=== PATIENT | female | born 1975 | race Caucasian/White ===

== ENCOUNTER 2017-11-20 15:06 | Observation (INO) | payer MEDICAID, SELFPAY ==
[2017-11-20 15:06] VITALS: BP 145/90; PULSE 111; RESP 16; TEMP 36.4; O2SAT 97; BMI 47.5
--- NOTE | 2017-11-20 15:36 | ED.VISSUMM ---
- ER Visit Summary Date of Service: 11/20/17 Chief Complaint: Headache History of Present Illness: The patient is a 42 F presenting with headache which started today and gradually worsened. She has had nausea, photophobia, vertigo. She denies vomiting. She states earlier in the week she had vomiting and diarrhea. This has since slowed down. She states her headache started today while out in the heat. She has a history of migraines but has not had one for some time and did not have any medications. She typically does not have vertigo associated with her headaches. She has a history of diabetes. Physical Examination: Vitals are stable. Patient is afebrile. Alert no acute distress. HEENT exam is unremarkable. Neck is supple. No meningismus Lungs are clear and equal bilaterally. Heart is regular rate and rhythm. Abdomen is soft nontender nondistended. Extremities are unremarkable. Skin is warm and dry. No focal neurologic deficit. Normal strength and sensation Remainder of exam is unremarkable. Emergency Department Course and Treatment: Patient is given IV fluids, Reglan, Benadryl. She had improvement but continues to have pain. She is given Toradol IV. CTA head unremarkable. CTA neck shows normal bilateral cervical carotid. There is either stenotic narrowing, slow flow, or occlusion of the distal right vertebral artery. Normal left Vertebral artery. Patient has had migraines in the past but she has never had associated vertigo. Discussed with Dr. Abdul and the hospitalist for admission. Disposition: Admission Impression: Headache, vertigo, abnormal CTA neck This note was generated with [employer] dictation software. It may contain incorrect words, spelling, and punctuation that were not noted in review of the chart prior to signing ED Disposition - Plan for ED Patient: Chief Complaint: Headache Referrals: Andrez Fischer MD [Primary Care Provider] -
[2017-11-20] MEDS: DiphenhydrAMINE 50 MG/ML Syringe 25 MG IV (15:47)
[2017-11-20] MEDS: 0.9% Normal Saline 1,000 ML 1000 ML IV (15:47)
[2017-11-20] MEDS: Metoclopramide 10 MG/2 ML Vial 5 MG IV (15:47)
[2017-11-20 16:13] LABS: Anion Gap 10 (5-15); BUN 7 mg/dL (7-18); BUN/Creat Ratio 8.5 RATIO (10-20); Calcium,Total 8.4 mg/dL (8.5-10.1); Chloride 99 mmol/L (98-107); Creatinine, Serum 0.82 mg/dL (0.55-1.02); EST Glomerular Filtration Rate 82 mL/min (>60); Est Glom Filt Rate - Afr Amer 99 mL/min (>60); Estimated Creatinine Clearance 72.13 ml/min; Glucose 192 mg/dL (74-106); Potassium 3.5 mmol/L (3.5-5.1); Sodium Level 135 mmol/L (136-145)
[2017-11-20] MEDS: Ketorolac 15 MG/ML Vial IV (16:58)
[2017-11-20] MEDS: 0.9% Normal Saline 1,000 ML 999 ML IV (16:58)
[2017-11-20 17:14] VITALS: RESP 16
--- NOTE | 2017-11-20 18:00 | CT_ITS ---
STUDY: CTA NECK WITH CONTRAST REASON FOR EXAM: Female, 42 years old. BRADFORD, DIZZY RADIATION DOSAGE (If Supplied By Facility): CTDIvol = ( 27.9 ) mGy, DLP = ( 1529.38 ) mGycm Individualized dose optimization techniques were used for this CT. TECHNIQUE: CT angiography with multi-detector data acquisition was performed from the aortic arch to the skull base following intravenous administration of 100 ml of Isovue 370 contrast. MIP images were reconstructed from the axial data set. Post-processing of the angiographic images was performed, with multiplanar reformation and 3D reconstruction. COMPARISON: None. FINDINGS: AORTIC ARCH: Normal visualized aortic arch. Normal origins of the brachiocephalic, left common carotid, and left subclavian arteries. RIGHT CAROTID ARTERIES: Normal right common carotid artery (CCA). Normal right common carotid bulb. Normal origin of the right internal carotid (ICA) artery without a hemodynamically significant stenosis. Normal visualized cervical portion of the right internal carotid artery. Normal origin of the right external carotid artery (ECA). LEFT CAROTID ARTERIES: Normal left common carotid artery (CCA). Normal left common carotid bulb. Normal origin of the left internal carotid (ICA) artery without a hemodynamically significant stenosis. Normal visualized cervical portion of the left internal carotid artery. Normal origin of the left external carotid artery (ECA). VERTEBRAL ARTERIES: There is enhancement within the bilateral vertebral arteries with a small right vertebral artery, and a dominant left vertebral artery. There is either stenotic narrowing, slow flow, or occlusion of the distal right vertebral artery. CT/CTA Neck W/WO Contrast IMPRESSION: Normal bilateral cervical carotid. There is either stenotic narrowing, slow flow, or occlusion of the distal right vertebral artery. Normal left Vertebral artery. ALL ABOVE CRITERIA BY NASCET. Electronically Signed: Bishop Vargas MD at 19:13 EDT , Service support ,
--- NOTE | 2017-11-20 18:00 | CT_ITS ---
STUDY: CTA OF THE BRAIN REASON FOR EXAM: Female, 42 years old. BRADFORD, DIZZY RADIATION DOSAGE (If Supplied By Facility): CTDIvol = ( 27.9 ) mGy, DLP = ( 1529.38 ) mGycm TECHNIQUE: CT angiography was performed with a multi-detector CT scanner. Data acquisition was obtained from the skull base through the vertex following intravenous administration of 100 ml of ISO 370. MIP images were reconstructed from the axial data set. Post-processing of the angiographic images was performed, with multiplanar reformation and MIPS reconstruction. Individualized dose optimization techniques were used for this CT. COMPARISON: None. FINDINGS: Normal bilateral petrous carotid arteries. Normal right cavernous carotid artery with a normal supraclinoid bifurcation. Normal left cavernous carotid artery with a normal supraclinoid bifurcation. Normal right A1 segments of the anterior cerebral artery. Normal left A1 segments of the anterior cerebral artery. Normal intact anterior communicating artery (ACOM). Normal bilateral A2 segments of the anterior cerebral arteries. Normal right M1 and M2 segments of the middle cerebral arteries, with a normal M1 bifurcation. Normal left M1 and M2 segments of the middle cerebral arteries, with a normal M1 bifurcation. There is non-visualization of the right posterior communicating artery (PCOM). Normal left posterior communicating artery (PCOM). Normal bilateral vertebral arteries. Normal basilar artery with a normal basilar bifurcation. The visualized bilateral superior cerebellar (SCA) arteries are normal. Normal bilateral P1, P2 and visualized P3 segments of the posterior cerebral arteries. There is no demonstrated aneurysm of the [place] of [place]. There is mild cerebral atrophy with widening of the extra-axial spaces and ventricular dilatation. There are areas of decreased attenuation within the white matter tracts of the supratentorial brain, consistent with microvascular disease changes. Normal basal ganglia and thalami. Normal brainstem. There is mild cerebellar atrophy. CT/CTA Head W/WO Contrast IMPRESSION: Normal [place] of [place] without a demonstrated aneurysm or hemodynamically significant stenosis. Electronically Signed: Bishop Vargas MD at 19:12 EDT , Service support ,
[2017-11-20 19:00] VITALS: RESP 16; O2SAT 97
--- NOTE | 2017-11-20 21:01 | PCM.HP.STD ---
Problem List (1) HTN (hypertension) Status: Chronic (2) Diabetes Status: Acute (3) Headache Status: Acute (4) Migraine Status: Acute History of Present Illness Date of Admission: 11/20/17 Chief Complaint: Headache and vertigo x 1 day. The patient is a 42 year old F with a significant history of hypertension, diabetes and migraine who presents with sudden onset severe occipital headache. Associated with symptoms is nausea, vertigo, weakness and photophobia. CTA neck showed either stenotic narrowing, slow flow or occlusion of the distal right vertebral artery. Per ED doctors conversation with Dr. Abdul this finding may be acute or chronic. ED doctor reported that Dr. Abdul suggested an MRI head for further investigation. Past Medical History Past Medical History (Chronic Problems): Chronic Problems HTN (hypertension) (Chronic) Migraine (Chronic) Allergies Penicillins Allergy (Verified 11/20/17 15:08) Hives venom-honey bee [bee venom (honey bee)] Allergy (Verified 11/20/17 15:08) Anaphylaxis Home Medications: Ambulatory Orders Medication Instructions Recorded Insulin Glargine,Hum.rec.anlog 40 unit SQ QHS 11/20/17 [Basaglar Kwikpen U-100] Liraglutide [Victoza] 1.8 mg SQ QHS 11/20/17 Lisinopril [Zestril] 20 mg PO QHS 11/20/17 Metformin HCl [Glucophage] 500 mg PO BIDCM 11/20/17 Omeprazole 40 mg PO QHS 11/20/17 Surgical History: noncontributory, - - Cholecystectomy, ectopic ; tubal ligation. Lives: With Family Smoking Status: Former smoker Alcohol: Occasional - *Family History Maternal History Items: Diabetes, Hypertension, No pertinent history Review of Systems Constitutional: Reports: Weakness HEENT: Reports: Head Aches. Denies: Sinus Congestion, Sinus Drainage Cardiovascular: Denies: Chest Pain, Palpitations Respiratory: Denies: Cough, Shortness of breath at rest, Sputum production Gastrointestinal: Reports: Nausea. Denies: Abdominal Pain, Vomiting Genitourinary: Denies: Dysuria Musculoskeletal: Denies: Joint Pain, Joint Tenderness Skin: Denies: Rash, Wounds Neurological: Denies: Numbness, Tingling, Focal weakness Psychiatric: Denies: Anxiety, Depression, Homicidal Ideations, Suicidal Ideations Hematologic/ Lymphatic: Denies: Easy Bruising, Easy Bleeding VTE Information - Inpt Only VTE Present on Admission: No VTE Mechan Device Prophylaxis: None VTE Pharm Prophylaxis ordered?: Yes Patient Problems: Active and Suspected Problems Diabetes (Acute) Headache (Acute) Migraine (Acute) - Physical Exam General: Alert, Oriented x3, Cooperative HEENT: Atraumatic, PERRLA, EOMI, Normocephalic Neck: Supple, No JVD, Negative Carotid Bruits Lungs: Clear to auscultation, Normal air movement Cardiovascular: Regular rate, No murmurs Abdomen: Bowel Sounds Present, Soft, Non Tender Extremities: No edema, Capillary Refill Less than 3 Seconds Skin: No rashes, No breakdown Musculoskeletal: No Tenderness to Palpation of Joints or Extremities Neurological: Cranial nerves II-XII grossly intact Psych/Mental Status: Normal Affect, Appropriate Vital Signs Temp Pulse Resp BP Pulse Ox 97.6 F L 111 H 16 145/90 H 97 11/20/17 15:06 11/20/17 15:06 11/20/17 19:00 11/20/17 15:06 11/20/17 19:00 Oxygen Delivery Method Room Air Weight: 117.934 kg Body Mass Index (BMI) 47.5 Finger Stick Blood Glucose 305 Laboratory Tests Past 24 Hrs 11/20/17 15:30 Sodium 135 L Potassium 3.5 Chloride 99 Carbon Dioxide 26.0 Anion Gap 10 BUN 7 Creatinine 0.82 Estim Creat Clear Calc 72.13 Est GFR (MDRD) Af Amer 99 Est GFR (MDRD) Non-Af 82 BUN/Creatinine Ratio 8.5 L Glucose 192 H Calcium 8.4 L Assessment/Plan All Active Problems Diabetes (Acute) Headache (Acute) Migraine (Acute) GERD (gastroesophageal reflux disease) (Acute) The patient is a 42 year old F with a significant history of hypertension, diabetes and migraine who presents with sudden onset severe occipital headache and with associated symptoms of nausea, vertigo, weakness and photophobia; and radiographic findings of either stenotic narrowing, slow flow or occlusion of the distal right vertebral artery. Headache and vertigo Differential diagnosis include a complex migraine CVA or other. Patient received Benadryl, Toradol, and Reglan at emergency department. Reglan and Toradol as needed continued. Stroke protocol with [facility]. Permissive hypertension for 24 hours Aspirin and high intensity statin started. Fasting lipids and hemoglobin A1c level ordered. We will hold off echo for now pending MRI. Neurology consulted. Hypertension Blood pressure fairly controlled at the time of admission. Hold antihypertensive medications Labetalol as needed for systolic blood pressure more than 220 or diastolic blood pressure more than 120. Diabetes Blood glucose not daily range at the time of admission. Basal and correction scale insulin ordered. Fingerstick blood sugars q. before meals at bedtime adjust insulin regimen as necessary. Home Victoza continued. Metformin held since patient received contrast at admission. GERD Protonix continued. DVT prophylaxis subcutaneous Lovenox. Code Visit OBSV E&M: 41113 Initial observation care L3
[2017-11-20 21:34] VITALS: BP 120/74; PULSE 99; RESP 18; O2SAT 94
[2017-11-20 22:40] VITALS: BP 120/74; PULSE 84; RESP 18; TEMP 36.4
--- NOTE | 2017-11-20 23:06 | NURSING ---
Er charge entry aware that pt ok for the floor at this time.
[2017-11-20 23:17] VITALS: BMI 46.3
[2017-11-21] VITALS (16 sets, daily range): BP systolic 113–162; BP diastolic 57–93; PULSE 76–93; RESP 15–18; TEMP 36.4–36.7; O2SAT 94–97; BMI 46.3
--- NOTE | 2017-11-21 00:15 | MRI_ITS ---
STUDY: MRI BRAIN WITHOUT CONTRAST REASON FOR EXAM: Female, 42 years old. Dizziness and headache. TECHNIQUE: Standardized multiplanar fat and water weighted pulse sequences were obtained. COMPARISON: [address] head[address] FINDINGS: Normal size of the ventricles and extra-axial spaces for the patient's age. Normal white matter tracts of the supratentorial brain. There is no evidence for recent intracranial ischemia or other cause of cytotoxic edema on diffusion weighted imaging (DWI). Normal T2* images of the brain without demonstrated susceptibility artifact. There is no demonstrated hemosiderin stain. Normal bilateral basal ganglia. Normal thalami. There is no extra-axial fluid accumulation. Normal flow voids within the major intracranial circulation suggesting patency by spin echo criteria. Normal sella turcica, pituitary gland, infundibular stalk, optic chiasm and hypothalamus. Normal tectal plate and pineal gland. Normal midbrain, italo and medulla. Normal cerebellum. Normal basal cisterns. Normal bilateral temporal bones. Normal bilateral internal auditory canals. No demonstrated orbital abnormality, within the constraints of a routine brain study. There is near complete opacification of the right maxillary sinus with fluid layering. Normal calvarium and skull base. Normal visualized soft tissue structures. Normal visualized upper cervical spine. MRI/Brain without Contrast IMPRESSION: 1. No evidence of acute intracranial bleed, mass or ischemia. 2. Right maxillary sinus opacification fluid layering, clinically correlate for patient's symptomology. Electronically Signed: Hugo Otto DO at 12:17 EDT , Service support ,
[2017-11-21] MEDS: Ketorolac 15 MG/ML Vial IV (00:53)
[2017-11-21 01:11] LABS: Bedside Glucose 241 mg/dL (70-110)
[2017-11-21] MEDS: Lisinopril 20 MG Tablet PO (01:13)
[2017-11-21] MEDS: Pantoprazole Sodium 40 MG Tablet PO ×2 (01:13→21:10)
[2017-11-21] MEDS: Metoclopramide 10 MG/2 ML Vial 5 MG IV ×2 (02:14→09:21)
[2017-11-21 06:25] LABS: Prothrombin Time (Protime)PT. 13.2 SECONDS (11.7-14.9)
[2017-11-21 06:29] LABS: Anion Gap 9 (5-15); BUN 9 mg/dL (7-18); BUN/Creat Ratio 13.2 RATIO (10-20); Calcium,Total 8.1 mg/dL (8.5-10.1); Chloride 103 mmol/L (98-107); Cholesterol 168 mg/dL (200); Creatinine, Serum 0.68 mg/dL (0.55-1.02); EST Glomerular Filtration Rate 102 mL/min (>60); Est Glom Filt Rate - Afr Amer 123 mL/min (>60); Estimated Creatinine Clearance 86.98 ml/min; Glucose 200 mg/dL (74-106); High Density Lipoprotein 31 mg/dL; Potassium 4.2 mmol/L (3.5-5.1); Sodium Level 140 mmol/L (136-145); Triglycerides 233 mg/dL; Very Low Density Lipoprotein 47 mg/dL (5-40)
[2017-11-21] MEDS: Acetaminophen 325 MG Tablet 650 MG PO (06:55)
[2017-11-21 07:05] LABS: Bedside Glucose 187 mg/dL (70-110)
[2017-11-21 07:13] LABS: Hemoglobin A1c 11.7 % (4.2-6.3)
[2017-11-21] MEDS: Insulin Lispro 100 UNIT/ML INSULN.PEN SQ ×4 (09:19→21:03)
[2017-11-21] MEDS: Aspirin 81 MG TAB.CHEW PO (09:20)
[2017-11-21] MEDS: Enoxaparin 40 MG/0.4 ML Syringe SC (09:21)
[2017-11-21] MEDS: 0.9% NaCl Peripheral Flush Adult/Peds IV ×3 (09:22→14:21)
[2017-11-21] MEDS: Glucerna Shake 120 ML LIQUID PO (09:23)
--- NOTE | 2017-11-21 09:50 | CON.PCM_ITS ---
Problem List (1) Status migrainosus Status: Acute Reason for Consult Date of Consultation: 11/21/17 Reason for Consultation: Headache, dizziness History of Present Illness: The patient is a 42 year old CF with PMH HTN, DM, Migraine, morbid obesity admitted with BRADFORD. Per patient she started having BRADFORD yesterday (11/20/17) which was occipital, severe, with photophobia, visual blurriness, nausea and dizziness. BRADFORD still continues per patient and is about 5/10 intensity. Per patient she has h/o migraines, was on Topamax for the same but has been off of Topamax for the past few years, did not have migraine BRADFORD for atleast 4-5 yrs per patient unless she started having BRADFORD yesterday. Denies any speech disturbances, focal motor weakness, sensory loss, confusion, or fever. [] Past Medical History Past Medical History (Chronic Problems): Chronic Problems HTN (hypertension) (Chronic) Migraine (Chronic) Allergies Penicillins Allergy (Verified 11/20/17 15:08) Hives venom-honey bee [bee venom (honey bee)] Allergy (Verified 11/20/17 15:08) Anaphylaxis Home Medications: Ambulatory Orders Medication Instructions Recorded Insulin Glargine,Hum.rec.anlog 40 unit SQ QHS 11/20/17 [Basaglar Kwikpen U-100] Liraglutide [Victoza] 1.8 mg SQ QHS 11/20/17 Lisinopril [Zestril] 20 mg PO QHS 11/20/17 Metformin HCl [Glucophage] 500 mg PO BIDCM 11/20/17 Omeprazole 40 mg PO QHS 11/20/17 Surgical History: noncontributory, - - Cholecystectomy, ectopic ; tubal ligation. Lives: With Family Smoking Status: Former smoker Alcohol: Occasional Drugs: None - *Family History Maternal History Items: Diabetes, Hypertension, No pertinent history Review of Systems Constitutional: Reports: - - complete ROS negative except as documented in HPI Patient Problems: Active and Suspected Problems Diabetes (Acute) Headache (Acute) Migraine (Acute) Status migrainosus (Acute) - Physical Exam General: Alert HEENT: Normocephalic Neck: Supple Lungs: Normal air movement Cardiovascular: Normal S1, Normal S2 Abdomen: Bowel Sounds Present Extremities: No cyanosis Neurological: - - consious, alert, AoAx3, CN 2-12 grossly intact, power 5/5 in all 4 extremities, no sensory loss, no cerebellar signs, Reflexes + B/L B/S/T/K/ A, gait deferred, fundus not visualized, patient has photophobia Psych/Mental Status: Normal Affect Vital Signs Temp Pulse Resp BP Pulse Ox 97.8 F 89 15 133/86 H 95 11/21/17 08:20 11/21/17 08:20 11/21/17 08:20 11/21/17 08:20 11/21/17 09:00 Oxygen Delivery Method Room Air Body Mass Index (BMI) 46.3 Intake and Output for Last 24 Hours 11/19/17 11/20/17 11/21/17 23:59 23:59 23:59 Intake Total 100 / 100 Balance 100 / 100 Laboratory Tests Past 24 Hrs 11/21/17 11/21/17 11/21/17 00:35 05:30 05:30 PT 13.2 INR 1.0 Sodium 140 Potassium 4.2 Chloride 103 Carbon Dioxide 28.0 Anion Gap 9 BUN 9 Creatinine 0.68 Estim Creat Clear Calc 86.98 Est GFR (MDRD) Af Amer 123 Est GFR (MDRD) Non-Af 102 BUN/Creatinine Ratio 13.2 Glucose 200 H Hemoglobin A1c Calcium 8.1 L Troponin I < 0.015 Triglycerides 233 H Cholesterol 168 LDL Cholesterol 90 VLDL Cholesterol 47 H HDL Cholesterol 31 L 11/21/17 05:30 PT INR Sodium Potassium Chloride Carbon Dioxide Anion Gap BUN Creatinine Estim Creat Clear Calc Est GFR (MDRD) Af Amer Est GFR (MDRD) Non-Af BUN/Creatinine Ratio Glucose Hemoglobin A1c 11.7 H Calcium Troponin I Triglycerides Cholesterol LDL Cholesterol VLDL Cholesterol HDL Cholesterol POC Glucose 11/21/17 11/21/17 06:49 01:03 POC Glucose 187 H 241 H Assessment/Plan All Active Problems Diabetes (Acute) Headache (Acute) Migraine (Acute) Status migrainosus (Acute) GERD (gastroesophageal reflux disease) (Acute) The patient is a 42 year old CF with PMH HTN, DM, Migraine, morbid obesity admitted with BRADFORD. Per patient she started having BRADFORD yesterday (11/20/17) which was occipital, severe, with photophobia, visual blurriness, nausea and dizziness. BRADFORD still continues per patient and is about 5/10 intensity. Per patient she has h/o migraines, was on Topamax for the same but has been off of Topamax for the past few years, did not have migraine BRADFORD for atleast 4-5 yrs per patient unless she started having BRADFORD yesterday. Denies any speech disturbances, focal motor weakness, sensory loss, confusion, or fever. CTA head/ neck reported to show right vert stenosis vs occlusion Impression Likely Status Migrainosus Plan -On ASA and Lipitor. Started by hospitalist. Bleeding risks discussed. -Check MRI brain w/o contrast -Recommend Depakote 1 g IV BID for 24 hrs -Recommend Magnesium Sulphate 1 g iv once -Will avoid Decadron due to uncontrolled DM- Hba1c 11.7, needs endocrinology consult -Recommend Toradol 30 mg IV q 6 hrly PRN BRADFORD and Compazine prn -Check ESR -GI/DVT prophylaxis -PT/OT -Fall precautions -Further medical management per primary team. -Follow up with Neurology as outpatient in 4-6 weeks. -Please call with questions if any -Thank you for allowing us to participate in patient's care and management I spent 60 minutes taking history, doing physical examination, reviewing medical records, coordinating care and counseling the patient. Code Visit Inpatient E&M: 66309 Init Hosp L3
[2017-11-21 10:21] LABS: Erythrocyte Sedimentation Rate 9 mm/hr (0-20)
--- NOTE | 2017-11-21 12:42 | PCM.PROGNOTE ---
<Desirae Mora - Last Filed: 11/21/17 13:13> Patient Problems: Active and Suspected Problems Diabetes (Acute) Headache (Acute) Migraine (Acute) Status migrainosus (Acute) Subjective: Patient seen and examined. Complains of continued posterior headache. Reports a history of migraines although states she has not had any in a few years. Currently watching TV and using laptop. Does not appear to be uncomfortable. Denies other neurologic symptoms/complaints. - Physical Exam General: Alert, Oriented x3, Cooperative, No apparent distress HEENT: Atraumatic, PERRLA, EOMI, Normocephalic Neck: Supple, No JVD, Negative Carotid Bruits Lungs: Clear to auscultation, Normal air movement Cardiovascular: Regular rate, Regular Rhythm, Normal S1, Normal S2, No murmurs Abdomen: Bowel Sounds Present, Soft, Non Tender, Non-Distended, Obese Extremities: No clubbing, No cyanosis, No edema, Capillary Refill Less than 3 Seconds Skin: No rashes, No breakdown Musculoskeletal: No Tenderness to Palpation of Joints or Extremities Neurological: Cranial nerves II-XII grossly intact, Neuro grossly intact Psych/Mental Status: Normal Affect, Appropriate Vital Signs Temp Pulse Resp BP Pulse Ox 97.8 F 89 15 133/86 H 95 11/21/17 08:20 11/21/17 08:20 11/21/17 08:20 11/21/17 08:20 11/21/17 09:00 Oxygen Delivery Method Room Air Weight: 253 lb 1.451 oz Body Mass Index (BMI) 46.3 Intake and Output for Last 24 Hours 11/19/17 11/20/17 11/21/17 23:59 23:59 23:59 Intake Total 100 / 100 Balance 100 / 100 Laboratory Tests Past 24 Hrs 11/21/17 11/21/17 11/21/17 00:35 05:30 05:30 ESR PT 13.2 INR 1.0 Sodium 140 Potassium 4.2 Chloride 103 Carbon Dioxide 28.0 Anion Gap 9 BUN 9 Creatinine 0.68 Estim Creat Clear Calc 86.98 Est GFR (MDRD) Af Amer 123 Est GFR (MDRD) Non-Af 102 BUN/Creatinine Ratio 13.2 Glucose 200 H Hemoglobin A1c Calcium 8.1 L Troponin I < 0.015 Triglycerides 233 H Cholesterol 168 LDL Cholesterol 90 VLDL Cholesterol 47 H HDL Cholesterol 31 L 11/21/17 11/21/17 05:30 05:30 ESR 9 PT INR Sodium Potassium Chloride Carbon Dioxide Anion Gap BUN Creatinine Estim Creat Clear Calc Est GFR (MDRD) Af Amer Est GFR (MDRD) Non-Af BUN/Creatinine Ratio Glucose Hemoglobin A1c 11.7 H Calcium Troponin I Triglycerides Cholesterol LDL Cholesterol VLDL Cholesterol HDL Cholesterol POC Glucose 11/21/17 11/21/17 06:49 01:03 POC Glucose 187 H 241 H Medical Necessity - Tobacco Use Smoking Status: Former smoker Assessment/Plan All Active Problems Diabetes (Acute) Headache (Acute) Migraine (Acute) Status migrainosus (Acute) GERD (gastroesophageal reflux disease) (Acute) 1. Status migrainosus-acute CVA ruled out. Continue aspirin, statin given risk factors. Neurology following. Started on Depakote 1 g IV twice daily for 24 hours. Mag sulfate 1 g IV ?1. Toradol 30 mg IV every 6 as needed. ESR ordered. Plan to discharge tomorrow morning if improved. Follow up with neurology in 4-6 weeks. MRI of brain without evidence of intracranial bleed, mass or ischemia. Next CTA showed normal bilateral cervical carotids. Right vertebral artery with either stenotic narrowing, slow flow or occlusion of the distal right vertebral artery. Neurology suspects this is an old finding. 2. Uncontrolled type 2 diabetes mellitus-hemoglobin A1c 11.7%. Patient reports her glucose has been difficult to control. Continue long-acting regimen. Patient on Victoza at home as well. Accu-Cheks before meals at bedtime with sliding scale insulin. Hold home metformin regimen. 3. Hypertension-stable, continue home lisinopril regimen. 4. Hyperlipidemia-initiated on statin. 5. GERD-continue PPI. 6. Morbid obesity-encourage Dilantin medications. Nutrition consult. DVT prophylaxis-Lovenox subcu. This patient was seen by OTILIO Gannon under the supervision of Dr. Yanez. <Evelia Yanez - Last Filed: 11/21/17 16:09> - Physical Exam Vital Signs Temp Pulse Resp BP Pulse Ox 97.7 F L 86 16 137/86 H 97 11/21/17 14:20 11/21/17 14:20 11/21/17 14:20 11/21/17 14:20 11/21/17 14:20 Oxygen Delivery Method Room Air Weight: 114.8 kg Body Mass Index (BMI) 46.3 Intake and Output for Last 24 Hours 11/19/17 11/20/17 11/21/17 23:59 23:59 23:59 Intake Total 520 / 520 Balance 520 / 520 Laboratory Tests Past 24 Hrs 11/21/17 11/21/17 11/21/17 00:35 05:30 05:30 ESR PT 13.2 INR 1.0 Sodium 140 Potassium 4.2 Chloride 103 Carbon Dioxide 28.0 Anion Gap 9 BUN 9 Creatinine 0.68 Estim Creat Clear Calc 86.98 Est GFR (MDRD) Af Amer 123 Est GFR (MDRD) Non-Af 102 BUN/Creatinine Ratio 13.2 Glucose 200 H Hemoglobin A1c Calcium 8.1 L Troponin I < 0.015 Triglycerides 233 H Cholesterol 168 LDL Cholesterol 90 VLDL Cholesterol 47 H HDL Cholesterol 31 L 11/21/17 11/21/17 05:30 05:30 ESR 9 PT INR Sodium Potassium Chloride Carbon Dioxide Anion Gap BUN Creatinine Estim Creat Clear Calc Est GFR (MDRD) Af Amer Est GFR (MDRD) Non-Af BUN/Creatinine Ratio Glucose Hemoglobin A1c 11.7 H Calcium Troponin I Triglycerides Cholesterol LDL Cholesterol VLDL Cholesterol HDL Cholesterol POC Glucose 11/21/17 11/21/17 11/21/17 12:50 06:49 01:03 POC Glucose 206 H 187 H 241 H Assessment/Plan Patient reviewed independently of [employer] Patient has what appears to be basilar type status migrainosus. Has been seen by neurology and input is greatly appreciated. Will continue to monitor Code Visit Inpatient E&M: 40259 Subs Hosp L2
[2017-11-21 14:01] LABS: Bedside Glucose 206 mg/dL (70-110)
[2017-11-21] MEDS: Magnesium Sulfate 1 GM in 0.9% Normal Saline 100 ML IV (14:14)
[2017-11-21 17:46] LABS: Bedside Glucose 287 mg/dL (70-110)
[2017-11-21] MEDS: Atorvastatin Calcium 40 MG Tablet PO (21:10)
[2017-11-21 22:41] LABS: Bedside Glucose 254 mg/dL (70-110)
[2017-11-22 03:00] VITALS: PULSE 83
[2017-11-22 03:55] VITALS: BP 120/74; PULSE 84; RESP 18; TEMP 36.6; O2SAT 93
[2017-11-22] MEDS: 0.9% NaCl Peripheral Flush Adult/Peds IV (05:02)
[2017-11-22 06:19] LABS: Hematocrit 39.6 % (37-47); Hemoglobin 12.9 g/dl (12.0-15.0); Mean Corp Hgb Conc 32.6 g/gl (32-36); Mean Corpuscular Hgb 29.9 pg (27.0-32.0); Mean Corpuscular Volume 91.7 fL (81-99); Mean Platelet Vol. 11.5 fl (6.2-12.0); Platelet Count 186 K/mm3 (150-450); RBC Distribution Width CV 12.1 % (11.6-14.6); RBC Distribution Width SD 39.9 fl (35.1-43.9); Red Blood Count 4.32 M/mm3 (4.2-5.4); Scan Indicated on CBC? Y/N NO; White Blood Count 5.6 K/mm3 (4.4-11.0)
[2017-11-22 06:50] LABS: Bedside Glucose 256 mg/dL (70-110)
[2017-11-22 07:08] VITALS: PULSE 85
[2017-11-22 07:36] VITALS: O2SAT 96
[2017-11-22] MEDS: Insulin Lispro 100 UNIT/ML INSULN.PEN SQ (08:36)
[2017-11-22] MEDS: Aspirin 81 MG TAB.CHEW PO (08:36)
[2017-11-22 08:45] VITALS: RESP 18
--- NOTE | 2017-11-22 09:49 | DCINST_ITS ---
- Discharge Diagnoses Current Active Problems: Current Active and Chronic Problems HTN (hypertension) (Chronic) Diabetes (Acute) Headache (Acute) Migraine (Acute) Status migrainosus (Acute) You will use the following diet at home:: Calorie/Carbohydrate Controlled ( specify 1200, 1400, etc) Discharge Activity: Return to Normal Activity Call your doctor if you observe: Shortness of breath, Dizziness, Fainting spells , Chest pain Allergies/Adverse Reactions: Allergies Penicillins Allergy (Verified 11/20/17 15:08) Hives venom-honey bee [bee venom (honey bee)] Allergy (Verified 11/20/17 15:08) Anaphylaxis Medications to take at Discharge Insulin Glargine,Hum.rec.anlog [Basaglar Kwikpen U-100] 40 unit SQ QHS 11/20/17 Liraglutide [Victoza] 1.8 mg SQ QHS 11/20/17 Lisinopril [Zestril] 20 mg PO QHS 11/20/17 Omeprazole 40 mg PO QHS 11/20/17 Aspirin [Aspirin, Baby] 81 mg PO DAILY@0800 #30 tab.chew 11/22/17 Atorvastatin Calcium [Lipitor] 40 mg PO QHS #30 tab 11/22/17 Metformin HCl [Glucophage] 1,000 mg PO BIDCM #60 tab 11/22/17 The following prescriptions were given: Aspirin [Aspirin, Baby] 81 mg PO DAILY@0800 #30 tab.chew Atorvastatin Calcium [Lipitor] 40 mg PO QHS #30 tab Metformin HCl [Glucophage] 1,000 mg PO BIDCM #60 tab Primary Care Physician: Andrez Fischer MD [Primary Care Provider] - Please follow up with your Primary Care Physician in: 1 Week Test Results: Test results from this visit will be discussed in further detail at your follow- up appointment, if applicable. Please Follow Up With: Endocrinology - Diabetes management When: 1-2 Weeks Please Follow Up With: Destini Abdul MD - Neurology When: 4-6 Weeks Proposed Discharge Date: 11/22/17
--- NOTE | 2017-11-22 09:50 | PCM.DC.SUM ---
<Desirae Mora - Last Filed: 11/22/17 09:56> Discharge Date and Diagnosis Date of Admission: 11/20/17 Date of Discharge: 11/22/17 - Primary Discharge Diagnosis Active and Suspected Problems 1. Status migrainosus 2. Uncontrolled type 2 diabetes mellitus 3. Hyperlipidemia - Secondary Discharge Diagnosis Chronic Problems HTN (hypertension) (Chronic) Migraine (Chronic) GERD Hospital Course and Treatment Imaging Results: Diagnostic Data Head CTA 11/20/17 18:00 IMPRESSION: Normal [place] without a demonstrated aneurysm or hemodynamically significant stenosis. Electronically Signed: Bishop Vargas MD at 19:12 EDT , Service support , Neck CTA 11/20/17 18:00 IMPRESSION: Normal bilateral cervical carotid. There is either stenotic narrowing, slow flow, or occlusion of the distal right vertebral artery. Normal left Vertebral artery. ALL ABOVE CRITERIA BY NASCET. Electronically Signed: Bishop Vargas MD at 19:13 EDT , Service support , Brain MRI 11/21/17 00:15 IMPRESSION: 1. No evidence of acute intracranial bleed, mass or ischemia. 2. Right maxillary sinus opacification fluid layering, clinically correlate for patient's symptomology. Electronically Signed: Hugo Otto DO at 12:17 EDT , Service support , Dr. Abdul- Neurology Operations: None Procedures: None Summary of Care Provided: The patient is a 42 year old F admitted 11/20/2017 due to headache and vertigo. She has a past medical history of hypertension, hyperlipidemia, poorly controlled type 2 diabetes mellitus, GERD, history of migraines. 1. Status migrainosus-acute CVA ruled out. Continue aspirin, statin given risk factors. Neurology consulted during admission. Started on Depakote 1 g IV twice daily for 24 hours. Mag sulfate 1 g IV ?1. Toradol 30 mg IV every 6 as needed. ESR 9. Headache completely resolved. Follow up with neurology in 4-6 weeks. If patient has recurrent migraines, further prophylactic medications can be discussed with neurology as outpatient. MRI of brain without evidence of intracranial bleed, mass or ischemia. Next CTA showed normal bilateral cervical carotids. Right vertebral artery with either stenotic narrowing, slow flow or occlusion of the distal right vertebral artery. Neurology suspects this is an old finding. 2. Uncontrolled type 2 diabetes mellitus-hemoglobin A1c 11.7%. Patient reports her glucose has been difficult to control. Continue long-acting regimen. Patient on Victoza at home as well. Home metformin regimen increased to 1000 mg twice daily. Recommend follow-up with endocrinology in 1-2 weeks. Patient states she has already established with [employer] ready to [employer]. 3. Hypertension-stable, continue home lisinopril regimen. 4. Hyperlipidemia-initiated on statin. 5. GERD-continue PPI. 6. Morbid obesity-encourage Dilantin medications. General: Alert, Oriented x3, Cooperative, No apparent distress HEENT: Atraumatic, PERRLA, EOMI, Normocephalic Neck: Supple, No JVD, Negative Carotid Bruits Lungs: Clear to auscultation, Normal air movement Cardiovascular: Regular rate, Regular Rhythm, Normal S1, Normal S2, No murmurs Abdomen: Bowel Sounds Present, Soft, Non Tender, Non-Distended, Obese Extremities: No clubbing, No cyanosis, No edema, Capillary Refill Less than 3 Seconds Skin: No rashes, No breakdown Musculoskeletal: No Tenderness to Palpation of Joints or Extremities Neurological: Cranial nerves II-XII grossly intact, Neuro grossly intact Psych/Mental Status: Normal Affect, Appropriate Patient seen exam prior to discharge. Physical assessment as noted above. Patient stable for discharge home with follow-up recommendations as noted above. This patient was seen by OTILIO Gannon under the supervision of Dr. Yanez. Discharge Diet: Low fat/ Low Cholesterol, 1800 Calorie Control Diet, Carb Control Diet Discharge Activity: Return to Normal Activity Call your doctor if you observe: Shortness of breath, Dizziness, Fainting spells, Chest pain Home Medications: Medications to take at Discharge Insulin Glargine,Hum.rec.anlog [Basaglar Kwikpen U-100] 40 unit SQ QHS 11/20/17 Liraglutide [Victoza] 1.8 mg SQ QHS 11/20/17 Lisinopril [Zestril] 20 mg PO QHS 11/20/17 Omeprazole 40 mg PO QHS 11/20/17 Aspirin [Aspirin, Baby] 81 mg PO DAILY@0800 #30 tab.chew 11/22/17 Atorvastatin Calcium [Lipitor] 40 mg PO QHS #30 tab 11/22/17 Metformin HCl [Glucophage] 1,000 mg PO BIDCM #60 tab 11/22/17 Following Prescrptions Were Given to Patient: Aspirin [Aspirin, Baby] 81 mg PO DAILY@0800 #30 tab.chew Atorvastatin Calcium [Lipitor] 40 mg PO QHS #30 tab Metformin HCl [Glucophage] 1,000 mg PO BIDCM #60 tab Primary Care Physician: Andrez Fischer MD [Primary Care Provider] - Please follow up with your Primary Care Physician in: 1 Week Please Follow Up With: Endocrinology - Diabetes management When: 1-2 Weeks Please Follow Up With: Destini Abdul MD - Neurology When: 4-6 Weeks Disposition: Home Minutes spent on discharge:: 35 Patient Condition:: Stable Medical Necessity - Tobacco Use Smoking Status: Former smoker Meaningful Use Info Meaningful Use Diagnoses (Choose all that apply): None applicable <Evelia Yanez - Last Filed: 11/22/17 18:48> Discharge Date and Diagnosis - Primary Discharge Diagnosis Evaluated independently and discussed with Desirae CEVALLOS and agree with findings and assessment and plan Patient stable for discharge - Secondary Discharge Diagnosis Chronic Problems HTN (hypertension) (Chronic) Migraine (Chronic) Hospital Course and Treatment Summary of Care Provided: The patient is a 42 year old F []
[2017-11-22 09:52] VITALS: BP 153/90; PULSE 94; RESP 18; TEMP 36.7; O2SAT 97
--- NOTE | 2017-11-22 09:56 | DS.PCM_ITS ---
<Desirae Mora - Last Filed: 11/22/17 09:56> Discharge Date and Diagnosis Date of Admission: 11/20/17 Date of Discharge: 11/22/17 - Primary Discharge Diagnosis Active and Suspected Problems 1. Status migrainosus 2. Uncontrolled type 2 diabetes mellitus 3. Hyperlipidemia - Secondary Discharge Diagnosis Chronic Problems HTN (hypertension) (Chronic) Migraine (Chronic) GERD Hospital Course and Treatment Imaging Results: Diagnostic Data Head CTA 11/20/17 18:00 IMPRESSION: Normal [place] without a demonstrated aneurysm or hemodynamically significant stenosis. Electronically Signed: Bishop Vargas MD at 19:12 EDT , Service support , Neck CTA 11/20/17 18:00 IMPRESSION: Normal bilateral cervical carotid. There is either stenotic narrowing, slow flow, or occlusion of the distal right vertebral artery. Normal left Vertebral artery. ALL ABOVE CRITERIA BY NASCET. Electronically Signed: Bishop Vargas MD at 19:13 EDT , Service support , Brain MRI 11/21/17 00:15 IMPRESSION: 1. No evidence of acute intracranial bleed, mass or ischemia. 2. Right maxillary sinus opacification fluid layering, clinically correlate for patient's symptomology. Electronically Signed: Hugo Otto DO at 12:17 EDT , Service support , Dr. Abdul- Neurology Operations: None Procedures: None Summary of Care Provided: The patient is a 42 year old F admitted 11/20/2017 due to headache and vertigo. She has a past medical history of hypertension, hyperlipidemia, poorly controlled type 2 diabetes mellitus, GERD, history of migraines. 1. Status migrainosus-acute CVA ruled out. Continue aspirin, statin given risk factors. Neurology consulted during admission. Started on Depakote 1 g IV twice daily for 24 hours. Mag sulfate 1 g IV ?1. Toradol 30 mg IV every 6 as needed. ESR 9. Headache completely resolved. Follow up with neurology in 4 -6 weeks. If patient has recurrent migraines, further prophylactic medications can be discussed with neurology as outpatient. MRI of brain without evidence of intracranial bleed, mass or ischemia. Next CTA showed normal bilateral cervical carotids. Right vertebral artery with either stenotic narrowing, slow flow or occlusion of the distal right vertebral artery. Neurology suspects this is an old finding. 2. Uncontrolled type 2 diabetes mellitus-hemoglobin A1c 11.7%. Patient reports her glucose has been difficult to control. Continue long-acting regimen. Patient on Victoza at home as well. Home metformin regimen increased to 1000 mg twice daily. Recommend follow-up with endocrinology in 1-2 weeks. 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 3. Hypertension-stable, continue home lisinopril regimen. 4. Hyperlipidemia-initiated on statin. 5. GERD-continue PPI. 6. Morbid obesity-encourage Dilantin medications. General: Alert, Oriented x3, Cooperative, No apparent distress HEENT: Atraumatic, PERRLA, EOMI, Normocephalic Neck: Supple, No JVD, Negative Carotid Bruits Lungs: Clear to auscultation, Normal air movement Cardiovascular: Regular rate, Regular Rhythm, Normal S1, Normal S2, No murmurs Abdomen: Bowel Sounds Present, Soft, Non Tender, Non-Distended, Obese Extremities: No clubbing, No cyanosis, No edema, Capillary Refill Less than 3 Seconds Skin: No rashes, No breakdown Musculoskeletal: No Tenderness to Palpation of Joints or Extremities Neurological: Cranial nerves II-XII grossly intact, Neuro grossly intact Psych/Mental Status: Normal Affect, Appropriate Patient seen exam prior to discharge. Physical assessment as noted above. Patient stable for discharge home with follow-up recommendations as noted above. This patient was seen by OTILIO Gannon under the supervision of Dr. Yanez. Discharge Diet: Low fat/ Low Cholesterol, 1800 Calorie Control Diet, Carb Control Diet Discharge Activity: Return to Normal Activity Call your doctor if you observe: Shortness of breath, Dizziness, Fainting spells , Chest pain Home Medications: Medications to take at Discharge Insulin Glargine,Hum.rec.anlog [Basaglar Kwikpen U-100] 40 unit SQ QHS 11/20/17 Liraglutide [Victoza] 1.8 mg SQ QHS 11/20/17 Lisinopril [Zestril] 20 mg PO QHS 11/20/17 Omeprazole 40 mg PO QHS 11/20/17 Aspirin [Aspirin, Baby] 81 mg PO DAILY@0800 #30 tab.chew 11/22/17 Atorvastatin Calcium [Lipitor] 40 mg PO QHS #30 tab 11/22/17 Metformin HCl [Glucophage] 1,000 mg PO BIDCM #60 tab 11/22/17 Following Prescrptions Were Given to Patient: Aspirin [Aspirin, Baby] 81 mg PO DAILY@0800 #30 tab.chew Atorvastatin Calcium [Lipitor] 40 mg PO QHS #30 tab Metformin HCl [Glucophage] 1,000 mg PO BIDCM #60 tab Primary Care Physician: Andrez Fischer MD [Primary Care Provider] - Please follow up with your Primary Care Physician in: 1 Week Please Follow Up With: Endocrinology - Diabetes management When: 1-2 Weeks Please Follow Up With: Destini Abdul MD - Neurology When: 4-6 Weeks Disposition: Home Minutes spent on discharge:: 35 Patient Condition:: Stable Medical Necessity - Tobacco Use Smoking Status: Former smoker Meaningful Use Info Meaningful Use Diagnoses (Choose all that apply): None applicable <Evelia Yanez - Last Filed: 11/22/17 18:48> Discharge Date and Diagnosis - Primary Discharge Diagnosis Evaluated independently and discussed with Desirae CEVALLOS and agree with findings and assessment and plan Patient stable for discharge - Secondary Discharge Diagnosis Chronic Problems HTN (hypertension) (Chronic) Migraine (Chronic) Hospital Course and Treatment Summary of Care Provided: The patient is a 42 year old F []
== END 2017-11-22 09:48 | disposition home or self-care (01) ==
LOC: ED 17:55 → PCU 23:21
PROVIDERS: Nurse Practitioner Family; Psychiatry & Neurology Neurology; Admitting Provider Hospitalist; Emergency Provider Emergency Medicine; Family Provider Family Medicine; PCP Family Medicine; Visit Provider Internal Medicine
DX: G43.901 Migraine, unspecified, not intractable, with status migrainosus (principal); E11.65 Type 2 diabetes mellitus with hyperglycemia; I10 Essential (primary) hypertension; K21.9 Gastro-esophageal reflux disease without esophagitis; E78.5 Hyperlipidemia, unspecified; E66.01 Morbid (severe) obesity due to excess calories; Z68.42 Body mass index [BMI] 45.0-49.9, adult; Z71.3 Dietary counseling and surveillance; Z79.899 Other long term (current) drug therapy; Z79.4 Long term (current) use of insulin; Z87.891 Personal history of nicotine dependence
CPT/HCPCS: 36415; 70496; 70498; 70551; 80048; 80061; 82962; 83036; 84484; 85027; 85610; 85652; 96365; 96366; 96372; 96375; 96376; 97162; 97165; 97802; 99218; 99283; J7030; J7040; Q9967; A4216; G0378

== ENCOUNTER 2018-02-12 20:06 | Emergency (ER) | payer MEDICAID, SELFPAY ==
[2018-02-12 20:06] VITALS: BP 181/106; PULSE 79; RESP 18; TEMP 36; O2SAT 98; BMI 43.9
--- NOTE | 2018-02-12 20:13 | RAD_ITS ---
STUDY: X-RAY - LEFT WRIST REASON FOR EXAM: Female, 42 years old. Patient fell about 10 days ago, left wrist pain TECHNIQUE: 3 view(s) of the wrist were obtained. COMPARISON: None. FINDINGS: Normal visualized distal radius and ulna. Normal radiocarpal articulation. Normal distal radioulnar articulation. Normal carpal bones. Normal carpal articulations. Normal carpometacarpal articulation of the thumb. Normal second through fifth carpometacarpal articulations. Normal visualized metacarpal bones. The soft tissue structures are unremarkable. RAD/Wrist min 3 Views IMPRESSION: No fracture or malalignment. Electronically Signed: Sam Mcclure MD at 23:51 EST , Service support ,
--- NOTE | 2018-02-12 20:13 | RAD_ITS ---
STUDY: X-RAY - LUMBAR SPINE REASON FOR EXAM: Female, 42 years old. Patient fell about 10 days ago, low back pain mostly on the right side TECHNIQUE: 3 view(s) of the lumbar spine were obtained. COMPARISON: None FINDINGS: Normal lumbar lordosis. There is no substantial scoliosis. Grade 1 spondylolisthesis of L4-L5 is due to facet arthropathy. There is multilevel endplate spondylosis of the lumbar vertebrae. Normal disc space heights. There is no demonstrated fracture. The soft tissue structures are unremarkable. Cholecystectomy clips are present. Tubal ligation clips are present. RAD/Lumbar Spine 2 or 3 Views IMPRESSION: 1. No lumbar spine fracture. 2. Facet dominant degenerative changes, as above. Electronically Signed: Sam Mcclure MD at 23:50 EST , Service support ,
--- NOTE | 2018-02-12 20:15 | ED.DCSUM_ITS ---
- ER Visit Summary Date of Service: 02/12/18 Chief Complaint: Back pain, wrist pain History of Present Illness: The patient is a 42 F presents to the emergency department after mechanical fall. Patient states that about 10 days ago, she tripped over her dog. She fell striking the dorsum of her left wrist and fell forward with her legs over top of her. She states that he felt something pop in her low back. Since then, she has had intermittent shooting pain down her right leg. She denies any problems with bowel or bladder. She has been taking anti- inflammatories with little improvement. She did not strike her head. She denies loss of consciousness. Physical Examination: Afebrile, vitals unremarkable. Well-appearing female no acute distress. Head is normocephalic, atraumatic. Pupil's equal round reactive, extraocular muscles intact. Neck supple. Heart regular rate and rhythm. Lungs clear, chest nontender. Abdomen soft, nontender, nondistended. No pulsatile mass. Patient has paraspinal tenderness in the lumbar area, but no bony tenderness. Straight leg raise is negative bilaterally. 2+ symmetric lower extremity pulses. 2+ reflexes. No clonus. No weakness of dorsiflexion, plantar flexion, or extensor hallucis longus bilaterally. Test Results: [] Emergency Department Course and Treatment: The patient presents after mechanical fall. Her examination is relatively unremarkable. I did obtain plain films of her back and of her wrist. There is no evidence of acute fracture. She has no red flag symptoms. Patient be treated with 2 days of analgesics and antispasmodics. She will be discharged home. Treatment Plan: [] Disposition: Discharge Impression: 1. Lumbar strain status post fall 2. Left wrist sprain status post fall This note was generated with [employer] dictation software. It may contain incorrect words, spelling, and punctuation that were not noted in review of the chart prior to signing ED Disposition - Plan for ED Patient: Disposition: Home or Assisted Living Chief Complaint: Fall Instructions: ED Mechanical Fall Prescriptions: RX: traMADol [Ultram] 50 mg PO Q6H PRN PRN 3 Days #8 tab PRN Reason: Pain Cyclobenzaprine [Flexeril] 10 mg PO TID PRN #20 tab PRN Reason: Muscle Spasm Referrals: Andrez Fischer MD [Primary Care Provider] -
--- NOTE | 2018-02-12 20:17 | ED.RN ---
PT STATES SHE DOES NOT KNOW HER HOME MEDICATIONS.
[2018-02-12] MEDS: traMADol 50 MG Tablet PO (20:31)
[2018-02-12 22:28] VITALS: BP 140/82; RESP 16
== END 2018-02-12 22:30 | disposition home or self-care (01) ==
PROVIDERS: Emergency Provider Emergency Medicine; Family Provider Family Medicine; PCP Family Medicine
DX: S39.012A Strain of muscle, fascia and tendon of lower back, initial encounter (principal); S63.502A Unspecified sprain of left wrist, initial encounter; W18.31XA Fall on same level due to stepping on an object, initial encounter; Y93.9 Activity, unspecified; Y92.89 Other specified places as the place of occurrence of the external cause; Y99.8 Other external cause status; E11.9 Type 2 diabetes mellitus without complications
CPT/HCPCS: 72100; 73110; 99282

== ENCOUNTER 2018-03-29 07:22 | Observation (INO) | payer MEDICAID, SELFPAY ==
[2018-03-29] VITALS (12 sets, daily range): BP systolic 136–163; BP diastolic 84–109; PULSE 74–93; RESP 16–21; TEMP 36.5–36.8; O2SAT 95–98; BMI 42.4
--- NOTE | 2018-03-29 07:30 | ED.RN ---
PT NOT TAKING ANY BP MEDS OR CHOLESTEROL MEDS AT THIS TIME. STOPPED. NOT TAKING BABY ASPIRIN
--- NOTE | 2018-03-29 07:37 | EKG12_ITS ---
Test Reason : FR Blood Pressure : / mmHG Vent. Rate : 077 BPM Atrial Rate : 077 BPM P-R Int : 134 ms QRS Dur : 086 ms QT Int : 382 ms P-R-T Axes : 029 008 018 degrees QTc Int : 432 ms Normal sinus rhythm Poor R wave progression Confirmed by CHAI SANTIAGO, MINA ([id number]), supervising film or videotape editor JOANNE HU ([id number] on 03/30/2018 1:39:01 PM Referred By: EFRA Confirmed By:MINA PAULA MD
--- NOTE | 2018-03-29 07:37 | RAD_ITS ---
STUDY: X-RAY CHEST REASON FOR EXAM: Female, 42 years old. Chest pain TECHNIQUE: Single AP portable view of the chest. COMPARISON: None. FINDINGS: The lungs are clear and expanded. There is no demonstrated pleural abnormality. There is borderline cardiomegaly. Normal mediastinum and alethea. Normal visualized pulmonary arteries. Normal visualized aortic arch and descending thoracic aorta. Normal visualized thoracic spine. Normal visualized ribs, clavicles, and shoulders. There is no demonstrated abnormality of the visualized soft tissue structures of the upper abdomen. RAD/Chest 1 View (Portable) IMPRESSION: Normal x-ray examination of the chest. Electronically Signed: Jose Luis Aviles DO at 8:11 EST Tel , Service support ,
--- NOTE | 2018-03-29 07:49 | ED.VISSUMM ---
- ER Visit Summary Date of Service: 03/29/18 Chief Complaint: Selectively triaged himself there appropriately chest heaviness/tightness that awoke patient from sleep History of Present Illness: The patient is a 42 F who has multiple medical problems which include type 2 diabetes, hypertension hypercholesterolemia. She is a former smoker. She has not smoked in 10 years. Multiple family members with coronary disease early 40s. Patient states last evening before dinner around 1700 she developed chest heaviness tightness with radiation to both shoulders arms associated with shortness of breath. She states she took Tylenol and went to bed early. She is not able to tell me the duration of symptoms. She states it was greater than 30 minutes. She reports she was awakened from sleep with heaviness in her chest radiating to both shoulders down both arms followed by numbness in both arms gasping for breath and diaphoresis. Upon further questioning she has had dyspnea on exertion for the past several weeks. She has had chest tightness at work. She states she did not stop working because she was fearful she may lose her job. 2 weeks ago she developed blurred vision secondary to poor control of diabetes. She also has history of diabetic neuropathy. She reports a 72.8 pound intentional weight loss over the past year. She denies symptoms of claudication. She does report walking to work. She states distance is 5 blocks. She occasionally experiences shortness of breath but no other symptoms. Patient states she does have history anxiety. She thought initially this was secondary to anxiety. When asked what symptoms she has with anxiety she reports palpitations. She also has history of reflux. She states she has not had an episode of reflux in 8 years and her symptoms are different. She does not take an aspirin a day. She has never had a stress test. Physical Examination: Patient's vitals are noted and remarkable for blood pressure 162/102. Head is atraumatic normocephalic. Pupils are equal round reactive. Extraocular muscles are intact. TMs are pearly white with landmarks noted. Nares patent with no drainage. Posterior pharynx without erythema or exudate. Uvula is midline. There is no dysphonia or dysphasia. Trachea is midline. There is no stridor with auscultation of the neck. Heart is regular without murmur, gallop or rub. S1 and S2 are normal. Lungs are clear to auscultation with good movement of air bilaterally. There is no pain the patient of the chest. Abdomen is soft nontender with no palpable cell mass abdominal bruit. She has stigmata of peripheral arterial disease lower extremity with minimal hair and states that she does not shave her legs daily. She shaves every 1-2 weeks. She also has a paucity of hair on her toes. DP PT pulse are diminished. Neuro exam is nonfocal. Test Results: EKG is normal. Ventricular rate 77. [place] interval, QRS duration, QT interval and axis are normal. EKG was obtained without pain. Portable chest x-ray interpreted by me as unremarkable. Blood work is remarkable for glucose of 303. KING risk score 2. Heart score is 2. Emergency Department Course and Treatment: Chest order set was initiated. Need to evaluate for coronary disease versus GI versus pulmonary versus anxiety reaction. With history of diabetes that is poorly controlled neuropathy with stigmata of peripheral arterial disease former smoker family members with coronary disease at young age concern the discomfort that she experienced that awoke her from sleep and dyspnea on exertion is cardiac in etiology. She was treated with aspirin and Nitropaste was applied since she is symptom-free. She was then informed that she will require admission for further testing. Treatment Plan: [place] [id number] further testing. Observation status PCU Disposition: PCU Impression: 1. Chest pain 2. Hyperglycemia in diabetic patient 3. History of hypertension 4. History of hypercholesterolemia This note was generated with [employer] dictation software. It may contain incorrect words, spelling, and punctuation that were not noted in review of the chart prior to signing ED Disposition - Plan for ED Patient: Chief Complaint: Other, Pain/Inj Referrals: Andrez Fischer MD [Primary Care Provider] -
[2018-03-29] MEDS: Nitroglycerin Oint 1 INCH PACKET TRANSDERM. (07:53)
[2018-03-29] MEDS: Aspirin 81 MG TAB.CHEW 324 MG PO (07:53)
--- NOTE | 2018-03-29 07:54 | ED.DCSUM_ITS ---
- ER Visit Summary Date of Service: 03/29/18 Chief Complaint: Selectively triaged himself there appropriately chest heaviness/tightness that awoke patient from sleep History of Present Illness: The patient is a 42 F who has multiple medical problems which include type 2 diabetes, hypertension hypercholesterolemia. She is a former smoker. She has not smoked in 10 years. Multiple family members with coronary disease early 40s. Patient states last evening before dinner around 1700 she developed chest h eaviness tightness with radiation to both shoulders arms associated with shortness of breath. She states she took Tylenol and went to bed early. She is not able to tell me the duration of symptoms. She states it was greater than 30 minutes. She reports she was awakened from sleep with heaviness in her chest radiating to both shoulders down both arms followed by numbness in both arms gasping for breath and diaphoresis. Upon further questioning she has had dyspnea on exertion for the past several weeks. She has had chest tightness at work. She states she did not stop working because she was fearful she may lose her job. 2 weeks ago she developed blurred vision secondary to poor control of diabetes. She also has history of diabetic neuropathy. She reports a 72.8 pound intentional weight loss over the past year. She denies symptoms of claudication. She does report walking to work. She states distance is 5 blocks. She occasionally experiences shortness of breath but no other symptoms. Patient states she does have history anxiety. She thought initially this was secondary to anxiety. When asked what symptoms she has with anxiety she reports palpitations. She also has history of reflux. She states she has not had an episode of reflux in 8 years and her symptoms are different. She does not take an aspirin a day. She has never had a stress test. Physical Examination: Patient's vitals are noted and remarkable for blood pressure 162/102. Head is atraumatic normocephalic. Pupils are equal round reactive. Extraocular muscles are intact. TMs are pearly white with landmarks noted. Nares patent with no drainage. Posterior pharynx without erythema or exudate. Uvula is midline. There is no dysphonia or dysphasia. Trachea is midline. There is no stridor with auscultation of the neck. Heart is regular without murmur, gallop or rub. S1 and S2 are normal. Lungs are clear to auscultation with good movement of air bilaterally. There is no pain the patient of the chest. Abdomen is soft nontender with no palpable cell mass abdominal bruit. She has stigmata of peripheral arterial disease lower extremity with minimal hair and states that she does not shave her legs daily. She shaves every 1-2 weeks. She also has a paucity of hair on her toes. DP PT pulse are diminished. Neuro exam is nonfocal. Test Results: EKG is normal. Ventricular rate 77. NM interval, QRS duration, QT interval and axis are normal. EKG was obtained without pain. Portable chest x-ray interpreted by me as unremarkable. Blood work is remarkable for glucose of 303. KING risk score 2. Heart score is 2. Emergency Department Course and Treatment: Chest order set was initiated. Need to evaluate for coronary disease versus GI versus pulmonary versus anxiety reaction. With history of diabetes that is poorly controlled neuropathy with stigmata of peripheral arterial disease former smoker family members with coronary disease at young age concern the discomfort that she experienced that awoke her from sleep and dyspnea on exertion is cardiac in etiology. She was treated with aspirin and Nitropaste was applied since she is symptom- free. She was then informed that she will require admission for further testing. Treatment Plan: [place] [id number] further testing. Observation status PCU Disposition: PCU Impression: 1. Chest pain 2. Hyperglycemia in diabetic patient 3. History of hypertension 4. History of hypercholesterolemia This note was generated with Tap[employer] dictation software. It may contain incorrect words, spelling, and punctuation that were not noted in review of the chart prior to signing ED Disposition - Plan for ED Patient: Chief Complaint: Other, Pain/Inj Referrals: Andrez Fischer MD [Primary Care Provider] -
[2018-03-29 07:56] LABS: Absolute Lymphocyte Count 1.62 X10^3/ul (0.83-4.51); Absolute Neutrophil Count 4.1 X10^3/uL (2.0-7.7); Basophil# 0.04 X10^3/uL; Basophil% 0.6 % (0-1); Eosinophil# 0.23 X10^3/uL; Eosinophils% 3.6 % (0-5); Hematocrit 43.2 % (37-47); Hemoglobin 13.5 g/dl (12.0-15.0); Lymphocyte # 1.62 X10^3/ul (4.0); Lymphocyte % 25.3 % (19-41); Mean Corp Hgb Conc 31.3 g/gl (32-36); Mean Corpuscular Hgb 27.9 pg (27.0-32.0); Mean Corpuscular Volume 89.3 fL (81-99); Mean Platelet Vol. 11.1 fl (6.2-12.0); Monocyte# 0.37 X10^3/uL; Monocyte% 5.8 % (0-10); Neutrophil # 4.13 X10^3/uL (2.7-7.7); Neutrophil % 64.5 % (47-70); POSITIVE COUNT NO; POSITIVE DIFFERENTIAL NO; POSITIVE MORPHOLOGY NO; Platelet Count 256 K/mm3 (150-450); RBC Distribution Width CV 12.6 % (11.6-14.6); RBC Distribution Width SD 40.7 fl (35.1-43.9); Red Blood Count 4.84 M/mm3 (4.2-5.4); White Blood Count 6.4 K/mm3 (4.4-11.0)
[2018-03-29 08:11] LABS: Anion Gap 9 (5-15); BUN 11 mg/dL (7-18); BUN/Creat Ratio 14.1 RATIO (10-20); Calcium,Total 9.5 mg/dL (8.5-10.1); Chloride 101 mmol/L (98-107); Creatinine, Serum 0.78 mg/dL (0.55-1.02); EST Glomerular Filtration Rate 87 mL/min (>60); Est Glom Filt Rate - Afr Amer 105 mL/min (>60); Estimated Creatinine Clearance 75.83 ml/min; Glucose 303 mg/dL (74-106); Potassium 4.1 mmol/L (3.5-5.1); Sodium Level 136 mmol/L (136-145)
[2018-03-29] MEDS: Insulin Lispro 100 UNIT/ML INSULN.PEN SC (08:37)
--- NOTE | 2018-03-29 08:46 | HP.PCM_ITS ---
Problem List (1) HTN (hypertension) Status: Chronic Qualifiers: Hypertension type: essential hypertension Qualified Code(s): I10 - Essential (primary) hypertension (2) Diabetes Status: Acute Qualifiers: Diabetes mellitus type: type 2 Diabetes mellitus residential insulin use: without superintendent container terminal use Diabetes mellitus complication status: with unspecified complications Qualified Code(s): E11.8 - Type 2 diabetes mellitus with unspecified complications (3) Migraine Status: Chronic Qualifiers: Migraine type: without aura Status migrainosus presence: without status migrainosus (4) GERD (gastroesophageal reflux disease) Status: Chronic History of Present Illness Date of Admission: 03/29/18 Chief Complaint: Chest pain - 1 day The patient is a 42 year old F with PMHx of hypertension, hyperlipidemia, Type 2 DM, morbid obesity who comes in with complaints of chest pain that started 1 day ago. Patient recently had her children ill with upper respiratory infection. She is subsequently began feeling very tired. Went to bed last night and woke up this morning with chest discomfort described as somebody sitting on her chest radiates to her right shoulder and right. Denied any dizziness or shortness of breath or palpitation. Patient denied any bilateral leg extremity edema, orthopnea or PND. She denied any cardiac history. Vitals in ED showed temp 98.1F, HR 84, BP 163/102, RR 18, spo2 98% on RA. Admitting labs are unremarkable. EKG showed no acute ST-T changes. Initial troponin is negative. Chest X-ray is unremarkable for any acute cardiopulmonary process. Past Medical History Past Medical History (Chronic Problems): Chronic Problems HTN (hypertension) (Chronic) Headache (Chronic) Migraine (Chronic) GERD (gastroesophageal reflux disease) (Chronic) Migraine (Chronic) Allergies Penicillins Allergy (Verified 03/29/18 07:25) Hives venom-honey bee [bee venom (honey bee)] Allergy (Verified 03/29/18 07:25) Anaphylaxis Home Medications: Ambulatory Orders Medication Instructions Recorded Insulin Glargine,Hum.rec.anlog 21 unit SQ QHS 11/20/17 [Basaglar Panfiloikpen U-100] Gabapentin 300 mg PO BID PRN PRN 03/29/18 Insulin Regular, Human [Humulin R] 10 unit SC TID 03/29/18 Surgical History: noncontributory, - - Cholecystectomy, ectopic ; tubal ligation. Psychiatric History: No pertinent psych hx THERAPEUTIC SPECIALIST History: No pertinent THERAPEUTIC SPECIALIST history Lives: Spouse/ Significant Other, With Family Smoking Status: Never smoker - *Family History Maternal History Items: Diabetes, Hypertension Paternal History Items: No pertinent history Sibling History Items: No pertinent history Review of Systems Constitutional: Reports: Weakness. Denies: Anorexia, Chills, Fever, Night Sweats, Malaise, Weight Change Eyes: Denies: Blurred vision, Cataracts, Conjunctivae Inflammation, Pain, Redness HEENT: Denies: Difficulty Hearing, Difficulty Swallowing, Head Aches, Hearing Changes, Sinus Congestion, Sinus Drainage, Sore Throat Cardiovascular: Reports: Chest Pain, Chest Tightness. Denies: Claudication, Light Headedness, Orthopnea, Palpitations, Paroxysmal Noc. Dyspnea Respiratory: Reports: Shortness of breath at rest, Shortness of breath upon exertion. Denies: Cough, Hemoptysis, Sputum production Gastrointestinal: Denies: Abdominal Pain, Constipation, Hematemesis, Hematochezia, Nausea, Vomiting Genitourinary: Denies: Dysuria, Frequency, Incontinence Musculoskeletal: Denies: Joint Pain, Joint stiffness, Joint swelling, Joint Tenderness Skin: Denies: Rash, Wounds Neurological: Denies: Difficulty swallowing, Focal weakness, Numbness, Tingling Psychiatric: Denies: Anxiety, Depression, Homicidal Ideations, Suicidal Ideations Hematologic/ Lymphatic: Denies: Easy Bruising, Easy Bleeding VTE Information - Inpt Only VTE Present on Admission: No VTE Pharm Prophylaxis ordered?: Yes - Physical Exam General: Alert, Oriented x3, Cooperative, No apparent distress, - - morbid obesity HEENT: Atraumatic, PERRLA, EOMI, Normocephalic Oral: Moist Mucosa Neck: Supple, No JVD, Negative Carotid Bruits Lungs: Clear to auscultation, Normal air movement Cardiovascular: Regular rate, Regular Rhythm, Normal S1, Normal S2, No murmurs Abdomen: Bowel Sounds Present, Soft, Non Tender, Non-Distended, No Hepato- splenomegaly Extremities: No edema Skin: No rashes, No breakdown Musculoskeletal: No Tenderness to Palpation of Joints or Extremities Lymphatic: No Cervical, Supraclavicular, or Inguinal Adenopathy Neurological: Cranial nerves II-XII grossly intact, Neuro grossly intact Psych/Mental Status: Normal Affect, Appropriate Vital Signs Temp Pulse Resp BP Pulse Ox 98.1 F 77 18 162/104 H 98 03/29/18 07:23 03/29/18 07:53 03/29/18 07:23 03/29/18 07:53 03/29/18 07:23 Oxygen Delivery Method Room Air Weight: 105.233 kg Body Mass Index (BMI) 42.4 Finger Stick Blood Glucose 305 Laboratory Tests Past 24 Hrs 03/29/18 03/29/18 07:43 07:43 WBC 6.4 RBC 4.84 Hgb 13.5 Hct 43.2 MCV 89.3 MCH 27.9 MCHC 31.3 L RDW 12.6 RDW Differential 40.7 Plt Count 256 MPV 11.1 Immature Gran % (Auto) 0.200 Neut % (Auto) 64.5 Lymph % (Auto) 25.3 Archuleta % (Auto) 5.8 Eos % (Auto) 3.6 Baso % (Auto) 0.6 Absolute Neuts (auto) 4.1 Absolute Lymphs (auto) 1.62 Total Counted Not Reportable Sodium 136 Potassium 4.1 Chloride 101 Carbon Dioxide 26.0 Anion Gap 9 BUN 11 Creatinine 0.78 Estim Creat Clear Calc 75.83 Est GFR (MDRD) Af Amer 105 Est GFR (MDRD) Non-Af 87 BUN/Creatinine Ratio 14.1 Glucose 303 H Calcium 9.5 Troponin I < 0.015 Assessment/Plan All Active Problems Diabetes (Acute) Status migrainosus (Acute) 42 year old F with PMHx of hypertension, hyperlipidemia, Type 2 DM, morbid o besity who comes in with complaints of chest pain that started 1 day ago. 1. Acute chest pain, in a patient with multiple risk factors, initial troponin was negative, EKG is unremarkable Plan: Admit to PCU, on telemetry bed, trend troponins, nuclear stress test, 2d- ech hypertension, controlled, o, aspirin 81mg daily, nitro prn 2. Hypertension, controlled, on low-sodium diet, not on medications 3. Hyperlipidemia, not statin, lipid profile in am 4. Type 2 DM, on insulin, will continue same, accuchecs with insulin sliding scale 5. Morbid obesity, BMI 42.4, diet and exercises is recommended. 6. DVT PPx- Lovenox SC Code Visit OBSV E&M: [id number] Initial observation care L3
--- NOTE | 2018-03-29 10:00 | ECHOCS_ITS ---
Reason For Study: CP Procedure This was a 2D Doppler, Color Flow transthoracic echocardiogram. The study was technically difficult. Contrast injection was performed. Exam performed portable in patient room. Left Ventricle Normal LV size. Mild concentric left ventricular hypertrophy. Left ventricular systolic function is normal. The estimated ejection fraction is 60 %. No evidence for diastolic dysfunction. No regional wall motion abnormalities noted. Right Ventricle Normal RV size. Normal systolic function. Atria Normal left atrium. Normal right atrium. No doppler evidence for ASD. Mitral Valve There is no mitral annular calcification. Normal mitral valve. Tricuspid Valve Normal tricuspid valve. Aortic Valve Trisinus/trileaflet aortic valve. Normal aortic valve. Pulmonic Valve The pulmonic valve is not well visualized. Trivial pulmonic valve insufficiency. Great Vessels Normal sized aortic root. Pericardium/Pleural No pericardial effusion. Medication Diluted definity 4ml given slow IV push to enhance endocardial definition. MMode/2D Measurements & Calculations LVIDd: 3.7 cm IVSd: 1.3 cm Ao root diam: 3.3 cm LVIDs: 2.4 cm LVPWd: 1.4 cm FS: 35.7 % LAV(MOD-sp4): 59.4 ml LA A4 area: 19.9 cm2 RA A4 area: 12.6 cm2 Time Measurements MV dec time: 0.27 sec Doppler Measurements & Calculations MV E max mayank: 63.4 cm/sec Lat Peak E' Mayank: 10.6 cm/sec Med Peak E' Mayank: 6.8 cm/sec MV A max mayank: 56.9 cm/sec E/E' lat: 6.0 E/E' med: 9.4 MV E/A: 1.1 MV V2 max: 65.6 cm/sec MV P1/2t max mayank: 65.6 cm/sec Ao V2 max: 121.9 cm/sec MV max P.7 mmHg MV P1/2t: 84.9 msec Ao max P.9 mmHg MV V2 mean: 40.1 cm/sec MV dec slope: 226.3 cm/sec2 Ao V2 mean: 73.9 cm/sec MV mean P.74 mmHg Ao mean P.7 mmHg MV V2 VTI: 18.7 cm MVA(P1/2t): 2.6 cm2 Ao V2 VTI: 22.1 cm LV V1 max: 96.4 cm/sec PA V2 max: 82.8 cm/sec LV V1 max P.7 mmHg LV V1 mean P.9 mmHg LV V1 mean: 62.7 cm/sec LV V1 VTI: 20.5 cm Interpretation Summary The study was technically difficult. Contrast injection was performed. Left ventricular systolic function is normal. The estimated ejection fraction is 60 %. Mild concentric left ventricular hypertrophy. Trivial pulmonic valve insufficiency. No evidence for diastolic dysfunction. Ordering Physician: Edyta Arrington Referring Physician: MD Amado Andrez Performed By: Silvano Dowell RCS
--- NOTE | 2018-03-29 10:05 | EKG12_ITS ---
Test Reason : CP Blood Pressure : / mmHG Vent. Rate : 072 BPM Atrial Rate : 072 BPM P-R Int : 136 ms QRS Dur : 082 ms QT Int : 414 ms P-R-T Axes : 029 014 016 degrees QTc Int : 453 ms Normal sinus rhythm Normal ECG Confirmed by CHAI SANTIAGO, MINA ([id number]), photo editor JOANNE HU ([id number] on 04/01/2018 2:43:02 PM Referred By: PB Confirmed By:MINA PAULA MD
[2018-03-29] MEDS: Acetaminophen 325 MG Tablet 650 MG PO (11:50)
[2018-03-29] MEDS: Ketorolac 30 MG/ML Syringe IV (11:52)
[2018-03-29] MEDS: Insulin Lispro 100 UNIT/ML INSULN.PEN SQ ×3 (12:02→21:27)
[2018-03-29 12:11] LABS: Bedside Glucose 165 mg/dL (70-110)
[2018-03-29] MEDS: Insulin Lispro 100 UNIT/ML INSULN.PEN 10 UNIT SC (16:23)
[2018-03-29] MEDS: oxyCODONE 5 MG Tablet PO (16:34)
[2018-03-29 17:01] LABS: Bedside Glucose 201 mg/dL (70-110)
[2018-03-29] MEDS: 0.9% NaCl Peripheral Flush Adult/Peds IV (19:08)
[2018-03-29] MEDS: 0.9% Normal Saline 1,000 ML 75 ML IV (19:08)
[2018-03-29 23:45] LABS: Bedside Glucose 289 mg/dL (70-110)
[2018-03-30] VITALS (7 sets, daily range): BP systolic 146–156; BP diastolic 93–100; PULSE 72–98; RESP 18; TEMP 36.4–36.6; O2SAT 94–97
[2018-03-30 05:26] LABS: Absolute Lymphocyte Count 0.65 X10^3/ul (0.83-4.51); Absolute Neutrophil Count 6.3 X10^3/uL (2.0-7.7); Basophil# 0.01 X10^3/uL; Basophil% 0.1 % (0-1); Eosinophil# 0.01 X10^3/uL; Eosinophils% 0.1 % (0-5); Hemoglobin 14.1 g/dl (12.0-15.0); Lymphocyte # 0.65 X10^3/ul (4.0); Lymphocyte % 9.2 % (19-41); Mean Corpuscular Hgb 27.9 pg (27.0-32.0); Mean Platelet Vol. 11.2 fl (6.2-12.0); Monocyte# 0.05 X10^3/uL; Monocyte% 0.7 % (0-10); Neutrophil # 6.32 X10^3/uL (2.7-7.7); Neutrophil % 89.8 % (47-70); Platelet Count 278 K/mm3 (150-450); RBC Distribution Width CV 12.5 % (11.6-14.6); RBC Distribution Width SD 39.2 fl (35.1-43.9); Red Blood Count 5.06 M/mm3 (4.2-5.4); White Blood Count 7.1 K/mm3 (4.4-11.0)
[2018-03-30 05:38] LABS: Partial Thromboplast Time 25.8 Seconds (24.1-36.2); Prothrombin Time (Protime)PT. 13.4 SECONDS (11.7-14.9)
[2018-03-30 05:40] LABS: POSITIVE COUNT NO; POSITIVE DIFFERENTIAL NO; POSITIVE MORPHOLOGY NO
[2018-03-30 05:47] LABS: Anion Gap 9 (5-15); BUN 17 mg/dL (7-18); BUN/Creat Ratio 17.8 RATIO (10-20); Chloride 102 mmol/L (98-107); Cholesterol 245 mg/dL (200); Creatinine, Serum 0.95 mg/dL (0.55-1.02); EST Glomerular Filtration Rate 69 mL/min (>60); Est Glom Filt Rate - Afr Amer 83 mL/min (>60); Estimated Creatinine Clearance 62.26 ml/min; Glucose 372 mg/dL (74-106); High Density Lipoprotein 52 mg/dL; Potassium 4.7 mmol/L (3.5-5.1); Sodium Level 135 mmol/L (136-145); Triglycerides 107 mg/dL; Very Low Density Lipoprotein 21 mg/dL (5-40)
--- NOTE | 2018-03-30 05:55 | EKG12_ITS ---
Test Reason : AM Blood Pressure : / mmHG Vent. Rate : 081 BPM Atrial Rate : 081 BPM P-R Int : 140 ms QRS Dur : 084 ms QT Int : 404 ms P-R-T Axes : 030 009 029 degrees QTc Int : 469 ms Normal sinus rhythm Poor R wave progression Confirmed by CHAI SANTIAGO, MINA ([id number]), brands editor JOANNE HU ([id number] on 04/01/2018 2:39:29 PM Referred By: PB Confirmed By:MINA PAULA MD
[2018-03-30] MEDS: Aspirin E.C. 81 MG Tablet PO (06:24)
[2018-03-30 07:05] LABS: Bedside Glucose 346 mg/dL (70-110)
[2018-03-30 08:20] LABS: BNP,B-Type NATRIURETIC PEPTIDE 32.8 pg/mL (0-100)
--- NOTE | 2018-03-30 08:38 | NURSING ---
Pt back from stress test, tolerated well. Pt request BS be rechecked, BS [phone] with recheck. at bedside.
[2018-03-30] MEDS: Insulin Lispro 100 UNIT/ML INSULN.PEN SQ (08:43)
[2018-03-30 08:51] LABS: Bedside Glucose 313 mg/dL (70-110)
[2018-03-30 10:21] LABS: Hemoglobin A1c 11.4 % (4.2-6.3)
--- NOTE | 2018-03-30 10:33 | STRESSREP ---
Stress Test Report Exercise myocardial perfusion stress test. 42-year-old lady with a history of chest pain. Medications: Aspirin Lovenox. Stress protocol. Resting EKG demonstrates normal sinus rhythm with a rate of 83 bpm normal intervals are noted resting blood pressure 148/88 mmHg. The patient exercised according to regular Obey protocol for total duration of 6 minutes and 45 seconds the maximum heart rate attained was 162 bpm which was 90% of maximum predicted heart rate the maximum workload was 8.1 metabolic equivalents. Patient maintained sinus rhythm throughout the recording. At rest there were no ST or T wave changes noted suggest ischemia at peak exercise upsloping ST changes only were noted with normally the criteria for ischemia. No clinical angina was noted. The resting blood pressure 148/88 with a peak blood pressure 154/90 mmHg rate pressure product was 23,800. Myocardial perfusion protocol. 14.7 mCi of technetium 99m sestamibi was injected at rest. The patient exercised according to regular Obey protocol for 6 minutes and 45 seconds attaining 90% of maximum predicted heart rate and a workload of 8.1 metabolic equivalents at peak exercise 44.9 mCi of technetium 99m sestamibi was injected stress images were obtained stress and rest images were reconstructed and compared in the short axis vertical and horizontal long axis. Gated images were also obtained per Perfusion SPECT analysis: Review of the stress images demonstrate normal uptake of tracer noted in all areas of myocardium. The resting images similarly demonstrate normal uptake of tracer noted in all areas of myocardium. No areas of reversibility are noted suggest ischemia and no previous infarct is noted. Gated SPECT analysis: The gated ejection fraction is noted to be 68%. Conclusion: Normal exercise myocardial perfusion stress test at a moderate workload. Preserved ejection fraction.
[2018-03-30] MEDS: SUMAtriptan 6 MG/0.5 ML Vial SC (11:00)
--- NOTE | 2018-03-30 11:08 | DCINST_ITS ---
- Discharge Diagnoses Reason(s) for Visit for Discharge Instructions: Chest pain You will use the following diet at home:: Calorie/Carbohydrate Controlled (specify 1200, 1400, etc), Cardiac Your food should be the consistency of: Regular Your liquids should be the consistency of: Regular/Thin Discharge Activity: Return to Normal Activity Additional Instructions: Continue to take all your medications as prescribed. Your blood sugar has been high and your Lantus has been increased to 25 units every evening. Continue to check your blood sugars before meals. Your cholesterol levels are uncontrolled, you have been started on a cholesterol pill. Follow-up with your primary care doctor within 1-2 weeks. Allergies/Adverse Reactions: Allergies Penicillins Allergy (Verified 03/29/18 07:25) Hives venom-honey bee [bee venom (honey bee)] Allergy (Verified 03/29/18 07:25) Anaphylaxis Medications to take at Discharge Gabapentin 300 mg PO BID PRN PRN 03/29/18 Insulin Regular, Human [Humulin R] 10 unit SC TID 03/29/18 Atorvastatin Calcium 40 mg PO DAILY #30 tablet 03/30/18 Insulin Glargine,Hum.rec.anlog [Basaglar Kwikpen U-100] 25 unit SQ QHS #0 03/30/18 The following prescriptions were given: Atorvastatin Calcium 40 mg PO DAILY #30 tablet Primary Care Physician: Andrez Fischer MD [Primary Care Provider] - Please follow up with your Primary Care Physician in: within 2 weeks Test Results: Test results from this visit will be discussed in further detail at your follow- up appointment, if applicable. Proposed Discharge Date: 03/30/18
--- NOTE | 2018-03-30 11:08 | PCM.DC.SUM ---
Discharge Date and Diagnosis Date of Admission: 03/29/18 Date of Discharge: 03/30/18 - Primary Discharge Diagnosis Chest pain Uncontrolled type 2 DM, insulin dependent Uncontrolled hyperlipidemia Morbid obesity - Secondary Discharge Diagnosis Chronic Problems HTN (hypertension) (Chronic) Headache (Chronic) Migraine (Chronic) GERD (gastroesophageal reflux disease) (Chronic) Migraine (Chronic) Hospital Course and Treatment Imaging Results: 03/30/18 05:55 Nuclear Stress Test - Treadmil [NM] Routine Clinical Impression(s) from Imaging Studies Chest X-Ray 03/29/18 07:37 IMPRESSION: Normal x-ray examination of the chest. Electronically Signed: Jose Luis Aviles DO at 8:11 EST Tel , Service support , None Operations: None Procedures: 2-D Echocardiogram, Stress test Summary of Care Provided: 42 year old F with PMHx of hypertension, hyperlipidemia, Type 2 DM, morbid obesity who comes in with complaints of chest pain that started 1 day ago. Her initial EKG was unremarkable. Troponins were negative. She was admitted to a telemetry bed, no acute events were observed except for complaint of headache which improved with IV decadron and recurred again. She was later given Imitrex with relief. 2d-ECHO was negative. She underwent stress test that was negative. Her BS were uncontrolled. Changes were made to her home insulin regimen. Her lipid profile was uncontrolled and she was started on statins. Subjective: Patient was seen and examined. Denies chest pain, dizziness, palpitations. Complained of headache, improved with Imitrex SC. Objective: Physical Exam General: Alert, Oriented x3, Cooperative, No apparent distress, morbid obesity HEENT: Atraumatic, PERRLA, EOMI, Normocephalic Oral: Moist Mucosa Neck: Supple, No JVD, Negative Carotid Bruits Lungs: Clear to auscultation, Normal air movement Cardiovascular: Regular rate, Regular Rhythm, Normal S1, Normal S2, No murmurs Abdomen: Bowel Sounds Present, Soft, Non Tender, Non-Distended, No Hepato-splenomegaly Extremities: No edema Skin: No rashes, No breakdown Musculoskeletal: No Tenderness to Palpation of Joints or Extremities Lymphatic: No Cervical, Supraclavicular, or Inguinal Adenopathy Neurological: Cranial nerves II-XII grossly intact, Neuro grossly intact Psych/Mental Status: Normal Affect, Appropriate - Physical Exam Vital Signs Temp Pulse Resp BP Pulse Ox 97.6 F L 98 18 156/100 H 96 03/30/18 06:23 03/30/18 10:37 03/30/18 06:23 03/30/18 06:23 03/30/18 08:51 Oxygen Delivery Method Room Air Weight: 105.233 kg Body Mass Index (BMI) 42.4 Finger Stick Blood Glucose 305 Intake and Output for Last 24 Hours 03/28/18 03/29/18 03/30/18 23:59 23:59 23:59 Intake Total 1071 / 1071 Balance 1071 / 1071 Laboratory Tests Past 24 Hrs 03/29/18 03/29/18 03/30/18 10:46 13:55 05:05 WBC RBC Hgb Hct MCV MCH MCHC RDW RDW Differential Plt Count MPV Immature Gran % (Auto) Neut % (Auto) Lymph % (Auto) Sebastian % (Auto) Eos % (Auto) Baso % (Auto) Absolute Neuts (auto) Absolute Lymphs (auto) Total Counted PT INR APTT Sodium 135 L Potassium 4.7 Chloride 102 Carbon Dioxide 24.0 Anion Gap 9 BUN 17 Creatinine 0.95 Estim Creat Clear Calc 62.26 Est GFR (MDRD) Af Amer 83 Est GFR (MDRD) Non-Af 69 BUN/Creatinine Ratio 17.8 Glucose 372 H Hemoglobin A1c Calcium 9.0 Troponin I < 0.015 < 0.015 B-Natriuretic Peptide Triglycerides 107 Cholesterol 245 H LDL Cholesterol 172 H VLDL Cholesterol 21 HDL Cholesterol 52 03/30/18 03/30/18 03/30/18 05:05 05:05 05:05 WBC 7.1 RBC 5.06 Hgb 14.1 Hct 44.0 MCV 87.0 MCH 27.9 MCHC 32.0 RDW 12.5 RDW Differential 39.2 Plt Count 278 MPV 11.2 Immature Gran % (Auto) 0.100 Neut % (Auto) 89.8 H Lymph % (Auto) 9.2 L Sebastian % (Auto) 0.7 Eos % (Auto) 0.1 Baso % (Auto) 0.1 Absolute Neuts (auto) 6.3 Absolute Lymphs (auto) 0.65 L Total Counted Not Reportable PT 13.4 INR 1.0 APTT 25.8 Sodium Potassium Chloride Carbon Dioxide Anion Gap BUN Creatinine Estim Creat Clear Calc Est GFR (MDRD) Af Amer Est GFR (MDRD) Non-Af BUN/Creatinine Ratio Glucose Hemoglobin A1c Calcium Troponin I B-Natriuretic Peptide 32.8 Triglycerides Cholesterol LDL Cholesterol VLDL Cholesterol HDL Cholesterol 03/30/18 05:05 WBC RBC Hgb Hct MCV MCH MCHC RDW RDW Differential Plt Count MPV Immature Gran % (Auto) Neut % (Auto) Lymph % (Auto) Sebastian % (Auto) Eos % (Auto) Baso % (Auto) Absolute Neuts (auto) Absolute Lymphs (auto) Total Counted PT INR APTT Sodium Potassium Chloride Carbon Dioxide Anion Gap BUN Creatinine Estim Creat Clear Calc Est GFR (MDRD) Af Amer Est GFR (MDRD) Non-Af BUN/Creatinine Ratio Glucose Hemoglobin A1c 11.4 H Calcium Troponin I B-Natriuretic Peptide Triglycerides Cholesterol LDL Cholesterol VLDL Cholesterol HDL Cholesterol POC Glucose 03/30/18 03/30/18 03/29/18 08:37 06:27 21:24 POC Glucose 313 H 346 H 289 H 03/29/18 03/29/18 16:22 11:59 POC Glucose 201 H 165 H Discharge Diet: Low fat/ Low Cholesterol, 2000 mg Sodium Diet, Carb Control Diet Discharge Activity: Return to Normal Activity Home Medications: Medications to take at Discharge Gabapentin 300 mg PO BID PRN PRN 03/29/18 Insulin Regular, Human [Humulin R] 10 unit SC TID 03/29/18 Atorvastatin Calcium 40 mg PO DAILY #30 tablet 03/30/18 Insulin Glargine,Hum.rec.anlog [Basaglar Kwikpen U-100] 25 unit SQ QHS #0 03/30/18 Following Prescrptions Were Given to Patient: Atorvastatin Calcium 40 mg PO DAILY #30 tablet Primary Care Physician: Andrez Fischer MD [Primary Care Provider] - Please follow up with your Primary Care Physician in: within 2 weeks Disposition: Home Minutes spent on discharge:: 40 Patient Condition:: Stable Medical Necessity - Tobacco Use Smoking Status: Never smoker Tobacco Use: Non-smoker Meaningful Use Info Meaningful Use Diagnoses (Choose all that apply): None applicable Code Visit Inpatient E&M: 15365 Subs Hosp L2
[2018-03-30 11:36] LABS: Bedside Glucose 275 mg/dL (70-110)
--- OUTSIDE RECORDS SUMMARY | 2018-05-31 07:59 | XMS RPT_ITS ---
:1975 Author Organization OHIP Care Team Providers Name Role Phone DANAY MENDOZA (EYELET CUTTER) Attending Unavailable KUSHAL FORD (EYELET CUTTER) Referring Unavailable KUSHAL FORD (EYELET CUTTER) Attending Unavailable MOON HORTA Referring Unavailable KUSHAL FORD (EYELET CUTTER) Referring Unavailable Moon Horta Primary Care Unavailable Paintsil, Somers Admitting Unavailable Paintsil, Somers Attending Unavailable Paintsil, Somers Admitting Unavailable Paintsil, Somers Attending Unavailable Elderbrock, Moon Primary Care Unavailable Paintsil, Somers Consulting Unavailable Amado, Moon Primary Care Unavailable Agyepong, Rajendra Admitting Unavailable Destini Abdul Consulting Unavailable Evelia Yanez Attending Unavailable Agyepong, Rajendra Admitting Unavailable Agyepong, Rajendra Attending Unavailable Amado, Moon Primary Care Unavailable Agyepong, Rajendra Consulting Unavailable Desirae Mora NP-C Attending Unavailable Paintsil, Somers Admitting Unavailable Paintsil, Somers Attending Unavailable Elderbrock, Moon Primary Care Unavailable Paintsil, Somers Consulting Unavailable Elderbrock, Moon Primary Care Unavailable Bee Bryson Attending Unavailable PROBLEMS PROBLEMS DATE TYPE CONDITION / CODE ATTENDING STATUS SOURCE 02/12/2018 Unknown M54.30 - Sciatica, Bee Bryson Active [place] unspecified side / Community M54.30(ICD-10) Hospital Repository 07/15/2015 Active Essential (primary) NA Active [facility] hypertension / [facility] Main I10(ICD-10) [place] Repository 11/25/2017 Active Type 2 diabetes NA Active [facility] mellitus with [facility] Main diabetic [place] polyneuropathy / Repository E11.42(ICD-10) 11/25/2017 Active 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 NA Active [facility] (current) drug [facility] therapy / [place] Z79.899(ICD-10) Repository 07/15/2015 Active Type 2 diabetes NA Active [facility] mellitus without [facility] Main complications / [place] E11.9(ICD-10) Repository 08/05/2017 Active Type 2 diabetes NA Active [facility] mellitus with [facility] Main diabetic neuropathy, [place] unspecified / Repository E11.40(ICD-10) 08/05/2017 Active snf (current) NA Active [facility] use of insulin / Clinic Main Z79.4(ICD-10) [place] Repository 08/05/2017 Active Encounter for NA [facility] screening for lipoid [facility] disorders / [place] Z13.220(ICD-10) Repository 08/05/2017 Active Vitamin D NA Active [facility] deficiency, Clinic Main unspecified / [place] E55.9(ICD-10) Repository PROCEDURES PROCEDURES No Procedure Records FoundRESULTS RESULTS PROGRESS Observed: 03/31/2018 Status: COMPLETED Source: [place] 3:38 PM [facility] REPOSITORY HNO ID: [id number] Author: Moon Horta Service: (none) Author Type: Physician Type: Progress Notes Filed: 03/31/2018 3:39 PM Note Text: Noted Moon Horta MD PROGRESS Observed: 03/31/2018 Status: COMPLETED Source: [place] 9:40 AM [facility] REPOSITORY HNO ID: [id number] Author: Britt Field Ma Service: (none) Author Type: (none) Type: Progress Notes Filed: 03/31/2018 3:39 PM Note Text: TRANSITION CARE MANAGEMENT (TCM) INITIAL CONTACT 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 Stated that she had the chest heaviness and tightness with pain that radiated into both arms with SOB the night before. Admitted to dyspnea with exertion for past several weeks and some chest tightness at work. Denied any dizziness, or palpitations, no leg swelling, orthopnea or PND. No past cardiac issues. EKG normal. CXR unremarkable, blood work unremarkable except of glucose of 303. Pt was treated with aspirin and nitropaste was applies since pt was symptom-free. Pt was admitted for further testing and observation. Has ECHO done and stress test. Pt was discharged on 03/30/18 with no restrictions. Spoke with pt and she stated that they increased the Novolog to 7 units TID with meals but she has been taking 10 units in the AM, and 7 units with lunch and dinner as her fasting sugar is around 300-400. She was also told to take 25 units at night of Basaglar, but pt has been taking 40 units at night due to morning sugar readings being 300-400. She stated she was also put back on Lipitor 40 mg daily. She also stated that there have been a lot of medications that she should be taking but her pharmacy that mails these have not been sending them to her any longer and is unsure why. Initial contact with patient post discharge, spoke to patient on 03/31/18 Patient identified by name and . TRANSITION CARE MANAGEMENT INITIAL OUTREACH DOCUMENTATION: Date of Outreach: 03/31/2018 Outreach Attempt 1: Contact Made Date of Discharge 03/30/2018 Some recent data might be hidden SUMMARY: -Pt discharged from [facility] on 03/30/18. -Admitted for: Chest pain Do you have a hospital follow up appointment with your PCP? Appointment on 04/05/18 with PCP. Yes. Remind patient of appointment date, time, and location. If not within 14 calendar days of discharge - please reschedule accordingly. MEDICATIONS: Many patients have questions or concerns about their medications once they are home. Were you prescribed any new medications? If yes, what are those medications? Pt stated they increase the insulins, but she states she has been taking Novolog 20 units in the morning and 10 units with lunch and dinner, Basaglar is taking 40 units at bedtime Was placed back on Lipitor 40 mg daily Were you told to hold any medications? No Were any of your medications discontinued? No Do you have any questions about getting or taking your medications? No Your discharge instructions/After visit Summary (AVS) are important in guiding you through the recovery process. Is there anything I might help you understand? No Do you have all the necessary equipment and supplies at home? 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 Stated that she had the chest heaviness and tightness with pain that radiated into both arms with SOB the night before. Admitted to dyspnea with exertion for past several weeks and some chest tightness at work. Denied any dizziness, or palpitations, no leg swelling, orthopnea or PND. No past cardiac issues. EKG normal. CXR unremarkable, blood work unremarkable except of glucose of 303. Pt was treated with aspirin and nitropaste was applies since pt was symptom-free. Pt was admitted for further testing and observation. Has ECHO done and stress test. Pt was discharged on 03/30/18 with no restrictions. Spoke with pt and she stated that they increased the Novolog to 7 units TID with meals but she has been taking 10 units in the AM, and 7 units with lunch and dinner as her fasting sugar is around 300-400. She was also told to take 25 units at night of Basaglar, but pt has been taking 40 units at night due to morning sugar readings being 300-400. She stated she was also put back on Lipitor 40 mg daily. She also stated that there have been a lot of medications that she should be taking but her pharmacy that mails these have not been sending them to her any longer and is unsure why. Initial contact with patient post discharge, spoke to patient on 03/31/18 Patient identified by name and . TRANSITION CARE MANAGEMENT INITIAL OUTREACH DOCUMENTATION: Date of Outreach: 03/31/2018 Outreach Attempt 1: Contact Made Date of Discharge 03/30/2018 Some recent data might be hidden SUMMARY: -Pt discharged from [facility] on 03/30/18. -Admitted for: Chest pain Do you have a hospital follow up appointment with your PCP? Appointment on 04/05/18 with PCP. Yes. Remind patient of appointment date, time, and location. If not within 14 calendar days of discharge - please reschedule accordingly. MEDICATIONS: Many patients have questions or concerns about their medications once they are home. Were you prescribed any new medications? If yes, what are those medications? Pt stated they increase the insulins, but she states she has been taking Novolog 20 units in the morning and 10 units with lunch and dinner, Basaglar is taking 40 units at bedtime Was placed back on Lipitor 40 mg daily Were you told to hold any medications? No Were any of your medications discontinued? No Do you have any questions about getting or taking your medications? No Your discharge instructions/After visit Summary (AVS) are important in guiding you through the recovery process. Is there anything I might help you understand? No Do you have all the necessary equipment and supplies at home? Yes Medical records from recent hospitalization: Placed for provider to review Moon Horta MD 03/31/2018 3:39 PM Signed Noted Moon Horta MD Allergies As of Date: 03/31/2018 Noted Allergy Reaction PENICILLINS 10/28/2005 10 - Anaphylaxis PREDNISONE 10/13/2013 11 - Vomiting Comments: GI upset VICODIN (HYDROCODONE-ACETAMINOPHE*08/09/2017 8 - GI Upset Date Reviewed: 03/10/2018 Reviewed by: Lakshmi Palmer) SUZETTE Hurtado - Fully Assessed Reason for Visit: Transition Of Care [4074] Prescriptions as of 03/31/2018 Sig: INSULIN ASPART U-100 100 UNI* Inject 7 Units subcutaneously* ATORVASTATIN 40 MG TABLET Take 1 tablet by mouth once d* GABAPENTIN 300 MG CAPSULE Take 1 capsule by mouth three* INSULIN GLARGINE (U-100) 100 * Inject 21 Units subcutaneousl* BLOOD SUGAR DIAGNOSTIC STRIPS Test blood sugar(s) 4 times d* VICTOZA 3-ASAEL 0.6 MG/0.1 ML (* INJECT 1.8MG UNDER THE SKIN O* DICYCLOMINE 10 MG CAPSULE TAKE ONE CAPSULE BY MOUTH BEF* CHOLECALCIFEROL (VITAMIN D3) * Take 1 capsule by mouth once * GLIMEPIRIDE 4 MG TABLET TAKE TWO TABLETS BY MOUTH ONC* ACETAMINOPHEN ER 650 MG TABLE* Take 1 tablet by mouth every * PEN NEEDLE, DIABETIC 31 GAUGE* Use as directed once daily wi* LANCETS Test blood sugar(s) 3- 4 times* BLOOD SUGAR DIAGNOSTIC STRIPS Test blood sugar(s) 3- 4 times* METFORMIN 1,000 MG TABLET TAKE 1 TABLET BY MOUTH TWICE * LISINOPRIL 10 MG-HYDROCHLOROT* TAKE ONE TABLET BY MOUTH EVER* ETODOLAC 400 MG TABLET TAKE ONE TABLET BY MOUTH 2 TI* BLOOD SUGAR DIAGNOSTIC STRIPS Test blood sugar(s) 2x daily.* OMEPRAZOLE 40 MG CAPSULE,IRASEMA* TAKE ONE CAPSULE BY MOUTH SAMIA* CYANOCOBALAMIN (VIT B-12) 1,0* Take 1 tablet by mouth once d* CALCIUM CARBONATE 333 MG-MAGN* Take 1 tablet by mouth once d* COMPOUNDED PRESCRIPTION OTC B12 100 mcg daily COMPOUNDED PRESCRIPTION OTC Calcium, magnesium , zinc* COMPOUNDED PRESCRIPTION OTC Tylenol for arthritis - 6* LEVONORGESTREL 20 MCG/24 HR (* Inserted in office IRON ORAL Take by mouth. COMPOUNDED PRESCRIPTION KNEE HIGH COMPRESSION STOCKIN* LANCETS 28 GAUGE Test blood sugar(s) 2x daily.* Problem List As Of Date 03/31/2018 Noted Resolved COMMON MIGRAINE W/O MENTN INTRACT [G43.009] BIPOLAR DISORDER NOS [F31.9] Knee pain, acute [M25.569] INVALID FOR* More... Morbid obesity with BMI of 40.0-44.9, adult (HC*INVALID FOR* More... PTSD (post-traumatic stress disorder) [F43.10] INVALID FOR* Type 2 diabetes mellitus without complication (*INVALID FOR* Essential hypertension with goal blood pressure*INVALID FOR* Encounter Status:Closed by MOON HORTA MD on 03/31/18 12 LEAD ELECTROCARDIOGRAM Observed: 03/30/2018 Status: F Source: [place] 1:39 PM [facility] [place] [facility] Cardiovascular Services [address] [place] [id number] 12 Lead EKG 03/29/18 0745 MR#: [id number] Acct: [id number] Name: DESIREE SMALL Rep #: [id number] : 1975 42 From: Walter Paula MD Attending Dr: Edyta Arrington MD Status: DIS KATHI Ordering Dr: Lucius Cowan MD Date: 03/29/18 Location: [facility] Sex: F C Admitted: 03/29/18 Test Reason : FR Blood Pressure : / mmHG Vent. Rate : 077 BPM Atrial Rate : 077 BPM P-R Int : 134 ms QRS Dur : 086 ms QT Int : 382 ms P-R-T Axes : 029 008 018 degrees QTc Int : 432 ms Normal sinus rhythm Poor R wave progression Confirmed by WALTER PAULA MD ([id number]), design editor JOANNE HU ([id number]) on 03/30/2018 1:39:01 PM Referred By: EFRA Confirmed By:WALTER PAULA MD 03/30/18 1339 Date Walter Paula MD CC: Edyta Arrington MD; Moon Horta MD; Lucius Cowan MD Signed DISCHARGE SUMMARY Observed: 03/30/2018 Status: F Source: [place] 1:33 PM [facility] [place] [facility] Medical Records Department [address] [place] [address] Discharge Summary 03/30/18 1108 MR#: [id number] Acct: [id number] Name: DESIREE SMALL Rep #: [id number] : 1975 42 From: Edyta Arrington MD PCP: Moon Horta MD Status: DIS KATHI Y Location: [place] [address] Discharge Date and Diagnosis Date of Admission: 03/29/18 Date of Discharge: 03/30/18 - Primary Discharge Diagnosis Chest pain Uncontrolled type 2 DM, insulin dependent Uncontrolled hyperlipidemia Morbid obesity - Secondary Discharge Diagnosis Chronic Problems HTN (hypertension) (Chronic) Headache (Chronic) Migraine (Chronic) GERD (gastroesophageal reflux disease) (Chronic) Migraine (Chronic) Hospital Course and Treatment Imaging Results: 03/30/18 05:55 Nuclear Stress Test - Treadmil [NM] Routine Clinical Impression(s) from Imaging Studies Chest X-Ray 03/29/18 07:37 IMPRESSION: Normal x-ray examination of the chest. Electronically Signed: Jose Luis Aviles DO at 8:11 EST Tel , Service support , None Operations: None Procedures: 2-D Echocardiogram, Stress test Summary of Care Provided: 42 year old F with PMHx of hypertension, hyperlipidemia, Type 2 DM, morbid obesity who comes in with complaints of chest pain that started 1 day ago. Her initial EKG was unremarkable. Troponins were negative. She was admitted to a telemetry bed, no acute events were observed except for complaint of headache which improved with IV decadron and recurred again. She was later given Imitrex with relief. 2d-ECHO was negative. She underwent stress test that was negative. Her BS were uncontrolled. Changes were made to her home insulin regimen. Her lipid profile was uncontrolled and she was started on statins. Subjective: Patient was seen and examined. Denies chest pain, dizziness, palpitations. Complained of headache, improved with Imitrex SC. Objective: Physical Exam General: Alert, Oriented x3, Cooperative, No apparent distress, morbid obesity HEENT: Atraumatic, PERRLA, EOMI, Normocephalic Oral: Moist Mucosa Neck: Supple, No JVD, Negative Carotid Bruits Lungs: Clear to auscultation, Normal air movement Cardiovascular: Regular rate, Regular Rhythm, Normal S1, Normal S2, No murmurs Abdomen: Bowel Sounds Present, Soft, Non Tender, Non-Distended, No Hepato-splenomegaly Extremities: No edema Skin: No rashes, No breakdown Musculoskeletal: No Tenderness to Palpation of Joints or Extremities Lymphatic: No Cervical, Supraclavicular, or Inguinal Adenopathy Neurological: Cranial nerves II-XII grossly intact, Neuro grossly intact Psych/Mental Status: Normal Affect, Appropriate - Physical Exam Vital Signs Temp Pulse Resp BP Pulse Ox 97.6 F L 98 18 156/100 H 96 03/30/18 06:23 03/30/18 10:37 03/30/18 06:23 03/30/18 06:23 03/30/18 08:51 Oxygen Delivery Method Room Air Weight: 105.233 kg Body Mass Index (BMI) 42.4 Finger Stick Blood Glucose 305 Intake and Output for Last 24 Hours Intake Total 1071 / 1071 Balance 1071 / 1071 Laboratory Tests Past 24 Hrs WBC RBC Hgb Hct WBC 7.1 RBC 5.06 Hgb 14.1 Hct 44.0 MCV 87.0 MCH 27.9 WBC RBC Hgb Hct MCV MCH MCHC RDW RDW Differential POC Glucose POC Glucose 313 H 346 H 289 H POC Glucose 201 H 165 H Discharge Diet: Low fat/ Low Cholesterol, 2000 mg Sodium Diet, Carb Control Diet Discharge Activity: Return to Normal Activity Home Medications: Medications to take at Discharge Gabapentin 300 mg PO BID PRN PRN 03/29/18 Insulin Regular, Human [Humulin R] 10 unit SC TID 03/29/18 Atorvastatin Calcium 40 mg PO DAILY #30 tablet 03/30/18 Insulin Glargine,Hum.rec.anlog [Hannahaglyoan Aquino U-100] 25 unit SQ QHS #0 03/30/18 Following Prescrptions Were Given to Patient: Atorvastatin Calcium 40 mg PO DAILY #30 tablet Primary Care Physician: Moon Horta MD [Primary Care Provider] - Please follow up with your Primary Care Physician in: within 2 weeks Disposition: Home Minutes spent on discharge:: 40 Patient Condition:: Stable Medical Necessity - Tobacco Use Smoking Status: Never smoker Tobacco Use: Non-smoker Meaningful Use Info Meaningful Use Diagnoses (Choose all that apply): None applicable Code Visit Inpatient E AND M: 64694 Subs Hosp L2 03/30/18 1333 <Electronically signed by Edyta Arrington MD> Date Edyta Arrington MD Cosigner Signature (if applicable): Date CC: Edyta Arrington MD; Moon Horta MD Signed BEDSIDE GLUCOSE Collected: 03/30/2018 Status: F Source: [place] 11:21 [facility] [place] TYPE CODE TESTS RESULT OUT OF REFERENCE UNITS RANGE LAB L501.080 70-110 mg/dL High BEDSIDE GLU 275 Result Comment: MANAGEMENT OF PATIENT CARE PER NURSING PROTOCOL Performed By: #### L501.080 #### [facility] Laboratory Point of Care [address] [facility] [place] [address] DISCHARGE INSTRUCTION Observed: 03/30/2018 Status: F Source: [place] 11:08 [facility] [place] [facility] [facility] Medical Records Department [address] [place] [address] Instructions for Home/Discharge Instructions 03/30/18 1101 MR#: [id number] Acct: [id number] Name: DESIREE SMALL Melodie Rep #: [id number] : 1975 42 From: Edyta Arrington MD PCP: Moon Horta MD Status: ADM KATHI - Discharge Diagnoses Reason(s) for Visit for Discharge Instructions: Chest pain You will use the following diet at home:: Calorie/Carbohydrate Controlled (specify 1200, 1400, etc), Cardiac Your food should be the consistency of: Regular Your liquids should be the consistency of: Regular/Thin Discharge Activity: Return to Normal Activity Additional Instructions: Continue to take all your medications as prescribed. Your blood sugar has been high and your Lantus has been increased to 25 units every evening. Continue to check your blood sugars before meals. Your cholesterol levels are uncontrolled, you have been started on a cholesterol pill. Follow-up with your primary care doctor within 1-2 weeks. Allergies/Adverse Reactions: Allergies Penicillins Allergy (Verified 03/29/18 07:25) Hives venom-honey bee [bee venom (honey bee)] Allergy (Verified 03/29/18 07:25) Anaphylaxis Medications to take at Discharge Gabapentin 300 mg PO BID PRN PRN 03/29/18 Insulin Regular, Human [Humulin R] 10 unit SC TID 03/29/18 Atorvastatin Calcium 40 mg PO DAILY #30 tablet 03/30/18 Insulin Glargine,Hum.rec.anlog [Basaglar Kwikpen U-100] 25 unit SQ QHS #0 03/30/18 The following prescriptions were given: Atorvastatin Calcium 40 mg PO DAILY #30 tablet Primary Care Physician: Moon Horta MD [Primary Care Provider] - Please follow up with your Primary Care Physician in: within 2 weeks Test Results: Test results from this visit will be discussed in further detail at your follow-up appointment, if applicable. Proposed Discharge Date: 03/30/18 03/30/18 1108 <Electronically signed by Edyta Arrington MD> Date Edyta Arrington MD CC: Moon Horta MD Signed STRESS REPORT Observed: 03/30/2018 Status: F Source: [place] 10:36 AM [facility] [place] [facility] Cardiovascular Services [address] [place] [address] MR#: [id number] Acct: [id number] Name: DESIREE SMALL Rep #: [id number] : 1975 42 From: Sergo Rocha MD Primary Care: Moon Horta MD Status: ADM KATHI Ordering Dr: Sex: F C Stress Test Report Exercise myocardial perfusion stress test. 42-year-old lady with a history of chest pain. Medications: Aspirin Lovenox. Stress protocol. Resting EKG demonstrates normal sinus rhythm with a rate of 83 bpm normal intervals are noted resting blood pressure 148/88 mmHg. The patient exercised according to regular Obey protocol for total duration of 6 minutes and 45 seconds the maximum heart rate attained was 162 bpm which was 90% of maximum predicted heart rate the maximum workload was 8.1 metabolic equivalents. Patient maintained sinus rhythm throughout the recording. At rest there were no ST or T wave changes noted suggest ischemia at peak exercise upsloping ST changes only were noted with normally the criteria for ischemia. No clinical angina was noted. The resting blood pressure 148/88 with a peak blood pressure 154/90 mmHg rate pressure product was 23,800. Myocardial perfusion protocol. 14.7 mCi of technetium 99m sestamibi was injected at rest. The patient exercised according to regular Obye protocol for 6 minutes and 45 seconds attaining 90% of maximum predicted heart rate and a workload of 8.1 metabolic equivalents at peak exercise 44.9 mCi of technetium 99m sestamibi was injected stress images were obtained stress and rest images were reconstructed and compared in the short axis vertical and horizontal long axis. Gated images were also obtained per Perfusion SPECT analysis: Review of the stress images demonstrate normal uptake of tracer noted in all areas of myocardium. The resting images similarly demonstrate normal uptake of tracer noted in all areas of myocardium. No areas of reversibility are noted suggest ischemia and no previous infarct is noted. Gated SPECT analysis: The gated ejection fraction is noted to be 68%. Conclusion: Normal exercise myocardial perfusion stress test at a moderate workload. Preserved ejection fraction. 03/30/18 1036 <Electronically signed by Sergo Rocha MD> Date Sergo Rocha MD CC: Edyta Arrington MD; Moon Horta MD Date Dictated: 03/30/18 1033 Date Transcribed: 03/30/18 103 Line Out Man: CO Signed BEDSIDE GLUCOSE Collected: 03/30/2018 Status: F Source: [place] 8:37 [facility] [place] TYPE CODE TESTS RESULT OUT OF REFERENCE UNITS RANGE LAB L501.080 70-110 mg/dL High BEDSIDE GLU 313 Result Comment: MANAGEMENT OF PATIENT CARE PER NURSING PROTOCOL Performed By: #### L501.080 #### [facility] Laboratory Point of Care [address] [place], [place] [address] BEDSIDE GLUCOSE Collected: 03/30/2018 Status: F Source: [place] 6:27 AM [facility] [place] TYPE CODE TESTS RESULT OUT OF REFERENCE UNITS RANGE LAB L501.080 70-110 mg/dL High BEDSIDE GLU 346 Result Comment: MANAGEMENT OF PATIENT CARE PER NURSING PROTOCOL Performed By: #### L501.080 #### [facility] Laboratory Point of Care [address] [facility] [place] [address] CBC W/DIFF, AUTOMATED Collected: 03/30/2018 Status: F Source: [place] 5:05 AM [facility] [place] TYPE CODE TESTS RESULT OUT OF RANGE REFERENCE UNITS LAB L100.1000 4.4-11.0 K/mm3 Normal WBC 7.1 LAB L100.1200 4.2-5.4 M/mm3 Normal RBC 5.06 LAB L100.1300 12.0-15.0 g/dl Normal HGB 14.1 LAB L100.1400 37-47 % Normal HCT 44.0 LAB L100.1500 81-99 fL Normal MCV 87.0 LAB L100.1600 27.0-32.0 pg Normal MCH 27.9 LAB L100.1700 32-36 g/gl Normal MCHC 32.0 LAB L100.1810 11.6-14.6 % Normal RDW CV 12.5 LAB L100.1820 35.1-43.9 fl Normal RDW SD 39.2 LAB L100.1900 150-450 K/mm3 Normal PLT 278 LAB L100.2000 6.2-12.0 fl Normal MPV 11.2 LAB L100.2100 47-70 % High NEUT% 89.8 LAB L100.2200 19-41 % Low LY% 9.2 LAB L100.2300 0-10 % Normal MONO% 0.7 LAB L100.2400 0-5 % Normal EO% 0.1 LAB L100.2500 0-1 % Normal BASO% 0.1 LAB L100.2550 0.0-0.9 % Normal IM GRAN % 0.100 Result Comment: IG% - Immature Granulocytes (promyelocytes, myelocytes and metamyelocytes) > 1% indicates that a LEFT SHIFT is Present. LAB L100.2620 2.0-7.7 X10 3/uL Normal Absolute Neut 6.3 LAB L100.2720 0.83-4.51 X10 3/ul Low Absolute Lymph 0.65 Performed By: #### L100.0100 #### [facility] [address] [facility]. [facility] [address] PROTHROMBIN TIME W/INR Collected: 03/30/2018 Status: F Source: CHAO 5:05 AM [facility] [place] TYPE CODE TESTS RESULT OUT OF RANGE REFERENCE UNITS LAB L300.4150 11.7-14.9 SECONDS Normal PROTIME 13.4 LAB L300.4200 Normal INR 1.0 Performed By: #### L300.3900, L300.4310 #### [facility] [address] [facility] [facility] [address] PARTIAL THROMBOPLAST Collected: 03/30/2018 Status: F Source: EQUINUNK TIME 5:05 AM [facility] [place] TYPE CODE TESTS RESULT OUT OF RANGE REFERENCE UNITS LAB L300.4310 24.1-36.2 Seconds Normal PTT 25.8 Performed By: #### L300.3900, L300.4310 #### [facility] [address] [facility] [address] BASIC METABOLIC Collected: 03/30/2018 Status: F Source: CHAO PROFILE (BMP) 5:05 AM [facility] [place] TYPE CODE TESTS RESULT OUT OF RANGE REFERENCE UNITS LAB L501.0100 74-106 mg/dL High GLU 372 Result Comment: Glucose result greater than or equal to 200 mg/dL suggests DIABETES MELLITUS per A.D.A. criteria. Please note revised GLUCOSE reference range effective 2017. LAB L501.1000 7-18 mg/dL Normal BUN 17 LAB L501.1100 0.55-1.02 mg/dL Normal CREAT,SERUM 0.95 Result Comment: The validity of the calculated GFR AND GFRAA in patients over 70 years has not been determined. Clinical correlation is essential. LAB L501.1110 >60 mL/min Normal EST GFR 69 Result Comment: Non- GFR Calc LAB L501.1115 >60 mL/min Normal EST GFR - AA 83 Result Comment: GFR Calc LAB L501.1255 ml/min Normal Estimated CRCL 62.26 LAB L501.1300 10-20 RATIO Normal BUN/CRE 17.8 LAB L501.2200 8.5-10 mg/dL Normal .1 CA 9.0 LAB L501.5300 136-14 mmol/L Low 5 NA 135 LAB L501.5600 3.5-5. mmol/L Normal 1 K 4.7 LAB L501.5900 98-107 mmol/L Normal CL 102 LAB L501.6100 21.0-3 mmol/L Normal 2.0 CO2 24.0 LAB L501.6200 5-15 Normal GAP 9 Performed By: #### L500.2500, L500.4100 #### [facility] [address] [facility] [place], [address] LIPID PROFILE Collected: 03/30/2018 Status: F Source: EQUINUNK 5:05 AM [facility] [place] TYPE CODE TESTS RESULT OUT OF RANGE REFERENCE UNITS LAB L501.4900 200 mg/dL High CHOL 245 Result Comment: <200 mg/dL Desirable 200-240 mg/dL Borderline >240 mg/dL High Risk LAB L501.5000 mg/dL Normal TRIG 107 Result Comment: The drugs N-Acetylcysteine and Metamizole may falsely depress this assay. Serum Triglycerides Reference Interval Normal <150 mg/dL Borderline high 150 - 199 mg/dL High 200 - 499 mg/dL Very High > or = 500 mg/dL LAB L501.6400 mg/dL Normal HDL 52 Result Comment: The drugs N-Acetylcysteine and Metamizole may falsely depress this assay. Reference Range HDL <40 mg/dL Low HDL Cholesterol HDL >or= 60 mg/dL High HDL Cholesterol LAB L501.6500 0-130 mg/dL High LDL 172 LAB L501.6600 5-40 mg/dL Normal VLDL 21 Performed By: #### L500.2500, L500.4100 #### [facility] [address] [place], [address] BNP,B-TYPE NATRIURETIC Collected: 03/30/2018 Status: F Source: CHAO PEPTIDE 5:05 AM [facility] [place] Order Comment: Comments: as add on test TYPE CODE TESTS RESULT OUT OF RANGE REFERENCE UNITS LAB L503.6620 0-100 pg/mL Normal B-TYPE 32.8 REGINA PEP Performed By: #### L503.6620 #### [facility] [address] [place], [address] HEMOGLOBIN A1C Collected: 03/30/2018 Status: F Source: CHAO 5:05 AM [facility] [place] Order Comment: Comments: as add on test TYPE CODE TESTS RESULT OUT OF RANGE REFERENCE UNITS LAB L501.9985 4.2-6.3 % High HGB A1C 11.4 Performed By: #### L501.9985 #### [facility] [address] [place], [address] BEDSIDE GLUCOSE Collected: 03/29/2018 Status: F Source: CHAO 9:24 PM [facility] [place] TYPE CODE TESTS RESULT OUT OF REFERENCE UNITS RANGE LAB L501.080 70-110 mg/dL High BEDSIDE GLU 289 Result Comment: MANAGEMENT OF PATIENT CARE PER NURSING PROTOCOL Performed By: #### L501.080 #### [facility] Point of Care [address] [place] [address] ECHO, COMPLETE W/ Observed: 03/29/2018 Status: F Source: CHAO CONTRAST 7:17 PM [facility] [place] [facility] Cardiovascular Services [address] [place] [address] Echo Complete W/ Contrast 03/29/18 1017 MR#: [id number] Acct: [id number] Name: DESIREE SMALL Rep #: [id number] : 1975 42 From: Walter Paula MD Attending Dr: Edyta Arrington MD Status: ADM KATHI Ordering Dr: Edyta Arrington MD Date: 03/29/18 Location: U Sex: F C Admitted: 03/29/18 Reason For Study: CP Procedure This was a 2D Doppler, Color Flow transthoracic echocardiogram. The study was technically difficult. Contrast injection was performed. Exam performed portable in patient room. Left Ventricle Normal LV size. Mild concentric left ventricular hypertrophy. Left ventricular systolic function is normal. The estimated ejection fraction is 60 %. No evidence for diastolic dysfunction. No regional wall motion abnormalities noted. Right Ventricle Normal RV size. Normal systolic function. Atria Normal left atrium. Normal right atrium. No doppler evidence for ASD. Mitral Valve There is no mitral annular calcification. Normal mitral valve. Tricuspid Valve Normal tricuspid valve. Aortic Valve Trisinus/trileaflet aortic valve. Normal aortic valve. Pulmonic Valve The pulmonic valve is not well visualized. Trivial pulmonic valve insufficiency. Great Vessels Normal sized aortic root. Pericardium/Pleural No pericardial effusion. Medication Diluted definity 4ml given slow IV push to enhance endocardial definition. MMode/2D Measurements AND Calculations LVIDd: 3.7 cm IVSd: 1.3 cm Ao root diam: 3.3 cm LVIDs: 2.4 cm LVPWd: 1.4 cm FS: 35.7 % LAV(MOD-sp4): 59.4 ml LA A4 area: 19.9 cm2 RA A4 area: 12.6 cm2 Time Measurements MV dec time: 0.27 sec Doppler Measurements AND Calculations MV E max maria e: 63.4 cm/sec Lat Peak E' Maria E: 10.6 cm/sec Med Peak E' Maria E: 6.8 cm/sec MV A max maria e: 56.9 cm/sec E/E' lat: 6.0 E/E' med: 9.4 MV E/A: 1.1 MV V2 max: 65.6 cm/sec MV P1/2t max maria e: 65.6 cm/sec Ao V2 max: 121.9 cm/sec MV max P.7 mmHg MV P1/2t: 84.9 msec Ao max P.9 mmHg MV V2 mean: 40.1 cm/sec MV dec slope: 226.3 cm/sec2 Ao V2 mean: 73.9 cm/sec MV mean P.74 mmHg Ao mean P.7 mmHg MV V2 VTI: 18.7 cm MVA(P1/2t): 2.6 cm2 Ao V2 VTI: 22.1 cm LV V1 max: 96.4 cm/sec PA V2 max: 82.8 cm/sec LV V1 max P.7 mmHg LV V1 mean P.9 mmHg LV V1 mean: 62.7 cm/sec LV V1 VTI: 20.5 cm Interpretation Summary The study was technically difficult. Contrast injection was performed. Left ventricular systolic function is normal. The estimated ejection fraction is 60 %. Mild concentric left ventricular hypertrophy. Trivial pulmonic valve insufficiency. No evidence for diastolic dysfunction. Ordering Physician: Edyta Arrington Referring Physician: MD Amado Moon Performed By: Silvano Dowell RCS 03/29/18 1917 Date Walter Paula MD CC: Edyta Arrington MD; Moon Horta MD Date Dictated: 03/29/18 1017 Date Transcribed: 03/29/181916 Line Out Man: Signed BEDSIDE GLUCOSE Collected: 03/29/2018 Status: F Source: CHAO 4:22 PM [facility] [place] TYPE CODE TESTS RESULT OUT OF REFERENCE UNITS RANGE LAB L501.080 70-110 mg/dL High BEDSIDE GLU 201 Result Comment: MANAGEMENT OF PATIENT CARE PER NURSING PROTOCOL Performed By: #### L501.080 #### [facility] Point of Care [address] [place] [address] HISTORY AND PHYSICAL Observed: 03/29/2018 Status: F Source: EQUINUNK EXAM 2:04 PM [facility] [place] [facility] Medical Records Department [address] [place] [address] History and Physical 03/29/18 0844 MR#: [id number] Acct: [id number] Name: DESIREE SMALL Rep #: [id number] : 1975 42 From: Edyta Arrington MD PCP: Moon Horta MD Status: ADM KATHI Y Location: [place] [address] Problem List (1) HTN (hypertension) Status: Chronic Qualifiers: Hypertension type: essential hypertension Qualified Code(s): I10 - Essential (primary) hypertension (2) Diabetes Status: Acute Qualifiers: Diabetes mellitus type: type 2 Diabetes mellitus skilled nursing insulin use: without skilled nursing use Diabetes mellitus complication status: with unspecified complications Qualified Code(s): E11.8 - Type 2 diabetes mellitus with unspecified complications (3) Migraine Status: Chronic Qualifiers: Migraine type: without aura Status migrainosus presence: without status migrainosus (4) GERD (gastroesophageal reflux disease) Status: Chronic History of Present Illness Date of Admission: 03/29/18 Chief Complaint: Chest pain - 1 day The patient is a 42 year old F with PMHx of hypertension, hyperlipidemia, Type 2 DM, morbid obesity who comes in with complaints of chest pain that started 1 day ago. Patient recently had her children ill with upper respiratory infection. She is subsequently began feeling very tired. Went to bed last night and woke up this morning with chest discomfort described as somebody sitting on her chest radiates to her right shoulder and right. Denied any dizziness or shortness of breath or palpitation. Patient denied any bilateral leg extremity edema, orthopnea or PND. She denied any cardiac history. Vitals in ED showed temp 98.1F, HR 84, BP 163/102, RR 18, spo2 98% on RA. Admitting labs are unremarkable. EKG showed no acute ST-T changes. Initial troponin is negative. Chest X-ray is unremarkable for any acute cardiopulmonary process. Past Medical History Past Medical History (Chronic Problems): Chronic Problems HTN (hypertension) (Chronic) Headache (Chronic) Migraine (Chronic) GERD (gastroesophageal reflux disease) (Chronic) Migraine (Chronic) Allergies Penicillins Allergy (Verified 03/29/18 07:25) Hives venom-honey bee [bee venom (honey bee)] Allergy (Verified 03/29/18 07:25) Anaphylaxis Home Medications: Ambulatory Orders Medication Instructions Recorded Surgical History: noncontributory, - - Cholecystectomy, ectopic ; tubal ligation. 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 Denies: Anorexia, Chills, Fever, Night Sweats, Malaise, Weight Change Eyes: Denies: Blurred vision, Cataracts, Conjunctivae Inflammation, Pain, Redness HEENT: Denies: Difficulty Hearing, Difficulty Swallowing, Head Aches, Hearing Changes, Sinus Congestion, Sinus Drainage, Sore Throat Cardiovascular: Reports: Chest Pain, Chest Tightness. Denies: Claudication, Light Headedness, Orthopnea, Palpitations, Paroxysmal Noc. Dyspnea Respiratory: Reports: Shortness of breath at rest, Shortness of breath upon exertion. Denies: Cough, Hemoptysis, Sputum production Gastrointestinal: Denies: Abdominal Pain, Constipation, Hematemesis, Hematochezia, Nausea, Vomiting Genitourinary: Denies: Dysuria, Frequency, Incontinence Musculoskeletal: Denies: Joint Pain, Joint stiffness, Joint swelling, Joint Tenderness Skin: Denies: Rash, Wounds Neurological: Denies: Difficulty swallowing, Focal weakness, Numbness, Tingling Psychiatric: Denies: Anxiety, Depression, Homicidal Ideations, Suicidal Ideations Hematologic/ Lymphatic: Denies: Easy Bruising, Easy Bleeding VTE Information - Inpt Only VTE Present on Admission: No VTE Pharm Prophylaxis ordered?: Yes - Physical Exam General: Alert, Oriented x3, Cooperative, No apparent distress, - - morbid obesity HEENT: Atraumatic, PERRLA, EOMI, Normocephalic Oral: Moist Mucosa Neck: Supple, No JVD, Negative Carotid Bruits Lungs: Clear to auscultation, Normal air movement Cardiovascular: Regular rate, Regular Rhythm, Normal S1, Normal S2, No murmurs Abdomen: Bowel Sounds Present, Soft, Non Tender, Non-Distended, No Hepato-splenomegaly Extremities: No edema Skin: No rashes, No breakdown Musculoskeletal: No Tenderness to Palpation of Joints or Extremities Lymphatic: No Cervical, Supraclavicular, or Inguinal Adenopathy Neurological: Cranial nerves II-XII grossly intact, Neuro grossly intact Psych/Mental Status: Normal Affect, Appropriate Vital Signs Temp Pulse Resp BP Pulse Ox 98.1 F 77 18 162/104 H 98 03/29/18 07:23 03/29/18 07:53 03/29/18 07:23 03/29/18 07:53 03/29/18 07:23 Oxygen Delivery Method Room Air Weight: 105.233 kg Body Mass Index (BMI) 42.4 Finger Stick Blood Glucose 305 Laboratory Tests Past 24 Hrs WBC 6.4 RBC 4.84 Hgb 13.5 Hct 43.2 MCV 89.3 MCH 27.9 MCHC 31.3 L RDW 12.6 Assessment/Plan All Active Problems Diabetes (Acute) Status migrainosus (Acute) 42 year old F with PMHx of hypertension, hyperlipidemia, Type 2 DM, morbid obesity who comes in with complaints of chest pain that started 1 day ago. 1. Acute chest pain, in a patient with multiple risk factors, initial troponin was negative, EKG is unremarkable Plan: Admit to PCU, on telemetry bed, trend troponins, nuclear stress test, 2d-ech hypertension, controlled, o, aspirin 81mg daily, nitro prn 2. Hypertension, controlled, on low-sodium diet, not on medications 3. Hyperlipidemia, not statin, lipid profile in am 4. Type 2 DM, on insulin, will continue same, accuchecs with insulin sliding scale 5. Morbid obesity, BMI 42.4, diet and exercises is recommended. 6. DVT PPx- Lovenox SC Code Visit OBSV E AND M: [id number] Initial observation care L3 03/29/18 1404 <Electronically signed by Edyta Arrington MD> Date Edyta Arrington MD Cosigner Signature: Date (if applicable) CC: Edyta Arrington MD; Moon Horta MD Signed TROPONIN-I Collected: 03/29/2018 Status: F Source: CHAO 1:55 PM [facility] [place] Order Comment: 'TROP' Serial specimen #1, #2 or #3: 3 TYPE CODE TESTS RESULT OUT OF RANGE REFERENCE UNITS LAB L501.4010 <0.045 ng/mL Normal < 0.015 TROPONIN-I Result Comment: TROPONIN-I EXPECTED VALUES <0.045 Negative 0.045 - 0.590 Consistent with Cardiac Damage > OR = 0.600 Critical Value Not every elevated troponin is indicative of WA. These values should be used with clinical judgement in examining the patient's clinical picture for diagnosis. To establish a diagnosis of WA versus myocardial injury, there must be a demonstrated rise and/or fall in the troponin values, in addition to ischemic symptoms, EKG changes, new regional wall motion abnormality, and/or angiographical evidence. PLEASE NOTE: REFERENCE RANGES EDITED 17 Performed By: #### L501.4010 #### [facility] [address] [place], [place], [address] BEDSIDE GLUCOSE Collected: 03/29/2018 Status: F Source: CHAO 11:59 AM [facility] [place] TYPE CODE TESTS RESULT OUT OF REFERENCE UNITS RANGE LAB L501.080 70-110 mg/dL High BEDSIDE GLU 165 Result Comment: MANAGEMENT OF PATIENT CARE PER NURSING PROTOCOL Performed By: #### L501.080 #### [facility] Point of Care [address] [facility] [address] TROPONIN-I Collected: 03/29/2018 Status: F Source: EQUINUNK 10:46 AM [facility] [place] Order Comment: 'TROP' Serial specimen #1, #2 or #3: 2 TYPE CODE TESTS RESULT OUT OF RANGE REFERENCE UNITS LAB L501.4010 <0.045 ng/mL Normal < 0.015 TROPONIN-I Result Comment: TROPONIN-I EXPECTED VALUES <0.045 Negative 0.045 - 0.590 Consistent with Cardiac Damage > OR = 0.600 Critical Value Not every elevated troponin is indicative of WA. These values should be used with clinical judgement in examining the patient's clinical picture for diagnosis. To establish a diagnosis of WA versus myocardial injury, there must be a demonstrated rise and/or fall in the troponin values, in addition to ischemic symptoms, EKG changes, new regional wall motion abnormality, and/or angiographical evidence. PLEASE NOTE: REFERENCE RANGES EDITED 17 Performed By: #### L501.4010 #### [facility] [address] [place] [address] [place], [address] EMERGENCY DEPARTMENT Observed: 03/29/2018 Status: F Source: EQUINUNK SUMMARY 8:29 AM [facility] [place] [facility] Medical Records Department [address] [facility] [place] [address] Emergency Department Summary 03/29/18 0749 MR#: [id number] Acct: [id number] Name: DESIREE SMALL Melodie Rep #: [id number] : 1975 42 From: Lucius Cowan MD PCP: Moon Horta MD Status: REG ER - ER Visit Summary Date of Service: 03/29/18 Chief Complaint: Selectively triaged himself there appropriately chest heaviness/tightness that awoke patient from sleep History of Present Illness: The patient is a 42 F who has multiple medical problems which include type 2 diabetes, hypertension hypercholesterolemia. She is a former smoker. She has not smoked in 10 years. Multiple family members with coronary disease early 40s. Patient states last evening before dinner around 1700 she developed chest heaviness tightness with radiation to both shoulders arms associated with shortness of breath. She states she took Tylenol and went to bed early. She is not able to tell me the duration of symptoms. She states it was greater than 30 minutes. She reports she was awakened from sleep with heaviness in her chest radiating to both shoulders down both arms followed by numbness in both arms gasping for breath and diaphoresis. Upon further questioning she has had dyspnea on exertion for the past several weeks. She has had chest tightness at work. She states she did not stop working because she was fearful she may lose her job. 2 weeks ago she developed blurred vision secondary to poor control of diabetes. She also has history of diabetic neuropathy. She reports a 72.8 pound intentional weight loss over the past year. She denies symptoms of claudication. She does report walking to work. She states distance is 5 blocks. She occasionally experiences shortness of breath but no other symptoms. Patient states she does have history anxiety. She thought initially this was secondary to anxiety. When asked what symptoms she has with anxiety she reports palpitations. She also has history of reflux. She states she has not had an episode of reflux in 8 years and her symptoms are different. She does not take an aspirin a day. She has never had a stress test. Physical Examination: Patient's vitals are noted and remarkable for blood pressure 162/102. Head is atraumatic normocephalic. Pupils are equal round reactive. Extraocular muscles are intact. TMs are pearly white with landmarks noted. Nares patent with no drainage. Posterior pharynx without erythema or exudate. Uvula is midline. There is no dysphonia or dysphasia. Trachea is midline. There is no stridor with auscultation of the neck. Heart is regular without murmur, gallop or rub. S1 and S2 are normal. Lungs are clear to auscultation with good movement of air bilaterally. There is no pain the patient of the chest. Abdomen is soft nontender with no palpable cell mass abdominal bruit. She has stigmata of peripheral arterial disease lower extremity with minimal hair and states that she does not shave her legs daily. She shaves every 1-2 weeks. She also has a paucity of hair on her toes. DP PT pulse are diminished. Neuro exam is nonfocal. Test Results: EKG is normal. Ventricular rate 77. HI interval, QRS duration, QT interval and axis are normal. EKG was obtained without pain. Portable chest x-ray interpreted by me as unremarkable. Blood work is remarkable for glucose of 303. KING risk score 2. Heart score is 2. Emergency Department Course and Treatment: Chest order set was initiated. Need to evaluate for coronary disease versus GI versus pulmonary versus anxiety reaction. With history of diabetes that is poorly controlled neuropathy with stigmata of peripheral arterial disease former smoker family members with coronary disease at young age concern the discomfort that she experienced that awoke her from sleep and dyspnea on exertion is cardiac in etiology. She was treated with aspirin and Nitropaste was applied since she is symptom-free. She was then informed that she will require admission for further testing. Treatment Plan: [place] [phone] further testing. Observation status PCU Disposition: PCU Impression: 1. Chest pain 2. Hyperglycemia in diabetic patient 3. History of hypertension 4. History of hypercholesterolemia This note was generated with [employer] software. It may contain incorrect words, spelling, and punctuation that were not noted in review of the chart prior to signing ED Disposition - Plan for ED Patient: Chief Complaint: Other, Pain/Inj Referrals: Moon Horta MD [Primary Care Provider] - What to do if you have Problems For any increased pain, shortness of breath, bleeding, nausea or vomiting, chest pain, or any unexpected problems, contact your Primary Care Provider. Call [facility] ([phone]) or report to the closest Emergency Room. Call 911 if necessary. 03/29/18 0829 <Electronically signed by Lucius Cowan MD> Date Lucius Cowan MD Cosigner Signature (If Indicated): Date CC: Moon Horta MD CBC W/DIFF, AUTOMATED Collected: 03/29/2018 Status: F Source: CHAO 7:43 AM [facility] [place] TYPE CODE TESTS RESULT OUT OF RANGE REFERENCE UNITS LAB L100.1000 4.4-11.0 K/mm3 Normal WBC 6.4 LAB L100.1200 4.2-5.4 M/mm3 Normal RBC 4.84 LAB L100.1300 12.0-15.0 g/dl Normal HGB 13.5 LAB L100.1400 37-47 % Normal HCT 43.2 LAB L100.1500 81-99 fL Normal MCV 89.3 LAB L100.1600 27.0-32.0 pg Normal MCH 27.9 LAB L100.1700 32-36 g/gl Low MCHC 31.3 LAB L100.1810 11.6-14.6 % Normal RDW CV 12.6 LAB L100.1820 35.1-43.9 fl Normal RDW SD 40.7 LAB L100.1900 150-450 K/mm3 Normal PLT 256 LAB L100.2000 6.2-12.0 fl Normal MPV 11.1 LAB L100.2100 47-70 % Normal NEUT% 64.5 LAB L100.2200 19-41 % Normal LY% 25.3 LAB L100.2300 0-10 % Normal MONO% 5.8 LAB L100.2400 0-5 % Normal EO% 3.6 LAB L100.2500 0-1 % Normal BASO% 0.6 LAB L100.2550 0.0-0.9 % Normal IM GRAN % 0.200 Result Comment: IG% - Immature Granulocytes (promyelocytes, myelocytes and metamyelocytes) > 1% indicates that a LEFT SHIFT is Present. LAB L100.2620 2.0-7.7 X10 3/uL Normal Absolute Neut 4.1 LAB L100.2720 0.83-4.51 X10 3/ul Normal Absolute Lymph 1.62 Performed By: #### L100.0100 #### [facility] [address] [place], [place], [address] BASIC METABOLIC Collected: 03/29/2018 Status: F Source: CHAO PROFILE ([facility]) 7:43 AM [facility] [place] TYPE CODE TESTS RESULT OUT OF RANGE REFERENCE UNITS LAB L501.0100 74-106 mg/dL High GLU 303 Result Comment: Glucose result greater than or equal to 200 mg/dL suggests DIABETES MELLITUS per A.D.A. criteria. Please note revised GLUCOSE reference range effective 2017. LAB L501.1000 7-18 mg/dL Normal BUN 11 LAB L501.1100 0.55-1.02 mg/dL Normal CREAT,SERUM 0.78 Result Comment: The validity of the calculated GFR AND GFRAA in patients over 70 years has not been determined. Clinical correlation is essential. LAB L501.1110 >60 mL/min Normal EST GFR 87 Result Comment: Non- GFR Calc LAB L501.1115 >60 mL/min Normal EST GFR - AA 105 Result Comment: GFR Calc LAB L501.1255 ml/min Normal Estimated CRCL 75.83 LAB L501.1300 10-20 RATIO Normal BUN/CRE 14.1 LAB L501.2200 8.5-10 mg/dL Normal .1 CA 9.5 LAB L501.5300 136-14 mmol/L Normal 5 NA 136 LAB L501.5600 3.5-5. mmol/L Normal 1 K 4.1 LAB L501.5900 98-107 mmol/L Normal CL 101 LAB L501.6100 21.0-3 mmol/L Normal 2.0 CO2 26.0 LAB L501.6200 5-15 Normal GAP 9 Performed By: #### L500.2500, L501.4010 #### [facility] [address] [place], [address] TROPONIN-I Collected: 03/29/2018 Status: F Source: [place] 7:43 AM [facility] [place] CODE TESTS RESULT OUT OF RANGE REFERENCE UNITS LAB L501.4010 <0.045 ng/mL Normal < 0.015 TROPONIN-I Result Comment: TROPONIN-I EXPECTED VALUES <0.045 Negative 0.045 - 0.590 Consistent with Cardiac Damage > OR = 0.600 Critical Value Not every elevated troponin is indicative of WA. These values should be used with clinical judgement in examining the patient's clinical picture for diagnosis. To establish a diagnosis of WA versus myocardial injury, there must be a demonstrated rise and/or fall in the troponin values, in addition to ischemic symptoms, EKG changes, new regional wall motion abnormality, and/or angiographical evidence. PLEASE NOTE: REFERENCE RANGES EDITED 17 Performed By: #### L500.2500, L501.4010 #### [facility] [address] [place], [address] CHEST 1 VIEW Observed: 03/29/2018 Status: F Source: EQUIN[place]K (PORTABLE) 7:38 AM [facility] [place] [facility] Imaging Services [address] [place] [address] Chest 1 View (Portable) MR#: [id number] Acct: [id number] Name: DESIREE SMALL Rep #: [id number] : 1975 F 42 From: Jose Luis Aviles DO PCP: Moon Horta MD Status: REG ER Study: Chest 1 View (Portable) Date of Exam: 03/29/18 Exam# [id number] Ordering Dr: Lucius Cowan MD STUDY: X-RAY CHEST REASON FOR EXAM: Female, 42 years old. Chest pain TECHNIQUE: Single AP portable view of the chest. COMPARISON: None. FINDINGS: The lungs are clear and expanded. There is no demonstrated pleural abnormality. There is borderline cardiomegaly. Normal mediastinum and alethea. Normal visualized pulmonary arteries. Normal visualized aortic arch and descending thoracic aorta. Normal visualized thoracic spine. Normal visualized ribs, clavicles, and shoulders. There is no demonstrated abnormality of the visualized soft tissue structures of the upper abdomen. RAD/Chest 1 View (Portable) IMPRESSION: Normal x-ray examination of the chest. Electronically Signed: Jose Luis Aviles DO at 8:11 EST Tel , Service support , CC: Moon Horta MD; Lucius Cowan MD Line Out Man: Signed CNOV Observed: 03/10/2018 Status: COMPLETED Source: [place] 12:[address] [facility] [place] REPOSITORY Office Visit (FAMPWS) DESIREE SMALL ([id number]) 1975 F Date Time Provider Department 03/10/18 12:40 PM DANAY MENDOZA (JENNY) DANIELA During your visit today, we recorded the following information about you: Pulse Respiration Blood pressure Weight 93/minute 20/minute 122/78 105.2 kg Danay Mendoza APRN.JENNY 03/10/2018 3:55 PM Signed 03/10/2018 Patient presents with: Diabetes SUBJECTIVE: This is a 42 year old that is here today for high blood sugars and blurred vision. She states that she was sent home from work because she was in a press and her vision became blurry. She states that this happened when she was diagnosed with DM. She is very argumentative during the whole visit. She is very upset that she was placed on victoza and didn't tolerate it. She feels that no one has ever listened to her. Attempted to look back at medications and confirm if she tolerated and she states that she does not know if she was taking any of them. She states multiple times that she knows everything that she needs to about DM with trying to educate or discuss topics related, but she also states that she does not know why she was on any medications. She states at one point that she is not taking any medications, then she states that she is only taking an anti inflammatory, metformin and gabapentin. She states that she will not be taking her BP medications or cholesterol medication because she does not feel that she needs them. She states that she knows that the victoza was making her sick, but feels that they all do, so she does not want to be on them. She also at one point said that her pharmacy does not give her all of the medications. When asked what she would like out of this visit today she states I don't know anything about what I need to take, but it needs to be something that will actually work and in an appropriate time DIABETES MELLITUS: Since our last visit she denies chest pain or dyspnea , numbness, tingling or pain in extremities, low sugar/hypoglycemic reactions, lightheadedness/dizziness and bowel changes/loose stools. + for excessive thirst and urination and nerve pain in addition to the blurred vision Follows a diabetic diet probably noncomplaint although I cannot elucidate specific history. She is not compliant with medication(s) due to side effects of stomach upset. She reports checking her glucose on a infrequent to not at all basis schedule with sugars in the fasting 400s range. Patient's last HgA1C was Hemoglobin A1C (%) Date Value 11/25/2017 11.2 08/05/2017 10.2 Hemoglobin A1C (POCT) (%) Date Value 03/10/2018 12.7 ) Complications of Diabetes include: peripheral neuropathy PAST MEDICAL HISTORY Diagnosis Date - Bipolar disorder, unspecified (HCC) - Migraine without aura, without mention of intractable migraine without mention of status migrainosus - Other psoriasis - Rash and other nonspecific skin eruption - Recovering alcoholic (HCC) - Substance abuse (HCC) ALLERGIES Penicillins; Prednisone; Vicodin [Hydrocodone-Acetaminophen] MEDICATIONS Current Outpatient Prescriptions: levonorgestrel (MIRENA) 20 mcg/24 hr (5 years) IUD Inserted in office VICTOZA 3-ASAEL 0.6 mg/0.1 mL (18 mg/3 mL) pnij INJECT 1.8MG UNDER THE SKIN ONCE DAILY dicyclomine (BENTYL) 10 mg capsule TAKE ONE CAPSULE BY MOUTH BEFORE MEALS AND AT BEDTIME NEEDED cholecalciferol, Vitamin D3, (VITAMIN D3) 50,000 unit cap capsule Take 1 capsule by mouth once each week. glimepiride (AMARYL) 4 mg tablet TAKE TWO TABLETS BY MOUTH ONCE DAILY IN THE MORNING PRIOR TO MEALS atorvastatin (LIPITOR) 40 mg tablet Take 1 tablet by mouth once daily. acetaminophen (TYLENOL ARTHRITIS PAIN) 650 mg CR tablet Take 1 tablet by mouth every 8 hours as needed. insulin needles, DISPOSABLE, (BD INSULIN PEN NEEDLE UF) 31 gauge x 5/16 ndle Use as directed once daily with insulin pen DM: yes Insulin: yes DX:E11.9 Lancets lancets Test blood sugar(s) 3-4 times daily. Dx: Type 2 DM - Controlled E11.9 Insulin: Yes blood sugar diagnostic (BLOOD GLUCOSE TEST) test strip Test blood sugar(s) 3-4 times daily. Dx: Type 2 DM - Controlled E11.9 Insulin: Yes metFORMIN (GLUCOPHAGE) 1,000 mg tablet TAKE 1 TABLET BY MOUTH TWICE DAILY WITH MEALS CHITRA AQUINO U-100 INSULIN 100 unit/mL (3 mL) inpn INJECT 40 UNITS SUBCUTANEOUSLY ONCE DAILY lisinopril-hydrochlorothiazide (PRINZIDE,ZESTORETIC) 10-12.5 mg per tablet TAKE ONE TABLET BY MOUTH EVERY DAY gabapentin (NEURONTIN) 300 mg capsule Take 1 capsule by mouth three times daily for 180 days. etodolac (LODINE) 400 mg tablet TAKE ONE TABLET BY MOUTH 2 TIMES A DAY blood sugar diagnostic (FREESTYLE LITE STRIPS) test strip Test blood sugar(s) 2x daily. Dx: E11.65. Insulin: No Omeprazole 40 mg capsule TAKE ONE CAPSULE BY MOUTH EVERY DAY cyanocobalamin (VITAMIN B-12) 1,000 mcg tab Take 1 tablet by mouth once daily. calcium carb-mag ox-zinc gluc 333-133-5 mg tab Take 1 tablet by mouth once daily COMPOUNDED PRESCRIPTION OTC B12 100 mcg daily COMPOUNDED PRESCRIPTION OTC Calcium, magnesium , zinc 500 mg - takes one 500 mg tablet in the morning and one 500 mg tablet in the evening COMPOUNDED PRESCRIPTION OTC Tylenol for arthritis - 650 mg tablet - takes two tablets in morning and 2 tablets at night FERROUS SULFATE (IRON ORAL) Take by mouth. Compression Knee Highs KNEE HIGH COMPRESSION STOCKINGS 30- 40 MM. DX: EDEMA. Bilateral leg swelling. lancets (FREESTYLE LANCETS) 28 gauge misc Test blood sugar(s) 2x daily. Dx: E11.65. Insulin: No No current facility-administered medications for this visit. Medications and allergies reviewed by this provider. SOCIAL HISTORY Social History Marital status: Spouse name: Years of education: Number of children: Social History Main Topics Smoking status: Former Smoker Packs/day: 0.00 Years: 0.00 Quit date: 03/08/2003 Smokeless tobacco: Never Used Alcohol use: No Comment: recovering alcohol Drug use: No Comment: past history milind Sexual activity: Yes Partners with: Male control/protection: Tubal Ligation REVIEW OF SYSTEMS see HPI OBJECTIVE: BP 122/78 Pulse 93 Resp 20 Wt 105.2 kg (232 lb) SpO2 96% BMI 42.43 kg/m? . Vital signs reviewed by this provider. PHYSICAL EXAMINATION: General appearance: Well appearing, alert, in no acute distress, well-hydrated, well nourished. and Morbidly obese Skin: Skin color, texture, turgor normal, no suspicious rashes or lesions Unable to complete any further exam due to pt refusal to cooperate ASSESSMENT/PLAN: 1. Type 2 diabetes mellitus with diabetic neuropathy, with long-term current use of insulin ([facility]) - ICD9: 250.60, 357.2, V58.67, ICD10: E11.40, Z79.4 (primary diagnosis) uncontrolled Poor adherence to plan of care. The patient is new to me. - Blood glucose monitoring on a four times a day schedule - Ophthalmology referral for eval/management of diabetic eye changes - Referral to Endocrinology for transfer of care for DM management - Encouraged regular aerobic exercise and weight loss - Daily Asprin therapy recommended - Follow up in 1 month, sooner should any other issues arise. - Attempted to discuss diabetic education issues of intermodal customer service diabetic complications, hypoglycemic symptoms, hyperglycemic symptoms, diet, medications- side effects and need for compliance, importance of exercise, use and side effects of insulin, importance of appointments with Clinical Nurse Specialist, importance of annual examinations with Opthalmology and Diabetic sick day rules with patient, but do not feel that she was listening to much as she was on her phone and very focused on the fact that she does not feel like anything has helped or will help her diabetes. She states that she is fully aware of potential complications and she declines to be given DM booklets - BP goal of <130/80 - LDL goal of <100 - HEMOGLOBIN A1C (POC) - CONSULT TO ENDOCRINOLOGY - CONSULT TO OPHTHALMOLOGY - INSULIN ASPART U-100 100 UNIT/ML SUBCUTANEOUS CARTRIDGE - INSULIN GLARGINE (U-100) 100 UNIT/ML (3 ML) SUBCUTANEOUS PEN - BLOOD SUGAR DIAGNOSTIC STRIPS 2. High blood sugar - ICD9: 790.29, ICD10: R73.9 - see above - HEMOGLOBIN A1C (POC) - GLUCOSE, BLOOD (POC) - CONSULT TO ENDOCRINOLOGY - CONSULT TO OPHTHALMOLOGY - INSULIN ASPART U-100 100 UNIT/ML SUBCUTANEOUS CARTRIDGE - INSULIN GLARGINE (U-100) 100 UNIT/ML (3 ML) SUBCUTANEOUS PEN - BLOOD SUGAR DIAGNOSTIC STRIPS 3. Blurred vision, bilateral - ICD9: 368.8, ICD10: H53.8 - stressed the need for exam today and that there is a potential for loss of eye sight, she laughed, but agreed to the 330 appointment we were able to make for her at [facility] where she prefers to be seen - CONSULT TO ENDOCRINOLOGY - CONSULT TO OPHTHALMOLOGY - BLOOD SUGAR DIAGNOSTIC STRIPS Danay Mendoza APRN.JENNY Mendoza APRN.JENNY 03/10/2018 1:33 PM Signed Continue metformin Start insulin before meals (novolog) Restart basaglar at night, but dose decreased Check blood sugars before meals and at bedtime and record them ER if blood sugars get higher or vision changes get worse Referring Provider: SELF [[id number]] Allergies As of Date: 03/10/2018 Noted Allergy Reaction PENICILLINS 10/28/2005 10 - Anaphylaxis PREDNISONE 10/13/2013 11 - Vomiting Comments: GI upset VICODIN (HYDROCODONE-ACETAMINOPHE*08/09/2017 8 - GI Upset Date Reviewed: 03/10/2018 Reviewed by: Lakshmi Palmer) SUZETTE Hurtado - Fully Assessed Reason for Visit: Diabetes [34] Reason For Visit History Recorded Primary Visit Diagnosis:Type 2 diabetes mellitus with diabetic neuropathy, with long-term current use of insulin ([facility]) [E11.40, Z79.4] Other Visit Diagnoses:High blood sugar [R73.9] Blurred vision, bilateral [H53.8] Order(s):HEMOGLOBIN A1C (POC) [8591164] Order #: [id number]. #:[id number] GLUCOSE, BLOOD (POC) [9176607] Order #: [id number] GLUCOSE, BLOOD (POC) [2132555] Order #: [id number]. #:[id number] CONSULT TO ENDOCRINOLOGY [9007] Order #: [id number]: 1 CONSULT TO OPHTHALMOLOGY [9073] Order #: [id number]: 1 Insulin Aspart (NOVOLOG) 100 unit/mL crtgInject 7 Units subcutaneously three times daily before meals.Disp: 5 EachRfl: 2 insulin glargine (BASAGLAR KWIKPEN U-100 INSULIN) 100 unit/mL (3 mL) inpnInject 21 Units subcutaneously daily at bedtime.Disp: 15 mLRfl: 5 blood sugar diagnostic (BLOOD GLUCOSE TEST) test stripTest blood sugar(s) 4 times daily. Dx: Type 2 DM - Uncontrolled E11.65 Insulin: YesDisp: 50 StripRfl: 11 Prescriptions as of 03/10/2018 Sig: METFORMIN 1,000 MG TABLET TAKE 1 TABLET BY MOUTH TWICE * GABAPENTIN 300 MG CAPSULE Take 1 capsule by mouth three* LEVONORGESTREL 20 MCG/24 HR (* Inserted in office INSULIN ASPART U-100 100 UNI* Inject 7 Units subcutaneously* INSULIN GLARGINE (U-100) 100 * Inject 21 Units subcutaneousl* BLOOD SUGAR DIAGNOSTIC STRIPS Test blood sugar(s) 4 times d* VICTOZA 3-ASAEL 0.6 MG/0.1 ML (* INJECT 1.8MG UNDER THE SKIN O* DICYCLOMINE 10 MG CAPSULE TAKE ONE CAPSULE BY MOUTH BEF* CHOLECALCIFEROL (VITAMIN D3) * Take 1 capsule by mouth once * GLIMEPIRIDE 4 MG TABLET TAKE TWO TABLETS BY MOUTH ONC* ATORVASTATIN 40 MG TABLET Take 1 tablet by mouth once d* ACETAMINOPHEN ER 650 MG TABLE* Take 1 tablet by mouth every * PEN NEEDLE, DIABETIC 31 GAUGE* Use as directed once daily wi* LANCETS Test blood sugar(s) 3- 4 times* BLOOD SUGAR DIAGNOSTIC STRIPS Test blood sugar(s) 3- 4 times* LISINOPRIL 10 MG-HYDROCHLOROT* TAKE ONE TABLET BY MOUTH EVER* ETODOLAC 400 MG TABLET TAKE ONE TABLET BY MOUTH 2 TI* BLOOD SUGAR DIAGNOSTIC STRIPS Test blood sugar(s) 2x daily.* OMEPRAZOLE 40 MG CAPSULE,IRASEMA* TAKE ONE CAPSULE BY MOUTH SAMIA* CYANOCOBALAMIN (VIT B-12) 1,0* Take 1 tablet by mouth once d* CALCIUM CARBONATE 333 MG-MAGN* Take 1 tablet by mouth once d* COMPOUNDED PRESCRIPTION OTC B12 100 mcg daily COMPOUNDED PRESCRIPTION OTC Calcium, magnesium , zinc* COMPOUNDED PRESCRIPTION OTC Tylenol for arthritis - 6* IRON ORAL Take by mouth. COMPOUNDED PRESCRIPTION KNEE HIGH COMPRESSION STOCKIN* LANCETS 28 GAUGE Test blood sugar(s) 2x daily.* Problem List As Of Date 03/10/2018 Noted Resolved COMMON MIGRAINE W/O MENTN INTRACT [G43.009] BIPOLAR DISORDER NOS [F31.9] Knee pain, acute [M25.569] INVALID FOR* More... Morbid obesity with BMI of 40.0-44.9, adult (HC*INVALID FOR* More... PTSD (post-traumatic stress disorder) [F43.10] INVALID FOR* Type 2 diabetes mellitus without complication (*INVALID FOR* Essential hypertension with goal blood pressure*INVALID FOR* Other instructions from your clinician: Continue metformin Start insulin before meals (novolog) Restart basaglar at night, but dose decreased Check blood sugars before meals and at bedtime and record them ER if blood sugars get higher or vision changes get worse Prescriptions ordered this encounter Disp Refills Start End INSULIN ASPART U-100 100 UNIT/ML HANSON* 5 Ea* 2 03/10/2018 Route: SUBCUTANEOUS Sig: Inject 7 Units subcutaneously three times daily before meals. INSULIN GLARGINE (U-100) 100 UNIT/ML* 15 mL 5 03/10/2018 Route: SUBCUTANEOUS Sig: Inject 21 Units subcutaneously daily at bedtime. BLOOD SUGAR DIAGNOSTIC STRIPS 50 S* 11 03/10/2018 Sig: Test blood sugar(s) 4 times daily. Dx: Type 2 DM - Uncontrolled E11.65 Insulin: Yes Medications Discontinued During This Encounter BASAGLAR KWIKPEN U-100 INSULIN 100 u* 15 mL 5 11/01/2017 03/10/2018 Sig: INJECT 40 UNITS SUBCUTANEOUSLY ONCE DAILY Disc: Reason for discontinue is not on file. Disposition: Return in about 4 weeks (around 04/07/2018) for PCP DM. Follow-up and Disposition History Recorded Letter [facility] [place] [address] TO WHOM IT MAY CONCERN: This is to confirm that Desiree Small had an appointment and was seen at the [facility] in the Department of Family Medicine Danay Mendoza CNP on 03/10/2018. Please excuse her from work. Sincerely yours, Danay Mendoza CNP Encounter Status:Closed by DANAY MENDOZA on 03/10/18 PROGRESS Observed: 03/10/2018 Status: COMPLETED Source: [place] 12:[address] [facility] REPOSITORY HNO ID: [id number] Author: Danay Mendoza Service: (none) Author Type: Nurse Practitioner Type: Progress Notes Filed: 03/10/2018 3:55 PM Note Text: 03/10/2018 Patient presents with: Diabetes SUBJECTIVE: This is a 42 year old that is here today for high blood sugars and blurred vision. She states that she was sent home from work because she was in a press and her vision became blurry. She states that this happened when she was diagnosed with DM. She is very argumentative during the whole visit. She is very upset that she was placed on victoza and didn't tolerate it. She feels that no one has ever listened to her. Attempted to look back at medications and confirm if she tolerated and she states that she does not know if she was taking any of them. She states multiple times that she knows everything that she needs to about DM with trying to educate or discuss topics related, but she also states that she does not know why she was on any medications. She states at one point that she is not taking any medications, then she states that she is only taking an anti inflammatory, metformin and gabapentin. She states that she will not be taking her BP medications or cholesterol medication because she does not feel that she needs them. She states that she knows that the victoza was making her sick, but feels that they all do, so she does not want to be on them. She also at one point said that her pharmacy does not give her all of the medications. When asked what she would like out of this visit today she states I don't know anything about what I need to take, but it needs to be something that will actually work and in an appropriate time DIABETES MELLITUS: Since our last visit she denies chest pain or dyspnea , numbness, tingling or pain in extremities, low sugar/hypoglycemic reactions, lightheadedness/dizziness and bowel changes/loose stools. + for excessive thirst and urination and nerve pain in addition to the blurred vision Follows a diabetic diet probably noncomplaint although I cannot elucidate specific history. She is not compliant with medication(s) due to side effects of stomach upset. She reports checking her glucose on a infrequent to not at all basis schedule with sugars in the fasting 400s range. Patient's last HgA1C was Hemoglobin A1C (%) Date Value 11/25/2017 11.2 08/05/2017 10.2 Hemoglobin A1C (POCT) (%) Date Value 03/10/2018 12.7 ) Complications of Diabetes include: peripheral neuropathy PAST MEDICAL HISTORY Diagnosis Date - Bipolar disorder, unspecified (HCC) - Migraine without aura, without mention of intractable migraine without mention of status migrainosus - Other psoriasis - Rash and other nonspecific skin eruption - Recovering alcoholic (HCC) - Substance abuse (HCC) ALLERGIES Penicillins; Prednisone; Vicodin [Hydrocodone-Acetaminophen] MEDICATIONS Current Outpatient Prescriptions: levonorgestrel (MIRENA) 20 mcg/24 hr (5 years) IUD Inserted in office VICTOZA 3-ASAEL 0.6 mg/0.1 mL (18 mg/3 mL) pnij INJECT 1.8MG UNDER THE SKIN ONCE DAILY dicyclomine (BENTYL) 10 mg capsule TAKE ONE CAPSULE BY MOUTH BEFORE MEALS AND AT BEDTIME NEEDED cholecalciferol, Vitamin D3, (VITAMIN D3) 50,000 unit cap capsule Take 1 capsule by mouth once each week. glimepiride (AMARYL) 4 mg tablet TAKE TWO TABLETS BY MOUTH ONCE DAILY IN THE MORNING PRIOR TO MEALS atorvastatin (LIPITOR) 40 mg tablet Take 1 tablet by mouth once daily. acetaminophen (TYLENOL ARTHRITIS PAIN) 650 mg CR tablet Take 1 tablet by mouth every 8 hours as needed. insulin needles, DISPOSABLE, (BD INSULIN PEN NEEDLE UF) 31 gauge x 5/16 ndle Use as directed once daily with insulin pen DM: yes Insulin: yes DX:E11.9 Lancets lancets Test blood sugar(s) 3-4 times daily. Dx: Type 2 DM - Controlled E11.9 Insulin: Yes blood sugar diagnostic (BLOOD GLUCOSE TEST) test strip Test blood sugar(s) 3-4 times daily. Dx: Type 2 DM - Controlled E11.9 Insulin: Yes metFORMIN (GLUCOPHAGE) 1,000 mg tablet TAKE 1 TABLET BY MOUTH TWICE DAILY WITH MEALS CHITRA AQUINO U-100 INSULIN 100 unit/mL (3 mL) inpn INJECT 40 UNITS SUBCUTANEOUSLY ONCE DAILY lisinopril-hydrochlorothiazide (PRINZIDE,ZESTORETIC) 10-12.5 mg per tablet TAKE ONE TABLET BY MOUTH EVERY DAY gabapentin (NEURONTIN) 300 mg capsule Take 1 capsule by mouth three times daily for 180 days. etodolac (LODINE) 400 mg tablet TAKE ONE TABLET BY MOUTH 2 TIMES A DAY blood sugar diagnostic (FREESTYLE LITE STRIPS) test strip Test blood sugar(s) 2x daily. Dx: E11.65. Insulin: No Omeprazole 40 mg capsule TAKE ONE CAPSULE BY MOUTH EVERY DAY cyanocobalamin (VITAMIN B-12) 1,000 mcg tab Take 1 tablet by mouth once daily. calcium carb-mag ox-zinc gluc 333-133-5 mg tab Take 1 tablet by mouth once daily COMPOUNDED PRESCRIPTION OTC B12 100 mcg daily COMPOUNDED PRESCRIPTION OTC Calcium, magnesium , zinc 500 mg - takes one 500 mg tablet in the morning and one 500 mg tablet in the evening COMPOUNDED PRESCRIPTION OTC Tylenol for arthritis - 650 mg tablet - takes two tablets in morning and 2 tablets at night FERROUS SULFATE (IRON ORAL) Take by mouth. Compression Knee Highs KNEE HIGH COMPRESSION STOCKINGS 30- 40 MM. DX: EDEMA. Bilateral leg swelling. lancets (FREESTYLE LANCETS) 28 gauge misc Test blood sugar(s) 2x daily. Dx: E11.65. Insulin: No No current facility-administered medications for this visit. Medications and allergies reviewed by this provider. SOCIAL HISTORY Social History Marital status: Spouse name: Years of education: Number of children: Social History Main Topics Smoking status: Former Smoker Packs/day: 0.00 Years: 0.00 Quit date: 03/08/2003 Smokeless tobacco: Never Used Alcohol use: No Comment: recovering alcohol Drug use: No Comment: past history [facility] [place] Sexual activity: Yes Partners with: Male control/protection: Tubal Ligation REVIEW OF SYSTEMS see HPI OBJECTIVE: BP 122/78 Pulse 93 Resp 20 Wt 105.2 kg (232 lb) SpO2 96% BMI 42.43 kg/m? . Vital signs reviewed by this provider. PHYSICAL EXAMINATION: General appearance: Well appearing, alert, in no acute distress, well-hydrated, well nourished. and Morbidly obese Skin: Skin color, texture, turgor normal, no suspicious rashes or lesions Unable to complete any further exam due to pt refusal to cooperate ASSESSMENT/PLAN: 1. Type 2 diabetes mellitus with diabetic neuropathy, with long-term current use of insulin ([facility]) - ICD9: 250.60, 357.2, V58.67, ICD10: E11.40, Z79.4 (primary diagnosis) uncontrolled Poor adherence to plan of care. The patient is new to me. - Blood glucose monitoring on a four times a day schedule - Ophthalmology referral for eval/management of diabetic eye changes - Referral to Endocrinology for transfer of care for DM management - Encouraged regular aerobic exercise and weight loss - Daily Asprin therapy recommended - Follow up in 1 month, sooner should any other issues arise. - Attempted to discuss diabetic education issues of intermodal customer service diabetic complications, hypoglycemic symptoms, hyperglycemic symptoms, diet, medications- side effects and need for compliance, importance of exercise, use and side effects of insulin, importance of appointments with Clinical Nurse Specialist, importance of annual examinations with Opthalmology and Diabetic sick day rules with patient, but do not feel that she was listening to much as she was on her phone and very focused on the fact that she does not feel like anything has helped or will help her diabetes. She states that she is fully aware of potential complications and she declines to be given DM booklets - BP goal of <130/80 - LDL goal of <100 - HEMOGLOBIN A1C (POC) - CONSULT TO ENDOCRINOLOGY - CONSULT TO OPHTHALMOLOGY - INSULIN ASPART U-100 100 UNIT/ML SUBCUTANEOUS CARTRIDGE - INSULIN GLARGINE (U-100) 100 UNIT/ML (3 ML) SUBCUTANEOUS PEN - BLOOD SUGAR DIAGNOSTIC STRIPS 2. High blood sugar - ICD9: 790.29, ICD10: R73.9 - see above - HEMOGLOBIN A1C (POC) - GLUCOSE, BLOOD (POC) - CONSULT TO ENDOCRINOLOGY - CONSULT TO OPHTHALMOLOGY - INSULIN ASPART U-100 100 UNIT/ML SUBCUTANEOUS CARTRIDGE - INSULIN GLARGINE (U-100) 100 UNIT/ML (3 ML) SUBCUTANEOUS PEN - BLOOD SUGAR DIAGNOSTIC STRIPS 3. Blurred vision, bilateral - ICD9: 368.8, ICD10: H53.8 - stressed the need for exam today and that there is a potential for loss of eye sight, she laughed, but agreed to the 330 appointment we were able to make for her at [facility] where she prefers to be seen - CONSULT TO ENDOCRINOLOGY - CONSULT TO OPHTHALMOLOGY - BLOOD SUGAR DIAGNOSTIC STRIPS Danay Mendoza APRN.[facility] EMERGENCY DEPARTMENT Observed: 02/12/2018 Status: F Source: [place] SUMMARY 11:24 PM [facility] [place] [facility] Medical Records Department [address] [place] [address] Emergency Department Summary 02/12/182013 MR#: [id number] Acct: [id number] Name: DESIREE SMLAL Rep #: [id number] : 1975 42 From: Bee Bryson MD PCP: Moon Horta MD Status: DEP ER - ER Visit Summary Date of Service: 02/12/18 Chief Complaint: Back pain, wrist pain History of Present Illness: The patient is a 42 F presents to the emergency department after mechanical fall. Patient states that about 10 days ago, she tripped over her dog. She fell striking the dorsum of her left wrist and fell forward with her legs over top of her. She states that he felt something pop in her low back. Since then, she has had intermittent shooting pain down her right leg. She denies any problems with bowel or bladder. She has been taking anti-inflammatories with little improvement. She did not strike her head. She denies loss of consciousness. Physical Examination: Afebrile, vitals unremarkable. Well- appearing female no acute distress. Head is normocephalic, atraumatic. Pupil's equal round reactive, extraocular muscles intact. Neck supple. Heart regular rate and rhythm. Lungs clear, chest nontender. Abdomen soft, nontender, nondistended. No pulsatile mass. Patient has paraspinal tenderness in the lumbar area, but no bony tenderness. Straight leg raise is negative bilaterally. 2+ symmetric lower extremity pulses. 2+ reflexes. No clonus. No weakness of dorsiflexion, plantar flexion, or extensor hallucis longus bilaterally. Test Results: [] Emergency Department Course and Treatment: The patient presents after mechanical fall. Her examination is relatively unremarkable. I did obtain plain films of her back and of her wrist. There is no evidence of acute fracture. She has no red flag symptoms. Patient be treated with 2 days of analgesics and antispasmodics. She will be discharged home. Treatment Plan: [] Disposition: Discharge Impression: 1. Lumbar strain status post fall 2. Left wrist sprain status post fall This note was generated with Udem[employer] dictation software. It may contain incorrect words, spelling, and punctuation that were not noted in review of the chart prior to signing ED Disposition - Plan for ED Patient: Disposition: Home or Assisted Living Chief Complaint: Fall Instructions: ED Mechanical Fall Prescriptions: RX: traMADol [Ultram] 50 mg PO Q6H PRN PRN 3 Days #8 tab PRN Reason: Pain Cyclobenzaprine [Flexeril] 10 mg PO TID PRN #20 tab PRN Reason: Muscle Spasm Referrals: Moon Horta MD [Primary Care Provider] - What to do if you have Problems For any increased pain, shortness of breath, bleeding, nausea or vomiting, chest pain, or any unexpected problems, contact your Primary Care Provider. Call [facility] ([phone]) or report to the closest Emergency Room. Call 911 if necessary. 02/12/18 8826 <Electronically signed by Bee Bryson MD> Date Bee Bryson MD Cosigner Signature (If Indicated): Date CC: Moon Horta MD LUMBAR SPINE 2 OR 3 Observed: 02/12/2018 Status: F Source: EQUINUNK VIEWS 8:13 PM [facility] [place] [facility] Imaging Services [address] [place] [address] Lumbar Spine 2 or 3 Views MR#: [id number] Acct: [id number] Name: DEISREE SMALL Rep #: [id number] : 1975 F 42 From: Sam Mcclure MD PCP: Moon Horta MD Status: DEP ER Study: Lumbar Spine 2 or 3 Views Date of Exam: 02/12/18 Exam# [id number] Ordering Dr: Bee Bryson MD STUDY: X-RAY - LUMBAR SPINE REASON FOR EXAM: Female, 42 years old. Patient fell about 10 days ago, low back pain mostly on the right side TECHNIQUE: 3 view(s) of the lumbar spine were obtained. COMPARISON: None FINDINGS: Normal lumbar lordosis. There is no substantial scoliosis. Grade 1 spondylolisthesis of L4-L5 is due to facet arthropathy. There is multilevel endplate spondylosis of the lumbar vertebrae. Normal disc space heights. There is no demonstrated fracture. The soft tissue structures are unremarkable. Cholecystectomy clips are present. Tubal ligation clips are present. RAD/Lumbar Spine 2 or 3 Views IMPRESSION: 1. No lumbar spine fracture. 2. Facet dominant degenerative changes, as above. Electronically Signed: Sam Mcclure MD at 23:50 EST , Service support , CC: Moon Horta MD; Bee Bryson MD Line Out Man: Signed WRIST MIN 3 VIEWS Observed: 02/12/2018 Status: F Source: EQU[place]K 8:13 PM [facility] [place] [facility] [place] [address] Wrist min 3 Views MR#: [id number] Acct: [id number] Name: DESIREE SMALL Rep #: [id number] : 1975 F 42 From: Sam Mcclure MD PCP: Moon Horta MD Status: DEP ER Study: Wrist min 3 Views Date of Exam: 02/12/18 Exam# [id number] Ordering Dr: Bee Bryson MD STUDY: X-RAY - LEFT WRIST REASON FOR EXAM: Female, 42 years old. Patient fell about 10 days ago, left wrist pain TECHNIQUE: 3 view(s) of the wrist were obtained. COMPARISON: None. FINDINGS: Normal visualized distal radius and ulna. Normal radiocarpal articulation. Normal distal radioulnar articulation. Normal carpal bones. Normal carpal articulations. Normal carpometacarpal articulation of the thumb. Normal second through fifth carpometacarpal articulations. Normal visualized metacarpal bones. The soft tissue structures are unremarkable. RAD/Wrist min 3 Views IMPRESSION: No fracture or malalignment. Electronically Signed: Sam Mcclure MD at 23:51 EST , Service support , CC: Moon Horta MD; Bee Bryson MD Line Out Man: Signed PROGRESS Observed: 01/10/2018 Status: COMPLETED Source: [place] 10:00 AM [facility] REPOSITORY HNO ID: [id number] Author: Lina August Service: (none) Author Type: Employment Office Clerk Type: Progress Notes Filed: 01/10/2018 10:02 AM Note Text: Dr. Horta wants patient opted out of the Care Gap Registry. Patient is non- complaint. This was discuss at the teamlet meeting. Lina August MA PROGRESS Observed: 01/03/2018 Status: COMPLETED Source: [place] 10:00 AM [facility] REPOSITORY HNO ID: [id number] Author: Lina August Service: (none) Author Type: Employment Office Clerk Type: Progress Notes Filed: 01/03/2018 10:01 AM Note Text: I have attempted to contact this patient by phone to return their call, schedule an appointment, discuss lab results, etc. Left message to call back. Lina August MA PROGRESS Observed: 12/29/2017 Status: COMPLETED Source: [place] 3:01 PM [facility] REPOSITORY HNO ID: [id number] Author: Lina August Service: (none) Author Type: Employment Office Clerk Type: Progress Notes Filed: 01/03/2018 10:01 AM Note Text: I have attempted to contact this patient by phone to return their call, schedule an appointment, discuss lab results, etc. Left message to call back. CNCO Observed: 12/28/2017 Status: COMPLETED Source: [place] 12:00 AM [facility] REPOSITORY Letter Text Desiree Small December 28, 2017 [facility] [address] [place], [place] [address] 12/28/2017 [facility]# [id number] Desiree Small [address] [facility] [address] Dear Ms. Small: We have been unsuccessful in reaching you by phone. Please call our office at for further instructions. Thank you. Sincerely, Family Practice PROGRESS Observed: 12/27/2017 Status: COMPLETED Source: [place] 10:00 AM [facility] REPOSITORY HNO ID: [id number] Author: Lina August Service: (none) Author Type: Employment Office Clerk Type: Progress Notes Filed: 01/03/2018 10:01 AM Note Text: I have attempted to contact this patient by phone to return their call, schedule an appointment, discuss lab results, etc. Left message to call back. PROGRESS Observed: 12/27/2017 Status: COMPLETED Source: [place] 9:43 AM [facility] REPOSITORY HNO ID: [id number] Author: Lina August Service: (none) Author Type: Employment Office Clerk Type: Progress Notes Filed: 01/03/2018 10:01 AM Note Text: PHMA TEAMLET DOCUMENTATION Provider Action/FYI: Patient needs appointment, needs labs ordered mammogram PSR Action/FYI: Schedule appointment with Em in Pharmacy Appointment with Dr. Horta or Kushal La, EYELET CUTTER Schedule appointment for mammogram Teamlet has identified patient by name and date of . Team: Keysha Field MA, Rehana Camacho MA, Lina August MA, RUBIO Hernandez, Dr. Moon Horta, ? Last Office Visit:12/21/2017 ? Next Office Visit: Visit date not found ? Last BP/Labs: Blood Pressure: Last 3 Encounter BP Readings: Date: BP: 08/09/2017 126/86 11/17/2016 110/68 08/19/2016 102/70 Lipids: Cholesterol, Total (mg/dL) Date Value 08/05/2017 167 07/22/2016 154 HDL Cholesterol (mg/dL) Date Value 08/05/2017 35 07/22/2016 35 LDL Cholesterol (mg/dL) Date Value 08/05/2017 74 07/22/2016 66 Triglyceride (mg/dL) Date Value 08/05/2017 290 07/22/2016 264 HGB A1C: Lab Results Component Value Date HBA1C 11.2 11/25/2017 HBA1C 10.2 08/05/2017 HBA1C 9.4 11/17/2016 TSH: TSH (uU/mL) Date Value 05/01/2016 1.480 03/05/2015 1.550 ) Care Gap: DM - Last HGBA1C is NOT under 9% Plan: ? Confirm PCP / Status ? Type of appointment needed: follow up ? Consultation Appointments: Clinical Pharmacy [facility] ? Labs, HM and Immunization: Labs: Mammogram Lina August MA CNPTOUTREACHRISTOPH Observed: 12/27/2017 Status: COMPLETED Source: [place] 12:00 AM [facility] REPOSITORY Patient Outreach (FAMPWS) DESIREE SMALL ([id number]) 1975 F Date Time Provider Department 12/27/17 LINA AUGUST (SUZETTE) FAMPWS During your visit today, we recorded the following information about you: Lina August MA 01/03/2018 10:01 AM Signed PHMA TEAMLET DOCUMENTATION Provider Action/FYI: Patient needs appointment, needs labs ordered mammogram PSR Action/FYI: Schedule appointment with Em in Pharmacy Appointment with Dr. Horta or Kushal La CNP Schedule appointment for mammogram Teamlet has identified patient by name and date of . Team: Keysha Field MA, Rehana Camacho MA, Lina August MA, RUBIO Hernandez, Dr. Moon Horta, ? Last Office Visit:12/21/2017 ? Next Office Visit: Visit date not found ? Last BP/Labs: Blood Pressure: Last 3 Encounter BP Readings: Date: BP: 08/09/2017 126/86 11/17/2016 110/68 08/19/2016 102/70 Lipids: Cholesterol, Total (mg/dL) Date Value 08/05/2017 167 07/22/2016 154 HDL Cholesterol (mg/dL) Date Value 08/05/2017 35 07/22/2016 35 LDL Cholesterol (mg/dL) Date Value 08/05/2017 74 07/22/2016 66 Triglyceride (mg/dL) Date Value 08/05/2017 290 07/22/2016 264 HGB A1C: Lab Results Component Value Date HBA1C 11.2 11/25/2017 HBA1C 10.2 08/05/2017 HBA1C 9.4 11/17/2016 TSH: TSH (uU/mL) Date Value 05/01/2016 1.480 03/05/2015 1.550 ) Care Gap: DM - Last HGBA1C is NOT under 9% Plan: ? Confirm PCP / Status ? Type of appointment needed: follow up ? Consultation Appointments: Clinical Pharmacy [facility]NA ? Labs, HM and Immunization: Labs: Mammogram SUZETTE López MA 01/03/2018 10:01 AM Signed I have attempted to contact this patient by phone to return their call, schedule an appointment, discuss lab results, etc. Left message to call back. Lina August MA 01/03/2018 10:01 AM Signed I have attempted to contact this patient by phone to return their call, schedule an appointment, discuss lab results, etc. Left message to call back. Lina August MA 01/03/2018 10:01 AM Signed I have attempted to contact this patient by phone to return their call, schedule an appointment, discuss lab results, etc. Left message to call back. SUZETTE López MA 01/10/2018 10:[address] Horta wants patient opted out of the Care Gap Registry. Patient is non- complaint. This was discuss at the teamlet meeting. Lina August MA Allergies As of Date: 12/27/2017 Noted Allergy Reaction PENICILLINS 10/28/2005 10 - Anaphylaxis PREDNISONE 10/13/2013 11 - Vomiting Comments: GI upset VICODIN (HYDROCODONE-ACETAMINOPHE*08/09/2017 8 - GI Upset Date Reviewed: 08/09/2017 Reviewed by: Priscilla ([facility]) SUZETTE Pacheco - Fully Assessed Reason for Visit: PHMA/Care Gap Outreach [3605] PHMA/Care Gap Outreach [3605] Cmt: Opted Out of Care Gap Reason For Visit History Recorded Prescriptions as of 12/27/2017 Sig: VICTOZA 2-ASAEL 0.6 MG/0.1 ML (* INJECT 1.8MG UNDER THE SKIN O* DICYCLOMINE 10 MG CAPSULE TAKE ONE CAPSULE BY MOUTH BEF* CHOLECALCIFEROL (VITAMIN D3) * Take 1 capsule by mouth once * GLIMEPIRIDE 4 MG TABLET TAKE TWO TABLETS BY MOUTH ONC* ATORVASTATIN 40 MG TABLET Take 1 tablet by mouth once d* ACETAMINOPHEN ER 650 MG TABLE* Take 1 tablet by mouth every * PEN NEEDLE, DIABETIC 31 GAUGE* Use as directed once daily wi* LANCETS Test blood sugar(s) 3- 4 times* BLOOD SUGAR DIAGNOSTIC STRIPS Test blood sugar(s) 3- 4 times* METFORMIN 1,000 MG TABLET TAKE 1 TABLET BY MOUTH TWICE * BASAGLAR KWIKPEN U-100 INSULI* INJECT 40 UNITS SUBCUTANEOUSL* LISINOPRIL 10 MG-HYDROCHLOROT* TAKE ONE TABLET BY MOUTH EVER* GABAPENTIN 300 MG CAPSULE Take 1 capsule by mouth three* ETODOLAC 400 MG TABLET TAKE ONE TABLET BY MOUTH 2 TI* BLOOD SUGAR DIAGNOSTIC STRIPS Test blood sugar(s) 2x daily.* OMEPRAZOLE 40 MG CAPSULE,IRASEMA* TAKE ONE CAPSULE BY MOUTH SAMIA* CYANOCOBALAMIN (VIT B-12) 1,0* Take 1 tablet by mouth once d* Patient not taking: Reported on 08/09/2017 CALCIUM CARBONATE 333 MG-MAGN* Take 1 tablet by mouth once d* COMPOUNDED PRESCRIPTION OTC B12 100 mcg daily Patient not taking: Reported on 08/09/2017 COMPOUNDED PRESCRIPTION OTC Calcium, magnesium , zinc* Patient not taking: Reported on 08/09/2017 COMPOUNDED PRESCRIPTION OTC Tylenol for arthritis - 6* Patient not taking: Reported on 08/09/2017 LEVONORGESTREL 20 MCG/24 HR (* Inserted in office IRON ORAL Take by mouth. COMPOUNDED PRESCRIPTION KNEE HIGH COMPRESSION STOCKIN* LANCETS 28 GAUGE Test blood sugar(s) 2x daily.* Problem List As Of Date 12/27/2017 Noted Resolved COMMON MIGRAINE W/O MENTN INTRACT [G43.009] BIPOLAR DISORDER NOS [F31.9] Knee pain, acute [M25.569] INVALID FOR* More... Morbid obesity with BMI of 40.0-44.9, adult (HC*INVALID FOR* More... PTSD (post-traumatic stress disorder) [F43.10] INVALID FOR* Type 2 diabetes mellitus without complication (*INVALID FOR* Essential hypertension with goal blood pressure*INVALID FOR* Encounter Status:Closed by LINA AUGUST on 01/03/18 CONSULTATION Observed: 11/28/2017 Status: F Source: [place] 4:45 PM [facility] [place] [facility] Medical Records Department [address] [place] [address] Consultation 11/21/17 0944 MR#: [id number] Acct: [id number] Name: DESIREE SMALL Rep #: [id number] : 1975 42 From: Destini Abdul MD PCP: Amado SANTIAGO,Moon Status: DIS KATHI Y Location: [place] [address] Problem List (1) Status migrainosus Status: Acute Reason for Consult Date of Consultation: 11/21/17 Reason for Consultation: Headache, dizziness History of Present Illness: The patient is a 42 year old CF with PMH HTN, DM, Migraine, morbid obesity admitted with BRADFORD. Per patient she started having BRADFORD yesterday (11/20/17) which was occipital, severe, with photophobia, visual blurriness, nausea and dizziness. BRADFORD still continues per patient and is about 5/10 intensity. Per patient she has h/o migraines, was on Topamax for the same but has been off of Topamax for the past few years, did not have migraine BRADFORD for atleast 4-5 yrs per patient unless she started having BRADFORD yesterday. Denies any speech disturbances, focal motor weakness, sensory loss, confusion, or fever. [] Past Medical History Past Medical History (Chronic Problems): Chronic Problems HTN (hypertension) (Chronic) Migraine (Chronic) Allergies Penicillins Allergy (Verified 11/20/17 15:08) Hives venom-honey bee [bee venom (honey bee)] Allergy (Verified 11/20/17 15:08) Anaphylaxis Home Medications: Ambulatory Orders Medication Instructions Recorded Insulin Glargine,Hum.rec.anlog 40 unit SQ QHS 11/20/17 [Basaglar Kwikpen U-100] Surgical History: noncontributory, - - Cholecystectomy, ectopic ; tubal ligation. Lives: With Family Smoking Status: Former smoker Alcohol: Occasional Drugs: None - *Family History Maternal History Items: Diabetes, Hypertension, No pertinent history Review of Systems Constitutional: Reports: - - complete ROS negative except as documented in HPI Patient Problems: Active and Suspected Problems Diabetes (Acute) Headache (Acute) Migraine (Acute) Status migrainosus (Acute) - Physical Exam General: Alert HEENT: Normocephalic Neck: Supple Lungs: Normal air movement Cardiovascular: Normal S1, Normal S2 Abdomen: Bowel Sounds Present Extremities: No cyanosis Neurological: - - consious, alert, AoAx3, CN 2-12 grossly intact, power 5/5 in all 4 extremities, no sensory loss, no cerebellar signs, Reflexes + B/L B/S/T/K/A, gait deferred, fundus not visualized, patient has photophobia Psych/Mental Status: Normal Affect Vital Signs Temp Pulse Resp BP Pulse Ox 97.8 F 89 15 133/86 H 95 11/21/17 08:20 11/21/17 08:20 11/21/17 08:20 11/21/17 08:20 11/21/17 09:00 Oxygen Delivery Method Room Air Body Mass Index (BMI) 46.3 Intake and Output for Last 24 Hours Intake Total 100 / 100 Balance 100 / 100 Laboratory Tests Past 24 Hrs PT 13.2 INR 1.0 Sodium 140 Potassium 4.2 Chloride 103 Carbon Dioxide 28.0 PT INR Sodium Potassium Chloride Carbon Dioxide Anion Gap BUN Creatinine Estim Creat Clear Calc Est GFR (MDRD) Af Amer POC Glucose POC Glucose 187 H 241 H Assessment/Plan All Active Problems Diabetes (Acute) Headache (Acute) Migraine (Acute) Status migrainosus (Acute) GERD (gastroesophageal reflux disease) (Acute) The patient is a 42 year old CF with PMH HTN, DM, Migraine, morbid obesity admitted with BRADFORD. Per patient she started having BRADFORD yesterday (11/20/17) which was occipital, severe, with photophobia, visual blurriness, nausea and dizziness. BRADFORD still continues per patient and is about 5/10 intensity. Per patient she has h/o migraines, was on Topamax for the same but has been off of Topamax for the past few years, did not have migraine BRADFORD for atleast 4-5 yrs per patient unless she started having BRADFORD yesterday. Denies any speech disturbances, focal motor weakness, sensory loss, confusion, or fever. CTA head/neck reported to show right vert stenosis vs occlusion Impression Likely Status Migrainosus Plan -On ASA and Lipitor. Started by hospitalist. Bleeding risks discussed. -Check MRI brain w/o contrast -Recommend Depakote 1 g IV BID for 24 hrs -Recommend Magnesium Sulphate 1 g iv once -Will avoid Decadron due to uncontrolled DM- Hba1c 11.7, needs endocrinology consult -Recommend Toradol 30 mg IV q 6 hrly PRN BRADFORD and Compazine prn -Check ESR -GI/DVT prophylaxis -PT/OT -Fall precautions -Further medical management per primary team. -Follow up with Neurology as outpatient in 4-6 weeks. -Please call with questions if any -Thank you for allowing us to participate in patient's care and management I spent 60 minutes taking history, doing physical examination, reviewing medical records, coordinating care and counseling the patient. Code Visit Inpatient E AND M: [id number] Init Hosp L3 11/28/17 1645 <Electronically signed by Destini Abdul MD> Date Destini Abdul MD Cosigner Signature (if applicable): Date CC: Carlos Abdul MD; Moon Horta MD Signed ALBUMIN/CREAT RATIO Collected: 11/25/2017 Status: F Source: [place] 10:[address] [facility] REPOSITORY TYPE CODE TESTS RESULT OUT OF REFERENCE UNITS RANGE LAB UCRR 20-300 mg/dL 53.8 Creatinine,Ur ine,Ran LAB UALBR 0.0-23.0 mg/L <12.0 Albumin Urine Random LAB UALBCR 0-30 mg/g Not Albumin/Creat calculated Ratio Performed By: #### UACR #### [facility] [address] [place], [place] [address] COMP METABOLIC PANEL Collected: 11/25/2017 Status: F Source: [place] 10:[address] [facility] REPOSITORY TYPE CODE TESTS RESULT OUT OF REFERENCE UNITS RANGE LAB TP 6.3-8.0 g/dL Protein, Total 6.9 LAB ALB 3.9-4.9 g/dL Albumin 3.9 LAB CA 8.5-10.2 mg/dL Calcium, Total 9.1 LAB TBIL 0.2-1.3 mg/dL Bilirubin, Total 0.3 LAB ALKP 32-117 U/L Alkaline Phosphatase 96 LAB AST 13-35 U/L AST 25 LAB GLU 74-99 mg/dL Glucose High 279 Result Comment: The [place] Diabetes Association (ADA) provides guidance for cutoff values for fasting glucose and random glucose. The ADA defines fasting as no caloric intake for at least 8 hours. Fas ting plasma glucose results between 100 to 125 mg/dL indicate increased risk for diabetes (prediabetes). Fasting plasma glucose results greater than or equal to 126 mg/dL meet the criteria for diagnosis of diabetes. In the absence of unequivocal hyperglycemia, results should be confirmed by repeat testing. In a patient with classic symptoms of hyperglycemia or hyperglycemic crisis, random plasma glucose results greater than or equal to 200 mg/dL meet the criteria for diagnosis of diabetes. Reference: Standards of Medical Care in Diabetes 2016, [place] Diabetes Association. Diabetes Care. 2016.39(Suppl 1). LAB BUN 7-21 mg/dL BUN 9 LAB CRET 0.58-0.96 mg/dL Creatinine 0.59 LAB NA 136-144 mmol/L Sodium Low 134 LAB K 3.7-5.1 mmol/L Potassium 4.2 LAB CL 97-105 mmol/L Chloride Low 94 LAB CO2 22-30 mmol/L CO2 26 LAB AGAP 9-18 mmol/L Anion Gap 14 LAB ALT 7-38 U/L ALT 31 LAB GFRAA eGFR- Amer. >60 LAB GFRNAA . eGFR-All Other Races >60 Result Comment: eGFR (Estimated GFR) Units of measure: mL/min/1.73 meters squared eGFR is derived from the reexpressed MDRD Study equation using the following parameters: serum creatinine, age, gender and race. The creatinine assay has been calibrated to be traceable to IDMS. An eGFR <60 mL/min/1.73m2 for >3 months is consistent with chronic kidney disease. Refer to KDOQI guidelines for clinical interpretation. In patients with unstable renal function, e.g. those with acute kidney injury, the eGFR may not accurately reflect actual GFR. Performed By: #### CMP, HBA1C #### [facility] [address] [place], [place] [address] HEMOGLOBIN A1C Collected: 11/25/2017 Status: F Source: [place] 10:[address] [facility] REPOSITORY TYPE CODE TESTS RESULT OUT OF REFERENCE UNITS RANGE LAB HGBA1C 4.3-5.6 % High Hemoglobin A1c 11.2 LAB HBA0 mg/dL Est. Average Glucose 275 Result Comment: eAG: (Estimated average glucose) is a calculated value from HgbA1c and is training representative of the average blood glucose level in the last 2-3 month period. Performed By: #### CMP, HBA1C #### [facility] [employer] [address] [place], [place] [address] DISCHARGE SUMMARY Observed: 11/22/2017 Status: F Source: [place] 6:49 PM [facility] [place] [facility] Medical Records Department [address] [place] [address] Discharge Summary 11/22/17 0950 MR#: [id number] Acct: [id number] Name: DESIREE SMALL Rep #: [id number] : 1975 42 From: Desirae FINNEYC PCP: Moon Horta MD Status: DIS KATHI Y Location: [place] [id number] <Desirae Mora - Last Filed: 11/22/17 09:56> Discharge Date and Diagnosis Date of Admission: 11/20/17 Date of Discharge: 11/22/17 - Primary Discharge Diagnosis Active and Suspected Problems 1. Status migrainosus 2. Uncontrolled type 2 diabetes mellitus 3. Hyperlipidemia - Secondary Discharge Diagnosis Chronic Problems HTN (hypertension) (Chronic) Migraine (Chronic) GERD Hospital Course and Treatment Imaging Results: Diagnostic Data Head CTA 11/20/17 18:00 IMPRESSION: Normal [place] without a demonstrated aneurysm or hemodynamically significant stenosis. Electronically Signed: Bishop Vargas MD at 19:12 EDT , Service support , Neck CTA 11/20/17 18:00 IMPRESSION: Normal bilateral cervical carotid. There is either stenotic narrowing, slow flow, or occlusion of the distal right vertebral artery. Normal left Vertebral artery. ALL ABOVE CRITERIA BY NASCET. Electronically Signed: Bishop Vargas MD at 19:13 EDT , Service support , Brain MRI 11/21/17 00:15 IMPRESSION: 1. No evidence of acute intracranial bleed, mass or ischemia. 2. Right maxillary sinus opacification fluid layering, clinically correlate for patient's symptomology. Electronically Signed: Hugo Otto DO at 12:17 EDT , Service support , Dr. Abdul- Neurology Operations: None Procedures: None Summary of Care Provided: The patient is a 42 year old F admitted 11/20/2017 due to headache and vertigo. She has a past medical history of hypertension, hyperlipidemia, poorly controlled type 2 diabetes mellitus, GERD, history of migraines. 1. Status migrainosus-acute CVA ruled out. Continue aspirin, statin given risk factors. Neurology consulted during admission. Started on Depakote 1 g IV twice daily for 24 hours. Mag sulfate 1 g IV 1. Toradol 30 mg IV every 6 as needed. ESR 9. Headache completely resolved. Follow up with neurology in 4-6 weeks. If patient has recurrent migraines, further prophylactic medications can be discussed with neurology as outpatient. MRI of brain without evidence of intracranial bleed, mass or ischemia. Next CTA showed normal bilateral cervical carotids. Right vertebral artery with either stenotic narrowing, slow flow or occlusion of the distal right vertebral artery. Neurology suspects this is an old finding. 2. Uncontrolled type 2 diabetes mellitus-hemoglobin A1c 11.7%. Patient reports her glucose has been difficult to control. Continue long-acting regimen. Patient on Victoza at home as well. Home metformin regimen increased to 1000 mg twice daily. Recommend follow-up with endocrinology in 1-2 weeks. 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 3. Hypertension-stable, continue home lisinopril regimen. 4. Hyperlipidemia-initiated on statin. 5. GERD-continue PPI. 6. Morbid obesity-encourage Dilantin medications. General: Alert, Oriented x3, Cooperative, No apparent distress HEENT: Atraumatic, PERRLA, EOMI, Normocephalic Neck: Supple, No JVD, Negative Carotid Bruits Lungs: Clear to auscultation, Normal air movement Cardiovascular: Regular rate, Regular Rhythm, Normal S1, Normal S2, No murmurs Abdomen: Bowel Sounds Present, Soft, Non Tender, Non-Distended, Obese Extremities: No clubbing, No cyanosis, No edema, Capillary Refill Less than 3 Seconds Skin: No rashes, No breakdown Musculoskeletal: No Tenderness to Palpation of Joints or Extremities Neurological: Cranial nerves II-XII grossly intact, Neuro grossly intact Psych/Mental Status: Normal Affect, Appropriate Patient seen exam prior to discharge. Physical assessment as noted above. Patient stable for discharge home with follow-up recommendations as noted above. This patient was seen by OTILIO Gannon under the supervision of Dr. Yanez. Discharge Diet: Low fat/ Low Cholesterol, 1800 Calorie Control Diet, Carb Control Diet Discharge Activity: Return to Normal Activity Call your doctor if you observe: Shortness of breath, Dizziness, Fainting spells, Chest pain Home Medications: Medications to take at Discharge Insulin Glargine,Hum.rec.anlog [Basaglar Kwikpen U-100] 40 unit SQ QHS 11/20/17 Liraglutide [Victoza] 1.8 mg SQ QHS 11/20/17 Lisinopril [Zestril] 20 mg PO QHS 11/20/17 Omeprazole 40 mg PO QHS 11/20/17 Aspirin [Aspirin, Baby] 81 mg PO DAILY@0800 #30 tab.chew 11/22/17 Atorvastatin Calcium [Lipitor] 40 mg PO QHS #30 tab 11/22/17 Metformin HCl [Glucophage] 1,000 mg PO BIDCM #60 tab 11/22/17 Following Prescrptions Were Given to Patient: Aspirin [Aspirin, Baby] 81 mg PO DAILY@0800 #30 tab.chew Atorvastatin Calcium [Lipitor] 40 mg PO QHS #30 tab Metformin HCl [Glucophage] 1,000 mg PO BIDCM #60 tab Primary Care Physician: Moon Horta MD [Primary Care Provider] - Please follow up with your Primary Care Physician in: 1 Week Please Follow Up With: Endocrinology - Diabetes management When: 1-2 Weeks Please Follow Up With: Destini Abdul MD - Neurology When: 4-6 Weeks Disposition: Home Minutes spent on discharge:: 35 Patient Condition:: Stable Medical Necessity - Tobacco Use Smoking Status: Former smoker Meaningful Use Info Meaningful Use Diagnoses (Choose all that apply): None applicable <Evelia Yanez - Last Filed: 11/22/17 18:48> Discharge Date and Diagnosis - Primary Discharge Diagnosis Evaluated independently and discussed with Desirae CEVALLOS and agree with findings and assessment and plan Patient stable for discharge - Secondary Discharge Diagnosis Chronic Problems HTN (hypertension) (Chronic) Migraine (Chronic) Hospital Course and Treatment Summary of Care Provided: The patient is a 42 year old F [] 11/22/17956 <Electronically signed by Desirae FINNEYC> Date Desirae FINNEYC 11/22/17 184<Electronically signed by Evelia Yanez MD> Cosigner Signature (if applicable): Date Evelia Yanez MD CC: BEARINGIZER-Adryan Mora; Evelia Yanez M.D.; Moon Horta MD Signed DISCHARGE INSTRUCTION Observed: 11/22/2017 Status: F Source: CHAO 9:50 AM [facility] [place] [facility] Medical Records Department [address] [place] [address] Instructions for Home/Discharge Instructions 11/22/1747 MR#: [id number] Acct: [id number] Name: DESIREE SMALL Rep #: [id number] : 1975 42 From: Desirae FINNEYC PCP: Moon Horta MD Status: ADM KATHI - Discharge Diagnoses Current Active Problems: Current Active and Chronic Problems HTN (hypertension) (Chronic) Diabetes (Acute) Headache (Acute) Migraine (Acute) Status migrainosus (Acute) You will use the following diet at home:: Calorie/Carbohydrate Controlled (specify 1200, 1400, etc) Discharge Activity: Return to Normal Activity Call your doctor if you observe: Shortness of breath, Dizziness, Fainting spells, Chest pain Allergies/Adverse Reactions: Allergies Penicillins Allergy (Verified 11/20/17 15:08) Hives venom-honey bee [bee venom (honey bee)] Allergy (Verified 11/20/17 15:08) Anaphylaxis Medications to take at Discharge Insulin Glargine,Hum.rec.anlog [Basaglar Kwikpen U-100] 40 unit SQ QHS 11/20/17 Liraglutide [Victoza] 1.8 mg SQ QHS 11/20/17 Lisinopril [Zestril] 20 mg PO QHS 11/20/17 Omeprazole 40 mg PO QHS 11/20/17 Aspirin [Aspirin, Baby] 81 mg PO DAILY@0800 #30 tab.chew 11/22/17 Atorvastatin Calcium [Lipitor] 40 mg PO QHS #30 tab 11/22/17 Metformin HCl [Glucophage] 1,000 mg PO BIDCM #60 tab 11/22/17 The following prescriptions were given: Aspirin [Aspirin, Baby] 81 mg PO DAILY@0800 #30 tab.chew Atorvastatin Calcium [Lipitor] 40 mg PO QHS #30 tab Metformin HCl [Glucophage] 1,000 mg PO BIDCM #60 tab Primary Care Physician: Moon Horta MD [Primary Care Provider] - Please follow up with your Primary Care Physician in: 1 Week Test Results: Test results from this visit will be discussed in further detail at your follow-up appointment, if applicable. Please Follow Up With: Endocrinology - Diabetes management When: 1-2 Weeks Please Follow Up With: Destini Abdul MD - Neurology When: 4-6 Weeks Proposed Discharge Date: 11/22/17 11/22/17949 <Electronically signed by Desirae YAÑEZ> Date Desirae YAÑEZ CC: Carlos Abdul MD; Moon Horta MD BEDSIDE GLUCOSE Collected: 11/22/2017 Status: F Source: CHAO 6:45 AM [facility] [place] TYPE CODE TESTS RESULT OUT OF REFERENCE UNITS RANGE LAB L501.080 70-110 mg/dL High BEDSIDE GLU 256 Result Comment: MANAGEMENT OF PATIENT CARE PER NURSING PROTOCOL Performed By: #### L501.080 #### [facility] Laboratory Point of Care [address] [place], [place] [id number] CBC-COMPLETE BLOOD CNT Collected: 11/22/2017 Status: F Source: CHAO NO DIFF 5:30 AM [facility] [place] TYPE CODE TESTS RESULT OUT OF RANGE REFERENCE UNITS LAB L100.1000 4.4-11.0 K/mm3 Normal WBC 5.6 LAB L100.1200 4.2-5.4 M/mm3 Normal RBC 4.32 LAB L100.1300 12.0-15.0 g/dl Normal HGB 12.9 LAB L100.1400 37-47 % Normal HCT 39.6 LAB L100.1500 81-99 fL Normal MCV 91.7 LAB L100.1600 27.0-32.0 pg Normal MCH 29.9 LAB L100.1700 32-36 g/gl Normal MCHC 32.6 LAB L100.1810 11.6-14.6 % Normal RDW CV 12.1 LAB L100.1820 35.1-43.9 fl Normal RDW SD 39.9 LAB L100.1900 150-450 K/mm3 Normal PLT 186 LAB L100.2000 6.2-12.0 fl Normal MPV 11.5 Performed By: #### L100.0500 #### [facility] [address] [place], [place], [address] BEDSIDE GLUCOSE Collected: 11/21/2017 Status: F Source: CHAO 9:01 PM [facility] [place] TYPE CODE TESTS RESULT OUT OF REFERENCE UNITS RANGE LAB L501.080 70-110 mg/dL High BEDSIDE GLU 254 Result Comment: MANAGEMENT OF PATIENT CARE PER NURSING PROTOCOL Performed By: #### L501.080 #### [facility] Point of Care [address] [place], [place] [id number] BEDSIDE GLUCOSE Collected: 11/21/2017 Status: F Source: CHAO 4:36 PM [facility] [place] TYPE CODE TESTS RESULT OUT OF REFERENCE UNITS RANGE LAB L501.080 70-110 mg/dL High BEDSIDE GLU 287 Result Comment: MANAGEMENT OF PATIENT CARE PER NURSING PROTOCOL Performed By: #### L501.080 #### [facility] Point of Care [address] [place] [address] BEDSIDE GLUCOSE Collected: 11/21/2017 Status: F Source: CHAO 12:50 PM [facility] [place] TYPE CODE TESTS RESULT OUT OF REFERENCE UNITS RANGE LAB L501.080 70-110 mg/dL High BEDSIDE GLU 206 Result Comment: MANAGEMENT OF PATIENT CARE PER NURSING PROTOCOL Performed By: #### L501.080 #### [facility] Point of Care [address] [place] [address] BEDSIDE GLUCOSE Collected: 11/21/2017 Status: F Source: CHAO 6:49 AM [facility] [place] TYPE CODE TESTS RESULT OUT OF REFERENCE UNITS RANGE LAB L501.080 70-110 mg/dL High BEDSIDE GLU 187 Result Comment: MANAGEMENT OF PATIENT CARE PER NURSING PROTOCOL Performed By: #### L501.080 #### [facility] Point of Care [address] [place] [address] BASIC METABOLIC Collected: 11/21/2017 Status: F Source: CHAO PROFILE (BMP) 5:30 AM [facility] [place] TYPE CODE TESTS RESULT OUT OF RANGE REFERENCE UNITS LAB L501.0100 74-106 mg/dL High GLU 200 Result Comment: Glucose result greater than or equal to 200 mg/dL suggests DIABETES MELLITUS per A.D.A. criteria. Please note revised GLUCOSE reference range effective 2017. LAB L501.1000 7-18 mg/dL Normal BUN 9 LAB L501.1100 0.55-1.02 mg/dL Normal CREAT,SERUM 0.68 Result Comment: The validity of the calculated GFR AND GFRAA in patients over 70 years has not been determined. Clinical correlation is essential. LAB L501.1110 >60 mL/min Normal EST GFR 102 Result Comment: Non- GFR Calc LAB L501.1115 >60 mL/min Normal EST GFR - AA 123 Result Comment: GFR Calc LAB L501.1255 ml/min Normal Estimated CRCL 86.98 LAB L501.1300 10-20 RATIO Normal BUN/CRE 13.2 LAB L501.2200 8.5-10 mg/dL Low .1 CA 8.1 LAB L501.5300 136-14 mmol/L Normal 5 NA 140 LAB L501.5600 3.5-5. mmol/L Normal 1 K 4.2 LAB L501.5900 98-107 mmol/L Normal CL 103 LAB L501.6100 21.0-3 mmol/L Normal 2.0 CO2 28.0 LAB L501.6200 5-15 Normal GAP 9 Performed By: #### L500.2500, L500.4100 #### [facility] [address] [facility] [place], [place], [id number] LIPID PROFILE Collected: 11/21/2017 Status: F Source: EQUINUNK 5:30 AM [facility] [place] TYPE CODE TESTS RESULT OUT OF RANGE REFERENCE UNITS LAB L501.4900 200 mg/dL Normal CHOL 168 Result Comment: <200 mg/dL Desirable 200-240 mg/dL Borderline >240 mg/dL High Risk LAB L501.5000 mg/dL High TRIG 233 Result Comment: The drugs N-Acetylcysteine and Metamizole may falsely depress this assay. Serum Triglycerides Reference Interval Normal <150 mg/dL Borderline high 150 - 199 mg/dL High 200 - 499 mg/dL Very High > or = 500 mg/dL LAB L501.6400 mg/dL Low HDL 31 Result Comment: The drugs N-Acetylcysteine and Metamizole may falsely depress this assay. Reference Range HDL <40 mg/dL Low HDL Cholesterol HDL >or= 60 mg/dL High HDL Cholesterol LAB L501.6500 0-130 mg/dL Normal LDL 90 LAB L501.6600 5-40 mg/dL High VLDL 47 Performed By: #### L500.2500, L500.4100 #### [facility] [address] [place], [place], [id number] PROTHROMBIN TIME W/INR Collected: 11/21/2017 Status: F Source: EQUINUNK 5:30 AM [facility] [place] TYPE CODE TESTS RESULT OUT OF RANGE REFERENCE UNITS LAB L300.4150 11.7-14.9 SECONDS Normal PROTIME 13.2 LAB L300.4200 Normal INR 1.0 Performed By: #### L300.3900 #### [facility] [address] [facility], [address] HEMOGLOBIN A1C Collected: 11/21/2017 Status: F Source: EQUINUNK 5:30 AM [facility] [place] TYPE CODE TESTS RESULT OUT OF RANGE REFERENCE UNITS LAB L501.9985 4.2-6.3 % High HGB A1C 11.7 Performed By: #### L501.9985 #### [facility] [address] [facility] [place], [address] ERYTHROCYTE SED RATE Collected: 11/21/2017 Status: F Source: EQUINUNK 5:30 AM [facility] [place] TYPE CODE TESTS RESULT OUT OF RANGE REFERENCE UNITS LAB L102.0000 0-20 mm/hr Normal SED RATE 9 Performed By: #### L101.9900 #### [facility] [address] [place], [address] HISTORY AND PHYSICAL Observed: 11/21/2017 Status: F Source: EQUINUNK EXAM 2:24 AM [facility] [place] [facility] Medical Records Department [address] [place] [address] History and Physical 11/20/17 2101 MR#: [id number] Acct: [id number] Name: DESIREE SMALL Rep #: [id number] : 1975 42 From: Rajendra Enriquez MD PCP: Amado SANTIAGO,Moon Status: ADM KATHI Y Location: [place] [address] Problem List (1) HTN (hypertension) Status: Chronic (2) Diabetes Status: Acute (3) Headache Status: Acute (4) Migraine Status: Acute History of Present Illness Date of Admission: 11/20/17 Chief Complaint: Headache and vertigo x 1 day. The patient is a 42 year old F with a significant history of hypertension, diabetes and migraine who presents with sudden onset severe occipital headache. Associated with symptoms is nausea, vertigo, weakness and photophobia. CTA neck showed either stenotic narrowing, slow flow or occlusion of the distal right vertebral artery. Per ED doctors conversation with Dr. Abdul this finding may be acute or chronic. ED doctor reported that Dr. Abdul suggested an MRI head for further investigation. Past Medical History Past Medical History (Chronic Problems): Chronic Problems HTN (hypertension) (Chronic) Migraine (Chronic) Allergies Penicillins Allergy (Verified 11/20/17 15:08) Hives venom-honey bee [bee venom (honey bee)] Allergy (Verified 11/20/17 15:08) Anaphylaxis Home Medications: Ambulatory Orders Medication Instructions Recorded Insulin Glargine,Hum.rec.anlog 40 unit SQ QHS 11/20/17 [Basaglar Kwikpen U-100] Surgical History: noncontributory, - - Cholecystectomy, ectopic ; tubal ligation. Lives: With Family Smoking Status: Former smoker Alcohol: Occasional - *Family History Maternal History Items: Diabetes, Hypertension, No pertinent history Review of Systems Constitutional: Reports: Weakness HEENT: Reports: Head Aches. Denies: Sinus Congestion, Sinus Drainage Cardiovascular: Denies: Chest Pain, Palpitations Respiratory: Denies: Cough, Shortness of breath at rest, Sputum production Gastrointestinal: Reports: Nausea. Denies: Abdominal Pain, Vomiting Genitourinary: Denies: Dysuria Musculoskeletal: Denies: Joint Pain, Joint Tenderness Skin: Denies: Rash, Wounds Neurological: Denies: Numbness, Tingling, Focal weakness Psychiatric: Denies: Anxiety, Depression, Homicidal Ideations, Suicidal Ideations Hematologic/ Lymphatic: Denies: Easy Bruising, Easy Bleeding VTE Information - Inpt Only VTE Present on Admission: No VTE Mechan Device Prophylaxis: None VTE Pharm Prophylaxis ordered?: Yes Patient Problems: Active and Suspected Problems Diabetes (Acute) Headache (Acute) Migraine (Acute) - Physical Exam General: Alert, Oriented x3, Cooperative HEENT: Atraumatic, PERRLA, EOMI, Normocephalic Neck: Supple, No JVD, Negative Carotid Bruits Lungs: Clear to auscultation, Normal air movement Cardiovascular: Regular rate, No murmurs Abdomen: Bowel Sounds Present, Soft, Non Tender Extremities: No edema, Capillary Refill Less than 3 Seconds Skin: No rashes, No breakdown Musculoskeletal: No Tenderness to Palpation of Joints or Extremities Neurological: Cranial nerves II-XII grossly intact Psych/Mental Status: Normal Affect, Appropriate Vital Signs Temp Pulse Resp BP Pulse Ox 97.6 F L 111 H 16 145/90 H 97 11/20/17 15:06 11/20/17 15:06 11/20/17 19:00 11/20/17 15:06 11/20/17 19:00 Oxygen Delivery Method Room Air Weight: 117.934 kg Body Mass Index (BMI) 47.5 Finger Stick Blood Glucose 305 Laboratory Tests Past 24 Hrs Sodium 135 L Potassium 3.5 Chloride 99 Carbon Dioxide 26.0 Assessment/Plan All Active Problems Diabetes (Acute) Headache (Acute) Migraine (Acute) GERD (gastroesophageal reflux disease) (Acute) The patient is a 42 year old F with a significant history of hypertension, diabetes and migraine who presents with sudden onset severe occipital headache and with associated symptoms of nausea, vertigo, weakness and photophobia; and radiographic findings of either stenotic narrowing, slow flow or occlusion of the distal right vertebral artery. Headache and vertigo Differential diagnosis include a complex migraine CVA or other. Patient received Benadryl, Toradol, and Reglan at emergency department. Reglan and Toradol as needed continued. Stroke protocol with [facility]. Permissive hypertension for 24 hours Aspirin and high intensity statin started. Fasting lipids and hemoglobin A1c level ordered. We will hold off echo for now pending MRI. Neurology consulted. Hypertension Blood pressure fairly controlled at the time of admission. Hold antihypertensive medications Labetalol as needed for systolic blood pressure more than 220 or diastolic blood pressure more than 120. Diabetes Blood glucose not daily range at the time of admission. Basal and correction scale insulin ordered. Fingerstick blood sugars q. before meals at bedtime adjust insulin regimen as necessary. Home Victoza continued. Metformin held since patient received contrast at admission. GERD Protonix continued. DVT prophylaxis subcutaneous Lovenox. Code Visit OBSV E AND M: [id number] Initial observation care L3 11/21/17 0224 <Electronically signed by Rajendra Enriquez MD> Date Rajendra Enriquez MD Cosigner Signature: Date (if applicable) CC: Rajendra Enriquez MD; Moon Horta MD Signed BEDSIDE GLUCOSE Collected: 11/21/2017 Status: F Source: CHAO 1:03 AM [facility] [place] CODE TESTS RESULT OUT OF REFERENCE UNITS RANGE LAB L501.080 70-110 mg/dL High BEDSIDE GLU 241 Result Comment: MANAGEMENT OF PATIENT CARE PER NURSING PROTOCOL Performed By: #### L501.080 #### [facility] Point of Care [address] [place] [address] TROPONIN-I Collected: 11/21/2017 Status: F Source: CHAO 12:35 AM [facility] [place] CODE TESTS RESULT OUT OF RANGE REFERENCE UNITS LAB L501.4010 <0.045 ng/mL Normal < 0.015 TROPONIN-I Result Comment: TROPONIN-I EXPECTED VALUES <0.045 Negative 0.045 - 0.590 Consistent with Cardiac Damage > OR = 0.600 Critical Value Not every elevated troponin is indicative of WA. These values should be used with clinical judgement in examining the patient's clinical picture for diagnosis. To establish a diagnosis of WA versus myocardial injury, there must be a demonstrated rise and/or fall in the troponin values, in addition to ischemic symptoms, EKG changes, new regional wall motion abnormality, and/or angiographical evidence. PLEASE NOTE: REFERENCE RANGES EDITED 17 Performed By: #### L501.4010 #### [facility] [address] [place], [place], [address] BRAIN WITHOUT Observed: 11/21/2017 Status: F Source: CHAO CONTRAST 12:16 AM [facility] Imaging Services [address] [place] [address] Brain without Contrast MR#: [id number] Acct: [id number] Name: DESIREE SMALL Rep #: [id number] : 1975 F 42 From: Hugo Otto DO PCP: Moon Horta MD Status: ADM KATHI Study: Brain without Contrast Date of Exam: 11/21/17 Exam# [id number] Ordering Dr: Rajendra Enriquez MD STUDY: MRI BRAIN WITHOUT CONTRAST REASON FOR EXAM: Female, 42 years old. Dizziness and headache. TECHNIQUE: Standardized multiplanar fat and water weighted pulse sequences were obtained. COMPARISON: [address] head[address] FINDINGS: Normal size of the ventricles and extra-axial spaces for the patient's age. Normal white matter tracts of the supratentorial brain. There is no evidence for recent intracranial ischemia or other cause of cytotoxic edema on diffusion weighted imaging (DWI). Normal T2* images of the brain without demonstrated susceptibility artifact. There is no demonstrated hemosiderin stain. Normal bilateral basal ganglia. Normal thalami. There is no extra-axial fluid accumulation. Normal flow voids within the major intracranial circulation suggesting patency by spin echo criteria. Normal sella turcica, pituitary gland, infundibular stalk, optic chiasm and hypothalamus. Normal tectal plate and pineal gland. Normal midbrain, italo and medulla. Normal cerebellum. Normal basal cisterns. Normal bilateral temporal bones. Normal bilateral internal auditory canals. No demonstrated orbital abnormality, within the constraints of a routine brain study. There is near complete opacification of the right maxillary sinus with fluid layering. Normal calvarium and skull base. Normal visualized soft tissue structures. Normal visualized upper cervical spine. MRI/Brain without Contrast IMPRESSION: 1. No evidence of acute intracranial bleed, mass or ischemia. 2. Right maxillary sinus opacification fluid layering, clinically correlate for patient's symptomology. Electronically Signed: Hugo Otto DO at 12:17 EDT , Service support , CC: Rajendra Enriquez MD; Moon Horta MD Line Out Man: Signed EMERGENCY DEPARTMENT Observed: 11/20/2017 Status: F Source: EQUINUNK SUMMARY 10:45 PM [facility] [place] [facility] Medical Records Department [address] [place] [address] Emergency Department Summary 11/20/17 1536 MR#: [id number] Acct: [id number] Name: DESIREE SMALL Rep #: [id number] : 1975 42 From: Risa Love MD PCP: Moon Horta MD Status: REG ER - ER Visit Summary Date of Service: 11/20/17 Chief Complaint: Headache History of Present Illness: The patient is a 42 F presenting with headache which started today and gradually worsened. She has had nausea, photophobia, vertigo. She denies vomiting. She states earlier in the week she had vomiting and diarrhea. This has since slowed down. She states her headache started today while out in the heat. She has a history of migraines but has not had one for some time and did not have any medications. She typically does not have vertigo associated with her headaches. She has a history of diabetes. Physical Examination: Vitals are stable. Patient is afebrile. Alert no acute distress. HEENT exam is unremarkable. Neck is supple. No meningismus Lungs are clear and equal bilaterally. Heart is regular rate and rhythm. Abdomen is soft nontender nondistended. Extremities are unremarkable. Skin is warm and dry. No focal neurologic deficit. Normal strength and sensation Remainder of exam is unremarkable. Emergency Department Course and Treatment: Patient is given IV fluids, Reglan, Benadryl. She had improvement but continues to have pain. She is given Toradol IV. CTA head unremarkable. CTA neck shows normal bilateral cervical carotid. There is either stenotic narrowing, slow flow, or occlusion of the distal right vertebral artery. Normal left Vertebral artery. Patient has had migraines in the past but she has never had associated vertigo. Discussed with Dr. Abdul and the hospitalist for admission. Disposition: Admission Impression: Headache, vertigo, abnormal CTA neck This note was generated with Udemy dictation software. It may contain incorrect words, spelling, and punctuation that were not noted in review of the chart prior to signing ED Disposition - Plan for ED Patient: Chief Complaint: Headache Referrals: Moon Horta MD [Primary Care Provider] - What to do if you have Problems For any increased pain, shortness of breath, bleeding, nausea or vomiting, chest pain, or any unexpected problems, contact your Primary Care Provider. Call [facility] ([phone]) or report to the closest Emergency Room. Call 911 if necessary. 11/20/17 9020 <Electronically signed by Risa Love MD> Date Risa Love MD Cosigner Signature (If Indicated): Date CC: Moon Horta MD CTA HEAD W/WO Observed: 11/20/2017 Status: F Source: CHAO CONTRAST 6:01 PM [facility] [place] [facility] Imaging Services [address] [place] [address] CTA Head W/WO Contrast MR#: [id number] Acct: [id number] Name: DESIREE SMALL Rep #: [id number] : 1975 F 42 From: Bishop Vargas MD PCP: Moon Horta MD Status: REG ER Study: CTA Head W/WO Contrast Date of Exam: 11/20/17 Exam# [id number] Ordering Dr: Risa Love MD STUDY: CTA OF THE BRAIN REASON FOR EXAM: Female, 42 years old. BRADFORD, DIZZY RADIATION DOSAGE (If Supplied By Facility): CTDIvol = ( 27.9 ) mGy, DLP = ( 1529.38 ) mGycm TECHNIQUE: CT angiography was performed with a multi-detector CT scanner. Data acquisition was obtained from the skull base through the vertex following intravenous administration of 100 ml of ISO 370. MIP images were reconstructed from the axial data set. Post-processing of the angiographic images was performed, with multiplanar reformation and MIPS reconstruction. Individualized dose optimization techniques were used for this CT. COMPARISON: None. FINDINGS: Normal bilateral petrous carotid arteries. Normal right cavernous carotid artery with a normal supraclinoid bifurcation. Normal left cavernous carotid artery with a normal supraclinoid bifurcation. Normal right A1 segments of the anterior cerebral artery. Normal left A1 segments of the anterior cerebral artery. Normal intact anterior communicating artery (ACOM). Normal bilateral A2 segments of the anterior cerebral arteries. Normal right M1 and M2 segments of the middle cerebral arteries, with a normal M1 bifurcation. Normal left M1 and M2 segments of the middle cerebral arteries, with a normal M1 bifurcation. There is non-visualization of the right posterior communicating artery (PCOM). Normal left posterior communicating artery (PCOM). Normal bilateral vertebral arteries. Normal basilar artery with a normal basilar bifurcation. The visualized bilateral superior cerebellar (SCA) arteries are normal. Normal bilateral P1, P2 and visualized P3 segments of the posterior cerebral arteries. There is no demonstrated aneurysm of the [place]. There is mild cerebral atrophy with widening of the extra-axial spaces and ventricular dilatation. There are areas of decreased attenuation within the white matter tracts of the supratentorial brain, consistent with microvascular disease changes. Normal basal ganglia and thalami. Normal brainstem. There is mild cerebellar atrophy. CT/CTA Head W/WO Contrast IMPRESSION: Normal [place] without a demonstrated aneurysm or hemodynamically significant stenosis. Electronically Signed: Bishop Vargas MD at 19:12 EDT , Service support , CC: Risa Love MD; Moon Horta MD Line Out Man: Signed CTA NECK W/WO Observed: 11/20/2017 Status: F Source: EQUINUNK CONTRAST 6:01 PM [facility] [place] [facility] Imaging Services [address] [place] [address] CTA Neck W/WO Contrast MR#: [id number] Acct: [id number] Name: DESIREE SMALL Rep #: [id number] : 1975 F 42 From: Bishop Vargas MD PCP: Moon Horta MD Status: REG ER Study: CTA Neck W/WO Contrast Date of Exam: 11/20/17 Exam# [id number] Ordering Dr: Risa Love MD STUDY: CTA NECK WITH CONTRAST REASON FOR EXAM: Female, 42 years old. BRADFORD, DIZZY RADIATION DOSAGE (If Supplied By Facility): CTDIvol = ( 27.9 ) mGy, DLP = ( 1529.38 ) mGycm Individualized dose optimization techniques were used for this CT. TECHNIQUE: CT angiography with multi-detector data acquisition was performed from the aortic arch to the skull base following intravenous administration of 100 ml of Isovue 370 contrast. MIP images were reconstructed from the axial data set. Post-processing of the angiographic images was performed, with multiplanar reformation and 3D reconstruction. COMPARISON: None. FINDINGS: AORTIC ARCH: Normal visualized aortic arch. Normal origins of the brachiocephalic, left common carotid, and left subclavian arteries. RIGHT CAROTID ARTERIES: Normal right common carotid artery (CCA). Normal right common carotid bulb. Normal origin of the right internal carotid (ICA) artery without a hemodynamically significant stenosis. Normal visualized cervical portion of the right internal carotid artery. Normal origin of the right external carotid artery (ECA). LEFT CAROTID ARTERIES: Normal left common carotid artery (CCA). Normal left common carotid bulb. Normal origin of the left internal carotid (ICA) artery without a hemodynamically significant stenosis. Normal visualized cervical portion of the left internal carotid artery. Normal origin of the left external carotid artery (ECA). VERTEBRAL ARTERIES: There is enhancement within the bilateral vertebral arteries with a small right vertebral artery, and a dominant left vertebral artery. There is either stenotic narrowing, slow flow, or occlusion of the distal right vertebral artery. CT/CTA Neck W/WO Contrast IMPRESSION: Normal bilateral cervical carotid. There is either stenotic narrowing, slow flow, or occlusion of the distal right vertebral artery. Normal left Vertebral artery. ALL ABOVE CRITERIA BY NASCET. Electronically Signed: Bishop Vargas MD at 19:13 EDT , Service support , CC: Risa Love MD; Moon Horta MD Line Out Man: Signed BASIC METABOLIC Collected: 11/20/2017 Status: F Source: CHAO PROFILE (BMP) 3:30 PM [facility] [place] TYPE CODE TESTS RESULT OUT OF RANGE REFERENCE UNITS LAB L501.0100 74-106 mg/dL High GLU 192 Result Comment: Fasting Glucose result greater than or equal to 126 mg/dL suggests DIABETES MELLITUS per A.D.A. criteria. Please note revised GLUCOSE reference range effective 2017. LAB L501.1000 7-18 mg/dL Normal BUN 7 LAB L501.1100 0.55-1.02 mg/dL Normal CREAT,SERUM 0.82 Result Comment: The validity of the calculated GFR AND GFRAA in patients over 70 years has not been determined. Clinical correlation is essential. LAB L501.1110 >60 mL/min Normal EST GFR 82 Result Comment: Non- GFR Calc LAB L501.1115 >60 mL/min Normal EST GFR - AA 99 Result Comment: GFR Calc LAB L501.1255 ml/min Normal Estimated CRCL 72.13 LAB L501.1300 10-20 RATIO Low BUN/CRE 8.5 LAB L501.2200 8.5-10 mg/dL Low .1 CA 8.4 LAB L501.5300 136-14 mmol/L Low 5 NA 135 LAB L501.5600 3.5-5. mmol/L Normal 1 K 3.5 LAB L501.5900 98-107 mmol/L Normal CL 99 LAB L501.6100 21.0-3 mmol/L Normal 2.0 CO2 26.0 LAB L501.6200 5-15 Normal GAP 10 Performed By: #### L500.2500 #### [facility] [address] [place], [place] [address], [address] PROGRESS Observed: 11/19/2017 Status: COMPLETED Source: [place] 2:26 PM [facility] REPOSITORY HNO ID: [id number] Author: Lina August Service: (none) Author Type: Employment Office Clerk Type: Progress Notes Filed: 11/26/2017 10:16 AM Note Text: Em, I spoke to Desiree she will be calling you on Wednesday to discuss blood sugars and medication. Lina August MA PROGRESS Observed: 11/19/2017 Status: COMPLETED Source: [place] 2:[address] [facility] [place] REPOSITORY HNO ID: [id number] Author: Lina August Service: (none) Author Type: Employment Office Clerk Type: Progress Notes Filed: 11/26/2017 10:16 AM Note Text: The patient has been identified by name and date of : YES I have scheduled the patient for an appointment on Visit date not found. The patient will report to the lab prior to the visit. I have pended the following lab orders: PHMA Documentation 05/12/2017 11/19/2017 Opts out of [facility] No No Appointments Scheduled Scheduled CP Appt - DM2 with No [place] Record Requested Record Requested Opthy Appt No No DM2 with No Urine Alb Lab Ordered - DM2 with No DFE Record Requested Record Requested A1C > 8.9 Lab Ordered CP Referral;Lab Ordered Lina August MA PROGRESS Observed: 11/19/2017 Status: COMPLETED Source: [place] 1:53 PM [facility] REPOSITORY HNO ID: [id number] Author: Lina August Service: (none) Author Type: Employment Office Clerk Type: Progress Notes Filed: 11/26/2017 10:16 AM Note Text: I have attempted to contact this patient by phone to return their call, schedule an appointment, discuss lab results, etc. Left message to call back.Lina August MA PROGRESS Observed: 11/19/2017 Status: COMPLETED Source: [place] 9:35 AM [facility] REPOSITORY HNO ID: [id number] Author: Lina August Service: (none) Author Type: Employment Office Clerk Type: Progress Notes Filed: 11/26/2017 10:16 AM Note Text: I have attempted to contact this patient by phone to return their call, schedule an appointment, discuss lab results, etc. Left message to call back. Lina August MA PROGRESS Observed: 11/17/2017 Status: COMPLETED Source: [place] 3:36 PM [facility] REPOSITORY HNO ID: [id number] Author: Lina August Service: (none) Author Type: Employment Office Clerk Type: Progress Notes Filed: 11/26/2017 10:16 AM Note Text: I have attempted to contact this patient by phone to return their call, schedule an appointment, discuss lab results, etc. Left message to call back. PROGRESS Observed: 11/15/2017 Status: COMPLETED Source: [place] 1:54 PM [facility] REPOSITORY HNO ID: [id number] Author: Kushal Ford Service: (none) Author Type: Nurse Practitioner Type: Progress Notes Filed: 11/26/2017 10:16 AM Note Text: Order filed. Kushal Ford APRN.CNP PROGRESS Observed: 11/15/2017 Status: COMPLETED Source: [place] 12:59 PM [facility] REPOSITORY HNO ID: [id number] Author: Lina August Service: (none) Author Type: Employment Office Clerk Type: Progress Notes Filed: 11/26/2017 10:16 AM Note Text: PHMA TEAMLET DOCUMENTATION Provider Action/FYI: Patient needs appointment, needs labs ordered, needs Foot and Eye exam. mammogram PSR Action/FYI: Reschedule patient appointment Teamlet has identified patient by name and date of . Team: Keysha Field MA, Rehana Camacho MA, Lina August MA, RUBIO Hernandez, Dr. Moon Horta, ? Last Office Visit:11/09/2017 NO SHOW ? Next Office Visit: Visit date not found ? Last BP/Labs: Blood Pressure: Last 3 Encounter BP Readings: Date: BP: 08/09/2017 126/86 11/17/2016 110/68 08/19/2016 102/70 Lipids: Cholesterol, Total (mg/dL) Date Value 08/05/2017 167 07/22/2016 154 HDL Cholesterol (mg/dL) Date Value 08/05/2017 35 07/22/2016 35 LDL Cholesterol (mg/dL) Date Value 08/05/2017 74 07/22/2016 66 Triglyceride (mg/dL) Date Value 08/05/2017 290 07/22/2016 264 HGB A1C: Lab Results Component Value Date HBA1C 10.2 08/05/2017 HBA1C 9.4 11/17/2016 HBA1C 8.8 07/22/2016 TSH: TSH (uU/mL) Date Value 05/01/2016 1.480 03/05/2015 1.550 ) Care Gap: DM - Last HGBA1C is NOT under 9% Plan: ? Confirm PCP ? Type of appointment needed: Follow-up Dr. Horta orKushal Ford ? Consultation Appointments: Needs to reschedule Em ? Labs, HM and Immunization: Labs are ordered Mammogram Lina August MA PROGRESS Observed: 11/15/2017 Status: COMPLETED Source: [place] 12:58 PM [facility] REPOSITORY HNO ID: [id number] Author: Em Nielson (Pharmacist) Service: (none) Author Type: Pharmacist Type: Progress Notes Filed: 11/26/2017 10:16 AM Note Text: Noted CNPTOUTREACH Observed: 11/15/2017 Status: COMPLETED Source: [place] 12:00 AM [facility] REPOSITORY Patient Outreach (FAMPWS) DESIREE SMALL ([id number]) 1975 F Date Time Provider Department 11/15/17 LINA AUGUST) FAMPWS During your visit today, we recorded the following information about you: EM NIELSON PHARMACIST 11/26/2017 10:16 AM Signed Noted Lina August MA 11/26/2017 10:16 AM Signed PHMA TEAMLET DOCUMENTATION Provider Action/FYI: Patient needs appointment, needs labs ordered, needs Foot and Eye exam. mammogram PSR Action/FYI: Reschedule patient appointment Teamlet has identified patient by name and date of . Team: Keysha Field MA, Rehana Camacho MA, Lina August MA, RUBIO Hernandez, Dr. Moon Horta, ? Last Office Visit:11/09/2017 NO SHOW ? Next Office Visit: Visit date not found ? Last BP/Labs: Blood Pressure: Last 3 Encounter BP Readings: Date: BP: 08/09/2017 126/86 11/17/2016 110/68 08/19/2016 102/70 Lipids: Cholesterol, Total (mg/dL) Date Value 08/05/2017 167 07/22/2016 154 HDL Cholesterol (mg/dL) Date Value 08/05/2017 35 07/22/2016 35 LDL Cholesterol (mg/dL) Date Value 08/05/2017 74 07/22/2016 66 Triglyceride (mg/dL) Date Value 08/05/2017 290 07/22/2016 264 HGB A1C: Lab Results Component Value Date HBA1C 10.2 08/05/2017 HBA1C 9.4 11/17/2016 HBA1C 8.8 07/22/2016 TSH: TSH (uU/mL) Date Value 05/01/2016 1.480 03/05/2015 1.550 ) Care Gap: DM - Last HGBA1C is NOT under 9% Plan: ? Confirm PCP ? Type of appointment needed: Follow-up Dr. Amado Ford ? Consultation Appointments: Needs to reschedule Em ? Labs, HM and Immunization: Labs are ordered Mammogram SUZETTE López, AWA.JENNY 11/26/2017 10:16 AM Signed Order filed. Kushal Ford, AWA.JENNY August MA 11/26/2017 10:16 AM Signed I have attempted to contact this patient by phone to return their call, schedule an appointment, discuss lab results, etc. Left message to call back. Lina August MA 11/26/2017 10:16 AM Signed I have attempted to contact this patient by phone to return their call, schedule an appointment, discuss lab results, etc. Left message to call back. SUZETTE López MA 11/26/2017 10:16 AM Signed I have attempted to contact this patient by phone to return their call, schedule an appointment, discuss lab results, etc. Left message to call back.SUZETTE López MA 11/26/2017 10:16 AM Signed The patient has been identified by name and date of : YES I have scheduled the patient for an appointment on Visit date not found. The patient will report to the lab prior to the visit. I have pended the following lab orders: PHCO Documentation 05/12/2017 11/19/2017 Opts out of [facility] No No Appointments Scheduled Scheduled CP Appt - DM2 with No [place] Record Requested Record Requested Opthy Appt No No DM2 with No Urine Alb Lab Ordered - DM2 with No DFE Record Requested Record Requested A1C > 8.9 Lab Ordered CP Referral;Lab Ordered SUZETTE López MA 11/26/2017 10:16 AM Signed Em, I spoke to Desiree she will be calling you on Wednesday to discuss blood sugars and medication. Lina August MA Allergies As of Date: 11/15/2017 Noted Allergy Reaction PENICILLINS 10/28/2005 10 - Anaphylaxis PREDNISONE 10/13/2013 11 - Vomiting Comments: GI upset VICODIN (HYDROCODONE-ACETAMINOPHE*08/09/2017 8 - GI Upset Date Reviewed: 08/09/2017 Reviewed by: Priscilla ([facility]) SUZETTE Pacheco - Fully Assessed Reason for Visit: [facility]/Care Gap Outreach [3605] Primary Visit Diagnosis:Encounter for screening mammogram for breast cancer [Z12.31] Order(s):[facility] SCREEN[facility] [7343317] Order #: [id number] FUTURE Prescriptions as of 11/15/2017 Sig: VICTOZA 2-ASAEL 0.6 MG/0.1 ML (* INJECT 1.8MG UNDER THE SKIN O* METFORMIN 1,000 MG TABLET TAKE 1 TABLET BY MOUTH TWICE * CHITRA AQUINO U-100 INSULI* INJECT 40 UNITS SUBCUTANEOUSL* LISINOPRIL 10 MG-HYDROCHLOROT* TAKE ONE TABLET BY MOUTH EVER* X VICTOZA 2-ASAEL 0.6 MG/0.1 ML (* INJECT 1.8MG UNDER THE SKIN E* GABAPENTIN 300 MG CAPSULE Take 1 capsule by mouth three* ETODOLAC 400 MG TABLET TAKE ONE TABLET BY MOUTH 2 TI* BLOOD SUGAR DIAGNOSTIC STRIPS Test blood sugar(s) 2x daily.* X CHOLECALCIFEROL (VITAMIN D3) * Take 1 capsule by mouth once * OMEPRAZOLE 40 MG CAPSULE,IRASEMA* TAKE ONE CAPSULE BY MOUTH SAMIA* X GLIMEPIRIDE 4 MG TABLET TAKE TWO TABLETS BY MOUTH ONC* Patient not taking: Reported on 08/09/2017 X ATORVASTATIN 40 MG TABLET TAKE ONE TABLET BY MOUTH ONCE* X GLIMEPIRIDE 4 MG TABLET TAKE TWO TABLETS BY MOUTH ONC* X DICYCLOMINE 10 MG CAPSULE TAKE ONE CAPSULE BY MOUTH BEF* X ACETAMINOPHEN ER 650 MG TABLE* Take 1 tablet by mouth every * CYANOCOBALAMIN (VIT B-12) 1,0* Take 1 tablet by mouth once d* Patient not taking: Reported on 08/09/2017 CALCIUM CARBONATE 333 MG-MAGN* Take 1 tablet by mouth once d* COMPOUNDED PRESCRIPTION OTC B12 100 mcg daily Patient not taking: Reported on 08/09/2017 COMPOUNDED PRESCRIPTION OTC Calcium, magnesium , zinc* Patient not taking: Reported on 08/09/2017 COMPOUNDED PRESCRIPTION OTC Tylenol for arthritis - 6* Patient not taking: Reported on 08/09/2017 LEVONORGESTREL 20 MCG/24 HR (* Inserted in office IRON ORAL Take by mouth. COMPOUNDED PRESCRIPTION KNEE HIGH COMPRESSION STOCKIN* X PEN NEEDLE, DIABETIC 31 GAUGE* Use as directed once daily wi* LANCETS 28 GAUGE Test blood sugar(s) 2x daily.* Problem List As Of Date 11/15/2017 Noted Resolved COMMON MIGRAINE W/O MENTN INTRACT [G43.009] BIPOLAR DISORDER NOS [F31.9] Knee pain, acute [M25.569] INVALID FOR* More... Morbid obesity with BMI of 40.0-44.9, adult (HC*INVALID FOR* More... PTSD (post-traumatic stress disorder) [F43.10] INVALID FOR* Type 2 diabetes mellitus without complication (*INVALID FOR* Essential hypertension with goal blood pressure*INVALID FOR* Encounter Status:Closed by LINA AUGUST on 11/26/17 ERIKA Observed: 10/26/2017 Status: COMPLETED Source: [place] 12:00 AM [facility] REPOSITORY Patient Outreach (FAMPST) DESIREE SMALL ([id number]) 1975 F Date Time Provider Department 10/26/17 MOON HORTA During your visit today, we recorded the following information about you: Allergies As of Date: 10/26/2017 Noted Allergy Reaction PENICILLINS 10/28/2005 10 - Anaphylaxis PREDNISONE 10/13/2013 11 - Vomiting Comments: GI upset VICODIN (HYDROCODONE-ACETAMINOPHE*08/09/2017 8 - GI Upset Date Reviewed: 08/09/2017 Reviewed by: Priscilla ([facility]) SUZETTE Pacheco - Fully Assessed Visit Diagnosis:Medication management [Z79.899] Order(s):ALBUMIN/CREAT RATIO RND UR [SQUACR] Order #: [id number] FUTURE Prescriptions as of 10/26/2017 Sig: LISINOPRIL 10 MG-HYDROCHLOROT* TAKE ONE TABLET BY MOUTH EVER* X VICTOZA 2-ASAEL 0.6 MG/0.1 ML (* INJECT 1.8MG UNDER THE SKIN E* GABAPENTIN 300 MG CAPSULE Take 1 capsule by mouth three* ETODOLAC 400 MG TABLET TAKE ONE TABLET BY MOUTH 2 TI* BLOOD SUGAR DIAGNOSTIC STRIPS Test blood sugar(s) 2x daily.* X CHOLECALCIFEROL (VITAMIN D3) * Take 1 capsule by mouth once * OMEPRAZOLE 40 MG CAPSULE,IRASEMA* TAKE ONE CAPSULE BY MOUTH SAMIA* X GLIMEPIRIDE 4 MG TABLET TAKE TWO TABLETS BY MOUTH ONC* Patient not taking: Reported on 08/09/2017 X ATORVASTATIN 40 MG TABLET TAKE ONE TABLET BY MOUTH ONCE* X GLIMEPIRIDE 4 MG TABLET TAKE TWO TABLETS BY MOUTH ONC* X DICYCLOMINE 10 MG CAPSULE TAKE ONE CAPSULE BY MOUTH BEF* X ACETAMINOPHEN ER 650 MG TABLE* Take 1 tablet by mouth every * CYANOCOBALAMIN (VIT B-12) 1,0* Take 1 tablet by mouth once d* Patient not taking: Reported on 08/09/2017 CALCIUM CARBONATE 333 MG-MAGN* Take 1 tablet by mouth once d* X INSULIN GLARGINE (U-100) 100 * Inject 35 Units subcutaneousl* X METFORMIN 1,000 MG TABLET Take 1 tablet by mouth twice * COMPOUNDED PRESCRIPTION OTC B12 100 mcg daily Patient not taking: Reported on 08/09/2017 COMPOUNDED PRESCRIPTION OTC Calcium, magnesium , zinc* Patient not taking: Reported on 08/09/2017 COMPOUNDED PRESCRIPTION OTC Tylenol for arthritis - 6* Patient not taking: Reported on 08/09/2017 LEVONORGESTREL 20 MCG/24 HR (* Inserted in office IRON ORAL Take by mouth. COMPOUNDED PRESCRIPTION KNEE HIGH COMPRESSION STOCKIN* X PEN NEEDLE, DIABETIC 31 GAUGE* Use as directed once daily wi* LANCETS 28 GAUGE Test blood sugar(s) 2x daily.* Problem List As Of Date 10/26/2017 Noted Resolved COMMON MIGRAINE W/O MENTN INTRACT [G43.009] BIPOLAR DISORDER NOS [F31.9] Knee pain, acute [M25.569] INVALID FOR* More... Morbid obesity with BMI of 40.0-44.9, adult (HC*INVALID FOR* More... PTSD (post-traumatic stress disorder) [F43.10] INVALID FOR* Type 2 diabetes mellitus without complication (*INVALID FOR* Essential hypertension with goal blood pressure*INVALID FOR* Encounter Status:Closed by FRANSISCO COBOS on 12/17/17 CNOV Observed: 08/09/2017 Status: COMPLETED Source: [place] 9:40 AM [facility] REPOSITORY Office Visit (FAMPWS) DESIREE SMALL ([id number]) 1975 F Date Time Provider Department 08/09/17 9:40 AM KUSHAL FORD ([facility]) FAMPWS During your visit today, we recorded the following information about you: Pulse Respiration Blood pressure Weight 82/minute 18/minute 126/86 117.9 kg Kushal Ford APRN.JENNY 08/09/2017 10:01 AM Signed Desiree Mendozanes is a 41 year old female who presents in follow up of DM, HTN and Hyperlipidemia. Was previously off of Victoza as she was waiting on insurance coverage. She was off of it for one year. States that she did start taking it in April. Does have neuropathy in her bilateral feet. She has been without her gabapentin since March. Does have a low vitamin D level. Does have periods of leg swelling. Usually occurring during the day and will resolve with leg elevation. Had a normal PVR completed last year. Insurance will not cover compression hoses due to diagnosis of leg swelling not being sufficient. DIABETES MELLITUS: Ms. Small was last seen on 11/2016. Since our last visit she denies excessive thirst or increased frequency of urination, chest pain or dyspnea , new or unusual visual symptoms, low sugar/hypoglycemic reactions, weight loss/gain, lightheadedness/dizziness and bowel changes/loose stools. Patient does have some numbness of feet. She does not check feet. Education about appropriate diabetic foot care given. Follows a diabetic diet some of the time. She is compliant with medication(s) and is tolerating med(s) without any side effects. She reports checking her glucose on a twice a day, before breakfast and after meals occasionally (usually 1 hour after) schedule with sugars in the fasting 200s and postprandial 320 range. Patient's last HgA1C was Hemoglobin A1C (%) Date Value 08/05/2017 10.2 11/17/2016 9.4 ) Last Ophthalmology exam was within the past 12 months Last Podiatry exam was within the past 12 months HTN: Ms. Small indicates that she is feeling well and denies any symptoms referable to elevated blood pressure. Specifically denies headache, chest pain, palpitations and dyspnea. Patient denies any side effects of her medication(s) and is compliant with their regimen. She does not check BP's generally. Desiree gets minimal exercise. She watches her diet for sodium, low fat and low cholesterol some of the time. Last 3 Encounter BP Readings: Date: BP: 08/09/2017 129/91, 126/86 11/17/2016 110/68 08/19/2016 102/70 Hyperlipidemia. Ms. Small reports doing well on current therapy of atorvastatin (Lipitor) 40 mg. Denies side effects of muscle weakness or achiness. Her most recent lipid panels are: Cholesterol, Total (mg/dL) Date Value 08/05/2017 167 07/22/2016 154 HDL Cholesterol (mg/dL) Date Value 08/05/2017 35 07/22/2016 35 LDL Cholesterol (mg/dL) Date Value 08/05/2017 74 07/22/2016 66 Triglyceride (mg/dL) Date Value 08/05/2017 290 07/22/2016 264 Past Medical, Surgical, Family and Social Histories reviewed and updated today in the History tab of [facility]. Current Medications and allergies reviewed. PAST MEDICAL HISTORY Diagnosis Date - Bipolar disorder, unspecified (HCC) - Migraine without aura, without mention of intractable migraine without mention of status migrainosus - Other psoriasis - Rash and other nonspecific skin eruption - Recovering alcoholic (HCC) - Substance abuse PAST SURGICAL HISTORY Procedure Laterality Date - L'SCOPE DX W/WO BRUSHINGS/WASHINGS 04/04/1999 Laparoscopy L SALPINGECTOMY - REMOVAL GALLBLADDER 09/1999 Cholecystectomy - TREAT ECTOPIC PREG,NON REMVAL 03/1999 Ectopic - TUBAL LIGATION HX 06/19/2003 ACTIVE PROBLEM LIST Migraine Without Aura, Without Mention of Intractable Migraine Without Mention of Status Migrainosus Bipolar Disorder, Unspecified (Hcc) Knee Pain, Acute Morbid Obesity With Bmi of 40.0-44.9, Adult (Hcc) Ptsd (Post-Traumatic Stress Disorder) Type 2 Diabetes Mellitus Without Complication ([facility]) Essential Hypertension With Goal Blood Pressure Less Than 140/90 ALLERGIES: Penicillins; Prednisone; Vicodin [Hydrocodone-Acetaminophen] Current Outpatient Prescriptions: Omeprazole 40 mg capsule TAKE ONE CAPSULE BY MOUTH EVERY DAY atorvastatin (LIPITOR) 40 mg tablet TAKE ONE TABLET BY MOUTH ONCE DAILY glimepiride (AMARYL) 4 mg tablet TAKE TWO TABLETS BY MOUTH ONCE DAILY IN THE MORNING PRIOR TO MEALS lisinopril-hydrochlorothiazide (PRINZIDE,ZESTORETIC) 10-12.5 mg per tablet TAKE ONE TABLET BY MOUTH ONCE DAILY dicyclomine (BENTYL) 10 mg capsule TAKE ONE CAPSULE BY MOUTH BEFORE MEALS AND AT BEDTIME NEEDED acetaminophen (TYLENOL ARTHRITIS PAIN) 650 mg CR tablet Take 1 tablet by mouth every 8 hours as needed. gabapentin (NEURONTIN) 300 mg capsule Take 1 capsule by mouth three times daily. calcium carb-mag ox-zinc gluc 333-133-5 mg tab Take 1 tablet by mouth once daily insulin glargine (BASAGLAR KWIKPEN) 100 unit/mL (3 mL) inpn Inject 35 Units subcutaneously once daily. liraglutide (VICTOZA 2-ASAEL) 0.6 mg/0.1 mL (18 mg/3 mL) pnij Inject 1.8 mg subcutaneously once daily metFORMIN (GLUCOPHAGE) 1,000 mg tablet Take 1 tablet by mouth twice daily with meals. levonorgestrel (MIRENA) 20 mcg/24 hr (5 years) IUD Inserted in office FERROUS SULFATE (IRON ORAL) Take by mouth. insulin needles, DISPOSABLE, (BD INSULIN PEN NEEDLE UF) 31 gauge x 5/16 ndle Use as directed once daily with insulin pen DM: yes Insulin: yes DX:E11.9 blood sugar diagnostic (FREESTYLE LITE STRIPS) test strip Test blood sugar(s) 2x daily. Dx: E11.65. Insulin: No lancets (FREESTYLE LANCETS) 28 gauge misc Test blood sugar(s) 2x daily. Dx: E11.65. Insulin: No glimepiride (AMARYL) 4 mg tablet TAKE TWO TABLETS BY MOUTH ONCE DAILY IN THE MORNING PRIOR TO MEALS (Patient not taking: Reported on 08/09/2017) etodolac (LODINE) 400 mg tablet TAKE ONE TABLET BY MOUTH 2 TIMES A DAY cyanocobalamin (VITAMIN B-12) 1,000 mcg tab Take 1 tablet by mouth once daily. (Patient not taking: Reported on 08/09/2017 ) COMPOUNDED PRESCRIPTION OTC B12 100 mcg daily (Patient not taking: Reported on 08/09/2017 ) COMPOUNDED PRESCRIPTION OTC Calcium, magnesium , zinc 500 mg - takes one 500 mg tablet in the morning and one 500 mg tablet in the evening (Patient not taking: Reported on 08/09/2017 ) COMPOUNDED PRESCRIPTION OTC Tylenol for arthritis - 650 mg tablet - takes two tablets in morning and 2 tablets at night (Patient not taking: Reported on 08/09/2017 ) Compression Knee Highs KNEE HIGH COMPRESSION STOCKINGS 30- 40 MM. DX: EDEMA. Bilateral leg swelling. No current facility-administered medications for this visit. FAMILY HISTORY Problem Relation Age of Onset - Hypertension Mother - Diabetes Mother - Asthma Mother - Alcohol/Drug Mother - Heart Paternal Grandfather [place] Social History Marital status: Spouse name: Years of education: Number of children: Social History Main Topics Smoking status: Former Smoker Packs/day: 0.00 Years: 0.00 Quit date: 03/08/2003 Smokeless tobacco: Never Used Alcohol use: No Comment: recovering alcohol Drug use: No Comment: past history milind Sexual activity: Yes Partners with: Male control/protection: Tubal Ligation PHYSICAL EXAM: BP 126/86 Pulse 82 Resp 18 Wt 117.9 kg (260 lb) LMP (LMP Unknown) BMI 47.55 kg/m? BMI 47.55 kg/(m2) General appearance: Alert, cooperative, pleasant, in no acute distress, overweight Head: Normocephalic, atraumatic Eyes: conjunctiva/corneas normal, PERRL Oropharynx: moist without lesions, teeth in good repair Neck: normal, supple, no adenopathy and thyroid normal size, non-tender, without nodularity Heart: normal, regular rate and rhythm, without murmur Lungs: clear to auscultation, without rales or wheeze, good air exchange Ext: no edema in LE bilaterally, good distal pulses Component Latest Ref Rng AND Units 08/05/2017 Protein, Total 6.3 - 8.0 g/dL 7.3 Albumin 3.9 - 4.9 g/dL 4.0 Calcium 8.5 - 10.2 mg/dL 9.4 Bilirubin, Total 0.2 - 1.3 mg/dL 0.4 Alkaline Phosphatase 32 - 117 U/L 114 AST 13 - 35 U/L 25 Glucose 74 - 99 mg/dL 222 (H) BUN 7 - 21 mg/dL 11 Creatinine 0.58 - 0.96 mg/dL 0.67 Sodium 136 - 144 mmol/L 133 (L) Potassium 3.7 - 5.1 mmol/L 4.4 Chloride 97 - 105 mmol/L 92 (L) CO2 22 - 30 mmol/L 24 Anion Gap 9 - 18 mmol/L 17 ALT 7 - 38 U/L 34 eGFR- >60 eGFR-All Other Races . >60 Cholesterol, Total <200 mg/dL 167 Triglyceride <150 mg/dL 290 (H) HDL Cholesterol >39 mg/dL 35 (L) LDL Cholesterol <100 mg/dL 74 Non HDL Cholesterol <130 mg/dL 132 (H) Fasting Time hrs 13 VLDL Cholesterol <30 mg/dL 58 (H) TC:HDL Ratio <5.10 4.77 LDL:HDL Ratio <2.54 2.11 Hemoglobin A1C 4.3 - 5.6 % 10.2 (H) Estimated Average Glucose mg/dL 246 Vitamin D 25 Hydroxy 31.0 - 80.0 ng/mL 24.9 (L) Albumin, Urine Random 0.0 - 23.0 mg/L <12.0 ASSESSMENT/PLAN: 1. Type 2 diabetes mellitus with diabetic polyneuropathy, without long-term current use of insulin (HCC) - ICD9: 250.60, 357.2, ICD10: E11.42 (primary diagnosis) poorly controlled - Continue current medications - Referral to clinical pharmacy. - Encouraged regular aerobic exercise and weight loss - GABAPENTIN 300 MG CAPSULE OARRS website checked and validated. All prescriptions have been APPROPRIATELY filled. No suspicious activity was identified.- 08/09/2017 by Kushal Ford APRN.EYELET CUTTER - BLOOD SUGAR DIAGNOSTIC STRIPS - CONSULT TO AMBULATORY CLINIC PHARMACY - DIABETIC CUSTOM MOLDED SHOE - HGB A1C 2. Essential hypertension with goal blood pressure less than 140/90 - ICD9: 401.9, ICD10: I10 - good control - Continue current medication(s) - Encouraged dietary sodium restriction/DASH diet - Recommended regular aerobic exercise. - Goal of BP <130/80 - COMP METABOLIC PANEL 3. Hyperlipidemia, mixed - ICD9: 272.2, ICD10: E78.2 - good control - Continue current medication. - Encouraged following a low fat, low cholesterol diet. - Discussed the benefits of regular aerobic exercise and weight loss. 4. Vitamin D deficiency - ICD9: 268.9, ICD10: E55.9 - Will supplement. Then advised start vitamin d 2,000 units daily. - CHOLECALCIFEROL (VITAMIN D3) 50,000 UNIT CAPSULE 5. Arthritis of low back (HCC) - ICD9: 721.90, ICD10: M46.90 - Continue current treatment. - ETODOLAC 400 MG TABLET 6. Leg swelling - ICD9: 729.81, ICD10: M79.89 - We will get US for definitive diagnosis so that compression stockings can be ordered and covered by insurance. Symptoms consistent with venous insuffiencey. - [facility] Get labs in 3 months, follow up in 3 months, follow recs from clinical pharmacy. Kushal Ford APRN.EYELET CUTTER Referring Provider: MOON HORTA [[id number]] Allergies As of Date: 08/09/2017 Noted Allergy Reaction PENICILLINS 10/28/2005 10 - Anaphylaxis PREDNISONE 10/13/2013 11 - Vomiting Comments: GI upset VICODIN (HYDROCODONE-ACETAMINOPHE*08/09/2017 8 - GI Upset Date Reviewed: 08/09/2017 Reviewed by: Priscilla ([facility]) SUZETTE Pacheco - Fully Assessed Reason for Visit: Needs refills [Other] Cmt: had labs done 08/05 Primary Visit Diagnosis:Type 2 diabetes mellitus with diabetic polyneuropathy, without long-term current use of insulin (HCC) [E11.42] Other Visit Diagnoses:Essential hypertension with goal blood pressure less than 140/90 [I10] Hyperlipidemia, mixed [E78.2] Vitamin D deficiency [E55.9] Arthritis of low back (HCC) [M46.90] Leg swelling [M79.89] Order(s):gabapentin (NEURONTIN) 300 mg capsuleTake 1 capsule by mouth three times daily for 180 days.Disp: 270 capsuleRfl: 1 etodolac (LODINE) 400 mg tabletTAKE ONE TABLET BY MOUTH 2 TIMES A DAYDisp: 180 tabletRfl: 3 blood sugar diagnostic (FREESTYLE LITE STRIPS) test stripTest blood sugar(s) 2x daily. Dx: E11.65. Insulin: NoDisp: 300 StripRfl: 3 CONSULT TO AMBULATORY CLINIC PHARMACY [[id number]] Order #: [id number]: 1 cholecalciferol, Vitamin D3, (VITAMIN D3) 50,000 unit cap capsuleTake 1 capsule by mouth once each week.Disp: 12 capsuleRfl: 0 [facility] [[id number]] Order #: [id number] FUTURE DIABETIC CUSTOM MOLDED SHOE [[id number]] Order #: [id number] HGB A1C [FXVID1A] Order #: [id number] FUTURE COMP METABOLIC PANEL [SQCMP] Order #: [id number] FUTURE Prescriptions as of 08/09/2017 Sig: GABAPENTIN 300 MG CAPSULE Take 1 capsule by mouth three* BLOOD SUGAR DIAGNOSTIC STRIPS Test blood sugar(s) 2x daily.* OMEPRAZOLE 40 MG CAPSULE,IRASEMA* TAKE ONE CAPSULE BY MOUTH SAMIA* ATORVASTATIN 40 MG TABLET TAKE ONE TABLET BY MOUTH ONCE* GLIMEPIRIDE 4 MG TABLET TAKE TWO TABLETS BY MOUTH ONC* LISINOPRIL 10 MG-HYDROCHLOROT* TAKE ONE TABLET BY MOUTH ONCE* DICYCLOMINE 10 MG CAPSULE TAKE ONE CAPSULE BY MOUTH BEF* ACETAMINOPHEN ER 650 MG TABLE* Take 1 tablet by mouth every * CALCIUM CARBONATE 333 MG-MAGN* Take 1 tablet by mouth once d* INSULIN GLARGINE (U-100) 100 * Inject 35 Units subcutaneousl* LIRAGLUTIDE 0.6 MG/0.1 ML (18* Inject 1.8 mg subcutaneously * METFORMIN 1,000 MG TABLET Take 1 tablet by mouth twice * LEVONORGESTREL 20 MCG/24 HR (* Inserted in office IRON ORAL Take by mouth. PEN NEEDLE, DIABETIC 31 GAUGE* Use as directed once daily wi* LANCETS 28 GAUGE Test blood sugar(s) 2x daily.* ETODOLAC 400 MG TABLET TAKE ONE TABLET BY MOUTH 2 TI* CHOLECALCIFEROL (VITAMIN D3) * Take 1 capsule by mouth once * GLIMEPIRIDE 4 MG TABLET TAKE TWO TABLETS BY MOUTH ONC* Patient not taking: Reported on 08/09/2017 CYANOCOBALAMIN (VIT B-12) 1,0* Take 1 tablet by mouth once d* Patient not taking: Reported on 08/09/2017 COMPOUNDED PRESCRIPTION OTC B12 100 mcg daily Patient not taking: Reported on 08/09/2017 COMPOUNDED PRESCRIPTION OTC Calcium, magnesium , zinc* Patient not taking: Reported on 08/09/2017 COMPOUNDED PRESCRIPTION OTC Tylenol for arthritis - 6* Patient not taking: Reported on 08/09/2017 COMPOUNDED PRESCRIPTION KNEE HIGH COMPRESSION STOCKIN* Problem List As Of Date 08/09/2017 Noted Resolved COMMON MIGRAINE W/O MENTN INTRACT [G43.009] BIPOLAR DISORDER NOS [F31.9] Knee pain, acute [M25.569] INVALID FOR* More... Morbid obesity with BMI of 40.0-44.9, adult (HC*INVALID FOR* More... PTSD (post-traumatic stress disorder) [F43.10] INVALID FOR* Type 2 diabetes mellitus without complication (*INVALID FOR* Essential hypertension with goal blood pressure*INVALID FOR* Prescriptions ordered this encounter Disp Refills Start End GABAPENTIN 300 MG CAPSULE 270 * 1 08/09/2017 02/05/2018 Route: ORAL Sig: Take 1 capsule by mouth three times daily for 180 days. ETODOLAC 400 MG TABLET 180 * 3 08/09/2017 Sig: TAKE ONE TABLET BY MOUTH 2 TIMES A DAY BLOOD SUGAR DIAGNOSTIC STRIPS 300 * 3 08/09/2017 Sig: Test blood sugar(s) 2x daily. Dx: E11.65. Insulin: No CHOLECALCIFEROL (VITAMIN D3) 50,000 * 12 c* 0 08/09/2017 Route: ORAL Sig: Take 1 capsule by mouth once each week. Medications Discontinued During This Encounter gabapentin (NEURONTIN) 300 mg capsule 90 c* 1 12/29/2016 08/09/2017 Route: ORAL Sig: Take 1 capsule by mouth three times daily. Disc: Reason for discontinue is not on file. etodolac (LODINE) 400 mg tablet 60 t* 0 05/03/2017 08/09/2017 Class: Print RX Sig: TAKE ONE TABLET BY MOUTH 2 TIMES A DAY Disc: Reason for discontinue is not on file. blood sugar diagnostic (FREESTYLE LI* 100 * 11 04/28/2016 08/09/2017 Sig: Test blood sugar(s) 2x daily. Dx: E11.65. Insulin: No Disc: Reason for discontinue is not on file. Disposition: Return in about 3 months (around 11/09/2017) for DM, HTN, neuropathy. Follow-up and Disposition History Recorded Encounter Status:Closed by KUSHAL FORD CNP on 08/09/17 PROGRESS Observed: 08/09/2017 Status: COMPLETED Source: [place] 9:27 AM [facility] RE[facility] HNO ID: [id number] Author: Kushal Ford Service: (none) Author Type: Nurse Practitioner Type: Progress Notes Filed: 08/09/2017 10:01 AM Note Text: Desiree Small is a 41 year old female who presents in follow up of DM, HTN and Hyperlipidemia. Was previously off of Victoza as she was waiting on insurance coverage. She was off of it for one year. States that she did start taking it in April. Does have neuropathy in her bilateral feet. She has been without her gabapentin since March. Does have a low vitamin D level. Does have periods of leg swelling. Usually occurring during the day and will resolve with leg elevation. Had a normal PVR completed last year. Insurance will not cover compression hoses due to diagnosis of leg swelling not being sufficient. DIABETES MELLITUS: Ms. Small was last seen on 11/2016. Since our last visit she denies excessive thirst or increased frequency of urination, chest pain or dyspnea , new or unusual visual symptoms, low sugar/hypoglycemic reactions, weight loss/gain, lightheadedness/dizziness and bowel changes/loose stools. Patient does have some numbness of feet. She does not check feet. Education about appropriate diabetic foot care given. Follows a diabetic diet some of the time. She is compliant with medication(s) and is tolerating med(s) without any side effects. She reports checking her glucose on a twice a day, before breakfast and after meals occasionally (usually 1 hour after) schedule with sugars in the fasting 200s and postprandial 320 range. Patient's last HgA1C was Hemoglobin A1C (%) Date Value 08/05/2017 10.2 11/17/2016 9.4 ) Last Ophthalmology exam was within the past 12 months Last Podiatry exam was within the past 12 months HTN: Ms. Small indicates that she is feeling well and denies any symptoms referable to elevated blood pressure. Specifically denies headache, chest pain, palpitations and dyspnea. Patient denies any side effects of her medication(s) and is compliant with their regimen. She does not check BP's generally. Desiree gets minimal exercise. She watches her diet for sodium, low fat and low cholesterol some of the time. Last 3 Encounter BP Readings: Date: BP: 08/09/2017 129/91, 126/86 11/17/2016 110/68 08/19/2016 102/70 Hyperlipidemia. Ms. Small reports doing well on current therapy of atorvastatin (Lipitor) 40 mg. Denies side effects of muscle weakness or achiness. Her most recent lipid panels are: Cholesterol, Total (mg/dL) Date Value 08/05/2017 167 07/22/2016 154 HDL Cholesterol (mg/dL) Date Value 08/05/2017 35 07/22/2016 35 LDL Cholesterol (mg/dL) Date Value 08/05/2017 74 07/22/2016 66 Triglyceride (mg/dL) Date Value 08/05/2017 290 07/22/2016 264 Past Medical, Surgical, Family and Social Histories reviewed and updated today in the History tab of [facility]. Current Medications and allergies reviewed. PAST MEDICAL HISTORY Diagnosis Date - Bipolar disorder, unspecified (HCC) - Migraine without aura, without mention of intractable migraine without mention of status migrainosus - Other psoriasis - Rash and other nonspecific skin eruption - Recovering alcoholic (HCC) - Substance abuse PAST SURGICAL HISTORY Procedure Laterality Date - L'SCOPE DX W/WO BRUSHINGS/WASHINGS 04/04/1999 Laparoscopy L SALPINGECTOMY - REMOVAL GALLBLADDER 09/1999 Cholecystectomy - TREAT ECTOPIC PREG,NON REMVAL 03/1999 Ectopic - TUBAL LIGATION HX 06/19/2003 ACTIVE PROBLEM LIST Migraine Without Aura, Without Mention of Intractable Migraine Without Mention of Status Migrainosus Bipolar Disorder, Unspecified ([facility]) Knee Pain, Acute Morbid Obesity With Bmi of 40.0-44.9, Adult ([facility]) Ptsd (Post-Traumatic Stress Disorder) Type 2 Diabetes Mellitus Without Complication ([facility]) Essential Hypertension With Goal Blood Pressure Less Than 140/90 ALLERGIES: Penicillins; Prednisone; Vicodin [Hydrocodone-Acetaminophen] Current Outpatient Prescriptions: Omeprazole 40 mg capsule TAKE ONE CAPSULE BY MOUTH EVERY DAY atorvastatin (LIPITOR) 40 mg tablet TAKE ONE TABLET BY MOUTH ONCE DAILY glimepiride (AMARYL) 4 mg tablet TAKE TWO TABLETS BY MOUTH ONCE DAILY IN THE MORNING PRIOR TO MEALS lisinopril-hydrochlorothiazide (PRINZIDE,ZESTORETIC) 10-12.5 mg per tablet TAKE ONE TABLET BY MOUTH ONCE DAILY dicyclomine (BENTYL) 10 mg capsule TAKE ONE CAPSULE BY MOUTH BEFORE MEALS AND AT BEDTIME NEEDED acetaminophen (TYLENOL ARTHRITIS PAIN) 650 mg CR tablet Take 1 tablet by mouth every 8 hours as needed. gabapentin (NEURONTIN) 300 mg capsule Take 1 capsule by mouth three times daily. calcium carb-mag ox-zinc gluc 333-133-5 mg tab Take 1 tablet by mouth once daily insulin glargine (BASAGLAR KWIKPEN) 100 unit/mL (3 mL) inpn Inject 35 Units subcutaneously once daily. liraglutide (VICTOZA 2-ASAEL) 0.6 mg/0.1 mL (18 mg/3 mL) pnij Inject 1.8 mg subcutaneously once daily metFORMIN (GLUCOPHAGE) 1,000 mg tablet Take 1 tablet by mouth twice daily with meals. levonorgestrel (MIRENA) 20 mcg/24 hr (5 years) IUD Inserted in office FERROUS SULFATE (IRON ORAL) Take by mouth. insulin needles, DISPOSABLE, (BD INSULIN PEN NEEDLE UF) 31 gauge x 5/16 ndle Use as directed once daily with insulin pen DM: yes Insulin: yes DX:E11.9 blood sugar diagnostic (FREESTYLE LITE STRIPS) test strip Test blood sugar(s) 2x daily. Dx: E11.65. Insulin: No lancets (FREESTYLE LANCETS) 28 gauge misc Test blood sugar(s) 2x daily. Dx: E11.65. Insulin: No glimepiride (AMARYL) 4 mg tablet TAKE TWO TABLETS BY MOUTH ONCE DAILY IN THE MORNING PRIOR TO MEALS (Patient not taking: Reported on 08/09/2017) etodolac (LODINE) 400 mg tablet TAKE ONE TABLET BY MOUTH 2 TIMES A DAY cyanocobalamin (VITAMIN B-12) 1,000 mcg tab Take 1 tablet by mouth once daily. (Patient not taking: Reported on 08/09/2017 ) COMPOUNDED PRESCRIPTION OTC B12 100 mcg daily (Patient not taking: Reported on 08/09/2017 ) COMPOUNDED PRESCRIPTION OTC Calcium, magnesium , zinc 500 mg - takes one 500 mg tablet in the morning and one 500 mg tablet in the evening (Patient not taking: Reported on 08/09/2017 ) COMPOUNDED PRESCRIPTION OTC Tylenol for arthritis - 650 mg tablet - takes two tablets in morning and 2 tablets at night (Patient not taking: Reported on 08/09/2017 ) Compression Knee Highs KNEE HIGH COMPRESSION STOCKINGS 30- 40 MM. DX: EDEMA. Bilateral leg swelling. No current facility-administered medications for this visit. FAMILY HISTORY Problem Relation Age of Onset - Hypertension Mother - Diabetes Mother - Asthma Mother - Alcohol/Drug Mother - Heart Paternal Grandfather [place] Social History Marital status: Spouse name: Years of education: Number of children: Social History Main Topics Smoking status: Former Smoker Packs/day: 0.00 Years: 0.00 Quit date: 03/08/2003 Smokeless tobacco: Never Used Alcohol use: No Comment: recovering alcohol Drug use: No Comment: past history [facility] [place] Sexual activity: Yes Partners with: Male control/protection: Tubal Ligation PHYSICAL EXAM: BP 126/86 Pulse 82 Resp 18 Wt 117.9 kg (260 lb) LMP (LMP Unknown) BMI 47.55 kg/m? BMI 47.55 kg/(m2) General appearance: Alert, cooperative, pleasant, in no acute distress, overweight Head: Normocephalic, atraumatic Eyes: conjunctiva/corneas normal, PERRL Oropharynx: moist without lesions, teeth in good repair Neck: normal, supple, no adenopathy and thyroid normal size, non-tender, without nodularity Heart: normal, regular rate and rhythm, without murmur Lungs: clear to auscultation, without rales or wheeze, good air exchange Ext: no edema in LE bilaterally, good distal pulses Component Latest Ref Rng AND Units 08/05/2017 Protein, Total 6.3 - 8.0 g/dL 7.3 Albumin 3.9 - 4.9 g/dL 4.0 Calcium 8.5 - 10.2 mg/dL 9.4 Bilirubin, Total 0.2 - 1.3 mg/dL 0.4 Alkaline Phosphatase 32 - 117 U/L 114 AST 13 - 35 U/L 25 Glucose 74 - 99 mg/dL 222 (H) BUN 7 - 21 mg/dL 11 Creatinine 0.58 - 0.96 mg/dL 0.67 Sodium 136 - 144 mmol/L 133 (L) Potassium 3.7 - 5.1 mmol/L 4.4 Chloride 97 - 105 mmol/L 92 (L) CO2 22 - 30 mmol/L 24 Anion Gap 9 - 18 mmol/L 17 ALT 7 - 38 U/L 34 eGFR- >60 eGFR-All Other Races . >60 Cholesterol, Total <200 mg/dL 167 Triglyceride <150 mg/dL 290 (H) HDL Cholesterol >39 mg/dL 35 (L) LDL Cholesterol <100 mg/dL 74 Non HDL Cholesterol <130 mg/dL 132 (H) Fasting Time hrs 13 VLDL Cholesterol <30 mg/dL 58 (H) TC:HDL Ratio <5.10 4.77 LDL:HDL Ratio <2.54 2.11 Hemoglobin A1C 4.3 - 5.6 % 10.2 (H) Estimated Average Glucose mg/dL 246 Vitamin D 25 Hydroxy 31.0 - 80.0 ng/mL 24.9 (L) Albumin, Urine Random 0.0 - 23.0 mg/L <12.0 ASSESSMENT/PLAN: 1. Type 2 diabetes mellitus with diabetic polyneuropathy, without long-term current use of insulin (HCC) - ICD9: 250.60, 357.2, ICD10: E11.42 (primary diagnosis) poorly controlled - Continue current medications - Referral to clinical pharmacy. - Encouraged regular aerobic exercise and weight loss - GABAPENTIN 300 MG CAPSULE OARRS website checked and validated. All prescriptions have been APPROPRIATELY filled. No suspicious activity was identified.- 08/09/2017 by Kushal Ford APRN.EYELET CUTTER - BLOOD SUGAR DIAGNOSTIC STRIPS - CONSULT TO AMBULATORY CLINIC PHARMACY - DIABETIC CUSTOM MOLDED SHOE - HGB A1C 2. Essential hypertension with goal blood pressure less than 140/90 - ICD9: 401.9, ICD10: I10 - good control - Continue current medication(s) - Encouraged dietary sodium restriction/DASH diet - Recommended regular aerobic exercise. - Goal of BP <130/80 - COMP METABOLIC PANEL 3. Hyperlipidemia, mixed - ICD9: 272.2, ICD10: E78.2 - good control - Continue current medication. - Encouraged following a low fat, low cholesterol diet. - Discussed the benefits of regular aerobic exercise and weight loss. 4. Vitamin D deficiency - ICD9: 268.9, ICD10: E55.9 - Will supplement. Then advised start vitamin d 2,000 units daily. - CHOLECALCIFEROL (VITAMIN D3) 50,000 UNIT CAPSULE 5. Arthritis of low back (HCC) - ICD9: 721.90, ICD10: M46.90 - Continue current treatment. - ETODOLAC 400 MG TABLET 6. Leg swelling - ICD9: 729.81, ICD10: M79.89 - We will get US for definitive diagnosis so that compression stockings can be ordered and covered by insurance. Symptoms consistent with venous insuffiencey. - [facility] Get labs in 3 months, follow up in 3 months, follow recs from clinical pharmacy. Kushal Ford APRN.JENNY ALBUMIN URINE RANDOM Collected: 08/05/2017 Status: F Source: [place] 8:07 AM [facility] REPOSITORY TYPE CODE TESTS RESULT OUT OF REFERENCE UNITS RANGE LAB UALBR 0.0-23.0 mg/L Albumin Urine <12.0 Random Performed By: #### UALBR #### [facility] [address] [place] [address] COMP METABOLIC PANEL Collected: 08/05/2017 Status: F Source: [place] 8:01 AM [facility] REPOSITORY TYPE CODE TESTS RESULT OUT OF REFERENCE UNITS RANGE LAB TP 6.3-8.0 g/dL Protein, Total 7.3 LAB ALB 3.9-4.9 g/dL Albumin 4.0 LAB CA 8.5-10.2 mg/dL Calcium, Total 9.4 LAB TBIL 0.2-1.3 mg/dL Bilirubin, Total 0.4 LAB ALKP 32-117 U/L Alkaline Phosphatase 114 LAB AST 13-35 U/L AST 25 LAB GLU 74-99 mg/dL Glucose High 222 Result Comment: The [place] [employer] (ADA) provides guidance for cutoff values for fasting glucose and random glucose. The ADA defines fasting as no caloric intake for at least 8 hours. Fas ting plasma glucose results between 100 to 125 mg/dL indicate increased risk for diabetes (prediabetes). Fasting plasma glucose results greater than or equal to 126 mg/dL meet the criteria for diagnosis of diabetes. In the absence of unequivocal hyperglycemia, results should be confirmed by repeat testing. In a patient with classic symptoms of hyperglycemia or hyperglycemic crisis, random plasma glucose results greater than or equal to 200 mg/dL meet the criteria for diagnosis of diabetes. Reference: Standards of Medical Care in Diabetes 2016, [place] Diabetes Association. Diabetes Care. 2016.39(Suppl 1). LAB BUN 7-21 mg/dL BUN 11 LAB CRET 0.58-0.96 mg/dL Creatinine 0.67 LAB NA 136-144 mmol/L Sodium Low 133 LAB K 3.7-5.1 mmol/L Potassium 4.4 LAB CL 97-105 mmol/L Chloride Low 92 LAB CO2 22-30 mmol/L CO2 24 LAB AGAP 9-18 mmol/L Anion Gap 17 LAB ALT 7-38 U/L ALT 34 LAB GFRAA eGFR- Amer. >60 LAB GFRNAA . eGFR-All Other Races >60 Result Comment: eGFR (Estimated GFR) Units of measure: mL/min/1.73 meters squared eGFR is derived from the reexpressed MDRD Study equation using the following parameters: serum creatinine, age, gender and race. The creatinine assay has been calibrated to be traceable to IDMS. An eGFR <60 mL/min/1.73m2 for >3 months is consistent with chronic kidney disease. Refer to KDOQI guidelines for clinical interpretation. In patients with unstable renal function, e.g. those with acute kidney injury, the eGFR may not accurately reflect actual GFR. Performed By: #### CMP, LIPB, HBA1C, VITD #### [facility] [address] [place], [place] [address] LIPID PANEL, BASIC Collected: 08/05/2017 Status: F Source: [place] 8:[address] [facility] REPOSITORY TYPE CODE TESTS RESULT OUT OF REFERENCE UNITS RANGE LAB CHOL <200 mg/dL Cholesterol 167 Result Comment: <200 mg/dL, Desirable 200-239 mg/dL, Borderline high >239 mg/dL, High LAB TRIGLY <150 mg/dL Triglyceride High 290 Result Comment: <150 mg/dL, Normal 150-199 mg/dL, Borderline high 200-499 mg/dL, High >499 mg/dL, Very high LAB HDL >39 mg/dL HDL-Cholesterol Low 35 Result Comment: 40-59 mg/dL, Acceptable >59 mg/dL, High: Negative risk factor for coronary heart disease <40 mg/dL, Low: Positive risk factor for coronary heart disease LAB LDL <100 mg/dL LDL-Cholesterol 74 Result Comment: <100 mg/dL, Optimal 100-129 mg/dL, Near optimal/above optimal 130-159 mg/dL, Borderline high 160-189 mg/dL, High >189 mg/dL, Very high Secondary prevention optimal LDL Cholesterol levels are recommended to be < 70 mg/dL LAB NONHDL <130 mg/dL Non HDL High Cholesterol 132 Result Comment: <130 mg/dL, Optimal 130-159 mg/dL, Near optimal/above optimal 160-189 mg/dL, Borderline high 190-219 mg/dL, High >219 mg/dL, Very high Secondary prevention optimal non HDL Cholesterol levels are recommended to be < 100 mg/dL LAB FT hrs Fasting Time 13 LAB VLDL <30 mg/dL High VLDL Cholesterol 58 LAB TCHDL <5.10 TC:HDL Ratio 4.77 LAB LDLHDL <2.54 LDL:HDL Ratio 2.11 Result Comment: Reference: 1. National Cholesterol Education Program ATP III Guideline At-A-Glance Quick Desk Reference: National Heart, Lung, and Blood [place]. National Institutes of Health. 2001: NIH Publication No. 01-3305. 2. An International Atherosclerosis Society position paper: global recommendations for the management of dyslipidemia: executive summary, Atherosclerosis. 2014: 232(2):410-413. Performed By: #### CMP, LIPB, HBA1C, VITD #### [facility] [address] [place], [place] [address] HEMOGLOBIN A1C Collected: 08/05/2017 Status: F Source: [place] 8:01 AM [facility] REPOSITORY TYPE CODE TESTS RESULT OUT OF REFERENCE UNITS RANGE LAB HGBA1C 4.3-5.6 % High Hemoglobin A1c 10.2 LAB HBA0 mg/dL Est. Average Glucose 246 Result Comment: eAG: (Estimated average glucose) is a calculated value from HgbA1c and is training representative of the average blood glucose level in the last 2-3 month period. Performed By: #### CMP, LIPB, HBA1C, VITD #### [facility] [address] [place], [place] [address] VITAMIN D 25 HYDROXY Collected: 08/05/2017 Status: F Source: [place] 8:01 AM [facility] REPOSITORY TYPE CODE TESTS RESULT OUT OF REFERENCE UNITS RANGE LAB VITD 31.0-80.0 ng/mL Low Vitamin D 25 24.9 Hydroxy Result Comment: Classification of 25 [place] Vitamin D status: Insufficiency/Moderate Deficiency: < or = 30 ng/mL Sufficiency/Optimal Levels: 31 to 80 ng/mL Toxicity: > 100 ng/mL Test performed by chemiluminescent immunoassay. Performed By: #### CMP, LIPB, HBA1C, VITD #### [facility] [address] [place], [place] [address] CNPN Observed: 07/21/2017 Status: COMPLETED Source: [place] 12:00 AM [facility] REPOSITORY Telephone (AlgaeonWS) DESIREE SMALL ([id number]) 1975 F Date Time Provider Department 07/21/17 [facility] During your visit today, we recorded the following information about you: Brock Joaquin LPN 07/21/2017 11:47 AM Signed Prior Authorization has been completed online at [employer] for Lonnie, will await response. Please keep encounter open until final decision has been received and documented from insurance company. MELISSA MILLIGAN26MK Brock Joaquin LAB CLERK Brock Joaquin LPN 07/27/2017 7:04 PM Signed Message from Plan There is an active Prior Authorization on file for this medication until 06/24/2018. Thank you. Brock Joaquin BENY Allergies As of Date: 07/21/2017 Noted Allergy Reaction PENICILLINS 10/28/2005 10 - Anaphylaxis PREDNISONE 10/13/2013 11 - Vomiting Comments: GI upset Date Reviewed: 11/17/2016 Reviewed by: Kushal (Jenny) JENNY Ford - Fully Assessed Reason for Visit: Insurance Authorization [[id number]] Cmt: Victoza Prescriptions as of 07/21/2017 Sig: OMEPRAZOLE 40 MG CAPSULE,IRASEMA* TAKE ONE CAPSULE BY MOUTH SAMIA* GLIMEPIRIDE 4 MG TABLET TAKE TWO TABLETS BY MOUTH ONC* ATORVASTATIN 40 MG TABLET TAKE ONE TABLET BY MOUTH ONCE* ETODOLAC 400 MG TABLET TAKE ONE TABLET BY MOUTH 2 TI* GLIMEPIRIDE 4 MG TABLET TAKE TWO TABLETS BY MOUTH ONC* LISINOPRIL 10 MG-HYDROCHLOROT* TAKE ONE TABLET BY MOUTH ONCE* DICYCLOMINE 10 MG CAPSULE TAKE ONE CAPSULE BY MOUTH BEF* ACETAMINOPHEN ER 650 MG TABLE* Take 1 tablet by mouth every * GABAPENTIN 300 MG CAPSULE Take 1 capsule by mouth three* CYANOCOBALAMIN (VIT B-12) 1,0* Take 1 tablet by mouth once d* CALCIUM CARBONATE 333 MG-MAGN* Take 1 tablet by mouth once d* INSULIN GLARGINE (U-100) 100 * Inject 35 Units subcutaneousl* LIRAGLUTIDE 0.6 MG/0.1 ML (18* Inject 1.8 mg subcutaneously * METFORMIN 1,000 MG TABLET Take 1 tablet by mouth twice * COMPOUNDED PRESCRIPTION OTC B12 100 mcg daily COMPOUNDED PRESCRIPTION OTC Calcium, magnesium , zinc* COMPOUNDED PRESCRIPTION OTC Tylenol for arthritis - 6* LEVONORGESTREL 20 MCG/24 HR (* Inserted in office IRON ORAL Take by mouth. COMPOUNDED PRESCRIPTION KNEE HIGH COMPRESSION STOCKIN* PEN NEEDLE, DIABETIC 31 GAUGE* Use as directed once daily wi* BLOOD SUGAR DIAGNOSTIC STRIPS Test blood sugar(s) 2x daily.* LANCETS 28 GAUGE Test blood sugar(s) 2x daily.* Problem List As Of Date 07/21/2017 Noted Resolved COMMON MIGRAINE W/O MENTN INTRACT [G43.009] BIPOLAR DISORDER NOS [F31.9] Knee pain, acute [M25.569] INVALID FOR* More... Morbid obesity with BMI of 40.0-44.9, adult (HC*INVALID FOR* More... PTSD (post-traumatic stress disorder) [F43.10] INVALID FOR* Type 2 diabetes mellitus without complication (*INVALID FOR* Essential hypertension with goal blood pressure*INVALID FOR* Encounter Status:Closed by BROCK JOAQUIN LPN on 07/27/17 PROGRESS Observed: 05/12/2017 Status: COMPLETED Source: [place] 8:41 AM [facility] REPOSITORY HNO ID: [id number] Author: Lina August Service: (none) Author Type: Employment Office Clerk Type: Progress Notes Filed: 05/12/2017 8:42 AM Note Text: The patient has been identified by name and date of : YES I have scheduled the patient for an appointment on 05/12/2017. The patient will report to the lab prior to the visit. I have pended the following lab orders: CMP HgbA1c Lipids Urine Albumin PHMA Documentation 05/12/2017 Opts out of [facility] No Appointments Scheduled Scheduled CP Appt DM2 with No [place] Record Requested Opthy Appt No DM2 with No Urine Alb Lab Ordered DM2 with No DFE Record Requested A1C > 8.9 Lab Ordered Lina August MA PROGRESS Observed: 05/12/2017 Status: COMPLETED Source: [place] 8:34 AM [facility] REPOSITORY HNO ID: [id number] Author: Kushal Ford CNP Service: (none) Author Type: Nurse Practitioner Type: Progress Notes Filed: 05/12/2017 8:34 AM Note Text: Order filed. Has appt with me today. Kushal Ford CNP PROGRESS Observed: 05/12/2017 Status: COMPLETED Source: [place] 8:26 AM [facility] REPOSITORY HNO ID: [id number] Author: Lina August Service: (none) Author Type: Employment Office Clerk Type: Progress Notes Filed: 05/12/2017 8:34 AM Note Text: PHMA TEAMLET DOCUMENTATION Provider Action/FYI: Patient has appointment Albumin urine needs ordered, Needs Eye exam PSR Action/FYI: Teamlet has identified patient by name and date of . Team: Keysha Field MA, Rehana Camacho MA, Lina August MA, RUBIO Hernandez, Dr. Moon Horta, Monica Webb PSR, Monica Kumar, RN, BSN,CPNQ,CCM ? Last Office Visit:12/14/2016 ? Next Office Visit: 05/12/2017 ? Last BP/Labs: Blood Pressure: Last 3 Encounter BP Readings: Date: BP: 11/17/2016 110/68 08/19/2016 102/70 08/06/2016 122/80 Lipids: Cholesterol, Total (mg/dL) Date Value 07/22/2016 154 05/01/2016 248 HDL Cholesterol (mg/dL) Date Value 07/22/2016 35 05/01/2016 35 LDL Cholesterol (mg/dL) Date Value 07/22/2016 66 05/01/2016 162 Triglyceride (mg/dL) Date Value 07/22/2016 264 05/01/2016 256 HGB A1C: Lab Results Component Value Date HBA1C 9.4 11/17/2016 HBA1C 8.8 07/22/2016 HBA1C 9.4 05/01/2016 TSH: TSH (uU/mL) Date Value 05/01/2016 1.480 03/05/2015 1.550 ) Care Gap: DM - Need Urine Albumin / NOT checked in last 12 months Plan: ? Confirm PCP / Status ? Type of appointment needed: ? Consultation Appointments: ? Labs, HM and Immunization: Diabetic Eye Exam Urine albumin Lina August MA CNPTOUTREACH Observed: 05/12/2017 Status: COMPLETED Source: [place] 12:00 AM [facility] REPOSITORY Patient Outreach (FAMPWS) DESIREE SMALL ([id number]) 1975 F Date Time Provider Department 05/12/17 LINA AUGUST) MILLERPWS During your visit today, we recorded the following information about you: Lina August MA 05/12/2017 8:34 AM Signed PHMA TEAMLET DOCUMENTATION Provider Action/FYI: Patient has appointment Albumin urine needs ordered, Needs Eye exam PSR Action/FYI: Teamlet has identified patient by name and date of . Team: Keysha Field MA, Rehana Camacho MA, Lnia August MA, RUBIO Hernandez, Dr. Moon Horta, Monica Webb PSR, Monica Kumar, RN, BSN,CPNQ,CCM ? Last Office Visit:12/14/2016 ? Next Office Visit: 05/12/2017 ? Last BP/Labs: Blood Pressure: Last 3 Encounter BP Readings: Date: BP: 11/17/2016 110/68 08/19/2016 102/70 08/06/2016 122/80 Lipids: Cholesterol, Total (mg/dL) Date Value 07/22/2016 154 05/01/2016 248 HDL Cholesterol (mg/dL) Date Value 07/22/2016 35 05/01/2016 35 LDL Cholesterol (mg/dL) Date Value 07/22/2016 66 05/01/2016 162 Triglyceride (mg/dL) Date Value 07/22/2016 264 05/01/2016 256 HGB A1C: Lab Results Component Value Date HBA1C 9.4 11/17/2016 HBA1C 8.8 07/22/2016 HBA1C 9.4 05/01/2016 TSH: TSH (uU/mL) Date Value 05/01/2016 1.480 03/05/2015 1.550 ) Care Gap: DM - Need Urine Albumin / NOT checked in last 12 months Plan: ? Confirm PCP / Status ? Type of appointment needed: ? Consultation Appointments: ? Labs, HM and Immunization: Diabetic Eye Exam Urine albumin SUZETTE López, EYELET CUTTER, EYELET CUTTER 05/12/2017 8:34 AM Signed Order filed. Has appt with me today. JENNY Hernandez MA 05/12/2017 8:42 AM Signed The patient has been identified by name and date of : YES I have scheduled the patient for an appointment on 05/12/2017. The patient will report to the lab prior to the visit. I have pended the following lab orders: CMP HgbA1c Lipids Urine Albumin PHMA Documentation 05/12/2017 Opts out of [facility] No Appointments Scheduled Scheduled CP Appt DM2 with No [place] Record Requested Opthy Appt No DM2 with No Urine Alb Lab Ordered DM2 with No DFE Record Requested A1C ANDgt; 8.9 Lab Ordered Lina August MA Allergies As of Date: 05/12/2017 Noted Allergy Reaction PENICILLINS 10/28/2005 10 - Anaphylaxis PREDNISONE 10/13/2013 11 - Vomiting Comments: GI upset Date Reviewed: 11/17/2016 Reviewed by: Kushal (Jenny) JENNY Ford - Fully Assessed Reason for Visit: PHMA/Care Gap Outreach [3605] Primary Visit Diagnosis:Type 2 diabetes mellitus without complication, unspecified skilled nursing insulin use status (HCC) [E11.9] Order(s):ALBUMIN RANDOM URINE [SQUALBR] Order #: [id number] FUTURE Prescriptions as of 05/12/2017 Sig: ATORVASTATIN 40 MG TABLET TAKE ONE TABLET BY MOUTH ONCE* ETODOLAC 400 MG TABLET TAKE ONE TABLET BY MOUTH 2 TI* GLIMEPIRIDE 4 MG TABLET TAKE TWO TABLETS BY MOUTH ONC* LISINOPRIL 10 MG-HYDROCHLOROT* TAKE ONE TABLET BY MOUTH ONCE* OMEPRAZOLE 40 MG CAPSULE,IRASEMA* TAKE ONE CAPSULE BY MOUTH SAMIA* DICYCLOMINE 10 MG CAPSULE TAKE ONE CAPSULE BY MOUTH BEF* ACETAMINOPHEN ER 650 MG TABLE* Take 1 tablet by mouth every * GABAPENTIN 300 MG CAPSULE Take 1 capsule by mouth three* CYANOCOBALAMIN (VIT B-12) 1,0* Take 1 tablet by mouth once d* CALCIUM CARBONATE 333 MG-MAGN* Take 1 tablet by mouth once d* INSULIN GLARGINE (U-100) 100 * Inject 35 Units subcutaneousl* LIRAGLUTIDE 0.6 MG/0.1 ML (18* Inject 1.8 mg subcutaneously * METFORMIN 1,000 MG TABLET Take 1 tablet by mouth twice * COMPOUNDED PRESCRIPTION OTC B12 100 mcg daily COMPOUNDED PRESCRIPTION OTC Calcium, magnesium , zinc* COMPOUNDED PRESCRIPTION OTC Tylenol for arthritis - 6* LEVONORGESTREL 20 MCG/24 HR (* Inserted in office IRON ORAL Take by mouth. COMPOUNDED PRESCRIPTION KNEE HIGH COMPRESSION STOCKIN* PEN NEEDLE, DIABETIC 31 GAUGE* Use as directed once daily wi* BLOOD SUGAR DIAGNOSTIC STRIPS Test blood sugar(s) 2x daily.* LANCETS 28 GAUGE Test blood sugar(s) 2x daily.* Problem List As Of Date 05/12/2017 Noted Resolved COMMON MIGRAINE W/O MENTN INTRACT [G43.009] BIPOLAR DISORDER NOS [F31.9] Knee pain, acute [M25.569] INVALID FOR* More... Morbid obesity with BMI of 40.0-44.9, adult (HC*INVALID FOR* More... PTSD (post-traumatic stress disorder) [F43.10] INVALID FOR* Type 2 diabetes mellitus without complication (*INVALID FOR* Essential hypertension with goal blood pressure*INVALID FOR* Encounter Status:Closed by KUSHAL FORD CNP on 05/12/17 CNCO Observed: 04/23/2017 Status: COMPLETED Source: [place] 12:[address] [facility] [place] REPOSITORY Letter Text Department of Family Medicine [address] [address] 04/23/2017 [place] [place] [place] [address] Dear Desiree, We missed you at your last appointment with Tamika Ford CNP on 12/14/2016 at 01:00 pm. Please call our office at between the hours of 8:00 a.m. and 5:00 p.m. to reschedule or to inform us if this information is in error. We have been trying to contact you to reschedule this appointment. Please call us at [phone]. It is important to know if you cannot keep an appointment so that the time is available for another person. We request that you cancel 24 hours in advance. If cancellation is necessary after that, please call as soon as possible. We appreciate your confidence in choosing the [facility] Medicine Department for your medical care and we look forward to seeing you at your next appointment. CCF #: [id number] Sincerely, Department of Family Medicine Formerly [facility] ALLERGIES ALLERGIES DATE TYPE / NAME / CODE REACTION SEVERITY SOURCE CODE 03/29/2018 Drug Penicillins/F0010 Hives Unknown [facility] Allergy/41 16964(RXNORM) Community 3032328( Hospital OMED CT) Repository 03/29/2018 Drug venom-honey Anaphylaxis Unknown [facility] Allergy/41 bee/[id number](RX Community 1788200(SN NORM) Hospital OMED CT) Repository 08/09/2017 DRUG/45132 HYDROCODONE-ACETA GI UPSET [facility] 1003(SNOME MINOPHEN [address]) Repository 10/13/2013 DRUG PREDNISONE Vomiting [facility] INGREDI/[address] [place] 5789621(SN Repository OMED CT) 10/28/2005 Drug PENICILLINS ANAPHYLAXIS High [facility] Class/[address] [address](SNOM Repository ED CT) ENCOUNTERS ENCOUNTERS ADMIT/DISCHARGE ACCOUNT ADMITTING ENCOUNTER LOCATION SOURCE NUMBER CLASS 03/29/2018/03/30/19 [id number] [place] [address] ing:PCURoom: Repository [id number]: 1 03/29/2018 [id number] [place] BMSBuilding[facility] Repository 03/29/2018 [id number] [place] BMSBuilding:[facility] Repository 03/10/2018/03/11/19 [id number] Ambulatory [address] Repository 02/12/2018/02/13/20 [id number] Emergency [address] ing:ED Repository 11/25/2017/11/26/19 [id number] Ambulatory [address] Repository 11/20/2017/11/23/19 [id number] [place] [address] ing:PCURoom: Repository [id number]: 1 11/20/2017 [id number] [place], [facility] BMSBuilding:[facility] Drew [facility] Repository 11/20/2017/11/23/19 [id number] Ambulatory BMSBuilding:[facility] [place] [address] [place] [address] Repository 08/09/2017/08/11/19 [id number] Ambulatory [address] Repository 08/05/2017/08/06/19 [id number] Ambulatory [address] Repository PAYERS PAYERS ENCOUNTER GUARANTOR PAYER SUBSCRIBER SOURCE 03/29/2018 DESIREE A Primary DESIREE A Chao [id number] [facility] [id number] PLANPolicy Number: Repository [address]Yrt: 330 [id number] [phone] () Date:0264-01-67AV [address] [place] [address] 95738PQ: 03/29/2018 Secondary NOT GIVENUNK Chao Insurance:SELF PAY [facility] Number: Effective Repository Date:2018-03-29 03/29/2018 DESIREE A Primary DESIREE A [place] [id number] Insurance:SHERYL SMALLB: [facility] [id number] PLANPolicy Number: Repository [id number]: 330 [id number] [phone] () Date:9296-15-94WT [address] [place] [address] 77013WA: 03/29/2018 Secondary NOT GIVENUNK [place] Insurance:SELF PAY [facility] Number: Effective Repository Date:2018-03-29 03/29/2018 DESIREE A Primary DESIREE A Chao [id number] Insurance:SHERYL SMALLDOB: [facility] [id number] PLANPolicy Number: Repository [id number]: 330 [id number] [phone] () Date:3688-99-81FR [address] [place] [address] 57467HP: 03/29/2018 Secondary NOT GIVENUNK [place] Insurance:SELF PAY [facility] Number: Effective Repository Date:2018-03-29 02/12/2018 DESIREE A Primary DESIREE A Chao [id number] Insurance:BUCKEYE CODIDOB: [facility] [id number] PLANPolicy Number: Repository [address]Lse: 330 [id number] [phone] (HP) Date:3827-56-69CC [address] [place] [address] [place] 310[address]SV: 02/12/2018 Secondary NOT GIVENUNK Chao Insurance:SELF PAY [facility] Number: Effective Repository Date:2018-02-12 11/20/2017 DESIREE A Primary DESIREE A Chao [id number] Insurance:PANCHITOEYE CODIDOB: [facility] [id number] PLANPolicy Number: Repository [id number]: 330 [id number] [phone] (HP) Date:6770-61-68YF [address] [place] [address] 75693XK: 11/20/2017 Secondary NOT GIVENUNK Chao Insurance:SELF PAY [facility] Number: Effective Repository Date:2017-11-20 11/20/2017 DESIREE A Primary DESIREE A [place] [id number] Insurance:CANDICEE CODIDOB: [facility] [id number] HospitalPolicy Number: Repository [address]Ilb: 330 [id number] [phone] (HP) Date:2340-36-44UL [address] [place] [address] 38538GW: 11/20/2017 Secondary NOT GIVENUNK [place] Insurance:SELF PAY [facility] Number: Effective Repository Date:2017-11-20 11/20/2017 DESIREE A Primary DESIREE A Chao [id number] Insurance:PANCHITOEYE CODIDOB: [facility] [id number] PLANPolic Number: Repository [id number]: 330 [id number] [phone] (HP) Date:7582-14-09BT [address] [place] [address] 81365GB: 11/20/2017 Secondary NOT GIVENUNK [place] Insurance:SELF PAY [facility]: Effective Repository Date:2017-11-20
== END 2018-03-30 11:02 | disposition home or self-care (01) ==
LOC: ED 07:48 → PCU 08:45
PROVIDERS: Admitting Provider Internal Medicine; Emergency Provider Emergency Medicine; Family Provider Family Medicine; PCP Family Medicine; Visit Provider Internal Medicine
DX: R07.89 Other chest pain (principal); E11.65 Type 2 diabetes mellitus with hyperglycemia; E66.01 Morbid (severe) obesity due to excess calories; I10 Essential (primary) hypertension; K21.9 Gastro-esophageal reflux disease without esophagitis; Z23 Encounter for immunization; E78.00 Pure hypercholesterolemia, unspecified; R06.02 Shortness of breath; R06.09 Other forms of dyspnea; E11.40 Type 2 diabetes mellitus with diabetic neuropathy, unspecified; H53.8 Other visual disturbances; Z68.41 Body mass index [BMI] 40.0-44.9, adult; Z71.3 Dietary counseling and surveillance; Z79.899 Other long term (current) drug therapy; Z87.891 Personal history of nicotine dependence; Z82.49 Family history of ischemic heart disease and other diseases of the circulatory system; Z79.4 Long term (current) use of insulin
CPT/HCPCS: 36415; 71045; 78452; 80048; 80061; 82962; 83036; 83880; 84484; 85025; 85610; 85730; 93005; 93017; 93306; 96361; 96374; 96375; 99218; 99285; A9500; J7030; Q9957; 90686; A4216; C8929; G0378; J3030

== ENCOUNTER 2018-07-04 09:49 | Emergency (ER) | payer MEDICAID, SELFPAY ==
[2018-03-29 09:32] VITALS: BMI 42.4
[2018-07-04 09:50] VITALS: BP 167/111; PULSE 111; RESP 18; TEMP 36.6; O2SAT 98; BMI 40.9
--- NOTE | 2018-07-04 10:04 | CT_ITS ---
STUDY: CT ABDOMEN AND PELVIS WITH CONTRAST REASON FOR EXAM: Female, 42 years old. Right lower abdominal pain, prior cholecystectomy. History of ectopic with tube removal. History of hypertension and diabetes. RADIATION DOSAGE (If Supplied By Facility): CTDIvol = ( 20.40 ) mGy, DLP = ( 1299.49 ) mGycm TECHNIQUE: Transaxial images were obtained from the dome of the diaphragm to the symphysis pubis with oral contrast. 100mL ml of Isovue 300 contrast was administered. Sagittal and coronal images were reconstructed. Individualized dose optimization techniques were used for this CT. COMPARISON: None. FINDINGS: Body wall soft tissues: No acute process. Osseous structures: No acute process. Inferior chest: No acute process. Hepatobiliary: Hepatic steatosis with hepatomegaly, craniocaudal right liver 22.5 cm. Cholecystectomy. Nondilated biliary tree. Pancreas: Mild atrophy. Spleen: Normal. Adrenal glands: Normal. Urogenital: Normal kidneys, symmetric nephrograms. Normal collecting systems, ureters, urinary bladder, anteverted uterus, and normal ovaries. There is a simple appearing dominant follicle left ovary measuring 2.1 cm which is expected to be physiologic. There is no adnexal or cul-de-sac free fluid. Pelvic floor and sidewalls and retroperitoneum: No mass or adenopathy. Vasculature: No acute process. Stomach: No acute process. Small bowel and mesentery: No acute process. Large bowel: Normal appendix. Unremarkable large bowel and rectum. Free fluid or free air: None. CT/Abdomen/Pelvis WITH Contrast IMPRESSION: No acute abdominopelvic process is evident. Normal appendix. Normal right ovary. No evidence of enterocolitis or diverticulitis. Physiologic 2.1 cm dominant follicle the left ovary. This may potentially contribute to pelvic pain. Hepatic steatosis with hepatomegaly. Electronically Signed: Rudolph Camarena MD at 12:38 EDT Tel , Service support ,
[2018-07-04 10:30] LABS: Absolute Lymphocyte Count 1.81 X10^3/ul (0.83-4.51); Absolute Neutrophil Count 4.8 X10^3/uL (2.0-7.7); Basophil# 0.05 X10^3/uL; Basophil% 0.7 % (0-1); Eosinophil# 0.19 X10^3/uL; Eosinophils% 2.6 % (0-5); Hematocrit 41.4 % (37-47); Hemoglobin 13.9 g/dl (12.0-15.0); Lymphocyte # 1.81 X10^3/ul (4.0); Lymphocyte % 25.1 % (19-41); Mean Corp Hgb Conc 33.6 g/gl (32-36); Mean Corpuscular Hgb 28.4 pg (27.0-32.0); Mean Corpuscular Volume 84.5 fL (81-99); Mean Platelet Vol. 10.8 fl (6.2-12.0); Monocyte# 0.35 X10^3/uL; Monocyte% 4.9 % (0-10); Neutrophil # 4.79 X10^3/uL (2.7-7.7); Neutrophil % 66.4 % (47-70); Platelet Count 225 K/mm3 (150-450); RBC Distribution Width SD 39.2 fl (35.1-43.9); White Blood Count 7.2 K/mm3 (4.4-11.0)
[2018-07-04 10:31] LABS: POSITIVE COUNT NO; POSITIVE DIFFERENTIAL NO; POSITIVE MORPHOLOGY NO
[2018-07-04] MEDS: Morphine 4 MG/ML Syringe IV (10:33)
[2018-07-04] MEDS: Ondansetron 4 MG/2 ML Vial IV (10:33)
[2018-07-04] MEDS: 0.9% Normal Saline 1,000 ML 125 ML IV (10:33)
[2018-07-04 10:42] LABS: Anion Gap 6 (5-15); BUN 12 mg/dL (7-18); BUN/Creat Ratio 15.2 RATIO (10-20); Calcium,Total 8.6 mg/dL (8.5-10.1); Chloride 101 mmol/L (98-107); Creatinine, Serum 0.79 mg/dL (0.55-1.02); EST Glomerular Filtration Rate 85 mL/min (>60); Est Glom Filt Rate - Afr Amer 103 mL/min (>60); Estimated Creatinine Clearance 74.87 ml/min; Glucose 276 mg/dL (74-106); Potassium 3.8 mmol/L (3.5-5.1); Sodium Level 134 mmol/L (136-145)
[2018-07-04 10:46] LABS: Internal QC Validated? YES +Cl - CLEAR BKGD; Pregnancy, Serum, hCG Quali. NEGATIVE Negative
[2018-07-04 10:48] LABS: Mucous, Urine 0 SEEN /hpf (<or=2+)
[2018-07-04 10:50] LABS: Color, Urine Yellow (Yellow); Glucose, Dipstick 1000 mg/dl (Normal); Ketone-Dipstick 5 mg/dl (Negative); Leukocyte Esterase-Dipstick 25 /ul (Negative); Nitrite-Dipstick Negative (Negative); Occult Blood-Urine 10 /ul (Negative); Protein-Dipstick 30 mg/dl (Negative); Specific Gravity, Urine 1.025 (1.002-1.030); Urine Clarity Sl. Cloudy (Clear); Urine Urobilinogen Normal (Normal)
[2018-07-04 10:51] LABS: Urine Bilirubin Dipstick 3 mg/dL (Negative)
[2018-07-04 10:52] LABS: Lactic Acid 1.9 mmol/L (0.4-2.0)
[2018-07-04 11:11] LABS: Bacteria 2+ /hpf (None Seen); Red Blood Cells-Urine 0-5 SEEN /hpf (0-5); Squamous Epithelial Cells - UA 10-25 SEEN /hpf (5-10); White Blood Cells 5-10 SEEN /hpf (0-5)
[2018-07-04 12:12] VITALS: BP 154/103; PULSE 79; RESP 18; O2SAT 99
[2018-07-04 13:20] VITALS: BP 145/86; PULSE 80; RESP 18; O2SAT 98
--- NOTE | 2018-07-04 13:41 | ED.DCSUM_ITS ---
- ER Visit Summary Date of Service: 07/04/18 Chief Complaint: [Abdominal pain] History of Present Illness: The patient is a 42 F [presents the emergency department complaint of right lower abdominal pain that she is had for about 4 days. Patient noticed a lump in the area that became more painful today. Michael middleton was seen at urgent care and referred to the ER for concern about a hernia. Patient had nausea but no vomiting. She denies urinary symptoms. Patient denies blood in her stool or black tarry stools. Patient has history of GERD, diabetes, and hypertension. Patient's had prior cholecystectomy and a tubal ligation.] Physical Examination: [HEENT-PERRLA, EOMI. Cranial nerves II through XII grossly intact. TMs clear. Mucous membranes moist. No adenopathy. Cardiovascular-regular rate and rhythm without murmur or ectopy Lungs-clear to auscultation, chest wall stable without crepitus or subcu emphysema Abdomen-normoactive bowel sounds, soft. Patient has a small soft tissue swelling measuring approximately 3.5 cm in diameter to the right lower quadrant and pelvic region that seems to be freely movable within the soft tissues. There is no erythema or warmth noted. Slightly tender to palpation. Extremities-intact ?4, normal range of motion, normal pulses, atraumatic] Test Results: [CBC with it was normal. Chemistries unremarkable. Glucose was elevated to 76. Urinalysis was unremarkable. Lactate was normal 1.9. CT flank showed essentially nothing acute and no evidence of hernia.] Emergency Department Course and Treatment: [Patient was medicated with 4 mg of morphine 4 mg of Zofran.] Treatment Plan: [Patient to follow-up with primary care physician and also will refer to general surgery for follow-up. Patient understands that he will have a clear-cut etiology of this soft tissue mass although I suspect it may be a lipoma.] Disposition: [Discharged home in stable condition] Impression: [Abdominal pain Abdominal wall mass-suspect lipoma] This note was generated with [employer] software. It may contain incorrect words, spelling, and punctuation that were not noted in review of the chart prior to signing ED Disposition - Plan for ED Patient: Referrals: Andrez Fischer MD [Primary Care Provider] -
--- NOTE | 2018-07-04 13:43 | DCINST.ED_ITS ---
ED Disposition - Plan for ED Patient: Instructions: ED Abdominal Pain Unkn Cause Prescriptions: Hydrocodone Bitart/Apap 5-325 [[place] 5MG-325MG] 1 tab PO Q4H PRN PRN 2 Days #10 tab PRN Reason: Pain Naproxen [Naprosyn] 500 mg PO BID PRN #20 tab Referrals: Andrez Fischer MD [Primary Care Provider] - Rudolph Recio MD [STAFF PHYSICIAN] - 3-5 Days Additional Instructions: You have a small soft tissue abdominal wall mass and the etiology of it is unclear although I suspect there may be a small fatty tumor. Please follow-up with general surgeon for further work-up.
[2018-07-04 13:54] VITALS: BP 140/90; PULSE 78; RESP 18; O2SAT 99
== END 2018-07-04 13:57 | disposition home or self-care (01) ==
LOC: ED 10:16
PROVIDERS: Emergency Provider Emergency Medicine; Family Provider Family Medicine; PCP Family Medicine
DX: R10.30 Lower abdominal pain, unspecified (principal); R19.00 Intra-abdominal and pelvic swelling, mass and lump, unspecified site; K21.9 Gastro-esophageal reflux disease without esophagitis; E11.9 Type 2 diabetes mellitus without complications; I10 Essential (primary) hypertension; Z90.49 Acquired absence of other specified parts of digestive tract; Z98.51 Tubal ligation status
CPT/HCPCS: 74177; 80048; 81001; 83605; 84703; 85025; 96361; 96374; 96375; 99283; J7030; Q9967; A4216; J2405

== ENCOUNTER 2018-08-19 17:59 | Emergency (ER) | payer MEDICAID, SELFPAY ==
[2018-08-19 18:00] VITALS: BP 164/104; PULSE 81; RESP 15; TEMP 36.3; O2SAT 98; BMI 40.9
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
--- NOTE | 2018-08-19 18:25 | RAD_ITS ---
STUDY: X-RAY - RIGHT SHOULDER REASON FOR EXAM: Female, 42 years old. Fall. Pain. Loss of range of motion. TECHNIQUE: 3 view(s) of the shoulder. COMPARISON: None. FINDINGS: Normal glenohumeral articulation. Normal acromioclavicular joint. Normal acromion. There is no acute fracture, dislocation or destructive osseous pathology. Normal humeral head and visualized proximal humerus. The soft tissue structures are unremarkable. Normal visualized pulmonary apex. RAD/Shoulder min 2 Views IMPRESSION: Normal x-ray examination of the shoulder. Electronically Signed: Cesar Smith DO at 18:53 EDT Tel [phone], Service support ,
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
--- NOTE | 2018-08-19 19:02 | ED.DEP ---
ED Disposition - Plan for ED Patient: Disposition: Home or Assisted Living Instructions: ED Head Injury Closed, ED Contusion Shoulder Referrals: Andrez Fischer MD [Primary Care Provider] - 1 Week if not improving Additional Instructions: Ice to your right shoulder. Tylenol Motrin for both her headache and your shoulder pain. Follow-up if not improving.
[2018-08-19] MEDS: Ketorolac 60 MG/2 ML Vial IM (19:09)
== END 2018-08-19 19:12 | disposition home or self-care (01) ==
PROVIDERS: Emergency Provider Emergency Medicine; Family Provider Family Medicine; PCP Family Medicine
DX: S09.90XA Unspecified injury of head, initial encounter (principal); S40.011A Contusion of right shoulder, initial encounter; W22.8XXA Striking against or struck by other objects, initial encounter; Y93.9 Activity, unspecified; Y92.89 Other specified places as the place of occurrence of the external cause; Y99.9 Unspecified external cause status; E11.9 Type 2 diabetes mellitus without complications; I10 Essential (primary) hypertension
CPT/HCPCS: 73030; 99282

== ENCOUNTER 2019-01-12 15:37 | Emergency (ER) | payer MEDICAID, SELFPAY ==
[2019-01-12 15:38] VITALS: BP 166/120; PULSE 86; RESP 15; TEMP 36.2; O2SAT 98; BMI 40.9
--- NOTE | 2019-01-12 16:10 | RAD_ITS ---
STUDY: X-RAY - RIGHT SHOULDER REASON FOR EXAM: Female, 43 years old. Right shoulder pain TECHNIQUE: 4 view(s) of the shoulder. COMPARISON: None. FINDINGS: Normal glenohumeral articulation. Normal acromioclavicular joint. Normal acromion. Normal humeral head and visualized proximal humerus. The soft tissue structures are unremarkable. Normal visualized pulmonary apex. RAD/Shoulder min 2 Views IMPRESSION: Normal x-ray examination of the shoulder. Electronically Signed: Tereso Bustillos MD at 16:39 EST , Service support ,
--- NOTE | 2019-01-12 17:14 | ED.DCSUM_ITS ---
- ER Visit Summary Date of Service: 01/12/19 Chief Complaint: Right shoulder pain History of Present Illness: The patient is a 43 F who presents with right shoulder pain that has been getting worse over the past week. Patient states the pain is worse over the anterior aspect of the right shoulder. Patient states pain is worse with certain movements. Patient denies any trauma or injury. Patient describes the pain as throbbing. Patient states that today she woke up with her hand feeling numb and tingling. Patient denies any weakness. Patient states nothing makes her pain better. Patient states she has been taking ibuprofen with no relief. Physical Examination: Vital signs are stable. Patient is afebrile. Patient is in no acute distress. Musculoskeletal exam reveals tenderness over the anterior aspect of the right shoulder over the bicep tendon. There is decreased range of motion with abduction secondary to pain. There is good internal and external rotation. There is mild pain with flexion but there is good range of motion in flexion and extension. There is no deformity noted. There is no bony crepitance or step-off. Radial pulses are equal bilaterally. Sensation was intact to light touch in the radial, median, and ulnar areas. Strength is 5/5 in the radial, median, and ulnar areas. Test Results: X-rays of the right shoulder were obtained. There is no acute fracture or dislocation noted. These were interpreted by the radiologist and reviewed by myself. Emergency Department Course and Treatment: Patient was instructed to continue using ice to the area. Patient was instructed to stop taking her ibuprofen. Patient was given a prescription for meloxicam. Patient was instructed to follow-up with her primary care physician in 5 to 7 days. Patient understood and was agreeable with the plan. All questions were answered. Disposition: Discharge home Impression: Tendinitis right shoulder This note was generated with [employer] dictation software. It may contain incorrect words, spelling, and punctuation that were not noted in review of the chart prior to signing ED Disposition - Plan for ED Patient: Disposition: Home or Assisted Living Diagnosis: Tendinitis of right shoulder Instructions: Shoulder Problems Prescriptions: Meloxicam 15 mg PO DAILY PRN #20 tab PRN Reason: Pain/Inflammation Prescription Printed Referrals: Andrez Fischer MD [Primary Care Provider] - 3-5 Days
[2019-01-12] MEDS: Ketorolac 60 MG/2 ML Vial IM (17:53)
== END 2019-01-12 18:12 | disposition home or self-care (01) ==
LOC: ED 17:55
PROVIDERS: Emergency Provider Emergency Medicine; Family Provider Family Medicine; PCP Family Medicine
DX: M75.91 Shoulder lesion, unspecified, right shoulder (principal); E11.9 Type 2 diabetes mellitus without complications; I10 Essential (primary) hypertension
CPT/HCPCS: 73030; 96372; 99283

== ENCOUNTER 2019-01-30 23:26 | Emergency (ER) | payer MEDICAID, SELFPAY ==
[2019-01-30 23:27] VITALS: BP 152/107; PULSE 89; RESP 22; TEMP 36.3; O2SAT 98; BMI 44.8
--- NOTE | 2019-01-30 23:32 | EKG12_ITS ---
Test Reason : SOB Blood Pressure : / mmHG Vent. Rate : 086 BPM Atrial Rate : 086 BPM P-R Int : 134 ms QRS Dur : 080 ms QT Int : 384 ms P-R-T Axes : 033 017 014 degrees QTc Int : 459 ms Normal sinus rhythm Normal ECG Confirmed by GEORGINA SANTIAGO, ANGELLA ([id number]), market editor LEATHA GUIDRY ([id number]) on 02/01/2019 10:52:39 AM Referred By: MOY Confirmed By:ANGELLA ERICKSON MD
--- NOTE | 2019-01-30 23:34 | ED.VIS.GEN ---
History of Present Illness Chief Complaint: Shortness of Breath Informant: Patient Onset: Weeks Context: Gradual Onset Timing: Continuous Current Severity: Moderate Maximum Severity: Moderate Narrative: The patient is a 43-year-old female with history of insulin-dependent diabetes and hypertension who presents to the emergency department with cough and shortness of breath. The patient states that symptoms have been going on for the past week. She states she feels like she cannot catch her breath. She has had coughing fits with bouts of posttussive emesis. She does not think she has had fever, but she does admit to chills and sweats. She is also been nauseated. She states she has chest pain, but only with coughing. She also intermittently feel like her heart is racing. She has no history of pulmonary embolus. She denies any other systemic symptoms. Prior similar symptoms: No Recent Illness/Hospitalization: No Past Medical History - Allergies and Home Meds Allergies/Adverse Reactions: Allergies Penicillins Allergy (Verified 01/12/19 17:47) Hives venom-honey bee [bee venom (honey bee)] Allergy (Verified 01/12/19 17:47) Anaphylaxis Primary Care Physician: Andrez Fischer MD [Primary Care Provider] - Prior records reviewed: Yes Past Medical History: - - Diabetes, hypertension Surgical History: noncontributory, - - Cholecystectomy, ectopic ; tubal ligation. Smoking Status: Current every day smoker - Family History Paternal Family History: Reports: No pertinent history Sibling Family History: Reports: No pertinent history Maternal Family History: Reports: Diabetes, Hypertension Review of Systems General: Reports: Chills. Denies: Fever, Sweats Eyes: Denies: Visual changes - bilaterally, Diplopia ENT: Denies: Rhinorrhea, Sore throat Cardiovascular: Denies: Chest pain, Palpitations Respiratory: Reports: Cough, Sputum, Dyspnea on exertion. Denies: Dyspnea Gastrointestinal: Denies: Abdominal pain, Nausea, Vomiting, Diarrhea, Melena, Hematochezia Genitourinary: Denies: Dysuria, Hematuria, Frequency Musculoskeletal: Denies: Back pain, Extremity Pain Skin: Denies: Rash, Wounds Neurological: Denies: Headache, Weakness, Numbness Physical Exam Vital Signs/Narrative: Vital Signs Temp Pulse Resp BP Pulse Ox 01/30/19 23:27 97.4 F L 89 22 H 152/107 H 98 Inital Vital Signs reviewed: Yes General: Well nourished, Well developed, No Acute Distress Head: Normocephalic, Atraumatic Eyes: Perrl, EOMI ENT: Moist mucous membranes, No rhinorrhea Neck: Supple, Nontender Cardiovascular: Regular rate, Regular rhythm, No murmurs Respiratory: No distress, Chest nontender, Wheezing, Decreased Air Movement Abdomen: Soft, Nontender, Nondistended, Normal bowel sounds Back: Nontender, Normal Inspection Extremities: Nontender, No edema Skin: Normal color, No rash Neurological: Alert, Oriented x3, Cranial nerves II-XII grossly intact, Normal Strength, Normal Sensation Psychological: Normal affect, Normal Mood Diagnostic/Tx/Re-eval Chest X-Ray - ED: 2 View, Read by ED Physician, Normal, Heart, Lungs, Mediastinum Clinical Impression(s) from Imaging Studies Chest X-Ray 01/31/19 00:00 IMPRESSION: No demonstrated acute cardiopulmonary process. Electronically Signed: Rosaura Pierre MD at 0:27 EST Tel , Service support , Abnormal Lab Results 01/31/19 01/31/19 00:02 00:02 WBC 6.8 RBC 4.77 Hgb 14.2 Hct 42.2 MCV 88.5 MCH 29.8 MCHC 33.6 RDW Std Deviation 39.2 RDW Coeff of Johnnie 12.0 Plt Count 184 MPV 10.7 Immature Gran % (Auto) 0.300 Neut % (Auto) 61.5 Lymph % (Auto) 27.0 Brewster % (Auto) 6.5 Eos % (Auto) 4.0 Baso % (Auto) 0.7 Absolute Neuts (auto) 4.2 Absolute Lymphs (auto) 1.82 Nucleated RBC % 0 Sodium 134 L Potassium 4.2 Chloride 101 Carbon Dioxide 24.0 Anion Gap 9 BUN 10 Creatinine 0.88 Estim Creat Clear Calc 66.54 Est GFR (MDRD) Af Amer 91 Est GFR (MDRD) Non-Af 75 BUN/Creatinine Ratio 11.4 Glucose 416 H Calcium 8.6 Troponin I < 0.015 - Medical Decision Making Patient presents with cough and shortness of breath. Her symptoms do seem most consistent with a bronchitis. She does have a smoking history. She was wheezing all lung thomson. IV was established. She was given fluids antiemetics, and Solu-Medrol. The patient was given nebulized breathing treatments with improvement of aeration. She is resting much more comfortably. Her x-ray does not show focal infiltrate. She has had productive sputum I do suspect she likely has underlying lung disease. I am going to treat her as a COPD exacerbation with inhaler and doxycycline. I am hesitant to place her on more steroids as she is a poorly controlled diabetic and her blood sugar is already 400. She is agreeable with this plan of care. Patient will be discharged home. Impression 1. Bronchitis with bronchospasm ED Disposition - Plan for ED Patient: Instructions: BRONCHITIS, Antiobiotic Treatment (Adult) Prescriptions: Doxycycline 100 mg PO BID #20 cap Prescription Printed Referrals: Andrez Fischer MD [Primary Care Provider] -
[2019-01-30] MEDS: Ipratropium/Albuterol Sulfate 3 ML AMPUL.NEB INHALATION (23:45)
[2019-01-30] MEDS: Albuterol 2.5 MG/3 ML VIAL.NEB. INHALATION (23:45)
[2019-01-30 23:56] VITALS: PULSE 98; RESP 18
[2019-01-30] MEDS: 0.9% Normal Saline 1,000 ML 150 ML IV (23:58)
--- NOTE | 2019-01-31 | RAD_ITS ---
STUDY: X-RAY CHEST REASON FOR EXAM: Female, 43 years old. Shortness of breath cough TECHNIQUE: PA and lateral views of the chest. COMPARISON: 03/29/2018. FINDINGS: The lungs are clear and expanded. There is no demonstrated pleural abnormality. Normal size heart. Normal mediastinum and alethea. Normal visualized pulmonary arteries. Normal visualized aortic arch and descending thoracic aorta. Normal visualized thoracic spine. Normal visualized ribs, clavicles, and shoulders. Postoperative changes in the right upper quadrant status post cholecystectomy.. RAD/Chest PA and Lateral IMPRESSION: No demonstrated acute cardiopulmonary process. Electronically Signed: Rosaura Pierre MD at 0:27 EST Tel , Service support ,
[2019-01-31] MEDS: Ondansetron 4 MG/2 ML Vial IV (00:08)
[2019-01-31] MEDS: MethylPREDNISolone 125 MG/2 ML Vial IV (00:08)
[2019-01-31 00:14] LABS: Absolute Lymphocyte Count 1.82 X10^3/uL (0.83-4.51); Absolute Neutrophil Count 4.2 X10^3/uL (2.0-7.7); Basophil# 0.05 X10^3/uL; Basophil% 0.7 % (0-1); Eosinophil# 0.27 X10^3/uL; Hematocrit 42.2 % (37-47); Hemoglobin 14.2 g/dL (12.0-15.0); Lymphocyte # 1.82 X10^3/ul (4.0); Mean Corp Hgb Conc 33.6 g/dL (32-36); Mean Corpuscular Hgb 29.8 pg (27.0-32.0); Mean Corpuscular Volume 88.5 fL (81-99); Mean Platelet Vol. 10.7 fl (6.2-12.0); Monocyte# 0.44 X10^3/uL; Monocyte% 6.5 % (0-10); NRBC Flagged by Analyzer 0 % (0-5); Neutrophil # 4.15 X10^3/uL (2.7-7.7); Neutrophil % 61.5 % (47-70); Platelet Count 184 K/mm3 (150-450); RBC Distribution Width SD 39.2 fl (35.1-43.9); Red Blood Count 4.77 M/mm3 (4.2-5.4); White Blood Count 6.8 K/mm3 (4.4-11.0)
[2019-01-31 00:40] LABS: Anion Gap 9 (5-15); BUN 10 mg/dL (7-18); BUN/Creat Ratio 11.4 RATIO (10-20); Calcium,Total 8.6 mg/dL (8.5-10.1); Chloride 101 mmol/L (98-107); Creatinine, Serum 0.88 mg/dL (0.55-1.02); EST Glomerular Filtration Rate 75 mL/min (>60); Est Glom Filt Rate - Afr Amer 91 mL/min (>60); Estimated Creatinine Clearance 66.54 ml/min; Glucose 416 mg/dL (74-106); Potassium 4.2 mmol/L (3.5-5.1); Sodium Level 134 mmol/L (136-145)
[2019-01-31 00:47] VITALS: BP 173/96; PULSE 99; RESP 17; O2SAT 94
[2019-01-31] MEDS: Doxycycline 100 MG CAPSULE PO (00:53)
[2019-01-31 00:59] VITALS: O2SAT 96
== END 2019-01-31 01:00 | disposition home or self-care (01) ==
LOC: ED 23:52
PROVIDERS: Emergency Provider Emergency Medicine; Family Provider Family Medicine; PCP Family Medicine
DX: J40 Bronchitis, not specified as acute or chronic (principal); F17.200 Nicotine dependence, unspecified, uncomplicated; E11.9 Type 2 diabetes mellitus without complications; I10 Essential (primary) hypertension
CPT/HCPCS: 71046; 80048; 84484; 85025; 93005; 94640; 99285; J7030; A4216; J2405

== ENCOUNTER 2019-03-12 22:33 | Emergency (ER) | payer MEDICAID, SELFPAY ==
[2019-03-12 22:34] VITALS: BP 193/114; PULSE 82; RESP 16; TEMP 36.8; O2SAT 98; BMI 43.6
[2019-03-12 22:42] VITALS: O2SAT 99
--- NOTE | 2019-03-12 22:47 | EKG12_ITS ---
Test Reason : Blood Pressure : / mmHG Vent. Rate : 081 BPM Atrial Rate : 081 BPM P-R Int : 136 ms QRS Dur : 084 ms QT Int : 378 ms P-R-T Axes : 042 020 033 degrees QTc Int : 439 ms Normal sinus rhythm Normal ECG Confirmed by GEORGINA SANTIAGO, ANGELLA ([id number]), film editor ARPITA REDMAN ([id number]) on 03/14/2019 8:56:58 AM Referred By: VISHAL Confirmed By:ANGELLA ERICKSON MD
--- NOTE | 2019-03-12 22:47 | RAD_ITS ---
STUDY: X-RAY CHEST REASON FOR EXAM: Female, 43 years old. SHORT OF BREATH TECHNIQUE: PA and lateral views of the chest. 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 The lungs are clear and expanded. There is no demonstrated pleural abnormality. Normal size heart. Normal mediastinum and alethea. Normal visualized pulmonary arteries. Normal visualized aortic arch and descending thoracic aorta. Normal visualized thoracic spine. Normal visualized ribs, clavicles, and shoulders. There is no demonstrated abnormality of the visualized soft tissue structures of the upper abdomen. RAD/Chest PA and Lateral IMPRESSION: Normal x-ray examination of the chest. Electronically Signed: Horace Becerril MD at 23:36 EST , Service support ,
[2019-03-12] MEDS: Ipratropium/Albuterol Sulfate 3 ML AMPUL.NEB INHALATION (22:50)
[2019-03-12 22:55] VITALS: BP 177/100; PULSE 79; RESP 21; O2SAT 95
[2019-03-12] MEDS: hydrALAZINE 20 MG/ML Vial 10 MG IV (22:56)
[2019-03-12 23:04] VITALS: PULSE 104; RESP 16
[2019-03-12 23:05] LABS: Absolute Lymphocyte Count 2.16 X10^3/uL (0.83-4.51); Absolute Neutrophil Count 3.9 X10^3/uL (2.0-7.7); Basophil# 0.05 X10^3/uL; Basophil% 0.7 % (0-1); Eosinophil# 0.26 X10^3/uL; Eosinophils% 3.9 % (0-5); Hematocrit 40.7 % (37-47); Hemoglobin 13.5 g/dL (12.0-15.0); Lymphocyte # 2.16 X10^3/ul (4.0); Mean Corp Hgb Conc 33.2 g/dL (32-36); Mean Corpuscular Hgb 29.3 pg (27.0-32.0); Mean Corpuscular Volume 88.5 fL (81-99); Monocyte# 0.33 X10^3/uL; Monocyte% 4.9 % (0-10); NRBC Flagged by Analyzer 0 % (0-5); Neutrophil # 3.91 X10^3/uL (2.7-7.7); Neutrophil % 57.9 % (47-70); Platelet Count 202 K/mm3 (150-450); RBC Distribution Width CV 11.9 % (11.6-14.6); White Blood Count 6.8 K/mm3 (4.4-11.0)
[2019-03-12 23:24] LABS: Anion Gap 5 (5-15); BUN 13 mg/dL (7-18); BUN/Creat Ratio 10.3 RATIO (10-20); Calcium,Total 9.2 mg/dL (8.5-10.1); Chloride 100 mmol/L (98-107); Creatinine, Serum 1.26 mg/dL (0.55-1.02); EST Glomerular Filtration Rate 50 mL/min (>60); Est Glom Filt Rate - Afr Amer 60 mL/min (>60); Estimated Creatinine Clearance 46.47 ml/min; Glucose 360 mg/dL (74-106); Potassium 3.9 mmol/L (3.5-5.1); Sodium Level 133 mmol/L (136-145)
--- NOTE | 2019-03-12 23:43 | ED.VIS.GEN ---
History of Present Illness Chief Complaint: Shortness of Breath Informant: Patient Onset: Today Narrative: Patient reports waking this morning with shortness of breath and congestion. She is a hoarse voice. She has a history of hypertension and diabetes. Patient states that she lost her insurance and has been out of many of her medications for the past month. She is still on her diabetes medications but states she only has a few days of this left. - Past Medical History (1) Diabetes Status: Chronic (2) GERD (gastroesophageal reflux disease) Status: Chronic (3) HTN (hypertension) Status: Chronic Past Medical History - Allergies and Home Meds Allergies/Adverse Reactions: Allergies Penicillins Allergy (Verified 03/12/19 22:35) Hives venom-honey bee [bee venom (honey bee)] Allergy (Verified 03/12/19 22:35) Anaphylaxis Primary Care Physician: Andrez Fischer MD [Primary Care Provider] - Prior records reviewed: Yes Surgical History: noncontributory, - - Cholecystectomy, ectopic ; tubal ligation. Lives: Spouse/ Significant Other Smoking Status: Former smoker - Family History Paternal Family History: Reports: No pertinent history Sibling Family History: Reports: No pertinent history Maternal Family History: Reports: Diabetes, Hypertension Review of Systems General: Reports: Chills. Denies: Fever Eyes: Denies: Visual changes - bilaterally ENT: Reports: Sore throat. Denies: Bilateral ear pain Cardiovascular: Reports: Chest pain - Lungs feel tight Respiratory: Reports: Dyspnea, Cough, Sputum Gastrointestinal: Denies: Vomiting, Diarrhea Genitourinary: Denies: Dysuria Musculoskeletal: Reports: Myalgias Skin: Denies: Rash Neurological: Denies: Headache Hematologic: Denies: Easy bruising Allergy: Denies: Uticaria Physical Exam Vital Signs/Narrative: Vital Signs Temp Pulse Resp BP Pulse Ox 03/12/19 23:04 104 H 16 03/12/19 22:55 79 21 H 177/100 H 95 03/12/19 22:34 98.2 F 82 16 193/114 H 98 Inital Vital Signs reviewed: Yes General: Well nourished, Well developed Head: Normocephalic ENT: Moist mucous membranes Neck: Supple Cardiovascular: Regular rate, Regular rhythm Respiratory: No distress, CTA bilaterally - Slightly decreased air movement. Abdomen: Soft, Nontender Extremities: Nontender Skin: Normal color Neurological: Alert, Oriented x3 Psychological: Normal affect Diagnostic/Tx/Re-eval Impressions Chest X-Ray 03/12/19 22:47 IMPRESSION: Normal x-ray examination of the chest. Electronically Signed: Horace Becerril MD at 23:36 EST , Service support , 03/12/19 22:47 Chest PA and Lateral [RAD] Stat Laboratory Results 03/12/19 03/12/19 23:00 23:00 WBC 6.8 RBC 4.60 Hgb 13.5 Hct 40.7 MCV 88.5 MCH 29.3 MCHC 33.2 RDW Std Deviation 38.0 RDW Coeff of Johnnie 11.9 Plt Count 202 MPV 11.0 Immature Gran % (Auto) 0.600 Neut % (Auto) 57.9 Lymph % (Auto) 32.0 [place] % (Auto) 4.9 Eos % (Auto) 3.9 Baso % (Auto) 0.7 Absolute Neuts (auto) 3.9 Absolute Lymphs (auto) 2.16 Nucleated RBC % 0 Sodium 133 L Potassium 3.9 Chloride 100 Carbon Dioxide 28.0 Anion Gap 5 BUN 13 Creatinine 1.26 H Estim Creat Clear Calc 46.47 Est GFR (MDRD) Af Amer 60 Est GFR (MDRD) Non-Af 50 L BUN/Creatinine Ratio 10.3 Glucose 360 H Calcium 9.2 Troponin I < 0.015 - EKG Initial EKG Interpretation: Sinus Rhythm - Sinus at 81 with no acute ischemia. - Medical Decision Making Patient was given a DuoNeb treatment here. On repeat evaluation she is resting comfortably. She is slightly shaky from the breathing treatment and slightly tachycardic with a heart rate of 114. Air movement is improved. I do not appreciate any wheezing. Patient was given a dose of hydralazine for her elevated blood pressure. Repeat blood pressure is 147/82. Patient be treated with a course of doxycycline, first dose given here. I did review prior hospital records including admission and discharge notes but do not see that she was previously on blood pressure medication. I will leave a message with social work to contact the patient tomorrow to see if we can provide assistance with medications, insurance, and primary care coverage. She will be given a good Rx card to try to help save on her prescription tonight. ED Disposition - Plan for ED Patient: Disposition: Home or Assisted Living Diagnosis: Bronchitis Instructions: BRONCHITIS, Antiobiotic Treatment (Adult) Prescriptions: Doxycycline 100 mg PO BID #20 capsule Referrals: Andrez Fischer MD [Primary Care Provider] -
[2019-03-12 23:53] VITALS: BP 147/82; PULSE 113; RESP 22; O2SAT 96
[2019-03-12] MEDS: Doxycycline 100 MG CAPSULE PO (23:53)
--- NOTE | 2019-03-13 18:51 | CM.ED ---
Social Work Consult: Resources Informant: Dr. Goodwin Per Dr. Goodwin patient limited in resources and is unable to get needed medication for Diabetes and Hypertension. Telephone call to patient. Introduced self as well as social science instructor role. Patient agreeable to speaking with this social science instructor. Patient stating to have no insurance and is not able to afford insulin. Encouraged patient to reach out to [employer]. Patient stating I have used them in the past. Patient stating to not be sure if [employer] will assist patient due to insulin being expensive. Educated patient on other prescription assistance programs. Patient agreeable to this social science instructor e-mailing patient resource information to: [email or web address]@ [email or web address]. Patient thanking this social science instructor. Encouraged patient to reach out to this social science instructor with any further questions or support. Patient stating to be pending Medicaid at this time. Encourage patient to continue to follow up with Medicaid application. Patient stating to also not qualify for disability, but to be working on this. Active listening and support provided. Candelaria Sierra MSW, ALEXANDRA
== END 2019-03-12 23:54 | disposition home or self-care (01) ==
PROVIDERS: Emergency Provider Emergency Medicine; Family Provider Family Medicine; PCP Family Medicine
DX: J40 Bronchitis, not specified as acute or chronic (principal); E11.9 Type 2 diabetes mellitus without complications; I10 Essential (primary) hypertension; K21.9 Gastro-esophageal reflux disease without esophagitis; Z82.49 Family history of ischemic heart disease and other diseases of the circulatory system; Z87.891 Personal history of nicotine dependence; Z88.0 Allergy status to penicillin
CPT/HCPCS: 71046; 80048; 84484; 85025; 93005; 94640; 96374; 99284; A4216

== ENCOUNTER 2019-03-15 01:32 | Observation (INO) | payer MEDICAID, SELFPAY ==
[2019-03-15] VITALS (12 sets, daily range): BP systolic 117–149; BP diastolic 74–110; PULSE 76–114; RESP 16–22; TEMP 36–37.1; O2SAT 94–99; BMI 42.7; BMI 42.4; BMI 42.5
--- NOTE | 2019-03-15 01:34 | ED.RN ---
called for ekg per rn request, pulled old ekgs for
--- NOTE | 2019-03-15 01:37 | RAD_ITS ---
STUDY: X-RAY CHEST REASON FOR EXAM: Female, 43 years old. PT C/O CP X30 MINUTES W/ SYNCOPE TECHNIQUE: Frontal and lateral views of the chest. COMPARISON: 03/12/2019 FINDINGS: The lungs are clear and expanded. There is no demonstrated pleural abnormality. Normal size heart. Normal mediastinum and alethea. Normal visualized pulmonary arteries. Normal visualized aortic arch and descending thoracic aorta. Normal visualized thoracic spine. Normal visualized ribs, clavicles, and shoulders. Cholecystectomy clips. RAD/Chest PA and Lateral IMPRESSION: Normal x-ray examination of the chest. Electronically Signed: Evan Mendez MD at 2:24 EST Tel , Service support ,
--- NOTE | 2019-03-15 01:37 | EKG12_ITS ---
Test Reason : CP Blood Pressure : / mmHG Vent. Rate : 097 BPM Atrial Rate : 097 BPM P-R Int : 138 ms QRS Dur : 082 ms QT Int : 366 ms P-R-T Axes : 044 000 019 degrees QTc Int : 464 ms Normal sinus rhythm Minimal voltage criteria for LVH, may be normal variant Borderline ECG Confirmed by ASHLEY DAS ([id number]), video news editor JOANNE HU ([id number]) on 03/16/2019 10:42:57 AM Referred By: RASHEL Confirmed By:ASHLEY DAS
[2019-03-15 01:45] LABS: Absolute Lymphocyte Count 2.61 X10^3/uL (0.83-4.51); Absolute Neutrophil Count 5.9 X10^3/uL (2.0-7.7); Basophil# 0.08 X10^3/uL; Basophil% 0.9 % (0-1); Eosinophil# 0.27 X10^3/uL; Eosinophils% 2.9 % (0-5); Hematocrit 44.6 % (37-47); Lymphocyte # 2.61 X10^3/ul (4.0); Mean Corp Hgb Conc 33.6 g/dL (32-36); Mean Corpuscular Hgb 29.2 pg (27.0-32.0); Mean Corpuscular Volume 86.9 fL (81-99); Mean Platelet Vol. 10.6 fl (6.2-12.0); Monocyte# 0.48 X10^3/uL; Monocyte% 5.1 % (0-10); NRBC Flagged by Analyzer 0 % (0-5); Neutrophil # 5.85 X10^3/uL (2.7-7.7); Neutrophil % 62.7 % (47-70); Platelet Count 258 K/mm3 (150-450); RBC Distribution Width CV 11.9 % (11.6-14.6); RBC Distribution Width SD 37.6 fl (35.1-43.9); Red Blood Count 5.13 M/mm3 (4.2-5.4); White Blood Count 9.3 K/mm3 (4.4-11.0)
[2019-03-15] MEDS: Aspirin 81 MG TAB.CHEW 324 MG PO (01:48)
[2019-03-15] MEDS: Nitroglycerin SL (ED/IMG/CATH) 0.4 MG TABLET SUBLINGUAL ×3 (01:50→02:10)
[2019-03-15 02:27] LABS: BUN 14 mg/dL (7-18); Creatinine, Serum 0.93 mg/dL (0.55-1.02); Estimated Creatinine Clearance 62.96 ml/min; Glucose 428 mg/dL (74-106)
[2019-03-15 02:28] LABS: Anion Gap 6 (5-15); BUN/Creat Ratio 15.1 RATIO (10-20); Calcium,Total 9.1 mg/dL (8.5-10.1); Chloride 97 mmol/L (98-107); EST Glomerular Filtration Rate 71 mL/min (>60); Est Glom Filt Rate - Afr Amer 86 mL/min (>60); Sodium Level 129 mmol/L (136-145)
--- NOTE | 2019-03-15 02:46 | ED.DCSUM_ITS ---
History of Present Illness Chief Complaint: Chest Pain Informant: Patient Narrative: Patient presenting for evaluation secondary to chest pain and syncope. Patient has an underlying history of diabetes hypertension hyperlipidemia obesity and a family history of premature cardiac disease. Her last stress test was about a year ago. Patient states she was at work today and she had a sudden onset of chest pain. She describes it as a electric type sensation in her chest that was associated with lightheadedness and immediate syncope. Patient states that this was not associated with any sort of seizure-like activity. She is still having chest pain. She does endorse some mild shortness of breath. Patient denies that she has had recent nausea vomiting diarrhea or fevers, but she is undergoing treatment for bronchitis. She denies any DVT or PE risk factors. Review of systems otherwise negative. Past Medical History - Allergies and Home Meds Allergies/Adverse Reactions: Allergies Penicillins Allergy (Verified 03/15/19 01:35) Hives venom-honey bee [bee venom (honey bee)] Allergy (Verified 03/15/19 01:35) Anaphylaxis Primary Care Physician: Andrez Fischer MD [Primary Care Provider] - Past Medical History: - - DM, HTN, HL Surgical History: noncontributory, - - Cholecystectomy, ectopic ; tubal ligation. Smoking Status: Former smoker - Family History Paternal Family History: Reports: No pertinent history Sibling Family History: Reports: No pertinent history Maternal Family History: Reports: Diabetes, Hypertension Review of Systems General: Denies: Chills, Fever, Sweats Eyes: Denies: Visual changes - bilaterally, Diplopia ENT: Denies: Rhinorrhea, Sore throat Cardiovascular: Reports: Chest pain, - - Syncope Respiratory: Denies: Dyspnea, Cough, Dyspnea on exertion Gastrointestinal: Denies: Abdominal pain, Nausea, Vomiting, Diarrhea, Melena, Hematochezia Genitourinary: Denies: Dysuria, Hematuria, Frequency Musculoskeletal: Denies: Back pain, Extremity Pain Skin: Denies: Rash, Wounds Neurological: Denies: Headache, Weakness, Numbness Physical Exam Vital Signs/Narrative: Vital Signs Temp Pulse Resp BP Pulse Ox 03/15/19 02:10 91 117/78 03/15/19 02:01 96 138/80 H 03/15/19 01:50 95 129/87 H 03/15/19 01:33 96.8 F L 106 H 22 H 149/110 H 99 Inital Vital Signs reviewed: Yes General: Well nourished, Well developed, No Acute Distress Head: Normocephalic, Atraumatic Eyes: Perrl, EOMI ENT: Moist mucous membranes, No rhinorrhea Neck: Supple, Nontender Cardiovascular: Regular rate, Regular rhythm, No murmurs Respiratory: No distress, CTA bilaterally, Chest nontender Abdomen: Soft, Nontender, Nondistended, Normal bowel sounds Back: Nontender, Normal Inspection Extremities: Nontender, No edema Skin: Normal color, No rash Neurological: Alert, Oriented x3, Cranial nerves II-XII grossly intact, Normal Strength, Normal Sensation Psychological: Normal affect, Normal Mood Diagnostic/Tx/Re-eval Chest X-Ray - ED: 2 View, Read by ED Physician, Read by Radiologist, Normal - EKG Initial EKG Interpretation: - - Sinus rhythm 97 with LVH, isoelectric ST segments normal T waves no evidence of acute ischemia or arrhythmia - Medical Decision Making Patient presented secondary to chest pain. Work-up including CBC chemistry troponin was remarkable for some mild hyponatremia 129, troponin was negative. EKG shows no ischemic signs. PA and lateral chest x-ray by my personal review as well as radiology is found to be negative. Heart score is 4 I believe the patient requires admission for at the very least observation for her high risk syncope. Patient will be admitted under the hospitalist. ED Disposition - Plan for ED Patient: Disposition: Acute Care Hospital [facility] Diagnosis: Chest pain, Syncope
--- NOTE | 2019-03-15 03:02 | HP.PCM_ITS ---
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 Patient states that she was at work when she had sudden onset of chest pain associated with lightheadedness. Soon after she had syncope that lasted for a few seconds. She had mild shortness of breath but denied any nausea or vomiting no fever. She has not had any history of syncope. This is the first time. She denied any previous sickness before then. She has recently been treated for bronchitis with doxycycline Admitting vitals showed temperature of 96.8F, heart rate 106, BP 149/110, RR 22, Spo2 99%. CBCD is unremarkable. BMP shows sodium 129, potassium 4.0, chloride 97, bicarbonate 26, BUN 14, creatinine 0.93, glucose 428. Admitting chest x-ray was unremarkable. Past Medical History Past Medical History (Chronic Problems): Chronic Problems HTN (hypertension) (Chronic) Diabetes (Chronic) Headache (Chronic) Migraine (Chronic) GERD (gastroesophageal reflux disease) (Chronic) Migraine (Chronic) Allergies Penicillins Allergy (Verified 03/15/19 01:35) Hives venom-honey bee [bee venom (honey bee)] Allergy (Verified 03/15/19 01:35) Anaphylaxis Home Medications: Ambulatory Orders Medication Instructions Recorded Gabapentin 300 mg PO PRN PRN 03/29/18 Naproxen [Naprosyn] 500 mg PO BID PRN #20 tab 07/04/18 Doxycycline 100 mg PO BID #20 cap 03/12/19 Insulin Aspart [Novolog Flexpen] 30 units SQ TID 03/12/19 Insulin Glargine,Hum.rec.anlog 30 unit SQ BID 03/12/19 [Yanique Aquino U-100] Surgical History: - - Cholecystectomy, ectopic ; tubal ligation. 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 Denies: Anorexia, Chills, Fever, Malaise, Weakness, Weight Change Eyes: Denies: Blurred vision, Cataracts, Conjunctivae Inflammation, Pain, Redness HEENT: Denies: Difficulty Hearing, Difficulty Swallowing, Head Aches, Hearing Changes, Sinus Congestion, Sinus Drainage Cardiovascular: Reports: Chest Pain. Denies: Orthopnea, Palpitations, Paroxysmal Noc. Dyspnea Respiratory: Reports: Shortness of Breath. Denies: Cough, Shortness of breath at rest, Shortness of breath upon exertion, Sputum production Gastrointestinal: Denies: Abdominal Pain, Hematemesis, Hematochezia, Nausea, Vomiting Genitourinary: Denies: Dysuria Musculoskeletal: Denies: Joint Pain, Joint Tenderness Skin: Denies: Rash, Wounds Neurological: Denies: Numbness, Tingling, Focal weakness Psychiatric: Denies: Anxiety, Depression, Homicidal Ideations, Suicidal Ideations Hematologic/ Lymphatic: Denies: Easy Bruising, Easy Bleeding VTE Information - Inpt Only VTE Present on Admission: No VTE Pharm Prophylaxis ordered?: Yes Patient Problems: Active and Suspected Problems Chest pain (Acute) Syncope (Acute) - Physical Exam Vitals/I&O's: Vital Signs Temp Pulse Resp BP Pulse Ox 96.8 F L 91 22 H 117/78 99 03/15/19 01:33 03/15/19 02:10 03/15/19 01:33 03/15/19 02:10 03/15/19 01:33 Oxygen Delivery Method Room Air Weight: 106.1 kg Body Mass Index (BMI) 42.7 Finger Stick Blood Glucose 305 General: Alert, Oriented x3, Cooperative, No apparent distress HEENT: Atraumatic, PERRLA, EOMI, Normocephalic Oral: Moist Mucosa Neck: Supple Lungs: Clear to auscultation, Normal air movement Cardiovascular: Regular rate, Regular Rhythm, Normal S1, Normal S2, No murmurs Abdomen: Bowel Sounds Present, Soft, Non Tender, Non-Distended, No Hepato- splenomegaly Extremities: No edema, Capillary Refill Less than 3 Seconds Skin: No rashes, No breakdown Musculoskeletal: No Tenderness to Palpation of Joints or Extremities Neurological: Cranial nerves II-XII grossly intact, Neuro grossly intact Psych/Mental Status: Normal Affect, Appropriate Laboratory Results 03/15/19 01:40: WBC 9.3, RBC 5.13, Hgb 15.0, Hct 44.6, MCV 86.9, MCH 29.2, MCHC 33.6, RDW Std Deviation 37.6, RDW Coeff of Johnnie 11.9, Plt Count 258, MPV 10.6, Immature Gran % (Auto) 0.400, Neut % (Auto) 62.7, Lymph % (Auto) 28.0, [place] % (Auto) 5.1, Eos % (Auto) 2.9, Baso % (Auto) 0.9, Absolute Neuts (auto) 5.9, Absolute Lymphs (auto) 2.61, Nucleated RBC % 0 03/15/19 01:40: Sodium 129 L, Potassium 4.0, Chloride 97 L, Carbon Dioxide 26.0, Anion Gap 6, BUN 14, Creatinine 0.93, Estim Creat Clear Calc 62.96, Est GFR (MDRD) Af Amer 86, Est GFR (MDRD) Non-Af 71, BUN/Creatinine Ratio 15.1, Glucose 428 H, Calcium 9.1, Troponin I < 0.015 Assessment/Plan All Active Problems Chest pain (Acute) Syncope (Acute) Status migrainosus (Acute) 43 year old F with past medical history of type II DM, hypertension comes in with complaints of chest pain and syncope. 1. Acute chest pain, associated with syncope, history of multiple risk factors Syncope likely vasovagal, related to pain EKG shows no acute ST-T changes. Troponins are negative Continue to trend troponins, stress test in a.m., 2D echo 2. Type 2 DM, on insulin, will continue with blood glucose checks and insulin sliding scale 3. Obesity, BMI 42.4, lifestyle modification recommended 4. DVT PPx- early ambulation Code Visit OBSV E&M: [id number] Initial observation care L3
[2019-03-15] MEDS: Acetaminophen 325 MG Tablet 650 MG PO ×2 (04:10→11:06)
--- NOTE | 2019-03-15 05:27 | EKG12_ITS ---
Test Reason : CP ADMIT Blood Pressure : / mmHG Vent. Rate : 080 BPM Atrial Rate : 080 BPM P-R Int : 156 ms QRS Dur : 088 ms QT Int : 414 ms P-R-T Axes : 050 021 031 degrees QTc Int : 477 ms Normal sinus rhythm Normal ECG When compared with ECG of 12-MAR-2019 22:59, No significant change was found Confirmed by ASHLEY DAS ([id number]), newspaper managing editor JOANNE HU ([id number]) on 03/16/2019 11:21:48 AM Referred By: PB Confirmed By:ASHLEY DAS
--- NOTE | 2019-03-15 06:04 | ECHOCS_ITS ---
Reason For Study: Chest Pain Procedure This was a 2D Doppler, Color Flow transthoracic echocardiogram. Contrast injection was performed. Exam performed portable in patient room. Left Ventricle Normal size and thickness. The estimated ejection fraction is 65 %. Normal diastology for age. No regional wall motion abnormalities noted. Right Ventricle Normal size and thickness. Normal systolic function. Atria Normal left atrium. Normal right atrium. Normal atrial septum. Mitral Valve The mitral valve is structurally normal. No prolapse or stenosis seen. Tricuspid Valve Normal tricuspid valve. Unable to estimate RV systolic pressure due to insufficient tricuspid regurgitant envelope. Aortic Valve Normal aortic valve. Trisinus/trileaflet aortic valve. Pulmonic Valve Normal pulmonic valve. Great Vessels Normal aortic root. Normal arch. Normal inferior vena cava. Inferior vena cava collapse with sniff. Pericardium/Pleural No pericardial effusion. Medication Diluted definity 2ml given slow IV push to enhance endocardial definition. MMode/2D Measurements & Calculations LVIDd: 3.9 cm IVSd: 1.1 cm Ao root diam: 2.8 cm LVIDs: 2.6 cm LVPWd: 1.2 cm RVDd: 3.3 cm FS: 33.3 % LAV(MOD-bp): 30.2 ml LVAd ap4: 25.0 cm2 SV(MOD-sp4): 44.0 ml LAV(MOD-bp) Indexed: 14.9 ml/m2 EDV(MOD-sp4): 67.2 ml LAV(MOD-sp2): 33.9 ml EDV(sp4-el): 68.6 ml LAV(MOD-sp4): 23.4 ml LVAs ap4: 13.2 cm2 ESV(MOD-sp4): 23.2 ml ESV(sp4-el): 22.3 ml EF(MOD-sp4): 65.5 % EF(sp4-el): 67.5 % SV(sp4-el): 46.3 ml LA A4 area: 12.5 cm2 LA dimension(2D): 3.7 cm RA A4 area: 10.0 cm2 Doppler Measurements & Calculations MV E max mayank: 55.1 cm/sec Lat Peak E' Mayank: 10.5 cm/sec Med Peak E' Mayank: 6.9 cm/sec MV A max mayank: 66.8 cm/sec E/E' lat: 5.3 E/E' med: 8.0 MV E/A: 0.82 Ao V2 max: 142.8 cm/sec LV V1 max: 111.0 cm/sec PA V2 max: 111.7 cm/sec Ao max P.2 mmHg LV V1 max P.9 mmHg Ao V2 mean: 102.6 cm/sec Ao mean P.6 mmHg Ao V2 VTI: 25.6 cm Interpretation Summary The estimated ejection fraction is 65 %. Normal diastology for age. Unable to estimate RV systolic pressure due to insufficient tricuspid regurgitant envelope. Compared to echo report dated 03/29/2018, no appreciable changes noted. The study was technically difficult. Contrast injection was performed. Ordering Physician: Edyta Arrington Referring Physician: Andrez Fischer Performed By: Ifrah Aguero, LAZARA, RVT
[2019-03-15 06:38] LABS: Absolute Lymphocyte Count 2.33 X10^3/uL (0.83-4.51); Absolute Neutrophil Count 4.9 X10^3/uL (2.0-7.7); Basophil# 0.08 X10^3/uL; Eosinophil# 0.27 X10^3/uL; Eosinophils% 3.3 % (0-5); Hematocrit 40.7 % (37-47); Hemoglobin 13.6 g/dL (12.0-15.0); Lymphocyte # 2.33 X10^3/ul (4.0); Lymphocyte % 28.9 % (19-41); Mean Corp Hgb Conc 33.4 g/dL (32-36); Mean Corpuscular Hgb 29.2 pg (27.0-32.0); Mean Corpuscular Volume 87.3 fL (81-99); Mean Platelet Vol. 10.9 fl (6.2-12.0); Monocyte# 0.44 X10^3/uL; Monocyte% 5.5 % (0-10); NRBC Flagged by Analyzer 0 % (0-5); Neutrophil % 60.7 % (47-70); Platelet Count 210 K/mm3 (150-450); RBC Distribution Width CV 11.9 % (11.6-14.6); Red Blood Count 4.66 M/mm3 (4.2-5.4); White Blood Count 8.1 K/mm3 (4.4-11.0)
[2019-03-15 06:46] LABS: Bedside Glucose 330 mg/dL (70-110)
[2019-03-15 07:25] LABS: ALB/GLOB Ratio 0.8 RATIO (0.9-2.4); AST(SGOT) 19 U/L (15-37); Alanine Aminotransfer ALT/SGPT 36 U/L (13-56); Alkaline Phosphatase 105 U/L (45-117); Anion Gap 5 (5-15); BUN 13 mg/dL (7-18); Calcium,Total 8.6 mg/dL (8.5-10.1); Chloride 100 mmol/L (98-107); Creatinine, Serum 0.76 mg/dL (0.55-1.02); EST Glomerular Filtration Rate 88 mL/min (>60); Est Glom Filt Rate - Afr Amer 107 mL/min (>60); Estimated Creatinine Clearance 77.05 ml/min; Globulin 3.6 g/dL (2.2-4.2); Glucose 358 mg/dL (74-106); Protein, Total 6.6 g/dL (6.4-8.2); Sodium Level 133 mmol/L (136-145)
--- NOTE | 2019-03-15 09:05 | PCA ---
pt off floor
[2019-03-15 11:05] LABS: Bedside Glucose 424 mg/dL (70-110)
[2019-03-15] MEDS: Doxycycline 100 MG CAPSULE PO (11:06)
[2019-03-15] MEDS: Insulin Lispro 100 UNIT/ML INSULN.PEN SC (11:07)
[2019-03-15] MEDS: Insulin Lispro 100 UNIT/ML INSULN.PEN 30 UNIT SC (11:07)
--- NOTE | 2019-03-15 12:13 | STRESSREP ---
Stress Test Report Pharmacologic myocardial perfusion stress test. 43-year-old lady with a history of chest pain. Stress protocol: Rest EKG demonstrates normal sinus rhythm with a rate of 88 bpm normal intervals are noted resting blood pressure is 120/88 mmHg. 0.4 mg of regadenoson was infused per usual protocol followed Intravenous saline flush injection continuous EKG was was performed. The maximum heart rate attained was 116 bpm which was 64% of maximum predicted heart rate the maximum workload was 1 metabolic equivalent. At rest there were no ST or T wave changes noted suggest ischemia and at peak infusion nonspecific ST-T wave changes were noted. No clinical angina was noted. The resting blood pressure was 120/88 with a final blood pressure 130/88. Myocardial perfusion protocol. 14.0 mCi of technetium 99m sestamibi was injected at rest. 0.4 mg of regadenoson was infused per usual protocol peak infusion 44.7 mCi of technetium 99m sestamibi was injected stress images were obtained stress and rest images were reconstructed and compared in the short axis vertical long horizontal long axis. Gated images were also obtained Perfusion SPECT analysis: Review of the stress images demonstrate normal uptake of tracer noted in all areas of the myocardium the resting images similar demonstrate normal uptake of tracer noted in all areas of the myocardium. No areas of reversibility are noted suggest ischemia no previous infarct is noted. Gated SPECT analysis: The gated ejection fraction is 75%. Conclusion: Normal pharmacologic myocardial perfusion stress test. Preserved ejection fraction.
--- NOTE | 2019-03-15 12:43 | DCINST_ITS ---
- Discharge Diagnoses Current Active Problems: Current Active and Chronic Problems Chest pain (Acute) Syncope (Acute) You will use the following diet at home:: No restrictions Discharge Activity: Return to Normal Activity Call your doctor if you observe: Shortness of breath, Dizziness, Fainting spells, Chest pain Allergies/Adverse Reactions: Allergies Penicillins Allergy (Verified 03/15/19 01:35) Hives venom-honey bee [bee venom (honey bee)] Allergy (Verified 03/15/19 01:35) Anaphylaxis Medications to take at Discharge Gabapentin 300 mg PO PRN PRN 03/29/18 Naproxen [Naprosyn] 500 mg PO BID PRN #20 tab 07/04/18 Doxycycline 100 mg PO BID #20 cap 03/12/19 Insulin Aspart [Novolog Flexpen] 30 units SQ TID 03/12/19 Insulin Glargine,Hum.rec.anlog [Basaglar Kwikpen U-100] 30 unit SQ BID 03/12/19 Primary Care Physician: Andrez Fischer MD [Primary Care Provider] - Please follow up with your Primary Care Physician in: 1 Week Test Results: Test results from this visit will be discussed in further detail at your follow- up appointment, if applicable. Proposed Discharge Date: 03/15/19
--- NOTE | 2019-03-15 13:52 | DS.PCM_ITS ---
<Desirae Mora - Last Filed: 03/15/19 15:43> Discharge Date and Diagnosis Date of Admission: 03/15/19 Date of Discharge: 03/15/19 - Primary Discharge Diagnosis Active and Suspected Problems 1. Noncardiac chest pain 2. Syncope 3. Type 2 diabetes mellitus 4. Obesity - Secondary Discharge Diagnosis Chronic Problems HTN (hypertension) (Chronic) Diabetes (Chronic) Headache (Chronic) Migraine (Chronic) GERD (gastroesophageal reflux disease) (Chronic) Migraine (Chronic) Hospital Course and Treatment Imaging Results: Diagnostic Data Chest X-Ray 03/15/19 01:37 IMPRESSION: Normal x-ray examination of the chest. Electronically Signed: Evan Mendez MD at 2:24 EST Tel , Service support , Operations: None Procedures: 2-D Echocardiogram, Stress test Summary of Care Provided: The patient is a 43 year old F admitted 03/15/2019 due to chest pain. 1. Noncardiac chest pain-troponin negative. EKG without ST-T changes. Patient underwent nuclear stress test which was negative for ischemia. Gated ejection fraction 75%. Echocardiogram demonstrated an EF of 65%. Follow-up with primary care provider in 1 week. 2. Syncope-suspect vasovagal syncope. Stress test normal as noted above. Echocardiogram as noted above. Orthostatic vitals mildly positive due to increased heart rate with standing, patient received 500 cc saline bolus. 3. Type 2 diabetes mellitus-significant hyperglycemia during admission. Recommend hemoglobin A1c by primary care provider. Continue home insulin regimen. 4. Obesity-encouraged diet lifestyle modifications. Patient seen and examined prior to discharge. Physical assessment as noted below. Patient is stable for discharge with follow up recommendations as noted above. This patient was seen by OTILIO Gannon under the supervision of Dr. Blank. - Physical Exam Vitals/I&O's: Vital Signs Temp Pulse Resp BP Pulse Ox 97.7 F L 92 18 132/77 H 94 03/15/19 10:00 03/15/19 10:00 03/15/19 10:00 03/15/19 10:00 03/15/19 10:00 Oxygen Delivery Method Room Air Weight: 231 lb 14.821 oz Body Mass Index (BMI) 42.4 Finger Stick Blood Glucose 305 Intake and Output for Last 24 Hours 03/13/19 03/14/19 03/15/19 23:59 23:59 23:59 Intake Total 385 / 385 Balance 385 / 385 General: Alert, Oriented x3, Cooperative HEENT: Atraumatic, PERRLA, EOMI, Normocephalic Neck: Supple, No JVD, Negative Carotid Bruits Lungs: Clear to auscultation, Diminished Cardiovascular: Regular rate, Regular Rhythm, Normal S1, Normal S2, No murmurs Abdomen: Bowel Sounds Present, Soft, Non Tender, Non-Distended, Obese Extremities: No clubbing, No cyanosis, No edema, Capillary Refill Less than 3 Seconds Skin: No rashes, No breakdown Musculoskeletal: No Tenderness to Palpation of Joints or Extremities Neurological: Cranial nerves II-XII grossly intact, Neuro grossly intact Psych/Mental Status: Normal Affect, Appropriate Laboratory Results 03/15/19 01:40: WBC 9.3, RBC 5.13, Hgb 15.0, Hct 44.6, MCV 86.9, MCH 29.2, MCHC 33.6, RDW Std Deviation 37.6, RDW Coeff of Johnnie 11.9, Plt Count 258, MPV 10.6, Immature Gran % (Auto) 0.400, Neut % (Auto) 62.7, Lymph % (Auto) 28.0, [place] % (Auto) 5.1, Eos % (Auto) 2.9, Baso % (Auto) 0.9, Absolute Neuts (auto) 5.9, Absolute Lymphs (auto) 2.61, Nucleated RBC % 0 03/15/19 01:40: Sodium 129 L, Potassium 4.0, Chloride 97 L, Carbon Dioxide 26.0, Anion Gap 6, BUN 14, Creatinine 0.93, Estim Creat Clear Calc 62.96, Est GFR (MDRD) Af Amer 86, Est GFR (MDRD) Non-Af 71, BUN/Creatinine Ratio 15.1, Glucose 428 H, Calcium 9.1, Troponin I < 0.015 03/15/19 04:14: Troponin I < 0.015 03/15/19 06:15: WBC 8.1, RBC 4.66, Hgb 13.6, Hct 40.7, MCV 87.3, MCH 29.2, MCHC 33.4, RDW Std Deviation 38.0, RDW Coeff of Johnnie 11.9, Plt Count 210, MPV 10.9, Immature Gran % (Auto) 0.600, Neut % (Auto) 60.7, Lymph % (Auto) 28.9, [place] % (Auto) 5.5, Eos % (Auto) 3.3, Baso % (Auto) 1.0, Absolute Neuts (auto) 4.9, Absolute Lymphs (auto) 2.33, Nucleated RBC % 0 03/15/19 06:15: Sodium 133 L, Potassium 4.0, Chloride 100, Carbon Dioxide 28.0, Anion Gap 5, BUN 13, Creatinine 0.76, Estim Creat Clear Calc 77.05, Est GFR (MDRD) Af Amer 107, Est GFR (MDRD) Non-Af 88, BUN/Creatinine Ratio 17.0, Glucose 358 H, Calcium 8.6, Total Bilirubin 0.30, AST 19, ALT 36, Alkaline Phosphatase 105, Total Protein 6.6, Albumin 3.0 L, Globulin 3.6, Albumin/Globulin Ratio 0.8 L 03/15/19 06:15: Troponin I < 0.015 03/15/19 06:39: POC Glucose 330 H 03/15/19 11:00: POC Glucose 424 H Current Medications Acetaminophen (Tylenol) 650 mg PO Q6H PRN PRN PRN Reason: Pain Score 1-10/Temp > 100.7 F Last Admin: 03/15/19 11:06 Dose: 650 mg Documented by: Doxycycline Monohydrate (Doxycycline) 100 mg PO BID [facility] Last Admin: 03/15/19 11:06 Dose: 100 mg Documented by: Glucagon () 1 mg IM .X1 PRN PRN Reason: Hypoglycemia Dextrose (Dextrose 10%-Water) 250 mls @ 999 mls/hr IV .Q16M PRN; Protocol PRN Reason: HYPOGLYCEMIA Insulin Glargine (Lantus (Bkc)) 30 units SC BID [facility] Last Admin: 03/15/19 11:06 Dose: 30 units Documented by: Insulin Human Lispro (Humalog Kwikpen (Bkc)) 30 unit SC 0800,1200,1700 [facility] Last Admin: 03/15/19 11:07 Dose: 30 units Documented by: Insulin Human Lispro (Humalog Kwikpen (Bkc)) 0 unit SC ACHS [facility]; Protocol Last Admin: 03/15/19 11:07 Dose: 4 units Documented by: Naproxen (Naprosyn) 500 mg PO BID PRN PRN Ondansetron HCl (Zofran) 4 mg IV Q8H PRN PRN PRN Reason: NAUSEA/VOMITING Sodium Chloride () 10 - 40 ml IV UD PRN PRN Reason: SALINE FLUSH Discharge Diet: Carb Control Diet Discharge Activity: Return to Normal Activity Call your doctor if you observe: Shortness of breath, Dizziness, Fainting spells, Chest pain Home Medications: Medications to take at Discharge Gabapentin 300 mg PO PRN PRN 03/29/18 Naproxen [Naprosyn] 500 mg PO BID PRN #20 tab 07/04/18 Doxycycline 100 mg PO BID #20 cap 03/12/19 Insulin Aspart [Novolog Flexpen] 30 units SQ TID 03/12/19 Insulin Glargine,Hum.rec.anlog [Basaglar Kwikpen U-100] 30 unit SQ BID 03/12/19 Primary Care Physician: Andrez Fischer MD [Primary Care Provider] - Please follow up with your Primary Care Physician in: 1 Week Disposition: Home Minutes spent on discharge:: 35 Patient Condition:: Stable Medical Necessity - Tobacco Use Smoking Status: Former smoker Tobacco Use: Non-smoker Meaningful Use Info Meaningful Use Diagnoses (Choose all that apply): None applicable <Yuki Blank - Last Filed: 03/15/19 16:33> Discharge Date and Diagnosis - Secondary Discharge Diagnosis Chronic Problems HTN (hypertension) (Chronic) Diabetes (Chronic) Headache (Chronic) Migraine (Chronic) GERD (gastroesophageal reflux disease) (Chronic) Migraine (Chronic) Hospital Course and Treatment Summary of Care Provided: Patient seen by Desirae YAÑEZ under my supervision The patient is a 43 year old F was admitted with a complaint of chest pain. Troponins x3 were negative and EKG showed no acute ST changes. She had never had a history of DVT and had no symptoms pointing towards DVT such as long distance travel, any swelling in her lower extremities, prolonged recumbency or any family history of DVT or PE. 2D echo done showed EF of 65% with normal left ventricular size and thickness and no wall motion abnormalities noted. She had a nuclear stress test which was negative for ischemia. Of note, on admission, patient said she also passed out. Chest pain had resolved by time she was admitted. Orthostatics were positive. She received a bolus of 500 cc of normal saline. Patient was stable afterwards. He was discharged home on 03/15/2019. She is to follow-up with her PCP within 1 week. Patient seen and examined prior to discharge. She had no complaints. Review of systems otherwise negative. Labs and vitals reviewed. Home medications reviewed and reconciled. o/e: Vital Signs Height 5 ft 2 in Weight: 231 lb 14.821 oz Weight in Pounds 231.9 lbs Pulse Ox 94 Temperature 97.7 F Pulse Rate [Standing] 114 Pulse Rate [Sitting] 89 Pulse Rate [Lying] 85 Pulse Rate 92 Respiratory Rate 18 Blood Pressure [Standing] 140/90 Blood Pressure [Sitting] 129/84 Blood Pressure [Lying] 128/77 Blood Pressure 132/77 Blood Pressure Position Semi-Fowlers [] General: Alert, Oriented x3, Cooperative, morbid obesity HEENT: Atraumatic, PERRLA, EOMI, Normocephalic Neck: Supple, No JVD, Negative Carotid Bruits Lungs: Clear to auscultation, Cardiovascular: Regular rate, Regular Rhythm, Normal S1, Normal S2, No murmurs Abdomen: Bowel Sounds Present, Soft, Non Tender, Non-Distended, Obese Extremities: No clubbing, No cyanosis, No edema, Capillary Refill Less than 3 Seconds Skin: No rashes, No breakdown Musculoskeletal: No Tenderness to Palpation of Joints or Extremities Neurological: Cranial nerves II-XII grossly intact, Neuro grossly intact Psych/Mental Status: Normal Affect, Appropriate Plan is for discharge home today. CTA of the chest was done and was negative for PE. Is likely pain is musculoskeletal in nature. Patient take Tylenol as needed for chest pain. As of management as per Desirae Mora NP-Adryan's note which I have reviewed and endorsed. - Physical Exam Vitals/I&O's: Vital Signs Temp Pulse Resp BP Pulse Ox 97.7 F L 85 18 128/77 H 94 03/15/19 10:00 03/15/19 14:26 03/15/19 10:00 03/15/19 14:26 03/15/19 10:00 Oxygen Delivery Method Room Air Weight: 231 lb 14.821 oz Body Mass Index (BMI) 42.4 Finger Stick Blood Glucose 305 Orthostatic Vital Signs Start: 03/15/19 14:15 Freq: q24h Status: Active Protocol: Activity Type Activity Date Activity User E-Sign Co-Sign Detail Recorded Client Recorded Date Recorded By Document 03/15/19 14:26 BS [id number] 03/15/19 14:32 BS 03/15/19 14:26 Orthostatic Vitals Standing -Blood Pressure (90/60-120/80) 140/90 H -Extremity Use Left Arm -Pulse Rate (60-100) 114 H Sitting -Blood Pressure (90/60-120/80) 129/84 H -Extremity Use Left Arm -Pulse Rate (60-100) 89 Lying -Blood Pressure (90/60-120/80) 128/77 H -Extremity Use Left Arm -Pulse Rate (60-100) 85 Intake and Output for Last 24 Hours 03/13/19 03/14/19 03/15/19 23:59 23:59 23:59 Intake Total 385 / 385 Balance 385 / 385 Laboratory Results 03/15/19 01:40: WBC 9.3, RBC 5.13, Hgb 15.0, Hct 44.6, MCV 86.9, MCH 29.2, MCHC 33.6, RDW Std Deviation 37.6, RDW Coeff of Johnnie 11.9, Plt Count 258, MPV 10.6, Immature Gran % (Auto) 0.400, Neut % (Auto) 62.7, Lymph % (Auto) 28.0, [place] % (Auto) 5.1, Eos % (Auto) 2.9, Baso % (Auto) 0.9, Absolute Neuts (auto) 5.9, Absolute Lymphs (auto) 2.61, Nucleated RBC % 0 03/15/19 01:40: Sodium 129 L, Potassium 4.0, Chloride 97 L, Carbon Dioxide 26.0, Anion Gap 6, BUN 14, Creatinine 0.93, Estim Creat Clear Calc 62.96, Est GFR (MDRD) Af Amer 86, Est GFR (MDRD) Non-Af 71, BUN/Creatinine Ratio 15.1, Glucose 428 H, Calcium 9.1, Troponin I < 0.015 03/15/19 04:14: Troponin I < 0.015 03/15/19 06:15: WBC 8.1, RBC 4.66, Hgb 13.6, Hct 40.7, MCV 87.3, MCH 29.2, MCHC 33.4, RDW Std Deviation 38.0, RDW Coeff of Johnnie 11.9, Plt Count 210, MPV 10.9, Immature Gran % (Auto) 0.600, Neut % (Auto) 60.7, Lymph % (Auto) 28.9, [place] % (Auto) 5.5, Eos % (Auto) 3.3, Baso % (Auto) 1.0, Absolute Neuts (auto) 4.9, Absolute Lymphs (auto) 2.33, Nucleated RBC % 0 03/15/19 06:15: Sodium 133 L, Potassium 4.0, Chloride 100, Carbon Dioxide 28.0, Anion Gap 5, BUN 13, Creatinine 0.76, Estim Creat Clear Calc 77.05, Est GFR (MDR D) Af Amer 107, Est GFR (MDRD) Non-Af 88, BUN/Creatinine Ratio 17.0, Glucose 358 H, Calcium 8.6, Total Bilirubin 0.30, AST 19, ALT 36, Alkaline Phosphatase 105, Total Protein 6.6, Albumin 3.0 L, Globulin 3.6, Albumin/Globulin Ratio 0.8 L 03/15/19 06:15: Troponin I < 0.015 03/15/19 06:39: POC Glucose 330 H 03/15/19 11:00: POC Glucose 424 H 03/15/19 14:34: POC Glucose 281 H Current Medications Acetaminophen (Tylenol) 650 mg PO Q6H PRN PRN PRN Reason: Pain Score 1-10/Temp > 100.7 F Last Admin: 03/15/19 11:06 Dose: 650 mg Documented by: Doxycycline Monohydrate (Doxycycline) 100 mg PO BID [facility] Last Admin: 03/15/19 11:06 Dose: 100 mg Documented by: Glucagon () 1 mg IM .X1 PRN PRN Reason: Hypoglycemia Dextrose (Dextrose 10%-Water) 250 mls @ 999 mls/hr IV .Q16M PRN; Protocol PRN Reason: HYPOGLYCEMIA Sodium Chloride () 500 mls @ 999 mls/hr IV .Q31M ONE Stop: 03/15/19 15:23 Insulin Glargine (Lantus (Bkc)) 30 units SC BID [facility] Last Admin: 03/15/19 11:06 Dose: 30 units Documented by: Insulin Human Lispro (Humalog Kwikpen (Bkc)) 30 unit SC 0800,1200,1700 [facility] Last Admin: 03/15/19 11:07 Dose: 30 units Documented by: Insulin Human Lispro (Humalog Kwikpen (Bkc)) 0 unit SC ACHS [facility]; Protocol Last Admin: 03/15/19 11:07 Dose: 4 units Documented by: Naproxen (Naprosyn) 500 mg PO BID PRN PRN Ondansetron HCl (Zofran) 4 mg IV Q8H PRN PRN PRN Reason: NAUSEA/VOMITING Sodium Chloride () 10 - 40 ml IV UD PRN PRN Reason: SALINE FLUSH Code Visit OBSV E&M: 88385 Observation care discharge
--- NOTE | 2019-03-15 14:16 | PHA.DC.MR ---
Pharmacy Service has performed discharge medication reconciliation for this patient. Home Medications Gabapentin 300 mg PO PRN PRN 03/29/18 Naproxen [Naprosyn] 500 mg PO BID PRN #20 tab 07/04/18 Doxycycline 100 mg PO BID #20 cap 03/12/19 Insulin Aspart [Novolog Flexpen] 30 units SQ TID 03/12/19 Insulin Glargine,Hum.rec.anlog [Basaglar Kwikpen U-100] 30 unit SQ BID 03/12/19 The patient's discharge medication list was reviewed for discrepancies and discrepancies were resolved.
[2019-03-15] MEDS: Insulin Lispro 100 UNIT/ML INSULN.PEN 12 UNIT SC (14:34)
[2019-03-15 14:40] LABS: Bedside Glucose 281 mg/dL (70-110)
[2019-03-15] MEDS: 0.9% Saline Lock 10 ML Syringe IV (15:34)
--- NOTE | 2019-03-15 15:35 | CT_ITS ---
STUDY: CTA CHEST REASON FOR EXAM: Female, 43 years old. CHEST PAIN, TACHYCARDIA. SYNCOPE RADIATION DOSAGE (If Supplied By Facility): CTDIvol = ( 12.66 ) mGy, DLP = ( 46.00 ) mGycm TECHNIQUE: The examination was performed with the intravenous administration of 100 ml isovue 370. Post-processing of the angiographic images was performed, with multiplanar reformation and 3D reconstruction. Individualized dose optimization techniques were used for this CT. COMPARISON: Chest radiograph March 15, 2019 FINDINGS: Normal enhancement of the main pulmonary artery and right and left pulmonary arteries. Normal enhancement of the bilateral peripheral pulmonary arteries. There is no demonstrated pulmonary embolism. Normal thoracic aorta and visualized great vessels. There is no demonstrated aortic dissection. Normal heart and pericardium. Normal mediastinum. Normal hilar regions. Normal visualized trachea and bronchi. Minimal dependent atelectatic changes. Negative for major consolidation, focal atelectasis or other acute pulmonary findings. Normal pleura. Normal pleura. 5 mm nodule of the right thyroid. Normal osseous structures. Normal visualized upper abdomen. CT/CTA Chest W/WO Contrast IMPRESSION: Negative for pulmonary embolus. Normal thoracic aorta. Normal cardiac size negative for coronary calcifications. Minimal posterior dependent atelectatic changes without other acute cardiopulmonary findings. Electronically Signed: Jazmín Sneed MD at 16:13 EST , Service support ,
--- NOTE | 2019-03-15 16:10 | EKG12_ITS ---
Test Reason : CP Blood Pressure : / mmHG Vent. Rate : 083 BPM Atrial Rate : 083 BPM P-R Int : 134 ms QRS Dur : 086 ms QT Int : 398 ms P-R-T Axes : 035 008 021 degrees QTc Int : 467 ms Normal sinus rhythm Normal ECG When compared with ECG of 15-MAR-2019 04:29, MANUAL COMPARISON REQUIRED, DATA IS UNCONFIRMED Confirmed by KIKI SANTIAGO, CONNIE ([id number]), editor dictionary LEATHA GUIDRY ([id number]) on 03/17/2019 1:27:27 PM Referred By: OSWALD Confirmed By:RAI SWANSON MD
== END 2019-03-15 12:44 | disposition home or self-care (01) ==
LOC: ED 02:51 → PCU 03:09
PROVIDERS: Admitting Provider Internal Medicine; Emergency Provider Emergency Medicine; Family Provider Family Medicine; PCP Family Medicine; Visit Provider Student in an Organized Health Care Education/Training Program
DX: R07.89 Other chest pain (principal); R55 Syncope and collapse; E78.5 Hyperlipidemia, unspecified; I10 Essential (primary) hypertension; E66.9 Obesity, unspecified; K21.9 Gastro-esophageal reflux disease without esophagitis; E11.65 Type 2 diabetes mellitus with hyperglycemia; G43.909 Migraine, unspecified, not intractable, without status migrainosus; R06.02 Shortness of breath; Z87.891 Personal history of nicotine dependence; Z68.41 Body mass index [BMI] 40.0-44.9, adult; Z82.49 Family history of ischemic heart disease and other diseases of the circulatory system; Z71.3 Dietary counseling and surveillance; Z79.899 Other long term (current) drug therapy; Z79.4 Long term (current) use of insulin
CPT/HCPCS: 36415; 71046; 71275; 78452; 80048; 80053; 82962; 84484; 85025; 93005; 93017; 93306; 99218; 99251; 99283; A9500; J7040; Q9957; Q9967; A4216; C8929; G0378; G0463; J2785

== ENCOUNTER 2019-05-11 16:54 | Emergency (ER) | payer MEDICAID, SELFPAY ==
[2019-03-15 03:29] VITALS: BMI 42.4
[2019-05-11 16:55] VITALS: BP 153/103; PULSE 100; RESP 17; TEMP 36.6; O2SAT 96; BMI 41.9
--- NOTE | 2019-05-11 17:22 | CT_ITS ---
STUDY: CT BRAIN WITHOUT CONTRAST REASON FOR EXAM: Female, 43 years old. Weakness in legs. Headache. History of hypertension and diabetes. RADIATION DOSAGE (If Supplied By Facility): CTDIvol = ( 44.99 ) mGy, DLP = ( 779.24 ) mGycm TECHNIQUE: Transaxial CT imaging of the brain was performed without administration of intravenous contrast material. Individualized dose optimization techniques were used for this CT. COMPARISON: No relevant priors. FINDINGS: Normal soft tissue structures. Normal calvarium. Normal size ventricles and extra-axial spaces for the patient''s age. Normal white matter tracts of the cerebral hemispheres. Normal basal ganglia and thalami. Normal brainstem. Normal cerebellum. There is no intracranial hemorrhage. There are no findings of an acute ischemic infarction. There is a mucous retention cyst versus polyp right maxillary sinus. CT/Brain/Head without Contrast IMPRESSION: 1. Normal unenhanced CT scan of the brain. If there is continued concern for acute stroke, MRI is recommended. 2. Right maxillary sinusitis. Electronically Signed: Cesar Smith DO at 18:02 EST Tel [phone], Service support ,
--- NOTE | 2019-05-11 17:40 | RAD_ITS ---
STUDY: X-RAY - LUMBAR SPINE REASON FOR EXAM: Female, 43 years old. Lower back pain. Weakness. TECHNIQUE: 3 view(s) of the lumbar spine were obtained. COMPARISON: None FINDINGS: Normal lumbar lordosis. There is no substantial scoliosis. There is a normal alignment of the vertebrae. Vertebral endplate spondylosis at L1-2. Normal disc space heights. [place] no spine fracture Cholecystectomy clips are seen in the right upper quadrant. There is evidence of tubal ligation. RAD/Lumbar Spine 2 or 3 Views IMPRESSION: Minimal degenerative changes of the lumbar spine. Electronically Signed: Cesar Smith DO at 18:24 EST Tel [phone], Service support ,
--- NOTE | 2019-05-11 17:52 | ED.VIS.GEN ---
History of Present Illness Chief Complaint: Back Informant: Patient Onset: Weeks - 4 Context: Gradual Onset Timing: Intermittent Quality: ache Location: low back, radiating all the way up back to head w/ [place]; nonlateralizing Current Severity: Mild Maximum Severity: Severe Worsened by: sitting Relieved by: changing position Associated Symptoms: intermittent weakness in legs w/ occasionally giving out when walking Narrative: Patient has history of diabetes and peripheral neuropathic pain in her feet, worse on the left, she feels like she has been having worsening of that pain despite her blood sugar being okay, as well as weakness in her legs that seems intermittent. At times she feels like her legs buckle and give out when she is walking. She has had no numbness or weakness symptoms in her upper extremities. She has had pain in her back shooting up to her head and getting headaches with this and a funny feeling in her head, like things are foggy but no vertigo or off-balance feelings. No loss of consciousness. She has been having blurry vision with her diabetes for a long while but no changes recently or diplopia. She called her PCPs office and the nurse directed her to the emergency department for this. She denies any bowel or bladder dysfunction at all or groin anesthesias/paresthesias. - Past Medical History (1) Diabetes Status: Chronic (2) GERD (gastroesophageal reflux disease) Status: Chronic (3) HTN (hypertension) Status: Chronic (4) Migraine Status: Chronic Past Medical History - Allergies and Home Meds Allergies/Adverse Reactions: Allergies Penicillins Allergy (Verified 05/11/19 17:00) Hives venom-honey bee [bee venom (honey bee)] Allergy (Verified 05/11/19 17:00) Anaphylaxis Primary Care Physician: Andrez Fischer MD [Primary Care Provider] - As soon as possible Surgical History: - - Cholecystectomy, ectopic ; tubal ligation. Lives: With Family Smoking Status: Former smoker - Family History Paternal Family History: Reports: No pertinent history Sibling Family History: Reports: No pertinent history Maternal Family History: Reports: Diabetes, Hypertension Review of Systems General: Denies: Chills, Fever, Sweats Eyes: Denies: Visual changes - bilaterally, Diplopia ENT: Denies: Rhinorrhea, Sore throat Cardiovascular: Denies: Chest pain, Palpitations Respiratory: Denies: Dyspnea, Cough, Dyspnea on exertion Gastrointestinal: Denies: Abdominal pain, Nausea, Vomiting, Diarrhea, Melena, Hematochezia Genitourinary: Denies: Dysuria, Hematuria, Frequency Musculoskeletal: Reports: Neck pain, Back pain, Extremity Pain - feet Skin: Denies: Rash, Wounds Neurological: Reports: Headache, Weakness, Numbness - only distal half of feet, worse on the left, chronic and unchanged. Denies: Parasthesia Physical Exam Vital Signs/Narrative: Vital Signs Temp Pulse Resp BP Pulse Ox 05/11/19 16:55 97.9 F 100 17 153/103 H 96 Inital Vital Signs reviewed: Yes General: Well nourished, Well developed, Obese, No Acute Distress Head: Normocephalic, Atraumatic Eyes: Perrl, EOMI ENT: Moist mucous membranes, No rhinorrhea Neck: Supple, Nontender, No lymphadenopathy Extremities: No edema, Tenderness - distal feet bilat. brisk CR. Skin: Normal color, No rash, No Trauma Neurological: Alert, Oriented x3, Cranial nerves II-XII grossly intact, Normal Strength, Normal Sensation, Normal DTR - diminished throughout all 4 exts, symmetric; no clonus. toes downgoing bilat., Normal Gait, - - neg [place]. nml cerebellar bilat Psychological: Normal affect, Normal Mood Diagnostic/Tx/Re-eval Clinical Impression(s) from Imaging Studies Brain CT 05/11/19 17:22 IMPRESSION: 1. Normal unenhanced CT scan of the brain. If there is continued concern for acute stroke, MRI is recommended. 2. Right maxillary sinusitis. Electronically Signed: Cesar Smith DO at 18:02 EST Tel [phone], Service support , Lumbar Spine X-Ray 05/11/19 17:40 IMPRESSION: Minimal degenerative changes of the lumbar spine. Electronically Signed: Cesar Smith DO at 18:24 EST Tel [phone], Service support , - Medical Decision Making X-rays of the LS spine are obtained and show chronic abnormalities but no acute abnormalities, CT of the head is unremarkable except for incidental right maxillary sinus disease. She does not have symptoms of sinusitis, nor do I think this is causing her symptoms and no antibiotics are indicated emergently at this time. Patient has no acute neurologic deficits and does not need an emergent MRI, however I suspect an MRI of the lumbosacral spine may tell the patient why she is having the symptoms. I think she is stable to have this test as an outpatient and advised to follow-up with her doctor. She is comfortable with that plan and is in no severe pain at this time. ED Disposition - Plan for ED Patient: Disposition: Home or Assisted Living Diagnosis: Weakness of both lower extremities, Diabetic neuropathy associated with type 2 diabetes mellitus, Low back pain Instructions: BACK PAIN (Acute or Chronic), WEAKNESS, Unk Cause Referrals: Andrez Fischer MD [Primary Care Provider] - As soon as possible
[2019-05-11 18:05] VITALS: BP 145/100; PULSE 91; RESP 20; O2SAT 96
[2019-05-11 19:18] VITALS: BP 129/87; PULSE 91; RESP 18; O2SAT 97
== END 2019-05-11 19:20 | disposition home or self-care (01) ==
PROVIDERS: Emergency Provider Emergency Medicine; PCP Family Medicine
DX: R53.1 Weakness (principal); M54.5 Low back pain; E11.40 Type 2 diabetes mellitus with diabetic neuropathy, unspecified; I10 Essential (primary) hypertension; J32.0 Chronic maxillary sinusitis; K21.9 Gastro-esophageal reflux disease without esophagitis; Z82.49 Family history of ischemic heart disease and other diseases of the circulatory system; Z87.891 Personal history of nicotine dependence; Z88.0 Allergy status to penicillin
CPT/HCPCS: 70450; 72100; 99282

== ENCOUNTER 2019-07-17 12:32 | Emergency (ER) | payer MEDICAID, SELFPAY ==
[2019-07-17 12:33] VITALS: BP 156/91; PULSE 80; RESP 18; TEMP 36.4; O2SAT 98; BMI 43.5
--- NOTE | 2019-07-17 13:15 | ED.DCSUM_ITS ---
- ER Visit Summary Date of Service: 07/17/19 Chief Complaint: Left leg redness and pain History of Present Illness: The patient is a 43 F who presents with redness and pain to the medial aspect of her proximal left lower leg that is been getting worse over the past 2 days. Patient describes her pain as burning. Patient states it is worse with palpation. Patient denies any trauma or injury. Patient states she has had prior staph infections and was told that she will continue to get staph infections from time to time. Patient denies any fevers or chills. Patient denies any abscess. Patient denies any nausea or vomiting. Physical Examination: Vital signs are stable. Patient is afebrile. Patient is in no acute distress. Oral mucosa is pink and moist. Neck is supple. Trachea is midline. There is no JVD. Heart was regular rate and rhythm. Lungs are clear and equal bilaterally. Abdomen is soft and nontender. Skin is warm and dry. There is a tender erythematous warm area over the medial aspect of the left proximal lower leg. There is no abscess formation. There is no fluctuance. There is no discharge or drainage. There is full range of motion of the left knee and left ankle. There is no calf tenderness. Pedal pulses are equal bilaterally. Emergency Department Course and Treatment: Patient was given a dose of doxycycline here. Patient was given a prescription for doxycycline. Patient was instructed to follow-up with her primary care physician in 5 to 7 days. Patient instructed take Tylenol or ibuprofen as needed for any fevers. Patient understood and was agreeable with the plan. All questions were answered. Disposition: Discharge home Impression: Cellulitis left leg This note was generated with [employer] dictation software. It may contain incorrect words, spelling, and punctuation that were not noted in review of the chart prior to signing ED Disposition - Plan for ED Patient: Disposition: Home or Assisted Living Diagnosis: Cellulitis of left lower leg Instructions: ED Cellulitis Prescriptions: Doxycycline 100 mg PO BID #20 cap Prescription Printed Referrals: Andrez Fischer MD [Primary Care Provider] - 3-5 Days
[2019-07-17 13:19] VITALS: BP 156/91; PULSE 80; RESP 18; TEMP 36.4; O2SAT 98
[2019-07-17] MEDS: Doxycycline 100 MG CAPSULE PO (13:52)
[2019-07-17 13:58] VITALS: PULSE 84; RESP 17; O2SAT 97
== END 2019-07-17 13:59 | disposition home or self-care (01) ==
LOC: ED 13:27
PROVIDERS: Emergency Provider Emergency Medicine; PCP Family Medicine
DX: L03.116 Cellulitis of left lower limb (principal); E66.9 Obesity, unspecified; E11.9 Type 2 diabetes mellitus without complications; I10 Essential (primary) hypertension; Z79.4 Long term (current) use of insulin
CPT/HCPCS: 99283

== ENCOUNTER 2019-07-20 19:01 | Emergency (ER) | payer MEDICAID, SELFPAY ==
[2019-07-20 19:01] VITALS: BP 162/117; PULSE 90; RESP 18; TEMP 36.2; O2SAT 98; BMI 44.4
[2019-07-20 19:52] LABS: Absolute Lymphocyte Count 1.98 X10^3/uL (0.83-4.51); Absolute Neutrophil Count 3.8 X10^3/uL (2.0-7.7); Basophil# 0.06 X10^3/uL; Basophil% 0.9 % (0-1); Eosinophil# 0.27 X10^3/uL; Eosinophils% 4.1 % (0-5); Hematocrit 42.8 % (37-47); Hemoglobin 14.3 g/dL (12.0-15.0); Lymphocyte # 1.98 X10^3/ul (4.0); Lymphocyte % 30.3 % (19-41); Mean Corp Hgb Conc 33.4 g/dL (32-36); Mean Corpuscular Hgb 29.4 pg (27.0-32.0); Mean Corpuscular Volume 88.1 fL (81-99); Mean Platelet Vol. 10.9 fl (6.2-12.0); Monocyte# 0.37 X10^3/uL; Monocyte% 5.7 % (0-10); NRBC Flagged by Analyzer 0 % (0-5); Neutrophil # 3.82 X10^3/uL (2.7-7.7); Neutrophil % 58.5 % (47-70); Platelet Count 191 K/mm3 (150-450); RBC Distribution Width CV 12.2 % (11.6-14.6); RBC Distribution Width SD 38.5 fl (35.1-43.9); Red Blood Count 4.86 M/mm3 (4.2-5.4); White Blood Count 6.5 K/mm3 (4.4-11.0)
--- NOTE | 2019-07-20 20:08 | ED.DCSUM_ITS ---
- ER Visit Summary Date of Service: 07/20/19 Chief Complaint: Left leg cellulitis History of Present Illness: The patient is a 43 F who presents with cellulitis of her left lower leg that is been getting worse over the past 4 days. Patient was seen here 3 days ago and was started on doxycycline. Patient states the swelling is going into her foot. Patient states the redness has not improved. Patient denies any fevers or chills. Patient denies any discharge or drainage. Patient states her pain is throbbing and worse with standing and walking. Patient does admit to some tingling in her legs when she elevates her leg. Physical Examination: Vital signs are stable. Patient is afebrile. Patient is in no acute distress. Oral mucosa is pink and moist. Neck is supple. Trachea is midline. There is no JVD. Heart was regular rate and rhythm. Lungs are clear and equal bilateral. Abdomen is soft and nontender. Cranial nerves II through XII are intact. There are no focal motor or sensory deficits. Extremities are intact. There is some mild erythema and warmth over the medial aspect of the left lower leg. There are no vesicles or pustules. There is no abscess formation. There is some edema of the ankle and foot. There is no erythema or warmth of the ankle or foot. There is some mild calf tenderness. Sensation was intact to light touch in all digits. Capillary refill was less than 2 seconds in all digits. Pedal pulses are equal bilaterally. Test Results: CBC was within normal limits. Comprehensive metabolic profile showed an elevated glucose of 527 and a mild hyponatremia of 132. Anion gap was normal. CO2 was normal. Venous duplex of the left lower extremity was obtained. There is no evidence of DVT. Emergency Department Course and Treatment: Patient was given a dose of IV cl indamycin here. Patient was given a dose of Humalog here. Patient is feeling better. Patient wants to go home. Patient does not want to wait for repeat BGT. Patient states she will take her normal insulin when she gets home. Patient states she normally takes her insulin after she eats. Patient states she will be fine if she goes home now. Patient was given a prescription for clindamycin and was instructed to stop taking the doxycycline. Patient was instructed to follow-up with her primary care physician in 3 to 5 days. Patient understood and was agreeable with the plan. All questions were answered. Disposition: Discharge home Impression: 1. Left leg pain 2. Hyperglycemia This note was generated with [employer] dictation software. It may contain incorrect words, spelling, and punctuation that were not noted in review of the chart prior to signing ED Disposition - Plan for ED Patient: Disposition: Home or Assisted Living Diagnosis: Cellulitis Instructions: ED Cellulitis Prescriptions: Clindamycin [Cleocin] 300 mg PO 4X/DAY #40 cap Prescription Printed Referrals: Andrez Fischer MD [Primary Care Provider] - 3-5 Days
--- NOTE | 2019-07-20 20:11 | US_ITS ---
STUDY: VENOUS DOPPLER ULTRASOUND - LEFT LOWER EXTREMITY REASON FOR EXAM: Female, 43 years old. LT LEG SWELLING/ FOOT TECHNIQUE: Ultrasound evaluation of the deep vein system to include back-scale imaging and compression was performed. Back-scale imaging and Doppler sonographic evaluation, including duplex spectral analysis and qualitative color flow sonography, was performed. COMPARISON: None. FINDINGS: No deep venous thrombosis is identified. All visualized veins demonstrate normal compressibility, augmentation and/or color flow. US/Venous Duplex Imag/Limited/Uni IMPRESSION: No DVT is identified. Electronically Signed: Evan Mendez MD at 20:53 EDT Tel , Service support ,
[2019-07-20 20:16] LABS: ALB/GLOB Ratio 0.8 RATIO (0.9-2.4); AST(SGOT) 21 U/L (15-37); Alanine Aminotransfer ALT/SGPT 36 U/L (13-56); Alkaline Phosphatase 109 U/L (45-117); Anion Gap 10 (5-15); BUN 13 mg/dL (7-18); BUN/Creat Ratio 13.6 RATIO (10-20); Calcium,Total 8.3 mg/dL (8.5-10.1); Chloride 95 mmol/L (98-107); Creatinine, Serum 0.96 mg/dL (0.55-1.02); EST Glomerular Filtration Rate 68 mL/min (>60); Est Glom Filt Rate - Afr Amer 82 mL/min (>60); Estimated Creatinine Clearance 60.99 ml/min; Glucose 527 mg/dL (74-106); Potassium 3.9 mmol/L (3.5-5.1); Sodium Level 132 mmol/L (136-145)
[2019-07-20] MEDS: Insulin Lispro 100 UNIT/ML INSULN.PEN 15 UNIT SC (20:55)
[2019-07-20 20:58] VITALS: BP 160/104; PULSE 84; RESP 16; TEMP 36.5; O2SAT 98
== END 2019-07-20 21:02 | disposition home or self-care (01) ==
PROVIDERS: Emergency Provider Emergency Medicine; PCP Family Medicine
DX: M79.605 Pain in left leg (principal); R73.9 Hyperglycemia, unspecified; E87.1 Hypo-osmolality and hyponatremia; R20.2 Paresthesia of skin; M79.89 Other specified soft tissue disorders
CPT/HCPCS: 80053; 85025; 93971; 99283; J7050; A4216

== ENCOUNTER 2020-10-08 01:56 | Emergency (ER) | payer MEDICAID, SELFPAY ==
[2019-11-17 08:10] VITALS: BMI 44.4
[2020-10-08 01:57] VITALS: BP 170/97; PULSE 78; RESP 16; TEMP 35.9; O2SAT 96; BMI 46.3
[2020-10-08 02:00] VITALS: BP 170/97; PULSE 78; RESP 16; TEMP 35.9; O2SAT 96
--- NOTE | 2020-10-08 02:07 | RAD_ITS ---
STUDY: X-RAY - LEFT KNEE REASON FOR EXAM: Female, 44 years old. Medial knee pain, unknown if trauma TECHNIQUE: 3 view(s) of the knee. COMPARISON: None. FINDINGS: Normal visualized distal femur. Normal visualized proximal tibia and fibula. Normal proximal tibiofibular articulation. Normal medial femorotibial compartment. Normal lateral femorotibial compartment. Normal patellofemoral articulation. The soft tissue structures are unremarkable. RAD/Knee 3 Views IMPRESSION: Normal x-ray examination of the knee. Electronically Signed: Jose Luis Aviles DO at 3:14 EDT Tel , Service support ,
[2020-10-08] MEDS: Ketorolac 30 MG/ML Syringe IM (02:16)
--- NOTE | 2020-10-08 02:41 | EX.ED.DYSGE1 ---
HPI History of Present Illness Chief Complaint: Lower Extremity Injury Informant: patient Narrative Narrative: Patient is a 44-year-old female who presents to the emergency department for left knee pain. She states that this started 2 days ago. She was drinking the night before but does not remember falling or injuring it. She has had issues with this knee before in the past. She believes that there is a bone spur. She is never had a surgery on the knee before in the past. She denies any significant swelling. She has been icing the knee. She been taking ibuprofen and Tylenol which has not been giving her significant relief. She states that she has a very hard time ambulating on the leg due to pain. The pain does go down her leg to the foot sometimes. She denies any hip pain. She does have chronic back pain is no worse than normal. No urinary symptoms. No fevers or chills. [facility] Medical History (Updated 10/08/20 @ 04:[address] Rajendra Plata DO) Ectopic Gallbladder calculus with acute cholecystitis Hypertension PTSD (post-traumatic stress disorder) Home Medications insulin aspart U-100 30 units SQ TID 03/12/19 [History Last Taken 03/14/19] insulin glargine 30 unit SQ BID 03/12/19 [History Last Taken Unknown] aspirin 81 mg PO DAILY 05/11/19 [History Last Taken Unknown] doxycycline monohydrate 100 mg PO BID #20 cap 07/17/19 [Rx Last Taken Unknown] acetaminophen 650 mg PO Q6H PRN 07/20/19 [History Last Taken Unknown] clindamycin HCl 300 mg PO 4X/DAY #40 cap 07/20/19 [Rx Last Taken Unknown] Allergy/AdvReac Type Severity Reaction Status Date / Time Penicillins Allergy Hives Verified 07/20/19 19:04 venom-honey bee Allergy Anaphylaxis Verified 07/20/19 19:04 [bee venom (honey bee)] Social History Smoking Status: Former smoker ROS ROS ED Constitutional Constitutional ED: Denies chills or fever(s) Eyes Eyes: Denies change in vision ENT ENT ED: Denies epistaxis or rhinorrhea Cardiovascular Cardiovascular: Denies chest pain Respiratory/Chest Respiratory/Chest: Denies cough or dyspnea Gastrointestinal Gastrointestinal: Denies abdominal pain, nausea or vomiting Genitourinary Genitourinary ED: Denies dysuria, hematuria or urinary frequency Musculoskeletal Musculoskeletal: Reports arthralgias and back pain; Denies neck pain Integumentary Denies rash Neurologic Neurologic: Denies dizziness, headache(s) or weakness EXAM Physical Exam Const Vital Signs: 10/08/20 01:57 10/08/20 02:00 10/08/20 04:25 Temperature 96.7 F L 96.7 F L Temperature Source Temporal Temporal Pulse Rate 78 78 76 Respiratory Rate 16 16 16 Blood Pressure 170/97 H 170/97 H Blood Pressure Mean 121 121 Pulse Ox 96 96 98 Oxygen Delivery Method Room Air Room Air Positive well nourished and well developed General Appearance ED: well developed and NAD HEENT Reports normocephalic, head/scalp atraumatic and moist mucous membranes Eyes PERRL and EOMs intact bilaterally Neck supple Chest Wall inspection of chest normal Resp normal respiratory effort and clear to auscultation bilaterally Auscultation: Negative for rales, rhonchi or wheezes Cardio regular rate, regular rhythm and no murmurs GI normal to inspection, nondistended, normoactive bowel sounds and non-tender Palpation: soft; Negative for guarding or rebound tenderness present Extremity normal to inspection Extremity Narrative: No significant tenderness with palpation of the knee. She does have good range of passive motion without significant pain. 2+ DP pulse. Sensation intact distal. General Extremety ED: Negative for edema or tenderness General Extremity: Negative for edema Neuro no sensory deficits noted Sensorium / Orientation: alert Motor Exam: strength 5/5 throughout Psych mental status grossly normal Skin no rashes or lesions noted MDM MDM MDM Narrative Medical decision making narrative: Patient presents the ED for nontraumatic left knee pain. Upon arrival to the ED she is hypertensive otherwise normal vital signs. Her knee exam is benign. Will check an x-ray. She is given a dose of Toradol for symptomatic treatment. On reexamination patient resting comfortably. Her x-ray did not reveal any evidence of acute traumatic findings. No large effusion. This time I have low concern for septic arthritis. Will discharge home in stable condition. She is able to ambulate on it at this time. She is given referral for orthopedic surgery. Return precautions are reviewed with her. Recommend symptomatic treatment in the meantime. Radiography Diagnostic Testing: Radiology Impression Knee X-Ray 10/08/20 02:07 IMPRESSION: Normal x-ray examination of the knee. Electronically Signed: Jose Luis Aviles DO at 3:14 EDT Tel , Service support , Discharge Plan Triage Chief Complaint: Lower Extremity Injury ED Provider: Rajendra Plata Dx/Rx/DC Orders Clinical Impression: Acute knee pain Instructions: ED Knee Pain of Uncertain Cause Prescriptions: No Action insulin aspart U-100 100 UNITS/ML insulin pen 30 units SQ TID RF: 0 insulin glargine 100 UNIT/ML insulin pen 30 unit SQ BID RF: 0 aspirin 81 MG tablet,delayed release (DR/EC) 81 mg PO DAILY RF: 0 doxycycline monohydrate 100 MG capsule 100 mg PO BID Qty: 20 RF: 0 acetaminophen 325 MG tablet 650 mg PO Q6H PRN (Reason: Pain Or Fever) RF: 0 clindamycin HCl 150 MG capsule 300 mg PO 4X/DAY Qty: 40 RF: 0 Primary Care Provider: Andrez Fischer Referrals: Andrez Fischer MD [Primary Care Provider] - Jarod Napier MD [STAFF PHYSICIAN] - 3-5 Days if not improving Disposition Disposition: Home, Self Care Discharge Date/Time: 10/08/20 04:26
[2020-10-08 04:25] VITALS: PULSE 76; RESP 16; O2SAT 98
== END 2020-10-08 04:26 | disposition home or self-care (01) ==
PROVIDERS: Emergency Provider Emergency Medicine; PCP Family Medicine
DX: M25.562 Pain in left knee (principal); I10 Essential (primary) hypertension; M54.9 Dorsalgia, unspecified; G89.29 Other chronic pain; F43.10 Post-traumatic stress disorder, unspecified; Z79.82 Long term (current) use of aspirin; Z87.891 Personal history of nicotine dependence
CPT/HCPCS: 73562; 96372; 99282

== ENCOUNTER 2020-10-24 16:42 | Emergency (ER) | payer MEDICAID, SELFPAY ==
[2020-10-24 16:44] VITALS: BP 187/118; PULSE 118; RESP 18; TEMP 35.7; O2SAT 97; BMI 45.4
--- NOTE | 2020-10-24 17:42 | EX.ED.UPPERE ---
HPI History of Present Illness Chief Complaint: Upper Extremity Injury Informant: patient Onset/Context/Timing Onset: Weeks (1) Context: Gradual Onset Timing: Continuous Quality of Pain: Stabbing and Throbbing Location: Left thumb and wrist Worsened by: Movement Relieved by: Nothing Associated Symptoms Associated Symptoms: Negative for Parasthesia and Weakness Narrative Narrative: Patient presents with left thumb pain that has been getting worse over the past week. Patient states it is gradually getting worse. Patient denies any trauma or injury. Patient states she is dropping things due to the pain. Patient states her pain is worse with certain movements. Patient denies any paresthesias. Patient denies any fevers or chills. [facility] Medical History (Updated 10/24/20 @ 20:[address] Chandana London DO) Ectopic Gallbladder calculus with acute cholecystitis Hypertension PTSD (post-traumatic stress disorder) Home Medications insulin aspart U-100 30 units SQ TID 03/12/19 [History Last Taken 03/14/19] insulin glargine 30 unit SQ BID 03/12/19 [History Last Taken Unknown] aspirin 81 mg PO DAILY 05/11/19 [History Last Taken Unknown] acetaminophen 650 mg PO Q6H PRN 07/20/19 [History Last Taken Unknown] atorvastatin 40 mg PO QHS 10/24/20 [History Last Taken Unknown] glimepiride 8 mg PO DAILY 10/24/20 [History Last Taken Unknown] hydrochlorothiazide 25 mg PO DAILY 10/24/20 [History Last Taken Unknown] metformin 1,000 mg PO DAILY 10/24/20 [History Last Taken Unknown] naproxen 500 mg PO BID PRN #20 tab 10/24/20 [Rx Last Taken Unknown] propranolol 20 mg PO BID 10/24/20 [History Last Taken Unknown] Allergy/AdvReac Type Severity Reaction Status Date / Time Penicillins Allergy Hives Verified 10/24/20 16:44 venom-honey bee Allergy Anaphylaxis Verified 10/24/20 16:44 [bee venom (honey bee)] Surgical History Hx of cholecystectomy Social History Smoking Status: Former smoker ROS ROS ED Constitutional Constitutional ED: Denies chills or fever(s) Eyes Eyes: Denies blurry vision or change in vision ENT ENT ED: Reports rhinorrhea; Denies sore throat Cardiovascular Cardiovascular: Denies chest pain or palpitations Respiratory/Chest Respiratory/Chest: Denies cough or dyspnea Gastrointestinal Gastrointestinal: Denies nausea or vomiting Genitourinary Genitourinary ED: Denies dysuria or hematuria Musculoskeletal Musculoskeletal: Denies back pain or neck pain Integumentary Reports rash; Denies abscess Neurologic Neurologic: Denies headache(s) or weakness Allergic/Immunologic Allergic/Immunologic ED: Denies mouth swelling or urticaria EXAM Physical Exam Const Vital Signs: 10/24/20 16:44 Temperature 96.2 F L Temperature Source Temporal Pulse Rate 118 H Respiratory Rate 18 Blood Pressure 187/118 H Blood Pressure Mean 141 Pulse Ox 97 Oxygen Delivery Method Room Air Positive well nourished, well developed and obese General Appearance ED: well developed Nutritional Appearance: obese HEENT Reports moist mucous membranes Neck full ROM Extremity Extremity Narrative: There is tenderness over the first metacarpal area of the left thumb. There is no deformity. There is no edema or ecchymosis. Range of motion was limited in all motions of the left thumb secondary to pain. Sensation was intact to light touch in all digits. Capillary refill was less than 2 seconds in all digits. There is a positive Jareth's test. Neuro oriented x3, CN's II-XII intact bilaterally, moves all extremities, no focal motor deficits and no sensory deficits noted Sensorium / Orientation: alert Psych mental status grossly normal MDM MDM MDM Narrative Medical decision making narrative: X-rays of the left hand were obtained. There are 3 views. On my interpretation, there is no acute fracture or dislocation. There is no soft tissue swelling. Radiologist also interpreted the x-ray and agrees. Patient was placed in a prefabricated thumb spica splint. Patient was given a prescription for Naprosyn. Patient was instructed use ice to the area. Patient was instructed to follow-up with her primary care physician in 5 to 7 days. Patient understood and was agreeable with the plan. All questions were answered. Discharge Plan Triage Chief Complaint: Upper Extremity Injury ED Provider: Chandana London Dx/Rx/DC Orders Clinical Impression: De Quervain's tenosynovitis, left Instructions: De Quervain Tenosynovitis Prescriptions: New naproxen 500 MG tablet 500 mg PO BID PRN Qty: 20 RF: 0 No Action insulin aspart U-100 100 UNITS/ML insulin pen 30 units SQ TID RF: 0 insulin glargine 100 UNIT/ML insulin pen 30 unit SQ BID RF: 0 aspirin 81 MG tablet,delayed release (DR/EC) 81 mg PO DAILY RF: 0 acetaminophen 325 MG tablet 650 mg PO Q6H PRN (Reason: Pain Or Fever) RF: 0 atorvastatin 40 mg tablet 40 mg PO QHS RF: 0 metformin 1,000 mg tablet 1,000 mg PO DAILY RF: 0 glimepiride 4 mg tablet 8 mg PO DAILY RF: 0 hydrochlorothiazide 25 mg tablet 25 mg PO DAILY RF: 0 propranolol 20 mg tablet 20 mg PO BID RF: 0 Primary Care Provider: Andrez Fischer Referrals: Andrez Fischer MD [Primary Care Provider] - 5-7 Days Disposition Disposition: Home, Self Care Discharge Date/Time: 10/24/20 20:25
--- NOTE | 2020-10-24 18:18 | RAD_ITS ---
STUDY: X-RAY - LEFT HAND REASON FOR EXAM: Female, 45 years old. lt thumb pain, unknown cause. TECHNIQUE: 3 view(s) of the hand. COMPARISON: None. FINDINGS: Normal radiocarpal articulation. Normal distal radioulnar joint. Normal visualized carpal bones. Normal carpal articulations Normal carpometacarpal articulation of the thumb. Normal second through fifth carpometacarpal joints. Normal metacarpi. No visualized fracture or displaced bony fragment. Normal metacarpophalangeal joint of the thumb. Normal interphalangeal joint of the thumb. Normal proximal and distal phalanges of the thumb. Normal metacarpophalangeal joints of the second through fifth fingers. Normal proximal and distal interphalangeal joints of the second through fifth fingers. Normal phalanges of the second through fifth fingers. The soft tissue structures are unremarkable. RAD/Hand Min 3 Views IMPRESSION: Normal x-ray examination of the hand. Electronically Signed: Earle Roy MD at 18:55 EDT , Service support ,
== END 2020-10-24 20:25 | disposition home or self-care (01) ==
PROVIDERS: Emergency Provider Emergency Medicine; PCP Family Medicine
DX: M65.4 Radial styloid tenosynovitis [de Quervain] (principal); E66.9 Obesity, unspecified; F43.10 Post-traumatic stress disorder, unspecified; I10 Essential (primary) hypertension; Z79.82 Long term (current) use of aspirin; Z79.899 Other long term (current) drug therapy; Z87.891 Personal history of nicotine dependence
CPT/HCPCS: 73130; 99283

== ENCOUNTER 2021-04-12 18:52 | Emergency (ER) | payer MEDICAID, SELFPAY ==
[2021-04-12 18:53] VITALS: BP 125/92; PULSE 107; RESP 18; TEMP 36.1; O2SAT 97; BMI 37.5
[2021-04-12] MEDS: Lidocaine 5% Patch 1 PATCH TOPICAL (19:38)
[2021-04-12] MEDS: Ketorolac 15 MG/ML Vial IM (19:38)
--- NOTE | 2021-04-12 19:47 | RAD_ITS ---
EXAM: XR RIGHT RIBS AND AP CHEST, 3 OR MORE VIEWS CLINICAL INDICATION: RIGHT ANTERIOR RIB PAIN S/P INJURY WHILE WRESTLING TECHNIQUE: Frontal and oblique views of the right ribs and frontal view of the chest. This report was created using [employer] report generation technology. COMPARISON: None. FINDINGS: LUNGS AND PLEURAL SPACES: Unremarkable. No consolidation or edema. No pneumothorax. No effusion. HEART: Unremarkable. Cardiac silhouette not enlarged. MEDIASTINUM: Central airways and mediastinal contour are unremarkable. BONES/JOINTS: Unremarkable. No evidence of displaced rib fractures. RAD/Ribs Uni Min 3V w/PA Chest IMPRESSION: Negative chest and right ribs series. Electronically Signed: Sam Mcclure MD ([place]) at 20:25 EST Reading Location ID and State: [facility] / [place] , Service support ,
--- NOTE | 2021-04-12 19:54 | EDS_ITS ---
HPI History of Present Illness Chief Complaint: Chest Other Narrative Narrative: 45-year-old female presenting with right upper chest wall pain which radiates around to the right axilla. She states this started after she was run pain with her son who is 250 pounds. He fell over on her after she pulled him on top. She states she heard a crack. She denies shortness of breath but does state that she has pain when she twists or moves. Prior to this she was feeling well. She took nothing for pain prior to arrival. PFSH PFSH Medical History Diabetes Ectopic Gallbladder calculus with acute cholecystitis Hypertension PTSD (post-traumatic stress disorder) Smoker Home Medications lidocaine 1 patch TOPICAL DAILY PRN #1 ea 04/12/21 [Rx Last Taken Unknown] Allergy/AdvReac Type Severity Reaction Status Date / Time Penicillins Allergy Hives Verified 04/12/21 18:56 venom-honey bee Allergy Anaphylaxis Verified 04/12/21 18:56 [bee venom (honey bee)] Surgical History History of tubal ligation Hx of cholecystectomy Social History Smoking Status: Former smoker ROS ROS ED Constitutional Constitutional ED: Denies chills or fever(s) Eyes Eyes: Denies blurry vision or change in vision ENT ENT ED: Denies rhinorrhea or sore throat Cardiovascular Cardiovascular: Reports as per HPI Respiratory/Chest Respiratory/Chest: Denies cough or dyspnea Gastrointestinal Gastrointestinal: Denies abdominal pain, nausea or vomiting Genitourinary Genitourinary ED: Denies dysuria or hematuria Musculoskeletal Musculoskeletal: Denies arthralgias, back pain, myalgias or neck pain Integumentary Denies rash Neurologic Neurologic: Denies headache(s), paresthesias or weakness EXAM Physical Exam Const Vital Signs: 04/12/21 18:53 04/12/21 18:58 Temperature 97.0 F L Temperature Source Temporal Pulse Rate 107 H Respiratory Rate 18 Respiratory Effort Normal Blood Pressure 125/92 H Blood Pressure Mean 103 Pulse Ox 97 Oxygen Delivery Method Room Air Positive obese General Appearance ED: NAD Nutritional Appearance: obese HEENT Reports moist mucous membranes normocephalic and atraumatic Eyes PERRL and EOMs intact bilaterally Chest Wall Chest Narrative: Tenderness palpation right upper chest wall anteriorly and into the right axilla. Right posterior ribs are nontender. Equal symmetric breath sounds and chest wall rise. Resp normal respiratory effort Effort and Inspection: respiratory distress Cardio regular rate and regular rhythm Neuro oriented x3 Sensorium / Orientation: awake and alert Psych mental status grossly normal Skin no rashes or lesions noted MDM MDM MDM Narrative Medical decision making narrative: Patient states that she does not want a thing stronger than Toradol for pain. I did offer a Lidoderm patch she accepted. Patient will have right rib series. Rib series on my interpretation is no acute fracture. There is no pneumothorax or other acute pulmonary process on the x- ray. Radiologist does agree. Patient had a Lidoderm patch placed and states that this helped very much with her pain. She will be given prescription for these for home. She does not want any stronger than Tylenol and ibuprofen I counseled to alternate these at home. Patient counseled that she develops fever, shortness of breath she should return to the emergency room for repeat evaluation. Impression: 1. Right rib contusion Radiography Diagnostic Testing: Clinical Impression(s) from Imaging Studies Ribs w/Chest X-Ray 04/12/21 19:47 IMPRESSION: Negative chest and right ribs series. Electronically Signed: Sam Mcclure MD ([place]) at 20:25 EST Reading Location ID and State: [facility] / [place] , Service support , Discharge Plan Triage Chief Complaint: Chest Other ED Provider: Ld Huggins Dx/Rx/DC Orders Instructions: ED Contusion, Rib Prescriptions: New lidocaine 5 % adhesive patch,medicated 1 patch topical DAILY PRN (Reason: pain) Qty: 1 RF: 0 Primary Care Provider: Care Physician,No Primary Referrals: Andrez Fischer MD [NON-STAFF] - Disposition Disposition: Home, Self Care
[2021-04-12 21:26] VITALS: BP 124/84; PULSE 81; RESP 16; O2SAT 95
== END 2021-04-12 21:28 | disposition home or self-care (01) ==
LOC: ED 19:25
PROVIDERS: Emergency Provider Student in an Organized Health Care Education/Training Program; Visit Provider Student in an Organized Health Care Education/Training Program
DX: S20.211A Contusion of right front wall of thorax, initial encounter (principal); E11.9 Type 2 diabetes mellitus without complications; W19.XXXA Unspecified fall, initial encounter; Z87.891 Personal history of nicotine dependence; I10 Essential (primary) hypertension; F43.10 Post-traumatic stress disorder, unspecified
CPT/HCPCS: 71101; 96372; 99283

== ENCOUNTER 2021-05-23 10:55 | Emergency (ER) | payer MEDICAID, SELFPAY ==
[2021-05-23 10:57] VITALS: BP 162/102; PULSE 86; RESP 18; TEMP 36.9; O2SAT 99; BMI 36.9
--- NOTE | 2021-05-23 11:16 | RAD_ITS ---
EXAM: XR CHEST, 1 VIEW : 1975 CLINICAL INDICATION: chest pain TECHNIQUE: Frontal view of the chest. This report was created using [email or web address] report generation technology. COMPARISON: 04/12/2021 FINDINGS: LUNGS AND PLEURAL SPACES: Unremarkable. No consolidation or edema. No pneumothorax. No effusion. HEART: Unremarkable. Cardiac silhouette not enlarged. MEDIASTINUM: Central airways and mediastinal contour are unremarkable. BONES/JOINTS: Unremarkable. SOFT TISSUES: Unremarkable. RAD/Chest 1 View (Portable) IMPRESSION: No radiographic evidence of acute cardiopulmonary disease. at 1249 Reported and signed by: Amaury Jaffe MD Electronically Signed: Amaury Jaffe MD at 12:48 EDT ,
--- NOTE | 2021-05-23 11:16 | EKG12_ITS ---
Test Reason : CP Blood Pressure : / mmHG Vent. Rate : 082 BPM Atrial Rate : 082 BPM P-R Int : 128 ms QRS Dur : 086 ms QT Int : 406 ms P-R-T Axes : 030 000 027 degrees QTc Int : 474 ms Normal sinus rhythm Normal ECG Confirmed by KIKI SANTIAGO, CONNIE ([id number]), news videotape editor ARPITA REDMAN ([id number]) on 05/26/2021 11:03:52 A M Referred By: RADHA Confirmed By:RAI SWANSON MD
[2021-05-23 11:34] LABS: Absolute Lymphocyte Count 1.88 X10^3/uL (0.83-4.51); Absolute Neutrophil Count 4.9 X10^3/uL (2.0-7.7); Basophil# 0.06 X10^3/uL; Basophil% 0.8 % (0-1); Eosinophil# 0.19 X10^3/uL; Eosinophils% 2.6 % (0-5); Hemoglobin 15.8 g/dL (12.0-15.0); Lymphocyte # 1.88 X10^3/ul (0.83-4.51); Lymphocyte % 25.4 % (19-41); Mean Corp Hgb Conc 35.1 g/dL (32-36); Mean Corpuscular Hgb 31.8 pg (27.0-32.0); Mean Corpuscular Volume 90.5 fL (81-99); Mean Platelet Vol. 11.2 fl (6.2-12.0); Monocyte% 5.4 % (0-10); NRBC Flagged by Analyzer 0 % (0-5); Neutrophil # 4.86 X10^3/uL (2.7-7.7); Neutrophil % 65.5 % (47-70); Platelet Count 204 K/mm3 (150-450); RBC Distribution Width CV 12.1 % (11.6-14.6); Red Blood Count 4.97 M/mm3 (4.2-5.4); White Blood Count 7.4 K/mm3 (4.4-11.0)
[2021-05-23 11:40] LABS: Prothrombin Time (Protime)PT. 12.5 SECONDS (11.7-14.9)
[2021-05-23 11:49] LABS: Anion Gap 7 (5-15); BUN 12 mg/dL (7-18); BUN/Creat Ratio 14.5 RATIO (10-20); Calcium,Total 9.4 mg/dL (8.5-10.1); Chloride 103 mmol/L (98-107); Creatinine, Serum 0.83 mg/dL (0.55-1.02); EST Glomerular Filtration Rate 80 mL/min (>60); Est Glom Filt Rate - Afr Amer 96 mL/min (>60); Estimated Creatinine Clearance 69.12 ml/min; Glucose 330 mg/dL (74-106); Potassium 3.7 mmol/L (3.5-5.1); Sodium Level 133 mmol/L (136-145); Troponin-I HS 5 pg/mL (3.0-54.0)
[2021-05-23 12:30] VITALS: BP 155/98; PULSE 76; RESP 27; O2SAT 98
[2021-05-23 12:31] VITALS: O2SAT 98
--- NOTE | 2021-05-23 12:38 | ED.VIS.CHEST ---
HPI History of Present Illness Chief Complaint: Chest Pain Narrative Narrative: Patient presents to the emergency department with chest pain it started about 8 hours ago. It continued at work and she was sent to the ED. It is somewhat worse with twisting. She does not have radiation into her back. She has no pleuritic component. No lower extreme edema or calf pain. No recent cough congestion fevers or chills. No epigastric pain. PFSH PFSH Medical History Diabetes Ectopic Gallbladder calculus with acute cholecystitis Hypertension PTSD (post-traumatic stress disorder) Smoker Home Medications lidocaine 1 patch TOPICAL DAILY PRN #1 ea 04/12/21 [Rx Last Taken Unknown] Allergy/AdvReac Type Severity Reaction Status Date / Time Penicillins Allergy Hives Verified 05/23/21 12:22 venom-honey bee Allergy Anaphylaxis Verified 05/23/21 12:22 [bee venom (honey bee)] Surgical History History of tubal ligation Hx of cholecystectomy Social History Smoking Status: Former smoker ROS ROS ED ROS Narrative Past medical history: Reviewed includes diabetes, she is a smoker, she does have history of hypertension but she is not being treated. Medications: Reviewed Social history: Noncontributory Review of systems: All systems negative except as indicated General: No fever Eyes: No visual changes ENT: No upper airway congestion, normal voice Neck: No neck pain Cardiovascular: Chest pain as in HPI Respiratory: No shortness of breath or cough Gastrointestinal: No abdominal pain, nausea vomiting or diarrhea Genitourinary: No dysuria Musculoskeletal: Denies myalgias no difficulty with ambulation Skin: No rash Neurological: No memory loss, confusion or any focal weakness Psych: No recent behavioral changes Hematologic: No easy bleeding or easy bruising EXAM Physical Exam Narrative Exam Narrative: Physical exam General: Well nourished, Well developed, No Acute Distress Head: Normocephalic, Atraumatic Eyes: Conjunctiva not pale ENT: Moist mucous membranes Neck: Supple, Nontender, No lymphadenopathy Cardiovascular: Regular rate, Regular rhythm. Somewhat reproducible chest wall pain throughout. Respiratory: No distress, CTA bilaterally Abdomen: Soft, Nontender, Nondistended Back: Nontender, Normal Inspection. Negative for: CVA tenderness Extremities: Nontender, No edema Skin: Normal color, No rash Neurological: Alert, Normal Strength, Normal Sensation Psychological: Normal affect Const Vital Signs: 05/23/21 10:57 05/23/21 12:30 05/23/21 12:31 Temperature 98.4 F Temperature Source Temporal Pulse Rate 86 76 Respiratory Rate 18 27 H Respiratory Effort Normal Non-Labored Blood Pressure 162/102 H 155/98 H Blood Pressure Mean 122 117 Pulse Ox 99 98 98 Oxygen Delivery Method Room Air Room Air Room Air Heart Score History: Slightly/Non-Suspicious ECG: Normal Age: </= 45 years Risk Factors: >/= 3 Risk Factors or History of CAD Troponin: </= Normal Limit Score: 2 MDM MDM MDM Narrative Medical decision making narrative: Patient has an unremarkable emergency department work-up she rules out for cardiac disease she has no PE or DVT risk factors and she does not have any tachycardia or pleuritic chest pain. She can safely be discharged. EKG interpretation Sinus rhythm with a rate 82. Normal [place] and QTc intervals. No ischemic changes. Interpreted by emergency doctor Lab Data Labs: Laboratory Results - last 24 hr 05/23/21 05/23/21 05/23/21 11:20 11:20 11:20 WBC 7.4 RBC 4.97 Hgb 15.8 H Hct 45.0 MCV 90.5 MCH 31.8 MCHC 35.1 RDW Std Deviation 40.0 RDW Coeff of Johnnie 12.1 Plt Count 204 MPV 11.2 Immature Gran % (Auto) 0.300 Neut % (Auto) 65.5 Lymph % (Auto) 25.4 [place] % (Auto) 5.4 Eos % (Auto) 2.6 Baso % (Auto) 0.8 Absolute Neuts (auto) 4.9 Absolute Lymphs (auto) 1.88 Nucleated RBC % 0 PT 12.5 INR 1.0 Sodium 133 L Potassium 3.7 Chloride 103 Carbon Dioxide 23.0 Anion Gap 7 BUN 12 Creatinine 0.83 Estim Creat Clear Calc 69.12 Est GFR (MDRD) Af Amer 96 Est GFR (MDRD) Non-Af 80 BUN/Creatinine Ratio 14.5 Glucose 330 H Calcium 9.4 Troponin I High Sens 5 05/23/21 14:20 WBC RBC Hgb Hct MCV MCH MCHC RDW Std Deviation RDW Coeff of Johnnie Plt Count MPV Immature Gran % (Auto) Neut % (Auto) Lymph % (Auto) [place] % (Auto) Eos % (Auto) Baso % (Auto) Absolute Neuts (auto) Absolute Lymphs (auto) Nucleated RBC % PT INR Sodium Potassium Chloride Carbon Dioxide Anion Gap BUN Creatinine Estim Creat Clear Calc Est GFR (MDRD) Af Amer Est GFR (MDRD) Non-Af BUN/Creatinine Ratio Glucose Calcium Troponin I High Sens 7 Radiography Diagnostic Testing: Clinical Impression(s) from Imaging Studies Chest X-Ray 05/23/21 11:16 IMPRESSION: No radiographic evidence of acute cardiopulmonary disease. at 1249 Reported and signed by: Amaury Jaffe MD Electronically Signed: Amaury Jaffe MD at 12:48 EDT , Discharge Plan Triage Chief Complaint: Chest Pain ED Provider: Walter Xie Dx/Rx/DC Orders Clinical Impression: Chest pain Instructions: ED Chest Pain, Noncardiac Prescriptions: No Action lidocaine 5 % adhesive patch,medicated 1 patch topical DAILY PRN (Reason: pain) Qty: 1 RF: 0 Primary Care Provider: Care Physician,No Primary Referrals: Care Physician,No Primary [Primary Care Provider] - 2 Days Disposition Disposition: Home, Self Care
[2021-05-23] MEDS: Famotidine 200 MG/20 ML MDV 20 MG in 0.9% Normal Saline (Pres. free 8 ML 300 MG IV (12:58)
[2021-05-23] MEDS: Ketorolac 15 MG/ML Vial IV (12:58)
[2021-05-23 14:52] LABS: Troponin-I HS 7 pg/mL (3.0-54.0)
[2021-05-23 15:36] VITALS: BP 135/92; PULSE 87; RESP 18; O2SAT 98
== END 2021-05-23 15:38 | disposition home or self-care (01) ==
PROVIDERS: Emergency Provider Emergency Medicine; Visit Provider Emergency Medicine
DX: R07.9 Chest pain, unspecified (principal); Z87.891 Personal history of nicotine dependence
CPT/HCPCS: 71045; 80048; 84484; 85025; 85610; 93005; 96365; 96366; 96375; 99285; A4216; J3490

== ENCOUNTER 2021-05-26 12:22 | Emergency (ER) | payer MEDICAID, SELFPAY ==
[2021-05-26 12:23] VITALS: BP 191/117; PULSE 89; RESP 16; TEMP 36.6; O2SAT 98; BMI 38.0
--- NOTE | 2021-05-26 14:01 | ED.RN ---
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
== END 2021-05-26 14:00 | disposition left against medical advice (07) ==
LOC: ED 14:03
DX: Z53.21 Procedure and treatment not carried out due to patient leaving prior to being seen by health care provider (principal)

== ENCOUNTER 2021-07-14 21:11 | Emergency (ER) | payer MEDICAID, SELFPAY ==
[2021-07-14 21:12] VITALS: BP 167/111; PULSE 99; RESP 16; TEMP 36.2; O2SAT 99; BMI 35.0
[2021-07-14 21:14] VITALS: BP 167/111; PULSE 99; RESP 16; TEMP 36.2; O2SAT 99
--- NOTE | 2021-07-14 22:32 | EX.ED.DYSGE1 ---
HPI History of Present Illness Chief Complaint: Wound Informant: patient Onset/Context/Timing Onset: Weeks (1) Context: Gradual Onset Timing: Continuous Quality: sore, burning Location: BLE Current Severity: Severe Maximum Severity: Severe Worsened by: Palpation or even touching affected areas Relieved by: Remaining still in leaving alone Associated Symptoms Associated Symptoms: None Narrative Narrative: Patient with painful rash in both lower legs and now it is spreading to the rest of my body as she points to a single small red lesion on her left hand. She states this started spontaneously and it has happened before. It esqueda and she cannot wrap it because it hurts so bad even though her work requires it. She is looking for a solution feel she needs antibiotics, that has helped in the past and she has an appointment with her doctor tomorrow morning. Her diabetes is uncontrolled for at least the past 4 years. PFSH PFSH Medical History Diabetes Ectopic Gallbladder calculus with acute cholecystitis Hypertension PTSD (post-traumatic stress disorder) Smoker Home Medications lidocaine 1 patch TOPICAL DAILY PRN #1 ea 04/12/21 [Rx Last Taken Unknown] cephalexin 500 mg PO Q6 #40 capsule 07/14/21 [Rx Last Taken Unknown] sulfamethoxazole-trimethoprim 1 tab PO BID #14 tablet 07/14/21 [Rx Last Taken Unknown] Allergy/AdvReac Type Severity Reaction Status Date / Time Penicillins Allergy Hives Verified 07/14/21 21:14 venom-honey bee Allergy Anaphylaxis Verified 07/14/21 21:14 [bee venom (honey bee)] Surgical History History of tubal ligation Hx of cholecystectomy Social History Smoking Status: Former smoker ROS ROS ED Constitutional Constitutional ED: Denies chills or fever(s) Musculoskeletal Musculoskeletal: Reports extremity pain; Denies neck pain Integumentary Reports rash; Denies Abrasions or wounds Neurologic Neurologic: Denies paresthesias or weakness EXAM Physical Exam Const Vital Signs: 07/14/21 21:12 07/14/21 21:14 Temperature 97.1 F L 97.1 F L Temperature Source Temporal Temporal Pulse Rate 99 99 Respiratory Rate 16 16 Blood Pressure 167/111 H 167/111 H Blood Pressure Mean 129 129 Pulse Ox 99 99 Oxygen Delivery Method Room Air Room Air Positive well nourished and well developed General Appearance ED: well developed and NAD Neck full ROM and supple Back/Spine normal ROM and normal to inspection Neuro oriented x3, no focal motor deficits and no sensory deficits noted Sensorium / Orientation: alert Psych mental status grossly normal and thought process normal Skin Skin Narrative: Scattered erythematous lesions throughout both lower legs mostly on the shins but a few in the lower/distal calf also. Worse on the right than the left. 1 single small erythematous scabbed lesion on the left hand palm. The lesions on the right lower extremity appear to be superficially ulcerated with surrounding erythema, some with scabs. None or abscess. No discharge expressible from any of them. All very tender to palpation. All compartments soft and nondistended. Nontender wherever there is are no wounds/rash. Rashes: no rashes MDM MDM MDM Narrative Medical decision making narrative: No abscesses, some of them appear consistent with early abscesses, but it does not have a MRSA appearance. I am going to cover her broadly with cephalexin and Bactrim, and have her follow-up. She is asking about specialty wound care dressings which we do not have here, I offered to have them dressed with bacitracin, gauze, and an [place] wrap. This also has the appearance potentially of erythema nodosum, but she does not have an obvious reason for that which I can see. she has had no medication changes or new medicines recently. I encouraged follow-up especially if antibiotics do not help. Discharge Plan Triage Chief Complaint: Wound ED Provider: Daniel Melo Dx/Rx/DC Orders Clinical Impression: Nodule of skin of both lower extremities, Uncontrolled type 2 diabetes mellitus, Hypertension Instructions: Wound Infection Tx Prescriptions: New sulfamethoxazole-trimethoprim [sulfamethoxazole-trimethoprim] 1 TABLET tablet 1 tab PO BID Qty: 14 RF: 0 cephalexin [cephalexin] 500 MG capsule 500 mg PO Q6 Qty: 40 RF: 0 No Action lidocaine 5 % adhesive patch,medicated 1 patch topical DAILY PRN (Reason: pain) Qty: 1 RF: 0 Primary Care Provider: Care Physician,No Primary Referrals: Care Physician,No Primary [Primary Care Provider] - Doctor,Your [STAFF PHYSICIAN] - [facility] appointment Disposition Disposition: Home, Self Care
[2021-07-14] MEDS: Smz/Tmp Ds Tablet 1 TABLET PO (22:39)
[2021-07-14] MEDS: Cephalexin 250 MG Capsule 500 MG PO (22:39)
[2021-07-14 23:07] VITALS: BP 151/103; PULSE 84; RESP 16
== END 2021-07-14 23:08 | disposition home or self-care (01) ==
PROVIDERS: Emergency Provider Emergency Medicine; Visit Provider Emergency Medicine
DX: M79.662 Pain in left lower leg (principal); E11.9 Type 2 diabetes mellitus without complications; Z87.891 Personal history of nicotine dependence; L52 Erythema nodosum; R22.9 Localized swelling, mass and lump, unspecified; I10 Essential (primary) hypertension; M79.661 Pain in right lower leg
CPT/HCPCS: 99283

== ENCOUNTER 2021-08-11 11:16 | Emergency (ER) | payer MEDICAID, SELFPAY ==
[2021-08-11 11:18] VITALS: BP 185/114; PULSE 92; RESP 18; TEMP 36.6; O2SAT 98; BMI 36.2
--- NOTE | 2021-08-11 12:10 | EDS_ITS ---
HPI History of Present Illness Chief Complaint: Dental Informant: patient Narrative Narrative: Patient is having pain in the left lower jaw. Her teeth have been bothering her for a while. She just had 1 break off. It is bothering her more. She has been trying to get into a dentist but has had trouble due to having [employer] insurance. No fevers or chills. Chewing her real hot or real cold makes it worse. She tried Tylenol without benefit. Of note, she does have allergy to penicillins. Her med list lists cephalexin and doxycycline but she is not on these now. [facility] Medical History Anxiety and depression Diabetes Ectopic Gallbladder calculus with acute cholecystitis Hypertension Open wound of both lower extremities Osteoarthritis PTSD (post-traumatic stress disorder) Smoker Type 2 diabetes mellitus Urticaria Home Medications lidocaine 1 patch TOPICAL DAILY PRN #1 ea 04/12/21 [Rx Last Taken Unknown] cephalexin 500 mg PO Q6 #40 capsule 07/14/21 [Rx Last Taken Unknown] doxycycline monohydrate 100 mg capsule 100 mg PO BID #14 cap 07/15/21 [Rx Last Taken Unknown] escitalopram oxalate 5 mg tablet 5 mg PO DAILY #60 tab 07/15/21 [Rx Last Taken Unknown] famotidine 20 mg tablet 20 mg PO QHS #90 tab 07/15/21 [Rx Last Taken Unknown] fexofenadine 60 mg tablet 60 mg PO BID #180 tab 07/15/21 [Rx Last Taken Unknown] gabapentin 100 mg capsule 100 mg PO QHS #60 cap 07/15/21 [Rx Last Taken Unknown] glimepiride 4 mg tablet 4 mg PO QAM #180 tab 07/15/21 [Rx Last Taken Unknown] losartan 50 mg tablet 50 mg PO DAILY #90 tab 07/15/21 [Rx Last Taken Unknown] metformin 1,000 mg tablet 1,000 mg PO BID #180 tab 07/15/21 [Rx Last Taken Unknown] clindamycin HCl [Cleocin HCl] 300 mg PO Q6H #40 cap 08/11/21 [Rx Last Taken Unknown] naproxen [Naprosyn] 500 mg PO BID PRN #20 tab 08/11/21 [Rx Last Taken Unknown] Allergy/AdvReac Type Severity Reaction Status Date / Time Penicillins Allergy Hives Verified 08/11/21 11:17 venom-honey bee Allergy Anaphylaxis Verified 08/11/21 11:17 [bee venom (honey bee)] Family History Other Alcoholism Anxiety Arthritis Asthma Cancer Cervical cancer Depression Diabetes Heart disease Hypertension Myocardial infarction Ovarian cancer Surgical History History of tubal ligation Hx of cholecystectomy Social History Smoking Status: Former smoker alcohol intake: current alcohol intake frequency: holidays/special occasions only substance use type: does not use what type of physical activity do you participate in: walking ROS ROS ED ENT ENT ED: Reports other Details: See history of present illness. No trouble swallowing. No facial pain. No trauma. Cardiovascular Cardiovascular: Denies chest pain Gastrointestinal Gastrointestinal: Denies nausea or vomiting Musculoskeletal Musculoskeletal: Denies arthralgias Integumentary Denies rash Hematologic/Lymphatic Hematologic/Lymphatic: Denies easy bleeding or easy bruising EXAM Physical Exam Const Vital Signs: 08/11/21 11:18 Temperature 97.9 F Temperature Source Temporal Pulse Rate 92 Respiratory Rate 18 Blood Pressure 185/114 H Blood Pressure Mean 137 Pulse Ox 98 Oxygen Delivery Method Room Air Positive well nourished and well developed General Appearance ED: well developed and NAD HEENT HEENT Narrative: Patient's lower jaw left lateral incisor is broken off. However most of them have signs of dental caries. There is some erythema of the gums that is more local. No signs of ANUG. Floor the mouth is soft. Voice is normal. Swallowing is normal. No Renaldo's. No external or facial swelling. Negative for trauma Eyes EOMs intact bilaterally Neck no lymphadenopathy Resp normal respiratory effort Neuro Sensorium / Orientation: alert Psych mental status grossly normal Skin no rashes or lesions noted MDM MDM MDM Narrative Medical decision making narrative: Patient will be given antibiotics and nonsteroidals. We will use clindamycin due to her allergy. I am giving her dental resource sheet. We discussed reasons to return including trouble swallowing, fevers, progressive swelling or facial swelling or neck swelling. Discharge Plan Triage Chief Complaint: Dental ED Provider: Vitor Davis Dx/Rx/DC Orders Clinical Impression: Pain, dental, Fracture of tooth Instructions: ED Dental Pain Prescriptions: New clindamycin HCl [Cleocin HCl] 300 MG capsule 300 mg PO Q6H Qty: 40 RF: 0 naproxen [Naprosyn] 500 mg tablet 500 mg PO BID PRN (Reason: pain) Qty: 20 RF: 0 No Action fexofenadine [Najma Allergy] 60 mg tablet 60 mg PO BID Qty: 180 RF: 2 famotidine 20 mg tablet 20 mg PO QHS Qty: 90 RF: 2 escitalopram oxalate [Lexapro] 5 mg tablet 5 mg PO DAILY Qty: 60 RF: 1 glimepiride 4 mg tablet 4 mg PO QAM Qty: 180 RF: 3 metformin 1,000 mg tablet 1,000 mg PO BID Qty: 180 RF: 2 losartan 50 mg tablet 50 mg PO DAILY Qty: 90 RF: 0 doxycycline monohydrate 100 mg capsule 100 mg PO BID Qty: 14 RF: 0 gabapentin 100 mg capsule 100 mg PO QHS Qty: 60 RF: 0 lidocaine 5 % adhesive patch,medicated 1 patch topical DAILY PRN (Reason: pain) Qty: 1 RF: 0 cephalexin [cephalexin] 500 MG capsule 500 mg PO Q6 Qty: 40 RF: 0 Primary Care Provider: Brett Yanez Referrals: Brett Yanez MD [Primary Care Provider] - Dentist,Your [STAFF PHYSICIAN] - As soon as possible Disposition Disposition: Home, Self Care
--- NOTE | 2021-08-11 12:44 | ED.RN ---
this rn went to room to administer oxyir, pt apparently left prior to pain medication and d/c papers.
== END 2021-08-11 12:46 | disposition home or self-care (01) ==
PROVIDERS: Emergency Provider Emergency Medicine; PCP Internal Medicine; Visit Provider Emergency Medicine
DX: S02.5XXA Fracture of tooth (traumatic), initial encounter for closed fracture (principal); E11.9 Type 2 diabetes mellitus without complications; Z87.891 Personal history of nicotine dependence; I10 Essential (primary) hypertension; M19.90 Unspecified osteoarthritis, unspecified site; Z79.899 Other long term (current) drug therapy; F41.9 Anxiety disorder, unspecified; F32.A Depression, unspecified; F43.10 Post-traumatic stress disorder, unspecified; Z79.84 Long term (current) use of oral hypoglycemic drugs; K02.9 Dental caries, unspecified; X58.XXXA Exposure to other specified factors, initial encounter; Y93.9 Activity, unspecified; Y99.9 Unspecified external cause status; Y92.9 Unspecified place or not applicable
CPT/HCPCS: 99281

== ENCOUNTER 2021-10-06 12:56 | Emergency (ER) | payer MEDICAID, SELFPAY ==
[2021-10-06 12:58] VITALS: BP 155/106; PULSE 125; RESP 18; TEMP 36.4; O2SAT 96; BMI 38.4
--- NOTE | 2021-10-06 13:18 | CT_ITS ---
STUDY: CT ABDOMEN AND PELVIS WITHOUT CONTRAST REASON FOR EXAM: Female, 45 years old. Right flank pain RADIATION DOSAGE (If Supplied By Facility): CTDIvol = ( 20.10 ) mGy, DLP = ( 1090.88 ) mGycm TECHNIQUE: Transaxial images were obtained from the dome of the diaphragm to the symphysis pubis without oral contrast, and without intravenous contrast. Sagittal and coronal images were reconstructed. Individualized dose optimization techniques were used for this CT. COMPARISON: 07/04/2018 FINDINGS: The visualized lung bases are unremarkable. The visualized portions of the heart are within normal limits. The lack of intravenous contrast limits evaluation of solid visceral organs. There is hepatomegaly. There are surgical clips in the gallbladder fossa consistent with a prior cholecystectomy. There is splenomegaly. Normal pancreas. Normal bilateral adrenal glands. There is right sided pelviectasis secondary to a 12.2 mm calculus within the renal pelvis. There is right perinephric stranding. There are additional nonobstructing right renal calculi measuring up to 6 mm. Normal left kidney. Normal visualized stomach. Normal small intestine. Normal colon. The appendix is visualized and appears normal. Normal abdominal aorta. Normal inferior vena cava. Normal retroperitoneum. Normal urinary bladder. There is a 3.7 x 4.1 cm right adnexal cyst. There is a left tubal ligation clip in place. There is an additional tubal ligation clip within the pelvis right of midline. Normal abdominal wall. There are diffuse degenerative changes of the visualized lumbar spine. CT/Abdomen/Pelvis without Cont IMPRESSION: Right pelviectasis secondary to a 12.2 mm calculus within the right renal pelvis. 3.7 x 4.1 cm right adnexal cyst, recommend pelvic ultrasound for further characterization. Nonobstructing right renal calculi measuring up to 6 mm. Hepatosplenomegaly. Electronically Signed: Sissy Ovalles MD at 13:57 EDT ,
--- NOTE | 2021-10-06 13:19 | EX.ED.DYSGE1 ---
HPI History of Present Illness Chief Complaint: Flank Pain Narrative Narrative: Patient presents with right-sided flank pain that started relatively abruptly yesterday, it is colicky there are times where she has minimal pain. She has no fever or chills the pain does radiate to the side of the abdomen but not into the suprapubic region. She has no hematuria or dysuria or urgency or frequency. She has no left-sided abdominal pain. She has no fevers or chills. No history of kidney stones in the past. [facility] Medical History Anxiety and depression Diabetes Ectopic Gallbladder calculus with acute cholecystitis Hypertension Open wound of both lower extremities Osteoarthritis PTSD (post-traumatic stress disorder) Smoker Type 2 diabetes mellitus Urticaria Home Medications lidocaine 5 % topical patch 1 patch topical DAILY PRN pain #1 ea 04/12/21 [Rx Last Taken Unknown] famotidine 20 mg tablet 20 mg PO QHS #90 tabs 07/15/21 [Rx Last Taken Unknown] fexofenadine 60 mg tablet (Najma Allergy) 60 mg PO BID #180 tabs 07/15/21 [Rx Last Taken Unknown] gabapentin 100 mg capsule 100 mg PO QHS #60 caps 07/15/21 [Rx Last Taken Unknown] glimepiride 4 mg tablet 4 mg PO QAM #180 tabs 07/15/21 [Rx Last Taken Unknown] losartan 50 mg tablet 50 mg PO DAILY #90 tabs 07/15/21 [Rx Last Taken Unknown] metformin 1,000 mg tablet 1,000 mg PO BID #180 tabs 07/15/21 [Rx Last Taken Unknown] clindamycin HCl 300 mg capsule (Cleocin HCl) 300 mg PO Q6H #40 caps 08/11/21 [Rx Last Taken Unknown] naproxen 500 mg tablet (Naprosyn) 500 mg PO BID PRN pain #20 tabs 08/11/21 [Rx Last Taken Unknown] blood sugar diagnostic (Blood Glucose Test strips) #100 ea 08/14/21 [Rx Last Taken Unknown] escitalopram oxalate 5 mg tablet (Lexapro) 5 mg PO DAILY #90 tabs 08/14/21 [Rx Last Taken Unknown] tramadol 50 mg tablet 50 mg PO BID PRN pain #14 tabs 06/09/22 [Rx Last Taken Unknown] Allergy/AdvReac Type Severity Reaction Status Date / Time Penicillins Allergy Hives Verified 10/06/21 13:00 venom-honey bee Allergy Anaphylaxis Verified 10/06/21 13:00 [bee venom (honey bee)] Family History Other Alcoholism Anxiety Arthritis Asthma Cancer Cervical cancer Depression Diabetes Heart disease Hypertension Myocardial infarction Ovarian cancer Surgical History History of tubal ligation Hx of cholecystectomy Social History Smoking Status: Former smoker alcohol intake: current alcohol intake frequency: holidays/special occasions only substance use type: does not use what type of physical activity do you participate in: walking ROS ROS ED ROS Narrative Past medical history: Reviewed Medications: Reviewed Social history: Noncontributory Review of systems: All systems negative except as indicated General: No fever Eyes: No visual changes ENT: No upper airway congestion, normal voice Neck: No neck pain Cardiovascular: No chest pain Respiratory: No shortness of breath or cough Gastrointestinal: As in HPI Genitourinary: No dysuria Musculoskeletal: Denies myalgias no difficulty with ambulation Skin: No rash Neurological: No memory loss, confusion or any focal weakness Psych: No recent behavioral changes Hematologic: No easy bleeding or easy bruising EXAM Physical Exam Narrative Exam Narrative: Physical exam General: Patient appears uncomfortable. Head: Normocephalic, Atraumatic Eyes: Conjunctiva not pale ENT: Moist mucous membranes Neck: Supple, Nontender, No lymphadenopathy Cardiovascular: Regular rate, Regular rhythm Respiratory: No distress, CTA bilaterally Abdomen: Soft, minimal tenderness in the anterior axillary line of the lower abdomen. Back: Nontender, Normal Inspection. Right-sided CVA tenderness, ill reproduced Extremities: Nontender, No edema Skin: Normal color, No rash Neurological: Alert, Normal Strength, Normal Sensation Psychological: Normal affect Const Vital Signs: 10/06/21 12:58 10/06/21 13:20 Temperature 97.6 F L Temperature Source Temporal Pulse Rate 125 H Respiratory Rate 18 Respiratory Effort Normal Non-Labored Respiratory Pattern Normal Blood Pressure 155/106 H Blood Pressure Mean 122 Pulse Ox 96 Oxygen Delivery Method Room Air MDM MDM MDM Narrative Medical decision making narrative: Patient is found to have a significant kidney stone, she has leukocytosis glucosuria and working on a UTI. She will need surgery. I also start antibiotics. I talked to urology at our facility who deferred to a tertiary care center. I called [facility] and the transfer is pending. Lab Data Labs: Laboratory Results - last 24 hr 10/06/21 10/06/21 10/06/21 13:20 13:20 14:35 WBC 18.2 H RBC 4.67 Hgb 14.0 Hct 41.9 MCV 89.7 MCH 30.0 MCHC 33.4 RDW Std Deviation 39.2 RDW Coeff of Johnnie 12.1 Plt Count 229 MPV 11.0 Immature Gran % (Auto) 0.600 Neut % (Auto) 90.3 H Lymph % (Auto) 3.4 L Dare % (Auto) 5.0 Eos % (Auto) 0.3 Baso % (Auto) 0.4 Absolute Neuts (auto) 16.4 H Absolute Lymphs (auto) 0.62 L Nucleated RBC % 0 Sodium 130 L Potassium 4.3 Chloride 99 Carbon Dioxide 24.0 Anion Gap 7 BUN 10 Creatinine 1.06 H Estim Creat Clear Calc 54.12 Est GFR (MDRD) Af Amer 72 Est GFR (MDRD) Non-Af 60 BUN/Creatinine Ratio 9.4 L Glucose 401 H Calcium 8.8 Total Bilirubin 0.60 AST 18 ALT 23 Alkaline Phosphatase 97 Total Protein 7.8 Albumin 3.4 Globulin 4.4 H Albumin/Globulin Ratio 0.8 L Urine Color Yellow Urine Clarity Cloudy Urine pH 6.0 Ur Specific [place] 1.015 Urine Protein 100 H Urine Glucose (UA) 1000 H Urine Ketones 5 H Urine Occult Blood 50 H Urine Nitrite Negative Urine Bilirubin Negative Urine Urobilinogen Normal Ur Leukocyte Esterase 500 H Urine RBC 0-5 SEEN Urine WBC 50-100 SEEN Ur Squamous Epith Cells 0-5 SEEN Urine Bacteria 0 SEEN Urine Mucus 0 SEEN Radiography Diagnostic Testing: Clinical Impression(s) from Imaging Studies Abdomen/Pelvis CT 10/06/21 13:18 IMPRESSION: Right pelviectasis secondary to a 12.2 mm calculus within the right renal pelvis. 3.7 x 4.1 cm right adnexal cyst, recommend pelvic ultrasound for further characterization. Nonobstructing right renal calculi measuring up to 6 mm. Hepatosplenomegaly. Electronically Signed: Sissy Ovalles MD at 13:57 EDT , Discharge Plan Triage Chief Complaint: Flank Pain ED Provider: Walter Xie Dx/Rx/DC Orders Clinical Impression: Kidney calculi, UTI (urinary tract infection) Prescriptions: No Action fexofenadine [Najma Allergy] 60 mg tablet 60 mg PO BID Qty: 180 2RF famotidine 20 mg tablet 20 mg PO QHS Qty: 90 2RF glimepiride 4 mg tablet 4 mg PO QAM Qty: 180 3RF Rx Instructions: administer with breakfast metformin 1,000 mg tablet 1,000 mg PO BID Qty: 180 2RF losartan 50 mg tablet 50 mg PO DAILY Qty: 90 0RF gabapentin 100 mg capsule 100 mg PO QHS Qty: 60 0RF (DME) Blood Glucose Test Strip See Rx Instructions .ROUTE .MEDSUPPLY Qty: 100 3RF Rx Instructions: Check BID escitalopram oxalate [Lexapro] 5 mg tablet 5 mg PO DAILY Qty: 90 1RF tramadol 50 mg tablet 50 mg PO BID PRN (Reason: pain) Qty: 14 0RF lidocaine 5 % adhesive patch,medicated 1 patch topical DAILY PRN (Reason: pain) Qty: 1 0RF Rx Instructions: leave on most painful area for up to 12 hrs clindamycin HCl [Cleocin HCl] 300 MG capsule 300 mg PO Q6H Qty: 40 0RF naproxen [Naprosyn] 500 mg tablet 500 mg PO BID PRN (Reason: pain) Qty: 20 0RF Primary Care Provider: Brett Yanez Referrals: Brett Yanez MD [Primary Care Provider] - Disposition Disposition: DC/Tx to Another Type of HCF
[2021-10-06] MEDS: 0.9% Normal Saline 1,000 ML 1000 ML IV (13:25)
[2021-10-06] MEDS: Ondansetron 4 MG/2 ML Vial IV (13:25)
[2021-10-06] MEDS: Morphine 4 MG/ML Syringe IV (13:26)
[2021-10-06] MEDS: Ketorolac 15 MG/ML Vial IV (13:30)
[2021-10-06 13:36] LABS: Absolute Lymphocyte Count 0.62 X10^3/uL (0.83-4.51); Absolute Neutrophil Count 16.4 X10^3/uL (2.0-7.7); Basophil# 0.08 X10^3/uL; Basophil% 0.4 % (0-1); Eosinophil# 0.05 X10^3/uL; Eosinophils% 0.3 % (0-5); Hematocrit 41.9 % (37-47); Lymphocyte # 0.62 X10^3/ul (0.83-4.51); Lymphocyte % 3.4 % (19-41); Mean Corp Hgb Conc 33.4 g/dL (32-36); Mean Corpuscular Volume 89.7 fL (81-99); Monocyte# 0.91 X10^3/uL; NRBC Flagged by Analyzer 0 % (0-5); Neutrophil # 16.41 X10^3/uL (2.7-7.7); Neutrophil % 90.3 % (47-70); Platelet Count 229 K/mm3 (150-450); RBC Distribution Width CV 12.1 % (11.6-14.6); RBC Distribution Width SD 39.2 fl (35.1-43.9); Red Blood Count 4.67 M/mm3 (4.2-5.4); White Blood Count 18.2 K/mm3 (4.4-11.0)
[2021-10-06 13:54] LABS: ALB/GLOB Ratio 0.8 RATIO (0.9-2.4); AST(SGOT) 18 U/L (15-37); Alanine Aminotransfer ALT/SGPT 23 U/L (13-56); Albumin, Serum 3.4 g/dL (3.2-5.0); Alkaline Phosphatase 97 U/L (45-117); Anion Gap 7 (5-15); BUN 10 mg/dL (7-18); BUN/Creat Ratio 9.4 RATIO (10-20); Calcium,Total 8.8 mg/dL (8.5-10.1); Chloride 99 mmol/L (98-107); Creatinine, Serum 1.06 mg/dL (0.55-1.02); EST Glomerular Filtration Rate 60 mL/min (>60); Est Glom Filt Rate - Afr Amer 72 mL/min (>60); Estimated Creatinine Clearance 54.12 ml/min; Globulin 4.4 g/dL (2.2-4.2); Glucose 401 mg/dL (74-106); Potassium 4.3 mmol/L (3.5-5.1); Protein, Total 7.8 g/dL (6.4-8.2); Sodium Level 130 mmol/L (136-145)
[2021-10-06 14:38] LABS: Bacteria 0 SEEN /hpf (None Seen); Mucous, Urine 0 SEEN /hpf (<or=2+)
[2021-10-06 14:41] LABS: Color, Urine Yellow (Yellow); Glucose, Dipstick 1000 mg/dl (Normal); Ketone-Dipstick 5 mg/dl (Negative); Leukocyte Esterase-Dipstick 500 /ul (Negative); Nitrite-Dipstick Negative (Negative); Occult Blood-Urine 50 /ul (Negative); Protein-Dipstick 100 mg/dl (Negative); Specific Gravity, Urine 1.015 (1.002-1.030); Urine Bilirubin Dipstick Negative (Negative); Urine Clarity Cloudy (Clear); Urine Urobilinogen Normal (Normal)
[2021-10-06 14:56] LABS: White Blood Cells 50-100 SEEN /hpf (0-5)
[2021-10-06 14:57] LABS: Red Blood Cells-Urine 0-5 SEEN /hpf (0-5); Squamous Epithelial Cells - UA 0-5 SEEN /hpf (5-10)
[2021-10-06] MEDS: Ceftriaxone 1 GM/50 ML BAG IV (15:20)
[2021-10-06] MEDS: Insulin Lispro 100 UNIT/ML INSULN.PEN 10 UNIT SC (15:54)
[2021-10-06 15:59] VITALS: BP 131/87; PULSE 110; RESP 14; O2SAT 95
== END 2021-10-06 17:30 | disposition short-term general hospital (02) ==
PROVIDERS: Emergency Provider Emergency Medicine; PCP Internal Medicine; Visit Provider Emergency Medicine
DX: N13.6 Pyonephrosis (principal); E11.9 Type 2 diabetes mellitus without complications; Z87.891 Personal history of nicotine dependence; I10 Essential (primary) hypertension; Z79.84 Long term (current) use of oral hypoglycemic drugs; Z79.899 Other long term (current) drug therapy; M19.90 Unspecified osteoarthritis, unspecified site; F41.9 Anxiety disorder, unspecified; F32.A Depression, unspecified
CPT/HCPCS: 74176; 80053; 81001; 85025; 87811; 96361; 96365; 96375; 99285; A4216; J2405

== ENCOUNTER 2021-10-21 21:30 | Emergency (ER) | payer MEDICAID, SELFPAY ==
[2021-10-21 21:31] VITALS: BP 149/89; PULSE 77; RESP 14; TEMP 36.2; O2SAT 100; BMI 37.8
--- NOTE | 2021-10-21 22:21 | EX.ED.DYSGE1 ---
HPI History of Present Illness Chief Complaint: Flank Pain Informant: patient Narrative Narrative: 45-year-old female states that she has had right flank pain since October 06. She states that she was diagnosed with a kidney stone and was sent to [place] for 1 week where they did nothing for me other than give me morphine and antibiotics. She states the plan was for her to go back to [place] and have surgery but she has no way of getting to [place]. So for the past week she states she has been sitting at home hoping that the pain would go away. She states that today the pain got worse. She denies any fever or dysuria. She notes no vomiting. Patient states that she is irritable because of the pain and has been trying various stretching and attempt to relieve it. If she touches her back it hurts. [facility] Medical History Anxiety and depression Diabetes Ectopic Gallbladder calculus with acute cholecystitis Hypertension Open wound of both lower extremities Osteoarthritis PTSD (post-traumatic stress disorder) Pyelonephritis Renal stones Smoker Type 2 diabetes mellitus Urticaria Home Medications glimepiride 4 mg tablet 4 mg PO QAM #180 tabs 07/15/21 [Rx Last Taken Unknown] metformin 1,000 mg tablet 1,000 mg PO BID #180 tabs 07/15/21 [Rx Last Taken Unknown] blood sugar diagnostic (Blood Glucose Test strips) #100 ea 08/14/21 [Rx Last Taken Unknown] escitalopram oxalate 5 mg tablet (Lexapro) 5 mg PO DAILY #90 tabs 10/14/21 [Rx Last Taken Unknown] famotidine 20 mg tablet 20 mg PO QHS #90 tabs 10/14/21 [Rx Last Taken Unknown] fexofenadine 60 mg tablet (Najma Allergy) 60 mg PO BID #180 tabs 10/14/21 [Rx Last Taken Unknown] gabapentin 100 mg capsule 100 mg PO QHS #60 caps 10/14/21 [Rx Last Taken Unknown] losartan 50 mg tablet 50 mg PO DAILY #90 tabs 10/14/21 [Rx Last Taken Unknown] Allergy/AdvReac Type Severity Reaction Status Date / Time Penicillins Allergy Hives Verified 10/21/21 21:33 venom-honey bee Allergy Anaphylaxis Verified 10/21/21 21:33 [bee venom (honey bee)] Family History Other Alcoholism Anxiety Arthritis Asthma Cancer Cervical cancer Depression Diabetes Heart disease Hypertension Myocardial infarction Ovarian cancer Surgical History History of tubal ligation Hx of cholecystectomy Social History Smoking Status: Former smoker alcohol intake: current alcohol intake frequency: holidays/special occasions only substance use type: does not use what type of physical activity do you participate in: walking ROS ROS ED Constitutional Constitutional ED: Denies chills or weight loss Eyes Eyes: Denies change in vision or diplopia ENT ENT ED: Denies ear pain, rhinorrhea or sore throat Cardiovascular Cardiovascular: Denies chest pain, orthopnea, palpitations or racing heartbeat Respiratory/Chest Respiratory/Chest: Denies cough, dyspnea or orthopnea Gastrointestinal Gastrointestinal: Denies abdominal pain, diarrhea, nausea or vomiting Genitourinary Genitourinary ED: Denies dysuria, hematuria or urinary frequency Musculoskeletal Musculoskeletal: Reports back pain; Denies arthralgias or myalgias Integumentary Denies abscess or rash Neurologic Neurologic: Denies headache(s) or weakness Psychiatric Psychiatric: Denies anxiety, depression, suicidal ideation or suicidal thoughts Endocrine Endocrinology: Denies polydipsia, polyphagia or polyuria Allergic/Immunologic Allergic/Immunologic ED: Denies mouth swelling, tongue swelling or urticaria EXAM Physical Exam Const Vital Signs: 10/21/21 21:31 Temperature 97.1 F L Temperature Source Temporal Pulse Rate 77 Respiratory Rate 14 Blood Pressure 149/89 H Blood Pressure Mean 109 Pulse Ox 100 Oxygen Delivery Method Room Air Positive well nourished, well developed and obese General Appearance ED: well developed Nutritional Appearance: obese HEENT Reports normocephalic, head/scalp atraumatic and moist mucous membranes Eyes PERRL and EOMs intact bilaterally Neck no lymphadenopathy, supple and no JVD Resp normal respiratory effort and clear to auscultation bilaterally Cardio regular rate, regular rhythm and no murmurs GI normal to inspection, nondistended, normoactive bowel sounds and non-tender Palpation: soft Back/Spine normal ROM Back/Spine Narrative: When the patient touches her right flank she winces in pain. Extremity normal to inspection General Extremety ED: Negative for edema General Extremity: Negative for edema Neuro oriented x3 and CN's II-XII intact bilaterally Sensorium / Orientation: alert Motor Exam: strength 5/5 throughout Psych mental status grossly normal Mood & Affect: Negative for depressed or tearful Skin no rashes or lesions noted and no wounds MDM MDM MDM Narrative Medical decision making narrative: The patient informed nursing that she would like to leave the emergency department. She subsequently has left Discharge Plan Triage Chief Complaint: Flank Pain ED Provider: Jamir Rodriguez Dx/Rx/DC Orders Clinical Impression: Acute flank pain Prescriptions: No Action glimepiride 4 mg tablet 4 mg PO QAM Qty: 180 3RF Rx Instructions: administer with breakfast metformin 1,000 mg tablet 1,000 mg PO BID Qty: 180 2RF (DME) Blood Glucose Test Strip See Rx Instructions .ROUTE .MEDSUPPLY Qty: 100 3RF Rx Instructions: Check BID famotidine 20 mg tablet 20 mg PO QHS Qty: 90 2RF escitalopram oxalate [Lexapro] 5 mg tablet 5 mg PO DAILY Qty: 90 2RF fexofenadine [Najma Allergy] 60 mg tablet 60 mg PO BID Qty: 180 2RF gabapentin 100 mg capsule 100 mg PO QHS Qty: 60 3RF losartan 50 mg tablet 50 mg PO DAILY Qty: 90 1RF Primary Care Provider: Brett Yanez Referrals: Brett Yanez MD [Primary Care Provider] - As soon as possible Matt Cohen MD [Med Staff - Active Staff] - As soon as possible Disposition Disposition: Against Medical Advice
--- NOTE | 2021-10-21 22:34 | ED.RN ---
Pt. requested new Dr. This RN told pt. Dr. Rodriguez would be the only DrAry available to see her. She stated she wanted her IV removed and that she would seek treatment elsewhere. Pt. refused to sign AMA form.
[2021-10-21 22:39] LABS: Absolute Lymphocyte Count 1.74 X10^3/uL (0.83-4.51); Absolute Neutrophil Count 4.3 X10^3/uL (2.0-7.7); Basophil# 0.05 X10^3/uL; Basophil% 0.7 % (0-1); Eosinophil# 0.29 X10^3/uL; Eosinophils% 4.2 % (0-5); Hematocrit 38.2 % (37-47); Hemoglobin 12.5 g/dL (12.0-15.0); Lymphocyte # 1.74 X10^3/ul (0.83-4.51); Lymphocyte % 25.3 % (19-41); Mean Corp Hgb Conc 32.7 g/dL (32-36); Mean Corpuscular Hgb 29.7 pg (27.0-32.0); Mean Corpuscular Volume 90.7 fL (81-99); Mean Platelet Vol. 11.2 fl (6.2-12.0); Monocyte# 0.46 X10^3/uL; Monocyte% 6.7 % (0-10); NRBC Flagged by Analyzer 0 % (0-5); Neutrophil # 4.32 X10^3/uL (2.7-7.7); Neutrophil % 62.8 % (47-70); Platelet Count 300 K/mm3 (150-450); RBC Distribution Width CV 11.9 % (11.6-14.6); RBC Distribution Width SD 39.3 fl (35.1-43.9); Red Blood Count 4.21 M/mm3 (4.2-5.4); White Blood Count 6.9 K/mm3 (4.4-11.0)
[2021-10-21 22:56] LABS: Internal QC Validated? YES +Cl - CLEAR BKGD; Pregnancy, Serum, hCG Quali. NEGATIVE Negative
[2021-10-21 23:02] LABS: ALB/GLOB Ratio 0.8 RATIO (0.9-2.4); AST(SGOT) 15 U/L (15-37); Alanine Aminotransfer ALT/SGPT 19 U/L (13-56); Albumin, Serum 3.1 g/dL (3.2-5.0); Alkaline Phosphatase 84 U/L (45-117); Anion Gap 5 (5-15); BUN 19 mg/dL (7-18); BUN/Creat Ratio 21.7 RATIO (10-20); Calcium,Total 8.9 mg/dL (8.5-10.1); Chloride 104 mmol/L (98-107); Creatinine, Serum 0.87 mg/dL (0.55-1.02); EST Glomerular Filtration Rate 75 mL/min (>60); Est Glom Filt Rate - Afr Amer 91 mL/min (>60); Estimated Creatinine Clearance 65.94 ml/min; Globulin 4.1 g/dL (2.2-4.2); Glucose 235 mg/dL (74-106); Potassium 3.8 mmol/L (3.5-5.1); Protein, Total 7.2 g/dL (6.4-8.2); Sodium Level 138 mmol/L (136-145)
== END 2021-10-21 22:39 | disposition left against medical advice (07) ==
PROVIDERS: Emergency Provider Emergency Medicine; PCP Internal Medicine; Visit Provider Emergency Medicine
DX: R10.9 Unspecified abdominal pain (principal); E11.9 Type 2 diabetes mellitus without complications; Z87.891 Personal history of nicotine dependence; I10 Essential (primary) hypertension; Z87.442 Personal history of urinary calculi; E66.9 Obesity, unspecified
CPT/HCPCS: 80053; 84703; 85025; 99284; J7040

== ENCOUNTER → 2021-10-31 | Outpatient (CLI) | payer MEDICAID, SELFPAY ==
--- NOTE | 2021-10-31 11:20 | RAD_ITS ---
STUDY: X-RAY - LUMBAR SPINE REASON FOR EXAM: Female, 46 years old. LOW BACK PAIN TECHNIQUE: 2 view(s) of the lumbar spine were obtained. COMPARISON: None FINDINGS: Normal lumbar lordosis. There is no substantial scoliosis. There is a normal alignment of the vertebrae. Normal vertebral bodies and endplates. Normal disc space heights. Evidence of previous tubal ligation. 2 cm calcification overlying the right renal shadow RAD/Lumbar Spine 2 or 3 Views IMPRESSION: Normal x-ray examination of the lumbar spine. Possible right nephrolithiasis Electronically Signed: Jamar Gentile MD at 13:02 EDT ,
--- NOTE | 2021-10-31 11:20 | RAD_ITS ---
STUDY: X-RAY - CERVICAL SPINE REASON FOR EXAM: Female, 46 years old. Headache and neck pain TECHNIQUE: 3 view(s) of the cervical spine were obtained. COMPARISON: None FINDINGS: Normal anterior atlantoaxial articulation. Normal odontoid process. Normal cervical lordosis. Normal vertebral bodies and endplates. Degenerative disc space narrowing in the lower C-spine, preservation of the upper levels. The soft tissue structures are unremarkable. RAD/Cerv Spine 2 or 3 Views IMPRESSION: Degenerative changes in the lower C-spine, no demonstrated fracture or suspicious osseous lesion Electronically Signed: Jamar Gentile MD at 13:00 EDT ,
== END | disposition home or self-care (01) ==
LOC: MTRAD 11:18
PROVIDERS: PCP Internal Medicine; Referring Provider Nurse Practitioner Family; Visit Provider Nurse Practitioner Family
DX: R20.2 Paresthesia of skin (principal); M54.50 Low back pain, unspecified; G89.29 Other chronic pain
CPT/HCPCS: 72040; 72100

== ENCOUNTER 2021-11-10 06:42 | Emergency (ER) | payer MEDICAID, SELFPAY ==
[2021-11-10 06:43] VITALS: BP 174/111; PULSE 102; RESP 18; TEMP 36.4; O2SAT 97; BMI 38.7
--- NOTE | 2021-11-10 07:07 | EX.ED.DYSGE1 ---
HPI History of Present Illness Chief Complaint: General Illness Detail of Chief Complaint: sore throat Informant: patient Onset/Context/Timing Onset: Days (3) Context: Gradual Onset Timing: Continuous Quality: sore Location: throat Current Severity: Severe Maximum Severity: Severe Worsened by: swallowing Relieved by: nothing but hasn't tried any medications Associated Symptoms Associated Symptoms: thick rhinorrhea, nasal congestion, hoarseness, headache, [employer] cough, ears Narrative Narrative: Patient has been ill for a few days starting with a sore throat and then developed the above symptoms, now with headache and bilateral symmetric earache, she has tried nothing at home for the symptoms but states it really hurts throughout her throat to swallow. Has not yet taken her blood pressure medication this morning, her pressure here is elevated. She denies any dyspnea or chest pain. No known sick contacts. She states that she stays home, but she also lives with her son. She has not done a home COVID test and is unvaccinated. No recent travel out of the area. [facility] Medical History Anxiety and depression Bilateral carpal tunnel syndrome Chronic low back pain Degenerative arthritis Diabetes Ectopic Gallbladder calculus with acute cholecystitis Hypertension Open wound of both lower extremities Osteoarthritis Paresthesia of upper extremity PTSD (post-traumatic stress disorder) Pyelonephritis Renal stones Smoker Type 2 diabetes mellitus Urticaria Home Medications glimepiride 4 mg tablet 4 mg PO QAM #180 tabs 07/15/21 [Rx Last Taken Unknown] metformin 1,000 mg tablet 1,000 mg PO BID #180 tabs 07/15/21 [Rx Last Taken Unknown] blood sugar diagnostic (Blood Glucose Test strips) #100 ea 08/14/21 [Rx Last Taken Unknown] escitalopram oxalate 5 mg tablet (Lexapro) 5 mg PO DAILY #90 tabs 10/14/21 [Rx Last Taken Unknown] famotidine 20 mg tablet 20 mg PO QHS #90 tabs 10/14/21 [Rx Last Taken Unknown] fexofenadine 60 mg tablet (Najma Allergy) 60 mg PO BID #180 tabs 10/14/21 [Rx Last Taken Unknown] gabapentin 100 mg capsule 100 mg PO QHS #60 caps 10/14/21 [Rx Last Taken Unknown] losartan 50 mg tablet 50 mg PO DAILY #90 tabs 10/14/21 [Rx Last Taken Unknown] arm brace (Wrist Brace Medium) #2 ea 10/31/21 [Rx Last Taken Unknown] sumatriptan succinate 100 mg tablet (Imitrex) See Rx Instructions PO .COMPLEX #14 tabs 10/31/21 [Rx Last Taken Unknown] benzonatate 100 mg capsule 200 mg PO TID PRN PRN Cough #20 CAPSULES 11/10/21 [Rx Last Taken Unknown] Allergy/AdvReac Type Severity Reaction Status Date / Time Penicillins Allergy Hives Verified 11/10/21 06:45 venom-honey bee Allergy Anaphylaxis Verified 11/10/21 06:45 [bee venom (honey bee)] Family History Other Alcoholism Anxiety Arthritis Asthma Cancer Cervical cancer Depression Diabetes Heart disease Hypertension Myocardial infarction Ovarian cancer Surgical History History of tubal ligation Hx of cholecystectomy Social History Smoking Status: Former smoker alcohol intake: current alcohol intake frequency: holidays/special occasions only substance use type: does not use what type of physical activity do you participate in: walking ROS ROS ED Constitutional Constitutional ED: Reports body ache(s), headache(s) and malaise; Denies chills or fever(s) Eyes Eyes: Denies change in vision or diplopia ENT ENT ED: Reports ear pain bilateral, nasal congestion, rhinorrhea and sore throat Cardiovascular Cardiovascular: Denies chest pain or palpitations Respiratory/Chest Respiratory/Chest: Reports cough; Denies dyspnea Gastrointestinal Gastrointestinal: Denies abdominal pain, diarrhea, nausea or vomiting Genitourinary Genitourinary ED: Denies dysuria or hematuria Musculoskeletal Musculoskeletal: Reports myalgias; Denies back pain or neck pain Integumentary Denies abscess or rash Neurologic Neurologic: Reports headache(s); Denies paresthesias or weakness Psychiatric Psychiatric: Denies anxiety or suicidal thoughts EXAM Physical Exam Const Vital Signs: 11/10/21 06:43 11/10/21 06:48 Temperature 97.5 F L Temperature Source Temporal Pulse Rate 102 H Respiratory Rate 18 Respiratory Effort Normal Non-Labored Respiratory Pattern Normal Blood Pressure 174/111 H Blood Pressure Mean 132 Pulse Ox 97 Oxygen Delivery Method Room Air Positive well nourished, well developed and obese General Appearance ED: well developed and NAD Nutritional Appearance: obese HEENT Reports moist mucous membranes HEENT Narrative: Mildly hoarse voice. Posterior oropharyngeal erythema without exudates or asymmetry. No trismus. Right TM and EAC normal. Left EAC normal, TM obscured by cerumen. normocephalic and atraumatic Eyes PERRL and EOMs intact bilaterally Neck full ROM and supple Neck Narrative: Tender submandibular but no palpable swollen lymph nodes. No posterior lymphadenopathy. No meningismus, for range of motion without difficulty. Resp normal respiratory effort and clear to auscultation bilaterally Resp Narrative: Occasional bronchitic cough but clear lungs. Cardio regular rate, regular rhythm and no murmurs Back/Spine no CVA tenderness General Back: other FROM Extremity normal to inspection General Extremety ED: Negative for edema, pulses abnormal or tenderness General Extremity: Negative for edema or pulses abnormal Neuro oriented x3, CN's II-XII intact bilaterally and no sensory deficits noted Sensorium / Orientation: awake and alert Motor Exam: strength 5/5 throughout Psych mental status grossly normal Skin no rashes or lesions noted and no wounds MDM MDM MDM Narrative Medical decision making narrative: Patient's symptoms are consistent with a viral syndrome, but given the pandemic and recent omicron variant surge, COVID, in addition to influenza which has been seen this summer, and a rapid strep were all obtained. Those were all negative. I do not think she needs PCR since she has had symptoms of this for 3 days and the rapid COVID being negative is probably accurate. Culture for strep is sent and pending. She was offered Toradol here and discharged home with instructions for supportive care I do not think she needs any other emergent testing or treatments, if she was not a diabetic I would put her on Decadron but I think that the risks of that outweigh the potential benefits since this will likely be a self-limiting illness. Discharge Plan Triage Chief Complaint: General Illness ED Provider: Daniel Melo Dx/Rx/DC Orders Clinical Impression: Viral URI with cough Instructions: ED URI, Viral, No Abx (Adult) Prescriptions: New benzonatate [benzonatate] 100 mg capsule 200 mg PO TID PRN PRN (Reason: Cough) Qty: 20 0RF No Action glimepiride 4 mg tablet 4 mg PO QAM Qty: 180 3RF Rx Instructions: administer with breakfast metformin 1,000 mg tablet 1,000 mg PO BID Qty: 180 2RF (DME) Blood Glucose Test Strip See Rx Instructions .ROUTE .MEDSUPPLY Qty: 100 3RF Rx Instructions: Check BID famotidine 20 mg tablet 20 mg PO QHS Qty: 90 2RF escitalopram oxalate [Lexapro] 5 mg tablet 5 mg PO DAILY Qty: 90 2RF fexofenadine [Najma Allergy] 60 mg tablet 60 mg PO BID Qty: 180 2RF gabapentin 100 mg capsule 100 mg PO QHS Qty: 60 3RF losartan 50 mg tablet 50 mg PO DAILY Qty: 90 1RF sumatriptan succinate [Imitrex] 100 mg tablet See Rx Instructions PO .COMPLEX Qty: 14 1RF Rx Instructions: take 1 tab at onset of headache; if no relief, may repeat 1 tab after at least 2 hrs; max = 2 tabs/24 hrs PO (DME) Wrist Brace Medium Misc See Rx Instructions .Route Qty: 2 0RF Rx Instructions: LEFT AND RIGHT WRIST SPLINT WITH THUMB IMMOBILIZER Primary Care Provider: Brett Yanez Referrals: Brett Yanez MD [Primary Care Provider] - 1 Week if not improving Activity Restrictions/Additional Instructions: Likely viral illness which will resolve on its own. Supportive care advised including Tylenol/ibuprofen/sore throat sprays as needed, and the prescribed cough suppressant which may help the symptoms some but will not cure the cough. Disposition Disposition: Home, Self Care
[2021-11-10] MEDS: Ketorolac 30 MG/ML Syringe IM (07:19)
[2021-11-10 08:17] VITALS: BP 149/99; PULSE 86; RESP 16; O2SAT 98
== END 2021-11-10 08:18 | disposition home or self-care (01) ==
PROVIDERS: Emergency Provider Emergency Medicine; PCP Internal Medicine; Visit Provider Emergency Medicine
DX: J06.9 Acute upper respiratory infection, unspecified (principal); E11.9 Type 2 diabetes mellitus without complications; R51.9 Headache, unspecified; I10 Essential (primary) hypertension; Z87.891 Personal history of nicotine dependence; R49.0 Dysphonia; R05.9 Cough, unspecified
CPT/HCPCS: 87077; 87428; 87880; 99282

== ENCOUNTER 2021-11-24 21:58 | Emergency (ER) | payer MEDICAID, SELFPAY ==
[2021-11-24 21:59] VITALS: BP 152/94; PULSE 90; RESP 18; TEMP 36.3; O2SAT 98; BMI 38.9
[2021-11-24 22:32] LABS: Bacteria 0 SEEN /hpf (None Seen); Color, Urine Straw (Yellow); Glucose, Dipstick Normal (Normal); Ketone-Dipstick Negative (Negative); Leukocyte Esterase-Dipstick 500 /ul (Negative); Mucous, Urine 0 SEEN /hpf (<or=2+); Nitrite-Dipstick Negative (Negative); Occult Blood-Urine 10 /ul (Negative); Protein-Dipstick Negative (Negative); Urine Bilirubin Dipstick Negative (Negative); Urine Clarity Clear (Clear); Urine Urobilinogen Normal (Normal); Urine pH 6.5 (5.0 - 8.0)
[2021-11-24 22:42] LABS: Internal QC Validated? YES +Cl - CLEAR BKGD; Pregnancy, Serum, hCG Quali. NEGATIVE Negative
[2021-11-24 22:52] LABS: Red Blood Cells-Urine 0-5 SEEN /hpf (0-5); Squamous Epithelial Cells - UA 0-5 SEEN /hpf (5-10); White Blood Cells 5-10 SEEN /hpf (0-5)
--- NOTE | 2021-11-25 00:18 | CT_ITS ---
EXAM: CT ABDOMEN AND PELVIS WITHOUT INTRAVENOUS CONTRAST CLINICAL INDICATION: flank pain TECHNIQUE: Helically acquired images were obtained of the abdomen and pelvis without intravenous contrast. This CT exam was performed using one or more of the following dose reduction techniques: automated exposure control, adjustment of the mA and/or kV according to patient size, and/or use of iterative reconstruction technique. This report was created using [employer] report generation technology. COMPARISON: 10/06/2021 FINDINGS: LOWER THORAX: Unremarkable. Lung bases are clear. No cardiomegaly. No significant pericardial effusion. ABDOMEN: LIVER: Mildly enlarged. Homogeneous. GALLBLADDER AND BILE DUCTS: Cholecystectomy. No intra- or extrahepatic biliary ductal dilation. PANCREAS: Unremarkable. No focal cystic mass. SPLEEN: Mildly enlarged, without focal cystic or solid mass. ADRENALS: Unremarkable. No nodules. KIDNEYS AND URETERS: Increased size of the stone in the right renal pelvis now measuring up to 2 cm with mild pelviectasis. Multiple small nonobstructing stone fragments in the right renal collecting system. Normal renal size and position. STOMACH AND BOWEL: Unremarkable. No stomach or bowel distention. No focal inflammatory change. PELVIS: APPENDIX: The appendix is normal. BLADDER: Unremarkable. REPRODUCTIVE: Unremarkable as visualized. No mass. ABDOMEN and PELVIS: INTRAPERITONEAL SPACE: Unremarkable. No ascites or other fluid collection. No free air. BONES/JOINTS: Unremarkable. No suspicious lytic or blastic abnormality. SOFT TISSUES: Unremarkable. No discrete abdominal or pelvic wall hernia. VASCULATURE: Unremarkable. Abdominal aorta is non-dilated. LYMPH NODES: Unremarkable. No enlarged lymph nodes. CT/Abdomen/Pelvis without Cont IMPRESSION: Increased size of the stone in the right renal pelvis now measuring up to 2 cm with mild pelviectasis. Electronically Signed: Bishop Valdes MD at 1:12 EDT ,
--- NOTE | 2021-11-25 00:19 | EDS_ITS ---
HPI History of Present Illness Chief Complaint: Flank Pain Informant: patient Narrative Narrative: Patient presents with pain in the right posterior lateral flank. She states she thinks there is a little pressure upfront but is mostly in the flank. Its aching and sharp. It is worse with motion. No trouble breathing or coughing. No dark or bloody urine. No syncope or presyncope. Patient does report a history of a 1.3 cm stone on that side. She has had ki dney stones before. Her symptoms are somewhat like stones. Patient also fell this evening. She fell about an hour to hour and a half before the pain. She was having soreness afterwards but not pain. She was in the tub. She put her leg up on the edge to dry off and she slipped when she leaned forward. This was a mechanical fall. She did land on her right side. She has no numbness tingling weakness. [facility] Medical History Anxiety Anxiety and depression Bilateral carpal tunnel syndrome Bipolar disorder Chronic low back pain Degenerative arthritis Depression Diabetes Ectopic Former smoker Gallbladder calculus with acute cholecystitis Hypertension Open wound of both lower extremities Osteoarthritis Paresthesia of upper extremity PTSD (post-traumatic stress disorder) Pyelonephritis Renal stones Sleep apnea Smoker Type 2 diabetes mellitus Urticaria Home Medications glimepiride 4 mg tablet 4 mg PO QAM #180 tabs 07/15/21 [Rx Last Taken Unknown] metformin 1,000 mg tablet 1,000 mg PO BID #180 tabs 07/15/21 [Rx Last Taken Unknown] blood sugar diagnostic (Blood Glucose Test strips) #100 ea 08/14/21 [Rx Last Taken Unknown] escitalopram oxalate 5 mg tablet (Lexapro) 5 mg PO DAILY #90 tabs 10/14/21 [Rx Last Taken Unknown] famotidine 20 mg tablet 20 mg PO QHS #90 tabs 10/14/21 [Rx Last Taken Unknown] fexofenadine 60 mg tablet (Najma Allergy) 60 mg PO BID #180 tabs 10/14/21 [Rx Last Taken Unknown] gabapentin 100 mg capsule 100 mg PO QHS #60 caps 10/14/21 [Rx Last Taken Unknown] arm brace (Wrist Brace Medium) #2 ea 10/31/21 [Rx Last Taken Unknown] sumatriptan succinate 100 mg tablet (Imitrex) See Rx Instructions PO .COMPLEX #14 tabs 10/31/21 [Rx Last Taken Unknown] losartan 50 mg tablet 50 mg PO QHS 11/25/21 [History Last Taken Unknown] tramadol 50 mg tablet 50 mg PO Q8H PRN pain 3 days #10 tabs 11/25/21 [Rx Last Taken Unknown] Allergy/AdvReac Type Severity Reaction Status Date / Time Penicillins Allergy Hives Verified 11/24/21 21:59 venom-honey bee Allergy Anaphylaxis Verified 11/24/21 21:59 [bee venom (honey bee)] Family History Other Alcoholism Anxiety Arthritis Asthma Cancer Cervical cancer Depression Diabetes Heart disease Hypertension Myocardial infarction Ovarian cancer Surgical History History of tubal ligation Hx of cholecystectomy Social History Smoking Status: Former smoker alcohol intake: current alcohol intake frequency: holidays/special occasions only substance use type: does not use what type of physical activity do you participate in: walking ROS ROS ED Constitutional Constitutional ED: Denies fever(s) Eyes Eyes: Denies change in vision ENT ENT ED: Denies rhinorrhea or sore throat Cardiovascular Cardiovascular: Denies chest pain, palpitations or racing heartbeat Respiratory/Chest Respiratory/Chest: Denies cough, dyspnea or sputum Gastrointestinal Gastrointestinal: Reports other Details: Mild sense of pressure nonspecifically in the anterior right abdomen. ; Denies constipation, nausea or vomiting Genitourinary Genitourinary ED: Denies dysuria or hematuria Musculoskeletal Musculoskeletal: Reports back pain and other Details: Right flank area pain. Integumentary Denies Abrasions or rash Neurologic Neurologic: Denies paresthesias or weakness Endocrine Endocrinology: Denies polydipsia or polyuria Hematologic/Lymphatic Hematologic/Lymphatic: Denies easy bleeding or easy bruising Allergic/Immunologic Allergic/Immunologic ED: Denies urticaria EXAM Physical Exam Const Vital Signs: 11/24/21 21:59 11/24/21 23:59 Temperature 97.3 F L Temperature Source Temporal Pulse Rate 90 Respiratory Rate 18 Respiratory Pattern Normal Blood Pressure 152/94 H Blood Pressure Mean 113 Pulse Ox 98 Oxygen Delivery Method Room Air Positive well nourished, well developed and obese General Appearance ED: well developed and NAD; Negative for cyanotic or diaphoretic Nutritional Appearance: obese HEENT Reports moist mucous membranes Negative for trauma Eyes EOMs intact bilaterally Neck General: Negative for tenderness Chest Wall inspection of chest normal and palpation of chest normal Chest Narrative: No chest or rib area tenderness. No subcu air. No pain with a deep breath. Lungs are clear. Resp normal respiratory effort and clear to auscultation bilaterally Effort and Inspection: Negative for pain with movement Auscultation: Negative for rales, rhonchi or wheezes Cardio regular rate, regular rhythm and no murmurs GI normal to inspection, nondistended, normoactive bowel sounds and non-tender GI Narrative: Patient describes a pressure feeling in the anterior abdomen but her exam is completely benign. Back/Spine Back/Spine Narrative: Patient does have some tenderness but even with soft palpation toward the right CVA. I do not see any bruising or abrasions yet developed. No spinal tenderness. Extremity normal to inspection General Extremety ED: Negative for tenderness Neuro Sensorium / Orientation: alert Psych mental status grossly normal Skin no rashes or lesions noted and no wounds Lesions: No lesion noted Rashes: No rashes noted MDM MDM MDM Narrative Medical decision making narrative: CBC shows normal white count hemoglobin and platelets. Electrolytes are overall unremarkable. Creatinine is normal. LFTs are also normal. Glucose is actually pretty well controlled at 119. Urine shows 5-10 white cells but she has no dysuria. There are some leukocyte Estrace but no nitrites. is negative. CT scan shows interval increase in the size of her right renal stone. There is mild pelviectasis. I think her symptoms are mostly from the fall though. She has pain with range of motion and light touch in the paraspinals. This is more consistent with muscular. She does need to follow-up with urologist though. The stone is enlarging and at most some point be causing issues. Lab Data Labs: Laboratory Results - last 24 hr 11/24/21 11/24/21 11/24/21 20:20 20:20 22:05 WBC 7.7 RBC 4.49 Hgb 13.1 Hct 40.5 MCV 90.2 MCH 29.2 MCHC 32.3 RDW Std Deviation 40.3 RDW Coeff of Johnnie 12.2 Plt Count 233 MPV 12.4 H Immature Gran % (Auto) 0.400 Neut % (Auto) 51.7 Lymph % (Auto) 33.6 [place] % (Auto) 6.9 Eos % (Auto) 6.4 H Baso % (Auto) 1.0 Absolute Neuts (auto) 4.0 Absolute Lymphs (auto) 2.57 Nucleated RBC % 0 Sodium 140 Potassium 3.9 Chloride 105 Carbon Dioxide 29.0 Anion Gap 6 BUN 10 Creatinine 0.82 Estim Creat Clear Calc 69.24 Est GFR (MDRD) Af Amer 98 Est GFR (MDRD) Non-Af 81 BUN/Creatinine Ratio 12.3 Glucose 119 H Calcium 9.4 Total Bilirubin 0.20 AST 15 ALT 24 Alkaline Phosphatase 77 Total Protein 7.3 Albumin 3.3 Globulin 4.0 Albumin/Globulin Ratio 0.8 L Serum , Qual Urine Color Straw Urine Clarity Clear Urine pH 6.5 Ur Specific [place] 1.010 Urine Protein Negative Urine Glucose (UA) Normal Urine Ketones Negative Urine Occult Blood 10 H Urine Nitrite Negative Urine Bilirubin Negative Urine Urobilinogen Normal Ur Leukocyte Esterase 500 H Urine RBC 0-5 SEEN Urine WBC 5-10 SEEN Ur Squamous Epith Cells 0-5 SEEN Urine Bacteria 0 SEEN Urine Mucus 0 SEEN 11/24/21 22:20 WBC RBC Hgb Hct MCV MCH MCHC RDW Std Deviation RDW Coeff of Johnnie Plt Count MPV Immature Gran % (Auto) Neut % (Auto) Lymph % (Auto) [place] % (Auto) Eos % (Auto) Baso % (Auto) Absolute Neuts (auto) Absolute Lymphs (auto) Nucleated RBC % Sodium Potassium Chloride Carbon Dioxide Anion Gap BUN Creatinine Estim Creat Clear Calc Est GFR (MDRD) Af Amer Est GFR (MDRD) Non-Af BUN/Creatinine Ratio Glucose Calcium Total Bilirubin AST ALT Alkaline Phosphatase Total Protein Albumin Globulin Albumin/Globulin Ratio Serum , Qual NEGATIVE Urine Color Urine Clarity Urine pH Ur Specific [place] Urine Protein Urine Glucose (UA) Urine Ketones Urine Occult Blood Urine Nitrite Urine Bilirubin Urine Urobilinogen Ur Leukocyte Esterase Urine RBC Urine WBC Ur Squamous Epith Cells Urine Bacteria Urine Mucus Radiography Diagnostic Testing: Clinical Impression(s) from Imaging Studies Abdomen/Pelvis CT 11/25/21 00:18 IMPRESSION: Increased size of the stone in the right renal pelvis now measuring up to 2 cm with mild pelviectasis. Electronically Signed: Bishop Valdes MD at 1:12 EDT , X-ray looked at by me and read by radiology shows increased size of the stone in the right renal pelvis with mild pelviectasis. Discharge Plan Triage Chief Complaint: Flank Pain ED Provider: Vitor Davis Dx/Rx/DC Orders Clinical Impression: Fall in bathtub, Lumbar contusion Instructions: ED Soft Tissue Contusion, ED Kidney Stone Undescended No ... Prescriptions: New tramadol 50 mg tablet 50 mg PO Q8H PRN (Reason: pain) 3 Days Qty: 10 0RF No Action glimepiride 4 mg tablet 4 mg PO QAM Qty: 180 3RF Rx Instructions: administer with breakfast metformin 1,000 mg tablet 1,000 mg PO BID Qty: 180 2RF (DME) Blood Glucose Test Strip See Rx Instructions .ROUTE .MEDSUPPLY Qty: 100 3RF Rx Instructions: Check BID famotidine 20 mg tablet 20 mg PO QHS Qty: 90 2RF escitalopram oxalate [Lexapro] 5 mg tablet 5 mg PO DAILY Qty: 90 2RF fexofenadine [Najma Allergy] 60 mg tablet 60 mg PO BID Qty: 180 2RF gabapentin 100 mg capsule 100 mg PO QHS Qty: 60 3RF sumatriptan succinate [Imitrex] 100 mg tablet See Rx Instructions PO .COMPLEX Qty: 14 1RF Rx Instructions: take 1 tab at onset of headache; if no relief, may repeat 1 tab after at least 2 hrs; max = 2 tabs/24 hrs PO (DME) Wrist Brace Medium Misc See Rx Instructions .Route Qty: 2 0RF Rx Instructions: LEFT AND RIGHT WRIST SPLINT WITH THUMB IMMOBILIZER losartan 50 mg tablet 50 mg PO QHS Primary Care Provider: Brett Yanez Referrals: Brett Yanez MD [Primary Care Provider] - 3-5 Days if not improving Halima Kyle MD [Med Staff - Active Staff] - As soon as possible Disposition Disposition: Home, Self Care
[2021-11-25] MEDS: Morphine 4 MG/ML Syringe IV (00:22)
[2021-11-25] MEDS: Ondansetron 4 MG/2 ML Vial IV (00:22)
[2021-11-25 00:27] LABS: Absolute Lymphocyte Count 2.57 X10^3/uL (0.83-4.51); Basophil# 0.08 X10^3/uL; Eosinophil# 0.49 X10^3/uL; Eosinophils% 6.4 % (0-5); Hematocrit 40.5 % (37-47); Hemoglobin 13.1 g/dL (12.0-15.0); Lymphocyte # 2.57 X10^3/ul (0.83-4.51); Lymphocyte % 33.6 % (19-41); Mean Corp Hgb Conc 32.3 g/dL (32-36); Mean Corpuscular Hgb 29.2 pg (27.0-32.0); Mean Corpuscular Volume 90.2 fL (81-99); Mean Platelet Vol. 12.4 fl (6.2-12.0); Monocyte# 0.53 X10^3/uL; Monocyte% 6.9 % (0-10); NRBC Flagged by Analyzer 0 % (0-5); Neutrophil # 3.96 X10^3/uL (2.7-7.7); Neutrophil % 51.7 % (47-70); Platelet Count 233 K/mm3 (150-450); RBC Distribution Width CV 12.2 % (11.6-14.6); RBC Distribution Width SD 40.3 fl (35.1-43.9); Red Blood Count 4.49 M/mm3 (4.2-5.4); White Blood Count 7.7 K/mm3 (4.4-11.0)
[2021-11-25 00:45] LABS: ALB/GLOB Ratio 0.8 RATIO (0.9-2.4); AST(SGOT) 15 U/L (15-37); Alanine Aminotransfer ALT/SGPT 24 U/L (13-56); Albumin, Serum 3.3 g/dL (3.2-5.0); Alkaline Phosphatase 77 U/L (45-117); Anion Gap 6 (5-15); BUN 10 mg/dL (7-18); BUN/Creat Ratio 12.3 RATIO (10-20); Calcium,Total 9.4 mg/dL (8.5-10.1); Chloride 105 mmol/L (98-107); Creatinine, Serum 0.82 mg/dL (0.55-1.02); EST Glomerular Filtration Rate 81 mL/min (>60); Est Glom Filt Rate - Afr Amer 98 mL/min (>60); Estimated Creatinine Clearance 69.24 ml/min; Glucose 119 mg/dL (74-106); Potassium 3.9 mmol/L (3.5-5.1); Protein, Total 7.3 g/dL (6.4-8.2); Sodium Level 140 mmol/L (136-145)
== END 2021-11-25 01:38 | disposition home or self-care (01) ==
PROVIDERS: Emergency Provider Emergency Medicine; PCP Internal Medicine; Visit Provider Emergency Medicine
DX: S30.0XXA Contusion of lower back and pelvis, initial encounter (principal); E11.9 Type 2 diabetes mellitus without complications; W01.0XXA Fall on same level from slipping, tripping and stumbling without subsequent striking against object, initial encounter; Z87.891 Personal history of nicotine dependence; I10 Essential (primary) hypertension; Z87.442 Personal history of urinary calculi
CPT/HCPCS: 74176; 80053; 81001; 84703; 85025; 99283; A4216; J2405

== ENCOUNTER 2022-01-10 17:36 | Inpatient (IN) | payer MEDICAID, SELFPAY ==
[2022-01-10 17:37] VITALS: BP 164/101; PULSE 96; RESP 16; TEMP 36.4; O2SAT 98; BMI 39.6
--- NOTE | 2022-01-10 18:18 | ED.VIS.FEGU ---
HPI <BRIGETTE Gonzalez - Last Filed: 01/10/22 22:07> HPI - Female History of Present Illness Chief Complaint: Flank Pain Narrative Narrative: Patient presents with severe and constant right-sided flank pain that radiates into the abdomen. She was diagnosed with a 12.2 mm renal calculi on 10/06/2021. She was sent to [facility] and states she was there for a week and states, they did absolutely nothing for me besides give me pain medications and antibiotics. She then returned here to the ED on 10/21 for right-sided flank pain where lumbar spine x-ray showed a sided 2 cm calculi on the R side however, she left AMA that day. Patient then returned on 11/25 with right-sided flank pain where CT of the abdomen showed a 2 cm renal calculi in the R renal pelvis. She admits to dysuria and urinary frequency. She denies fever, chills, diarrhea, vomiting, and hematuria. [facility] <BRIGETTE Gonzalez - Last Filed: 01/10/22 22:07> [facility] Medical History Anxiety Anxiety and depression Bilateral carpal tunnel syndrome Bipolar disorder Chronic low back pain Degenerative arthritis Depression Diabetes Ectopic Former smoker Gallbladder calculus with acute cholecystitis Hypertension Open wound of both lower extremities Osteoarthritis Paresthesia of upper extremity PTSD (post-traumatic stress disorder) Pyelonephritis Renal stones Sleep apnea Smoker Type 2 diabetes mellitus Urticaria Home Medications glimepiride 4 mg tablet 4 mg PO QAM #180 tabs 07/15/21 [Rx Last Taken Unknown] metformin 1,000 mg tablet 1,000 mg PO BID #180 tabs 07/15/21 [Rx Last Taken Unknown] blood sugar diagnostic (Blood Glucose Test strips) #100 ea 08/14/21 [Rx Last Taken Unknown] escitalopram oxalate 5 mg tablet (Lexapro) 5 mg PO DAILY #90 tabs 10/14/21 [Rx Last Taken Unknown] famotidine 20 mg tablet 20 mg PO QHS #90 tabs 10/14/21 [Rx Last Taken Unknown] fexofenadine 60 mg tablet (Najma Allergy) 60 mg PO BID #180 tabs 10/14/21 [Rx Last Taken Unknown] gabapentin 100 mg capsule 100 mg PO QHS #60 caps 10/14/21 [Rx Last Taken Unknown] arm brace (Wrist Brace Medium) #2 ea 10/31/21 [Rx Last Taken Unknown] sumatriptan succinate 100 mg tablet (Imitrex) See Rx Instructions PO .COMPLEX #14 tabs 10/31/21 [Rx Last Taken Unknown] losartan 50 mg tablet 50 mg PO QHS 11/25/21 [History Last Taken Unknown] tramadol 50 mg tablet 50 mg PO Q8H PRN pain 3 days #10 tabs 11/25/21 [Rx Last Taken Unknown] Allergy/AdvReac Type Severity Reaction Status Date / Time Penicillins Allergy Hives Verified 01/10/22 17:37 venom-honey bee Allergy Anaphylaxis Verified 01/10/22 17:37 [bee venom (honey bee)] Family History Other Alcoholism Anxiety Arthritis Asthma Cancer Cervical cancer Depression Diabetes Heart disease Hypertension Myocardial infarction Ovarian cancer Surgical History History of tubal ligation Hx of cholecystectomy Social History Smoking Status: Former smoker alcohol intake: current alcohol intake frequency: holidays/special occasions only substance use type: does not use what type of physical activity do you participate in: walking ROS <BRIGETTE Gonzalez - Last Filed: 01/10/22 22:07> ROS ED Constitutional Constitutional ED: Denies chills, fever(s) or sweats Eyes Eyes: Denies blurry vision or change in vision ENT ENT ED: Denies rhinorrhea or sore throat Cardiovascular Cardiovascular: Denies chest pain or palpitations Respiratory/Chest Respiratory/Chest: Denies cough, dyspnea or dyspnea on exertion Gastrointestinal Gastrointestinal: Reports abdominal pain; Denies diarrhea, nausea or vomiting Genitourinary Genitourinary ED: Reports dysuria, flank pain and urinary frequency; Denies hematuria Musculoskeletal Musculoskeletal: Denies arthralgias, myalgias or neck pain Integumentary Denies Abrasions or rash Neurologic Neurologic: Denies headache(s), paresthesias or weakness EXAM <BRIGETTE Gonzalez - Last Filed: 01/10/22 22:07> Physical Exam Const Vital Signs: 01/10/22 17:37 01/10/22 19:46 Temperature 97.5 F L Temperature Source Temporal Pulse Rate 96 89 Respiratory Rate 16 18 Blood Pressure 164/101 H 141/90 H Blood Pressure Mean 122 107 Pulse Ox 98 97 Oxygen Delivery Method Room Air Room Air Positive obese Constitutional Narrative: Patient appears to be uncomfortable and in a lot of pain while lying in the bed. Nutritional Appearance: obese HEENT Reports moist mucous membranes Negative for trauma Eyes PERRL and EOMs intact bilaterally Neck supple Chest Wall inspection of chest normal Resp normal respiratory effort and clear to auscultation bilaterally Effort and Inspection: Negative for pain with movement Auscultation: Negative for rales, rhonchi, wheezes or diminished lung sounds Cardio regular rate, regular rhythm and no murmurs GI normal to inspection, nondistended, normoactive bowel sounds, soft to palpation and non-tender Palpation: Negative for hepatomegaly or splenomegaly Back/Spine General Back: CVA tenderness right Extremity normal to inspection and full ROM General Extremety ED: Negative for edema or tenderness General Extremity: Negative for edema Neuro oriented x3 and no sensory deficits noted Sensorium / Orientation: alert and oriented to place Motor Exam: strength 5/5 throughout Psych mental status grossly normal Skin no rashes or lesions noted and no wounds <Dr. Javed Alvarado MD - Last Filed: 01/10/22 19:48> Physical Exam Const Vital Signs: 01/10/22 17:37 01/10/22 19:46 Temperature 97.5 F L Temperature Source Temporal Pulse Rate 96 89 Respiratory Rate 16 18 Blood Pressure 164/101 H 141/90 H Blood Pressure Mean 122 107 Pulse Ox 98 97 Oxygen Delivery Method Room Air Room Air MDM <BRIGETTE Gonzalez - Last Filed: 01/10/22 22:07> [facility] MDM Narrative Medical decision making narrative: I have personally performed a face to face assessment of the patient and have reviewed the ARACELI Note. I performed a substantive portion of the visit including all aspects of the following. My schneider findings include: History is [evaluating this patient with our physician offset press assistant. 46-year-old female right flank pain. History of renal pelvis calculi. Was treated at [facility] but had no procedures done. Complaining of recurrent pain.] Exam is [middle-aged female no acute distress. Vital signs stable afebrile. Lungs are clear. Heart regular rhythm. Abdomen soft nontender. Mild right CVA tenderness. Moving all 4 extremities. No edema. Neurologically she is awake and alert. Does not look septic or toxic. Does not look dehydrated.] Medical Decision Making [patient may or may not have a UTI. Contaminated specimen. She will be given IV Rocephin. Urologist on page.] Other additions or changes: [None] Patient was given the option to discharge home on pain control and states she is in too much pain to go home. She states she also has a lack of reliable transportation and a lack of reliable housing and fears she would not be able to make it back here if she needed to. Waiting on urine culture. Lab Data Labs: Laboratory Results - last 24 hr 01/10/22 01/10/22 01/10/22 17:55 17:55 17:55 WBC 8.3 RBC 4.63 Hgb 13.5 Hct 41.6 MCV 89.8 MCH 29.2 MCHC 32.5 RDW Std Deviation 45.3 H RDW Coeff of Johnnie 13.8 Plt Count 278 MPV 11.2 Immature Gran % (Auto) 0.500 Neut % (Auto) 65.9 Lymph % (Auto) 22.3 [place] % (Auto) 6.6 Eos % (Auto) 4.0 Baso % (Auto) 0.7 Absolute Neuts (auto) 5.5 Absolute Lymphs (auto) 1.86 Nucleated RBC % 0 Sodium 138 Potassium 3.8 Chloride 102 Carbon Dioxide 28.0 Anion Gap 8 BUN 14 Creatinine 0.90 Estim Creat Clear Calc 63.09 Est GFR (MDRD) Af Amer 88 Est GFR (MDRD) Non-Af 73 BUN/Creatinine Ratio 15.6 Glucose 159 H Calcium 10.3 H Serum , Qual NEGATIVE Urine Color Urine Clarity Urine pH Ur Specific Valentine Urine Protein Urine Glucose (UA) Urine Ketones Urine Occult Blood Urine Nitrite Urine Bilirubin Urine Urobilinogen Ur Leukocyte Esterase Urine RBC Urine WBC Ur Squamous Epith Cells Calcium Oxalate Crystal Urine Bacteria Urine Mucus Urine Trichomonas POC Glucose 01/10/22 01/10/22 18:50 20:51 WBC RBC Hgb Hct MCV MCH MCHC RDW Std Deviation RDW Coeff of Johnnie Plt Count MPV Immature Gran % (Auto) Neut % (Auto) Lymph % (Auto) [place] % (Auto) Eos % (Auto) Baso % (Auto) Absolute Neuts (auto) Absolute Lymphs (auto) Nucleated RBC % Sodium Potassium Chloride Carbon Dioxide Anion Gap BUN Creatinine Estim Creat Clear Calc Est GFR (MDRD) Af Amer Est GFR (MDRD) Non-Af BUN/Creatinine Ratio Glucose Calcium Serum , Qual Urine Color Yellow Urine Clarity Sl. Cloudy Urine pH 6.5 Ur Specific Valentine 1.015 Urine Protein 15 H Urine Glucose (UA) Normal Urine Ketones Negative Urine Occult Blood 25 H Urine Nitrite Positive H Urine Bilirubin Negative Urine Urobilinogen 1 H Ur Leukocyte Esterase 500 H Urine RBC 0-5 SEEN Urine WBC 25-50 SEEN Ur Squamous Epith Cells 50-100 SEEN Calcium Oxalate Crystal RARE Urine Bacteria 0 SEEN Urine Mucus 0 SEEN Urine Trichomonas 0-5 SEEN POC Glucose 95 <Dr. Javed Alvarado MD - Last Filed: 01/10/22 19:48> MDM MDM Narrative Medical decision making narrative: I have personally performed a face to face assessment of the patient and have reviewed the ARACELI Note. I performed a substantive portion of the visit including all aspects of the following. My schenider findings include: History is [evaluating this patient with our physician offset press assistant. 46-year-old female right flank pain. History of renal pelvis calculi. Was treated at [facility] but had no procedures done. Complaining of recurrent pain.] Exam is [middle-aged female no acute distress. Vital signs stable afebrile. Lungs are clear. Heart regular rhythm. Abdomen soft nontender. Mild right CVA tenderness. Moving all 4 extremities. No edema. Neurologically she is awake and alert. Does not look septic or toxic. Does not look dehydrated.] Medical Decision Making [patient may or may not have a UTI. Contaminated specimen. She will be given IV Rocephin. Urologist on page.] Other additions or changes: [None] Lab Data Attestation: I reviewed the patient's lab results. Lab results narrative: CBC unremarkable. White count 8.3. H&H of 13 and 41. Chemistries unremarkable gap of 8. BUN of 14 creatinine 0.9. Prior CAT scan shows a 2 cm right renal pelvis calculi. Urinalysis is consistent with infection with positive nitrates white and red cells. No bacteria. Is a contaminated specimen with epithelial cells. A culture was sent. Labs: Laboratory Results - last 24 hr 11/05/22 11/05/22 11/05/22 17:55 17:55 17:55 WBC 8.3 RBC 4.63 Hgb 13.5 Hct 41.6 MCV 89.8 MCH 29.2 MCHC 32.5 RDW Std Deviation 45.3 H RDW Coeff of Johnnie 13.8 Plt Count 278 MPV 11.2 Immature Gran % (Auto) 0.500 Neut % (Auto) 65.9 Lymph % (Auto) 22.3 [place] % (Auto) 6.6 Eos % (Auto) 4.0 Baso % (Auto) 0.7 Absolute Neuts (auto) 5.5 Absolute Lymphs (auto) 1.86 Nucleated RBC % 0 Sodium 138 Potassium 3.8 Chloride 102 Carbon Dioxide 28.0 Anion Gap 8 BUN 14 Creatinine 0.90 Estim Creat Clear Calc 63.09 Est GFR (MDRD) Af Amer 88 Est GFR (MDRD) Non-Af 73 BUN/Creatinine Ratio 15.6 Glucose 159 H Calcium 10.3 H Serum , Qual NEGATIVE Urine Color Urine Clarity Urine pH Ur Specific Valentine Urine Protein Urine Glucose (UA) Urine Ketones Urine Occult Blood Urine Nitrite Urine Bilirubin Urine Urobilinogen Ur Leukocyte Esterase Urine RBC Urine WBC Ur Squamous Epith Cells Calcium Oxalate Crystal Urine Bacteria Urine Mucus Urine Trichomonas POC Glucose 01/10/22 01/10/22 18:50 20:51 WBC RBC Hgb Hct MCV MCH MCHC RDW Std Deviation RDW Coeff of Johnnie Plt Count MPV Immature Gran % (Auto) Neut % (Auto) Lymph % (Auto) [place] % (Auto) Eos % (Auto) Baso % (Auto) Absolute Neuts (auto) Absolute Lymphs (auto) Nucleated RBC % Sodium Potassium Chloride Carbon Dioxide Anion Gap BUN Creatinine Estim Creat Clear Calc Est GFR (MDRD) Af Amer Est GFR (MDRD) Non-Af BUN/Creatinine Ratio Glucose Calcium Serum , Qual Urine Color Yellow Urine Clarity Sl. Cloudy Urine pH 6.5 Ur Specific Valentine 1.015 Urine Protein 15 H Urine Glucose (UA) Normal Urine Ketones Negative Urine Occult Blood 25 H Urine Nitrite Positive H Urine Bilirubin Negative Urine Urobilinogen 1 H Ur Leukocyte Esterase 500 H Urine RBC 0-5 SEEN Urine WBC 25-50 SEEN Ur Squamous Epith Cells 50-100 SEEN Calcium Oxalate Crystal RARE Urine Bacteria 0 SEEN Urine Mucus 0 SEEN Urine Trichomonas 0-5 SEEN POC Glucose 95 Discharge Plan Dx/Rx/DC Orders Clinical Impression: UTI (urinary tract infection), Intractable pain, Right kidney stone Disposition Disposition: Acute Care Hospital [facility]
[2022-01-10 18:54] LABS: Absolute Lymphocyte Count 1.86 X10^3/uL (0.83-4.51); Absolute Neutrophil Count 5.5 X10^3/uL (2.0-7.7); Basophil# 0.06 X10^3/uL; Basophil% 0.7 % (0-1); Eosinophil# 0.33 X10^3/uL; Hematocrit 41.6 % (37-47); Hemoglobin 13.5 g/dL (12.0-15.0); Lymphocyte # 1.86 X10^3/ul (0.83-4.51); Lymphocyte % 22.3 % (19-41); Mean Corp Hgb Conc 32.5 g/dL (32-36); Mean Corpuscular Hgb 29.2 pg (27.0-32.0); Mean Corpuscular Volume 89.8 fL (81-99); Mean Platelet Vol. 11.2 fl (6.2-12.0); Monocyte# 0.55 X10^3/uL; Monocyte% 6.6 % (0-10); NRBC Flagged by Analyzer 0 % (0-5); Neutrophil % 65.9 % (47-70); Platelet Count 278 K/mm3 (150-450); RBC Distribution Width CV 13.8 % (11.6-14.6); RBC Distribution Width SD 45.3 fl (35.1-43.9); Red Blood Count 4.63 M/mm3 (4.2-5.4); White Blood Count 8.3 K/mm3 (4.4-11.0)
[2022-01-10 18:57] LABS: Bacteria 0 SEEN /hpf (None Seen); Mucous, Urine 0 SEEN /hpf (<or=2+)
[2022-01-10] MEDS: Ondansetron 4 MG/2 ML Vial IV (18:57)
[2022-01-10] MEDS: HYDROmorphone 1 MG/ML Syringe IV (18:58)
[2022-01-10] MEDS: Ketorolac 30 MG/ML Syringe IV (18:59)
[2022-01-10 19:04] LABS: Internal QC Validated? YES +Cl - CLEAR BKGD; Pregnancy, Serum, hCG Quali. NEGATIVE Negative
[2022-01-10 19:05] LABS: Color, Urine Yellow (Yellow); Glucose, Dipstick Normal (Normal); Ketone-Dipstick Negative (Negative); Leukocyte Esterase-Dipstick 500 /ul (Negative); Nitrite-Dipstick Positive (Negative); Occult Blood-Urine 25 /ul (Negative); Protein-Dipstick 15 mg/dl (Negative); Specific Gravity, Urine 1.015 (1.002-1.030); Urine Bilirubin Dipstick Negative (Negative); Urine Clarity Sl. Cloudy (Clear); Urine Urobilinogen 1 mg/dl (Normal); Urine pH 6.5 (5.0 - 8.0)
[2022-01-10 19:08] LABS: Anion Gap 8 (5-15); BUN 14 mg/dL (7-18); BUN/Creat Ratio 15.6 RATIO (10-20); Calcium,Total 10.3 mg/dL (8.5-10.1); Chloride 102 mmol/L (98-107); EST Glomerular Filtration Rate 73 mL/min (>60); Est Glom Filt Rate - Afr Amer 88 mL/min (>60); Estimated Creatinine Clearance 63.09 ml/min; Glucose 159 mg/dL (74-106); Potassium 3.8 mmol/L (3.5-5.1); Sodium Level 138 mmol/L (136-145)
[2022-01-10 19:10] LABS: Calcium Oxalate Crystals Ur RARE /hpf (<or=2+); Red Blood Cells-Urine 0-5 SEEN /hpf (0-5); Squamous Epithelial Cells - UA 50-100 SEEN /hpf (5-10); Trichomonas 0-5 SEEN /hpf (None Seen); White Blood Cells 25-50 SEEN /hpf (0-5)
[2022-01-10] MEDS: Ceftriaxone 1 GM/50 ML BAG IV (19:43)
[2022-01-10 19:46] VITALS: BP 141/90; PULSE 89; RESP 18; O2SAT 97
--- NOTE | 2022-01-10 20:16 | CT_ITS ---
INDICATION: R flank pain EXAMINATION: CT ABDOMEN AND PELVIS WITHOUT CONTRAST - CT Abdomen And Pelvis W/O Contrast Injection TECHNIQUE: Helically acquired images were obtained of the abdomen and pelvis without oral or IV contrast. A radiation dose optimization technique was used for this scan. IV Contrast dosage and agent: None. Oral contrast: None. COMPARISON: 11/25/2021 CT abdomen and pelvis. FINDINGS: LOWER CHEST: Mild dependent atelectasis. No cardiomegaly or pericardial effusion. No hiatal hernia. LIVER: Homogeneous. No focal mass. GALLBLADDER AND BILIARY TREE: Surgical clips in the gallbladder fossa consistent with cholecystectomy. no intra- or extrahepatic biliary ductal dilation. PANCREAS: No focal cystic or solid mass. Splenule anterior to the spleen noted. SPLEEN: Normal size without focal cystic or solid mass. ADRENAL GLANDS: No nodules. KIDNEYS, URETERS and BLADDER: Normal renal size and position. No mass. 14 x 24 mm right ureteropelvic junction stone, unchanged. 5 mm right proximal ureteral stone is new. Resulting hydronephrosis associated with this stone is also new. Previously seen small stones inferior pole right kidney are no longer visible. Persistent 5 mm and 3 mm stone right kidney, upper pole. Bladder is unremarkable. PERITONEUM: No ascites or free air. No other fluid collection. BOWEL: Normal appendix. No abnormally distended bowel loops or air fluid levels. No wall thickening or mass. No focal inflammatory changes. LYMPH NODES: No enlarged mesenteric or retroperitoneal lymph nodes. VESSELS: Aorta is non-dilated. REPRODUCTIVE ORGANS: Normal appearance of uterus and ovaries. There is a metallic density suggesting fallopian tube clip adjacent to the left uterine cornua. Second metallic density seen in the pelvis may represent a displaced fallopian tube clip. ABDOMINAL WALL: No discrete abdominal or pelvic wall hernia. BONES: No lytic or blastic abnormality. Moderate facet arthropathy L4-5 and L5-S1 levels. Os acetabulum on the left. CT/Abdomen/Pelvis without Cont IMPRESSION: 5 mm renal stone previously seen in the inferior pole right kidney is now in the proximal right ureter and resulting in moderate hydronephrosis. Other right-sided stones including a large proximal ureteropelvic junction stone are unchanged. Potential displaced right fallopian sterilization clips. Correlate clinically for a history of sterilization clip placement. Electronically Signed: Ben Kemp DO at 22:20 EDT ,
[2022-01-10 21:11] LABS: Bedside Glucose 95 mg/dL (74-106)
[2022-01-10 22:27] VITALS: BP 148/96; PULSE 91; RESP 15; TEMP 36.9; O2SAT 97
[2022-01-10 23:20] VITALS: BP 124/85; PULSE 73; RESP 16; TEMP 36.6; O2SAT 97
[2022-01-10 23:21] VITALS: BMI 39.8
[2022-01-11] VITALS (9 sets, daily range): BP systolic 103–152; BP diastolic 74–90; PULSE 65–78; RESP 14–18; TEMP 36.4–36.6; O2SAT 94–97
[2022-01-11 01:15] LABS: Bedside Glucose 162 mg/dL (74-106)
[2022-01-11] MEDS: 0.9% Saline Lock 10 ML Syringe IV ×2 (01:42→20:24)
[2022-01-11] MEDS: Ketorolac 30 MG/ML Syringe IV ×3 (01:42→20:23)
[2022-01-11] MEDS: Dext 5%-0.45% NS 1,000 ML 100 ML IV ×3 (01:47→21:26)
[2022-01-11] MEDS: Gabapentin 100 MG Capsule PO ×2 (01:56→21:26)
[2022-01-11] MEDS: Famotidine 20 MG Tablet PO ×2 (01:58→21:36)
[2022-01-11] MEDS: Losartan Potassium 50 MG Tablet PO ×2 (01:59→21:35)
[2022-01-11 07:41] LABS: Bedside Glucose 178 mg/dL (74-106)
[2022-01-11] MEDS: metFORMIN HCl 1,000 MG Tablet 1000 MG PO ×2 (08:57→17:59)
[2022-01-11] MEDS: Glimepiride 4 MG Tablet PO (08:57)
[2022-01-11] MEDS: Loratadine 10 MG Tablet PO (11:06)
[2022-01-11] MEDS: FLU VACC QS2022-23(6MOS UP)/PF 60 MCG/0.5 ML SYRINGE IM (11:36)
[2022-01-11 13:40] LABS: Bedside Glucose 153 mg/dL (74-106)
[2022-01-11] MEDS: Acetaminophen 325 MG Tablet 650 MG PO (18:32)
[2022-01-11 18:40] LABS: Bedside Glucose 149 mg/dL (74-106)
--- NOTE | 2022-01-11 19:14 | PCM.HP.STD ---
HPI - General General Date of Admission: 01/11/22 HPI Kevin KINCAID, is a 46 F who presented to the emergency room yesterday With uncontrolled right flank pain, nausea secondary to known right UPJ calculus which was diagnosed first in October. She has been in and out of the hospital and has not yet had surgical intervention. She has presented to the emergency room at least 3 times with uncontrolled pain. She denies fevers, chills but the pain doubles her over. She has a history of diabetes and high blood pressure, carpal tunnel and degenerative disc disease. She has not had surgical intervention for stones in the past. [facility] Medical History (Updated 01/11/22 @ 19:[address] Halima Kyle MD) Anxiety Anxiety and depression Bilateral carpal tunnel syndrome Bipolar disorder Chronic low back pain Degenerative arthritis Depression Diabetes Ectopic Former smoker Gallbladder calculus with acute cholecystitis H/O ETOH abuse Homelessness Hydronephrosis Hypertension Open wound of both lower extremities Osteoarthritis Paresthesia of upper extremity PTSD (post-traumatic stress disorder) Pyelonephritis Renal stones Right ureteral stone Sleep apnea Smoker Type 2 diabetes mellitus Urticaria Home Medications losartan 50 mg tablet 50 mg PO QHS blood pressure 11/25/21 [History Last Taken 01/09/22 19:00] escitalopram oxalate 5 mg tablet (Lexapro) 5 mg PO DAILY depression 01/10/22 [History Last Taken 01/09/22 19:00] famotidine 20 mg tablet 20 mg PO QHS reflux 01/10/22 [History Last Taken 01/09/22 19:00] fexofenadine 60 mg tablet (Najma Allergy) 60 mg PO BID allergies 01/10/22 [History Last Taken 01/10/22 08:30] gabapentin 100 mg capsule 100 mg PO QHS neuropathy 01/10/22 [History Last Taken 01/09/22 19:00] glimepiride 4 mg tablet 4 mg PO QAM diabetes 01/10/22 [History Last Taken 01/10/22 08:30] metformin 1,000 mg tablet 1,000 mg PO BID diabetes 01/10/22 [History Last Taken 01/10/22 08:30] sumatriptan succinate 100 mg tablet (Imitrex) See Rx Instructions PO .COMPLEX Check with primary doctor 01/10/22 [History Last Taken Unknown] Allergy/AdvReac Type Severity Reaction Status Date / Time Penicillins Allergy Hives Verified 01/10/22 17:37 venom-honey bee Allergy Anaphylaxis Verified 01/10/22 17:37 [bee venom (honey bee)] Family History Other Alcoholism Anxiety Arthritis Asthma Cancer Cervical cancer Depression Diabetes Heart disease Hypertension Myocardial infarction Ovarian cancer Surgical History History of tubal ligation Hx of cholecystectomy Social History Smoking Status: Former smoker alcohol intake: current alcohol intake frequency: holidays/special occasions only substance use type: does not use what type of physical activity do you participate in: walking ROS Constitutional Constitutional: Reports difficulty sleeping and headache(s); Denies anorexia, chills, fatigue or fever(s) Eyes Eyes: Reports systems reviewed and no addt'l complaints, except as documented ENT HEENT: Reports systems reviewed and no addt'l complaints, except as documented Cardiovascular Cardiovascular: Reports nausea and vomiting; Denies chest pain, dyspnea or irregular heart rhythm Respiratory/Chest Respiratory/Chest: Denies change in mental status, cough, dyspnea or inability to speak Gastrointestinal Gastrointestinal: Reports abdominal pain, nausea and vomiting Genitourinary Genitourinary: Reports flank pain, low back pain, urinary frequency and urinary urgency; Denies burning urination, dribbling, dysuria, hematuria or post void dribbling Musculoskeletal Musculoskeletal: Reports arthralgias and back pain Integumentary Integumentary: Reports systems reviewed and no addt'l complaints, except as documented Neurologic Neurologic: Reports systems reviewed and no addt'l complaints, except as documented Psychiatric Psychiatric: Reports systems reviewed and no addt'l complaints, except as documented Endocrine Endocrinology: Reports systems reviewed and no addt'l complaints, except as documented Hematologic/Lymphatic Hematologic/Lymphatic: Reports systems reviewed and no addt'l complaints, except as documented Allergic/Immunologic Allergic/Immunologic: Reports systems reviewed and no addt'l complaints, except as documented Vital Signs Vital Signs Vital Signs: 01/10/22 22:27 01/10/22 23:20 01/10/22 23:15 Temperature 98.5 F 97.8 F Temperature Source Temporal Oral Pulse Rate 91 73 Pulse Strength Respiratory Rate 15 16 Respiratory Effort Normal Non-Labored Respiratory Depth Normal Respiratory Pattern Normal Blood Pressure 148/96 H 124/85 H Blood Pressure Mean 113 98 Blood Pressure Source Monitor Blood Pressure Position Semi-Fowlers Blood Pressure Location Right Arm Pulse Ox 97 97 Oxygen Delivery Method Room Air Room Air Room Air 01/11/22 02:32 01/11/22 05:20 01/11/22 10:00 Temperature 97.8 F 97.6 F L 98 F Temperature Source Oral Oral Oral Pulse Rate 73 70 70 Pulse Strength Respiratory Rate 16 14 18 Respiratory Effort Respiratory Depth Respiratory Pattern Blood Pressure 124/85 H 103/74 140/82 H Blood Pressure Mean 98 83 101 Blood Pressure Source Monitor Monitor Blood Pressure Position Semi-Fowlers Semi-Fowlers Blood Pressure Location Right Arm Right Forearm Pulse Ox 97 94 95 Oxygen Delivery Method Room Air Room Air Room Air 01/11/22 10:00 01/11/22 10:00 01/11/22 08:32 Temperature 98 F Temperature Source Oral Pulse Rate 70 70 Pulse Strength Normal (2+) Respiratory Rate 18 18 Respiratory Effort Normal Respiratory Depth Normal Respiratory Pattern Normal Blood Pressure 140/82 H Blood Pressure Mean 101 Blood Pressure Source Blood Pressure Position Blood Pressure Location Pulse Ox 95 95 Oxygen Delivery Method Room Air Room Air 01/11/22 15:43 01/11/22 15:48 01/11/22 15:52 Temperature 98 F 98 F Temperature Source Oral Oral Pulse Rate 65 65 65 Pulse Strength Respiratory Rate 18 18 18 Respiratory Effort Normal Respiratory Depth Normal Respiratory Pattern Normal Blood Pressure 141/80 H 141/80 H Blood Pressure Mean 100 100 Blood Pressure Source Monitor Blood Pressure Position Semi-Fowlers Blood Pressure Location Right Forearm Pulse Ox 94 94 94 Oxygen Delivery Method Room Air Room Air Room Air Weight Weight: 98.8 kg Body Mass Index (BMI) 39.8 Physical Exam Const alert, oriented x3 and no apparent distress General Appearance: cooperative, comfortable and well kempt Orientation / Consciousness: awake HEENT normocephalic, head/scalp atraumatic, hearing grossly normal bilaterally, external ears normal, external nose normal and moist oral mucous membranes Eyes conjunctivae normal General Eye: normal appearance of both eyes Neck supple General: normal visual inspection Lymph Lymphatic: no lymphedema noted Chest inspection of chest normal Resp normal respiratory effort, normal air movement, no retractions and no use of accessory muscles Effort and Inspection: able to speak in complete sentences and symmetric chest movement Cardio regular rate and regular rhythm GI soft to palpation, non-tender and non-distended Bladder / Kidney Exam: CVA tenderness right Back/Spine General Back: CVA tenderness right Extremity normal to inspection Skin no rashes or lesions noted, no wounds, skin turgor normal, no jaundice, no petechiae and no mottling Neuro oriented x3, CN's II-XII intact bilaterally and moves all extremities Psych mental status grossly normal and thought process normal Results Lab / Micro Data Result Diagrams: 01/10/22 17:55 01/10/22 17:55 Labs: Laboratory Results - last 24 hr 01/10/22 20:51: POC Glucose 95 01/11/22 00:40: POC Glucose 162 H 01/11/22 06:21: POC Glucose 178 H 01/11/22 12:46: POC Glucose 153 H 01/11/22 17:58: POC Glucose 149 H Micro: Microbiology 01/10/22 18:50 Urine, Clean Catch Urine Culture - Preliminary Streptococcus agalactiae (B) Radiology Impression Abdomen/Pelvis CT 01/10/22 20:16 IMPRESSION: 5 mm renal stone previously seen in the inferior pole right kidney is now in the proximal right ureter and resulting in moderate hydronephrosis. Other right-sided stones including a large proximal ureteropelvic junction stone are unchanged. Potential displaced right fallopian sterilization clips. Correlate clinically for a history of sterilization clip placement. Electronically Signed: Ben Kemp DO at 22:20 EDT , Assessment & Plan Assessment/Plan (1) UTI (urinary tract infection): (2) Right kidney stone: (3) Right ureteral stone: (4) Hydronephrosis: PLAN: Plan N.p.o. after midnight tonight Plans for cystoscopy and right ureteral stent insertion under MAC anesthesia tomorrow Continue antibiotics and supportive care She is aware that the position and size of this stone burden will likely require multiple interventions for complete resolution The risks, benefits and alternatives to surgical intervention were discussed and she agrees to proceed.
[2022-01-11] MEDS: Ceftriaxone 1 GM/50 ML BAG IV (20:19)
[2022-01-11] MEDS: Escitalopram Oxalate 10 MG Tablet 5 MG PO (21:36)
[2022-01-12] VITALS (8 sets, daily range): BP systolic 112–134; BP diastolic 78–87; PULSE 69–80; RESP 14–18; TEMP 36.5–36.6; O2SAT 16–98; BMI 39.8
[2022-01-12 00:21] LABS: Bedside Glucose 117 mg/dL (74-106)
--- NOTE | 2022-01-12 05:55 | EKG12_ITS ---
Test Reason : AM EKG Blood Pressure : / mmHG Vent. Rate : 075 BPM Atrial Rate : 075 BPM P-R Int : 136 ms QRS Dur : 086 ms QT Int : 408 ms P-R-T Axes : 037 024 032 degrees QTc Int : 455 ms Normal sinus rhythm Normal ECG When compared with ECG of 23-MAY-2021 11:01, No significant change was found Confirmed by GEORGINA SANTIAGO, ANGELLA ([id number]), associate editor ARPITA REDMAN ([id number]) on 01/13/2022 1:18:37 PM Referred By: ERIN Confirmed By:ANGELLA ERICKSON MD
[2022-01-12 06:01] LABS: Absolute Neutrophil Count 3.6 X10^3/uL (2.0-7.7); Basophil# 0.03 X10^3/uL; Basophil% 0.5 % (0-1); Eosinophil# 0.37 X10^3/uL; Eosinophils% 6.5 % (0-5); Hematocrit 35.7 % (37-47); Lymphocyte % 22.8 % (19-41); Mean Corp Hgb Conc 33.6 g/dL (32-36); Mean Corpuscular Volume 89.3 fL (81-99); Mean Platelet Vol. 10.9 fl (6.2-12.0); Monocyte# 0.38 X10^3/uL; Monocyte% 6.7 % (0-10); NRBC Flagged by Analyzer 0 % (0-5); Neutrophil # 3.61 X10^3/uL (2.7-7.7); Neutrophil % 63.1 % (47-70); Platelet Count 196 K/mm3 (150-450); RBC Distribution Width CV 13.3 % (11.6-14.6); RBC Distribution Width SD 43.8 fl (35.1-43.9); White Blood Count 5.7 K/mm3 (4.4-11.0)
[2022-01-12 06:38] LABS: AST(SGOT) 15 U/L (15-37); Alanine Aminotransfer ALT/SGPT 30 U/L (13-56); Albumin, Serum 2.5 g/dL (3.2-5.0); Alkaline Phosphatase 96 U/L (45-117); Anion Gap 8 (5-15); BUN 22 mg/dL (7-18); BUN/Creat Ratio 23.1 RATIO (10-20); Bilirubin, Direct 0.08 mg/dL (0.00-0.30); Calcium,Total 8.9 mg/dL (8.5-10.1); Chloride 106 mmol/L (98-107); Creatinine, Serum 0.95 mg/dL (0.55-1.02); EST Glomerular Filtration Rate 68 mL/min (>60); Est Glom Filt Rate - Afr Amer 82 mL/min (>60); Estimated Creatinine Clearance 59.77 ml/min; Globulin 3.7 g/dL (2.2-4.2); Glucose 178 mg/dL (74-106); Potassium 4.1 mmol/L (3.5-5.1); Protein, Total 6.2 g/dL (6.4-8.2); Sodium Level 137 mmol/L (136-145)
[2022-01-12 06:46] LABS: International Normalized Ratio 0.9; Prothrombin Time (Protime)PT. 12.2 SECONDS (11.7-14.9)
[2022-01-12 06:47] LABS: Partial Thromboplast Time 24.6 Seconds (24.1-36.2)
[2022-01-12 07:06] LABS: Bedside Glucose 187 mg/dL (74-106)
[2022-01-12] MEDS: Dext 5%-0.45% NS 1,000 ML 100 ML IV (07:57)
[2022-01-12 08:12] LABS: Hemoglobin A1c 7.6 % (3.8-5.6)
[2022-01-12] MEDS: Ketorolac 30 MG/ML Syringe IV (08:15)
[2022-01-12] MEDS: 0.9% Saline Lock 10 ML Syringe IV (08:15)
--- NOTE | 2022-01-12 09:40 | CASEMGMT ---
VALERIE GURROLA Assessment: Face to Face with pt for initial transition planning/care coordination assessment. VALERIE GURROLA introduced self and role at [facility], pt voices understanding and consents to assessment. Pt is A/O x4 and answers all questions appropriately at this time. Care providers, pharmacy, and demographics verified/updated. Admitting Dx: kidney stone PCP:Renata Specialists:Pt denies. Preferred Pharmacy: [facility] Insurance: [employer] Prescription Benefit: yes LW/HPOA: Pt denies having a LW/DPOA and denies need for info regarding AD. LNOK: Ben Small, Living Arrangements: Pt lives with and two adult sons in a 30 foot camper in [place]. Pt states there are 2 steps to enter and she does not have difficulty with these. Pt reports she has heat and running water. Pt reports being I in ADL's and denies concerns at home. Transportation: Pt drives self and denies concerns with transportation. DME/HHC/SNF: Pt has a BGM with sufficient amount of lancets and strips and checks twice a day and if symptomatic. Pt has a cane and access to a FWW if needed. Pt denies hx of HHC or SNF stays. Pt states no concerns with going home at time of dc. Pt denies need for any resources for homelessness. States she has been homeless since beginning of November and has been denied assistance. Updated SW. Pt reports she has a services dog that she trained to detect her low blood sugars. Pt states no further concerns/needs. CM to follow. Advised pt to ask CM if any further question/concerns/needs arise, voices understanding. Pt Goal: Home Plan: Home
[2022-01-12 10:51] LABS: Bedside Glucose 153 mg/dL (74-106)
--- NOTE | 2022-01-12 12:36 | OP.PCM_ITS ---
Problems Associated Problem List Diagnoses (1) Right ureteral stone: Report of Operation Date of Procedure: 01/12/22 Pre-Operative Diagnosis: right ureteral calculus with hydronephrosis and urinary tract infection Post-Operative Diagnosis: Same Surgery/Procedure Performed:: Cystoscopy with right ureteral stent insertion Surgeon: Halima Kyle Type of Anesthesia: MAC Description of Procedure: The patient is a 46-year-old female with obstructing right ureteral calculus as well as a large right renal pelvic calculus. She now presents for insertion of a ureteral stent secondary to concurrent urinary tract infection. Informed consent was obtained. The patient was taken to the operating room and placed on the operating room table. Anesthesia monitored the head, neck, airway, IV access and vital signs throughout the case. Once anesthesia was appropriate ministered, the patient was placed into dorsolithotomy position was prepped and draped in usual sterile fashion. At this time the cystoscope was inserted through the urethra under direct visualization into the urinary bladder. On cystoscopic evaluation there was no mass or area of ulceration identified nor was there any foreign body. Diffusely scattered throughout the mucosa however it was evidence of cystitis cystica. At this time the patient's right ureteral orifice was intubated with an 0 .035 Glidewire seen to be curling in the renal pelvis under fluoroscopic visualization. A 6 [place] 24 cm JJ stent was then inserted over the wire with good curling in the renal pelvis as well as the urinary bladder. Good urine output was seen coming from the distal curl of the ureteral stent. The patient's bladder was then emptied and the case was terminated. She was awakened and taken to the recovery room in good condition. There were no complications during this procedure. Grafts/Implants Used: 6 x 24 JJ stent Complications none Admit VTE Documentation VTE Present on Admission: Yes VTE Mechan Device Prophylaxis: SCD's VTE Pharm Prophylaxis ordered?: No Reason prophylaxis not ordered:: Treatment Not Indicated
--- NOTE | 2022-01-12 12:40 | DCINST_ITS ---
Discharge Instructions Diet Discharge Diet: No restrictions Activity Discharge Activity: Return to Normal Activity and May Not Drive (while on narcotics) Dressing / Incision Call your doctor if you observe: Fever of 101 or Higher, Inability to urinate and Inability to have a bowel movement Follow Up Care Please Follow Up With: Halima Kyle MD When: call office for instructions Test Results: Test results from this visit will be discussed in further detail at your follow- up appointment, if applicable. Discharge Plan Admission Admit Date/Time: 01/11/22 00:16 Attending Provider: Halima Kyle Primary Care Provider: Brett Yanez Discharge Orders/Prescriptions Prescriptions: New ondansetron HCl [ondansetron HCl] 8 mg tablet 8 mg PO Q8H PRN PRN (Reason: Nausea) 7 Days Qty: 20 0RF phenazopyridine [Pyridium] 200 mg tablet 200 mg PO TID PRN PRN (Reason: Bladder Spasms) 7 Days Qty: 30 0RF oxycodone-acetaminophen [Percocet] 5-325 mg tablet 1 tab PO Q8H PRN (Reason: pain) 3 Days Qty: 12 0RF cephalexin [cephalexin] 500 mg capsule 500 mg PO 3XD 5 Days Qty: 15 0RF Continued losartan 50 mg tablet 50 mg PO QHS fexofenadine [Najma Allergy] 60 mg tablet 60 mg PO BID sumatriptan succinate [Imitrex] 100 mg tablet See Rx Instructions PO .COMPLEX Rx Instructions: take 1 tab at onset of headache; if no relief, may repeat 1 tab after at least 2 hrs; max = 2 tabs/24 hrs PO famotidine 20 mg tablet 20 mg PO QHS metformin 1,000 mg tablet 1,000 mg PO BID glimepiride 4 mg tablet 4 mg PO QAM Rx Instructions: administer with breakfast gabapentin 100 mg capsule 100 mg PO QHS escitalopram oxalate [Lexapro] 5 mg tablet 5 mg PO DAILY Referrals / Follow Up: Brett Yanez MD [Primary Care Provider] - Disposition Disposition (needs filled in before D/C Order can be placed): Home, Self Care
== END 2022-01-12 15:30 | disposition home or self-care (01) | DRG 463 ==
LOC: ED 22:01 → MS3 01-11 04:36
PROVIDERS: Anesthesiology; Physician Assistant; Admitting Provider Urology; Emergency Provider Emergency Medicine; PCP Internal Medicine; Visit Provider Urology
PROC: 0T768DZ Dilation of Right Ureter with Intraluminal Device, Via Natural or Artificial Opening Endoscopic (ICD-10-PCS; principal; 2022-01-12 12:20)
DX: N13.6 Pyonephrosis (principal); E11.9 Type 2 diabetes mellitus without complications; F31.9 Bipolar disorder, unspecified; I10 Essential (primary) hypertension; M54.50 Low back pain, unspecified; Z79.84 Long term (current) use of oral hypoglycemic drugs; G89.29 Other chronic pain; Z87.891 Personal history of nicotine dependence
CPT/HCPCS: 36415; 74176; 76000; 80048; 80076; 81001; 82962; 83036; 84703; 85025; 85610; 85730; 87077; 87086; 87088; 87811; 93005; 97802; 99284; J7050; 90686; A4216; C2617; J2405; J7799

== ENCOUNTER 2022-02-03 23:09 | Emergency (ER) | payer MEDICAID, SELFPAY ==
[2022-02-03 23:11] VITALS: BP 166/105; PULSE 102; RESP 18; TEMP 36.1; O2SAT 98; BMI 39.3
--- NOTE | 2022-02-03 23:55 | ED.VIS.GI ---
HPI HPI - GI History of Present Illness Chief Complaint: Flank Pain Informant: patient Narrative Narrative: Patient states she has been having right flank pain for the past 2 to 3 weeks since she received a right ureteral stent because of several large kidney stones. This was done by Dr. Dalton here. She states in the past 3 days she has had fevers, discomfort with urinating, and worsening pain. She feels malaised. She states he is homeless and living in the [facility] she has not called her surgeon about this because she has no way to do so, even though she says that she has multiple surgeries that need to happen, she does not know the timeline because she has not been able to contact her surgeon. [facility] Medical History Anxiety Anxiety and depression Bilateral carpal tunnel syndrome Bipolar disorder Chronic low back pain Degenerative arthritis Depression Diabetes Ectopic Former smoker Gallbladder calculus with acute cholecystitis H/O ETOH abuse Homelessness Hydronephrosis Hypertension Open wound of both lower extremities Osteoarthritis Paresthesia of upper extremity PTSD (post-traumatic stress disorder) Pyelonephritis Renal stones Right ureteral stone Sleep apnea Smoker Type 2 diabetes mellitus Urticaria Home Medications losartan 50 mg tablet 50 mg PO QHS blood pressure 11/25/21 [History Last Taken 01/09/22 19:00] escitalopram oxalate 5 mg tablet (Lexapro) 5 mg PO DAILY depression 01/10/22 [History Last Taken 01/09/22 19:00] famotidine 20 mg tablet 20 mg PO QHS reflux 01/10/22 [History Last Taken 01/09/22 19:00] fexofenadine 60 mg tablet (Najma Allergy) 60 mg PO BID allergies 01/10/22 [History Last Taken 01/10/22 08:30] gabapentin 100 mg capsule 100 mg PO QHS neuropathy 01/10/22 [History Last Taken 01/09/22 19:00] glimepiride 4 mg tablet 4 mg PO QAM diabetes 01/10/22 [History Last Taken 01/10/22 08:30] metformin 1,000 mg tablet 1,000 mg PO BID diabetes 01/10/22 [History Last Taken 01/10/22 08:30] sumatriptan succinate 100 mg tablet (Imitrex) See Rx Instructions PO .COMPLEX Check with primary doctor 01/10/22 [History Last Taken Unknown] cephalexin 500 mg capsule 500 mg PO 3XD post-operative 5 days #15 CAPSULES 01/12/22 [Rx Last Taken Unknown] sulfamethoxazole 800 mg-trimethoprim 160 mg tablet 1 tab PO BID #20 TABLETS 02/04/22 [Rx Last Taken Unknown] Allergy/AdvReac Type Severity Reaction Status Date / Time Penicillins Allergy Hives Verified 02/03/22 23:09 venom-honey bee Allergy Anaphylaxis Verified 02/03/22 23:09 [bee venom (honey bee)] Family History Other Alcoholism Anxiety Arthritis Asthma Cancer Cervical cancer Depression Diabetes Heart disease Hypertension Myocardial infarction Ovarian cancer Surgical History History of tubal ligation Hx of cholecystectomy Social History Smoking Status: Former smoker alcohol intake: current alcohol intake frequency: holidays/special occasions only substance use type: does not use what type of physical activity do you participate in: walking ROS ROS ED Constitutional Constitutional ED: Denies chills or fever(s) Eyes Eyes: Denies change in vision or diplopia ENT ENT ED: Denies rhinorrhea or sore throat Cardiovascular Cardiovascular: Denies chest pain or palpitations Respiratory/Chest Respiratory/Chest: Denies cough or dyspnea Gastrointestinal Gastrointestinal: Reports abdominal pain and nausea; Denies diarrhea or vomiting Genitourinary Genitourinary ED: Reports as per HPI, dysuria and flank pain; Denies hematuria Musculoskeletal Musculoskeletal: Reports back pain; Denies neck pain Integumentary Denies abscess or rash Neurologic Neurologic: Denies headache(s), paresthesias or weakness Psychiatric Psychiatric: Denies anxiety or suicidal thoughts EXAM Physical Exam Const Vital Signs: 02/03/22 23:11 02/04/22 01:00 Temperature 97.0 F L Temperature Source Temporal Pulse Rate 102 H 94 Respiratory Rate 18 18 Blood Pressure 166/105 H 126/79 H Blood Pressure Mean 125 94 Pulse Ox 98 95 Oxygen Delivery Method Room Air Room Air Positive well nourished, well developed, obese and unkempt General Appearance ED: unkempt, well developed and NAD Nutritional Appearance: obese HEENT Reports moist mucous membranes normocephalic and atraumatic Eyes PERRL and EOMs intact bilaterally Neck full ROM and supple Resp normal respiratory effort and clear to auscultation bilaterally Cardio regular rate, regular rhythm and no murmurs GI non-tender and non-distended Auscultation: normoactive bowel sounds Palpation: soft Back/Spine Back/Spine Narrative: Very mild right CVA tenderness, none on left. Normal inspection no rash. General Back: other FROM Extremity normal to inspection General Extremety ED: Negative for edema, pulses abnormal or tenderness General Extremity: Negative for edema or pulses abnormal Neuro oriented x3, CN's II-XII intact bilaterally and no sensory deficits noted Sensorium / Orientation: awake and alert Motor Exam: strength 5/5 throughout Psych Appearance: unkempt Skin no rashes or lesions noted and no wounds MDM MDM MDM Narrative Medical decision making narrative: Urinalysis appears to be consistent with infection, this was sent for culture and the patient was treated empirically with a dose of Rocephin 1 g IV. She was also given analgesics for her right flank pain which helped and she appears very comfortable on reevaluation. Clinically and hemodynamically she is stable and is not septic. She has a white blood count at 10.5, higher end of normal. No bandemia. KUB 1 view on my interpretation shows good placement of right double-J ureteral stent, radiology in agreement, also noted large stone in the right renal pelvis. I do not think she needs advanced imaging other than this at this time. Discussed with her urologist Dr. Kyle, who also understands patient's limited social resources and access, and would admit the patient if lithotripsy device was available tomorrow, however it is not. The patient does not have clinical indications for admission at this time. Therefore, if the patient can call the office during business hours when urology can review the lithotripsy and surgical schedule, the patient will try to be squeezed in BHAVNA. We will prescribe her Bactrim in the meantime she is comfortable with that plan. Lab Data Attestation: I reviewed the patient's lab results. Labs: Laboratory Results - last 24 hr 02/04/22 02/04/22 02/04/22 00:05 00:05 00:05 WBC 10.5 RBC 4.04 L Hgb 11.6 L Hct 36.1 L MCV 89.4 MCH 28.7 MCHC 32.1 RDW Std Deviation 41.4 RDW Coeff of Johnnie 12.7 Plt Count 260 MPV 10.8 Immature Gran % (Auto) 0.500 Neut % (Auto) 74.2 H Lymph % (Auto) 14.5 L [place] % (Auto) 7.0 Eos % (Auto) 3.4 Baso % (Auto) 0.4 Absolute Neuts (auto) 7.8 H Absolute Lymphs (auto) 1.52 Nucleated RBC % 0 Sodium 134 L Potassium 4.6 Chloride 100 Carbon Dioxide 29.0 Anion Gap 5 BUN 14 Creatinine 0.96 Estim Creat Clear Calc 59.15 Est GFR (MDRD) Af Amer 81 Est GFR (MDRD) Non-Af 67 BUN/Creatinine Ratio 14.5 Glucose 233 H Calcium 9.2 Urine Color Yellow Urine Clarity Sl. Cloudy Urine pH 8.0 Ur Specific [place] 1.010 Urine Protein 30 H Urine Glucose (UA) 100 H Urine Ketones Negative Urine Occult Blood 50 H Urine Nitrite Negative Urine Bilirubin Negative Urine Urobilinogen 1 H Ur Leukocyte Esterase 500 H Urine RBC 5-10 SEEN Urine WBC 50-100 SEEN Ur Squamous Epith Cells 0-5 SEEN Urine Bacteria 3+ Urine Mucus 0 SEEN Radiography Diagnostic Testing: Clinical Impression(s) from Imaging Studies KUB X-Ray 02/04/22 00:03 IMPRESSION: 1. Right double-J ureteral stent. 2. Large calcification in the right renal pelvis measuring 2.4 cm. Electronically Signed: Bishop Valdes MD at 0:42 EST , Discharge Plan Triage Chief Complaint: Flank Pain ED Provider: Daniel Melo Dx/Rx/DC Orders Clinical Impression: Complicated UTI (urinary tract infection), Right kidney stone, Right flank pain Instructions: UTIs Understanding Prescriptions: New sulfamethoxazole-trimethoprim [sulfamethoxazole-trimethoprim] 800-160 mg tablet 1 tab PO BID Qty: 20 0RF No Action losartan 50 mg tablet 50 mg PO QHS fexofenadine [Najma Allergy] 60 mg tablet 60 mg PO BID sumatriptan succinate [Imitrex] 100 mg tablet See Rx Instructions PO .COMPLEX Rx Instructions: take 1 tab at onset of headache; if no relief, may repeat 1 tab after at least 2 hrs; max = 2 tabs/24 hrs PO famotidine 20 mg tablet 20 mg PO QHS metformin 1,000 mg tablet 1,000 mg PO BID glimepiride 4 mg tablet 4 mg PO QAM Rx Instructions: administer with breakfast gabapentin 100 mg capsule 100 mg PO QHS escitalopram oxalate [Lexapro] 5 mg tablet 5 mg PO DAILY cephalexin [cephalexin] 500 mg capsule 500 mg PO 3XD 5 Days Qty: 15 0RF Primary Care Provider: Brett Yanez Referrals: Brett Yanez MD [Primary Care Provider] - Halima Kyle MD [Med Staff - Active Staff] - As soon as possible Disposition Disposition: Home, Self Care
[2022-02-03] MEDS: Ketorolac 30 MG/ML Syringe IV (23:59)
[2022-02-03] MEDS: Morphine 4 MG/ML Syringe IV (23:59)
[2022-02-03] MEDS: Ondansetron 4 MG/2 ML Vial IV (23:59)
[2022-02-03] MEDS: 0.9% Normal Saline 1,000 ML 1000 ML IV (23:59)
--- NOTE | 2022-02-04 00:03 | RAD_ITS ---
EXAM: XR ABDOMEN, 1 VIEW CLINICAL INDICATION: Pain R flank, ureteral stent, fever TECHNIQUE: Frontal supine view of the abdomen/pelvis. This report was created using [employer] report generation technology. COMPARISON: None. FINDINGS: LOWER THORAX: No acute pathology. GASTROINTESTINAL TRACT: Moderate amount stool in the colon. Non-obstructive. No bowel or stomach distention. ORGANS: Large calcification in the right renal pelvis measuring 2.4 cm. BONES/JOINTS: No acute pathology. SOFT TISSUES: No acute pathology. TUBES, LINES AND DEVICES: Right double-J ureteral stent. RAD/Abdomen Single View IMPRESSION: 1. Right double-J ureteral stent. 2. Large calcification in the right renal pelvis measuring 2.4 cm. Electronically Signed: Bishop Valdes MD at 0:42 EST ,
[2022-02-04 00:11] LABS: Mucous, Urine 0 SEEN /hpf (<or=2+)
[2022-02-04 00:12] LABS: Absolute Lymphocyte Count 1.52 X10^3/uL (0.83-4.51); Absolute Neutrophil Count 7.8 X10^3/uL (2.0-7.7); Basophil# 0.04 X10^3/uL; Basophil% 0.4 % (0-1); Eosinophil# 0.36 X10^3/uL; Eosinophils% 3.4 % (0-5); Hematocrit 36.1 % (37-47); Hemoglobin 11.6 g/dL (12.0-15.0); Lymphocyte # 1.52 X10^3/ul (0.83-4.51); Lymphocyte % 14.5 % (19-41); Mean Corp Hgb Conc 32.1 g/dL (32-36); Mean Corpuscular Hgb 28.7 pg (27.0-32.0); Mean Corpuscular Volume 89.4 fL (81-99); Mean Platelet Vol. 10.8 fl (6.2-12.0); Monocyte# 0.73 X10^3/uL; NRBC Flagged by Analyzer 0 % (0-5); Neutrophil # 7.78 X10^3/uL (2.7-7.7); Neutrophil % 74.2 % (47-70); Platelet Count 260 K/mm3 (150-450); RBC Distribution Width CV 12.7 % (11.6-14.6); RBC Distribution Width SD 41.4 fl (35.1-43.9); Red Blood Count 4.04 M/mm3 (4.2-5.4); White Blood Count 10.5 K/mm3 (4.4-11.0)
[2022-02-04 00:13] LABS: Color, Urine Yellow (Yellow); Glucose, Dipstick 100 mg/dl (Normal); Ketone-Dipstick Negative (Negative); Leukocyte Esterase-Dipstick 500 /ul (Negative); Nitrite-Dipstick Negative (Negative); Occult Blood-Urine 50 /ul (Negative); Protein-Dipstick 30 mg/dl (Negative); Urine Bilirubin Dipstick Negative (Negative); Urine Clarity Sl. Cloudy (Clear); Urine Urobilinogen 1 mg/dl (Normal)
[2022-02-04 00:24] LABS: Bacteria 3+ /hpf (None Seen); Red Blood Cells-Urine 5-10 SEEN /hpf (0-5); Squamous Epithelial Cells - UA 0-5 SEEN /hpf (5-10); White Blood Cells 50-100 SEEN /hpf (0-5)
[2022-02-04 00:25] LABS: Anion Gap 5 (5-15); BUN 14 mg/dL (7-18); BUN/Creat Ratio 14.5 RATIO (10-20); Calcium,Total 9.2 mg/dL (8.5-10.1); Chloride 100 mmol/L (98-107); Creatinine, Serum 0.96 mg/dL (0.55-1.02); EST Glomerular Filtration Rate 67 mL/min (>60); Est Glom Filt Rate - Afr Amer 81 mL/min (>60); Estimated Creatinine Clearance 59.15 ml/min; Glucose 233 mg/dL (74-106); Potassium 4.6 mmol/L (3.5-5.1); Sodium Level 134 mmol/L (136-145)
[2022-02-04] MEDS: Ceftriaxone 1 GM/50 ML BAG IV (00:57)
[2022-02-04 01:00] VITALS: BP 126/79; PULSE 94; RESP 18; O2SAT 95
[2022-02-04 02:23] VITALS: BP 127/85; PULSE 82; RESP 15; O2SAT 96
== END 2022-02-04 02:25 | disposition home or self-care (01) ==
PROVIDERS: Emergency Provider Emergency Medicine; PCP Internal Medicine; Visit Provider Emergency Medicine
DX: N39.0 Urinary tract infection, site not specified (principal); E11.9 Type 2 diabetes mellitus without complications; N20.0 Calculus of kidney; I10 Essential (primary) hypertension; G47.30 Sleep apnea, unspecified; E66.9 Obesity, unspecified; F41.9 Anxiety disorder, unspecified; F32.A Depression, unspecified; Z79.84 Long term (current) use of oral hypoglycemic drugs; Z79.899 Other long term (current) drug therapy; Z87.891 Personal history of nicotine dependence
CPT/HCPCS: 74018; 80048; 81001; 85025; 87086; 87088; 96361; 96365; 96375; 99283; J7030; J7050; A4216; J2405

== ENCOUNTER 2022-02-19 12:45 | Day surgery (SDC) | payer MEDICAID, SELFPAY ==
--- NOTE | 2022-02-13 16:04 | CASEMGMT ---
VALERIE GURROLA Preoperative Assessment: Ana with Dr. Kyle's office contacted [facility] in regards to concerns related to pt's home situation and request to stay postoperatively s/p her outpt procedure scheduled for next , 02/19/22. This VALERIE GURROLA contacted pt in follow-up to these concerns. Specialists: Dr Kyle (urologist) Insurance: [employer] Prescription Benefit: Yes SDOH: Housing/Heat: Pt lives in a camper on her mother's property. This camper does not have running water but does have an electric heater. Pt states they obtain electric by running 2 extension cords from their camper to another building. They also have a propane heater but do not have the money to pay for propane. Pt states a 20# propane tank lasts 3 days. Pt states they use the dog salon attached to her mother's house for water and purchase bottled water. Pt states they applied for [employer] housing in November of 2021 but have not heard back from anyone. Pt states they contacted [employer] but no one will rent to us, they don't want to deal with us. Pt states they do have 5 dogs and 3 cats. Food: Pt states they receive food stamps and denies any concerns about having food. Transportation: Pt states she has a car but states it isn't trustworthy so I only drive it if I have to. States her mother is able to transport her to appointments. Pt's does not have a license and neither does her 18yo son. Supports: Pt's . Pt's mother is supportive and assists when able. Pt states she doesn't like to ask too much from her mother out of courtesy. Other family dynamics: Pt's 19yo son (with MH concerns) lives with pt's aunt and pt's 28yo son lives with pt's mother. The 28yo son hates me with a passion which prohibits pt from staying at her mother's home. Income: Pt's 18yo son (with MH diagnoses) gets survivor benefits ($1400/month) while he remains in high school. Upon graduation, he will receive disability (this has already been applied for and approved). Pt denies any other income from her or herself. Pt states she was told to apply for disability but states she has difficulty with reading and understanding the forms. Pt states she has a case management social worker from [facility] but they have not helped her with a disability application. Phone: Pt has a cell phone but must be in the range of [employer] for it to work. Pt's mother's phone works but pt doesn't want to keep her mother's phone busy and prohibit her mother from receiving calls. Plan: Pt states she is able to return to their camper postoperatively but expressed concerns related to recurrent UTI's and wanting to ensure that these are under control prior to returning home. Pt states due to limited ability to contact doctors and attend appointments, she wants to make sure she will be able to remain home. Relayed to pt that Dr. Kyle will need to make the determination postoperatively if she requires hospitalization postop or if she is stable to return home. Pt in agreement. Radha Cason RN CM
[2022-02-19] VITALS (7 sets, daily range): BP systolic 111–139; BP diastolic 65–93; PULSE 82–90; RESP 16–17; TEMP 36.1–36.9; O2SAT 91–96; BMI 39.1
[2022-02-19 13:35] LABS: Bedside Glucose 122 mg/dL (74-106)
--- NOTE | 2022-02-19 13:35 | PCM.OPRPT ---
Problems Associated Problem List Diagnoses (1) Renal stones: Report of Operation Date of Procedure: 02/19/22 Pre-Operative Diagnosis: Right renal and ureteral calculus Post-Operative Diagnosis: Same, passed ureteral stone Surgery/Procedure Performed:: Right renal extracorporal shockwave lithotripsy Surgeon: Halima Kyle Type of Anesthesia: General Specimen's removed: None Description of Procedure: The patient is a 46-year-old female with a right ureteral and right renal calculus, status post right ureteral stent insertion.? She presents for extracorporeal shockwave lithotripsy.? Informed consent has been obtained.? The patient was taken to the operating room and placed in a supine position on the lithotripter table.? Anesthesia monitored the head, neck, airway, IV access and vital signs throughout the case.? Once anesthesia was appropriately administered, the patient was appropriately aligned on the table with appropriate visualization of the stone.? There was no ureteral stone seen. 3000 shocks were then applied to the renal calculus which appeared to be well fragmented at the conclusion of the case.? The patient was then awakened and taken to the recovery room in good condition.? There were no complications during this procedure. Grafts/Implants Used:?None Grafts/Implants Used: None Complications None Admit VTE Documentation VTE Present on Admission: Yes VTE Mechan Device Prophylaxis: SCD's VTE Pharm Prophylaxis ordered?: No Reason prophylaxis not ordered:: Treatment Not Indicated
--- NOTE | 2022-02-19 13:59 | DCINST_ITS ---
Discharge Instructions Diet Discharge Diet: No restrictions Activity Discharge Activity: Return to Normal Activity May resume sexual activity in: No Restrictions Dressing / Incision Call your doctor if you observe: Fever of 101 or Higher, Inability to urinate and Inability to have a bowel movement Follow Up Care Please Follow Up With: Halima Kyle MD When: Call office for appointment to be seen in 2 to 3 weeks with a KUB, possible cystoscopy with stent removal Test Results: Test results from this visit will be discussed in further detail at your follow- up appointment, if applicable. Discharge Plan Admission Attending Provider: Halima Kyle Primary Care Provider: Brett Yanez Discharge Orders/Prescriptions Prescriptions: New oxycodone-acetaminophen [Percocet] 5-325 mg tablet 1 tab PO Q8H PRN (Reason: pain) 3 Days Qty: 14 0RF phenazopyridine [Pyridium] 200 mg tablet 200 mg PO TID PRN PRN (Reason: Bladder Spasms) 7 Days Qty: 30 0RF Continued losartan 50 mg tablet 50 mg PO QHS fexofenadine [Najma Allergy] 60 mg tablet 60 mg PO BID sumatriptan succinate [Imitrex] 100 mg tablet See Rx Instructions PO .COMPLEX Rx Instructions: take 1 tab at onset of headache; if no relief, may repeat 1 tab after at least 2 hrs; max = 2 tabs/24 hrs PO famotidine 20 mg tablet 20 mg PO QHS metformin 1,000 mg tablet 1,000 mg PO BID glimepiride 4 mg tablet 4 mg PO QAM Rx Instructions: administer with breakfast gabapentin 100 mg capsule 100 mg PO QHS escitalopram oxalate [Lexapro] 5 mg tablet 5 mg PO DAILY ciprofloxacin HCl [Cipro] 500 mg Tablet 500 mg PO BID Referrals / Follow Up: Brett Yanez MD [Primary Care Provider] - Disposition Disposition (needs filled in before D/C Order can be placed): Home, Self Care
[2022-02-19] MEDS: Cefazolin 2 GM in 0.9% Normal Saline 100 ML IV (14:52)
[2022-02-19] MEDS: Lactated Ringers 1,000 ML 15 ML IV (15:30)
[2022-02-19 16:51] LABS: Bedside Glucose 101 mg/dL (74-106)
== END 2022-02-19 17:35 | disposition home or self-care (01) ==
LOC: SDC 12:45 → AC 12:47
PROVIDERS: PCP Internal Medicine; Referring Provider Urology; Visit Provider Urology
PROC: (CPT 50590; principal; 2022-02-19 14:35)
DX: N20.2 Calculus of kidney with calculus of ureter (principal); E11.9 Type 2 diabetes mellitus without complications; F32.A Depression, unspecified; F41.9 Anxiety disorder, unspecified; K21.9 Gastro-esophageal reflux disease without esophagitis; I10 Essential (primary) hypertension
CPT/HCPCS: 50590; 00873; 82962; J7120; J2405

== ENCOUNTER 2022-05-24 19:24 | Inpatient (IN) | payer MEDICAID, SELFPAY ==
[2022-05-24 19:25] VITALS: BP 221/99; PULSE 113; RESP 16; TEMP 36.2; O2SAT 100; BMI 42.0
--- NOTE | 2022-05-24 19:36 | CT_ITS ---
STUDY: CT Abdomen And Pelvis W/O Contrast Injection 05/24/2022 8:17 PM REASON FOR EXAM: Female, 46 years old. right stent in place from feb 26, right lower back pain x 4 days PAIN right flank TECHNIQUE: Transaxial images were obtained without oral contrast, and without intravenous contrast. Individualized dose optimization techniques were used for this CT. COMPARISON: 01.10.22. FINDINGS: The visualized lung bases are unremarkable. The visualized portions of the heart are within normal limits. There is hepatomegaly with diffuse hepatic enlargement. There are surgical clips in the gallbladder fossa consistent with a prior cholecystectomy. Unremarkable spleen. Unremarkable pancreas. Unremarkable bilateral adrenal glands. There is mild inflammation around the right kidney. Double J right ureteral stent in place. There is no stone in the course of the right ureter. No acute findings of the left kidney. Unremarkable visualized stomach. Unremarkable small intestine. Unremarkable colon. There is non-visualization of the appendix. There are no acute findings of the abdominal aorta. Unremarkable inferior vena cava. Subcentimeter mesenteric lymph nodes. Unremarkable urinary bladder. Unremarkable abdominal wall. There are diffuse degenerative changes of the visualized lumbar spine. CT/Abdomen/Pelvis without Cont IMPRESSION: (NOT LISTED IN ORDER OF SIGNIFICANCE) There is mild inflammation around the right kidney. Double J right ureteral stent in place. There is no stone in the course of the right ureter. There is hepatomegaly with diffuse hepatic enlargement. Other findings as above. Electronically Signed: Bishop Vargas MD at 20:22 EDT ,
--- NOTE | 2022-05-24 19:39 | EX.ED.DYSGE1 ---
HPI <BRIGETTE Garrett - Last Filed: 05/24/22 21:04> History of Present Illness Chief Complaint: Back Narrative Narrative: 46-year-old female with PMH of HTN, DM2, kidney stones presents with 4 days of right flank pain. Today it started radiating around to the right lower abdomen and she had chills and nausea and vomiting. She is urinating normally but has suprapubic pressure. No hematuria or dysuria. She had kidney stones multiple times, states she had a right ureteral stent placed around 2021 and then a laser procedure to break up the stones in March 2022. She never followed up to have the stent removed because she is homeless. PFSH <BRIGETTE Garrett - Last Filed: 05/24/22 21:04> [facility] Medical History Anemia Anxiety Anxiety and depression Bilateral carpal tunnel syndrome Bipolar disorder Blister Chronic low back pain Degenerative arthritis Depression Diabetes Dietary restriction Difficulty chewing Ectopic Former smoker Former smoker Gastric reflux H/O ETOH abuse History of echocardiogram History of edema History of pain when walking History of renal disease History of stress test History of ulceration Homelessness Hydronephrosis Hypertension Hypertension Injury of head and neck Neuropathy Open wound of both lower extremities Osteoarthritis Paresthesia of upper extremity PTSD (post-traumatic stress disorder) Pyelonephritis Renal stones Right ureteral stone Shortness of breath on exertion Syncope Type 2 diabetes mellitus Urticaria Home Medications losartan 50 mg tablet 50 mg PO QHS blood pressure 11/25/21 [History Last Taken 01/09/22 19:00] escitalopram oxalate 5 mg tablet (Lexapro) 5 mg PO DAILY depression 01/10/22 [History Last Taken 01/09/22 19:00] famotidine 20 mg tablet 20 mg PO QHS reflux 01/10/22 [History Last Taken 01/09/22 19:00] fexofenadine 60 mg tablet (Najma Allergy) 60 mg PO BID allergies 01/10/22 [History Last Taken 01/10/22 08:30] gabapentin 100 mg capsule 100 mg PO QHS neuropathy 01/10/22 [History Last Taken 01/09/22 19:00] glimepiride 4 mg tablet 4 mg PO QAM diabetes 01/10/22 [History Last Taken 01/10/22 08:30] metformin 1,000 mg tablet 1,000 mg PO BID diabetes 01/10/22 [History Last Taken 01/10/22 08:30] sumatriptan succinate 100 mg tablet (Imitrex) See Rx Instructions PO .COMPLEX Check with primary doctor 01/10/22 [History Last Taken Unknown] ciprofloxacin HCl 500 mg tablet (Cipro) 500 mg PO BID 02/17/22 [History Last Taken Unknown] oxycodone-acetaminophen 5 mg-325 mg tablet (Percocet) 1 tab PO Q8H PRN pain 3 days #14 tabs 02/19/22 [Rx Last Taken Unknown] phenazopyridine 200 mg tablet (Pyridium) 200 mg PO TID PRN PRN Bladder Spasms 7 days #30 tabs 02/19/22 [Rx Last Taken Unknown] Allergy/AdvReac Type Severity Reaction Status Date / Time Penicillins Allergy Hives Verified 05/24/22 19:27 venom-honey bee Allergy Anaphylaxis Verified 05/24/22 19:27 [bee venom (honey bee)] Family History Other Alcoholism Anxiety Arthritis Asthma Cancer Cervical cancer Depression Diabetes Heart disease Hypertension Myocardial infarction Ovarian cancer Surgical History History of tubal ligation Hx of cholecystectomy Hx of cystoscopy Social History Smoking Status: Former smoker alcohol intake: current alcohol intake frequency: holidays/special occasions only substance use type: does not use what type of physical activity do you participate in: walking ROS <BRIGETTE Garrett - Last Filed: 05/24/22 21:04> ROS ED ROS Narrative Constitutional: Positive for chills. Negative for fever. CVS: Negative for chest pain. Respiratory: Negative for shortness of breath, cough. GI: Positive for abdominal pain, nausea, vomiting. : Negative for dysuria, hematuria. EXAM <BRIGETTE Garrett - Last Filed: 05/24/22 21:04> Physical Exam Narrative Exam Narrative: CONST: Patient lying in bed appears uncomfortable. EYES: Normal inspection. ENT: Normal inspection, moist mucous membranes. NECK: Normal inspection. RESP: No respiratory distress, CTAB. CVS: Regular rate and rhythm, no murmur, no gallop. ABD: Soft with right mid abdominal tenderness, no guarding or rebound, nondistended. Back: Normal inspection, right CVA tenderness. SKIN: Color normal, no rash, warm, dry, intact. EXTREMITIES: Normal appearance, no pedal edema. NEURO: Oriented x4. PSYCH: Normal affect. Const Vital Signs: 05/24/22 19:25 05/24/22 19:56 05/24/22 19:56 Temperature 97.2 F L 97.2 F L Temperature Source Temporal Temporal Pulse Rate 113 H 110 H 110 H Respiratory Rate 16 18 18 Blood Pressure 221/99 H 155/118 H 155/118 H Blood Pressure Mean 139 130 130 Pulse Ox 100 100 100 Oxygen Delivery Method Room Air Room Air Room Air <Dr. Ld Huggins DO - Last Filed: 05/24/22 22:08> Physical Exam Const Vital Signs: 05/24/22 19:25 05/24/22 19:56 05/24/22 19:56 Temperature 97.2 F L 97.2 F L Temperature Source Temporal Temporal Pulse Rate 113 H 110 H 110 H Respiratory Rate 16 18 18 Blood Pressure 221/99 H 155/118 H 155/118 H Blood Pressure Mean 139 130 130 Pulse Ox 100 100 100 Oxygen Delivery Method Room Air Room Air Room Air [facility] <BRIGETTE Garrett - Last Filed: 05/24/22 21:04> [facility] Narrative Medical decision making narrative: History gathered from: Patient and son Patient with history of kidney stones has 4 days of right flank pain rating around to the abdomen, chills, nausea and vomiting starting today. She appears uncomfortable but nontoxic. BP 221/99, HR 113, otherwise normal vital signs. She has right mid abdominal tenderness and right flank pain on exam. Labs, UA, CT will be obtained. CBC shows white count 11.8. BMP shows normal electrolytes, normal renal function at 14?0 0.93. Glucose of 215 consistent with diabetes with normal anion gap. CT shows mild inflammation around the right kidney and with her symptoms this is consistent with pyelonephritis. Right ureteral stent is in place with no visualized stone. Urinalysis is pending and case was signed over to the attending. Lab Data Attestation: I reviewed the patient's lab results. Labs: Laboratory Results - last 24 hr 05/24/22 05/24/22 05/24/22 19:42 19:42 21:00 WBC 11.8 H RBC 4.52 Hgb 13.2 Hct 42.3 MCV 93.6 MCH 29.2 MCHC 31.2 L RDW Std Deviation 45.1 H RDW Coeff of Johnnie 13.1 Plt Count 250 MPV 10.4 Immature Gran % (Auto) 0.500 Neut % (Auto) 78.9 H Lymph % (Auto) 13.5 L [place] % (Auto) 4.3 Eos % (Auto) 2.2 Baso % (Auto) 0.6 Absolute Neuts (auto) 9.3 H Absolute Lymphs (auto) 1.60 Nucleated RBC % 0 Sodium 137 Potassium 4.0 Chloride 103 Carbon Dioxide 29.0 Anion Gap 5 BUN 14 Creatinine 0.93 Estim Creat Clear Calc 61.05 Est GFR (MDRD) Af Amer 84 Est GFR (MDRD) Non-Af 69 BUN/Creatinine Ratio 15.0 Glucose 215 H Calcium 9.0 Urine Color Yellow Urine Clarity Sl. Cloudy Urine pH 6.5 Ur Specific Harper 1.010 Urine Protein 30 H Urine Glucose (UA) Normal Urine Ketones Negative Urine Occult Blood 25 H Urine Nitrite Positive H Urine Bilirubin Negative Urine Urobilinogen Normal Ur Leukocyte Esterase 500 H Urine RBC 5-10 SEEN Urine WBC 25-50 SEEN Ur Squamous Epith Cells 0 SEEN Amorphous Sediment 1+ URATE Urine Bacteria 1+ Urine Mucus 0 SEEN Urine Yeast 0 SEEN Radiography Diagnostic Testing: Clinical Impression(s) from Imaging Studies Abdomen/Pelvis CT 05/24/22 19:36 IMPRESSION: (NOT LISTED IN ORDER OF SIGNIFICANCE) There is mild inflammation around the right kidney. Double J right ureteral stent in place. There is no stone in the course of the right ureter. There is hepatomegaly with diffuse hepatic enlargement. Other findings as above. Electronically Signed: Bishop Vargas MD at 20:22 EDT , <Dr. Ld Huggins, DO - Last Filed: 05/24/22 22:08> [facility] MDM Narrative Medical decision making narrative: History gathered from: Patient and son Patient with history of kidney stones has 4 days of right flank pain rating around to the abdomen, chills, nausea and vomiting starting today. She appears uncomfortable but nontoxic. BP 221/99, HR 113, otherwise normal vital signs. She has right mid abdominal tenderness and right flank pain on exam. Labs, UA, CT will be obtained. CBC shows white count 11.8. BMP shows normal electrolytes, normal renal function at 14?0 0.93. Glucose of 215 consistent with diabetes with normal anion gap. CT shows mild inflammation around the right kidney and with her symptoms this is consistent with pyelonephritis. Right ureteral stent is in place with no visualized stone. Urinalysis is pending and case was signed over to the attending. This patient was seen with a PA/SE[employer] M[employer] SUPERINTENDENT Individually assessed they patient including history and physical. I have reviewed everything on the chart that is available and agree with the documentation provided by the PA/SEED MILL SUPERINTENDENT including discussion about the assessment, treatment plan, discussion, and return precautions. Homeless female states she [place] [facility] [place] her family and has no money and no transportation she had a stent in her right ureter since January or so. She is presenting with flank pain with concern for kidney stone versus pyelonephritis. Lab work was obtained and indicates a small slightly blood cell count. Renal function is normal. Urinalysis consistent with infection. CT of the abdomen pelvis was performed which shows no obstructive uropathy but does show pyelonephritis. Discussed with Dr. Dalton who recommended admission for IV antibiotics and removal of her stent. Patient amenable to this. Patient given Rocephin IV. Urine culture sent. Impression: 1. Retained ureteral stent 2. Pyelonephritis Lab Data Labs: Laboratory Results - last 24 hr 05/24/22 05/24/22 05/24/22 19:42 19:42 21:00 WBC 11.8 H RBC 4.52 Hgb 13.2 Hct 42.3 MCV 93.6 MCH 29.2 MCHC 31.2 L RDW Std Deviation 45.1 H RDW Coeff of Johnnie 13.1 Plt Count 250 MPV 10.4 Immature Gran % (Auto) 0.500 Neut % (Auto) 78.9 H Lymph % (Auto) 13.5 L [place] % (Auto) 4.3 Eos % (Auto) 2.2 Baso % (Auto) 0.6 Absolute Neuts (auto) 9.3 H Absolute Lymphs (auto) 1.60 Nucleated RBC % 0 Sodium 137 Potassium 4.0 Chloride 103 Carbon Dioxide 29.0 Anion Gap 5 BUN 14 Creatinine 0.93 Estim Creat Clear Calc 61.05 Est GFR (MDRD) Af Amer 84 Est GFR (MDRD) Non-Af 69 BUN/Creatinine Ratio 15.0 Glucose 215 H Calcium 9.0 Urine Color Yellow Urine Clarity Sl. Cloudy Urine pH 6.5 Ur Specific Harper 1.010 Urine Protein 30 H Urine Glucose (UA) Normal Urine Ketones Negative Urine Occult Blood 25 H Urine Nitrite Positive H Urine Bilirubin Negative Urine Urobilinogen Normal Ur Leukocyte Esterase 500 H Urine RBC 5-10 SEEN Urine WBC 25-50 SEEN Ur Squamous Epith Cells 0 SEEN Amorphous Sediment 1+ URATE Urine Bacteria 1+ Urine Mucus 0 SEEN Urine Yeast 0 SEEN Radiography Diagnostic Testing: Clinical Impression(s) from Imaging Studies Abdomen/Pelvis CT 05/24/22 19:36 IMPRESSION: (NOT LISTED IN ORDER OF SIGNIFICANCE) There is mild inflammation around the right kidney. Double J right ureteral stent in place. There is no stone in the course of the right ureter. There is hepatomegaly with diffuse hepatic enlargement. Other findings as above. Electronically Signed: Bishop Vargas MD at 20:22 EDT , Discharge Plan Triage Chief Complaint: Back ED Midlevel Provider: Tasha Ramos ED Provider: Ld Huggins Dx/Rx/DC Orders Prescriptions: No Action losartan 50 mg tablet 50 mg PO QHS fexofenadine [Najma Allergy] 60 mg tablet 60 mg PO BID sumatriptan succinate [Imitrex] 100 mg tablet See Rx Instructions PO .COMPLEX Rx Instructions: take 1 tab at onset of headache; if no relief, may repeat 1 tab after at least 2 hrs; max = 2 tabs/24 hrs PO famotidine 20 mg tablet 20 mg PO QHS metformin 1,000 mg tablet 1,000 mg PO BID glimepiride 4 mg tablet 4 mg PO QAM Rx Instructions: administer with breakfast gabapentin 100 mg capsule 100 mg PO QHS escitalopram oxalate [Lexapro] 5 mg tablet 5 mg PO DAILY ciprofloxacin HCl [Cipro] 500 mg Tablet 500 mg PO BID oxycodone-acetaminophen [Percocet] 5-325 mg tablet 1 tab PO Q8H PRN (Reason: pain) 3 Days Qty: 14 0RF phenazopyridine [Pyridium] 200 mg tablet 200 mg PO TID PRN PRN (Reason: Bladder Spasms) 7 Days Qty: 30 0RF Primary Care Provider: Brett Yanez Referrals: Brett Yanez MD [Primary Care Provider] -
[2022-05-24 19:47] LABS: Absolute Neutrophil Count 9.3 X10^3/uL (2.0-7.7); Basophil# 0.07 X10^3/uL; Basophil% 0.6 % (0-1); Eosinophil# 0.26 X10^3/uL; Eosinophils% 2.2 % (0-5); Hematocrit 42.3 % (37-47); Hemoglobin 13.2 g/dL (12.0-15.0); Lymphocyte % 13.5 % (19-41); Mean Corp Hgb Conc 31.2 g/dL (32-36); Mean Corpuscular Hgb 29.2 pg (27.0-32.0); Mean Corpuscular Volume 93.6 fL (81-99); Mean Platelet Vol. 10.4 fl (6.2-12.0); Monocyte# 0.51 X10^3/uL; Monocyte% 4.3 % (0-10); NRBC Flagged by Analyzer 0 % (0-5); Neutrophil # 9.31 X10^3/uL (2.7-7.7); Neutrophil % 78.9 % (47-70); Platelet Count 250 K/mm3 (150-450); RBC Distribution Width CV 13.1 % (11.6-14.6); RBC Distribution Width SD 45.1 fl (35.1-43.9); Red Blood Count 4.52 M/mm3 (4.2-5.4); White Blood Count 11.8 K/mm3 (4.4-11.0)
[2022-05-24] MEDS: Ondansetron 4 MG/2 ML Vial IV (19:48)
[2022-05-24] MEDS: 0.9% Normal Saline 1,000 ML 999 ML IV (19:48)
[2022-05-24] MEDS: Ketorolac 30 MG/ML Syringe IV (19:48)
[2022-05-24 19:56] VITALS: BP 155/118; PULSE 110; RESP 18; TEMP 36.2; O2SAT 100
[2022-05-24 20:04] LABS: Anion Gap 5 (5-15); BUN 14 mg/dL (7-18); Chloride 103 mmol/L (98-107); Creatinine, Serum 0.93 mg/dL (0.55-1.02); EST Glomerular Filtration Rate 69 mL/min (>60); Est Glom Filt Rate - Afr Amer 84 mL/min (>60); Estimated Creatinine Clearance 61.05 ml/min; Glucose 215 mg/dL (74-106); Sodium Level 137 mmol/L (136-145)
[2022-05-24 21:12] LABS: Mucous, Urine 0 SEEN /hpf (<or=2+); Squamous Epithelial Cells - UA 0 SEEN /hpf (5-10)
[2022-05-24 21:16] LABS: Color, Urine Yellow (Yellow); Glucose, Dipstick Normal (Normal); Ketone-Dipstick Negative (Negative); Leukocyte Esterase-Dipstick 500 /ul (Negative); Nitrite-Dipstick Positive (Negative); Occult Blood-Urine 25 /ul (Negative); Protein-Dipstick 30 mg/dl (Negative); Urine Bilirubin Dipstick Negative (Negative); Urine Clarity Sl. Cloudy (Clear); Urine Urobilinogen Normal (Normal); Urine pH 6.5 (5.0 - 8.0)
[2022-05-24 21:25] LABS: Red Blood Cells-Urine 5-10 SEEN /hpf (0-5); White Blood Cells 25-50 SEEN /hpf (0-5)
[2022-05-24 21:26] LABS: Amorphous Sediment 1+ URATE; Bacteria 1+ /hpf (None Seen); Yeast-Urine 0 SEEN /hpf (None Seen)
[2022-05-24 22:17] VITALS: BP 167/97; PULSE 111; RESP 18; TEMP 36.5; O2SAT 96
[2022-05-24] MEDS: Ceftriaxone 1 GM/50 ML BAG IV (22:42)
--- NOTE | 2022-05-24 22:53 | ED.RN ---
pt called for taxi for son.
--- NOTE | 2022-05-24 23:06 | RAD_ITS ---
STUDY: RADIOGRAPH- ABDOMEN/PELVIS REASON FOR EXAM: Female, 46 years old. right stent/stone TECHNIQUE: KUB COMPARISON: CT abdomen pelvis 7:59 PM same date FINDINGS: No evidence of free air or bowel obstruction. No suspicious mass effect or abnormal calcifications. Right-sided ureteral stent remains in place. Cholecystectomy and tubal ligation surgical clips remain visible. No acute osseous abnormality. RAD/Abdomen Single View IMPRESSION: No acute findings. Electronically Signed: Horace Orlando MD at 0:11 EDT Reading Location ID and State: [facility] / [place] Tel , Service support ,
[2022-05-24 23:08] VITALS: BP 154/104; PULSE 111; RESP 18; TEMP 36.6; O2SAT 97; BMI 42.1
[2022-05-24] MEDS: oxyCODONE 5 MG Tablet 10 MG PO (23:41)
[2022-05-24 23:45] LABS: Bedside Glucose 245 mg/dL (74-106)
[2022-05-25] MEDS: Lactated Ringers 1,000 ML 100 ML IV ×3 (00:12→21:03)
[2022-05-25] MEDS: 0.9% Saline Lock 10 ML Syringe IV ×2 (00:12→07:51)
[2022-05-25 05:08] VITALS: BP 102/61; PULSE 105; RESP 16; TEMP 37.3; O2SAT 96
[2022-05-25 05:52] LABS: Absolute Lymphocyte Count 1.16 X10^3/uL (0.83-4.51); Absolute Neutrophil Count 11.1 X10^3/uL (2.0-7.7); Basophil# 0.05 X10^3/uL; Basophil% 0.4 % (0-1); Eosinophil# 0.21 X10^3/uL; Eosinophils% 1.6 % (0-5); Hematocrit 35.9 % (37-47); Hemoglobin 11.6 g/dL (12.0-15.0); Lymphocyte # 1.16 X10^3/ul (0.83-4.51); Lymphocyte % 8.6 % (19-41); Mean Corp Hgb Conc 32.3 g/dL (32-36); Mean Corpuscular Volume 92.8 fL (81-99); Mean Platelet Vol. 10.3 fl (6.2-12.0); Monocyte# 0.96 X10^3/uL; Monocyte% 7.1 % (0-10); NRBC Flagged by Analyzer 0 % (0-5); Neutrophil # 11.08 X10^3/uL (2.7-7.7); Neutrophil % 81.9 % (47-70); Platelet Count 192 K/mm3 (150-450); RBC Distribution Width CV 13.1 % (11.6-14.6); RBC Distribution Width SD 44.5 fl (35.1-43.9); Red Blood Count 3.87 M/mm3 (4.2-5.4); White Blood Count 13.5 K/mm3 (4.4-11.0)
[2022-05-25 06:12] LABS: Anion Gap 7 (5-15); BUN 13 mg/dL (7-18); Calcium,Total 8.2 mg/dL (8.5-10.1); Chloride 102 mmol/L (98-107); Creatinine, Serum 1.08 mg/dL (0.55-1.02); EST Glomerular Filtration Rate 58 mL/min (>60); Est Glom Filt Rate - Afr Amer 71 mL/min (>60); Estimated Creatinine Clearance 52.57 ml/min; Glucose 221 mg/dL (74-106); Potassium 4.1 mmol/L (3.5-5.1); Sodium Level 135 mmol/L (136-145)
[2022-05-25] MEDS: Ondansetron 4 MG/2 ML Vial IV ×2 (07:51→16:17)
[2022-05-25] MEDS: Ketorolac 30 MG/ML Syringe IV ×2 (07:52→16:17)
[2022-05-25] MEDS: Glimepiride 4 MG Tablet PO (07:59)
[2022-05-25] MEDS: metFORMIN HCl 1,000 MG Tablet 1000 MG PO ×2 (07:59→16:21)
[2022-05-25] MEDS: Loratadine 10 MG Tablet PO (08:00)
[2022-05-25] MEDS: Escitalopram Oxalate 10 MG Tablet 5 MG PO (08:00)
[2022-05-25 09:26] VITALS: BP 141/91; PULSE 93; RESP 18; TEMP 38; O2SAT 96
[2022-05-25] MEDS: Ciprofloxacin 400 MG/200 ML BAG 200 MG IV ×2 (10:01→21:03)
[2022-05-25 10:25] LABS: Bedside Glucose 317 mg/dL (74-106)
[2022-05-25] MEDS: Insulin Lispro 100 UNIT/ML INSULN.PEN SC (11:46)
--- NOTE | 2022-05-25 12:52 | CASEMGMT ---
Face to Face with patient for initial transition planning/care coordination assessment.?RN GALILEO introduced self and role at [facility], pt voices understanding.? Care providers, pharmacy,?and demographics verified. Admitting Dx: pyelonephritis PCP: Renata Specialists: none Preferred Pharmacy: [facility] Insurance: Radha HO Prescription Benefit:?yes Living Will/HPOA: none LNOK: spouse Ben Living Arrangements: Pt lives with her spouse and two adult sons with developmental disabilities in a camper on pt's mother's property. Pt has access to water and bathing facilities at mother's dog [employer] and water hoses. States she uses extension cords to the camper for electricity. States they have one space heater and added additional insulation this winter. Pt states they use food pantries for food and that she is not eligible for a food card. States they have applied for housing assistance through [employer] and [employer] but they have decided to stay in their camper due to there isn't housing for us. Pt helps her mom with the [employer] business. Transportation: pt drives and recently repaired her car DME: uses [employer]; has access to walker, grab bars, and shower chair at her moms if needed SNF/HHC: denies any previous providers. ? Plan: Return to her camper with support of her family. Will continue to monitor and assist with DC planning needs as identified. Radha Cason RN CM
--- NOTE | 2022-05-25 14:20 | NURSING ---
Call placed to Dr. Kyle regarding orders for bladder scan after voiding.
[2022-05-25 15:26] VITALS: BP 120/75; PULSE 85; RESP 18; TEMP 36.8; O2SAT 99
[2022-05-25] MEDS: Acetaminophen 325 MG Tablet 650 MG PO (16:18)
[2022-05-25 17:10] LABS: Bedside Glucose 133 mg/dL (74-106)
[2022-05-25] MEDS: Rizatriptan Benzoate 10 MG Tablet PO (19:37)
[2022-05-25 20:03] VITALS: BP 135/90; PULSE 87; RESP 16; TEMP 36.9; O2SAT 97
[2022-05-25] MEDS: Famotidine 20 MG Tablet PO (21:04)
[2022-05-25] MEDS: Losartan Potassium 50 MG Tablet PO (21:04)
[2022-05-25] MEDS: Gabapentin 100 MG Capsule PO (21:08)
[2022-05-25 21:36] LABS: Bedside Glucose 149 mg/dL (74-106)
--- NOTE | 2022-05-26 03:55 | HP.PCM_ITS ---
HPI - General General Date of Admission: 05/24/22 Date of Service: 05/25/22 Chief Complaint: abdominal pain and chills HPI Narrative Late documentation, patient was seen at 5:30pm on 05/25/22. UCHE KINCAID, is a 46 F who presented to the emergency room with extreme chills, unable to warm up, with right sided flank and abdominal pain. No dysuria, urgency, frequency or hematuria. No objective fever, but there was subjective. Nausea, no vomiting. She was worried her stone issues were returning as the pain was the same, so she came into the ER. Now feeling better except having migraine and nausea. The flank pain has improved. Still with some chills, but better and low grade fever. Pain resolved. She is homeless, and her car broke down, reports that it has now been repaired. [facility] Medical History (Updated 05/26/22 @ 04:[address] Halima Kyle MD) Anemia Anxiety Anxiety and depression Bilateral carpal tunnel syndrome Bipolar disorder Blister Chronic low back pain Degenerative arthritis Depression Diabetes Dietary restriction Difficulty chewing Ectopic Former smoker Former smoker Gastric reflux H/O ETOH abuse History of echocardiogram History of edema History of pain when walking History of renal disease History of stress test History of ulceration Homelessness Hydronephrosis Hypertension Hypertension Injury of head and neck Neuropathy Open wound of both lower extremities Osteoarthritis Paresthesia of upper extremity PTSD (post-traumatic stress disorder) Pyelonephritis Pyelonephritis of right kidney Renal stones Right ureteral stone Shortness of breath on exertion Syncope Type 2 diabetes mellitus Urticaria Home Medications losartan 50 mg tablet 50 mg PO QHS blood pressure 11/25/21 [History Last Taken 05/23/22] escitalopram oxalate 5 mg tablet (Lexapro) 5 mg PO QHS depression 01/10/22 [History Last Taken 05/23/22] famotidine 20 mg tablet 20 mg PO QHS reflux 01/10/22 [History Last Taken 05/23/22] fexofenadine 60 mg tablet (Najma Allergy) 60 mg PO BID allergies 01/10/22 [History Last Taken 05/24/22] gabapentin 100 mg capsule 100 mg PO QHS neuropathy 01/10/22 [History Last Taken 05/23/22] glimepiride 4 mg tablet 4 mg PO QAM diabetes 01/10/22 [History Last Taken 05/24/22] metformin 1,000 mg tablet 1,000 mg PO BID diabetes 01/10/22 [History Last Taken 05/24/22] sumatriptan succinate 100 mg tablet (Imitrex) See Rx Instructions PO .COMPLEX Check with primary doctor 01/10/22 [History Last Taken Unknown] oxycodone-acetaminophen 5 mg-325 mg tablet (Percocet) 1 tab PO Q8H PRN pain 3 days #14 tabs 02/19/22 [Rx Last Taken Unknown] Allergy/AdvReac Type Severity Reaction Status Date / Time Penicillins Allergy Hives Verified 05/24/22 19:27 venom-honey bee Allergy Anaphylaxis Verified 05/24/22 19:27 [bee venom (honey bee)] Family History Other Alcoholism Anxiety Arthritis Asthma Cancer Cervical cancer Depression Diabetes Heart disease Hypertension Myocardial infarction Ovarian cancer Surgical History History of tubal ligation Hx of cholecystectomy Hx of cystoscopy Social History Smoking Status: Former smoker alcohol intake: current alcohol intake frequency: holidays/special occasions only substance use type: does not use what type of physical activity do you participate in: walking ROS Constitutional Constitutional: Reports body ache(s), chills, fever(s), headache(s) and poor appetite Eyes Eyes: Reports systems reviewed and no addt'l complaints, except as documented ENT HEENT: Reports systems reviewed and no addt'l complaints, except as documented Cardiovascular Cardiovascular: Reports abdominal pain and nausea; Denies chest pain, diaphoresis, dizziness, dyspnea, lightheadedness or vomiting Respiratory/Chest Respiratory/Chest: Denies chest congestion, chest tightness, cough or difficulty clearing secretions Gastrointestinal Gastrointestinal: Reports abdominal pain, cramping and nausea; Denies diarrhea or vomiting Genitourinary Genitourinary: Reports flank pain and low back pain; Denies difficulty uri nating, dysuria, hematuria, urinary frequency, urinary hesitancy or urinary urgency Musculoskeletal Musculoskeletal: Reports muscle cramps; Denies difficulty walking Integumentary Integumentary: Reports systems reviewed and no addt'l complaints, except as documented Neurologic Neurologic: Reports headache(s) Psychiatric Psychiatric: Reports systems reviewed and no addt'l complaints, except as documented Endocrine Endocrinology: Reports systems reviewed and no addt'l complaints, except as documented Hematologic/Lymphatic Hematologic/Lymphatic: Reports systems reviewed and no addt'l complaints, except as documented Allergic/Immunologic Allergic/Immunologic: Reports systems reviewed and no addt'l complaints, except as documented Vital Signs Vital Signs Vital Signs: 05/25/22 05:08 05/25/22 09:26 05/25/22 09:00 Temperature 99.1 F 100.4 F H Temperature Source Oral Oral Pulse Rate 105 H 93 Respiratory Rate 16 18 Respiratory Effort Normal Non-Labored Respiratory Depth Normal Respiratory Pattern Normal Blood Pressure 102/61 141/91 H Blood Pressure Mean 74 107 Pulse Ox 96 96 Oxygen Delivery Method Room Air Room Air Room Air 05/25/22 15:26 05/25/22 14:00 05/25/22 20:03 Temperature 98.2 F Temperature Source Oral Pulse Rate 85 Respiratory Rate 18 Respiratory Effort Normal Non-Labored Normal Non-Labored Respiratory Depth Normal Normal Respiratory Pattern Normal Normal Blood Pressure 120/75 Blood Pressure Mean 90 Pulse Ox 99 Oxygen Delivery Method Room Air Room Air Room Air 05/25/22 20:03 Temperature 98.4 F Temperature Source Oral Pulse Rate 87 Respiratory Rate 16 Respiratory Effort Respiratory Depth Respiratory Pattern Blood Pressure 135/90 H Blood Pressure Mean 105 Pulse Ox 97 Oxygen Delivery Method Room Air Weight Weight: 104.6 kg Body Mass Index (BMI) 42.1 Physical Exam Const alert, oriented x3 and no apparent distress General Appearance: cooperative and comfortable HEENT normocephalic, head/scalp atraumatic, hearing grossly normal bilaterally, external ears normal and external nose normal Eyes General Eye: normal appearance of both eyes Neck supple General: normal visual inspection and trachea midline Lymph Lymphatic: no lymphedema noted Chest inspection of chest normal Resp normal respiratory effort, normal air movement, no retractions and no use of accessory muscles Cardio regular rhythm Cardio Narrative: tachycardic earlier GI normal to inspection, nondistended, normoactive bowel sounds, soft to palpation, non-tender and non-distended no CVA tenderness Narrative: bladder scan PVR 16cc Back/Spine no CVA tenderness Extremity normal to inspection Skin no rashes or lesions noted Neuro oriented x3 and CN's II-XII intact bilaterally Psych mental status grossly normal, thought process normal, cooperative, affect normal and speech normal Results Lab / Micro Data Result Diagrams: 05/25/22 05:30 05/25/22 05:30 Labs: Laboratory Results - last 24 hr 05/25/22 05:30: WBC 13.5 H, RBC 3.87 L, Hgb 11.6 L, Hct 35.9 L, MCV 92.8, MCH 30.0, MCHC 32.3, RDW Std Deviation 44.5 H, RDW Coeff of Johnnie 13.1, Plt Count 192, MPV 10.3, Immature Gran % (Auto) 0.400, Neut % (Auto) 81.9 H, Lymph % (Auto) 8.6 L, [place] % (Auto) 7.1, Eos % (Auto) 1.6, Baso % (Auto) 0.4, Absolute Neuts (auto) 11.1 H, Absolute Lymphs (auto) 1.16, Nucleated RBC % 0 05/25/22 05:30: Sodium 135 L, Potassium 4.1, Chloride 102, Carbon Dioxide 26.0, Anion Gap 7, BUN 13, Creatinine 1.08 H, Estim Creat Clear Calc 52.57, Est GFR (MDRD) Af Amer 71, Est GFR (MDRD) Non-Af 58 L, BUN/Creatinine Ratio 12.0, Glucose 221 H, Calcium 8.2 L 05/25/22 10:06: POC Glucose 317 H 05/25/22 16:49: POC Glucose 133 H 05/25/22 21:09: POC Glucose 149 H Micro: Microbiology 05/24/22 21:00 Urine, Clean Catch Urine Culture - Preliminary Streptococcus agalactiae (B) Assessment & Plan Assessment/Plan (1) Pyelonephritis of right kidney: PLAN: given the patient's situation with homelessness, chills and lack of follow up for stent removal, she was admitted for antibiotics and supportive care. on day one, her WBC increased despite antibiotic coverage and fluids. her antibiotics were changed, and objective improvement was seen. imaging shows no retained stone, plan will be for repeat WBC this am, and if ok, she will be discharged for follow up today in the office for stent removal, continued antibiotics (2) Migraine: PLAN: Imitrex started, continue Tylenol as ordered (3) Diabetes: QUALIFIERS: Diabetes mellitus type: type 2 Diabetes mellitus skilled nursing insulin use: without lobsterman use Diabetes mellitus complication status: with unspecified complications Qualified Code(s): E11.8 - Type 2 diabetes mellitus with unspecified complications PLAN: continue sliding scale and her home metformin
[2022-05-26 05:00] VITALS: BP 154/99; PULSE 90; RESP 17; TEMP 36.8; O2SAT 94
[2022-05-26 06:25] LABS: Bedside Glucose 166 mg/dL (74-106)
[2022-05-26 07:00] LABS: Absolute Lymphocyte Count 1.41 X10^3/uL (0.83-4.51); Absolute Neutrophil Count 7.1 X10^3/uL (2.0-7.7); Basophil# 0.04 X10^3/uL; Basophil% 0.4 % (0-1); Eosinophil# 0.24 X10^3/uL; Eosinophils% 2.5 % (0-5); Hematocrit 35.7 % (37-47); Hemoglobin 11.4 g/dL (12.0-15.0); Lymphocyte # 1.41 X10^3/ul (0.83-4.51); Lymphocyte % 14.9 % (19-41); Mean Corp Hgb Conc 31.9 g/dL (32-36); Mean Corpuscular Volume 93.9 fL (81-99); Mean Platelet Vol. 10.6 fl (6.2-12.0); Monocyte# 0.63 X10^3/uL; Monocyte% 6.7 % (0-10); NRBC Flagged by Analyzer 0 % (0-5); Neutrophil # 7.08 X10^3/uL (2.7-7.7); Platelet Count 193 K/mm3 (150-450); RBC Distribution Width CV 12.9 % (11.6-14.6); RBC Distribution Width SD 44.3 fl (35.1-43.9); White Blood Count 9.5 K/mm3 (4.4-11.0)
--- NOTE | 2022-05-26 08:40 | DCINST_ITS ---
Discharge Instructions Diet Discharge Diet: Carb Control Diet Activity Discharge Activity: Return to Normal Activity May resume sexual activity in: No Restrictions Dressing / Incision Call your doctor if you observe: Fever of 101 or Higher, Inability to urinate and Inability to have a bowel movement Follow Up Care Please Follow Up With: Halima Kyle MD When: today for cystoscopy and stent removal at 11:30 Test Results: Test results from this visit will be discussed in further detail at your follow- up appointment, if applicable. Discharge Plan Admission Admit Date/Time: 05/24/22 23:01 Attending Provider: Halima Kyle Primary Care Provider: Brett Yanez Discharge Orders/Prescriptions Prescriptions: New ciprofloxacin HCl [ciprofloxacin HCl] 500 mg tablet 500 mg PO BID Qty: 5 0RF Continued losartan 50 mg tablet 50 mg PO QHS fexofenadine [Najma Allergy] 60 mg tablet 60 mg PO BID sumatriptan succinate [Imitrex] 100 mg tablet See Rx Instructions PO .COMPLEX Rx Instructions: take 1 tab at onset of headache; if no relief, may repeat 1 tab after at least 2 hrs; max = 2 tabs/24 hrs PO famotidine 20 mg tablet 20 mg PO QHS metformin 1,000 mg tablet 1,000 mg PO BID glimepiride 4 mg tablet 4 mg PO QAM Rx Instructions: administer with breakfast gabapentin 100 mg capsule 100 mg PO QHS escitalopram oxalate [Lexapro] 5 mg tablet 5 mg PO QHS oxycodone-acetaminophen [Percocet] 5-325 mg tablet 1 tab PO Q8H PRN (Reason: pain) 3 Days Qty: 14 0RF Referrals / Follow Up: Brett Yanez MD [Primary Care Provider] - Halima Kyle MD [Med Staff - Active Staff] - 05/26/22 11:30 am (Please see Dr. Kyle in office today 05/26 on 1130 ) Disposition Disposition (needs filled in before D/C Order can be placed): Home, Self Care
[2022-05-26 08:55] VITALS: BP 147/90; PULSE 97; RESP 18; TEMP 37.1; O2SAT 95
== END 2022-05-26 09:18 | disposition home or self-care (01) | DRG 463 ==
LOC: ED 20:17 → MS3 05-25 07:09
PROVIDERS: Physician Assistant; Admitting Provider Urology; Emergency Provider Student in an Organized Health Care Education/Training Program; PCP Internal Medicine; Visit Provider Urology
DX: N12 Tubulo-interstitial nephritis, not specified as acute or chronic (principal); E11.40 Type 2 diabetes mellitus with diabetic neuropathy, unspecified; F31.9 Bipolar disorder, unspecified; I10 Essential (primary) hypertension; G43.909 Migraine, unspecified, not intractable, without status migrainosus; Z87.891 Personal history of nicotine dependence; G89.29 Other chronic pain; M54.50 Low back pain, unspecified; Z96.0 Presence of urogenital implants; Z79.84 Long term (current) use of oral hypoglycemic drugs
CPT/HCPCS: 36415; 74018; 74176; 80048; 81001; 82962; 85025; 87077; 87086; 87088; 87186; 99284; J7030; J7050; J7120; A4216; J0744; J2405

== ENCOUNTER 2022-07-06 05:06 | Emergency (ER) | payer MEDICAID, SELFPAY ==
[2022-07-06 05:07] VITALS: BP 178/119; PULSE 119; RESP 20; TEMP 36.8; O2SAT 97; BMI 41.9
--- NOTE | 2022-07-06 05:58 | EX.ED.VIS.HA ---
HPI History of Present Illness Chief Complaint: Headache Detail of Chief Complaint: History of migraines. Similar. Informant: patient Onset/Context/Timing Onset: Days Context: Gradual Timing: Continuous Current Severity: Moderate Maximum Severity: Moderate Associated Symptoms/Injury Associated Symptoms: Positive for Nausea, Vomiting and Photophobia; Negative for Fever Injury - [place]: Negative for Direct Trauma, Fall or Assault Narrative Narrative: 46-year-old female history of diabetes, bipolar and migraine headaches. States his headache started 4 days ago started in her upper back and moved to her head. States is a throbbing. Associated light sensitivity. Associated nausea and vomiting. No fever. No trauma. No blood thinners. This is similar to prior migraines. Prior similar symptoms: Yes Recent Illness/Hospitalization: No PFSH PFSH Medical History Anemia Anxiety Anxiety and depression Bilateral carpal tunnel syndrome Bipolar disorder Blister Chronic low back pain Degenerative arthritis Depression Diabetes Dietary restriction Difficulty chewing Ectopic Former smoker Former smoker Gastric reflux H/O ETOH abuse History of echocardiogram History of edema History of pain when walking History of renal disease History of stress test History of ulceration Homelessness Hydronephrosis Hypertension Hypertension Injury of head and neck Neuropathy Open wound of both lower extremities Osteoarthritis Paresthesia of upper extremity PTSD (post-traumatic stress disorder) Pyelonephritis Pyelonephritis of right kidney Renal stones Right ureteral stone Shortness of breath on exertion Syncope Type 2 diabetes mellitus Urticaria Home Medications losartan 50 mg tablet 50 mg PO QHS blood pressure 11/25/21 [History Last Taken 05/23/22] escitalopram oxalate 5 mg tablet (Lexapro) 5 mg PO QHS depression 01/10/22 [History Last Taken 05/23/22] famotidine 20 mg tablet 20 mg PO QHS reflux 01/10/22 [History Last Taken 05/23/22] fexofenadine 60 mg tablet (Najma Allergy) 60 mg PO BID allergies 01/10/22 [History Last Taken 05/24/22] gabapentin 100 mg capsule 100 mg PO QHS neuropathy 01/10/22 [History Last Taken 05/23/22] glimepiride 4 mg tablet 4 mg PO QAM diabetes 01/10/22 [History Last Taken 05/24/22] metformin 1,000 mg tablet 1,000 mg PO BID diabetes 01/10/22 [History Last Taken 05/24/22] sumatriptan succinate 100 mg tablet (Imitrex) See Rx Instructions PO .COMPLEX Check with primary doctor 01/10/22 [History Last Taken Unknown] oxycodone-acetaminophen 5 mg-325 mg tablet (Percocet) 1 tab PO Q8H PRN pain 3 days #14 tabs 02/19/22 [Rx Last Taken Unknown] ciprofloxacin HCl 500 mg tablet 500 mg PO BID #5 TABLETS 05/26/22 [Rx Last Taken Unknown] Allergy/AdvReac Type Severity Reaction Status Date / Time Penicillins Allergy Hives Verified 07/06/22 05:09 venom-honey bee Allergy Anaphylaxis Verified 07/06/22 05:09 [bee venom (honey bee)] Family History Other Alcoholism Anxiety Arthritis Asthma Cancer Cervical cancer Depression Diabetes Heart disease Hypertension Myocardial infarction Ovarian cancer Surgical History History of tubal ligation Hx of cholecystectomy Hx of cystoscopy Social History Smoking Status: Former smoker alcohol intake: current alcohol intake frequency: holidays/special occasions only substance use type: does not use what type of physical activity do you participate in: walking ROS ROS ED ROS Narrative Headache. Nausea vomiting. Photophobia. Review of Systems ROS Unobtainable: Denies due to encephalopathy Constitutional Constitutional ED: Denies chills or fever(s) Eyes Eyes: Denies blurry vision ENT ENT ED: Denies ear pain Cardiovascular Cardiovascular: Denies chest pain Respiratory/Chest Respiratory/Chest: Denies cough Gastrointestinal Gastrointestinal: Reports nausea and vomiting; Denies abdominal pain or diarrhea Genitourinary Genitourinary ED: Denies dysuria Musculoskeletal Musculoskeletal: Denies arthralgias Integumentary Denies abscess Neurologic Neurologic: Reports headache(s); Denies paresthesias or weakness Psychiatric Psychiatric: Denies anxiety Endocrine Endocrinology: Denies polydipsia Hematologic/Lymphatic Hematologic/Lymphatic: Denies easy bleeding Allergic/Immunologic Allergic/Immunologic ED: Denies mouth swelling or tongue swelling EXAM Physical Exam Narrative Exam Narrative: White female in a darkened room with sunglasses on. Vital signs are stable blood pressure elevated 170/119. She is in no distress. H EENT exam pupils round reactive light. His motions are intact. Normal speech. No facial droop. No signs of trauma to her face or scalp. Nontender. Neck nontender no meningismus. Able to touch chin to chest. Lungs clear to auscultation bilaterally. Heart regular rhythm rate about 110 no murmur. Chest nontender. Abdomen soft nontender. Moving all 4 extremities. 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 Normal dorsi plantarflexion. Neurologic exam normal. NIH is 0. Awake alert. Answering questions following commands. No focal motor deficits. Const Vital Signs: 07/06/22 05:07 Temperature 98.2 F Temperature Source Temporal Pulse Rate 119 H Respiratory Rate 20 H Blood Pressure 178/119 H Blood Pressure Mean 138 Pulse Ox 97 Oxygen Delivery Method Room Air Positive well nourished, well developed and obese; Negative for cachectic, contractures or unkempt General Appearance ED: well developed and NAD; Negative for unkempt, cachectic, contractures, cyanotic or diaphoretic Nutritional Appearance: obese; Negative for cachectic HEENT Reports normocephalic and moist mucous membranes; Denies dry mucous membranes atraumatic; Negative for trauma, tenderness, temporal artery tenderness or vesicular rash Face and Sinus: Negative for sinus tenderness Mouth ED: No dry mucous membranes Mouth: No dry mucous membranes Eyes PERRL and EOMs intact bilaterally General Eye ED: Negative for pale conjunctiva or scleral icterus Neck no lymphadenopathy, supple, no meningeal signs and no JVD General: Negative for tenderness Resp normal respiratory effort and clear to auscultation bilaterally Effort and Inspection: Negative for retractions Auscultation: Negative for rales, rhonchi or wheezes Cardio regular rhythm, S1 normal heart sound, S2 normal heart sound and no murmurs; Negative for regular rate Rate: tachycardic Rhythm: Negative for abnormal rhythm GI non-tender and non-distended Auscultation: normoactive bowel sounds Palpation: soft; Negative for firm or tender Back/Spine no CVA tenderness General Back: Negative for CVA tenderness Cervical Spine: Negative for cervical spine tenderness Thoracic Spine / Upper Back: Negative for thoracic spinal tenderness Lumbar Spine / Lower Back: Negative for lumbar spinal tenderness Extremity normal to inspection and full ROM; Negative for normal capillary refill General Extremety ED: Negative for edema or tenderness General Extremity: Negative for edema Neuro oriented x3, CN's II-XII intact bilaterally and no sensory deficits noted Sensorium / Orientation: awake, alert, oriented to person, oriented to place and oriented to time; Negative for orientation impaired, lethargic or stuporous Coordination / Balance: [id number] test normal Speech: speech normal Motor Exam: strength 5/5 throughout Comatose: Negative for other Psych mental status grossly normal Appearance: Negative for unkempt Attitude: No agitated Mood & Affect: Negative for depressed, anxious or tearful Skin General Skin Exam: elasticity normal Lesions: no lesions Rashes: no rashes Trauma: Negative for abrasion MDM MDM MDM Narrative Medical decision making narrative: 46-year-old female with migraine headaches with a migraine headache. Exam otherwise benign. States her blood sugars have been running around 100. She will be treated with IV fluids, Toradol, Reglan and Benadryl and reassess. Her neurologic exam is normal I do not think she needs imaging at this time. She has had extensive imaging in the past including CAT scans and MRIs. She has no focal motor deficits. Repeat exam patient is doing well at 7:42 AM. Headache resolving. Neurologic exam remains normal. Clinically she looks better and states she is feeling much better and feels comfortable being discharged home. I do not feel that she needs any testing or imaging and she is comfortable being discharged home. History & Record Review Discussion w/independent historian: Patient Additional record(s) reviewed:: Prior inpatient record, Prior outpatient record, Prior ED visit and Prior labs Discharge Plan Triage Chief Complaint: Headache ED Provider: Javed Alvarado Dx/Rx/DC Orders Clinical Impression: Migraine, History of diabetes mellitus Instructions: ED, Migraine (Classical) Prescriptions: No Action losartan 50 mg tablet 50 mg PO QHS fexofenadine [Najma Allergy] 60 mg tablet 60 mg PO BID sumatriptan succinate [Imitrex] 100 mg tablet See Rx Instructions PO .COMPLEX Rx Instructions: take 1 tab at onset of headache; if no relief, may repeat 1 tab after at least 2 hrs; max = 2 tabs/24 hrs PO famotidine 20 mg tablet 20 mg PO QHS metformin 1,000 mg tablet 1,000 mg PO BID glimepiride 4 mg tablet 4 mg PO QAM Rx Instructions: administer with breakfast gabapentin 100 mg capsule 100 mg PO QHS escitalopram oxalate [Lexapro] 5 mg tablet 5 mg PO QHS oxycodone-acetaminophen [Percocet] 5-325 mg tablet 1 tab PO Q8H PRN (Reason: pain) 3 Days Qty: 14 0RF ciprofloxacin HCl [ciprofloxacin HCl] 500 mg tablet 500 mg PO BID Qty: 5 0RF Primary Care Provider: Brett Yanez Referrals: Brett Yanez MD [Primary Care Provider] - 3-5 Days if not improving Activity Restrictions/Additional Instructions: Plenty of fluids and rest. Motrin and Tylenol for pain. Follow-up with your doctor if not improving or return if worse. Disposition Disposition: Home, Self Care
[2022-07-06] MEDS: 0.9% Normal Saline 1,000 ML 1000 ML IV (06:08)
[2022-07-06] MEDS: Ketorolac 30 MG/ML Syringe IV (06:08)
[2022-07-06] MEDS: DiphenhydrAMINE 50 MG/ML Syringe IV (06:09)
[2022-07-06] MEDS: Metoclopramide 10 MG/2 ML Vial IV (06:11)
[2022-07-06 07:55] VITALS: BP 117/67; PULSE 97; RESP 16; O2SAT 100
== END 2022-07-06 07:55 | disposition home or self-care (01) ==
PROVIDERS: Emergency Provider Emergency Medicine; PCP Internal Medicine; Visit Provider Emergency Medicine
DX: G43.909 Migraine, unspecified, not intractable, without status migrainosus (principal); E11.40 Type 2 diabetes mellitus with diabetic neuropathy, unspecified; Z87.891 Personal history of nicotine dependence; I10 Essential (primary) hypertension; F32.A Depression, unspecified; Z79.899 Other long term (current) drug therapy; K21.9 Gastro-esophageal reflux disease without esophagitis; Z79.84 Long term (current) use of oral hypoglycemic drugs
CPT/HCPCS: 99283; J7030; A4216

== ENCOUNTER 2022-07-07 22:58 | Emergency (ER) | payer MEDICAID, SELFPAY ==
[2022-07-07 22:59] VITALS: BP 190/118; PULSE 111; RESP 16; TEMP 36.6; O2SAT 100; BMI 41.7
--- NOTE | 2022-07-07 23:19 | CT_ITS ---
INDICATION: headache, vomiting EXAMINATION: CT BRAIN - CT Head or Brain W/O Contrast Injection TECHNIQUE: Multiple axial images were obtained of the head with sagittal and coronal reconstructed images. Individualized dose optimization techniques were used for this CT. IV contrast dosage and agent: None. COMPARISON: 05/11/2019 CT. FINDINGS: BRAIN PARENCHYMA: No evidence of an acute infarct or intracranial hemorrhage. No evidence of a mass. CSF SPACES: The ventricles, sulci and subarachnoid cisterns are appropriate for age. CALVARIUM, SKULL BASE, PARANASAL SINUSES AND MASTOID AIR CELLS: No fracture. Mastoid air cells are clear. Stable opacification of the right maxillary sinus. ORBITS: The globes, extraocular muscles, optic nerves and retrobulbar fat are unremarkable. CT/Brain/Head without Contrast IMPRESSION: 1. No acute intracranial abnormality. 2. Chronic right maxillary sinus disease. Electronically Signed: Francis Samll DO at 0:14 EDT ,
--- NOTE | 2022-07-07 23:20 | EX.ED.DYSGE1 ---
HPI History of Present Illness Chief Complaint: General Illness Informant: patient Narrative Narrative: Patient states she has had a headache for 5 days it is bitemporal/parietal, started after her back was hurting and spasming. Has a history of migraines, she was here about 36 hours ago for the same thing, she tells me this is a headache that is different and worse than anything she has ever had in the past, although when she was here at her prior visit, the documented history is different. She felt better after migraine medications, she states she slept the majority of the day, the headache came back today and now her left ear hurts. She has been vomiting off and on all day and not able to keep any fluids or medication down. She denies any other new symptoms. [facility] Medical History Anemia Anxiety Anxiety and depression Bilateral carpal tunnel syndrome Bipolar disorder Blister Chronic low back pain Degenerative arthritis Depression Diabetes Dietary restriction Difficulty chewing Ectopic Former smoker Former smoker Gastric reflux H/O ETOH abuse History of echocardiogram History of edema History of pain when walking History of renal disease History of stress test History of ulceration Homelessness Hydronephrosis Hypertension Hypertension Injury of head and neck Neuropathy Open wound of both lower extremities Osteoarthritis Paresthesia of upper extremity PTSD (post-traumatic stress disorder) Pyelonephritis Pyelonephritis of right kidney Renal stones Right ureteral stone Shortness of breath on exertion Syncope Type 2 diabetes mellitus Urticaria Home Medications losartan 50 mg tablet 50 mg PO QHS blood pressure 11/25/21 [History Last Taken 05/23/22] escitalopram oxalate 5 mg tablet (Lexapro) 5 mg PO QHS depression 01/10/22 [History Last Taken 05/23/22] famotidine 20 mg tablet 20 mg PO QHS reflux 01/10/22 [History Last Taken 05/23/22] fexofenadine 60 mg tablet (Najma Allergy) 60 mg PO BID allergies 01/10/22 [History Last Taken 05/24/22] gabapentin 100 mg capsule 100 mg PO QHS neuropathy 01/10/22 [History Last Taken 05/23/22] glimepiride 4 mg tablet 4 mg PO QAM diabetes 01/10/22 [History Last Taken 05/24/22] metformin 1,000 mg tablet 1,000 mg PO BID diabetes 01/10/22 [History Last Taken 05/24/22] sumatriptan succinate 100 mg tablet (Imitrex) See Rx Instructions PO .COMPLEX Check with primary doctor 01/10/22 [History Last Taken Unknown] oxycodone-acetaminophen 5 mg-325 mg tablet (Percocet) 1 tab PO Q8H PRN pain 3 days #14 tabs 02/19/22 [Rx Last Taken Unknown] ciprofloxacin HCl 500 mg tablet 500 mg PO BID #5 TABLETS 05/26/22 [Rx Last Taken Unknown] metoclopramide HCl 10 mg tablet 10 mg PO Q6H PRN nausea or migraine #10 tabs 07/08/22 [Rx Last Taken Unknown] Allergy/AdvReac Type Severity Reaction Status Date / Time Penicillins Allergy Hives Verified 07/07/22 23:01 venom-honey bee Allergy Anaphylaxis Verified 07/07/22 23:01 [bee venom (honey bee)] Family History Other Alcoholism Anxiety Arthritis Asthma Cancer Cervical cancer Depression Diabetes Heart disease Hypertension Myocardial infarction Ovarian cancer Surgical History History of tubal ligation Hx of cholecystectomy Hx of cystoscopy Social History Smoking Status: Former smoker alcohol intake: current alcohol intake frequency: holidays/special occasions only substance use type: does not use what type of physical activity do you participate in: walking ROS ROS ED Constitutional Constitutional ED: Denies chills or fever(s) Eyes Eyes: Reports photophobia; Denies blurry vision or diplopia ENT ENT ED: Reports ear pain left; Denies sore throat Cardiovascular Cardiovascular: Denies chest pain or palpitations Respiratory/Chest Respiratory/Chest: Denies cough or dyspnea Gastrointestinal Gastrointestinal: Reports nausea and vomiting; Denies abdominal pain or diarrhea Genitourinary Genitourinary ED: Denies dysuria or urinary frequency Musculoskeletal Musculoskeletal: Reports back pain; Denies myalgias Integumentary Denies abscess or rash Neurologic Neurologic: Reports headache(s); Denies paresthesias or weakness EXAM Physical Exam Const Vital Signs: 07/07/22 22:59 07/08/22 00:37 Temperature 97.8 F Temperature Source Temporal Pulse Rate 111 H Respiratory Rate 16 Blood Pressure 190/118 H 159/76 H Blood Pressure Mean 142 103 Pulse Ox 100 Oxygen Delivery Method Room Air HEENT Reports normocephalic and moist mucous membranes HEENT Narrative: Left TM erythematous not bulging, EAC normal. No periauricular lymphadenopathy. Right TM and EAC normal. atraumatic Eyes PERRL, EOMs intact bilaterally and conjunctivae normal Eyes Narrative: photophobia Neck no lymphadenopathy, supple and no meningeal signs Resp normal respiratory effort and clear to auscultation bilaterally GI non-tender and non-distended Palpation: soft Extremity normal to inspection and full ROM Neuro oriented x3 and CN's II-XII intact bilaterally Sensorium / Orientation: awake and alert Speech: speech normal Gait (Neuro): normal gait Motor Exam: strength 5/5 throughout Psych mental status grossly normal Skin Lesions: no lesions Rashes: no rashes MDM MDM MDM Narrative Medical decision making narrative: When she was here prior, her blood pressure was 170 now it is 190/118. She did not have imaging, I am going to image her brain now to rule out subarachnoid hemorrhage, I am at a low suspicion of that but I am going to treat her blood pressure empirically while I also treat her symptoms, for now Reglan and IV fluids. Also we will check her metabolic panel/renal function, which was last checked about 1.5 months ago and those results are noted, as well as her previous creatinine levels. CT images appear normal, without evidence of subarachnoid hemorrhage, radiology in agreement and I agree with their interpretation. Chemistry/renal function normal except for glucose 250s, patient was initially treated with IV fluids, Reglan, and labetalol since her blood pressure was so high 190/118. On reevaluation after the tests resulted, she is feeling better still a little bit of a dull headache but definitely much improved, blood pressure down to 159/76. We will give her a dose of Toradol prior to discharge. She missed her blood pressure medication only for today, it was elevated when she was seen the other day and had not missed it, I advised close outpatient follow-up for reevaluation of her blood pressure which may, or may not, be contributing to this headache. History & Record Review Additional record(s) reviewed:: Prior ED visit and Prior labs Lab Data Attestation: I reviewed the patient's lab results. Labs: Laboratory Results - last 24 hr 05/02/23 23:30 Sodium 136 Potassium 4.0 Chloride 103 Carbon Dioxide 27.0 Anion Gap 6 BUN 11 Creatinine 0.90 Estim Creat Clear Calc 63.09 Est GFR (MDRD) Af Amer 87 Est GFR (MDRD) Non-Af 72 BUN/Creatinine Ratio 12.2 Glucose 256 H Calcium 8.9 Radiography Diagnostic Testing: Clinical Impression(s) from Imaging Studies Brain CT 07/07/22 23:19 IMPRESSION: 1. No acute intracranial abnormality. 2. Chronic right maxillary sinus disease. Electronically Signed: Francis Small DO at 0:14 EDT , Discharge Plan Triage Chief Complaint: General Illness ED Provider: Daniel Melo Dx/Rx/DC Orders Clinical Impression: Migraine, Accelerated hypertension Instructions: Controlling High Blood Pressure Prescriptions: New metoclopramide HCl [metoclopramide HCl] 10 mg tablet 10 mg PO Q6H PRN (Reason: nausea or migraine) Qty: 10 0RF No Action losartan 50 mg tablet 50 mg PO QHS fexofenadine [Najma Allergy] 60 mg tablet 60 mg PO BID sumatriptan succinate [Imitrex] 100 mg tablet See Rx Instructions PO .COMPLEX Rx Instructions: take 1 tab at onset of headache; if no relief, may repeat 1 tab after at least 2 hrs; max = 2 tabs/24 hrs PO famotidine 20 mg tablet 20 mg PO QHS metformin 1,000 mg tablet 1,000 mg PO BID glimepiride 4 mg tablet 4 mg PO QAM Rx Instructions: administer with breakfast gabapentin 100 mg capsule 100 mg PO QHS escitalopram oxalate [Lexapro] 5 mg tablet 5 mg PO QHS oxycodone-acetaminophen [Percocet] 5-325 mg tablet 1 tab PO Q8H PRN (Reason: pain) 3 Days Qty: 14 0RF ciprofloxacin HCl [ciprofloxacin HCl] 500 mg tablet 500 mg PO BID Qty: 5 0RF Primary Care Provider: Brett Yanez Referrals: Brett Yanez MD [Primary Care Provider] - As soon as possible Activity Restrictions/Additional Instructions: Follow-up with your doctor when you are able, for reevaluation of your blood pressure, which may be contributing to these headaches. You were in the 170s during your prior visit, when you had not missed any of your blood pressure medication. It was in the 190s today but you missed the dose earlier today, we got you down to 159/76. Disposition Disposition: Home, Self Care
[2022-07-07] MEDS: 0.9% Normal Saline 1,000 ML 999 ML IV (23:35)
[2022-07-07] MEDS: Metoclopramide 10 MG/2 ML Vial 5 MG IV (23:36)
[2022-07-07] MEDS: Labetalol (Prefilled) 20 MG/4 ML IV (23:36)
[2022-07-07 23:53] LABS: Anion Gap 6 (5-15); BUN 11 mg/dL (7-18); BUN/Creat Ratio 12.2 RATIO (10-20); Calcium,Total 8.9 mg/dL (8.5-10.1); Chloride 103 mmol/L (98-107); EST Glomerular Filtration Rate 72 mL/min (>60); Est Glom Filt Rate - Afr Amer 87 mL/min (>60); Estimated Creatinine Clearance 63.09 ml/min; Glucose 256 mg/dL (74-106); Sodium Level 136 mmol/L (136-145)
[2022-07-08 00:37] VITALS: BP 159/76
[2022-07-08] MEDS: Ketorolac 15 MG/ML Vial IV (00:39)
== END 2022-07-08 01:11 | disposition home or self-care (01) ==
PROVIDERS: Emergency Provider Emergency Medicine; PCP Internal Medicine; Visit Provider Emergency Medicine
DX: G43.909 Migraine, unspecified, not intractable, without status migrainosus (principal); E11.40 Type 2 diabetes mellitus with diabetic neuropathy, unspecified; Z87.891 Personal history of nicotine dependence; I10 Essential (primary) hypertension; Z79.899 Other long term (current) drug therapy; K21.9 Gastro-esophageal reflux disease without esophagitis; F41.8 Other specified anxiety disorders; Z79.84 Long term (current) use of oral hypoglycemic drugs
CPT/HCPCS: 70450; 80048; 96361; 96374; 96375; 99283; J7030; A4216

== ENCOUNTER 2022-08-27 21:24 | Emergency (ER) | payer MEDICAID, SELFPAY ==
[2022-08-27 21:25] VITALS: BP 197/90; PULSE 118; RESP 18; TEMP 36.9; O2SAT 97; BMI 39.5
--- NOTE | 2022-08-27 21:30 | RAD_ITS ---
EXAM: XR CHEST, 1 VIEW CLINICAL INDICATION: COUGH TECHNIQUE: Frontal view of the chest. COMPARISON: May 23, 2021. FINDINGS: LUNGS AND PLEURAL SPACES: Unremarkable. No consolidation or edema. No pneumothorax. No effusion. HEART: Unremarkable. Cardiac silhouette not enlarged. MEDIASTINUM: Central airways and mediastinal contour are unremarkable. BONES/JOINTS: Unremarkable. SOFT TISSUES: Prior cholecystectomy. No other abnormalities. RAD/Chest 1 View (Portable) IMPRESSION: No radiographic evidence of acute cardiopulmonary disease. Electronically Signed: Nicanor Xiong MD at 21:57 EDT ,
--- NOTE | 2022-08-27 22:00 | ED.VIS.DYS ---
HPI History of Present Illness Chief Complaint: Cough PFSH [facility] Medical History Anemia Anxiety Anxiety and depression Bilateral carpal tunnel syndrome Bipolar disorder Blister Chronic low back pain Degenerative arthritis Depression Diabetes Dietary restriction Difficulty chewing Ectopic Former smoker Former smoker Gastric reflux H/O ETOH abuse History of echocardiogram History of edema History of pain when walking History of renal disease History of stress test History of ulceration Homelessness Hydronephrosis Hypertension Hypertension Injury of head and neck Neuropathy Open wound of both lower extremities Osteoarthritis Paresthesia of upper extremity PTSD (post-traumatic stress disorder) Pyelonephritis Pyelonephritis of right kidney Renal stones Right ureteral stone Shortness of breath on exertion Syncope Type 2 diabetes mellitus Urticaria Home Medications losartan 50 mg tablet 50 mg PO QHS blood pressure 11/25/21 [History Last Taken 05/23/22] escitalopram oxalate 5 mg tablet (Lexapro) 5 mg PO QHS depression 01/10/22 [History Last Taken 05/23/22] famotidine 20 mg tablet 20 mg PO QHS reflux 01/10/22 [History Last Taken 05/23/22] fexofenadine 60 mg tablet (Najma Allergy) 60 mg PO BID allergies 01/10/22 [History Last Taken 05/24/22] gabapentin 100 mg capsule 100 mg PO QHS neuropathy 01/10/22 [History Last Taken 05/23/22] glimepiride 4 mg tablet 4 mg PO QAM diabetes 01/10/22 [History Last Taken 05/24/22] metformin 1,000 mg tablet 1,000 mg PO BID diabetes 01/10/22 [History Last Taken 05/24/22] sumatriptan succinate 100 mg tablet (Imitrex) See Rx Instructions PO .COMPLEX Check with primary doctor 01/10/22 [History Last Taken Unknown] oxycodone-acetaminophen 5 mg-325 mg tablet (Percocet) 1 tab PO Q8H PRN pain 3 days #14 tabs 02/19/22 [Rx Last Taken Unknown] ciprofloxacin HCl 500 mg tablet 500 mg PO BID #5 TABLETS 05/26/22 [Rx Last Taken Unknown] cefdinir 300 mg capsule 300 mg PO BID #14 caps 07/08/22 [Rx Last Taken Unknown] metoclopramide HCl 10 mg tablet 10 mg PO Q6H PRN nausea or migraine #10 tabs 07/08/22 [Rx Last Taken Unknown] codeine sulfate 15 mg tablet 15 mg PO Q6H PRN cough 3 days #12 tabs 08/27/22 [Rx Last Taken Unknown] Allergy/AdvReac Type Severity Reaction Status Date / Time Penicillins Allergy Hives Verified 08/27/22 21:27 venom-honey bee Allergy Anaphylaxis Verified 08/27/22 21:27 [bee venom (honey bee)] Family History Other Alcoholism Anxiety Arthritis Asthma Cancer Cervical cancer Depression Diabetes Heart disease Hypertension Myocardial infarction Ovarian cancer Surgical History History of tubal ligation Hx of cholecystectomy Hx of cystoscopy Social History Smoking Status: Former smoker alcohol intake: current alcohol intake frequency: holidays/special occasions only substance use type: does not use what type of physical activity do you participate in: walking EXAM Physical Exam Const Vital Signs: 08/27/22 21:25 08/27/22 22:44 08/27/22 22:44 Temperature 98.4 F 98.4 F Temperature Source Temporal Temporal Pulse Rate 118 H 102 H Respiratory Rate 18 34 H Respiratory Effort Respiratory Depth Respiratory Pattern Blood Pressure 197/90 H 197/107 H Blood Pressure Mean 125 137 Pulse Ox 97 94 Oxygen Delivery Method Room Air Room Air Room Air 08/27/22 22:44 08/27/22 22:44 Temperature Temperature Source Pulse Rate Respiratory Rate 20 H Respiratory Effort Short of Breath Respiratory Depth Normal Respiratory Pattern Tachypnea Blood Pressure Blood Pressure Mean Pulse Ox 96 Oxygen Delivery Method Room Air Room Air MDM MDM MDM Narrative Medical decision making narrative: HISTORY OF PRESENT ILLNESS: 46-year-old female here for cough for 1 week. She notes shortness of breath as well. Notes posttussive emesis earlier today. Denies any nausea at this time denies any fever. Notes sick contact and her significant other. The patient denies recent surgery in the last 4 weeks or immobilization in the last 3 days, denies previous diagnosis of DVT or PE, hemoptysis, unilateral leg swelling or malignancy with treatment the last 6 months. No estrogen use noted. REVIEW OF SYSTEMS: Pertinent positives: Cough, shortness of breath Pertinent negatives: Syncope PHYSICAL EXAM: Nursing triage notes reviewed, Vital signs reviewed Constitutional: please see mdm HENT: MMM Eyes: Pupils equal round and reactive to light, Extraocular muscles intact Neck: No stridor, no JVD, full neck ROM Lungs: Clear to auscultation, No wheezing or rales. No increased work of breathing, no conversational dyspnea, no accessory muscle use, no nasal flaring. No respiratory distress noted Heart: Regular rate and rhythm, No murmurs, No rubs and No gallops, 2+ distal pulses (radial, femoral, posterior tibial) in all extremities Abdomen: Soft, there is no tenderness, rigidity, rebound or guarding, no obvious peritoneal signs, no palpable pulsatile abdominal masses, no auscultated abdominal bruit : No CVAT Extremities: No edema Neuro: No focal neurological deficits, cranial nerves II through XII intact, 5/5 strength in all extremities. Intact sensation to light touch in all extremities, 2+ reflexes bilateral patella tendons. Normal gait. No ataxia. Skin: No rash or lesions noted MEDICAL DECISION MAKING: Chief Complaint: Cough External records reviewed: Echocardiogram shows EF 65 Factors affecting care: Hypertension, type 2 diabetes, Social determinants of health: Former smoker History obtained from others: The patient's significant other Consults: none ALL IMAGES (IF OBTAINED) HAVE BEEN PERSONALLY REVIEWED AND INTERPRETED BY MYSELF. [facility] Narrative: Patient was initially hypertensive, tachycardic but afebrile and nontoxic-appearing. Coughing regularly. I considered the following differential diagnosis: Pneumonia, COVID, ACS, anemia, arrhythmia, CHF Initial EKG shows no evidence of myocardial ischemia. Troponin is negative. BNP negative for evidence of heart failure. No significant anemia or electrolyte abnormalities. Chest x-ray was negative for pneumonia. Unclear etiology likely viral. COVID is negative. The patient and/or family, caregivers express understanding. The patient and/or family, caregivers agrees with the plan. Total critical care time today provided was at least 0 minutes. This excludes separately billable procedures. Critical care time (if documented) is secondary to the patient having high probability of clinically significant/life threatening deterioration in the patient's condition which required my urgent intervention. Shared decision making: I will have a discussion with the patient and or visitors regarding risk/benefits of further testing or admission. They will be made aware of of the risk/benefits inherent in this decision they will be given the opportunity to voice understanding. Lab Data Attestation: I reviewed the patient's lab results. Lab results narrative: EKG with sinus tachycardia 105, normal axis, normal intervals, no STEMI CBC without leukocytosis, severe anemia, no thrombocytopenia. BMP without evidence of significant electrolyte abnormalities, no anion gap, no acute kidney injury. Troponin is negative, no evidence of myocardial ischemia BNP within normal limits suggesting no evidence of volume overload or heart failure Labs: Laboratory Results - last 24 hr 08/27/22 08/27/22 08/27/22 22:42 22:42 22:42 WBC 8.0 RBC 4.53 Hgb 13.6 Hct 40.5 MCV 89.4 MCH 30.0 MCHC 33.6 RDW Std Deviation 41.8 RDW Coeff of Johnnie 12.8 Plt Count 201 MPV 11.5 Sodium 134 L Potassium 3.9 Chloride 100 Carbon Dioxide 27.0 Anion Gap 7 BUN 16 Creatinine 1.16 H Estim Creat Clear Calc 48.95 Est GFR (MDRD) Af Amer 65 Est GFR (MDRD) Non-Af 54 L BUN/Creatinine Ratio 13.8 Glucose 363 H Calcium 9.3 Troponin I High Sens 10 B-Natriuretic Peptide 28.8 Radiography Diagnostic Testing: Clinical Impression(s) from Imaging Studies Chest X-Ray 08/27/22 21:30 IMPRESSION: No radiographic evidence of acute cardiopulmonary disease. Electronically Signed: Nicanor Xiong MD at 21:57 EDT Reading Location ID and State: [address] [place] [address] Tel , Service support , I have personally reviewed the patient's chest x-ray. Chest x-ray is unremarkable for pulmonary edema, pneumothorax, pneumonia or focal cardiopulmonary abnormality. Discharge Plan Triage Chief Complaint: Cough ED Provider: Garrett Hull Dx/Rx/DC Orders Clinical Impression: Cough, Viral URI with cough Instructions: ED Bronchitis, No Antibiotic (Adult) Prescriptions: New codeine sulfate 15 mg tablet 15 mg PO Q6H PRN (Reason: cough) 3 Days Qty: 12 0RF No Action losartan 50 mg tablet 50 mg PO QHS fexofenadine [Najma Allergy] 60 mg tablet 60 mg PO BID sumatriptan succinate [Imitrex] 100 mg tablet See Rx Instructions PO .COMPLEX Rx Instructions: take 1 tab at onset of headache; if no relief, may repeat 1 tab after at least 2 hrs; max = 2 tabs/24 hrs PO famotidine 20 mg tablet 20 mg PO QHS metformin 1,000 mg tablet 1,000 mg PO BID glimepiride 4 mg tablet 4 mg PO QAM Rx Instructions: administer with breakfast gabapentin 100 mg capsule 100 mg PO QHS escitalopram oxalate [Lexapro] 5 mg tablet 5 mg PO QHS oxycodone-acetaminophen [Percocet] 5-325 mg tablet 1 tab PO Q8H PRN (Reason: pain) 3 Days Qty: 14 0RF ciprofloxacin HCl [ciprofloxacin HCl] 500 mg tablet 500 mg PO BID Qty: 5 0RF metoclopramide HCl [metoclopramide HCl] 10 mg tablet 10 mg PO Q6H PRN (Reason: nausea or migraine) Qty: 10 0RF cefdinir 300 mg capsule 300 mg PO BID Qty: 14 0RF Stand Alone Forms: ED Work / School Excuse Primary Care Provider: Brett Yanez Referrals: Brett Yanez MD [Primary Care Provider] - Activity Restrictions/Additional Instructions: Thank you for trusting us with your care today! Please take Tylenol (2 pills, 650 mg), ibuprofen (2 pills, 400 mg) every 6 hours as needed for pain and fever control. Please take codeine as needed for cough. Please return to the emergency department if your symptoms change or worsen. Specifically if develop shortness of breath, chest pain, you lose consciousness, you develop vomiting you cannot take your medicine by mouth. Please follow with your primary care physician for further outpatient evaluation and management. Disposition Disposition: Home, Self Care
[2022-08-27 22:44] VITALS: BP 197/107; PULSE 102; RESP 20; RESP 34; TEMP 36.9; O2SAT 94; O2SAT 96; O2SAT 97
[2022-08-27] MEDS: Acetaminophen/Codeine #3 Tablet 1 TABLET PO (22:59)
[2022-08-27 23:09] LABS: BNP,B-Type NATRIURETIC PEPTIDE 28.8 pg/mL (0-100)
[2022-08-27 23:11] LABS: Anion Gap 7 (5-15); BUN 16 mg/dL (7-18); BUN/Creat Ratio 13.8 RATIO (10-20); Calcium,Total 9.3 mg/dL (8.5-10.1); Chloride 100 mmol/L (98-107); Creatinine, Serum 1.16 mg/dL (0.55-1.02); EST Glomerular Filtration Rate 54 mL/min (>60); Est Glom Filt Rate - Afr Amer 65 mL/min (>60); Estimated Creatinine Clearance 48.95 ml/min; Glucose 363 mg/dL (74-106); Potassium 3.9 mmol/L (3.5-5.1); Sodium Level 134 mmol/L (136-145); Troponin-I HS 10 pg/mL (3.0-54.0)
[2022-08-27 23:17] LABS: Hematocrit 40.5 % (37-47); Hemoglobin 13.6 g/dL (12.0-15.0); Mean Corp Hgb Conc 33.6 g/dL (32-36); Mean Corpuscular Volume 89.4 fL (81-99); Mean Platelet Vol. 11.5 fl (6.2-12.0); Platelet Count 201 K/mm3 (150-450); RBC Distribution Width CV 12.8 % (11.6-14.6); RBC Distribution Width SD 41.8 fl (35.1-43.9); Red Blood Count 4.53 M/mm3 (4.2-5.4)
== END 2022-08-28 00:10 | disposition home or self-care (01) ==
PROVIDERS: Emergency Provider Emergency Medicine; PCP Internal Medicine; Visit Provider Emergency Medicine
DX: J06.9 Acute upper respiratory infection, unspecified (principal); E11.40 Type 2 diabetes mellitus with diabetic neuropathy, unspecified; Z87.891 Personal history of nicotine dependence; I10 Essential (primary) hypertension; Z79.899 Other long term (current) drug therapy; F32.A Depression, unspecified; K21.9 Gastro-esophageal reflux disease without esophagitis; Z79.84 Long term (current) use of oral hypoglycemic drugs; Z90.49 Acquired absence of other specified parts of digestive tract; R05.9 Cough, unspecified
CPT/HCPCS: 71045; 80048; 83880; 84484; 85027; 87811; 93005; 94760; 99285; A4216

== ENCOUNTER 2022-11-23 16:05 | Emergency (ER) | payer OTHER, SELFPAY ==
[2022-11-23 16:07] VITALS: BP 193/107; PULSE 81; RESP 18; TEMP 36.1; O2SAT 99; BMI 39.1
[2022-11-23 16:50] LABS: Bedside Glucose 160 mg/dL (74-106)
--- NOTE | 2022-11-23 16:54 | EDS_ITS ---
HPI History of Present Illness Chief Complaint: Weakness Informant: patient Narrative Narrative: Patient is a 47-year-old female with history of depression, GERD, diabetes mellitus and hypertension as well as migraines presenting for low blood sugars and generalized weakness. States her symptoms been going on for the past 5 days or so. She is been having fluctuating blood sugars. She states normal blood sugar her is 170s to 210s. She states that the other days she was at work and her blood sugar dropped rapidly from 1 50-100. She vomited at that time. She states she just has not been feeling well generally been weak. Yesterday her blood sugar dropped to 64 and she was quite symptomatic at that time. She notes her blood sugar today is around 160 which is still little lower than she would like it to be. She is on metformin and glimepiride. She does have a history of urinary tract infections but currently denies any urinary symptoms. Denies any chest pain, fever or chills. States she is generally been feeling very weak. No current abdominal pain. No headache or vision changes. Notes that her blood pressure always runs high even if I take my blood pressure medicine. Is currently in between insurance that she cannot follow-up with her PCP at this time. She should begin her insurance back any day now as she just tarted a new job 1 month ago. Patient notes that she has had intentional weight loss. She states at 1 point she weighed almost 400 pounds. She was told that she gets under 200 pounds she probably better blood sugar management. [facility] Medical History Anemia Anxiety Anxiety and depression Bilateral carpal tunnel syndrome Bipolar disorder Blister Chronic low back pain Degenerative arthritis Depression Diabetes Dietary restriction Difficulty chewing Ectopic Former smoker Former smoker Gastric reflux H/O ETOH abuse History of echocardiogram History of edema History of pain when walking History of renal disease History of stress test History of ulceration Homelessness Hydronephrosis Hypertension Hypertension Injury of head and neck Neuropathy Open wound of both lower extremities Osteoarthritis Paresthesia of upper extremity PTSD (post-traumatic stress disorder) Pyelonephritis Pyelonephritis of right kidney Renal stones Right ureteral stone Shortness of breath on exertion Syncope Type 2 diabetes mellitus Urticaria Home Medications losartan 50 mg tablet 50 mg PO QHS blood pressure 11/25/21 [History Last Taken 05/23/22] escitalopram oxalate 5 mg tablet (Lexapro) 5 mg PO QHS depression 01/10/22 [History Last Taken 05/23/22] famotidine 20 mg tablet 20 mg PO QHS reflux 01/10/22 [History Last Taken 05/23/22] fexofenadine 60 mg tablet (Najma Allergy) 60 mg PO BID allergies 01/10/22 [History Last Taken 05/24/22] gabapentin 100 mg capsule 100 mg PO QHS neuropathy 01/10/22 [History Last Taken 05/23/22] glimepiride 4 mg tablet 4 mg PO QAM diabetes 01/10/22 [History Last Taken 05/24/22] metformin 1,000 mg tablet 1,000 mg PO BID diabetes 01/10/22 [History Last Taken 05/24/22] sumatriptan succinate 100 mg tablet (Imitrex) See Rx Instructions PO .COMPLEX Check with primary doctor 01/10/22 [History Last Taken Unknown] oxycodone-acetaminophen 5 mg-325 mg tablet (Percocet) 1 tab PO Q8H PRN pain 3 days #14 tabs 02/19/22 [Rx Last Taken Unknown] ciprofloxacin HCl 500 mg tablet 500 mg PO BID #5 TABLETS 05/26/22 [Rx Last Taken Unknown] cefdinir 300 mg capsule 300 mg PO BID #14 caps 07/08/22 [Rx Last Taken Unknown] metoclopramide HCl 10 mg tablet 10 mg PO Q6H PRN nausea or migraine #10 tabs 07/08/22 [Rx Last Taken Unknown] codeine sulfate 15 mg tablet 15 mg PO Q6H PRN cough 3 days #12 tabs 08/27/22 [Rx Last Taken Unknown] sulfamethoxazole 800 mg-trimethoprim 160 mg tablet (Bactrim DS) 1 tab PO BID 5 days #10 tabs 11/23/22 [Rx Last Taken Unknown] Allergy/AdvReac Type Severity Reaction Status Date / Time Penicillins Allergy Hives Verified 11/23/22 16:08 venom-honey bee Allergy Anaphylaxis Verified 11/23/22 16:08 [bee venom (honey bee)] Family History Other Alcoholism Anxiety Arthritis Asthma Cancer Cervical cancer Depression Diabetes Heart disease Hypertension Myocardial infarction Ovarian cancer Surgical History History of tubal ligation Hx of cholecystectomy Hx of cystoscopy Social History Smoking Status: Former smoker alcohol intake: current alcohol intake frequency: holidays/special occasions only substance use type: does not use what type of physical activity do you participate in: walking ROS ROS ED Constitutional Constitutional ED: Reports other Details: Generalized weakness ; Denies chills or fever(s) Eyes Eyes: Denies blurry vision or change in vision ENT ENT ED: Denies sore throat Cardiovascular Cardiovascular: Denies chest pain or palpitations Respiratory/Chest Respiratory/Chest: Denies cough Gastrointestinal Gastrointestinal: Reports vomiting; Denies abdominal pain, constipation or diarrhea Genitourinary Genitourinary ED: Denies dysuria, hematuria or urinary frequency Musculoskeletal Musculoskeletal: Denies arthralgias or myalgias Integumentary Denies rash Neurologic Neurologic: Denies headache(s) or paresthesias Hematologic/Lymphatic Hematologic/Lymphatic: Denies easy bleeding EXAM Physical Exam Const Vital Signs: 11/23/22 16:07 11/23/22 16:15 11/23/22 17:23 Temperature 97 F L Temperature Source Temporal Pulse Rate 81 Respiratory Rate 18 Respiratory Effort Normal Respiratory Pattern Normal Blood Pressure 193/107 H Blood Pressure Mean 135 Pulse Ox 99 Oxygen Delivery Method Room Air Room Air Positive well nourished, well developed and obese General Appearance ED: well developed Nutritional Appearance: obese Eyes PERRL and EOMs intact bilaterally Neck supple and no JVD Chest Wall inspection of chest normal and palpation of chest normal Resp normal respiratory effort and clear to auscultation bilaterally Cardio regular rate, regular rhythm and no murmurs GI normal to inspection, nondistended, normoactive bowel sounds and non-tender Palpation: soft; Negative for guarding Back/Spine no CVA tenderness Extremity normal to inspection Neuro oriented x3 Neuro Narrative: Generally weak, no focal deficits Sensorium / Orientation: alert; Negative for lethargic Psych mental status grossly normal Skin no rashes or lesions noted and no wounds MDM MDM MDM Narrative Medical decision making narrative: Patient is evaluated for an episode of hypoglycemia as well as generalized weakness. She appears nontoxic no acute distress. She states her blood sugars been more labile. Vital signs significant for hypertension however she states she is always hypertensive despite taking her blood pressure medicine. She is also been generally weak. Given her fluctuations in her blood sugar will do metabolic work-up looking for signs of infection or renal insufficiency that could be causing these drops. In addition I discussed that it could be due to her continued weight loss. CBC largely normal as well as her CMP. Urinalysis is concerning with infection with positive nitrates, 10-25 white blood cells and 3+ bacteria. Patient be started on Bactrim for this as she has an allergy to penicillins. Urine culture sent. Patient instructed to stop her glimepiride until her blood sugars start to regulate better as this can cause hypoglycemia. Patient verbalized agreement understand this plan. She will continue to work on her insurance for outpatient follow-up. Is given return precautions. Discharged home in stable condition. Patient does not have any hypoglycemic episodes while in the emergency room and is overall well-appearing. Lab Data Attestation: I reviewed the patient's lab results. Labs: Laboratory Results - last 24 hr 11/23/22 11/23/22 11/23/22 16:32 17:40 18:13 WBC 7.6 RBC 4.56 Hgb 13.1 Hct 40.8 MCV 89.5 MCH 28.7 MCHC 32.1 RDW Std Deviation 41.3 RDW Coeff of Johnnie 12.6 Plt Count 261 MPV 11.0 Immature Gran % (Auto) 0.300 Neut % (Auto) 61.3 Lymph % (Auto) 26.0 [place] % (Auto) 6.4 Eos % (Auto) 5.0 Baso % (Auto) 1.0 Absolute Neuts (auto) 4.7 Absolute Lymphs (auto) 1.98 Nucleated RBC % 0 Sodium 138 Potassium 4.0 Chloride 103 Carbon Dioxide 30.0 Anion Gap 5 BUN 15 Creatinine 0.95 Estim Creat Clear Calc 59.15 Est GFR (MDRD) Af Amer 82 Est GFR (MDRD) Non-Af 68 BUN/Creatinine Ratio 15.8 Glucose 159 H Calcium 8.8 Total Bilirubin 0.30 AST 15 ALT 26 Alkaline Phosphatase 76 Total Protein 7.1 Albumin 3.2 Globulin 3.9 Albumin/Globulin Ratio 0.8 L Urine Color Yellow Urine Clarity Sl. Cloudy Urine pH 7.0 Ur Specific [place] 1.010 Urine Protein 15 H Urine Glucose (UA) Normal Urine Ketones Negative Urine Occult Blood 25 H Urine Nitrite Positive H Urine Bilirubin Negative Urine Urobilinogen Normal Ur Leukocyte Esterase 100 H Urine RBC 0-5 SEEN Urine WBC 10-25 SEEN Ur Squamous Epith Cells 0-5 SEEN Urine Bacteria 3+ Urine Mucus 0 SEEN POC Glucose 160 H Rhythm Strip Rhythm Strip: Sinus Rhythm Rate: 69 Ectopy: None EKG Initial EKG: Attestation: I personally reviewed and interpreted this EKG as follows: Interpretation: Sinus Rhythm Comments: Normal sinus rhythm at a rate of 69 bpm Normal axis Normal intervals Normal ST segments Compared to prior EKG patient is no longer tachycardic Discharge Plan Triage Chief Complaint: Weakness ED Provider: Haylee Gilliland Dx/Rx/DC Orders Clinical Impression: UTI (urinary tract infection), Hypoglycemic episode in patient with diabetes mellitus Instructions: ED Hypoglycemia Oral Diabetic ..., ED Cystitis Female Adult Prescriptions: New sulfamethoxazole-trimethoprim [Bactrim DS] 800-160 mg tablet 1 tab PO BID 5 Days Qty: 10 0RF No Action losartan 50 mg tablet 50 mg PO QHS fexofenadine [Najma Allergy] 60 mg tablet 60 mg PO BID sumatriptan succinate [Imitrex] 100 mg tablet See Rx Instructions PO .COMPLEX Rx Instructions: take 1 tab at onset of headache; if no relief, may repeat 1 tab after at least 2 hrs; max = 2 tabs/24 hrs PO famotidine 20 mg tablet 20 mg PO QHS metformin 1,000 mg tablet 1,000 mg PO BID glimepiride 4 mg tablet 4 mg PO QAM Rx Instructions: administer with breakfast gabapentin 100 mg capsule 100 mg PO QHS escitalopram oxalate [Lexapro] 5 mg tablet 5 mg PO QHS oxycodone-acetaminophen [Percocet] 5-325 mg tablet 1 tab PO Q8H PRN (Reason: pain) 3 Days Qty: 14 0RF ciprofloxacin HCl [ciprofloxacin HCl] 500 mg tablet 500 mg PO BID Qty: 5 0RF metoclopramide HCl [metoclopramide HCl] 10 mg tablet 10 mg PO Q6H PRN (Reason: nausea or migraine) Qty: 10 0RF cefdinir 300 mg capsule 300 mg PO BID Qty: 14 0RF codeine sulfate 15 mg tablet 15 mg PO Q6H PRN (Reason: cough) 3 Days Qty: 12 0RF Stand Alone Forms: ED Work / School Excuse Primary Care Provider: Brett Yanez Referrals: Brett Yanez MD [Primary Care Provider] - Activity Restrictions/Additional Instructions: Please hold your glimepiride until your blood sugars stop dropping. You can continue to take your metformin. Disposition Disposition: Home, Self Care
[2022-11-23 17:52] LABS: Absolute Lymphocyte Count 1.98 X10^3/uL (0.83-4.51); Absolute Neutrophil Count 4.7 X10^3/uL (2.0-7.7); Basophil# 0.08 X10^3/uL; Eosinophil# 0.38 X10^3/uL; Hematocrit 40.8 % (37-47); Hemoglobin 13.1 g/dL (12.0-15.0); Lymphocyte # 1.98 X10^3/ul (0.83-4.51); Mean Corp Hgb Conc 32.1 g/dL (32-36); Mean Corpuscular Hgb 28.7 pg (27.0-32.0); Mean Corpuscular Volume 89.5 fL (81-99); Monocyte# 0.49 X10^3/uL; Monocyte% 6.4 % (0-10); NRBC Flagged by Analyzer 0 % (0-5); Neutrophil # 4.67 X10^3/uL (2.7-7.7); Neutrophil % 61.3 % (47-70); Platelet Count 261 K/mm3 (150-450); RBC Distribution Width CV 12.6 % (11.6-14.6); RBC Distribution Width SD 41.3 fl (35.1-43.9); Red Blood Count 4.56 M/mm3 (4.2-5.4); White Blood Count 7.6 K/mm3 (4.4-11.0)
[2022-11-23 18:10] LABS: ALB/GLOB Ratio 0.8 RATIO (0.9-2.4); AST(SGOT) 15 U/L (15-37); Alanine Aminotransfer ALT/SGPT 26 U/L (13-56); Albumin, Serum 3.2 g/dL (3.2-5.0); Alkaline Phosphatase 76 U/L (45-117); Anion Gap 5 (5-15); BUN 15 mg/dL (7-18); BUN/Creat Ratio 15.8 RATIO (10-20); Calcium,Total 8.8 mg/dL (8.5-10.1); Chloride 103 mmol/L (98-107); Creatinine, Serum 0.95 mg/dL (0.55-1.02); EST Glomerular Filtration Rate 68 mL/min (>60); Est Glom Filt Rate - Afr Amer 82 mL/min (>60); Estimated Creatinine Clearance 59.15 ml/min; Globulin 3.9 g/dL (2.2-4.2); Glucose 159 mg/dL (74-106); Protein, Total 7.1 g/dL (6.4-8.2); Sodium Level 138 mmol/L (136-145)
[2022-11-23 18:15] LABS: Mucous, Urine 0 SEEN /hpf (<or=2+)
[2022-11-23 18:20] LABS: Color, Urine Yellow (Yellow); Glucose, Dipstick Normal (Normal); Ketone-Dipstick Negative (Negative); Leukocyte Esterase-Dipstick 100 /ul (Negative); Nitrite-Dipstick Positive (Negative); Occult Blood-Urine 25 /ul (Negative); Protein-Dipstick 15 mg/dl (Negative); Urine Bilirubin Dipstick Negative (Negative); Urine Clarity Sl. Cloudy (Clear); Urine Urobilinogen Normal (Normal)
[2022-11-23 18:54] LABS: Bacteria 3+ /hpf (None Seen); Red Blood Cells-Urine 0-5 SEEN /hpf (0-5); Squamous Epithelial Cells - UA 0-5 SEEN /hpf (5-10); White Blood Cells 10-25 SEEN /hpf (0-5)
[2022-11-23 19:00] VITALS: RESP 18
[2022-11-23] MEDS: Smz/Tmp Ds Tablet 1 TABLET PO (19:49)
== END 2022-11-23 20:03 | disposition home or self-care (01) ==
PROVIDERS: Emergency Provider Emergency Medicine; PCP Internal Medicine; Visit Provider Emergency Medicine
DX: N39.0 Urinary tract infection, site not specified (principal); E11.40 Type 2 diabetes mellitus with diabetic neuropathy, unspecified; E11.649 Type 2 diabetes mellitus with hypoglycemia without coma; Z79.84 Long term (current) use of oral hypoglycemic drugs; Z87.891 Personal history of nicotine dependence; I10 Essential (primary) hypertension; Z79.899 Other long term (current) drug therapy; F32.A Depression, unspecified; K21.9 Gastro-esophageal reflux disease without esophagitis; Z90.49 Acquired absence of other specified parts of digestive tract
CPT/HCPCS: 80053; 81001; 82962; 85025; 87077; 87086; 87088; 87186; 93005; 99283; A4216

== ENCOUNTER 2022-12-03 18:21 | Emergency (ER) | payer OTHER, SELFPAY ==
[2022-12-03 18:23] VITALS: BP 190/111; PULSE 86; RESP 18; TEMP 36.3; O2SAT 99; BMI 40.4
[2022-12-03] MEDS: 0.9% Normal Saline (1000mL) 1,000 ML 1000 ML IV (19:48)
[2022-12-03] MEDS: DiphenhydrAMINE 50 MG/ML Syringe 25 MG IV (19:49)
[2022-12-03] MEDS: Metoclopramide 10 MG/2 ML Vial IV (19:49)
[2022-12-03 20:05] LABS: Absolute Lymphocyte Count 1.79 X10^3/uL (0.83-4.51); Absolute Neutrophil Count 3.2 X10^3/uL (2.0-7.7); Basophil# 0.04 X10^3/uL; Basophil% 0.7 % (0-1); Eosinophils% 5.3 % (0-5); Hematocrit 40.6 % (37-47); Hemoglobin 13.1 g/dL (12.0-15.0); Lymphocyte # 1.79 X10^3/ul (0.83-4.51); Lymphocyte % 31.3 % (19-41); Mean Corp Hgb Conc 32.3 g/dL (32-36); Mean Corpuscular Hgb 28.9 pg (27.0-32.0); Mean Corpuscular Volume 89.4 fL (81-99); Mean Platelet Vol. 11.1 fl (6.2-12.0); Monocyte# 0.37 X10^3/uL; Monocyte% 6.5 % (0-10); NRBC Flagged by Analyzer 0 % (0-5); Platelet Count 188 K/mm3 (150-450); RBC Distribution Width CV 13.1 % (11.6-14.6); RBC Distribution Width SD 42.7 fl (35.1-43.9); Red Blood Count 4.54 M/mm3 (4.2-5.4); White Blood Count 5.7 K/mm3 (4.4-11.0)
[2022-12-03 20:14] LABS: Internal QC Validated? YES +Cl - CLEAR BKGD; Pregnancy, Serum, hCG Quali. NEGATIVE Negative
[2022-12-03 20:20] LABS: Anion Gap 3 (5-15); BUN 18 mg/dL (7-18); BUN/Creat Ratio 15.8 RATIO (10-20); Calcium,Total 8.7 mg/dL (8.5-10.1); Chloride 104 mmol/L (98-107); Creatinine, Serum 1.14 mg/dL (0.55-1.02); EST Glomerular Filtration Rate 55 mL/min (>60); Est Glom Filt Rate - Afr Amer 66 mL/min (>60); Estimated Creatinine Clearance 49.29 ml/min; Glucose 284 mg/dL (74-106); Potassium 3.9 mmol/L (3.5-5.1); Sodium Level 136 mmol/L (136-145)
--- NOTE | 2022-12-03 20:23 | EX.ED.DYSGE1 ---
HPI History of Present Illness Chief Complaint: General Illness Informant: patient Onset/Context/Timing Onset: Today Context: Sudden Onset Timing: Intermittent and Lasts (Approximately 3 hours) Quality: Pruritic Location: Bilateral forearms, chest Worsened by: Nothing Relieved by: Nothing Narrative Narrative: Patient presents with possible allergic reaction. Patient states that she put Band-Aids on her chest, and bilateral forearms today. Patient states that she developed some hives across her chest. Patient states it feels like her skin is burning and itching. Patient states it has been intermittent. Patient states it is lasted approximately 3 hours when it came on. Patient states it is mainly over her forearms and chest. Patient denies any difficulty breathing or difficulty swallowing. Patient states nothing makes it worse and nothing makes it better. Patient also admits to a migraine headache. Patient admits to some nausea with this. Patient denies any vomiting. [facility] Medical History Anemia Anxiety Anxiety and depression Bilateral carpal tunnel syndrome Bipolar disorder Blister Chronic low back pain Degenerative arthritis Depression Diabetes Dietary restriction Difficulty chewing Ectopic Former smoker Former smoker Gastric reflux H/O ETOH abuse History of echocardiogram History of edema History of pain when walking History of renal disease History of stress test History of ulceration Homelessness Hydronephrosis Hypertension Hypertension Injury of head and neck Neuropathy Open wound of both lower extremities Osteoarthritis Paresthesia of upper extremity PTSD (post-traumatic stress disorder) Pyelonephritis Pyelonephritis of right kidney Renal stones Right ureteral stone Shortness of breath on exertion Syncope Type 2 diabetes mellitus Urticaria Home Medications losartan 50 mg tablet 50 mg PO QHS blood pressure 11/25/21 [History Last Taken 05/23/22] escitalopram oxalate 5 mg tablet (Lexapro) 5 mg PO QHS depression 01/10/22 [History Last Taken 05/23/22] famotidine 20 mg tablet 20 mg PO QHS reflux 01/10/22 [History Last Taken 05/23/22] fexofenadine 60 mg tablet (Najma Allergy) 60 mg PO BID allergies 01/10/22 [History Last Taken 05/24/22] gabapentin 100 mg capsule 100 mg PO QHS neuropathy 01/10/22 [History Last Taken 05/23/22] glimepiride 4 mg tablet 4 mg PO QAM diabetes 01/10/22 [History Last Taken 05/24/22] metformin 1,000 mg tablet 1,000 mg PO BID diabetes 01/10/22 [History Last Taken 05/24/22] sumatriptan succinate 100 mg tablet (Imitrex) See Rx Instructions PO .COMPLEX Check with primary doctor 01/10/22 [History Last Taken Unknown] oxycodone-acetaminophen 5 mg-325 mg tablet (Percocet) 1 tab PO Q8H PRN pain 3 days #14 tabs 02/19/22 [Rx Last Taken Unknown] ciprofloxacin HCl 500 mg tablet 500 mg PO BID #5 TABLETS 05/26/22 [Rx Last Taken Unknown] cefdinir 300 mg capsule 300 mg PO BID #14 caps 07/08/22 [Rx Last Taken Unknown] metoclopramide HCl 10 mg tablet 10 mg PO Q6H PRN nausea or migraine #10 tabs 07/08/22 [Rx Last Taken Unknown] codeine sulfate 15 mg tablet 15 mg PO Q6H PRN cough 3 days #12 tabs 08/27/22 [Rx Last Taken Unknown] sulfamethoxazole 800 mg-trimethoprim 160 mg tablet (Bactrim DS) 1 tab PO BID 5 days #10 tabs 11/23/22 [Rx Last Taken Unknown] Allergy/AdvReac Type Severity Reaction Status Date / Time Penicillins Allergy Hives Verified 12/03/22 18:23 venom-honey bee Allergy Anaphylaxis Verified 12/03/22 18:23 [bee venom (honey bee)] Family History Other Alcoholism Anxiety Arthritis Asthma Cancer Cervical cancer Depression Diabetes Heart disease Hypertension Myocardial infarction Ovarian cancer Surgical History History of tubal ligation Hx of cholecystectomy Hx of cystoscopy Social History Smoking Status: Former smoker alcohol intake: current alcohol intake frequency: holidays/special occasions only substance use type: does not use what type of physical activity do you participate in: walking ROS ROS ED Constitutional Constitutional ED: Reports chills; Denies fever(s) Eyes Eyes: Denies blurry vision or change in vision ENT ENT ED: Denies rhinorrhea or sore throat Cardiovascular Cardiovascular: Denies chest pain or palpitations Respiratory/Chest Respiratory/Chest: Denies cough or dyspnea Gastrointestinal Gastrointestinal: Reports nausea; Denies vomiting Genitourinary Genitourinary ED: Denies dysuria or hematuria Musculoskeletal Musculoskeletal: Denies back pain or neck pain Integumentary Denies abscess or rash Neurologic Neurologic: Reports headache(s); Denies weakness Allergic/Immunologic Allergic/Immunologic ED: Denies mouth swelling or urticaria EXAM Physical Exam Const Vital Signs: 12/03/22 18:23 12/03/22 18:59 Temperature 97.3 F L Temperature Source Temporal Pulse Rate 86 Respiratory Rate 18 Respiratory Effort Normal Respiratory Pattern Normal Blood Pressure 190/111 H Blood Pressure Mean 137 Pulse Ox 99 Oxygen Delivery Method Room Air Positive well nourished, well developed and obese General Appearance ED: well developed and NAD Nutritional Appearance: obese HEENT Reports moist mucous membranes Neck supple and no JVD Resp normal respiratory effort and clear to auscultation bilaterally Cardio regular rate and regular rhythm GI non-tender and non-distended Palpation: soft Neuro oriented x3, CN's II-XII intact bilaterally and no sensory deficits noted Sensorium / Orientation: alert Motor Exam: strength 5/5 throughout Psych mental status grossly normal Skin Skin Narrative: There is a superficial ulceration across her chest near the midline. There is also a superficial abrasion over the volar aspects of the forearms bilaterally. There is some urticaria across the chest. There is no discharge or drainage. There are no vesicles or pustules noted. There are no petechia noted. Oral mucosa is pink and moist. There is no involvement of the oral mucosa. There is no sloughing of the skin noted. MDM MDM MDM Narrative Medical decision making narrative: Differential diagnosis includes contact dermatitis, wound infection, electrolyte abnormality, and migraine headache. CBC will be obtained to assess for leukocytosis and anemia. Basic metabolic profile will be obtained to assess for electrolyte abnormality and renal function. Serum hCG will be obtained to assess for . Lab Data Attestation: I reviewed the patient's lab results. Lab results narrative: CBC was reviewed and was within normal limits. Basic metabolic profile was reviewed. Glucose was elevated at 284. Anion gap was normal. CO2 was normal. Serum hCG was reviewed and was negative. Labs: Laboratory Results - last 24 hr 12/03/22 19:39 WBC 5.7 RBC 4.54 Hgb 13.1 Hct 40.6 MCV 89.4 MCH 28.9 MCHC 32.3 RDW Std Deviation 42.7 RDW Coeff of Johnnie 13.1 Plt Count 188 MPV 11.1 Immature Gran % (Auto) 0.200 Neut % (Auto) 56.0 Lymph % (Auto) 31.3 [place] % (Auto) 6.5 Eos % (Auto) 5.3 H Baso % (Auto) 0.7 Absolute Neuts (auto) 3.2 Absolute Lymphs (auto) 1.79 Nucleated RBC % 0 Sodium 136 Potassium 3.9 Chloride 104 Carbon Dioxide 29.0 Anion Gap 3 L BUN 18 Creatinine 1.14 H Estim Creat Clear Calc 49.29 Est GFR (MDRD) Af Amer 66 Est GFR (MDRD) Non-Af 55 L BUN/Creatinine Ratio 15.8 Glucose 284 H Calcium 8.7 Serum , Qual NEGATIVE Treatment and Re-Evaluation :: Patient was given IV fluids, Reglan, and Benadryl. Patient is feeling better on reevaluation. Patient states she still has some itching but it is improved. Patient states her headache has improved. Patient was instructed to continue taking her Najma as needed for any itching. Patient was instructed to follow-up with her primary care physician in 5 to 7 days. Patient understood and was agreeable with the plan. All questions were answered. Discharge Plan Triage Chief Complaint: General Illness Other Complaint: Itching ED Provider: Chandana London Dx/Rx/DC Orders Clinical Impression: Type 2 diabetes mellitus, Migraine, Contact dermatitis Instructions: ED General Allergic Reactions, ED, Migraine (Classical) Prescriptions: No Action losartan 50 mg tablet 50 mg PO QHS fexofenadine [Najma Allergy] 60 mg tablet 60 mg PO BID sumatriptan succinate [Imitrex] 100 mg tablet See Rx Instructions PO .COMPLEX Rx Instructions: take 1 tab at onset of headache; if no relief, may repeat 1 tab after at least 2 hrs; max = 2 tabs/24 hrs PO famotidine 20 mg tablet 20 mg PO QHS metformin 1,000 mg tablet 1,000 mg PO BID glimepiride 4 mg tablet 4 mg PO QAM Rx Instructions: administer with breakfast gabapentin 100 mg capsule 100 mg PO QHS escitalopram oxalate [Lexapro] 5 mg tablet 5 mg PO QHS oxycodone-acetaminophen [Percocet] 5-325 mg tablet 1 tab PO Q8H PRN (Reason: pain) 3 Days Qty: 14 0RF ciprofloxacin HCl [ciprofloxacin HCl] 500 mg tablet 500 mg PO BID Qty: 5 0RF metoclopramide HCl [metoclopramide HCl] 10 mg tablet 10 mg PO Q6H PRN (Reason: nausea or migraine) Qty: 10 0RF cefdinir 300 mg capsule 300 mg PO BID Qty: 14 0RF codeine sulfate 15 mg tablet 15 mg PO Q6H PRN (Reason: cough) 3 Days Qty: 12 0RF sulfamethoxazole-trimethoprim [Bactrim DS] 800-160 mg tablet 1 tab PO BID 5 Days Qty: 10 0RF Stand Alone Forms: ED Work / School Excuse Primary Care Provider: Brett Yanez Referrals: Brett Yanez MD [Primary Care Provider] - 5-7 Days Disposition Disposition: Home, Self Care
[2022-12-03 21:38] VITALS: BP 178/80; BP 179/80; PULSE 79; RESP 16; O2SAT 97
== END 2022-12-03 21:40 | disposition home or self-care (01) ==
PROVIDERS: Emergency Provider Emergency Medicine; PCP Internal Medicine; Visit Provider Emergency Medicine
DX: L25.9 Unspecified contact dermatitis, unspecified cause (principal); E11.40 Type 2 diabetes mellitus with diabetic neuropathy, unspecified; G43.909 Migraine, unspecified, not intractable, without status migrainosus; Z87.891 Personal history of nicotine dependence; I10 Essential (primary) hypertension; Z79.899 Other long term (current) drug therapy; F32.A Depression, unspecified; K21.9 Gastro-esophageal reflux disease without esophagitis; Z79.84 Long term (current) use of oral hypoglycemic drugs; Z90.49 Acquired absence of other specified parts of digestive tract
CPT/HCPCS: 80048; 84703; 85025; 96361; 96374; 96375; 99284; J7030; A4216

== ENCOUNTER 2022-12-17 15:20 | Emergency (ER) | payer OTHER, SELFPAY ==
[2022-12-17 15:21] VITALS: BP 164/109; PULSE 100; RESP 18; TEMP 35.5; O2SAT 99; BMI 38.0
--- NOTE | 2022-12-17 16:25 | EDS_ITS ---
HPI History of Present Illness Chief Complaint: Cold Sx Informant: patient Narrative Narrative: Patient presents with concern for COVID. About 5 to 6 days ago patient started with nausea vomiting and diarrhea. That resolved. It then came back a little bit over the last day. She now has nausea but has not vomited and has not had diarrhea. She occasionally has a cough but she also has a chronic cough. She has slight myalgias but she also has chronic pains. Her biggest concern is that she does not feel like eating and her work will want to know if she has COVID. [facility] Medical History Anemia Anxiety Anxiety and depression Bilateral carpal tunnel syndrome Bipolar disorder Blister Chronic low back pain Degenerative arthritis Depression Diabetes Dietary restriction Difficulty chewing Ectopic Former smoker Former smoker Gastric reflux H/O ETOH abuse History of echocardiogram History of edema History of pain when walking History of renal disease History of stress test History of ulceration Homelessness Hydronephrosis Hypertension Hypertension Injury of head and neck Neuropathy Open wound of both lower extremities Osteoarthritis Paresthesia of upper extremity PTSD (post-traumatic stress disorder) Pyelonephritis Pyelonephritis of right kidney Renal stones Right ureteral stone Shortness of breath on exertion Syncope Type 2 diabetes mellitus Urticaria Home Medications losartan 50 mg tablet 50 mg PO QHS blood pressure 11/25/21 [History Last Taken 0 05/23/22] escitalopram oxalate 5 mg tablet (Lexapro) 5 mg PO QHS depression 01/10/22 [History Last Taken 05/23/22] famotidine 20 mg tablet 20 mg PO QHS reflux 01/10/22 [History Last Taken 05/23/22] fexofenadine 60 mg tablet (Najma Allergy) 60 mg PO BID allergies 01/10/22 [History Last Taken 05/24/22] gabapentin 100 mg capsule 100 mg PO QHS neuropathy 01/10/22 [History Last Taken 05/23/22] glimepiride 4 mg tablet 4 mg PO QAM diabetes 01/10/22 [History Last Taken 05/24/22] metformin 1,000 mg tablet 1,000 mg PO BID diabetes 01/10/22 [History Last Taken 05/24/22] sumatriptan succinate 100 mg tablet (Imitrex) See Rx Instructions PO .COMPLEX Check with primary doctor 01/10/22 [History Last Taken Unknown] oxycodone-acetaminophen 5 mg-325 mg tablet (Percocet) 1 tab PO Q8H PRN pain 3 days #14 tabs 02/19/22 [Rx Last Taken Unknown] ciprofloxacin HCl 500 mg tablet 500 mg PO BID #5 TABLETS 05/26/22 [Rx Last Taken Unknown] cefdinir 300 mg capsule 300 mg PO BID #14 caps 07/08/22 [Rx Last Taken Unknown] metoclopramide HCl 10 mg tablet 10 mg PO Q6H PRN nausea or migraine #10 tabs 07/08/22 [Rx Last Taken Unknown] codeine sulfate 15 mg tablet 15 mg PO Q6H PRN cough 3 days #12 tabs 08/27/22 [Rx Last Taken Unknown] sulfamethoxazole 800 mg-trimethoprim 160 mg tablet (Bactrim DS) 1 tab PO BID 5 days #10 tabs 11/23/22 [Rx Last Taken Unknown] ondansetron 4 mg disintegrating tablet 4 mg PO Q8H PRN PRN Nausea #10 tabs 12/17/22 [Rx Last Taken Unknown] promethazine 25 mg tablet 25 mg PO Q6H PRN PRN Nausea #10 TABLETS 12/17/22 [Rx Last Taken Unknown] Allergy/AdvReac Type Severity Reaction Status Date / Time Penicillins Allergy Hives Verified 12/17/22 15:23 venom-honey bee Allergy Anaphylaxis Verified 12/17/22 15:23 [bee venom (honey bee)] Family History Other Alcoholism Anxiety Arthritis Asthma Cancer Cervical cancer Depression Diabetes Heart disease Hypertension Myocardial infarction Ovarian cancer Surgical History History of tubal ligation Hx of cholecystectomy Hx of cystoscopy Social History Smoking Status: Former smoker alcohol intake: current alcohol intake frequency: holidays/special occasions only substance use type: does not use what type of physical activity do you participate in: walking ROS ROS ED ROS Narrative A complete review of systems was performed and is negative except as documented in the history of present illness. Some specific details below. Constitutional: No recent fevers but she has felt chills. She does have sense of malaise. EYE: No visual complaints or pain. ENT: No difficulty swallowing. No swelling. No pain. No sore throat congestion or ear pain. CV: No chest pain or palpitations. Respiratory: No dyspnea. No hemoptysis. No difficulty taking breaths. However, she does have an occasional cough but some of this is slightly chronic. GI: Please see history of present illness. : No frequency dysuria or hematuria. Musculoskeletal: No recent trauma. Slight myalgias. Skin: No rash. Nondiaphoretic. Neuro: No weakness or numbness. Endocrine: No polyuria or polydipsia. EXAM Physical Exam Narrative Exam Narrative: CONSTITUTIONAL: Patient is nontoxic in appearance. The patient looks comfortable. HEENT: No notable trauma. Mucous membranes are still. No sinus tenderness. No indication of pain with swallowing. EYES: No conjunctival injection. No proptosis. CARDIOVASCULAR: Regular rate. Regular rhythm. No notable murmur. No JVD. Heart rate is about 8590 when I see her. RESPIRATORY: No respiratory distress. Breathing is unlabored. No wheezes. No rhonchi. No rales. No pain with a deep breath. No coughing while I am in the room. Saturations are normal at 99% on room air showing no hypoxia. GASTROINTESTINAL: Obese but not distended. Bowel sounds are normal. No tenderness. No guarding. No rebound. No palpable mass. No bruit. Overall very benign exam. GENITOURINARY: No tenderness over the bladder. No CVA tenderness. MUSCULOSKELETAL: Atraumatic. No peripheral edema. No cord. No tenderness along the deep venous system. No asymmetry. NEUROLOGICAL: Patient is alert and appropriate. No focal deficit noted. SKIN: No noted rashes. No diaphoresis. PSYCHIATRIC: Patient is calm. Mood is appropriate. Const Vital Signs: 12/17/22 15:21 12/17/22 16:32 Temperature 96 F L Temperature Source Temporal Pulse Rate 100 Respiratory Rate 18 Respiratory Effort Normal Non-Labored Respiratory Pattern Normal Blood Pressure 164/109 H Blood Pressure Mean 127 Pulse Ox 99 Oxygen Delivery Method Room Air MDM MDM MDM Narrative Medical decision making narrative: Patient's electrolytes are not showing any marked abnormalities. She has minimal changes sodium and creatinine. She does however, have elevated glucose at 320. But she is given fluids. It sounds like she also may have held her meds because she was not eating. Her COVID is negative. Patient is feeling better. I will write her for some meds for nausea. We will get her home at this time. She has improvement of her nausea is actually gone. Abdomen still benign. Lab Data Attestation: I reviewed the patient's lab results. Labs: Laboratory Results - last 24 hr 12/17/22 16:34 Sodium 133 L Potassium 4.0 Chloride 101 Carbon Dioxide 28.0 Anion Gap 4 L BUN 12 Creatinine 1.11 H Estim Creat Clear Calc 50.62 Est GFR (MDRD) Af Amer 68 Est GFR (MDRD) Non-Af 57 L BUN/Creatinine Ratio 10.8 Glucose 321 H Calcium 8.9 Discharge Plan Triage Chief Complaint: Cold Sx ED Provider: Vitor Davis Dx/Rx/DC Orders Clinical Impression: Close exposure to 2019-nCoV, Nausea & vomiting Instructions: ED Vomiting (Adult) Prescriptions: New promethazine [promethazine] 25 mg tablet 25 mg PO Q6H PRN PRN (Reason: Nausea) Qty: 10 0RF ondansetron [ondansetron] 4 mg tablet,disintegrating 4 mg PO Q8H PRN PRN (Reason: Nausea) Qty: 10 0RF No Action losartan 50 mg tablet 50 mg PO QHS fexofenadine [Najma Allergy] 60 mg tablet 60 mg PO BID sumatriptan succinate [Imitrex] 100 mg tablet See Rx Instructions PO .COMPLEX Rx Instructions: take 1 tab at onset of headache; if no relief, may repeat 1 tab after at least 2 hrs; max = 2 tabs/24 hrs PO famotidine 20 mg tablet 20 mg PO QHS metformin 1,000 mg tablet 1,000 mg PO BID glimepiride 4 mg tablet 4 mg PO QAM Rx Instructions: administer with breakfast gabapentin 100 mg capsule 100 mg PO QHS escitalopram oxalate [Lexapro] 5 mg tablet 5 mg PO QHS oxycodone-acetaminophen [Percocet] 5-325 mg tablet 1 tab PO Q8H PRN (Reason: pain) 3 Days Qty: 14 0RF ciprofloxacin HCl [ciprofloxacin HCl] 500 mg tablet 500 mg PO BID Qty: 5 0RF metoclopramide HCl [metoclopramide HCl] 10 mg tablet 10 mg PO Q6H PRN (Reason: nausea or migraine) Qty: 10 0RF cefdinir 300 mg capsule 300 mg PO BID Qty: 14 0RF codeine sulfate 15 mg tablet 15 mg PO Q6H PRN (Reason: cough) 3 Days Qty: 12 0RF sulfamethoxazole-trimethoprim [Bactrim DS] 800-160 mg tablet 1 tab PO BID 5 Days Qty: 10 0RF Primary Care Provider: Brett Yanez Referrals: Brett Yanez MD [Primary Care Provider] - 3-5 Days Disposition Disposition: Home, Self Care
[2022-12-17] MEDS: 0.9% Normal Saline (1000mL) 1,000 ML 1000 ML IV (16:34)
[2022-12-17] MEDS: Ondansetron 4 MG/2 ML Vial IV (16:35)
[2022-12-17 17:00] LABS: Anion Gap 4 (5-15); BUN 12 mg/dL (7-18); BUN/Creat Ratio 10.8 RATIO (10-20); Calcium,Total 8.9 mg/dL (8.5-10.1); Chloride 101 mmol/L (98-107); Creatinine, Serum 1.11 mg/dL (0.55-1.02); EST Glomerular Filtration Rate 57 mL/min (>60); Est Glom Filt Rate - Afr Amer 68 mL/min (>60); Estimated Creatinine Clearance 50.62 ml/min; Glucose 321 mg/dL (74-106); Sodium Level 133 mmol/L (136-145)
[2022-12-17 18:52] VITALS: BP 158/95; PULSE 95; RESP 18; O2SAT 99
[2022-12-17] MEDS: Acetaminophen 500 MG Tablet PO (19:00)
== END 2022-12-17 19:03 | disposition home or self-care (01) ==
PROVIDERS: Emergency Provider Emergency Medicine; PCP Internal Medicine; Visit Provider Emergency Medicine
DX: R11.2 Nausea with vomiting, unspecified (principal); E11.65 Type 2 diabetes mellitus with hyperglycemia; E11.40 Type 2 diabetes mellitus with diabetic neuropathy, unspecified; Z87.891 Personal history of nicotine dependence; I10 Essential (primary) hypertension; G89.29 Other chronic pain; Z20.822 Contact with and (suspected) exposure to COVID-19; M79.10 Myalgia, unspecified site; R19.7 Diarrhea, unspecified; R05.3 Chronic cough
CPT/HCPCS: 80048; 87811; 96361; 96374; 99283; J7030; A4216; J2405

== ENCOUNTER 2023-03-24 07:41 | Emergency (ER) | payer MEDICAID, SELFPAY ==
[2023-03-24 07:41] VITALS: BP 195/126; PULSE 96; RESP 20; TEMP 35.5; O2SAT 100; BMI 37.9
--- NOTE | 2023-03-24 08:02 | EKG12_ITS ---
Test Reason : COUGH/SOB Blood Pressure : / mmHG Vent. Rate : 090 BPM Atrial Rate : 090 BPM P-R Int : 142 ms QRS Dur : 086 ms QT Int : 386 ms P-R-T Axes : 047 010 057 degrees QTc Int : 472 ms Normal sinus rhythm Cannot rule out Anterior infarct , age undetermined Abnormal ECG Confirmed by GEORGINA SANTIAGO, ANGELLA ([id number]), editor house organ ARPITA REDMAN ([id number]) on 03/26/2023 7:58:55 AM Referred By: Confirmed By:ANGELLA ERICKSON MD
--- NOTE | 2023-03-24 08:03 | EDS_ITS ---
HPI History of Present Illness Chief Complaint: Cold Sx Detail of Chief Complaint: Cold symptoms and chest pressure Informant: patient Narrative Narrative: Patient presents to the emergency department stating that her work requires that she get a COVID test. Patient states that she started with a mild cough 5 days ago. She started with vomiting 3 days ago and that resolved yesterday. Patient also started with diarrhea. She complains of some chest pressure. She has had no fever. Patient is a diabetic and has history of hypertension but has not been taking medications as she is homeless and she just recently got her insurance again and has not followed up with her primary care physician. [facility] Medical History Anemia Anxiety Anxiety and depression Bilateral carpal tunnel syndrome Bipolar disorder Blister Chronic low back pain Degenerative arthritis Depression Diabetes Dietary restriction Difficulty chewing Ectopic Former smoker Former smoker Gastric reflux H/O ETOH abuse History of echocardiogram History of edema History of pain when walking History of renal disease History of stress test History of ulceration Homelessness Hydronephrosis Hypertension Hypertension Injury of head and neck Neuropathy Open wound of both lower extremities Osteoarthritis Paresthesia of upper extremity PTSD (post-traumatic stress disorder) Pyelonephritis Pyelonephritis of right kidney Renal stones Right ureteral stone Shortness of breath on exertion Syncope Type 2 diabetes mellitus Urticaria Home Medications losartan 50 mg tablet 50 mg PO QHS blood pressure 11/25/21 [History Last Taken 05/23/22] escitalopram oxalate 5 mg tablet (Lexapro) 5 mg PO QHS depression 01/10/22 [History Last Taken 05/23/22] famotidine 20 mg tablet 20 mg PO QHS reflux 01/10/22 [History Last Taken 05/23/22] fexofenadine 60 mg tablet (Najma Allergy) 60 mg PO BID allergies 01/10/22 [History Last Taken 05/24/22] gabapentin 100 mg capsule 100 mg PO QHS neuropathy 01/10/22 [History Last Taken 05/23/22] glimepiride 4 mg tablet 4 mg PO QAM diabetes 01/10/22 [History Last Taken 05/24/22] metformin 1,000 mg tablet 1,000 mg PO BID diabetes 01/10/22 [History Last Taken 05/24/22] sumatriptan succinate 100 mg tablet (Imitrex) See Rx Instructions PO .COMPLEX Ch marilyn with primary doctor 01/10/22 [History Last Taken Unknown] oxycodone-acetaminophen 5 mg-325 mg tablet (Percocet) 1 tab PO Q8H PRN pain 3 days #14 tabs 02/19/22 [Rx Last Taken Unknown] ciprofloxacin HCl 500 mg tablet 500 mg PO BID #5 TABLETS 05/26/22 [Rx Last Taken Unknown] cefdinir 300 mg capsule 300 mg PO BID #14 caps 07/08/22 [Rx Last Taken Unknown] metoclopramide HCl 10 mg tablet 10 mg PO Q6H PRN nausea or migraine #10 tabs 07/08/22 [Rx Last Taken Unknown] codeine sulfate 15 mg tablet 15 mg PO Q6H PRN cough 3 days #12 tabs 08/27/22 [Rx Last Taken Unknown] sulfamethoxazole 800 mg-trimethoprim 160 mg tablet (Bactrim DS) 1 tab PO BID 5 days #10 tabs 11/23/22 [Rx Last Taken Unknown] ondansetron 4 mg disintegrating tablet 4 mg PO Q8H PRN PRN Nausea #10 tabs 12/17/22 [Rx Last Taken Unknown] promethazine 25 mg tablet 25 mg PO Q6H PRN PRN Nausea #10 TABLETS 12/17/22 [Rx Last Taken Unknown] losartan 50 mg tablet 50 mg PO DAILY #30 tabs 03/24/23 [Rx Last Taken Unknown] metformin 1,000 mg tablet 1,000 mg PO BID #60 tabs 03/24/23 [Rx Last Taken Unknown] Allergy/AdvReac Type Severity Reaction Status Date / Time Penicillins Allergy Hives Verified 12/17/22 15:23 venom-honey bee Allergy Anaphylaxis Verified 12/17/22 15:23 [bee venom (honey bee)] Family History Other Alcoholism Anxiety Arthritis Asthma Cancer Cervical cancer Depression Diabetes Heart disease Hypertension Myocardial infarction Ovarian cancer Surgical History History of tubal ligation Hx of cholecystectomy Hx of cystoscopy Social History Smoking Status: Former smoker alcohol intake: current alcohol intake frequency: holidays/special occasions only substance use type: does not use what type of physical activity do you participate in: walking ROS ROS ED Review of Systems ROS Unobtainable: other Constitutional Constitutional ED: Reports lethargy; Denies chills, fever(s), sweats or weight loss Eyes Eyes: Denies blurry vision, change in vision or diplopia ENT ENT ED: Denies rhinorrhea or sore throat Cardiovascular Cardiovascular: Reports chest pain; Denies orthopnea or racing heartbeat Respiratory/Chest Respiratory/Chest: Reports cough; Denies dyspnea, dyspnea on exertion, orthopnea or sputum Gastrointestinal Gastrointestinal: Reports diarrhea, nausea and vomiting; Denies abdominal pain Genitourinary Genitourinary ED: Denies dysuria, hematuria or urinary frequency Musculoskeletal Musculoskeletal: Denies arthralgias, back pain, myalgias or neck pain Integumentary Denies abscess, Abrasions or rash Neurologic Neurologic: Denies headache(s) or weakness Psychiatric Psychiatric: Denies anxiety, depression or suicidal thoughts Endocrine Endocrinology: Denies polydipsia, polyphagia or polyuria Hematologic/Lymphatic Hematologic/Lymphatic: Denies easy bleeding, easy bruising or lymphadenopathy Allergic/Immunologic Allergic/Immunologic ED: Denies mouth swelling, tongue swelling or urticaria EXAM Physical Exam Const Vital Signs: 03/24/23 07:41 03/24/23 08:35 03/24/23 10:04 Temperature 95.9 F L Temperature Source Temporal Pulse Rate 96 68 Respiratory Rate 20 H 16 Respiratory Effort Normal Blood Pressure 195/126 H 161/100 H Blood Pressure Mean 149 120 Pulse Ox 100 03/24/23 10:15 Temperature Temperature Source Pulse Rate 70 Respiratory Rate 16 Respiratory Effort Blood Pressure 154/95 H Blood Pressure Mean 114 Pulse Ox Positive well nourished and well developed General Appearance ED: well developed and NAD HEENT Reports TM's clear and moist mucous membranes normocephalic and atraumatic; Negative for trauma or tenderness Tympanic Membrane ED: Yes TM's clear Eyes PERRL and EOMs intact bilaterally General Eye ED: Negative for pale conjunctiva or scleral icterus Neck no lymphadenopathy, supple and no JVD General: Negative for tenderness Chest Wall inspection of chest normal and palpation of chest normal Chest: Negative for tenderness Resp normal respiratory effort and clear to auscultation bilaterally Effort and Inspection: Negative for respiratory distress or pain with movement Auscultation: Negative for rhonchi, wheezes or diminished lung sounds Cardio regular rate, regular rhythm, S1 normal heart sound, S2 normal heart sound and no murmurs Peripheral Pulses: pulses 2+ throughout GI normal to inspection, nondistended, normoactive bowel sounds, soft to palpation, non-tender, non-distended and no masses Back/Spine no CVA tenderness and no thoracic nor lumbar tenderness Extremity normal to inspection General Extremety ED: Negative for edema General Extremity: Negative for edema Neuro oriented x3, CN's II-XII intact bilaterally, no sensory deficits noted and gait normal Sensorium / Orientation: awake, alert, oriented to person, oriented to place and oriented to time Motor Exam: strength 5/5 throughout and strength abnormal Psych mental status grossly normal Skin no rashes or lesions noted and no wounds MDM MDM MDM Narrative Medical decision making narrative: Patient with viral type symptoms of cough and vomiting and diarrhea. Work requested that she be tested for COVID. Patient also told me she was off her blood pressure medication as well as her diabetic medications. I did do a COVID flu and RSV testing which all were negative. CBC with differential count of 5.6 with hemoglobin 14 and platelet count of 159. Chemistries unremarkable other than a slightly depressed potassium at 3.3. BUN 11 and creatinine 1.03. Glucose was elevated 438. Troponin was normal at 8. EKG obtained arrival showed a sinus rhythm with rate of 90 bpm with old anterior septal infarct noted. I did order a dose of patient's losartan and metformin. Clinically she looks well. I do not feel she needs any imaging. I will write her prescription for her metformin and losartan. She is advised to follow-up with primary care physician within next 3 to 5 days. Lab Data Attestation: I reviewed the patient's lab results. Labs: Laboratory Results - last 24 hr 03/24/23 08:21 WBC 5.6 RBC 4.81 Hgb 14.0 Hct 42.6 MCV 88.6 MCH 29.1 MCHC 32.9 RDW Std Deviation 39.0 RDW Coeff of Johnnie 12.1 Plt Count 159 MPV 11.0 Immature Gran % (Auto) 0.200 Neut % (Auto) 50.5 Lymph % (Auto) 27.2 [place] % (Auto) 10.6 H Eos % (Auto) 9.9 H Baso % (Auto) 1.6 H Absolute Neuts (auto) 2.8 Absolute Lymphs (auto) 1.51 Nucleated RBC % 0 Sodium 134 L Potassium 3.3 L Chloride 100 Carbon Dioxide 26.0 Anion Gap 8 BUN 11 Creatinine 1.03 H Estim Creat Clear Calc 73.67 Est GFR (MDRD) Af Amer 74 Est GFR (MDRD) Non-Af 62 BUN/Creatinine Ratio 10.7 Glucose 438 H Calcium 8.6 Troponin I High Sens 8 EKG Initial EKG: Attestation: I personally reviewed and interpreted this EKG as follows: Comments: Sinus rhythm with rate of 90 bpm with old anterior septal infarct Prior EKG tracings: available for review Prior: Changed Discharge Plan Triage Chief Complaint: Cold Sx Other Complaint: Nausea/Vomiting/Diarrhea ED Provider: Salena Vera Dx/Rx/DC Orders Clinical Impression: Acute viral syndrome, Acute hyperglycemia, Hypertension Instructions: ED Diabetic Hyperglycemia, ED Hypertension, Established, ED Viral Syndrome (Adult) Prescriptions: New losartan 50 mg tablet 50 mg PO DAILY Qty: 30 0RF metformin 1,000 mg tablet 1,000 mg PO BID Qty: 60 0RF No Action losartan 50 mg tablet 50 mg PO QHS fexofenadine [Najma Allergy] 60 mg tablet 60 mg PO BID sumatriptan succinate [Imitrex] 100 mg tablet See Rx Instructions PO .COMPLEX Rx Instructions: take 1 tab at onset of headache; if no relief, may repeat 1 tab after at least 2 hrs; max = 2 tabs/24 hrs PO famotidine 20 mg tablet 20 mg PO QHS metformin 1,000 mg tablet 1,000 mg PO BID glimepiride 4 mg tablet 4 mg PO QAM Rx Instructions: administer with breakfast gabapentin 100 mg capsule 100 mg PO QHS escitalopram oxalate [Lexapro] 5 mg tablet 5 mg PO QHS oxycodone-acetaminophen [Percocet] 5-325 mg tablet 1 tab PO Q8H PRN (Reason: pain) 3 Days Qty: 14 0RF ciprofloxacin HCl [ciprofloxacin HCl] 500 mg tablet 500 mg PO BID Qty: 5 0RF metoclopramide HCl [metoclopramide HCl] 10 mg tablet 10 mg PO Q6H PRN (Reason: nausea or migraine) Qty: 10 0RF cefdinir 300 mg capsule 300 mg PO BID Qty: 14 0RF codeine sulfate 15 mg tablet 15 mg PO Q6H PRN (Reason: cough) 3 Days Qty: 12 0RF promethazine [promethazine] 25 mg tablet 25 mg PO Q6H PRN PRN (Reason: Nausea) Qty: 10 0RF ondansetron [ondansetron] 4 mg tablet,disintegrating 4 mg PO Q8H PRN PRN (Reason: Nausea) Qty: 10 0RF sulfamethoxazole-trimethoprim [Bactrim DS] 800-160 mg tablet 1 tab PO BID 5 Days Qty: 10 0RF Primary Care Provider: Brett Yanez Referrals: Brett Yaenz MD [Primary Care Provider] - 3-5 Days Disposition Disposition: Home, Self Care Discharge Date/Time: 03/24/23 10:18 Capacity Legal [employer] Reflex Medical hold order details:: IF a medical hold is selected below, a suggested order for a MEDICAL HOLD will reflex upon signing the document. Next of kin: [place] law dictates a PRIORITY LIST for identifying legal decision-maker/legal next of kin in the following order (LNOK): 1st: The patient?s legal guardian, if any 2nd: The patient's spouse (if status is questionable, consult Risk Management) 3rd: The patient?s adult child(praveen) (majority, if multiple children) 4th: The patient?s parents 5th: The patient?s adult siblings (majority, if multiple children siblings)
[2023-03-24 08:29] LABS: Absolute Lymphocyte Count 1.51 X10^3/uL (0.83-4.51); Absolute Neutrophil Count 2.8 X10^3/uL (2.0-7.7); Basophil# 0.09 X10^3/uL; Basophil% 1.6 % (0-1); Eosinophil# 0.55 X10^3/uL; Eosinophils% 9.9 % (0-5); Hematocrit 42.6 % (37-47); Lymphocyte # 1.51 X10^3/ul (0.83-4.51); Lymphocyte % 27.2 % (19-41); Mean Corp Hgb Conc 32.9 g/dL (32-36); Mean Corpuscular Hgb 29.1 pg (27.0-32.0); Mean Corpuscular Volume 88.6 fL (81-99); Monocyte# 0.59 X10^3/uL; Monocyte% 10.6 % (0-10); NRBC Flagged by Analyzer 0 % (0-5); Neutrophil # 2.81 X10^3/uL (2.7-7.7); Neutrophil % 50.5 % (47-70); Platelet Count 159 K/mm3 (150-450); RBC Distribution Width CV 12.1 % (11.6-14.6); Red Blood Count 4.81 M/mm3 (4.2-5.4); White Blood Count 5.6 K/mm3 (4.4-11.0)
[2023-03-24] MEDS: Ondansetron 4 MG/2 ML Vial IV (08:30)
[2023-03-24] MEDS: Losartan Potassium 50 MG Tablet PO (08:30)
[2023-03-24] MEDS: 0.9% Normal Saline (1000mL) 1,000 ML 150 ML IV (08:30)
[2023-03-24 08:46] LABS: Anion Gap 8 (5-15); BUN 11 mg/dL (7-18); BUN/Creat Ratio 10.7 RATIO (10-20); Calcium,Total 8.6 mg/dL (8.5-10.1); Chloride 100 mmol/L (98-107); Creatinine, Serum 1.03 mg/dL (0.55-1.02); EST Glomerular Filtration Rate 62 mL/min (>60); Est Glom Filt Rate - Afr Amer 74 mL/min (>60); Estimated Creatinine Clearance 73.67 ml/min; Glucose 438 mg/dL (74-106); Potassium 3.3 mmol/L (3.5-5.1); Sodium Level 134 mmol/L (136-145); Troponin-I HS (w/2H Reflex) 8 pg/mL (3.0-54.0)
[2023-03-24] MEDS: metFORMIN HCl 1,000 MG Tablet 1000 MG PO (10:03)
[2023-03-24 10:04] VITALS: BP 161/100; PULSE 68; RESP 16
[2023-03-24 10:15] VITALS: BP 154/95; PULSE 70; RESP 16
[2023-03-24 10:24] LABS: Reflex Troponin-HS? (from REC) Y
== END 2023-03-24 10:18 | disposition home or self-care (01) ==
PROVIDERS: Emergency Provider Emergency Medicine; PCP Internal Medicine; Visit Provider Emergency Medicine
DX: B34.9 Viral infection, unspecified (principal); E11.65 Type 2 diabetes mellitus with hyperglycemia; E11.40 Type 2 diabetes mellitus with diabetic neuropathy, unspecified; I10 Essential (primary) hypertension; R07.89 Other chest pain; Z87.891 Personal history of nicotine dependence; Z59.00 Homelessness unspecified; Z90.49 Acquired absence of other specified parts of digestive tract
CPT/HCPCS: 80048; 84484; 85025; 87631; 93005; 99285; J7030; A4216; J2405

== ENCOUNTER 2023-04-29 19:18 | Emergency (ER) | payer MEDICAID, SELFPAY ==
[2023-04-29 19:20] VITALS: BP 186/98; PULSE 95; RESP 18; TEMP 36.7; O2SAT 99; BMI 39.9
--- NOTE | 2023-04-29 19:28 | EX.ED.UPPERE ---
HPI History of Present Illness Chief Complaint: Upper Extremity Injury Informant: patient Narrative Narrative: Patient presents after a fall this morning. She was getting out of her car and slipped in a puddle, falling and injuring her right hand and wrist. She is right-hand dominant. She took ibuprofen earlier this morning and a dose of Tylenol this afternoon. [facility] Medical History (Updated 04/29/23 @ 20:[address] Jessy Goodwin MD) Anemia Anxiety and depression Bilateral carpal tunnel syndrome Bipolar disorder Blister Chronic low back pain Degenerative arthritis Diabetes Dietary restriction Difficulty chewing Ectopic Former smoker Gastric reflux H/O ETOH abuse History of echocardiogram History of edema History of pain when walking History of renal disease History of stress test History of ulceration Homelessness Hydronephrosis Hypertension Injury of head and neck Neuropathy Open wound of both lower extremities Osteoarthritis Paresthesia of upper extremity PTSD (post-traumatic stress disorder) Pyelonephritis Renal stones Right ureteral stone Shortness of breath on exertion Syncope Type 2 diabetes mellitus Urticaria Home Medications losartan 50 mg tablet 50 mg PO QHS blood pressure 11/25/21 [History Last Taken 05/23/22] escitalopram oxalate 5 mg tablet (Lexapro) 5 mg PO QHS depression 01/10/22 [History Last Taken 05/23/22] famotidine 20 mg tablet 20 mg PO QHS reflux 01/10/22 [History Last Taken 05/23/22] fexofenadine 60 mg tablet (Najma Allergy) 60 mg PO BID allergies 01/10/22 [History Last Taken 05/24/22] gabapentin 100 mg capsule 100 mg PO QHS neuropathy 01/10/22 [History Last Taken 05/23/22] glimepiride 4 mg tablet 4 mg PO QAM diabetes 01/10/22 [History Last Taken 05/24/22] metformin 1,000 mg tablet 1,000 mg PO BID diabetes 01/10/22 [History Last Taken 05/24/22] sumatriptan succinate 100 mg tablet (Imitrex) See Rx Instructions PO .COMPLEX Check with primary doctor 01/10/22 [History Last Taken Unknown] oxycodone-acetaminophen 5 mg-325 mg tablet (Percocet) 1 tab PO Q8H PRN pain 3 days #14 tabs 02/19/22 [Rx Last Taken Unknown] ciprofloxacin HCl 500 mg tablet 500 mg PO BID #5 TABLETS 05/26/22 [Rx Last Taken Unknown] cefdinir 300 mg capsule 300 mg PO BID #14 caps 07/08/22 [Rx Last Taken Unknown] metoclopramide HCl 10 mg tablet 10 mg PO Q6H PRN nausea or migraine #10 tabs 07/08/22 [Rx Last Taken Unknown] codeine sulfate 15 mg tablet 15 mg PO Q6H PRN cough 3 days #12 tabs 08/27/22 [Rx Last Taken Unknown] sulfamethoxazole 800 mg-trimethoprim 160 mg tablet (Bactrim DS) 1 tab PO BID 5 days #10 tabs 11/23/22 [Rx Last Taken Unknown] ondansetron 4 mg disintegrating tablet 4 mg PO Q8H PRN PRN Nausea #10 tabs 12/17/22 [Rx Last Taken Unknown] promethazine 25 mg tablet 25 mg PO Q6H PRN PRN Nausea #10 TABLETS 12/17/22 [Rx Last Taken Unknown] losartan 50 mg tablet 50 mg PO DAILY #30 tabs 03/24/23 [Rx Last Taken Unknown] metformin 1,000 mg tablet 1,000 mg PO BID #60 tabs 03/24/23 [Rx Last Taken Unknown] naproxen 500 mg tablet (Naprosyn) 500 mg PO BID PRN pain #20 tabs 04/29/23 [Rx Last Taken Unknown] Allergy/AdvReac Type Severity Reaction Status Date / Time Penicillins Allergy Hives Verified 04/29/23 19:22 venom-honey bee Allergy Anaphylaxis Verified 04/29/23 19:22 [bee venom (honey bee)] Family History Other Alcoholism Anxiety Arthritis Asthma Cancer Cervical cancer Depression Diabetes Heart disease Hypertension Myocardial infarction Ovarian cancer Surgical History History of tubal ligation Hx of cholecystectomy Hx of cystoscopy Social History Smoking Status: Former smoker alcohol intake: current alcohol intake frequency: holidays/special occasions only substance use type: does not use what type of physical activity do you participate in: walking ROS ROS ED Constitutional Constitutional ED: Denies chills or fever(s) Eyes Eyes: Denies discharge from eye(s) ENT ENT ED: Denies discharge from eye(s), rhinorrhea or sore throat Cardiovascular Cardiovascular: Denies chest pain Respiratory/Chest Respiratory/Chest: Denies cough or dyspnea Gastrointestinal Gastrointestinal: Denies abdominal pain, nausea or vomiting Musculoskeletal Musculoskeletal: Reports extremity pain; Denies back pain Integumentary Reports Abrasions; Denies rash Neurologic Neurologic: Denies headache(s) or weakness Psychiatric Psychiatric: Denies anxiety or depression Allergic/Immunologic Allergic/Immunologic ED: Denies lip swelling or urticaria EXAM Physical Exam Const Vital Signs: 04/29/23 19:20 Temperature 98.0 F Temperature Source Temporal Pulse Rate 95 Respiratory Rate 18 Blood Pressure 186/98 H Blood Pressure Mean 127 Pulse Ox 99 Oxygen Delivery Method Room Air Positive well nourished and well developed General Appearance ED: well developed HEENT Reports moist mucous membranes Eyes EOMs intact bilaterally Chest Wall inspection of chest normal and palpation of chest normal Resp normal respiratory effort and clear to auscultation bilaterally Cardio regular rate and regular rhythm GI Palpation: soft Extremity Extremity Narrative: Abrasions noted to the ulnar aspect of the right wrist with mild surrounding edema. No obvious bony deformity. Tenderness diffusely through the metacarpals with no significant deformity. Good cap refill and sensation. No tenderness over the proximal forearm, elbow, or upper arm. Neuro oriented x3, moves all extremities, no focal motor deficits and no sensory deficits noted MDM MDM MDM Narrative Medical decision making narrative: Patient given Naprosyn for pain. X-rays of the right hand and wrist obtained to evaluate for potential fracture. Differential diagnosis includes fracture, dislocation, sprain, strain, contusion. Treatment and Re-Evaluation Narrative: Right hand x-rays per my interpretation will no evidence of fracture. Right wrist x-rays per my interpretation reveal no obvious fracture or dislocation. Radiology interpretation is reviewed. They do feel there is a scapholunate widening suggestive of a sprain or partial tear of the scapholunate ligament. This is reviewed with the patient. She will be placed in a Velcro wrist splint. This way she can remove this to keep her abrasions cleansed and ensure no sign of infection. She will be referred to Dr. Betancourt, on-call for orthopedics. She be given a prescription for naproxen. I will give her a work note. Discharge Plan Triage Chief Complaint: Upper Extremity Injury ED Provider: Jessy Goodwin Dx/Rx/DC Orders Clinical Impression: Right wrist sprain Instructions: ED Wrist Sprain Prescriptions: New naproxen [Naprosyn] 500 mg tablet 500 mg PO BID PRN (Reason: pain) Qty: 20 0RF No Action losartan 50 mg tablet 50 mg PO QHS fexofenadine [Najma Allergy] 60 mg tablet 60 mg PO BID sumatriptan succinate [Imitrex] 100 mg tablet See Rx Instructions PO .COMPLEX Rx Instructions: take 1 tab at onset of headache; if no relief, may repeat 1 tab after at least 2 hrs; max = 2 tabs/24 hrs PO famotidine 20 mg tablet 20 mg PO QHS metformin 1,000 mg tablet 1,000 mg PO BID glimepiride 4 mg tablet 4 mg PO QAM Rx Instructions: administer with breakfast gabapentin 100 mg capsule 100 mg PO QHS escitalopram oxalate [Lexapro] 5 mg tablet 5 mg PO QHS oxycodone-acetaminophen [Percocet] 5-325 mg tablet 1 tab PO Q8H PRN (Reason: pain) 3 Days Qty: 14 0RF ciprofloxacin HCl [ciprofloxacin HCl] 500 mg tablet 500 mg PO BID Qty: 5 0RF metoclopramide HCl [metoclopramide HCl] 10 mg tablet 10 mg PO Q6H PRN (Reason: nausea or migraine) Qty: 10 0RF cefdinir 300 mg capsule 300 mg PO BID Qty: 14 0RF codeine sulfate 15 mg tablet 15 mg PO Q6H PRN (Reason: cough) 3 Days Qty: 12 0RF promethazine [promethazine] 25 mg tablet 25 mg PO Q6H PRN PRN (Reason: Nausea) Qty: 10 0RF ondansetron [ondansetron] 4 mg tablet,disintegrating 4 mg PO Q8H PRN PRN (Reason: Nausea) Qty: 10 0RF sulfamethoxazole-trimethoprim [Bactrim DS] 800-160 mg tablet 1 tab PO BID 5 Days Qty: 10 0RF losartan 50 mg tablet 50 mg PO DAILY Qty: 30 0RF metformin 1,000 mg tablet 1,000 mg PO BID Qty: 60 0RF Stand Alone Forms: ED Work / School Excuse Primary Care Provider: Brett Yanez Referrals: Brett Yanez MD [Primary Care Provider] - Frandy Betancourt MD [Med Staff - Active Staff] - 5-7 Days Disposition Disposition: Home, Self Care
[2023-04-29] MEDS: Naproxen 500 MG Tablet PO (19:36)
--- NOTE | 2023-04-29 19:45 | RAD_ITS ---
STUDY: X-RAY - RIGHT HAND REASON FOR EXAM: Female, 47 years old. Injury TECHNIQUE: 3 view(s) of the hand. COMPARISON: None. FINDINGS: Normal radiocarpal articulation. Normal distal radioulnar joint. Normal visualized carpal bones. There is calcification adjacent to the scaphoid with possible prior injury. There is nonunited ulnar styloid fracture. Normal carpal articulations Normal carpometacarpal articulation of the thumb. Normal second through fifth carpometacarpal joints. Normal metacarpi. Normal metacarpophalangeal joint of the thumb. Normal interphalangeal joint of the thumb. Normal proximal and distal phalanges of the thumb. Normal metacarpophalangeal joints of the second through fifth fingers. Normal proximal and distal interphalangeal joints of the second through fifth fingers. Normal phalanges of the second through fifth fingers. The soft tissue structures are unremarkable. There is no acute fracture. RAD/Hand Min 3 Views IMPRESSION: No acute fracture seen. Electronically Signed: Daniel Ren MD at 20:45 EST ,
--- NOTE | 2023-04-29 19:45 | RAD_ITS ---
STUDY: X-RAY - RIGHT WRIST REASON FOR EXAM: Female, 47 years old. Injury TECHNIQUE: 3 view(s) of the wrist were obtained. COMPARISON: None. FINDINGS: Normal visualized distal radius. There is nonunited prior fracture of the ulnar styloid. Normal radiocarpal articulation. Normal distal radioulnar articulation. Normal carpal bones. There is widening of the scapholunate articulation suggesting a sprain or tear of the scapholunate interosseous ligament. There is calcification adjacent to the proximal pole of the scaphoid. Normal carpometacarpal articulation of the thumb. Normal second through fifth carpometacarpal articulations. Normal visualized metacarpal bones. The soft tissue structures are unremarkable. RAD/Wrist min 3 Views IMPRESSION: Scapholunate widening suggesting sprain or partial tear of the scapholunate ligament. Electronically Signed: Daniel Ren MD at 20:20 EST ,
--- OUTSIDE RECORDS SUMMARY | 2023-04-29 20:08 | XMS RPT_ITS | CCD ---
Author Name Unknown Address [address] [place] [address] Organization [facility] Care Team Providers Care Flagger Name Role Phone Amado SANTIAGO, Andrez Pinedo Primary Care Provider [phone] Brett Yanez MD Primary Care Provider [phone] BRETT YANEZ MD Primary Care Physician [phone] Allergies Allergy Classification Reported Allergen(s) Allergy Type Date of Onset Reaction(s) Facility (3 sources) Acetaminophen / HYDROcodone Drug Allergy 8 GI Upset [facility] (2 sources) Penicillins Drug Intolerance 6 Anaphylaxis [facility] (3 sources) predniSONE Drug Allergy 4 Vomiting [facility] (3 sources) topiramate Drug Allergy 0 Other: See Comments [facility] Work Phone: (1 source) Penicillins Drug Intolerance 6 Anaphylaxis [facility] (1 source) Penicillin; Translations: [penicillin] Drug Allergy [facility] Medications Current Medications Medication Drug Class(es) Dates Sig (Normalized) Sig (Original) acetaminophen 325 mg / oxyCODONE hydrochloride 5 mg oral tablet (1 source) Opioid Agonist Start: 2021 End: 10-25-2021 take 1 tablet by mouth every six hours as needed for pain Percocet 5 mg-325 mg oral tablet Dose = 1 tab(s), Oral, q6h, PRN As needed for severe pain, X 3 day(s), # 12 tab(s), 0 Refill(s), Kidney stone Renal colic on right side Start Date: 10/22/21 Stop Date: 10/25/21 Status: Ordered ondansetron 4 mg oral tablet (1 source) Serotonin-3 Receptor Antagonist Start: 2021 End: 10-25-2021 Zofran 4 mg oral tablet Dose : 4 mg = 1 tab(s), Oral, q6h, PRN As needed for nausea and vomiting, X 3 day(s), # 12 tab(s), 0 Refill(s), 10/25/21 0:43:00 EDT, Kidney stone Start Date: 10/22/21 Stop Date: 10/25/21 Status: Ordered tamsulosin hydrochloride 0.4 mg oral capsule (1 source) alpha-Adrenergic Christina Start: 2021 End: 10-29-2021 Flomax 0.4 mg oral capsule Dose : 0.4 mg = 1 cap(s), Oral, qDay, # 7 cap(s), 0 Refill(s), Kidney stone Start Date: 10/22/21 Stop Date: 10/29/21 Status: Ordered Completed/Discontinued Medications Medication Drug Class(es) Dates Sig (Normalized) Sig (Original) 8 hr acetaminophen 650 mg extended release oral tablet (3 sources) Start: 07-22-2020 take 1 tablet by mouth every eight hours as needed acetaminophen (TYLENOL ARTHRITIS PAIN) 650 mg CR tablet Take 1 tablet by mouth every 8 hours as needed. 90 tablet 5 07/22/2020 Active Problems Active Problems Problem Classification Problem Date Documented Date Episodic/Chronic Anxiety disorders (3 sources) Posttraumatic stress disorder; Translations: [Post-traumatic stress disorder, unspecified] Onset: 10-14-2013 10-14-2013 Chronic Calculus of urinary tract (3 sources) Kidney stone; Translations: [Calculus of kidney] Onset: 10-07-2021 10-07-2021 Episodic Diabetes mellitus without complication (3 sources) Type 2 diabetes mellitus without complication; Translations: [Type 2 diabetes mellitus without complications] Onset: 07-15-2015 07-15-2015 Chronic Disorders of lipid metabolism (3 sources) Mixed hyperlipidemia; Translations: [Mixed hyperlipidemia] Onset: 07-26-2019 07-26-2019 Chronic Essential hypertension (3 sources) Essential hypertension; Translations: [Essential (primary) hypertension] Onset: 07-15-2015 07-15-2015 Chronic Headache; including migraine (3 sources) Migraine without aura; Translations: [Migraine without aura, not intractable, without status migrainosus] 07-26-2019 Chronic Mood disorders (3 sources) Bipolar disorder; Translations: [Bipolar disorder, unspecified] 06-09-2006 Chronic Other nutritional; endocrine; and metabolic disorders (3 sources) Body mass index 40+ - severely obese; Translations: [Morbid (severe) obesity due to excess calories] Onset: 08-21-2013 03-03-2021 Chronic Other nutritional; endocrine; and metabolic disorders (1 source) Body mass index 30+ - obesity; Translations: [Obesity, unspecified] Onset: 10-07-2021 10-07-2021 Chronic Other skin disorders (1 source) Skin lesion; Translations: [Disorder of the skin and subcutaneous tissue, unspecified] Episodic Urinary tract infections (1 source) Pyelonephritis; Translations: [Tubulo-interstitial nephritis, not specified as acute or chronic] Onset: 10-07-2021 10-07-2021 Episodic Past or Other Problems Problem Classification Problem Date Documented Da te Episodic/Chronic Other non-traumatic joint disorders (3 sources) Pain in unspecified knee; Translations: [Pain in joint, lower leg] Onset: 08-21-2013 03-03-2021 Episodic Results Test Name Value Interpretation Reference Range Facil ity Vital Signs Date Time Vital Sign Value Performing Clinician Facility 10-21-2021 23:10-0400 Body temperature 98.42 [degF] MAYURI CORONADO MD [facility] 10-21-2021 23:10-0400 Diastolic blood pressure 88 mm[Hg] MAYURI CORONADO MD [facility] 10-21-2021 23:10-0400 Heart rate 80 /min MAYURI CORONADO MD [facility] 10-21-2021 23:10-0400 Respiratory rate 18 /min MAYURI CORONADO MD [facility] 10-21-2021 23:10-0400 Systolic blood pressure 117 mm[Hg] MAYURI CORONADO MD [facility] 07-09-2021 07:49-0400 Body weight 92.08 kg Marisela Puente SUPERVISOR INSTRUMENT MAINTENANCE[employer] Work Phone: [facility] 07-09-2021 07:49-0400 Diastolic blood pressure 90 mm[Hg] Marisela Puente SUPERVISOR INSTRUMENT MAINTENANCE.[employer] BUILDING ARCHITECT Work Phone: [facility] 07-09-2021 07:49-0400 Heart rate 89 /min Marisela Puente SUPERVISOR INSTRUMENT MAINTENANCE.[employer] BUILDING ARCHITECT Work Phone: [facility] 07-09-2021 07:49-0400 Respiratory rate 16 /min Marisela Puente SUPERVISOR INSTRUMENT MAINTENANCE.[employer] BUILDING ARCHITECT Work Phone: [facility] 07-09-2021 07:49-0400 SaO2% (BldA) [Mass fraction] 97 % Marisela Puente SUPERVISOR INSTRUMENT MAINTENANCE.[employer] BUILDING ARCHITECT Work Phone: [facility] 07-09-2021 07:49-0400 Systolic blood pressure 140 mm[Hg] Marisela Puente SUPERVISOR INSTRUMENT MAINTENANCE.[employer] BUILDING ARCHITECT Work Phone: [facility] Encounters Encounter Date Encounter Type Care Provider Facility Start: 10-21-2021 End: 2021 Emergency department patient visit MAYURI CORONADO MD [facility] Start: 10-16-2021 Telephone encounter Brett Yanez MD Work Phone: NOC Plan of Treatment Date Care Activity Detail Author Start: 11-06-2021 Influenza vaccination C [facility] Start: 08-06-2021 HPV TESTING HPV TESTING [facility] Start: 08-06-2021 PAP TESTING PAP TESTING [facility] Start: 07-26-2021 Hepatitis B screening URINE AL BUMIN:CREATININE RATIO [facility] Start: 07-26-2021 Hepatitis B surface antibody level LDL CHOLESTEROL [facility] Start: 07-26-2021 HEPATITIS C SCREENING HEPATITIS C [facility] Immunizations Immunization Date Immunization Notes Care Provider Naomy quiles 11-17-2016 influenza, injectabl e, quadrivalent, contains preservative Marisela Puente SUPERVISOR [employer]UMENT MAINTENA[employer]CE.[employer]ILD[employer] ARCHITECT Work Phone: [facility] 12-07-2015 influenza, seasonal, injectable Marisela Puente SUPERVISOR INSTRUMENT MAINTENANCE.[employer]ILD[employer] ARCHITECT Work Phone: [facility] Payers Date Payer Category Payer Medicaid [employer] [id number] 2016-Present [phone] [address] [place] [address] Medicaid [id number] 2016 Medicaid [employer] [employer] [employer] [id number] 2016-Present [phone] [address] [place] [address] Medicaid [id number] Social History Date Type Detail Facility Start: 07-27-2016 [facility] End: 03-08-2003 History of tobacco use Current smoker [facility] Start: 07-26-2020 End: 07-09-2021 Alcohol intake Current non-drinker of alcohol (finding) [facility] Start: 07-24-2019 End: 10-07-2021 History SDOH Alcohol Frequency 1 [facility] Start: 07-24-2019 History SDOH Alcohol Std Drinks 98 [facility] Start: 11-23-2013 History SDOH Alcohol Comment recovering alcohol [facility] Start: 07-24-2019 End: 10-07-2021 History SDOH Social Connections Membership 2 [facility] Start: 07-24-2019 History SDOH Social Connections Living 6 [facility] Start: 07-24-2019 History SDOH Physica l Activity DPW 7 [facility] Start: 07-24-2019 End: 10-07-2021 History SDOH Physical Activity MPS 3 [facility] Start: 07-24-2019 History SDOH Stress 4 [facility] Start: 07-24-2019 Education 14 [facility] Start: 1975 Sex Assigned At Female C [facility] Start: 06-29-2021 End: 10-07-2021 Exposure to SARS-CoV-2 (event) Not sure [facility] End: 03-08-2003 History of tobacco use Cigarette Smoker [facility] Start: 07-27-2016 Tobacco use and exposure Smoke less tobacco non-user [facility] Tobacco smoking status No Smokin g Status Entered [facility] Medical Equipment Procedure Code Equipment Code Equipment Origin al Text Equipment Identifier Dates Start: 04-28-2016 Functional Status Date Assessment Result Facility 2021 Functional Status Assistive Device None A [facility] Mental Status Date Assessment Result Facility 10-21-2021 Mental Status Oriented x 4 [facility] Clinical Notes 07-29-2020 to 10-23-2021 Telephone Encounter - Brigido Moore - 10/16/2021 4:22 PM Olga Puente APRN.CNP - 07/09/2021 8:00 AM EDTTelephone Encounter - Rehana Camacho MA - 07/29/2020 1:09 PM EDT Note Date & Type Note Facility 10-23-2021 Note . MICRO - Microbiology PROCEDURE: Urine Culture [*1] SOURCE: Urine, Clean Catch BODY SITE: COLLECTED DATE/TIME: 10/21/2021 23:43 EDT RECEIVED DATE/TIME: 2021 15:50 EDT START DATE/TIME: 2021 15:51 EDT FREE TEXT SOURCE: FINAL REPORTS Final Report [] Verified Date/Time/Personnel: 10/23/2021 14:32 EDT 10,000 - 50,000 cfu/ml Multiple bacterial morphotypes present. Probable Contamination. Suggest recollection if clinically indicated. Performing Locations *1: This test was performed at: [facility], [address] [place] [address], [id number] , [facility] ([place]) 2021 Hospital Discharge instructions Patient Education 2021 00:42:42 Kidney Stone w/ Colic Kidney Stone with Pain The sharp cramping pain on either side of your lower back and nausea/vomiting that you have are because of a small stone that has formed in the kidney. It is now passing down a narrow tube (ureter) on its way to your bladder. Once the stone reaches your bladder, the pain will often stop. But it may come back as the stone continues to pass out of the bladder and through the urethra. The stone may pass in your urine stream in one piece. The size may be 1/16 inch to 1/4 inch (1 mm to 6 mm). Or, the stone may break up into ananda fragments that you may not even notice. Once you have had a kidney stone, you are at risk of getting another one in the future. There are 4 types of kidney stones. Eighty percent are calcium stones mostly calcium oxalate but also some with calcium phosphate. The other 3 types include uric acid stones, struvite stones (from a preceding infection), and rarely, cystine stones. Most stones will pass on their own, but may take from a few hours to a few days. Sometimes the stone is too large to pass by itself. In that case, the healthcare provider will need to use other ways to remove the stone. These techniques include: Lithotripsy. This uses ultrasound waves to break up the stone. Ureteroscopy. This pushes a basket-like instrument through the urethra and bladder and into the ureter to pull out the stone. Various types of direct surgery through the skin Home care The following are general care guidelines: Drink plenty of fluids. This means at least 12, 8-ounce glasses of fluid mostly water a day. Each time you urinate, do so in a jar. Pour the urine from the jar through the strainer and into the toilet. Continue doing this until 24 hours after your pain stops. By then, if there was a kidney stone, it should pass from your bladder. Some stones dissolve into sand-like particles and pass right through the strainer. In that case, you won t ever see a stone. Save any stone that you find in the strainer and bring it to your healthcare provider to look at. It may be possible to stop certain types of stones from forming. For this reason, it is important to know what kind of stone you have. Try to stay as active as possible. This will help the stone pass. Don't stay in bed unless your pain keeps you from getting up. You may notice a red, pink, or brown color to your urine. This is normal while passing a kidney stone. If you develop pain, you may take ibuprofen or naproxen for pain, unless another medicine was prescribed. If you have chronic liver or kidney disease, talk with your healthcare provider before taking these medicines. Also talk with your provider if you've had a stomach ulcer or GI bleeding. Preventing stones Each year for the next 5 to 7 years, you are at risk that a new stone will form. Your risk is a 50% chance over this time period. The risk is higher if you have a family history of kidney stones or have certain chronic illnesses like hypertension, obesity, or diabetes. But you can make changes to your lifestyle and diet that can lower your risk for another stone. Most kidney stones are made of calcium. The following is advice for preventing another calcium stone. If you don t know the type of stone you have, follow this advice until the cause of your stone is found. Things that help: The most important thing you can do is to drink plenty of fluids each day. See home care above. Eat foods that contain phytates. These include wheat, rice, rye, barley, and beans. Phytates are substances that may lower your risk for any type of stone to form. Eat more fruits and vegetables. Choose those that are high in potassium. Eat foods high in natural citrate like fruit and low-sugar fruit juices. Having too little calcium in your diet can put you at risk for calcium kidney stones. Eat a normal amount of calcium in your diet and talk with your healthcare provider if you are taking calcium supplements. Cutting back on your calcium intake may raise your risk. New research shows that eating calcium-rich and oxalate-rich foods together lowers your risk for stones by binding the minerals in the stomach and intestines before they can reach the kidneys. Limit salt intake to 2 grams (1 teaspoon) per day. Use limited amounts when cooking, and don t add salt at the table. Processed and canned foods are usually high in salt. Spinach, rhubarb, peanuts, cashews, almonds, grapefruit, and grapefruit juice are all high oxalate foods. You should limit how much of these you eat. Or eat them with calcium-rich foods. These include dairy products, dark leafy greens, soy products, and calcium-enriched foods. Reducing the amount of animal meat and high protein foods in your diet may lower your risk for uric acid stones. Avoid excess sugar (sucrose) and fructose (sweetener in many soft drinks) in your diet. If you take vitamin C as a supplement, don't take more than 1,000 mg a day. A dietitian or your healthcare provider can give you information about changes in your diet that will help prevent more kidney stones from forming. Follow-up care Follow up with your healthcare provider, or as advised, if the pain lasts more than 48 hours. Talk with your provider about urine and blood tests to find out the cause of your stone. If you had an X-ray, CT scan, or other diagnostic test, you will be told of any new findings that may affect your care. Call 911 Call 911 if you have any of these: Weakness, dizziness, or fainting When to seek medical advice Call your healthcare provider right away if any of these occur: Pain that is not controlled by the medicine given Repeated vomiting or unable to keep down fluids Fever of 100.4 F (38 C) or higher, or as directed by your healthcare provider Passage of solid red or brown urine (can't see through it) or urine with lots of blood clots Foul-smelling or cloudy urine Unable to pass urine for 8 hours and increasing bladder pressure [id number] [employer] [place] [address]. All rights reserved. This information is not intended as a substitute for professional medical care. Always follow your healthcare professional's instructions. Follow Up Care 10/21/2021 23:10:14 With:JUANIS AGUILAR Address: [address] [place] [id number] [facility] (1) When:2-4 days Comments:Schedule an appointment for close follow-up.Plenty of fluids.Strain your urine.Use Tylenol, Advil or Aleve for pain as needed.Use the Percocet as prescribed for severe pain and Zofran for nausea and vomiting as needed.Use Flomax as prescribed to help with urine outflow.Return to the ED if symptoms worsen. [facility] 2021 Note ORIGINAL EXAMINATION: CT OF THE ABDOMEN AND PELVIS WITHOUT CONTRAST 2021 12:07 am TECHNIQUE: CT of the abdomen and pelvis was performed without the administration of intravenous contrast. Multiplanar reformatted images are provided for review. Automated exposure control, iterative reconstruction, and/or weight based adjustment of the mA/kV was utilized to reduce the radiation dose to as low as reasonably achievable. COMPARISON: None. HISTORY: ORDERING SYSTEM PROVIDED HISTORY: Reason for Exam: RIGHT flank pain FINDINGS: Lower Chest: Lungs are clear. Organs: Normal liver, spleen, pancreas, and adrenal glands. Status post cholecystectomy. Mild right caliectasis secondary to a 1.6 cm calculus in the renal pelvis. Additional nonobstructive right renal calculi measure up to 0.4 cm. No left renal calculi or hydronephrosis. GI/Bowel: Small and large bowel are normal in caliber. Normal appendix. Pelvis: No bladder wall thickening. Normal uterus and ovaries. Surgical clips are present in the pelvis. The surgical clip in the right hemipelvis is posterior to the uterus. Peritoneum/Retroperitoneum: No free fluid or air. Nonaneurysmal aorta. Mildly enlarged martha hepatis lymph nodes measuring up to 1.1 cm. Otherwise, no lymphadenopathy. Bones/Soft Tissues: No aggressive osseous lesion. Mild degenerative changes. IMPRESSION: Mild right caliectasis secondary to a 1.6 cm calculus in the renal pelvis. Additional smaller nonobstructive right nephrolithiasis. A surgical clip in the right hemipelvis posterior to the uterus could represent migration of a tubal ligation clip. Correlation with surgical history recommended. I have personally reviewed the images of this examination and agree with the resident's findings and interpretation. Interpreted by: Nate Palumbo MD Preliminary Report By: Palomo Rizzo Electronically signed By Nate Palumbo MD Dictated Date: 2021 12:16:42 AM Prelim Date: 2021 12:24:30 AM Sign Date: 2021 12:46:19 AM Ordering Provider: [facility] 2021 Note Discharge Instructions Thank you for allowing [facility] to assist you with your healthcare needs. The following is important discharge information regarding your hospital visit. Diagnosis from Today's Visit Kidney stone Flank pain Renal colic on right side What to Do Next Instructions from Your Care Team No qualifying data available. Post Acute Orders No qualifying data available. You Need to Schedule the Following Appointments Follow Up with JUANIS AGUILAR When Within 2-4 days Why: Schedule an appointment for close follow-up. Plenty of fluids. Strain your urine. Use Tylenol, Advil or Aleve for pain as needed. Use the Percocet as prescribed for severe pain and Zofran for nausea and vomiting as needed. Use Flomax as prescribed to help with urine outflow. Return to the ED if symptoms worsen. Where: [address] [place] [id number] [facility] (1) Allergies penicillin Medications Please ask your primary doctor or pharmacist before taking any other medication not listed, including over the counter drugs, herbal medications, vitamins and or supplements as they may interact with your home medications. What How Much When Why Instructions Last Dose New acetaminophen-oxyCODONE (Percocet 5 mg-325 mg oral tablet) 1 tab(s) by mouth Every 6 hours as needed for As needed for severe pain Kidney stone Renal colic on right side Duration: 3 Days Printed Prescription New ondansetron (Zofran 4 mg oral tablet) 1 tab(s) by mouth Every 6 hours as needed for As needed for nausea and vomiting Kidney stone Duration: 3 Days Printed Prescription New tamsulosin (Flomax 0.4 mg oral capsule) 1 cap by mouth Once a day Kidney stone Duration: 7 Days Printed Prescription Please take this list to your next doctor s visit. Bring all medications you take, including over the counter medications, herbals and other supplements with you to your doctor s visit. Patients and families are reminded to discard old lists and to update any records with all medication providers or retail pharmacies. Education Materials Kidney Stone with Pain The sharp cramping pain on either side of your lower back and nausea/vomiting that you have are because of a small stone that has formed in the kidney. It is now passing down a narrow tube (ureter) on its way to your bladder. Once the stone reaches your bladder, the pain will often stop. But it may come back as the stone continues to pass out of the bladder and through the urethra. The stone may pass in your urine stream in one piece. The size may be 1/16 inch to 1/4 inch (1 mm to 6 mm). Or, the stone may break up into ananda fragments that you may not even notice. Once you have had a kidney stone, you are at risk of getting another one in the future. There are 4 types of kidney stones. Eighty percent are calcium stones mostly calcium oxalate but also some with calcium phosphate. The other 3 types include uric acid stones, struvite stones (from a preceding infection), and rarely, cystine stones. Most stones will pass on their own, but may take from a few hours to a few days. Sometimes the stone is too large to pass by itself. In that case, the healthcare provider will need to use other ways to remove the stone. These techniques include: Lithotripsy. This uses ultrasound waves to break up the stone. Ureteroscopy. This pushes a basket-like instrument through the urethra and bladder and into the ureter to pull out the stone. Various types of direct surgery through the skin Home care The following are general care guidelines: Drink plenty of fluids. This means at least 12, 8-ounce glasses of fluid mostly water a day. Each time you urinate, do so in a jar. Pour the urine from the jar through the strainer and into the toilet. Continue doing this until 24 hours after your pain stops. By then, if there was a kidney stone, it should pass from your bladder. Some stones dissolve into sand-like particles and pass right through the strainer. In that case, you won t ever see a stone. Save any stone that you find in the strainer and bring it to your healthcare provider to look at. It may be possible to stop certain types of stones from forming. For this reason, it is important to know what kind of stone you have. Try to stay as active as possible. This will help the stone pass. Don't stay in bed unless your pain keeps you from getting up. You may notice a red, pink, or brown color to your urine. This is normal while passing a kidney stone. If you develop pain, you may take ibuprofen or naproxen for pain, unless another medicine was prescribed. If you have chronic liver or kidney disease, talk with your healthcare provider before taking these medicines. Also talk with your provider if you've had a stomach ulcer or GI bleeding. Preventing stones Each year for the next 5 to 7 years, you are at risk that a new stone will form. Your risk is a 50% chance over this time period. The risk is higher if you have a family history of kidney stones or have certain chronic illnesses like hypertension, obesity, or diabetes. But you can make changes to your lifestyle and diet that can lower your risk for another stone. Most kidney stones are made of calcium. The following is advice for preventing another calcium stone. If you don t know the type of stone you have, follow this advice until the cause of your stone is found. Things that help: The most important thing you can do is to drink plenty of fluids each day. See home care above. Eat foods that contain phytates. These include wheat, rice, rye, barley, and beans. Phytates are substances that may lower your risk for any type of stone to form. Eat more fruits and vegetables. Choose those that are high in potassium. Eat foods high in natural citrate like fruit and low-sugar fruit juices. Having too little calcium in your diet can put you at risk for calcium kidney stones. Eat a normal amount of calcium in your diet and talk with your healthcare provider if you are taking calcium supplements. Cutting back on your calcium intake may raise your risk. New research shows that eating calcium-rich and oxalate-rich foods together lowers your risk for stones by binding the minerals in the stomach and intestines before they can reach the kidneys. Limit salt intake to 2 grams (1 teaspoon) per day. Use limited amounts when cooking, and don t add salt at the table. Processed and canned foods are usually high in salt. Spinach, rhubarb, peanuts, cashews, almonds, grapefruit, and grapefruit juice are all high oxalate foods. You should limit how much of these you eat. Or eat them with calcium-rich foods. These include dairy products, dark leafy greens, soy products, and calcium-enriched foods. Reducing the amount of animal meat and high protein foods in your diet may lower your risk for uric acid stones. Avoid excess sugar (sucrose) and fructose (sweetener in many soft drinks) in your diet. If you take vitamin C as a supplement, don't take more than 1,000 mg a day. A dietitian or your healthcare provider can give you information about changes in your diet that will help prevent more kidney stones from forming. Follow-up care Follow up with your healthcare provider, or as advised, if the pain lasts more than 48 hours. Talk with your provider about urine and blood tests to find out the cause of your stone. If you had an X-ray, CT scan, or other diagnostic test, you will be told of any new findings that may affect your care. Call 911 Call 911 if you have any of these: Weakness, dizziness, or fainting When to seek medical advice Call your healthcare provider right away if any of these occur: Pain that is not controlled by the medicine given Repeated vomiting or unable to keep down fluids Fever of 100.4 F (38 C) or higher, or as directed by your healthcare provider Passage of solid red or brown urine (can't see through it) or urine with lots of blood clots Foul-smelling or cloudy urine Unable to pass urine for 8 hours and increasing bladder pressure [id number] The [employer]. [address] [place] [address]. All rights reserved. This information is not intended as a substitute for professional medical care. Always follow your healthcare professional's instructions. Additional Information VACCINATE! IT SAVES LIVES! Members of the community who have not yet received the COVID-19 vaccine and would like to receive it can visit one of [facility] vaccine clinics. There are many vaccine clinic locations within the [facility]. For locations and available times, please visit [email or web address]. It is important to note that some COVID mobile vaccine clinics are held outdoors and may be canceled in rainy or stormy conditions. To learn more about pediatric vaccinations (ages 5-11), we invite you to visit the [facility] webpage. [email or web address] To learn more about the COVID-19 vaccine, we invite you to visit the [facility] website for a list of frequently asked questions. [email or web address] [email or web address] [facility] Patient Portal Access Instructions: Stay connected with your healthcare team and access your personal medical information anytime with the [facility] Patient Portal. If you would like a full copy of your medical records please contact the [facility] Medical Records Department Wednesday through Wednesday between 8a.m. and 4:30p.m. Please follow the directions below to access the portal: 1.Access the email account you provided upon registration to the [facility].2.Look for an invitation email from [facility].3.Open the email and access the invitation link: Accept Invitation to [facility].Fill in the required thomson to create your account. Sign into [email or web address] with your username and password that you created in the above steps to stay up to date. You can then view a summary of results, a summary of your visits, and the ability to download your summaries to your computer or send the information securely to a physician. Remember that your healthcare information is confidential, so carefully consider who you will allow to register on the [facility] Patient Portal for access to your information. You can also access the [facility] Patient Portal on the [facility]. Simply click on Health Records under Health Data and then click on the [employer] logo. HOW TO SAFELY DISPOSE OF PRESCRIPTION MEDICATIONS Please use one of the following methods to safely dispose of your unused medications. 1.Use a drug disposal kit: the drug disposal pouch allows you to safely discard your old and unused drugs. Ask your nurse to give you one when you are discharged.2.Visit a local take-back location: Many local pharmacies and police departments have programs that collect old and unwanted prescription drugs. Call your local pharmacy or go to http://iexerci.se.Giraffic/5A1Xu2u to find one close to you.3.Make use of household items: Use cat litter or old coffee grounds to dispose medications if other options are not available. Mix your drugs with these household products, seal them in an airtight container and throw it into the garbage. Call [facility]: [phone] to be sure your drugs can be disposed of in this way. Some medicines may require a different approach.4.Never flush your medications down the toilet. IF YOU HAVE BEEN PRESCRIBED AN OPIOIDS FOR PAIN If you have been prescribed an opioid (such as hydrocodone, oxycodone or morphine), it is critical to understand the possible side effects and risks of opioid pain medications. Even when taken as directed, opioids can have several side effects including: Tolerance, meaning you might need to take more of a medication for the same pain relief. Nausea, vomiting and/or constipation. Sleepiness, dizziness, dry mouth, confusion, depression or itching. Physical dependence, meaning you have withdrawal symptoms when a medication is stopped ? this can develop within a few days. KNOW YOUR RESPONSIBILITIES It is important to know exactly how much and how often to take the opioid pain medications you are prescribed. Never take opioids in higher amounts or more often than prescribed. Do not combine opioids with alcohol or other drugs that cause drowsiness, such as benzodiazepines, also known as benzos, including diazepam and alprazolam, muscle relaxants or sleep aids. Never sell or share prescription opioids. This is illegal. Store opioids in a secure place and out of reach of others (including children, family, friends and visitors). The last page(s) of this document has been signed and retained as a CHART COPY Signatures Patient Education Materials Kidney Stone w/ Colic Medication Leaflets My discharge plan and instructions have been reviewed and explained to me and I,UCHE SMALL understand my current condition and have read and understand these discharge instructions. I have received a written copy of the plan/instructions. If I have questions, I am aware that I should contact my doctor. Patient/Academic Interventionist Signature: Date/Time: Relationship to Patient: ____ Witness Name/Signature: Date/Time: [facility] 2021 Note ORIGINAL EXAMINATION: CT OF THE ABDOMEN AND PELVIS WITHOUT CONTRAST 2021 12:07 am TECHNIQUE: CT of the abdomen and pelvis was performed without the administration of intravenous contrast. Multiplanar reformatted images are provided for review. Automated exposure control, iterative reconstruction, and/or weight based adjustment of the mA/kV was utilized to reduce the radiation dose to as low as reasonably achievable. COMPARISON: None. HISTORY: ORDERING SYSTEM PROVIDED HISTORY: Reason for Exam: RIGHT flank pain FINDINGS: Lower Chest: Lungs are clear. Organs: Normal liver, spleen, pancreas, and adrenal glands. Status post cholecystectomy. Mild right caliectasis secondary to a 1.6 cm calculus in the renal pelvis. Additional nonobstructive right renal calculi measure up to 0.4 cm. No left renal calculi or hydronephrosis. GI/Bowel: Small and large bowel are normal in caliber. Normal appendix. Pelvis: No bladder wall thickening. Normal uterus and ovaries. Surgical clips are present in the pelvis. The surgical clip in the right hemipelvis is posterior to the uterus. Peritoneum/Retroperitoneum: No free fluid or air. Nonaneurysmal aorta. Mildly enlarged martha hepatis lymph nodes measuring up to 1.1 cm. Otherwise, no lymphadenopathy. Bones/Soft Tissues: No aggressive osseous lesion. Mild degenerative changes. IMPRESSION: Mild right caliectasis secondary to a 1.6 cm calculus in the renal pelvis. Additional smaller nonobstructive right nephrolithiasis. A surgical clip in the right hemipelvis posterior to the uterus could represent migration of a tubal ligation clip. Correlation with surgical history recommended. I have personally reviewed the images of this examination and agree with the resident's findings and interpretation. Interpreted by: Nate Palumbo MD Preliminary Report By: Palomo Rizzo Electronically signed By Nate Palumbo MD Dictated Date: 2021 12:16:42 AM Prelim Date: 2021 12:24:30 AM Sign Date: 2021 12:46:19 AM Ordering Provider: MAYURI CORONADO [facility] 10-21-2021 Evaluation + Plan note Diagnostic Tests PendingUrine Culture 10/21/21 [facility] 10-16-2021 Miscellaneous Notes PATIENT INFORMATION Record ID: [id number] Patient Name: [facility]: [facility] [place]: [facility] Attending: Meghan Kaufman Center: [facility] Medicine INSTRUCTIONS All Clear If patient has a Physician- transfer to Appointment Center at [phone] at end of script If patient has [facility] Physician- transfer to [facility] [phone] (CARE) If patient has a community physician, transfer to [facility]; Any other physician recommend patient follow-up with their physician at the end of script All Clear All Clear All Clear SURVEY INFORMATION Medical/Nurse Marketing Research Coordinator: Brigido Garcia 1. Your discharge instructions are important in guiding you through the recovery process. Is there anything I could help you clarify on your discharge instructions? (Standard Question) No 2. Do you have your follow up appointment related to your hospital stay scheduled within the next 30 days? (Standard Question) No, patient prefers to schedule in own time 3. Do you have all the necessary equipment and supplies at home? (Standard Question) Yes 4. Many patients have concerns about their medications once they are home. Do you have any questions about getting or taking your medications? (Standard Question) No 5. Do you have any new or different symptoms? (Standard Question) No documented in this encounter [facility] 10-09-2021 Note HNO ID: [id number] Author: Leon Almazan II, MD Service: Hospital Medicine Author Type: Physician Type: Progress Notes Filed: 10/09/2021 7:08 AM Note Text: Called to patient's room around 11:30 pm last night regarding new symptom of right arm numbness, pain and weakness. The patient states that the pain started after her cipro was finished, and around 11:00 pm her arm began to get numb and weak. She denied other neurological issues, such as numbness, tingling, focal weakness in other places, change in vision, confusion, dizziness, difficulty with speech or swallowing. Glucose in low 200's. On exam, she had no drift but demonstrated 4/5 strength in the RUE. She reports numbness across most dermatomes in that limb. All other limbs neurologically intact. NIHSS 1. No rashes. Sent patient for CT Head, which was negative. Symptoms did not worsen throughout the remainder of the evening. Possibly a reaction to Cipro. TIA/Stroke less likely. Recommend reassessment in the am. [facility] 10-09-2021 Note HNO ID: [id number] Author: Yosef Perez MD Service: Urology Author Type: Resident Type: Progress Notes Filed: 10/09/2021 6:50 AM Note Text: Attestation signed by Carlos Manuel Kelly MD at 10/09/2021 4:23 PM Discussed with the resident and agree with resident's findings and plan as documented in the resident's note. Patient discharged UROLOGY PROGRESS NOTE PATIENT NAME: Uche Small DATE OF : 1975 ADMISSION DATE: 10/06/2021 6:21 PM Subjective No acute events overnight. Denies flank pain bilaterally. Slept well. Voiding without issue. Objective VS: BP 120/75 Pulse 79 Temp 36.3 ?C (97.3 ?F) (Temporal) Resp 17 Ht 157.5 cm (5' 2 ) Wt 96.2 kg (212 lb 1.3 oz) LMP 06/24/2021 SpO2 96% BMI 38.79 kg/m? I AND O - 24hr: Intake/Output Summary (Last 24 hours) at 10/09/2021 0646 Last data filed at 10/08/2021 1800 Gross per 24 hour Intake 240 ml Output 800 ml Net -560 ml Physical Exam: General: Neck: Resp: Abdomen: No acute distress Supple Normal effort Soft, non-tender, nondistended : No CVA TTP bilaterally. No suprapubic tenderness. Labs and Imaging Studies LABS: BMP: Glucose (mg/dL) Date Value 10/08/2021 278 07/26/2020 218 Potassium (mmol/L) Date Value 10/08/2021 4.0 07/26/2020 4.4 Sodium (mmol/L) Date Value 10/08/2021 130 07/26/2020 138 Chloride (mmol/L) Date Value 10/08/2021 96 07/26/2020 98 CO2 (mmol/L) Date Value 10/08/2021 25 07/26/2020 29 Creatinine (mg/dL) Date Value 10/08/2021 0.69 07/26/2020 0.71 BUN (mg/dL) Date Value 10/08/2021 9 07/26/2020 16 Anion Gap (mmol/L) Date Value 10/08/2021 9 07/26/2020 11 Calcium (mg/dL) Date Value 07/26/2020 9.8 Calcium, Total (mg/dL) Date Value 10/08/2021 9.3 CBC: Hemoglobin (g/dL) Date Value 10/09/2021 12.2 07/26/2020 13.8 Hematocrit (%) Date Value 10/09/2021 38.1 07/26/2020 44.8 WBC (k/uL) Date Value 10/09/2021 8.01 07/26/2020 8.98 Platelet Count (k/uL) Date Value 10/09/2021 213 07/26/2020 232 Urinalysis: Specific Nunnelly, Ur Date Value Ref Range Status 07/26/2020 1.020 1.005 - 1.030 Final Glucose, Urine Date Value Ref Range Status 07/26/2020 1+ (A) Negative mg/dL Final Bilirubin, Urine Date Value Ref Range Status 07/26/2020 Negative Negative Final Ketones, Urine Date Value Ref Range Status 07/26/2020 Negative Negative Final Hemoglobin/Blood,Ur Date Value Ref Range Status 07/26/2020 Negative Negative Final Protein, Urine Date Value Ref Range Status 07/26/2020 1+ (A) Negative Final Urobilinogen, Urine Date Value Ref Range Status 02/15/2015 0.2 Normal (<1.1) EU Final Nitrites Date Value Ref Range Status 07/26/2020 Negative Negative Final WBC, Urine Date Value Ref Range Status 07/26/2020 0-5 0 - 5 /HPF Final Urine Culture: No results found for: URCUL RADIOLOGY: CT Abd/Pel WO IVCON (10/06/21): IMPRESSION: Right renal pelvis 1.3 cm stone near the ureteropelvic junction. There is no secondary hydronephrosis but there is moderate right perinephric stranding suggesting that this stone is causing intermittent obstruction of the adjacent ureteropelvic junction. Smaller nonobstructing right calyceal stones. Mild colonic diverticulosis. The right-sided tubal ligation clip has become dislodged and is now a few centimeters away from its expected right adnexal location. Left-sided tubal ligation clip in satisfactory position. Assessment and Plan ASSESSMENT: 45 year old female who presents with a 1.3cm right renal pelvis calculus and pyelonephritis. PLAN: -Leukocytosis resolved this AM -Continue treatment of pyelonephritis with IV antibiotics per primary team (IV Cipro) -Plan for outpatient cystoscopy, retrograde pyelograms, right ureteroscopy, laser lithotripsy, and right ureteral stent insertion as outpatient next week with Dr. Multani once infection resolved -Urine culture: no growth day 1 -Urology to sign off; please page resident with questions or concerns Yosef Chris PGY-3, Urology October 09, 2021 Pager #[phone] [facility] 10-08-2021 Note HNO ID: [id number] Author: Meghan Kaufman MD Service: Hospital Medicine Author Type: Physician Type: Progress Notes Filed: 10/08/2021 1:32 PM Note Text: DEPARTMENT OF HOSPITAL MEDICINE PROGRESS NOTE Hospital Medicine/Primary Attending: Meghan Kaufman MD NIGHT AND WEEKEND COVERAGE: [place] COVERAGE: After 7pm, please call cross cover pager #[phone] Subjective INTERVAL HPI: Pt seen and examined. MEDICATIONS: Reviewed Objective PHYSICAL EXAM: BP 117/74 Pulse 94 Temp (Src) 97 (Temporal) Resp 18 Ht 5' 2 (1.58m) Wt 212 lb 1.3 oz (96.2kg) SpO2 98% LMP 06/24/2021 BMI 38.78 kg/(m2). O2 Therapy: Room Air Physical Exam Performed GENERAL: Alert, no distress, cooperative NECK: Supple LUNGS: Lungs clear to auscultation CARDIAC: Normal S1 and S2; no rubs, murmurs, or gallops ABDOMEN: Abdomen soft, non-tender, BS normal, No masses or organomegaly EXTREMITIES: Extremities normal, no deformities, edema, clubbing or skin discoloration NEURO: Grossly normal cognition, motor function, and cranial nerves III-XII DATA: Diagnostic tests reviewed for today's visit: Most recent labs and imaging results. CBC, Coags, BMP, Mg, Phos Recent Labs 10/08/21 0631 10/07/21 0644 10/06/21 2133 WBC 12.58* 15.86* 19.47* HB 12.3 12.5 12.3 HCT 36.4 36.9 35.9* PLT 196 193 213 NA 130* 134* 133* K 4.0 3.9 4.0 CHLOR 96* 99 99 CO2 25 23 23 BUN 9 11 12 CREAT 0.69 0.70 0.70 GLUC 278* 312* 334* CA 9.3 8.5 8.3* Current Facility-Administered Medications Medication Dose Route Frequency - NaCl 0.9% iv flush bag 20 mL INTRAVENOUS PRN - morphine 2 mg injection 2 mg INTRAVENOUS q 3 H PRN - ondansetron (PF) 2 mg injection (ZOFRAN) 2 mg INTRAVENOUS q 6 H PRN - ciprofloxacin iv piggyback 400 mg in D5W 200 mL (CIPRO) 400 mg INTRAVENOUS q 12 H - acetaminophen 650 mg tab(s) (TYLENOL) 650 mg ORAL q 6 H PRN - docusate sodium 100 mg cap(s) (COLACE) 100 mg ORAL BID PRN - melatonin 3 mg tab(s) 3 mg ORAL AT BEDTIME PRN - dextrose 15 gram/32 mL 15 g (TRUEPLUS) 15 g ORAL PRN Or - glucagon 1 mg injection 1 mg INTRAMUSCULAR PRN Or - dextrose 10% iv bolus 12.5 g INTRAVENOUS PRN - heparin 5,000 Units injection 5,000 Units SUBCUTANEOUS q 12 H - sodium chloride 0.9 % (flush) 3-5 mL (BD POSIFLUSH) 3-5 mL INTRAVENOUS q 12 H - insulin lispro pen (rapid acting) (HumaLOG KWIKPEN) SUBCUTANEOUS w MEALS - gabapentin 100 mg cap(s) (NEURONTIN) 100 mg ORAL AT BEDTIME - glimepiride 4 mg tab(s) (AMARYL) 4 mg ORAL DAILY WITH BREAKFAST - losartan 50 mg tab(s) (COZAAR) 50 mg ORAL DAILY - famotidine 20 mg tab(s) (PEPCID) 20 mg ORAL AT BEDTIME - aspirin 81 mg chewable tab(s) 81 mg ORAL DAILY - escitalopram oxalate 5 mg tab(s) (LEXAPRO) 5 mg ORAL DAILY Assessment/Plan Problem List Nephrolithiasis POA: Status not on file Bipolar disorder, unspecified (HCC) POA: Yes Essential hypertension with goal blood pressure less than 140/90 POA: Yes Hyperlipidemia, mixed POA: Yes Obesity (BMI 30-39.9) POA: Status not on file Pyelonephritis POA: Status not on file # Nephrolithiasis POA: yes -CT reveals Right renal pelvis 1.3 cm stone near the ureteropelvic junction evaluated by urology, does not appear to be obstructive -NPO -urology following; may plan for cystoscopy, retrograde pyelograms, and right ureteral stent insertion this admission? ? # Pyelonephritis POA: yes -urine culture pending -continue IV antibiotics ? # Leukocytosis -2/ #2 -trend ? # HTN -monitor BP trends -continue lisinopril, hydrochlorothiazide ? # Hyperlipidemia, mixed POA: Yes -continue statin ? # Obesity (BMI 30-39.9) POA: yes -lifestyle modifications-weight loss encouraged Medication and Non-Pharmacologic VTE Prophylaxis/Anticoagulants Anticoagulant AND Antiplatelet Medications (From admission, onward) Start Dose Route Frequency Last Action Ordered Stop 10/07/21 1300 aspirin 81 mg chewable tab(s) 81 mg ORAL DAILY Given, 10/08 0945 10/07/21 1231 -- 10/07/21 0030 heparin 5,000 Units injection (Medical Risk Categories) 5,000 Units SUBCUTANEOUS EVERY 12 HOURS Given, 10/07 1941 10/07/21 0011 -- 10/07/21 0015 activity - mobilize patient ([place], [place]) VTE Prophylaxis: VTE prophylaxis appropriate Disposition: Home Plan of care discussed with: Provider, RN, Patient SIGNATURE: Meghan Kaufman MD PATIENT NAME: Uche Small Disclaimer: Portions of this note may have been generated using [employer] voice recognition software. Reasonable efforts were made to correct any dictation errors that resulted due to the programming of this software but some may still be present. Portions of this note including HPI, ROS, impression/plan, and examination may have been copied forward from 10/07/2021 to October 08, 2021 as to provide important historical information essential in contributing to medical decision making. Documentation has been reviewed and edited as necessary to suppor (more content not included)... [facility] 10-08-2021 Note HNO ID: [id number] Author: AUGUSTUS Linares Service: Care Management Author Type: Broadcast Producer Type: Care Mgt Progress Note Filed: 10/08/2021 11:55 AM Note Text: CARE MANAGEMENT PROGRESS NOTE SERVICE DATE: 10/08/2021 SERVICE TIME: 11:54 AM LOS: 1 day SW met with pt at bedside and provided pt with additional resources for pt's county. Pt appreciative and had no other questions or concerns at this time. SIGNATURE: AUGUSTUS Linares PATIENT NAME: Uche Small DATE: October 08, 2021 TIME: 11:54 AM PAGER/CONTACT #: [phone] [facility] 10-08-2021 Note HNO ID: [id number] Author: Eric Goins MD Service: Urology Author Type: Physician Type: Progress Notes Filed: 10/08/2021 3:50 PM Note Text: UROLOGY PROGRESS NOTE PATIENT NAME: Uche Small DATE OF : 1975 ADMISSION DATE: 10/06/2021 6:21 PM Subjective No acute events overnight. Denies fevers and chills overnight. Intermittent right flank yesterday. Denies flank pain at rest this AM. Labs not drawn yet this AM. Objective VS: BP 118/65 Pulse 95 Temp 36.7 ?C (98.1 ?F) (Oral) Resp 19 Ht 157.5 cm (5' 2 ) Wt 96.2 kg (212 lb 1.3 oz) LMP 06/24/2021 SpO2 96% BMI 38.79 kg/m? I AND O - 24hr: Intake/Output Summary (Last 24 hours) at 10/08/2021 0646 Last data filed at 10/07/2021 1300 Gross per 24 hour Intake 600 ml Output -- Net 600 ml Physical Exam: General: Neck: Resp: Abdomen: No acute distress Supple Normal effort Soft, non-tender, nondistended : No CVA TTP bilaterally. No suprapubic tenderness. Labs and Imaging Studies LABS: BMP: Glucose (mg/dL) Date Value 10/07/2021 312 07/26/2020 218 Potassium (mmol/L) Date Value 10/07/2021 3.9 07/26/2020 4.4 Sodium (mmol/L) Date Value 10/07/2021 134 07/26/2020 138 Chloride (mmol/L) Date Value 10/07/2021 99 07/26/2020 98 CO2 (mmol/L) Date Value 10/07/2021 23 07/26/2020 29 Creatinine (mg/dL) Date Value 10/07/2021 0.70 07/26/2020 0.71 BUN (mg/dL) Date Value 10/07/2021 11 07/26/2020 16 Anion Gap (mmol/L) Date Value 10/07/2021 12 07/26/2020 11 Calcium (mg/dL) Date Value 07/26/2020 9.8 Calcium, Total (mg/dL) Date Value 10/07/2021 8.5 CBC: Hemoglobin (g/dL) Date Value 10/07/2021 12.5 07/26/2020 13.8 Hematocrit (%) Date Value 10/07/2021 36.9 07/26/2020 44.8 WBC (k/uL) Date Value 10/07/2021 15.86 07/26/2020 8.98 Platelet Count (k/uL) Date Value 10/07/2021 193 07/26/2020 232 Urinalysis: Specific Nunnelly, Ur Date Value Ref Range Status 07/26/2020 1.020 1.005 - 1.030 Final Glucose, Urine Date Value Ref Range Status 07/26/2020 1+ (A) Negative mg/dL Final Bilirubin, Urine Date Value Ref Range Status 07/26/2020 Negative Negative Final Ketones, Urine Date Value Ref Range Status 07/26/2020 Negative Negative Final Hemoglobin/Blood,Ur Date Value Ref Range Status 07/26/2020 Negative Negative Final Protein, Urine Date Value Ref Range Status 07/26/2020 1+ (A) Negative Final Urobilinogen, Urine Date Value Ref Range Status 02/15/2015 0.2 Normal (<1.1) EU Final Nitrites Date Value Ref Range Status 07/26/2020 Negative Negative Final WBC, Urine Date Value Ref Range Status 07/26/2020 0-5 0 - 5 /HPF Final Urine Culture: No results found for: URCUL RADIOLOGY: CT Abd/Pel WO IVCON (10/06/21): IMPRESSION: Right renal pelvis 1.3 cm stone near the ureteropelvic junction. There is no secondary hydronephrosis but there is moderate right perinephric stranding suggesting that this stone is causing intermittent obstruction of the adjacent ureteropelvic junction. Smaller nonobstructing right calyceal stones. Mild colonic diverticulosis. The right-sided tubal ligation clip has become dislodged and is now a few centimeters away from its expected right adnexal location. Left-sided tubal ligation clip in satisfactory position. Assessment and Plan ASSESSMENT: 45 year old female with a 1.3cm right renal pelvis calculus. PLAN: -NPO -CBC, BMP ordered; discussed with nursing this AM -Plan for treatment of pyelonephritis with IV antibiotics -If leukocytosis worsening and pain persistent, will consider cystoscopy, retrograde pyelograms, and right ureteral stent insertion this admission -Urine culture: in process -Please page resident division chief with fevers (temp>100.4F) or hypotension (SBP<90) Yosef Perez PGY-3, Urology October 08, 2021 Pager #[phone] Attending Note I have seen examined and evaluated the patient and discussed the case with the resident physician. I agree with the assessment and plan as documented in the resident?s note. Signature: Eric Goins MD Date: 10/08/2021 Time: 3:50 PM [facility] 10-07-2021 Note HNO ID: [id number] Author: Sandhya Nelson RPh Service: Pharmacy Author Type: Pharmacist Type: Plan of Care Filed: 10/07/2021 4:02 PM Note Text: PHARMACY MEDICATION REVIEW Patient Name: Uche Small : 1975 Medication history obtained from pharmacy fill records in [facility] and over the phone. Medication list updated based on fill history as well as notes from [facility]. Changes to patient's medication list detailed below. The below information represents the best possible medication history: Yes Medication history completed by: Pharmacist: Sandhya Nelson RPh Source of history: Pharmacy records: [facility], [facility] records and [facility] Medication nonadherence identified: Unable to assess Reconciliation completed: Yes Completed by: Sandhya Nelson PharmD, [facility] Based Pharmacist Ext: [phone] All EMS EDUCATOR medications addressed by LIP Patient interested in Bedside Delivery Services or using [facility] OP Pharmacy at discharge? Unable to assess Preferred outpatient pharmacy: [facility] [employer] [facility] [address] [place] [address] [address] [facility] [phone] Allergies: Penicillins Anaphylaxis Prednisone Vomiting Comment:GI upset Topamax [Topiramate] Other: See Comments Comment:Decrease appetite and changes in taste Vicodin [Hydrocodon* GI Upset Prior to Admission Medications Prescriptions Last Dose Informant Patient Reported? Taking? acetaminophen (TYLENOL ARTHRITIS PAIN) 650 mg CR tablet No No Sig: Take 1 tablet by mouth every 8 hours as needed. aspirin 81 mg chewable tablet Yes Yes Sig: Take 81 mg by mouth once daily. escitalopram oxalate (LEXAPRO) 5 mg tablet Yes Yes Sig: Take 5 mg by mouth once daily. famotidine (PEPCID) 20 mg tablet Yes Yes Sig: Take 20 mg by mouth daily at bedtime. fexofenadine (LINDA) 60 mg tablet Yes Yes Sig: Take 60 mg by mouth twice daily. gabapentin (NEURONTIN) 100 mg capsule Yes Yes Sig: Take 100 mg by mouth daily at bedtime. glimepiride (AMARYL) 4 mg tablet Yes Yes Sig: Take 4 mg by mouth daily with breakfast. levonorgestrel (MIRENA) 20 mcg/24 hr (5 years) IUD No No Sig: Inserted in office losartan (COZAAR) 50 mg tablet Yes Yes Sig: Take 50 mg by mouth once daily. metFORMIN (GLUCOPHAGE) 1,000 mg tablet 10/05/2021 at Unknown time No Yes Sig: Take 1 tablet by mouth twice daily with meals. Facility-Administered Medications: None Sandhya Nelson RPh 10/07/2021 [facility] 10-07-2021 Note HNO ID: [id number] Author: AUGUSTUS Linares Service: Care Management Author Type: Broadcast Producer Type: Care Mgt Progress Note Filed: 10/07/2021 3:48 PM Note Text: CARE MANAGEMENT PROGRESS NOTE SERVICE DATE: 10/07/2021 SERVICE TIME: 3:46 PM LOS: 0 days Needs Prior to Discharge: To Be Determined;Discharge Prescriptions;Discharge Transportation SW met with pt at bedside to discuss housing and food insecurities. Pt states she's had the same landlord for about 4 years and has never had issues but is now being evicted. Pt was to start a new job yesterday but is now admitted to the hospital. SW provided pt with resources for [facility] however pt states she lives in [facility]. SW to provide pt with additional resources tomorrow. SIGNATURE: AUGUSTUS Linares PATIENT NAME: Uche Small DATE: October 07, 2021 TIME: 3:46 PM PAGER/CONTACT #: [phone] [facility] 10-07-2021 Note HNO ID: [id number] Author: Meghan Kaufman MD Service: Hospital Medicine Author Type: Physician Type: Plan of Care Filed: 10/07/2021 2:34 PM Note Text: Patient seen and examined. Nephrolithiasis. Pyelonephritis. Urology consulted. Continue IV antibiotics. Monitor. [facility] 10-07-2021 Note HNO ID: [id number] Author: Zoey Ray RN Service: Care Management Author Type: Registered Nurse Type: Care Mgt Initial Assessment Filed: 10/07/2021 12:30 PM Note Text: CARE MANAGEMENT: ASSESSMENT AND DISCHARGE PLAN SERVICE DATE: October 07, 2021 SERVICE TIME: 1224 PRIMARY CARE PHYSICIAN: Andrez Fischer MD Primary Contact: Extended Emergency Contact Information Primary Emergency Contact: Ben Small Mobile Relation: Spouse ADMISSION STATUS: Inpatient Insurance Provider: SHERYL TORRES MEDICAID NEEDS PRIOR TO DISCHARGE Needs Prior to Discharge: To Be Determined;Discharge Prescriptions;Discharge Transportation POTENTIAL TRANSITION PLANS Home Based on clinical judgement, Care Management will address the following needs: Social Patient's perception of need for this admission: flank pain ADVANCE DIRECTIVES Current Advance Directive: None Statistical Developer Attempted to Assist with AD Completion: Yes Action: Education Provided;Patient Unwilling MS/BEHAVIOR Baseline Mental Status Prior to this Illness what was the patient's Baseline Mental Status?: Alert AND Oriented Prior to this illness, has anyone described the patient having any of the following behaviors?: Not Applicable Relationship of the informant to the patient:: Self READMISSION Last Discharge Date: N/A Is this Within the Past 30 days? From what level of care did patient present?: Home Last discharge within 30 days: No PATIENT SCREEN Payor gaps or opportunities/considerations/situ ation: Medicaid/OOS Medicaid Under the care of a PCP?: Yes, External Provider Provider Name: Renata Last Known Visit: August 2021 Does the patient have transportation upon discharge?: No Situation: Car is at [facility] Recommendation: discharge [facility] Use of any community resources?: No Does the patient have a stable and supportive living arrangement and home setting?: No Situation: Patient is being evicted from home Recommendation: SW consult Are there any potential risks or gaps identified by risk/functional/fall,etc. scores in the EMR?: No Any potential risks related to substance abuse and/or behavioral health?: Yes Situation: PTSD, Bipolar Based on clinical judgement, Care Management will address the following needs: Social CAREGIVER ASSESSMENT Caregiver is ready, willing and able to meet the patient's needs as recommended by the inter-professional team:: No Caregiver needed SOCIAL Living Arrangements: Home Lives With: Spouse Financial Resources: Employed (Suposed to start a job last night) Supportive Patient Contact:: Unable to assess at this time Contact Resources: Family Family Name/Phone: Ben Small [phone] Is Patient Psychosocially Complex?: Yes, refer to Social Work Contact Resources: Family Family Name/Phone: Ben Small [phone] Health Literacy How often do you need to have someone help you when you read instructions, pamphlets, or other written material from your doctor or pharmacy? : 1 - Never How confident are you filling out medical forms by yourself?: 1 - Extremely Food Insecurity: Food Insecurity Present ? ? Worried About Running Out of Food in the Last Year: Often true ? ? Ran Out of Food in the Last Year: Often true Financial Resource Strain: High Risk ? ? Difficulty of Paying Living Expenses: Very hard Transportation Needs: Unmet Transportation Needs ? ? Lack of Transportation (Medical): Yes ? ? Lack of Transportation (Non-Medical): Yes Housing Stability: Low Risk ? ? Unable to Pay for Housing in the Last Year: No ? ? Number of Places Lived in the Last Year: 1 ? ? Unstable Housing in the Last Year: No No medical discharge barriers identified at this time. No behavioral/cognitive discharge barriers identified at this time. No functional discharge barriers identified at this time. FREEDOM OF CHOICE EXPLAINED: Are you interested in bedside delivery of your medications? No Is Patient Psychosocially Complex?: Yes, refer to Social Work ASSESSMENT AND PLAN: Initial assessment completed with patient at bedside. Pt. Lives with spouse in a multilevel home with a flight of steps to enter. Pt. Reports that she is being evicted from her home. States she does not have a working refrigerator, and has difficulty affording food. Pt. States she has does not have a plan after eviction. Discussed SW consult to assist with housing/resources. She is in agreement. 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 Her car is at [facility]. She will need transportation at d/c. Discussed utilization of Discharge [facility]. + PCP - Dr. Yanez in [place]. + RX coverage, [facility] [place]. Discharge plan is home with self Care. Referral to SW. SIGNATURE: Zoey Ray RN PATIENT NAME: Uche Small DATE: October 07, 2021 TIME: 12:23 PM CONTACT #: [phone] [facility] 07-09-2021 Note HNO ID: [id number] Author: Marisela Puente APRN.GREEN BUILDING ARCHITECT Service: ? Author Type: Nurse Practitioner Type: Progress Notes Filed: 07/09/2021 1:35 PM Note Text: This is a 45 year old female who presents today with: Patient presents with: Acute Visit: Blisters on feet HISTORY OF PRESENT ILLNESS: Uche Small is a 45 year old female. Patient presents with: Acute Visit: Blisters on feet Here in the office for foot lesions and pain. Bilateral Leg sores for the past year. Refers that the redness improve with antibiotics but another lesion will appear shortly after. Sores have appeared to bottom of feet and skin will peel. History of uncontrolled diabetes. Last A1C in July 2020 was 10.5. Lost glucometer during moving. Is not taking any medication at this time. Refers that she does not eat much. Patient began to get very irritated when discussing her diabetes. Refers that the medication and eating a low-carb diet caused her sugar to go even higher. Wants refills on all her medications today but when attempting to discuss diabetes care including checking sugars she began to become angry. Discussed with the patient that I have concerns that her uncontrolled sugar could be contributing to leg sores that will not heal. Offered patient antibiotic and lab work/new glucometer to reevaluate her diabetes. She got very angry and left the office. Did not get to due a full physical exam. PAST MEDICAL HISTORY: PAST MEDICAL HISTORY Diagnosis Date - Bipolar disorder, unspecified (HCC) - Migraine without aura, without mention of intractable migraine without mention of status migrainosus - Other psoriasis - Rash and other nonspecific skin eruption - Recovering alcoholic (HCC) - Substance abuse (HCC) PAST SURGICAL HISTORY Procedure Laterality Date - CHOLECYSTECTOMY 09/1999 Cholecystectomy - LAPS ABD PRTMANDOMENTUM DX W/WO SPEC BR/WA SPX 04/04/1999 Laparoscopy L SALPINGECTOMY - TUBAL LIGATION HX 06/19/2003 - TX ECTOPIC W/O SALPINGAND/OOPHORECTOMY 03/1999 Ectopic ALLERGIES Penicillins, Prednisone, Topamax [Topiramate], and Vicodin [Hydrocodone-Acetaminophen] MEDICATIONS Current Outpatient Medications Medication Sig - meloxicam (MOBIC) 15 mg tablet Take 1 tablet by mouth once daily. Take with food. - insulin glargine (LANTUS SOLOSTAR U-100 INSULIN) 100 unit/mL (3 mL) Inject 80 Units subcutaneously twice daily. - insulin aspart U-100 (NOVOLOG FLEXPEN U-100 INSULIN) 100 unit/mL (3 mL) Inject 60 Units subcutaneously three times daily before meals. - glimepiride (AMARYL) 4 mg tablet TAKE TWO TABLETS BY MOUTH ONCE DAILY IN THE MORNING PRIOR TO MEALS - metFORMIN (GLUCOPHAGE) 1,000 mg tablet Take 1 tablet by mouth twice daily with meals. - acetaminophen (TYLENOL ARTHRITIS PAIN) 650 mg CR tablet Take 1 tablet by mouth every 8 hours as needed. - etodolac (LODINE) 400 mg tablet TAKE ONE TABLET BY MOUTH 2 TIMES A DAY (Patient not taking: Reported on 01/21/2021 ) - atorvastatin (LIPITOR) 40 mg tablet Take 1 tablet by mouth once daily. - lisinopril-hydroCHLOROthiazide (PRINZIDE,ZESTORETIC) 10-12.5 mg per tablet Take 1 tablet by mouth once daily. - clindamycin (CLEOCIN) 300 mg capsule Take 1 capsule by mouth four times daily. - hydroCHLOROthiazide (HYDRODIURIL, ESIDRIX) 25 mg tablet Take 1 tablet by mouth once daily. - blood sugar diagnostic (BLOOD GLUCOSE TEST) test strip Test blood sugar(s) 3-4 times daily. Dx: Type 2 DM - Controlled E11.9 Insulin: Yes - cyclobenzaprine (FLEXERIL) 10 mg tablet Take 1 tablet by mouth three times daily as needed for Muscle Spasm. - propranolol (INDERAL) 20 mg tablet Take 1 tablet by mouth twice daily. - cholecalciferol, Vitamin D3, (VITAMIN D3) 1,250 mcg (50,000 unit) cap capsule Take 1 capsule by mouth one time a week. - insulin glargine (BASAGLAR KWIKPEN U-100 INSULIN) 100 unit/mL (3 mL) Inject 80 Units subcutaneously twice daily. - insulin needles, DISPOSABLE, (BD INSULIN PEN NEEDLE UF) 31 gauge x 16 Use as directed once daily with insulin pen DM: yes Insulin: yes DX:E11.9 - SUMAtriptan (IMITREX) 100 mg tablet Take 1 tablet by mouth as needed for Migraine Headache (see administration instructions). - blood sugar diagnostic (BLOOD GLUCOSE TEST) test strip Test blood sugar(s) 4 times daily. Dx: Type 2 DM - Uncontrolled E11.65 Insulin: Yes - Lancets lancets Test blood sugar(s) 3-4 times daily. Dx: Type 2 DM - Controlled E11.9 Insulin: Yes - blood sugar diagnostic (FREESTYLE LITE STRIPS) test strip Test blood sugar(s) 2x daily. Dx: E11.65. Insulin: No - cyanocobalamin (VITAMIN B-12) 1,000 mcg tab Take 1 tablet by mouth once daily. - calcium carb-mag ox-zinc gluc 333-133-5 mg tab Take 1 tablet by mouth once daily (Patient not taking: Reported on 01/21/2021 ) - COMPOUNDED PRESCRIPTION OTC B12 100 mcg daily - COMPOUNDED PRESCRIPTION OTC Calcium, magnesium , zinc 500 mg - takes one 500 mg tablet in the morning (more content not included)... [facility] 07-09-2021 History of Present illness Narrative This is a 45 year old female who presents today with: Patient presents with: Acute Visit: Blisters on feet HISTORY OF PRESENT ILLNESS: cUhe Small is a 45 year old female. Patient presents with: Acute Visit: Blisters on feet Here in the office for foot lesions and pain. Bilateral Leg sores for the past year. Refers that the redness improve with antibiotics but another lesion will appear shortly after. Sores have appeared to bottom of feet and skin will peel. History of uncontrolled diabetes. Last A1C in July 2020 was 10.5. Lost glucometer during moving. Is not taking any medication at this time. Refers that she does not eat much. Patient began to get very irritated when discussing her diabetes. Refers that the medication and eating a low-carb diet caused her sugar to go even higher. Wants refills on all her medications today but when attempting to discuss diabetes care including checking sugars she began to become angry. Discussed with the patient that I have concerns that her uncontrolled sugar could be contributing to leg sores that will not heal. Offered patient antibiotic and lab work/new glucometer to reevaluate her diabetes. She got very angry and left the office. Did not get to due a full physical exam. PAST MEDICAL HISTORY: PAST MEDICAL HISTORY Diagnosis Date Bipolar disorder, unspecified (HCC) Migraine without aura, without mention of intractable migraine without mention of status migrainosus Other psoriasis Rash and other nonspecific skin eruption Recovering alcoholic (HCC) Substance abuse (HCC) PAST SURGICAL HISTORY Procedure Laterality Date CHOLECYSTECTOMY 09/1999 Cholecystectomy LAPS ABD PRTM&OMENTUM DX W/WO SPEC BR/WA SPX 04/04/1999 Laparoscopy L SALPINGECTOMY TUBAL LIGATION HX 06/19/2003 TX ECTOPIC W/O SALPING&/OOPHORECTOMY 03/1999 Ectopic ALLERGIES Penicillins, Prednisone, Topamax [Topiramate], and Vicodin [Hydrocodone-Acetaminophen] MEDICATIONS Current Outpatient Medications Medication Sig meloxicam (MOBIC) 15 mg tablet Take 1 tablet by mouth once daily. Take with food. insulin glargine (LANTUS SOLOSTAR U-100 INSULIN) 100 unit/mL (3 mL) Inject 80 Units subcutaneously twice daily. insulin aspart U-100 (NOVOLOG FLEXPEN U-100 INSULIN) 100 unit/mL (3 mL) Inject 60 Units subcutaneously three times daily before meals. glimepiride (AMARYL) 4 mg tablet TAKE TWO TABLETS BY MOUTH ONCE DAILY IN THE MORNING PRIOR TO MEALS metFORMIN (GLUCOPHAGE) 1,000 mg tablet Take 1 tablet by mouth twice daily with meals. acetaminophen (TYLENOL ARTHRITIS PAIN) 650 mg CR tablet Take 1 tablet by mouth every 8 hours as needed. etodolac (LODINE) 400 mg tablet TAKE ONE TABLET BY MOUTH 2 TIMES A DAY (Patient not taking: Reported on 01/21/2021 ) atorvastatin (LIPITOR) 40 mg tablet Take 1 tablet by mouth once daily. lisinopril-hydroCHLOROthiazide (PRINZIDE,ZESTORETIC) 10-12.5 mg per tablet Take 1 tablet by mouth once daily. clindamycin (CLEOCIN) 300 mg capsule Take 1 capsule by mouth four times daily. hydroCHLOROthiazide (HYDRODIURIL, ESIDRIX) 25 mg tablet Take 1 tablet by mouth once daily. blood sugar diagnostic (BLOOD GLUCOSE TEST) test strip Test blood sugar(s) 3-4 times daily. Dx: Type 2 DM - Controlled E11.9 Insulin: Yes cyclobenzaprine (FLEXERIL) 10 mg tablet Take 1 tablet by mouth three times daily as needed for Muscle Spasm. propranolol (INDERAL) 20 mg tablet Take 1 tablet by mouth twice daily. cholecalciferol, Vitamin D3, (VITAMIN D3) 1,250 mcg (50,000 unit) cap capsule Take 1 capsule by mouth one time a week. insulin glargine (BASAGLAR KWIKPEN U-100 INSULIN) 100 unit/mL (3 mL) Inject 80 Units subcutaneously twice daily. insulin needles, DISPOSABLE, (BD INSULIN PEN NEEDLE UF) 31 gauge x 5/16 Use as directed once daily with insulin pen DM: yes Insulin: yes DX:E11.9 SUMAtriptan (IMITREX) 100 mg tablet Take 1 tablet by mouth as needed for Migraine Headache (see administration instructions). blood sugar diagnostic (BLOOD GLUCOSE TEST) test strip Test blood sugar(s) 4 times daily. Dx: Type 2 DM - Uncontrolled E11.65 Insulin: Yes Lancets lancets Test blood sugar(s) 3-4 times daily. Dx: Type 2 DM - Controlled E11.9 Insulin: Yes blood sugar diagnostic (FREESTYLE LITE STRIPS) test strip Test blood sugar(s) 2x daily. Dx: E11.65. Insulin: No cyanocobalamin (VITAMIN B-12) 1,000 mcg tab Take 1 tablet by mouth once daily. calcium carb-mag ox-zinc gluc 333-133-5 mg tab Take 1 tablet by mouth once daily (Patient not taking: Reported on 01/21/2021 ) COMPOUNDED PRESCRIPTION OTC B12 100 mcg daily COMPOUNDED PRESCRIPTION OTC Calcium, magnesium , zinc 500 mg - takes one 500 mg tablet in the morning and one 500 mg tablet in the evening (Patient not taking: Reported on 01/21/2021 ) COMPOUNDED PRESCRIPTION OTC Tylenol for arthritis - 650 mg tablet - takes two tablets in morning and 2 tablets at night levonorgestrel (MIRENA) 20 mcg/24 hr (5 years) IUD Inserted in office FERROUS SULFATE (IRON ORAL) Take by mouth. (Patient not taking: Reported on 01/21/2021 ) Compression Knee Highs KNEE HIGH COMPRESSION STOCKINGS 30-40 MM. DX: EDEMA. Bilateral leg swelling. lancets (FREESTYLE LANCETS) 28 gauge misc Test blood sugar(s) 2x daily. Dx: E11.65. Insulin: No No current facility-administered medications for this visit. FAMILY HISTORY Problem Relation Age of Onset Hypertension Mother Diabetes Mother Asthma Mother Alcohol/Drug Mother Heart Paternal Grandfather [place] Social History Tobacco Use Smoking status: Former Smoker Quit date: 03/08/2003 Years since quittin.3 Smokeless tobacco: Never Used Vaping Use Vaping Use: Never used Substance Use Topics Alcohol use: No Comment: recovering alcohol Drug use: No Comment: past history milind REVIEW OF SYSTEMS GENERAL: No weight loss, malaise or fevers/chills HEENT: Negative for frequent or significant headaches, No changes in hearing or vision. NECK: Negative for lumps, goiter, pain and significant neck swelling RESPIRATORY: Negative for cough, hemoptysis, wheezing, dyspnea or shortness of breath CARDIOVASCULAR: Negative for chest pain, leg swelling, orthopnea, or palpitations GI: No nausea, vomiting, or diarrhea/constipation. No hematochezia/melena. No heartburn or reflux symptoms. : No history of dysuria, frequency or incontinence MUSCULOSKELETAL: Negative for joint pain or swelling. SKIN: + Leg lesions ENDOCRINE: Negative for cold or heat intolerance, polyuria, polydipsia and goiter NEURO: No history of headaches, syncope, paralysis, seizures or tremors MOOD: Negative for depression, anxiety, or suicidal ideation. EXAM: BP 140/90 Pulse 89 Resp 16 Wt 92.1 kg (203 lb) LMP 06/24/2021 SpO2 97% BMI 37.13 kg/m PHYSICAL EXAM: General Appearance: Well appearing, alert, in no acute distress, well-hydrated, well nourished. Skin: Various lower leg lesions/Ulcers noted. Mild erythema and crusting. Head: Normocephalic, no masses, lesions, tenderness or abnormalities. Eyes: Anicteric sclera. Extraocular movements are intact. . ASSESSMENT/PLAN: 1. Skin lesion - ICD9: 709.9, ICD10: L98.9 - Reoccurring lesions are more than likely due to uncontrolled diabetes. - Offered antibiotics but patient got angry and left. - Unable to completed full exam. Marisela Puente APRN.GREEN BUILDING ARCHITECT This note was partially generated using [employer] voice recognition system. Note was reviewed for accuracy. There may be minor misspellings or grammar miscues with [employer] voice recognition. documented in this encounter [facility] 05-24-2021 Note HNO ID: [id number] Author: Francis Meyers APRN.JAD Service: ? Author Type: Nurse Practitioner Type: Progress Notes Filed: 05/24/2021 11:40 AM Note Text: Subjective HPI Nontoxic-appearing female presents urgent care chief complaint eye redness and pruritus. Duration symptoms 1 day. Associated symptom eye redness pruritus sneezing and nasal discharge. Patient states both eyes are affected left eye is greater than right. Denies any eye trauma. Denies any contact lens use. Denies any OTC medication use. Denies any visual changes floaters flashes lights pain with EOMs fever body aches chills nausea vomiting abdominal pain cough chest pain shortness of breath or change in bowel or bladder habits. Past medical history prescription medication use allergies reviewed. .Patient presents with: Eye Problem: left, red, burning x 1 day PAST MEDICAL HISTORY Diagnosis Date - Bipolar disorder, unspecified (HCC) - Migraine without aura, without mention of intractable migraine without mention of status migrainosus - Other psoriasis - Rash and other nonspecific skin eruption - Recovering alcoholic (HCC) - Substance abuse (HCC) PAST SURGICAL HISTORY Procedure Laterality Date - CHOLECYSTECTOMY 09/1999 Cholecystectomy - LAPS ABD PRTMANDOMENTUM DX W/WO SPEC BR/WA SPX 04/04/1999 Laparoscopy L SALPINGECTOMY - TUBAL LIGATION HX 06/19/2003 - TX ECTOPIC W/O SALPINGAND/OOPHORECTOMY 03/1999 Ectopic ALLERGIES Penicillins, Prednisone, Topamax [Topiramate], and Vicodin [Hydrocodone-Acetaminophen] MEDICATIONS meloxicam (MOBIC) 15 mg tablet Take 1 tablet by mouth once daily. Take with food. insulin glargine (LANTUS SOLOSTAR U-100 INSULIN) 100 unit/mL (3 mL) Inject 80 Units subcutaneously twice daily. insulin aspart U-100 (NOVOLOG FLEXPEN U-100 INSULIN) 100 unit/mL (3 mL) Inject 60 Units subcutaneously three times daily before meals. glimepiride (AMARYL) 4 mg tablet TAKE TWO TABLETS BY MOUTH ONCE DAILY IN THE MORNING PRIOR TO MEALS metFORMIN (GLUCOPHAGE) 1,000 mg tablet Take 1 tablet by mouth twice daily with meals. acetaminophen (TYLENOL ARTHRITIS PAIN) 650 mg CR tablet Take 1 tablet by mouth every 8 hours as needed. atorvastatin (LIPITOR) 40 mg tablet Take 1 tablet by mouth once daily. lisinopril-hydroCHLOROthiazide (PRINZIDE,ZESTORETIC) 10-12.5 mg per tablet Take 1 tablet by mouth once daily. clindamycin (CLEOCIN) 300 mg capsule Take 1 capsule by mouth four times daily. hydroCHLOROthiazide (HYDRODIURIL, ESIDRIX) 25 mg tablet Take 1 tablet by mouth once daily. blood sugar diagnostic (BLOOD GLUCOSE TEST) test strip Test blood sugar(s) 3-4 times daily. Dx: Type 2 DM - Controlled E11.9 Insulin: Yes cyclobenzaprine (FLEXERIL) 10 mg tablet Take 1 tablet by mouth three times daily as needed for Muscle Spasm. propranolol (INDERAL) 20 mg tablet Take 1 tablet by mouth twice daily. cholecalciferol, Vitamin D3, (VITAMIN D3) 1,250 mcg (50,000 unit) cap capsule Take 1 capsule by mouth one time a week. insulin glargine (BASAGLAR KWIKPEN U-100 INSULIN) 100 unit/mL (3 mL) Inject 80 Units subcutaneously twice daily. insulin needles, DISPOSABLE, (BD INSULIN PEN NEEDLE UF) 31 gauge x 5/16 Use as directed once daily with insulin pen DM: yes Insulin: yes DX:E11.9 SUMAtriptan (IMITREX) 100 mg tablet Take 1 tablet by mouth as needed for Migraine Headache (see administration instructions). blood sugar diagnostic (BLOOD GLUCOSE TEST) test strip Test blood sugar(s) 4 times daily. Dx: Type 2 DM - Uncontrolled E11.65 Insulin: Yes Lancets lancets Test blood sugar(s) 3-4 times daily. Dx: Type 2 DM - Controlled E11.9 Insulin: Yes blood sugar diagnostic (FREESTYLE LITE STRIPS) test strip Test blood sugar(s) 2x daily. Dx: E11.65. Insulin: No cyanocobalamin (VITAMIN B-12) 1,000 mcg tab Take 1 tablet by mouth once daily. COMPOUNDED PRESCRIPTION OTC B12 100 mcg daily COMPOUNDED PRESCRIPTION OTC Tylenol for arthritis - 650 mg tablet - takes two tablets in morning and 2 tablets at night levonorgestrel (MIRENA) 20 mcg/24 hr (5 years) IUD Inserted in office Compression Knee Highs KNEE HIGH COMPRESSION STOCKINGS 30-40 MM. DX: EDEMA. Bilateral leg swelling. lancets (FREESTYLE LANCETS) 28 gauge misc Test blood sugar(s) 2x daily. Dx: E11.65. Insulin: No etodolac (LODINE) 400 mg tablet TAKE ONE TABLET BY MOUTH 2 TIMES A DAY calcium carb-mag ox-zinc gluc 333-133-5 mg tab Take 1 tablet by mouth once daily COMPOUNDED PRESCRIPTION OTC Calcium, magnesium , zinc 500 mg - takes one 500 mg tablet in the morning and one 500 mg tablet in the evening FERROUS SULFATE (IRON ORAL) Take by mouth. FAMILY HISTORY Problem Relation Age of Onset - Hypertension Mother - Diabetes Mother - Asthma Mother - Alcohol/Drug Mother - Heart Paternal Grandfather [place] Social History Tobacco Use - Smoking status: Former Smoker Quit date: 03/08/2003 Years since quittin.2 - Smokeless tob (more content not included)... [facility] 04-25-2021 Note Patient Outreach (RAMOS TNAV) UCHE SMALL ([id number]) 1975 F Date Time Provider Department 04/25/21 NO PCP (HIST) SERA During your visit today, we recorded the following information about you: Nestor Kelly 04/25/2021 10:40 AM Signed POPULATION HEALTH NAVIGATION OUTREACH Action/FYI Scheduled PODI consult dated 07/26/20 Pt identified by name and : YES, via phone Outreach Outcome/Action Spoke to patient or caregiver: Patient scheduled Reason for Outreach Care Gap or Scheduling/Wellness visits Payer: Payor: [place] MEDICA[place] / Plan: [place]ICA[place] / Product Type: Medicaid / Care Gap Reviewed:: TAMARA Reminder: Reminder note to check Health Maintenance for items below Health Maintenance items due: COVID-19 VACCINE(1) Never done DEPRESSION SCREENING Never done HIV SCREENING Never done DTAP,TDAP,TD(1 - Tdap) Never done MAMMOGRAM Never done DIABETIC FOOT EXAM due on 11/17/2017 DILATED RETINAL EXAM due on 07/12/2018 INFLUENZA(1) due on 11/06/2020 HBA1C due on 01/26/2021 PAP TESTING due on 08/06/2021 HPV TESTING due on 08/06/2021 Message Sent to Practice: No Navigation Signature: Nestor Kelly April 25, 2021 10:39 AM Allergies As of Date: 04/25/2021 Noted Allergy Reaction PENICILLINS 10/28/2005 10 - Anaphylaxis PREDNISONE 10/13/2013 11 - Vomiting Comments: GI upset TOPAMAX (TOPIRAMATE) 02/22/2020 14 - Other: See Comments Comments: Decrease appetite and changes in taste VICODIN (HYDROCODONE-ACETAMINOPHE* 018 8 - GI Upset Date Reviewed: 01/21/2021 Reviewed by: Danay Floyd - Fully Assessed Prescriptions as of 04/25/2021 - meloxicam (MOBIC) 15 mg tablet Take 1 tablet by mouth once daily. Take with food. - insulin glargine (LANTUS SOLOSTAR U-100 INSULIN) 100 unit/mL (3 mL) Inject 80 Units subcutaneously twice daily. - insulin aspart U-100 (NOVOLOG FLEXPEN U-100 INSULIN) 100 unit/mL (3 mL) Inject 60 Units subcutaneously three times daily before meals. - glimepiride (AMARYL) 4 mg tablet TAKE TWO TABLETS BY MOUTH ONCE DAILY IN THE MORNING PRIOR TO MEALS - metFORMIN (GLUCOPHAGE) 1,000 mg tablet Take 1 tablet by mouth twice daily with meals. - acetaminophen (TYLENOL ARTHRITIS PAIN) 650 mg CR tablet Take 1 tablet by mouth every 8 hours as needed. - etodolac (LODINE) 400 mg tablet TAKE ONE TABLET BY MOUTH 2 TIMES A DAY - atorvastatin (LIPITOR) 40 mg tablet Take 1 tablet by mouth once daily. - lisinopril-hydroCHLOROthiazide (PRINZIDE,ZESTORETIC) 10-12.5 mg per tablet Take 1 tablet by mouth once daily. - clindamycin (CLEOCIN) 300 mg capsule Take 1 capsule by mouth four times daily. - hydroCHLOROthiazide (HYDRODIURIL, ESIDRIX) 25 mg tablet Take 1 tablet by mouth once daily. - blood sugar diagnostic (BLOOD GLUCOSE TEST) test strip Test blood sugar(s) 3-4 times daily. Dx: Type 2 DM - Controlled E11.9 Insulin: Yes - cyclobenzaprine (FLEXERIL) 10 mg tablet Take 1 tablet by mouth three times daily as needed for Muscle Spasm. - propranolol (INDERAL) 20 mg tablet Take 1 tablet by mouth twice daily. - cholecalciferol, Vitamin D3, (VITAMIN D3) 1,250 mcg (50,000 unit) cap capsule Take 1 capsule by mouth one time a week. - insulin glargine (BASAGLAR KWIKPEN U-100 INSULIN) 100 unit/mL (3 mL) Inject 80 Units subcutaneously twice daily. - insulin needles, DISPOSABLE, (BD INSULIN PEN NEEDLE UF) 31 gauge x 5/16 Use as directed once daily with insulin pen DM: yes Insulin: yes DX:E11.9 - SUMAtriptan (IMITREX) 100 mg tablet Take 1 tablet by mouth as needed for Migraine Headache (see administration instructions). - blood sugar diagnostic (BLOOD GLUCOSE TEST) test strip Test blood sugar(s) 4 times daily. Dx: Type 2 DM - Uncontrolled E11.65 Insulin: Yes - Lancets lancets Test blood sugar(s) 3-4 times daily. Dx: Type 2 DM - Controlled E11.9 Insulin: Yes - blood sugar diagnostic (FREESTYLE LITE STRIPS) test strip Test blood sugar(s) 2x daily. Dx: E11.65. Insulin: No - cyanocobalamin (VITAMIN B-12) 1,000 mcg tab Take 1 tablet by mouth once daily. - calcium carb-mag ox-zinc gluc 333-133-5 mg tab Take 1 tablet by mouth once daily - COMPOUNDED PRESCRIPTION OTC B12 100 mcg daily - COMPOUNDED PRESCRIPTION OTC Calcium, magnesium , zinc 500 mg - takes one 500 mg tablet in the morning and one 500 mg tablet in the evening - COMPOUNDED PRESCRIPTION OTC Tylenol for arthritis - 650 mg tablet - takes two tablets in morning and 2 tablets at night - levonorgestrel (MIRENA) 20 mcg/24 hr (5 years) IUD Inserted in office - FERROUS SULFATE (IRON ORAL) Take by mouth. - Compression Knee Highs KNEE HIGH COMPRESSION STOCKINGS 30-40 MM. DX: EDEMA. Bilateral leg swelling. - lancets (FREESTYLE LANCETS) 28 gauge misc Test blood sugar(s) 2x daily. Dx: E11.65. Insulin: No Meds Comments as of 05/23/2016: Basaglar replaced the Solostar insulin.-2:54 PM May 23 (more content not included)... [facility] 04-25-2021 Note HNO ID: [id number] Author: Nestor Kelly Service: ? Author Type: ? Type: Progress Notes Filed: 04/25/2021 10:40 AM Note Text: POPULATION HEALTH NAVIGATION OUTREACH Action/FYI Scheduled PODI consult dated 07/26/20 Pt identified by name and : YES, via phone Outreach Outcome/Action Spoke to patient or caregiver: Patient scheduled Reason for Outreach Care Gap or Scheduling/Wellness visits Payer: Payor: [place] MEDICA[place] / Plan: [facility] MEDICAID / Product Type: Medicaid / Care Gap Reviewed:: TMAARA Reminder: Reminder note to check Health Maintenance for items below Health Maintenance items due: COVID-19 VACCINE(1) Never done DEPRESSION SCREENING Never done HIV SCREENING Never done DTAP,TDAP,TD(1 - Tdap) Never done MAMMOGRAM Never done DIABETIC FOOT EXAM due on 11/17/2017 DILATED RETINAL EXAM due on 07/12/2018 INFLUENZA(1) due on 11/06/2020 HBA1C due on 01/26/2021 PAP TESTING due on 08/06/2021 HPV TESTING due on 08/06/2021 Message Sent to Practice: No Navigation Signature: Nestor Kelly April 25, 2021 10:39 AM [facility] 01-21-2021 Note HNO ID: [id number] Author: Lina Geller APRN.JAD Service: ? Author Type: Nurse Practitioner Type: Progress Notes Filed: 01/21/2021 8:54 AM Note Text: Subjective HPI Uche Small is a 45 year old female who presents with cough, headache, since yesterday, requesting COVID testing, and lower legs with erythema and swelling due to self-inflicted wounds from compulsive skin picking. Patient states she gets really hot at night at picks at her legs. She has not had a fever. She has used antibiotic ointment on her legs but states this made her skin itch. Review of Systems Constitutional: Negative for chills and fever. HENT: Negative for congestion and sore throat. Respiratory: Positive for cough. Cardiovascular: Negative. Skin: Positive for itching. See HPI Neurological: Positive for headaches. BP 132/80 Pulse 100 Temp 36.3 ?C (97.3 ?F) Resp 18 Wt 96.2 kg (212 lb) LMP (LMP Unknown) SpO2 97% BMI 38.78 kg/m? PAST MEDICAL HISTORY Diagnosis Date - Bipolar disorder, unspecified (HCC) - Migraine without aura, without mention of intractable migraine without mention of status migrainosus - Other psoriasis - Rash and other nonspecific skin eruption - Recovering alcoholic (HCC) - Substance abuse (HCC) PAST SURGICAL HISTORY Procedure Laterality Date - L'SCOPE DX W/WO BRUSHINGS/WASHINGS 04/04/1999 Laparoscopy L SALPINGECTOMY - REMOVAL GALLBLADDER 09/1999 Cholecystectomy - TREAT ECTOPIC PREG,NON REMVAL 03/1999 Ectopic - TUBAL LIGATION HX 06/19/2003 ALLERGIES Penicillins, Prednisone, Topamax [Topiramate], and Vicodin [Hydrocodone-Acetaminophen] MEDICATIONS meloxicam (MOBIC) 15 mg tablet Take 1 tablet by mouth once daily. Take with food. insulin glargine (LANTUS SOLOSTAR U-100 INSULIN) 100 unit/mL (3 mL) Inject 80 Units subcutaneously twice daily. insulin aspart U-100 (NOVOLOG FLEXPEN U-100 INSULIN) 100 unit/mL (3 mL) Inject 60 Units subcutaneously three times daily before meals. glimepiride (AMARYL) 4 mg tablet TAKE TWO TABLETS BY MOUTH ONCE DAILY IN THE MORNING PRIOR TO MEALS metFORMIN (GLUCOPHAGE) 1,000 mg tablet Take 1 tablet by mouth twice daily with meals. acetaminophen (TYLENOL ARTHRITIS PAIN) 650 mg CR tablet Take 1 tablet by mouth every 8 hours as needed. atorvastatin (LIPITOR) 40 mg tablet Take 1 tablet by mouth once daily. lisinopril-hydroCHLOROthiazide (PRINZIDE,ZESTORETIC) 10-12.5 mg per tablet Take 1 tablet by mouth once daily. clindamycin (CLEOCIN) 300 mg capsule Take 1 capsule by mouth four times daily. hydroCHLOROthiazide (HYDRODIURIL, ESIDRIX) 25 mg tablet Take 1 tablet by mouth once daily. blood sugar diagnostic (BLOOD GLUCOSE TEST) test strip Test blood sugar(s) 3-4 times daily. Dx: Type 2 DM - Controlled E11.9 Insulin: Yes cyclobenzaprine (FLEXERIL) 10 mg tablet Take 1 tablet by mouth three times daily as needed for Muscle Spasm. propranolol (INDERAL) 20 mg tablet Take 1 tablet by mouth twice daily. cholecalciferol, Vitamin D3, (VITAMIN D3) 1,250 mcg (50,000 unit) cap capsule Take 1 capsule by mouth one time a week. insulin glargine (BASAGLAR KWIKPEN U-100 INSULIN) 100 unit/mL (3 mL) Inject 80 Units subcutaneously twice daily. insulin needles, DISPOSABLE, (BD INSULIN PEN NEEDLE UF) 31 gauge x 5/16 Use as directed once daily with insulin pen DM: yes Insulin: yes DX:E11.9 SUMAtriptan (IMITREX) 100 mg tablet Take 1 tablet by mouth as needed for Migraine Headache (see administration instructions). blood sugar diagnostic (BLOOD GLUCOSE TEST) test strip Test blood sugar(s) 4 times daily. Dx: Type 2 DM - Uncontrolled E11.65 Insulin: Yes Lancets lancets Test blood sugar(s) 3-4 times daily. Dx: Type 2 DM - Controlled E11.9 Insulin: Yes blood sugar diagnostic (FREESTYLE LITE STRIPS) test strip Test blood sugar(s) 2x daily. Dx: E11.65. Insulin: No cyanocobalamin (VITAMIN B-12) 1,000 mcg tab Take 1 tablet by mouth once daily. COMPOUNDED PRESCRIPTION OTC B12 100 mcg daily COMPOUNDED PRESCRIPTION OTC Tylenol for arthritis - 650 mg tablet - takes two tablets in morning and 2 tablets at night levonorgestrel (MIRENA) 20 mcg/24 hr (5 years) IUD Inserted in office lancets (FREESTYLE LANCETS) 28 gauge misc Test blood sugar(s) 2x daily. Dx: E11.65. Insulin: No doxycycline hyclate (VIBRAMYCIN) 100 mg capsule Take 1 capsule by mouth twice daily for 10 days. mupirocin (BACTROBAN) 2 % ointment Apply 1 application to affected area three times daily for 10 days. etodolac (LODINE) 400 mg tablet TAKE ONE TABLET BY MOUTH 2 TIMES A DAY calcium carb-mag ox-zinc gluc 333-133-5 mg tab Take 1 tablet by mouth once daily COMPOUNDED PRESCRIPTION OTC Calcium, magnesium , zinc 500 mg - takes one 500 mg tablet in the morning and one 500 mg tablet in the evening FERROUS SULFATE (IRON ORAL) Take by mouth. Compression Knee Highs KNEE HIGH COMPRESSION STOCKINGS 30-40 MM. DX: EDEMA. Bilateral leg swelling. FAMILY HISTO (more content not included)... [facility] 11-21-2020 Note HNO ID: [id number] Author: Jim Nelson APRN.[employer]CHIT[employer] Service: ? Author Type: Nurse Practitioner Type: Progress Notes Filed: 11/21/2020 9:40 AM Note Text: Chief Complaint Patient presents with: Chest Congestion: cough and weakness x 2 days SUBJECTIVE: Uche Small is an 45 year old who presents with an illness that began 2 day(s) ago and are constant since that time. Complaints of cough, fatigue, headache, SOB, and congestion. Denies having any exposure to covid or sick contacts. She is unvaccinated for covid. Has the patient had any ill contacts? No Has the patient had contact with anyone confirmed with COVID-19 infection? No Does the patient have family with confirmed COVID-19 infection: No Does the patient have the following symptoms or signs? *Fever: (Temp 100.4F or greater) No *Coughing: Yes *Shortness of breath: Yes Fatigue: Yes Chills or shaking with chills: No Muscle aches/pain: No New loss of taste or smell: No Headache: Yes Nasal congestion: Yes Sore throat: No Vomiting: No Diarrhea: No Decreased appetite: Yes Signs of dehydration (low fluid intake or voiding, diarrhea, dry mucus membranes): No *Fever plus coughing or shortness of breath answered yes is considered high risk PATIENT'S HIGH RISK CATEGORY ASSESSMENT: Diabetes Hypertension Morbid Obesity (BMI>40) Past medical history, appointments, medications, allergies reviewed 11/21/2020 Previous Medical History PAST MEDICAL HISTORY Diagnosis Date - Bipolar disorder, unspecified (HCC) - Migraine without aura, without mention of intractable migraine without mention of status migrainosus - Other psoriasis - Rash and other nonspecific skin eruption - Recovering alcoholic (HCC) - Substance abuse (HCC) Previous Surgical History PAST SURGICAL HISTORY Procedure Laterality Date - L'SCOPE DX W/WO BRUSHINGS/WASHINGS 04/04/1999 Laparoscopy L SALPINGECTOMY - REMOVAL GALLBLADDER 09/1999 Cholecystectomy - TREAT ECTOPIC PREG,NON REMVAL 03/1999 Ectopic - TUBAL LIGATION HX 06/19/2003 Review of Systems Constitutional: Positive for fatigue. Negative for chills and fever. HENT: Positive for congestion and rhinorrhea. Negative for ear pain and sore throat. Respiratory: Positive for cough and shortness of breath. Negative for wheezing. Cardiovascular: Negative for chest pain and palpitations. Gastrointestinal: Negative for constipation, diarrhea, nausea and vomiting. Musculoskeletal: Negative for myalgias. Skin: Negative for rash. Neurological: Positive for headaches. Negative for dizziness. EXAM/OBJECTIVE: BP 142/90 Pulse 88 Temp 36.4 ?C (97.6 ?F) Resp 16 Wt 105.7 kg (233 lb) LMP (LMP Unknown) BMI 42.62 kg/m? Physical Exam Vitals and nursing note reviewed. Constitutional: Appearance: Normal appearance. HENT: Nose: Congestion and rhinorrhea present. Mouth/Throat: Mouth: Mucous membranes are moist. Pharynx: No oropharyngeal exudate or posterior oropharyngeal erythema. Eyes: Extraocular Movements: Extraocular movements intact. Pupils: Pupils are equal, round, and reactive to light. Cardiovascular: Rate and Rhythm: Normal rate and regular rhythm. Pulses: Normal pulses. Heart sounds: Normal heart sounds. Pulmonary: Effort: Pulmonary effort is normal. No respiratory distress. Breath sounds: Normal breath sounds. No wheezing, rhonchi or rales. Chest: Chest wall: No tenderness. Skin: General: Skin is warm and dry. Neurological: Mental Status: She is alert and oriented to person, place, and time. Data reviewed Last 5 Encounter BP Readings: Date: BP: 11/21/2020 142/90 07/26/2020 120/82 08/14/2019 126/80 04/20/2018 144/94 03/10/2018 122/78 BMI Readings from Last 5 Encounters: 11/21/20 : 42.62 kg/m? 07/26/20 : 46.42 kg/m? 08/14/19 : 42.80 kg/m? 04/20/18 : 42.10 kg/m? 03/10/18 : 42.43 kg/m? Last 5 Encounter Wt Readings: Date: Wt: 11/21/2020 105.7 kg (233 lb) 07/26/2020 115.1 kg (253 lb 12.8 oz) 08/14/2019 106.1 kg (234 lb) 04/20/2018 104.4 kg (230 lb 3.2 oz) 03/10/2018 105.2 kg (232 lb) Medication and allergy list reviewed, reconciled and updated 11/21/2020 ASSESSMENT/PLAN: (J06.9) URI, acute (primary encounter diagnosis) -2019 CORONAVIRUS - Discussed [place] - Discussed self isolation - Discussed viral etiology and rationale for treatment. - Symptomatic treatment with prn analgesia - Supportive care with fluids and rest -Discussed gentle rehydration -BRAT Diet (Bananas, Rice, Apple Sauce, [place]) -If no better in 7-10 days follow up back in clinic or with primary care provider -Follow up in the ER with signs of dehydration, increasing abdominal pain, high fever, or blood in vomit or stool. Uche Small is an 45 year old who - Meets symptom-based criteria for testing and is high risk. - COVID swab collected at time of office visit - Discussed symptom monitoring and supportive care (more content not included)... [facility] 07-29-2020 Miscellaneous Notes Noted. Can we add Pharm consult in addition to other appt's below. Thanks. Rehana Camacho MA CALLED SPOKE TO PT STATED SHE IS STILL WAITING FOR NEW WORK SCHEDULE WOULD LIKE US TO CALL BACK NEXT WEEK TO SCHEDULE. Can we please call pt and setup 3 things. 1.) Podiatry appt. 2.) Mammogram appt 3.) 3 mo f/u with PCP. Pt did not want to schedule same day as in office as she was going to figure out her new work schedule later that day. Rehana Camacho MA documented in this encounter [facility] Narrative No data available for this section [facility] Summary note* ANNA Hurtado: PERFORM Event Display: Patient Summary Documents Authored Date: [facility] Health Concerns Infection Onset Date Last Indicated Resolved Time COVID-19 Rule-Out 11/21/2020 11/21/2020 11/22/2020 10:02 AM EDT COVID-19 Rule-Out 01/21/2021 01/21/2021 01/22/2021 2:06 AM EST Summary Purpose Family History No Family History Records FoundNo Family History Records FoundNo Family History Records Found Advance Directives No Advanced Directives Records FoundNo Advanced Directives Records FoundNo Advanced Directives Records Found Additional Source Comments Source Comments (unrecognize d section and content) In the event this informatio n is protected by the Federal Confidentiality of Alcohol and Drug Abuse Patient Records regulations: The Federal rules restrict any use of the information to criminally investigate or prosecute any alcohol or drug abuse patient.[facility] the event this information is protected by the Federal Confidentiality of Alcohol and Drug Abuse Patient Records regulations: The Federal rules restrict any use of the information to criminally investigate or prosecute any alcohol or drug abuse patient.[facility] the event this information is protected by the Federal Confidentiality of Alcohol and Drug Abuse Patient Records regulations: The Federal rules restrict any use of the information to criminally investigate or prosecute any alcohol or drug abuse patient.[facility] Reason for Visit (unrecogniz ed section and content) Reason Comments Appointment Reason Comments Follow Up Phone Call All clear Care Teams (unrecognized sec tion and content) Flagger Relationship Specialty Start Date End Date Andrez Fischer MD [address], [place] [id number] PCP - General Family Practice 11/15/17 Flagger Relationship Specialty Start Date End Date Brett Yanez MD [address] [place], [place] [address] PCP - General Internal Medicine 10/07/21 INFORMATION SOURCE (unrecogn ized section and content) DATE CREATED AUTHOR AUTHOR'S ORGANIZ ATION 10/17/2021 [facility] DATE CREATED AUTHOR AUTHOR'S ORGANIZ ATION 11/08/2021 [facility] Care Team (unrecognized sect ion and content) Care Team Personnel Name: BRETT YANEZ MD Member Role: Primary Care Physician Address: Address: [address] [place], [place] [address] FOR RECORDS PERTAINING TO PATIENTS WHO ARE OR HAVE BEEN ENROLLED IN A CHEMICAL DEPENDENCY/SUBSTANCEABUSE PROGRAM, SOME INFORMATION MAY BE OMITTED. This clinical summary was aggregated from multiple sources. Caution should be exercised in using it in the provision of clinical care. This summary normalizes information from multiple sources, and as a consequence, information in this document may materially change the coding, format and clinical context of patient data. In addition, data may be omitted in some cases. CLINICAL DECISIONS SHOULD BE BASED ON THE PRIMARY CLINICAL RECORDS. [facility]. provides no warranty or guarantee of the accuracy or completeness of information in this document.
[2023-04-29 20:40] VITALS: BP 173/99; PULSE 75; RESP 16; TEMP 36.1; O2SAT 99
== END 2023-04-29 20:42 | disposition home or self-care (01) ==
PROVIDERS: Emergency Provider Emergency Medicine; PCP Internal Medicine; Visit Provider Emergency Medicine
DX: S63.91XA Sprain of unspecified part of right wrist and hand, initial encounter (principal); E11.9 Type 2 diabetes mellitus without complications; Z87.891 Personal history of nicotine dependence; W01.0XXA Fall on same level from slipping, tripping and stumbling without subsequent striking against object, initial encounter; Y92.810 Car as the place of occurrence of the external cause; I10 Essential (primary) hypertension; Z79.899 Other long term (current) drug therapy; F41.8 Other specified anxiety disorders; K21.9 Gastro-esophageal reflux disease without esophagitis; Z79.84 Long term (current) use of oral hypoglycemic drugs; Z90.49 Acquired absence of other specified parts of digestive tract
CPT/HCPCS: 73110; 73130; 99283

== ENCOUNTER 2023-05-31 20:50 | Emergency (ER) | payer MEDICAID, SELFPAY ==
[2023-05-31 20:52] VITALS: BP 198/112; PULSE 104; RESP 18; TEMP 36.9; O2SAT 97; BMI 39.4
--- NOTE | 2023-05-31 21:15 | CT_ITS ---
STUDY: CT BRAIN WITHOUT CONTRAST REASON FOR EXAM: Female, 47 years old. migraine RADIATION DOSAGE (If Supplied By Facility): CTDIvol = ( 44.99 ) mGy, DLP = ( 779.24 ) mGycm TECHNIQUE: Transaxial CT imaging of the brain was performed without administration of intravenous contrast material. Individualized dose optimization techniques were used for this CT. COMPARISON: No relevant priors. FINDINGS: Normal soft tissue structures. Normal calvarium. Normal size ventricles and extra-axial spaces for the patient''s age. Normal white matter tracts of the cerebral hemispheres. Normal basal ganglia and thalami. Normal brainstem. Normal cerebellum. There is no intracranial hemorrhage. There are no findings of an acute ischemic infarction. Right maxillary sinus mucosal thickening. CT/Brain/Head without Contrast IMPRESSION: No acute intracranial pathology of the brain. Right maxillary sinus disease Electronically Signed: Marino Enamorado DO at 22:14 EDT ,
--- NOTE | 2023-05-31 21:18 | EDS_ITS ---
HPI History of Present Illness Chief Complaint: Ear Problem Detail of Chief Complaint: Bilateral ear pain and migraine Informant: patient Narrative Narrative: Patient presents secondary bilateral ear pain and migraine. She states she developed bilateral ear pain, right greater than left, 1 week ago. He initially thought symptoms were better but now worsened again. She reports onset of migraine 2 days ago as well. It is centralized behind her left eye. She reports some nausea and vomiting from her headache. [facility] Medical History Anemia Anxiety and depression Bilateral carpal tunnel syndrome Bipolar disorder Blister Chronic low back pain Degenerative arthritis Diabetes Dietary restriction Difficulty chewing Ectopic Former smoker Gastric reflux H/O ETOH abuse History of echocardiogram History of edema History of pain when walking History of renal disease History of stress test History of ulceration Homelessness Hydronephrosis Hypertension Injury of head and neck Neuropathy Open wound of both lower extremities Osteoarthritis Paresthesia of upper extremity PTSD (post-traumatic stress disorder) Pyelonephritis Renal stones Right ureteral stone Shortness of breath on exertion Syncope Type 2 diabetes mellitus Urticaria Home Medications losartan 50 mg tablet 50 mg PO QHS blood pressure 11/25/21 [History Last Taken 05/23/22] escitalopram oxalate 5 mg tablet (Lexapro) 5 mg PO QHS depression 01/10/22 [History Last Taken 05/23/22] famotidine 20 mg tablet 20 mg PO QHS reflux 01/10/22 [History Last Taken 05/23/22] fexofenadine 60 mg tablet (Najma Allergy) 60 mg PO BID allergies 01/10/22 [History Last Taken 05/24/22] gabapentin 100 mg capsule 100 mg PO QHS neuropathy 01/10/22 [History Last Taken 05/23/22] glimepiride 4 mg tablet 4 mg PO QAM diabetes 01/10/22 [History Last Taken 05/24/22] metformin 1,000 mg tablet 1,000 mg PO BID diabetes 01/10/22 [History Last Taken 05/24/22] sumatriptan succinate 100 mg tablet (Imitrex) See Rx Instructions PO .COMPLEX Check with primary doctor 01/10/22 [History Last Taken Unknown] oxycodone-acetaminophen 5 mg-325 mg tablet (Percocet) 1 tab PO Q8H PRN pain 3 days #14 tabs 02/19/22 [Rx Last Taken Unknown] ciprofloxacin HCl 500 mg tablet 500 mg PO BID #5 TABLETS 05/26/22 [Rx Last Taken Unknown] cefdinir 300 mg capsule 300 mg PO BID #14 caps 07/08/22 [Rx Last Taken Unknown] metoclopramide HCl 10 mg tablet 10 mg PO Q6H PRN nausea or migraine #10 tabs 07/08/22 [Rx Last Taken Unknown] codeine sulfate 15 mg tablet 15 mg PO Q6H PRN cough 3 days #12 tabs 08/27/22 [Rx Last Taken Unknown] sulfamethoxazole 800 mg-trimethoprim 160 mg tablet (Bactrim DS) 1 tab PO BID 5 days #10 tabs 11/23/22 [Rx Last Taken Unknown] ondansetron 4 mg disintegrating tablet 4 mg PO Q8H PRN PRN Nausea #10 tabs 12/17/22 [Rx Last Taken Unknown] promethazine 25 mg tablet 25 mg PO Q6H PRN PRN Nausea #10 TABLETS 12/17/22 [Rx Last Taken Unknown] losartan 50 mg tablet 50 mg PO DAILY #30 tabs 03/24/23 [Rx Last Taken Unknown] metformin 1,000 mg tablet 1,000 mg PO BID #60 tabs 03/24/23 [Rx Last Taken Unknown] naproxen 500 mg tablet (Naprosyn) 500 mg PO BID PRN pain #20 tabs 04/29/23 [Rx Last Taken Unknown] doxycycline monohydrate 100 mg capsule 100 mg PO BID #20 CAPSULES 05/31/23 [Rx Last Taken Unknown] Allergy/AdvReac Type Severity Reaction Status Date / Time Penicillins Allergy Hives Verified 04/29/23 19:22 venom-honey bee Allergy Anaphylaxis Verified 04/29/23 19:22 [bee venom (honey bee)] Family History Other Alcoholism Anxiety Arthritis Asthma Cancer Cervical cancer Depression Diabetes Heart disease Hypertension Myocardial infarction Ovarian cancer Surgical History History of tubal ligation Hx of cholecystectomy Hx of cystoscopy Social History Smoking Status: Former smoker alcohol intake: current alcohol intake frequency: holidays/special occasions only substance use type: does not use what type of physical activity do you participate in: walking ROS ROS ED Constitutional Constitutional ED: Denies chills or fever(s) Eyes Eyes: Reports other Details: Light sensitivity but no vision change. ; Denies change in vision or discharge from eye(s) ENT ENT ED: Reports ear pain bilateral; Denies discharge from eye(s), rhinorrhea or sore throat Cardiovascular Cardiovascular: Denies chest pain or palpitations Respiratory/Chest Respiratory/Chest: Denies cough or dyspnea Gastrointestinal Gastrointestinal: Reports nausea and vomiting; Denies abdominal pain or diarrhea Genitourinary Genitourinary ED: Denies dysuria Musculoskeletal Musculoskeletal: Denies back pain or extremity pain Integumentary Denies Abrasions or rash Neurologic Neurologic: Reports headache(s); Denies weakness Psychiatric Psychiatric: Denies anxiety or depression Allergic/Immunologic Allergic/Immunologic ED: Denies lip swelling or urticaria EXAM Physical Exam Const Vital Signs: 05/31/23 20:52 05/31/23 22:25 Temperature 98.4 F Temperature Source Temporal Pulse Rate 104 H 71 Respiratory Rate 18 16 Blood Pressure 198/112 H 159/88 H Blood Pressure Mean 140 111 Pulse Ox 97 98 Oxygen Delivery Method Room Air Room Air Positive well nourished and well developed General Appearance ED: well developed HEENT Reports moist mucous membranes HEENT Narrative: TMs are clear bilaterally. No pain to the mastoid air cells. Eyes EOMs intact bilaterally Neck Neck Narrative: No meningismus. Chest Wall inspection of chest normal and palpation of chest normal Resp normal respiratory effort and clear to auscultation bilaterally Cardio regular rate and regular rhythm GI non-tender Palpation: soft Extremity normal to inspection Neuro oriented x3 and no sensory deficits noted Motor Exam: strength 5/5 throughout Psych mental status grossly normal Skin no rashes or lesions noted MDM MDM MDM Narrative Medical decision making narrative: Abdomen established. Patient given IV fluids along with Compazine, Toradol, Benadryl. CT scan of the head obtained to evaluate for sinusitis, mass, bleed. Radiography Diagnostic Testing: Clinical Impression(s) from Imaging Studies Brain CT 05/31/23 21:15 IMPRESSION: No acute intracranial pathology of the brain. Right maxillary sinus disease Electronically Signed: Marino Enamorado DO at 22:14 EDT Reading Location ID and State: [facility] / [place] Tel [phone], Service support , Treatment and Re-Evaluation :: On repeat evaluation patient states her headache is much improved. Blood pressure which was initially 198/112 is now improved to 159/88. CT scan of the head significant for right maxillary sinus disease. No acute intracranial pathology. Test results discussed with the patient. I will treat her with a course of antibiotics for her sinusitis she has had symptoms for greater than 1 week. Patient received initial dose of doxycycline here and prescription sent to the pharmacy for her. Discharge Plan Triage Chief Complaint: Ear Problem Other Complaint: Headache ED Provider: Jessy Goodwin Dx/Rx/DC Orders Clinical Impression: Migraine, Sinusitis Instructions: ED, Migraine (Classical), ED Sinusitis (Antibiotic Treatment) Prescriptions: New doxycycline monohydrate 100 mg capsule 100 mg PO BID Qty: 20 0RF No Action losartan 50 mg tablet 50 mg PO QHS fexofenadine [Najma Allergy] 60 mg tablet 60 mg PO BID sumatriptan succinate [Imitrex] 100 mg tablet See Rx Instructions PO .COMPLEX Rx Instructions: take 1 tab at onset of headache; if no relief, may repeat 1 tab after at least 2 hrs; max = 2 tabs/24 hrs PO famotidine 20 mg tablet 20 mg PO QHS metformin 1,000 mg tablet 1,000 mg PO BID glimepiride 4 mg tablet 4 mg PO QAM Rx Instructions: administer with breakfast gabapentin 100 mg capsule 100 mg PO QHS escitalopram oxalate [Lexapro] 5 mg tablet 5 mg PO QHS oxycodone-acetaminophen [Percocet] 5-325 mg tablet 1 tab PO Q8H PRN (Reason: pain) 3 Days Qty: 14 0RF ciprofloxacin HCl [ciprofloxacin HCl] 500 mg tablet 500 mg PO BID Qty: 5 0RF metoclopramide HCl [metoclopramide HCl] 10 mg tablet 10 mg PO Q6H PRN (Reason: nausea or migraine) Qty: 10 0RF cefdinir 300 mg capsule 300 mg PO BID Qty: 14 0RF codeine sulfate 15 mg tablet 15 mg PO Q6H PRN (Reason: cough) 3 Days Qty: 12 0RF promethazine [promethazine] 25 mg tablet 25 mg PO Q6H PRN PRN (Reason: Nausea) Qty: 10 0RF ondansetron [ondansetron] 4 mg tablet,disintegrating 4 mg PO Q8H PRN PRN (Reason: Nausea) Qty: 10 0RF sulfamethoxazole-trimethoprim [Bactrim DS] 800-160 mg tablet 1 tab PO BID 5 Days Qty: 10 0RF losartan 50 mg tablet 50 mg PO DAILY Qty: 30 0RF metformin 1,000 mg tablet 1,000 mg PO BID Qty: 60 0RF naproxen [Naprosyn] 500 mg tablet 500 mg PO BID PRN (Reason: pain) Qty: 20 0RF Primary Care Provider: Brett Yanez Referrals: Brett Yanez MD [Primary Care Provider] - 1-2 Weeks Disposition Disposition: Home, Self Care
[2023-05-31] MEDS: proCHLORPERazine 10 MG/2 ML Vial IV (21:29)
[2023-05-31] MEDS: Ketorolac 30 MG/ML Syringe IV (21:29)
[2023-05-31] MEDS: DiphenhydrAMINE 50 MG/ML Syringe 25 MG IV (21:29)
[2023-05-31] MEDS: 0.9% Normal Saline (1000mL) 1,000 ML 1000 ML IV (21:30)
[2023-05-31 22:25] VITALS: BP 159/88; PULSE 71; RESP 16; O2SAT 98
[2023-05-31 22:37] VITALS: BP 159/88; PULSE 71; RESP 16; TEMP 36.8; O2SAT 98
[2023-05-31] MEDS: Doxycycline 100 MG CAPSULE PO (22:38)
== END 2023-05-31 22:41 | disposition home or self-care (01) ==
PROVIDERS: Emergency Provider Emergency Medicine; PCP Internal Medicine; Visit Provider Emergency Medicine
DX: J32.9 Chronic sinusitis, unspecified (principal); E11.40 Type 2 diabetes mellitus with diabetic neuropathy, unspecified; G43.909 Migraine, unspecified, not intractable, without status migrainosus; Z87.891 Personal history of nicotine dependence; I10 Essential (primary) hypertension; Z79.899 Other long term (current) drug therapy; F41.8 Other specified anxiety disorders; K21.9 Gastro-esophageal reflux disease without esophagitis; G62.9 Polyneuropathy, unspecified; Z79.84 Long term (current) use of oral hypoglycemic drugs; Z90.49 Acquired absence of other specified parts of digestive tract; Z98.51 Tubal ligation status
CPT/HCPCS: 70450; 96361; 96374; 96375; 99284; J7030; A4216

== ENCOUNTER 2023-07-31 11:07 | Emergency (ER) | payer MEDICAID, SELFPAY ==
[2023-07-31 11:08] VITALS: BP 209/125; PULSE 86; RESP 14; TEMP 36.1; O2SAT 98; BMI 38.9
--- NOTE | 2023-07-31 11:20 | EX.ED.DYSGE1 ---
HPI <OTILIO Washington - Last Filed: 07/31/23 11:28> History of Present Illness Chief Complaint: Dental Narrative Narrative: Patient is a 47-year-old female with history of diabetes, hypertension, homelessness, poor dentition who presents to the emergency department for multiple weeks of intermittent left lower jaw pain. Patient states that she has a fractured lateral incisor on the left side, it has been broken for multiple years however is currently giving her problems. She is unable to get to a dentist. She also has elevated blood pressure, she has not taken her medications for some time. Patient has been homeless for several years. Patient denies any fever or chills, states he is having difficulty eating. She denies any tobacco use. PFSH <OTILIO Washington - Last Filed: 07/31/23 11:28> [facility] Medical History Anemia Anxiety and depression Bilateral carpal tunnel syndrome Bipolar disorder Blister Chronic low back pain Degenerative arthritis Diabetes Dietary restriction Difficulty chewing Ectopic Former smoker Gastric reflux H/O ETOH abuse History of echocardiogram History of edema History of pain when walking History of renal disease History of stress test History of ulceration Homelessness Hydronephrosis Hypertension Injury of head and neck Neuropathy Open wound of both lower extremities Osteoarthritis Paresthesia of upper extremity PTSD (post-traumatic stress disorder) Pyelonephritis Renal stones Right ureteral stone Shortness of breath on exertion Syncope Type 2 diabetes mellitus Urticaria Home Medications ?Medication ?Instructions ?Recorded ?Last Taken ?Type clindamycin HCl 300 mg capsule 300 mg PO Q6H #40 CAPSULES 07/31/23 Unknown Rx (Cleocin HCl) ibuprofen 600 mg tablet 600 mg PO Q6H PRN PRN fever #20 07/31/23 Unknown Rx TABLETS lisinopril 20 mg tablet 20 mg PO DAILY #30 tabs 07/31/23 Unknown Rx Allergy/AdvReac Type Severity Reaction Status Date / Time Penicillins Allergy Hives Verified 07/31/23 11:09 venom-honey bee (bee venom Allergy Anaphylaxis Verified 07/31/23 11:09 (honey bee)) Family History Other Alcoholism Anxiety Arthritis Asthma Cancer Cervical cancer Depression Diabetes Heart disease Hypertension Myocardial infarction Ovarian cancer Surgical History History of tubal ligation Hx of cholecystectomy Hx of cystoscopy Social History Smoking Status: Former smoker alcohol intake: current alcohol intake frequency: holidays/special occasions only substance use type: does not use what type of physical activity do you participate in: walking ROS <OTILIO Washington - Last Filed: 07/31/23 11:28> ROS ED ROS Narrative Constitutional: Negative for fever, chills, weight loss, weakness Eyes: Negative for vision loss, vision change, double vision ENT: Negative for any sore throat, ear pain, congestion. Positive for fractured tooth, left jaw swelling Cardiovascular: Negative for any chest pain, tightness, palpitations Respiratory: Negative for any cough, sputum production, hemoptysis, dyspnea, dyspnea on exertion, orthopnea Gastrointestinal: Negative for any abdominal pain, nausea, vomiting, diarrhea, constipation, blood in stool, blood in vomit : Negative for any urinary frequency, dysuria, retention, blood in urine Muscle skeletal: Negative for any neck pain, back pain Neurological: Negative for any headache, syncope, dizziness Skin: Negative for any rashes, itching, abrasions, lacerations Psychiatric: Negative for any depression, anxiety, stress, suicidal ideation, homicidal ideation Hematologic: Negative for any excessive bruising, easy bleeding EXAM <OTILIO Washington - Last Filed: 07/31/23 11:28> Physical Exam Narrative Exam Narrative: Vital signs reviewed. HEET: Head normocephalic atraumatic, TMs clear bilaterally. Posterior pharynx is clear, moist mucous membranes. Nares clear bilaterally. Patient has poor dentition, patient has a fractured lateral incisor on the left lower jaw. Some root exposure. This does look chronic. Patient does have poor dentition with multiple dental caries, multiple fractured teeth. No drainable abscess. Neck: Supple with no lymphadenopathy or tenderness. No signs of meningismus. Cardiac: Regular rate and rhythm no murmurs gallops or rubs, equal peripheral pulses bilaterally. Respiratory: Lungs clear to auscultation bilaterally. No chest tenderness. Abdomen: Soft, nontender, nondistended. No abdominal bruit or pulsatile masses. No hepatosplenomegaly Extremities: No peripheral edema, no signs of gross trauma or deformity. Active full range of motion of all extremities. Neuro: Cranial nerves II through XII intact, no focal neurological deficits. Skin: Clean dry and intact with no rash, purpura, petechiae, vesicles or pustules. Backs/flank: No CVA tenderness, no midline spinal tenderness, no deformity. Psych: Normal mood and affect. No SI, HI or acute psychosis. Const Vital Signs: 07/31/23 11:08 Temperature 96.9 F L Temperature Source Temporal Pulse Rate 86 Respiratory Rate 14 Blood Pressure 209/125 H Blood Pressure Mean 153 Pulse Ox 98 Oxygen Delivery Method Room Air <Dr. Jamir Rodriguez DO - Last Filed: 07/31/23 11:38> Physical Exam Const Vital Signs: 07/31/23 11:08 Temperature 96.9 F L Temperature Source Temporal Pulse Rate 86 Respiratory Rate 14 Blood Pressure 209/125 H Blood Pressure Mean 153 Pulse Ox 98 Oxygen Delivery Method Room Air MDM <OTILIO [place] - Last Filed: 07/31/23 11:28> [facility] Treatment and Re-Evaluation :: Differential reversible pulpitis, fractured tooth, dental caries, dental abscess Patient appears to be in no obvious respiratory distress vital signs are stable, patient appears nontoxic. Patient presenting to the emergency department with complaints of ongoing pain to the left lower jaw, fractured left lateral incisor on the lower jaw. No red flag signs. Patient has no trismus. There is no drainable abscess. Patient is also hypertensive. She states she has not taken her blood pressure medicine in some time, she states he is homeless. Patient be placed on clindamycin as well as lisinopril. That is when she took before she ran out. At this time, I gave her a dental referral list, she will be given a prescription for clindamycin as well as lisinopril. She will be given ibuprofen 800 mg. All questions answered, patient struck to return for any worsening symptoms. <Dr. Jamir Rodriguez DO - Last Filed: 07/31/23 11:38> [facility] Treatment and Re-Evaluation :: Differential reversible pulpitis, fractured tooth, dental caries, dental abscess Patient appears to be in no obvious respiratory distress vital signs are stable, patient appears nontoxic. Patient presenting to the emergency department with complaints of ongoing pain to the left lower jaw, fractured left lateral incisor on the lower jaw. No red flag signs. Patient has no trismus. There is no drainable abscess. Patient is also hypertensive. She states she has not taken her blood pressure medicine in some time, she states he is homeless. Patient be placed on clindamycin as well as lisinopril. That is when she took before she ran out. At this time, I gave her a dental referral list, she will be given a prescription for clindamycin as well as lisinopril. She will be given ibuprofen 800 mg. All questions answered, patient struck to return for any worsening symptoms. I have personally performed a face to face assessment of the patient and have reviewed the ARACELI Note. I performed a substantive portion of the visit including all aspects of the following. My schneider findings include: History is obtained issues. She states that is ago she had pain along the left knee and states that was short-lived and got better. They have since gotten worse. She is a diabetic with a history of hypertension. She is not currently taking her blood pressure medication she denies any facial swelling trismus or fever she denies chest arm or leg back symptoms that are new Exam is patient is notably hypertensive. She is no acute distress. There is focally the left lower. No obvious trismus floor the mouth is soft. Medical Decison Making based on the exam the patient's I do not think she has aortic dissection or other vascular emergency. I think she is most likely as infected dental caries. Patient will be treated with antibiotics and oral hypertensives. Discharge Plan Triage Chief Complaint: Dental ED Midlevel Provider: Walter John ED Provider: Jamir Rodriguez Dx/Rx/DC Orders Clinical Impression: Dental caries, Essential hypertension, Non-compliance Instructions: Understanding Tooth Decay, ED Dental Cavity, ED High Blood Pressure Hypertension Prescriptions: New lisinopril 20 mg tablet 20 mg PO DAILY Qty: 30 2RF clindamycin HCl [Cleocin HCl] 300 mg capsule 300 mg PO Q6H Qty: 40 0RF ibuprofen 600 mg tablet 600 mg PO Q6H PRN PRN (Reason: fever) Qty: 20 0RF Primary Care Provider: Brett Yanez Referrals: Brett Yanez MD [Primary Care Provider] - Print Language: Norwegian Disposition Disposition: Home, Self Care
[2023-07-31] MEDS: Lisinopril 20 MG Tablet PO (11:35)
[2023-07-31] MEDS: Clindamycin HCl 150 MG Capsule 300 MG PO (11:35)
[2023-07-31] MEDS: cloNIDine HCl 0.1 MG Tablet PO (12:52)
[2023-07-31 13:05] VITALS: BP 197/107; PULSE 86
== END 2023-07-31 13:10 | disposition home or self-care (01) ==
LOC: ED 11:51
PROVIDERS: Emergency Provider Emergency Medicine; PCP Internal Medicine; Visit Provider Emergency Medicine
DX: K02.9 Dental caries, unspecified (principal); F31.9 Bipolar disorder, unspecified; E11.40 Type 2 diabetes mellitus with diabetic neuropathy, unspecified; E11.638 Type 2 diabetes mellitus with other oral complications; Z91.199 Patient's noncompliance with other medical treatment and regimen due to unspecified reason; I10 Essential (primary) hypertension; Z87.891 Personal history of nicotine dependence; Z98.51 Tubal ligation status; Z90.49 Acquired absence of other specified parts of digestive tract
CPT/HCPCS: 99283

== ENCOUNTER 2023-08-01 22:04 | Emergency (ER) | payer MEDICAID, SELFPAY ==
[2023-08-01 22:04] VITALS: BP 208/126; PULSE 104; RESP 15; TEMP 36.1; O2SAT 97
--- NOTE | 2023-08-01 22:25 | CT_ITS ---
EXAM: CT NECK WITH INTRAVENOUS CONTRAST CLINICAL INDICATION: swelling, tooth infection TECHNIQUE: Helically acquired images were obtained of the neck with intravenous contrast. This CT exam was performed using one or more of the following dose reduction techniques: automated exposure control, adjustment of the mA and/or kV according to patient size, and/or use of iterative reconstruction technique. CONTRAST: 75 cc of Isovue-370 IV. RADIATION DOSE: CTDIvol = 19.023 mGy, DLP = 570.37 mGy-cm COMPARISON: No relevant prior studies available. FINDINGS: NASOPHARYNX: Unremarkable. SUPRAHYOID NECK: Unremarkable. Oropharynx, oral cavity, parapharyngeal space and retropharyngeal space are unremarkable. INFRAHYOID NECK: Unremarkable. The larynx, hypopharynx and supraglottis are unremarkable. SUBMANDIBULAR/PAROTID GLANDS: Unremarkable. Glands are normal in size. THYROID: Unremarkable. No enlarged or calcified nodules. SINUSES: Mucous retention cyst right maxillary sinus.: Large cavity tooth #23 with marked lucency around the root consistent with periapical abscess. Peripherally enhancing collection measuring 1.2 x 1.2 x 0.7 cm abutting the alveolar process of the mandible adjacent to tooth #23. BONES/JOINTS: No acute fracture. SOFT TISSUES: Unremarkable. VASCULATURE: No acute findings. LYMPH NODES: Unremarkable. No lymphadenopathy. LUNG APICES: See above. CT/Soft Tissue Neck WITH Contrast IMPRESSION: 1. Periapical abscessed tooth #23 with adjacent subperiosteal abscess measuring 1.2 x 1.2 x 0.7 cm anterior to the alveolar process of the mandible. 2. Mucous retention cyst right maxillary sinus. Electronically Signed: Ben Dangelo MD at 23:45 EDT ,
[2023-08-01 22:26] VITALS: BP 182/102; PULSE 95; RESP 20; O2SAT 95
[2023-08-01] MEDS: Morphine 4 MG/ML Syringe IV (22:41)
[2023-08-01 22:54] LABS: Anion Gap 7 (5-15); BUN 9 mg/dL (7-18); BUN/Creat Ratio 10.5 RATIO (10-20); Calcium,Total 8.9 mg/dL (8.5-10.1); Chloride 101 mmol/L (98-107); Creatinine, Serum 0.85 mg/dL (0.55-1.02); EST Glomerular Filtration Rate 76 mL/min (>60); Est Glom Filt Rate - Afr Amer 92 mL/min (>60); Glucose 374 mg/dL (74-106); Potassium 3.9 mmol/L (3.5-5.1); Sodium Level 132 mmol/L (136-145)
[2023-08-01 22:57] LABS: Absolute Lymphocyte Count 1.85 X10^3/uL (0.83-4.51); Absolute Neutrophil Count 7.5 X10^3/uL (2.0-7.7); Basophil# 0.07 X10^3/uL; Basophil% 0.7 % (0-1); Eosinophil# 0.29 X10^3/uL; Eosinophils% 2.8 % (0-5); Hematocrit 42.8 % (37-47); Hemoglobin 14.6 g/dL (12.0-15.0); Lymphocyte # 1.85 X10^3/ul (0.83-4.51); Lymphocyte % 17.6 % (19-41); Mean Corp Hgb Conc 34.1 g/dL (32-36); Mean Corpuscular Hgb 30.2 pg (27.0-32.0); Mean Corpuscular Volume 88.4 fL (81-99); Mean Platelet Vol. 10.7 fl (6.2-12.0); Monocyte# 0.78 X10^3/uL; Monocyte% 7.4 % (0-10); NRBC Flagged by Analyzer 0 % (0-5); Neutrophil # 7.48 X10^3/uL (2.7-7.7); Neutrophil % 71.1 % (47-70); Platelet Count 217 K/mm3 (150-450); RBC Distribution Width CV 11.9 % (11.6-14.6); RBC Distribution Width SD 38.2 fl (35.1-43.9); Red Blood Count 4.84 M/mm3 (4.2-5.4); White Blood Count 10.5 K/mm3 (4.4-11.0)
--- NOTE | 2023-08-01 23:04 | ED.VIS.DENTA ---
HPI History of Present Illness Chief Complaint: Dental Informant: patient Narrative Narrative: Presents worsening swelling to her face. Seen in the ED yesterday for dental infection. Was put on clindamycin due to penicillin allergy. She has had broken tooth there for years. She is homeless therefore unable to get into a dentist. Allergies to penicillin. Provided ibuprofen yesterday. States pain and swelling is worsened. She is a diabetic. After workup initiated value records has not taken her medicines for months yesterday seen for dental pain there is no noted facial swelling, she had hypertension that is chronic asymptomatic was put on back on her lisinopril 20 mg. Prior similar symptoms: Yes PFSH PFSH Medical History Blister History of renal disease Anemia Injury of head and neck Syncope Difficulty chewing Dietary restriction History of ulceration Gastric reflux Shortness of breath on exertion Neuropathy History of pain when walking History of edema History of echocardiogram History of stress test Hypertension Hydronephrosis Right ureteral stone H/O ETOH abuse Homelessness Bipolar disorder Former smoker Degenerative arthritis Bilateral carpal tunnel syndrome Paresthesia of upper extremity Chronic low back pain Pyelonephritis Renal stones Anxiety and depression Urticaria Open wound of both lower extremities Type 2 diabetes mellitus Osteoarthritis Diabetes Ectopic PTSD (post-traumatic stress disorder) Home Medications ?Medication ?Instructions ?Recorded ?Last Taken ?Type clindamycin HCl 300 mg capsule 300 mg PO Q6H #40 CAPSULES 07/31/23 Unknown Rx (Cleocin HCl) ibuprofen 600 mg tablet 600 mg PO Q6H PRN PRN fever #20 07/31/23 Unknown Rx TABLETS lisinopril 20 mg tablet 20 mg PO DAILY #30 tabs 07/31/23 Unknown Rx oxycodone-acetaminophen 5 mg-325 1 tab PO Q6H PRN PRN Pain 3 days 08/02/23 Unknown Rx mg tablet #12 TABLETS Allergy/AdvReac Type Severity Reaction Status Date / Time Penicillins Allergy Hives Verified 08/01/23 22:09 venom-honey bee (bee venom Allergy Anaphylaxis Verified 08/01/23 22:09 (honey bee)) Family History Other Alcoholism Anxiety Arthritis Asthma Cancer Cervical cancer Depression Diabetes Heart disease Hypertension Myocardial infarction Ovarian cancer Surgical History Hx of cystoscopy History of tubal ligation Hx of cholecystectomy Social History Smoking Status: Former smoker alcohol intake: current alcohol intake frequency: holidays/special occasions only substance use type: does not use what type of physical activity do you participate in: walking ROS ROS ED Constitutional Constitutional ED: Denies chills, fever(s) or sweats Eyes Eyes: Denies change in vision ENT ENT ED: Reports other Details: Dental pain, facial swelling ; Denies dysphagia or sore throat Cardiovascular Cardiovascular: Denies chest pain, leg edema, palpitations or racing heartbeat Respiratory/Chest Respiratory/Chest: Denies cough, dyspnea or dyspnea on exertion Gastrointestinal Gastrointestinal: Denies abdominal pain, diarrhea, nausea or vomiting Genitourinary Genitourinary ED: Denies dysuria, hematuria or urinary frequency Musculoskeletal Musculoskeletal: Denies back pain, extremity pain or neck pain Integumentary Denies rash or wounds Neurologic Neurologic: Denies headache(s), paresthesias or weakness EXAM Physical Exam Const Vital Signs: 08/01/23 22:04 08/01/23 22:26 08/02/23 00:26 Temperature 97.0 F L Temperature Source Temporal Pulse Rate 104 H 95 80 Respiratory Rate 15 20 H 16 Blood Pressure 208/126 H 182/102 H 183/110 H Blood Pressure Mean 153 128 134 Pulse Ox 97 95 96 Oxygen Delivery Method Room Air Room Air Room Air Positive well nourished and well developed Constitutional Narrative: Uncomfortable, nontoxic General Appearance ED: well developed HEENT Reports moist mucous membranes HEENT Narrative: Dental fracture left lower lateral incisor, dental decay down to gumline of tooth #23 next to the incisor. No sublingual edema. There was swelling to the submental region and tender to palpation. There is no fluctuance at the gumline. Airway patent. No trismus. normocephalic and atraumatic Eyes EOMs intact bilaterally and conjunctivae normal General Eye ED: Yes normal appearance of both eyes Neck no lymphadenopathy and supple General: Negative for tenderness Chest Wall Chest: Negative for tenderness Resp normal respiratory effort and normal air movement Effort and Inspection: symmetric chest movement; Negative for respiratory distress Cardio regular rhythm and no murmurs Rate: tachycardic Peripheral Pulses: pulses 2+ throughout GI normal to inspection, nondistended, normoactive bowel sounds and non-tender Palpation: Negative for guarding or rebound tenderness present Back/Spine no CVA tenderness and no thoracic nor lumbar tenderness Extremity normal to inspection General Extremety ED: Negative for edema or tenderness General Extremity: Negative for edema Neuro oriented x3 and no sensory deficits noted Sensorium / Orientation: awake and alert Skin no rashes or lesions noted and no wounds MDM MDM MDM Narrative Medical decision making narrative: Interventions / MDM: Differential diagnosis: Dental caries, dental abscess, pulpitis, hypertension, diabetes Diagnosis considered but do not suspect: No hypertensive emergency symptoms. DKA however normal anion gap with hyperglycemia. My EKG interpretation: N/A Imaging independently reviewed and interpreted by myself: CT soft tissue neck: Periapical abscess standing submental under tooth 23 also read by radiology. External documents reviewed: N/A Test considered but not ordered:N/A ED course: Patient now with swelling submental facial region there is no sublingual edema. However worsening symptoms with swelling. She is diabetic. Labs were drawn, morphine and IV clindamycin was ordered. Soft tissue CT neck ordered for further evaluation. 2305: White count 10.5, glucose [address] confirming abscess outer gum region under tooth 23. Discussed incise and drainage for which she agreed. There was active drainage after just numbing of the region. There is improving of swelling. She will finish her antibiotics. Meds to bed with Percocet. She will continue ibuprofen discussed no driving while taking Percocets. She is given additional follow-up with [facility] clinic or dental list that she has to follow-up with. Return precautions. All questions were answered. Procedure note: Verbal consent. Normal sterile conditions. 5 cc 1% lidocaine used for submental block on the left side. Additional numbing submental region was performed. During injection there is exudative drainage coming from her decayed tooth 23. 11 blade straight incision submental region bloody drainage, there is improved swelling. Patient tolerated procedure well. Re-evaluation: stable Disposition discussed with patient/family/significant other: patient Case discussed with consulting clinician: N/A This note was generated with [address] dictation software. It may contain incorrect words, spelling, and punctuation that were not noted in checking the note before signing. Lab Data Attestation: I reviewed the patient's lab results. Labs: Laboratory Results - last 24 hr 08/01/23 08/01/23 08/01/23 22:36 22:36 22:47 WBC Cancelled 10.5 Corrected WBC Cancelled RBC Cancelled 4.84 Hgb Cancelled 14.6 Hct Cancelled 42.8 MCV Cancelled 88.4 MCH Cancelled 30.2 MCHC Cancelled 34.1 RDW Std Deviation Cancelled 38.2 RDW Coeff of Johnnie Cancelled 11.9 Plt Count Cancelled 217 MPV Cancelled 10.7 Immature Gran % (Auto) Cancelled 0.400 Neut % (Auto) Cancelled 71.1 H Lymph % (Auto) Cancelled 17.6 L [place] % (Auto) Cancelled 7.4 Eos % (Auto) Cancelled 2.8 Baso % (Auto) Cancelled 0.7 Absolute Neuts (auto) Cancelled 7.5 Absolute Lymphs (auto) Cancelled 1.85 Total Counted Cancelled Neutrophils % (Manual) Cancelled Band Neutrophils % Cancelled Lymphocytes % (Manual) Cancelled Monocytes % (Manual) Cancelled Eosinophils % (Manual) Cancelled Basophils % (Manual) Cancelled Metamyelocytes % Cancelled Myelocytes % Cancelled Promyelocytes % Cancelled Blast Cells % Cancelled Plasma Cell % (Manual) Cancelled Other Cells % Cancelled Nucleated RBC % Cancelled 0 Nucleated RBCs/100 WBC Cancelled Differential Comment Cancelled Diff Path Review Cancelled Hypersegmented Neuts Cancelled Atypical Lymphocytes Cancelled Reactive Lymphocytes Cancelled Smudge Cells Cancelled Toxic Granulation Cancelled Toxic Vacuolation Cancelled Dohle Bodies Cancelled Murphy Rods Cancelled Platelet Estimate Cancelled Plt Morphology Comment Cancelled RBC Morphology Cancelled Cancelled Polychromasia Cancelled Hypochromasia Cancelled Basophilic Stippling Cancelled Anisocytosis Cancelled Microcytosis Cancelled Macrocytosis Cancelled Spherocytes Cancelled Sickle Cells Cancelled Target Cells Cancelled Tear Drop Cells Cancelled Ovalocytes Cancelled Stomatocytes Cancelled [place] Bodies Cancelled [place] Cells Cancelled Bite Cells Cancelled Crenated Cell Cancelled Acanthocytes (Spur) Cancelled Rouleaux Cancelled Schistocytes Cancelled Sodium 132 L Potassium 3.9 Chloride 101 Carbon Dioxide 24.0 Anion Gap 7 BUN 9 Creatinine 0.85 Est GFR (MDRD) Af Amer 92 Est GFR (MDRD) Non-Af 76 BUN/Creatinine Ratio 10.5 Glucose 374 H Calcium 8.9 Radiography Diagnostic Testing: Clinical Impression(s) from Imaging Studies Soft Tissue Neck CT 08/01/23 22:25 IMPRESSION: 1. Periapical abscessed tooth #23 with adjacent subperiosteal abscess measuring 1.2 x 1.2 x 0.7 cm anterior to the alveolar process of the mandible. 2. Mucous retention cyst right maxillary sinus. Electronically Signed: Ben Dangelo MD at 23:45 EDT , Discharge Plan Triage Chief Complaint: Dental ED Provider: Dennis Lowery Dx/Rx/DC Orders Clinical Impression: Dental abscess, Dental caries, Essential hypertension, Hyperglycemia due to diabetes mellitus Instructions: ED Dental Abscess Prescriptions: New oxycodone-acetaminophen 5-325 mg tablet 1 tab PO Q6H PRN PRN (Reason: Pain) 3 Days Qty: 12 0RF No Action lisinopril 20 mg tablet 20 mg PO DAILY Qty: 30 2RF clindamycin HCl [Cleocin HCl] 300 mg capsule 300 mg PO Q6H Qty: 40 0RF ibuprofen 600 mg tablet 600 mg PO Q6H PRN PRN (Reason: fever) Qty: 20 0RF Primary Care Provider: Brett Yanez Referrals: Brett Yanez MD [Primary Care Provider] - Lindsey Frye [Non-Staff] - 3-5 Days Activity Restrictions/Additional Instructions: Dental abscess on CT. This was incised and drained. Take and finish your antibiotic. Pain medicine as prescribed. Do not drive while taking this pain medicine Percocet. Follow-up with dental list or [facility]. Return if any worsening symptoms. Print Language: Chinese Disposition Disposition: Home, Self Care
[2023-08-01] MEDS: Clindamycin 600 MG/50 ML BAG 100 MG IV (23:15)
[2023-08-01 23:26] VITALS: BMI 41.0
[2023-08-02 00:26] VITALS: BP 183/110; PULSE 80; RESP 16; O2SAT 96
[2023-08-02] MEDS: Lidocaine 1% (20 ml mdv) 20 ML Vial INFILT (00:40)
[2023-08-02 02:00] VITALS: BP 200/119; PULSE 94; RESP 20; O2SAT 94
[2023-08-02 02:37] VITALS: BP 200/90; PULSE 96; RESP 18; TEMP 36.6; O2SAT 97
[2023-08-02 02:40] LABS: Bedside Glucose 291 mg/dL (74-106)
== END 2023-08-02 02:39 | disposition home or self-care (01) ==
PROVIDERS: Emergency Provider Emergency Medicine; PCP Internal Medicine; Visit Provider Emergency Medicine
DX: E11.638 Type 2 diabetes mellitus with other oral complications (principal); E11.65 Type 2 diabetes mellitus with hyperglycemia; E11.40 Type 2 diabetes mellitus with diabetic neuropathy, unspecified; K04.7 Periapical abscess without sinus; I10 Essential (primary) hypertension; S02.5XXD Fracture of tooth (traumatic), subsequent encounter for fracture with routine healing; Z87.891 Personal history of nicotine dependence; K02.9 Dental caries, unspecified; Z59.00 Homelessness unspecified; K21.9 Gastro-esophageal reflux disease without esophagitis; Z79.899 Other long term (current) drug therapy; X58.XXXD Exposure to other specified factors, subsequent encounter
CPT/HCPCS: 41800; 70491; 80048; 82962; 85025; 96374; 96375; 99283; J7030; Q9967; A4216

== ENCOUNTER 2023-08-31 19:35 | Emergency (ER) | payer MEDICAID, SELFPAY ==
[2023-08-31 19:35] VITALS: BP 162/109; PULSE 103; RESP 18; TEMP 35.8; O2SAT 97; BMI 39.3
[2023-08-31] MEDS: HYDROcodone Bitartrate/Apap 5/325 Tablet PO (21:34)
--- NOTE | 2023-08-31 21:35 | ED.VIS.BACK ---
HPI History of Present Illness Chief Complaint: Back Detail of Chief Complaint: I injured my back lifting something heavy 2 days ago Informant: patient Onset/Context/Timing Onset: Days (Today) Context: Sudden Onset Injury: lifting Timing: Continuous and Waxes and wanes Quality: Dull and Aching Location: Lumbar Current Severity: Mild Maximum Severity: Moderate Worsened by: improves with Movement, Ambulation and Bending Relieved by: Nothing Associated Symptoms Associated Symptoms: - (Denies saddle paresthesia or anesthesia. Denies foot drop. Denies buckling her knees going up or down steps.); Negative for Numbness, Tingling, Radiation to Right Leg, Radiation to Left Leg, Fever, Abdominal Pain, Dysuria, Unable to Ambulate, Unable to Transfer, Urinary Retention, Urinary Incontinence, Constipation or Fecal Incontinence Narrative Narrative: Patient is a 47-year-old woman. She lives in a mobile home. She injured her back moving something heavy. She has no constitutional symptoms of fever, chills night sweats. She has had no recent dental or any type of surgical procedure. She has known history of degenerative disc disease. She has contraindications to NSAIDs. Prior similar symptoms: Yes PFSH [facility] Medical History Blister History of renal disease Anemia Injury of head and neck Syncope Difficulty chewing Dietary restriction History of ulceration Gastric reflux Shortness of breath on exertion Neuropathy History of pain when walking History of edema History of echocardiogram History of stress test Hypertension Hydronephrosis Right ureteral stone H/O ETOH abuse Homelessness Bipolar disorder Former smoker Degenerative arthritis Bilateral carpal tunnel syndrome Paresthesia of upper extremity Chronic low back pain Pyelonephritis Renal stones Anxiety and depression Urticaria Open wound of both lower extremities Type 2 diabetes mellitus Osteoarthritis Diabetes Ectopic PTSD (post-traumatic stress disorder) Home Medications ?Medication ?Instructions ?Recorded ?Last Taken ?Type clindamycin HCl 300 mg capsule 300 mg PO Q6H #40 CAPSULES 07/31/23 Unknown Rx (Cleocin HCl) ibuprofen 600 mg tablet 600 mg PO Q6H PRN PRN fever #20 07/31/23 Unknown Rx TABLETS lisinopril 20 mg tablet 20 mg PO DAILY #30 tabs 07/31/23 Unknown Rx oxycodone-acetaminophen 5 mg-325 1 tab PO Q6H PRN PRN Pain 3 days 08/02/23 Unknown Rx mg tablet #12 TABLETS hydrocodone-acetaminophen 5-325mg 1 tab PO Q6H PRN PRN Pain 3 days 08/31/23 Unknown Rx 5mg-325mg #10 TABLETS Allergy/AdvReac Type Severity Reaction Status Date / Time Penicillins Allergy Hives Verified 08/31/23 19:36 venom-honey bee (bee venom Allergy Anaphylaxis Verified 08/31/23 19:36 (honey bee)) Family History Other Alcoholism Anxiety Arthritis Asthma Cancer Cervical cancer Depression Diabetes Heart disease Hypertension Myocardial infarction Ovarian cancer Surgical History Hx of cystoscopy History of tubal ligation Hx of cholecystectomy Social History Smoking Status: Former smoker alcohol intake: current alcohol intake frequency: holidays/special occasions only substance use type: does not use what type of physical activity do you participate in: walking ROS ROS ED Constitutional Constitutional ED: Denies chills, fever(s), subjective or sweats Cardiovascular Cardiovascular: Denies chest pain or palpitations Respiratory/Chest Respiratory/Chest: Denies dyspnea or dyspnea on exertion Gastrointestinal Gastrointestinal: Denies abdominal pain, constipation, diarrhea, melena, nausea or vomiting Genitourinary Genitourinary ED: Denies dysuria, hematuria or urinary frequency Musculoskeletal Musculoskeletal: Reports back pain; Denies arthralgias, myalgias or neck pain Integumentary Denies rash Neurologic Neurologic: Denies paresthesias or weakness EXAM Physical Exam Const Vital Signs: 08/31/23 19:35 Temperature 96.4 F L Temperature Source Temporal Pulse Rate 103 H Respiratory Rate 18 Blood Pressure 162/109 H Blood Pressure Mean 126 Pulse Ox 97 Positive well nourished and well developed Constitutional Narrative: She has no discomfort lying on the bed. BMI is 39.9. General Appearance ED: well developed and NAD; Negative for pallor HEENT Reports moist mucous membranes HEENT Narrative: Head is atraumatic, cephalic. Ears normal. Nares patent. Eyes PERRL and EOMs intact bilaterally General Eye ED: Negative for pale conjunctiva or scleral icterus Resp normal respiratory effort Cardio regular rate and regular rhythm GI normal to inspection, nondistended, normoactive bowel sounds, soft to palpation, non-tender, non-distended and no masses Back/Spine normal to inspection Back/Spine Narrative: Bilateral paralumbar discomfort. Patella and ankle reflex are 1+ and symmetric. EHLs intact. Normal sensation over L3-S1 dermatome. 5/5 strength with plantar dorsiflexion. Lumbar Spine / Lower Back: ROM limited and straight leg raise negative bilaterally Extremity normal to inspection and no clubbing, cyanosis or edema General Extremety ED: Negative for edema or tenderness General Extremity: Negative for edema Neuro Deep Tendon Reflexes: Rt Patellar (L4): 1+, Lt Patellar (L4): 1+, Rt Ankle (S1): 1+ and Lt Ankle (S1): 1+ Deep Tendon Reflexes Back: Rt Patellar (L4): 1+, Lt Patellar (L4): 1+, Rt Ankle (S1): 1+ and Lt Ankle (S1): 1+ Plantar Reflex: Downgoing: bilateral Psych mental status grossly normal Skin no rashes or lesions noted and no wounds General Skin Exam: Negative for jaundice or pallor MDM MDM MDM Narrative Medical decision making narrative: Patient has muscular pain. She was treated with opiate allergies and she has contraindication NSAIDs. She was discharged prescription for oral and opiate analgesics. She was instructed to apply ice 6-10 times a day. Bridging is not indicated. Blood pressure is noted be elevated as well as high pulse rate. She has history of hypertension. Discharge Plan Triage Chief Complaint: Back ED Provider: Lucius Cowan Dx/Rx/DC Orders Clinical Impression: Acute lumbar myofascial strain, Type 2 diabetes mellitus, Elevated blood pressure reading in office with diagnosis of hypertension, DDD (degenerative disc disease), lumbosacral Instructions: ED Back Sprain/Strain Prescriptions: New hydrocodone-acetaminophen 5-325 mg tablet 1 tab PO Q6H PRN PRN (Reason: Pain) 3 Days Qty: 10 0RF No Action oxycodone-acetaminophen 5-325 mg tablet 1 tab PO Q6H PRN PRN (Reason: Pain) 3 Days Qty: 12 0RF lisinopril 20 mg tablet 20 mg PO DAILY Qty: 30 2RF clindamycin HCl [Cleocin HCl] 300 mg capsule 300 mg PO Q6H Qty: 40 0RF ibuprofen 600 mg tablet 600 mg PO Q6H PRN PRN (Reason: fever) Qty: 20 0RF Primary Care Provider: Brett Yanez Referrals: Brett Yanez MD [Primary Care Provider] - Activity Restrictions/Additional Instructions: Apply ice to your lower back 6-10 times a day for the next 3 to 5 days Print Language: Wallisian
== END 2023-08-31 22:06 | disposition home or self-care (01) ==
PROVIDERS: Emergency Provider Emergency Medicine; PCP Internal Medicine; Visit Provider Emergency Medicine
DX: S39.012A Strain of muscle, fascia and tendon of lower back, initial encounter (principal); E11.40 Type 2 diabetes mellitus with diabetic neuropathy, unspecified; M51.36 Other intervertebral disc degeneration, lumbar region; M51.37 Other intervertebral disc degeneration, lumbosacral region; Z87.891 Personal history of nicotine dependence; I10 Essential (primary) hypertension; R03.0 Elevated blood-pressure reading, without diagnosis of hypertension; Z90.49 Acquired absence of other specified parts of digestive tract; Z98.51 Tubal ligation status; X50.0XXA Overexertion from strenuous movement or load, initial encounter
CPT/HCPCS: 99282

== ENCOUNTER 2023-10-15 18:12 | Emergency (ER) | payer MEDICAID, SELFPAY ==
[2023-10-15 18:12] VITALS: BP 179/110; BP 187/113; PULSE 96; PULSE 99; RESP 14; RESP 16; TEMP 35.7; O2SAT 96; O2SAT 97; BMI 38.9
--- NOTE | 2023-10-15 18:19 | ED.RN ---
SINCE THE INJURY IS FROM A BITE EVEN THOUGH IT WAS A WEEK AGO, A BITE FORM WAS GIVEN. WE'RE NOT FILLING THAT OUT.
--- NOTE | 2023-10-15 18:35 | ED.RN ---
when this rn was assessing patient, this rn asks if patient filled out a [facility] Bite Form. pt states no, i will not fill out a bite form. when this rn asks why she is refusing, pt states my dog is a service dog, they will euthanize it since it is a pitbull mix. this rn reassures pt that they will most likely not euthanize the dog but the bite information will most likely be turned into the health dept. and they will most likely contact her. pt states that she will handle it when they call but she does not want her dog to be refused at businesses.
--- NOTE | 2023-10-15 19:20 | EDS_ITS ---
HPI History of Present Illness Chief Complaint: Upper Extremity Injury Informant: patient and family Narrative Narrative: 47-year-old female presenting to the emergency room with right forearm pain. Patient states about a week ago dogs were fighting and she can in between them and one of the dogs bit her right forearm. She states that there is only a superficial scratch no puncture. She states it was sore for couple days. But then the pain came back. She notes pain from the mid to proximal forearm. She notes that today she was out painting and got some sunburn in the area but it was not red before. Patient states she is concerned that she may have a fracture because of how powerful the dog's bites are. She also notes that she has carpal tunnel and wonders if her carpal tunnel pain is causing symptoms in her proximal forearm. [facility] Medical History Blister History of renal disease Anemia Injury of head and neck Syncope Difficulty chewing Dietary restriction History of ulceration Gastric reflux Shortness of breath on exertion Neuropathy History of pain when walking History of edema History of echocardiogram History of stress test Hypertension Hydronephrosis Right ureteral stone H/O ETOH abuse Homelessness Bipolar disorder Former smoker Degenerative arthritis Bilateral carpal tunnel syndrome Paresthesia of upper extremity Chronic low back pain Pyelonephritis Renal stones Anxiety and depression Urticaria Open wound of both lower extremities Type 2 diabetes mellitus Osteoarthritis Diabetes Ectopic PTSD (post-traumatic stress disorder) Home Medications ?Medication ?Instructions ?Recorded ?Last Taken ?Type clindamycin HCl 300 mg capsule 300 mg PO Q6H #40 CAPSULES 07/31/23 Unknown Rx (Cleocin HCl) ibuprofen 600 mg tablet 600 mg PO Q6H PRN PRN fever #20 07/31/23 Unknown Rx TABLETS lisinopril 20 mg tablet 20 mg PO DAILY #30 tabs 07/31/23 Unknown Rx oxycodone-acetaminophen 5 mg-325 1 tab PO Q6H PRN PRN Pain 3 days 08/02/23 Unknown Rx mg tablet #12 TABLETS hydrocodone-acetaminophen 5-325mg 1 tab PO Q6H PRN PRN Pain 3 days 08/31/23 Unknown Rx 5mg-325mg #10 TABLETS Allergy/AdvReac Type Severity Reaction Status Date / Time Penicillins Allergy Hives Verified 10/15/23 18:23 venom-honey bee (bee venom Allergy Anaphylaxis Verified 10/15/23 18:23 (honey bee)) Family History Other Alcoholism Anxiety Arthritis Asthma Cancer Cervical cancer Depression Diabetes Heart disease Hypertension Myocardial infarction Ovarian cancer Surgical History Hx of cystoscopy History of tubal ligation Hx of cholecystectomy Social History Smoking Status: Former smoker alcohol intake: current alcohol intake frequency: holidays/special occasions only substance use type: does not use what type of physical activity do you participate in: walking ROS ROS ED Constitutional Constitutional ED: Denies chills, fever(s) or weight loss Eyes Eyes: Denies change in vision or diplopia ENT ENT ED: Denies ear pain, rhinorrhea or sore throat Cardiovascular Cardiovascular: Denies chest pain, orthopnea, palpitations or racing heartbeat Respiratory/Chest Respiratory/Chest: Denies cough, dyspnea or orthopnea Gastrointestinal Gastrointestinal: Denies abdominal pain, diarrhea, nausea or vomiting Genitourinary Genitourinary ED: Denies dysuria, hematuria or urinary frequency Musculoskeletal Musculoskeletal: Reports other Details: Right forearm pain ; Denies arthralgias or myalgias Integumentary Reports Abrasions; Denies abscess or rash Neurologic Neurologic: Denies headache(s) or weakness Psychiatric Psychiatric: Denies anxiety, depression, suicidal ideation or suicidal thoughts Endocrine Endocrinology: Denies polydipsia, polyphagia or polyuria Allergic/Immunologic Allergic/Immunologic ED: Denies mouth swelling, tongue swelling or urticaria EXAM Physical Exam Const Vital Signs: 10/15/23 18:12 10/15/23 18:12 Temperature 96.3 F L Temperature Source Temporal Pulse Rate 96 99 Respiratory Rate 16 14 Blood Pressure 179/110 H 187/113 H Blood Pressure Mean 133 137 Pulse Ox 96 97 Oxygen Delivery Method Room Air Room Air Positive well nourished and well developed General Appearance ED: well developed HEENT Reports normocephalic, head/scalp atraumatic and moist mucous membranes Eyes PERRL and EOMs intact bilaterally Neck no lymphadenopathy, supple and no JVD Resp normal respiratory effort and clear to auscultation bilaterally Cardio regular rate, regular rhythm and no murmurs GI normal to inspection, nondistended, normoactive bowel sounds and non-tender Palpation: soft Back/Spine no CVA tenderness and normal ROM Extremity Extremity Narrative: There is a sunburn with sharp line demarcation from the patient's glove starting at the proximal right wrist over onto the dorsal surface of the forearm and the distal to mid upper arm laterally with sharp demarcation from her T-shirt line. I do not appreciate cellulitic changes or lymphangitis. There is tenderness in the mid forearm musculature approximately over the dorsal lateral surface. There is a superficial healing abrasion anteriorly of the mid forearm. Neurovascular intact distal. General Extremety ED: Negative for edema General Extremity: Negative for edema Neuro oriented x3 and CN's II-XII intact bilaterally Sensorium / Orientation: alert Motor Exam: strength 5/5 throughout Psych mental status grossly normal Mood & Affect: Negative for depressed or tearful Skin no rashes or lesions noted and no wounds MDM MDM MDM Narrative Medical decision making narrative: Differential diagnosis includes but not limited to fracture bone contusion soft tissue contusion muscular contusion infection/cellulitis retained dog tooth My independent interpretation of the plain films of the right forearm is no acute fracture. Radiology concurs. Patient be discharged home with supportive care. I suspect this is more of a contusion with follow-up in 1 week if not improved History & Record Review Discussion w/independent historian: Patient Discharge Plan Triage Chief Complaint: Upper Extremity Injury ED Provider: Jamir Rodriguez Dx/Rx/DC Orders Clinical Impression: Contusion of forearm, Forearm pain Instructions: Bruises (Contusions) Prescriptions: No Action oxycodone-acetaminophen 5-325 mg tablet 1 tab PO Q6H PRN PRN (Reason: Pain) 3 Days Qty: 12 0RF lisinopril 20 mg tablet 20 mg PO DAILY Qty: 30 2RF clindamycin HCl [Cleocin HCl] 300 mg capsule 300 mg PO Q6H Qty: 40 0RF ibuprofen 600 mg tablet 600 mg PO Q6H PRN PRN (Reason: fever) Qty: 20 0RF hydrocodone-acetaminophen 5-325 mg tablet 1 tab PO Q6H PRN PRN (Reason: Pain) 3 Days Qty: 10 0RF Primary Care Provider: Brett Yanez Referrals: Brett Yanez MD [Primary Care Provider] - 1 Week if not improving Print Language: Slovenian Disposition Disposition: Home, Self Care
--- NOTE | 2023-10-15 19:28 | RAD_ITS ---
INDICATION: injury EXAMINATION/TECHNIQUE: X-RAY - RIGHT XR Forearm 2 Views 2 VIEWS COMPARISON: Right wrist x-rays 04/29/2023 FINDINGS: BONES: No fracture demonstrated. JOINTS: No dislocation. Mild widening of the scapholunate distance is not significantly changed compared to the prior. SOFT TISSUES: Unremarkable. RAD/Forearm 2 Views IMPRESSION: No evidence of fracture. Electronically Signed: Madai Leon MD at 20:06 EDT ,
== END 2023-10-15 20:32 | disposition home or self-care (01) ==
PROVIDERS: Emergency Provider Emergency Medicine; PCP Internal Medicine; Visit Provider Emergency Medicine
DX: S50.11XA Contusion of right forearm, initial encounter (principal); W54.0XXA Bitten by dog, initial encounter; Y93.89 Activity, other specified; I10 Essential (primary) hypertension; Z79.899 Other long term (current) drug therapy; Z87.891 Personal history of nicotine dependence
CPT/HCPCS: 73090; 99282

== ENCOUNTER 2023-11-18 17:29 | Emergency (ER) | payer MEDICAID, SELFPAY ==
[2023-11-18 17:29] VITALS: BP 187/118; PULSE 101; RESP 16; O2SAT 99
[2023-11-18 17:30] VITALS: BP 187/118; PULSE 103; RESP 16; TEMP 37.2; O2SAT 98; BMI 38.0
--- NOTE | 2023-11-18 17:56 | EX.ED.GENINJ ---
HPI History of Present Illness Chief Complaint: Bite Informant: patient and spouse/S.O. Narrative Narrative: 48-year-old female presenting to the emergency room with dog bite to the left hand. Patient states that she saw a dog trap reviewing a fence post and a tree and tried to free it. She states that the dog bit her left non-dominant hand. Patient is concerned she may need sutures. She is a diabetic. Unknown last tetanus. [facility] Medical History Blister History of renal disease Anemia Injury of head and neck Syncope Difficulty chewing Dietary restriction History of ulceration Gastric reflux Shortness of breath on exertion Neuropathy History of pain when walking History of edema History of echocardiogram History of stress test Hypertension Hydronephrosis Right ureteral stone H/O ETOH abuse Homelessness Bipolar disorder Former smoker Degenerative arthritis Bilateral carpal tunnel syndrome Paresthesia of upper extremity Chronic low back pain Pyelonephritis Renal stones Anxiety and depression Urticaria Open wound of both lower extremities Type 2 diabetes mellitus Osteoarthritis Diabetes Ectopic PTSD (post-traumatic stress disorder) Home Medications ?Medication ?Instructions ?Recorded ?Last Taken ?Type clindamycin HCl 300 mg capsule 300 mg PO Q6H #40 CAPSULES 07/31/23 Unknown Rx (Cleocin HCl) ibuprofen 600 mg tablet 600 mg PO Q6H PRN PRN fever #20 07/31/23 Unknown Rx TABLETS lisinopril 20 mg tablet 20 mg PO DAILY #30 tabs 07/31/23 Unknown Rx oxycodone-acetaminophen 5 mg-325 1 tab PO Q6H PRN PRN Pain 3 days 08/02/23 Unknown Rx mg tablet #12 TABLETS hydrocodone-acetaminophen 5-325mg 1 tab PO Q6H PRN PRN Pain 3 days 08/31/23 Unknown Rx 5mg-325mg #10 TABLETS amoxicillin 875 mg-potassium 875 mg PO Q12H #14 TABLETS 11/18/23 Unknown Rx clavulanate 125 mg tablet oxycodone-acetaminophen 5 mg-325 1 tab PO Q6H PRN PRN Pain 3 days 11/18/23 Unknown Rx mg tablet #9 TABLETS Allergy/AdvReac Type Severity Reaction Status Date / Time Penicillins Allergy Hives Verified 10/15/23 18:23 venom-honey bee (bee venom Allergy Anaphylaxis Verified 10/15/23 18:23 (honey bee)) Family History Other Alcoholism Anxiety Arthritis Asthma Cancer Cervical cancer Depression Diabetes Heart disease Hypertension Myocardial infarction Ovarian cancer Surgical History Hx of cystoscopy History of tubal ligation Hx of cholecystectomy Social History Smoking Status: Former smoker alcohol intake: current alcohol intake frequency: holidays/special occasions only substance use type: does not use what type of physical activity do you participate in: walking ROS ROS ED Constitutional Constitutional ED: Denies chills, fever(s) or weight loss Eyes Eyes: Denies change in vision or diplopia ENT ENT ED: Denies ear pain, rhinorrhea or sore throat Cardiovascular Cardiovascular: Denies chest pain, orthopnea, palpitations or racing heartbeat Respiratory/Chest Respiratory/Chest: Denies cough, dyspnea or orthopnea Gastrointestinal Gastrointestinal: Denies abdominal pain, diarrhea, nausea or vomiting Genitourinary Genitourinary ED: Denies dysuria, hematuria or urinary frequency Musculoskeletal Musculoskeletal: Reports other; Denies arthralgias or myalgias Integumentary Reports Abrasions and other; Denies abscess or rash Neurologic Neurologic: Denies headache(s) or weakness Psychiatric Psychiatric: Denies anxiety, depression, suicidal ideation or suicidal thoughts Endocrine Endocrinology: Denies polydipsia, polyphagia or polyuria Allergic/Immunologic Allergic/Immunologic ED: Denies mouth swelling, tongue swelling or urticaria EXAM Physical Exam Const Vital Signs: 11/18/23 17:29 11/18/23 17:30 Temperature 99 F Temperature Source Temporal Pulse Rate 101 H 103 H Respiratory Rate 16 16 Blood Pressure 187/118 H 187/118 H Blood Pressure Mean 141 141 Pulse Ox 99 98 Oxygen Delivery Method Room Air Room Air Positive well nourished, well developed and obese General Appearance ED: well developed and NAD Nutritional Appearance: obese HEENT Reports normocephalic, head/scalp atraumatic and moist mucous membranes Eyes PERRL and EOMs intact bilaterally Neck no lymphadenopathy, supple and no JVD Resp normal respiratory effort and clear to auscultation bilaterally Cardio regular rate, regular rhythm and no murmurs GI normal to inspection, nondistended, normoactive bowel sounds and non-tender Palpation: soft Back/Spine no CVA tenderness and normal ROM Extremity normal to inspection General Extremety ED: Negative for edema General Extremity: Negative for edema Neuro oriented x3 and CN's II-XII intact bilaterally Sensorium / Orientation: alert Motor Exam: strength 5/5 throughout Psych mental status grossly normal Mood & Affect: Negative for depressed or tearful Skin no rashes or lesions noted Skin Narrative: There are multiple abrasions and puncture wounds on the left hand. Notably the dorsum of the PIP joint of the middle finger, along the medial and lateral aspects of the proximal phalanx of the long and ring finger. These wounds do not appear gaping. I do not palpate foreign body. Tendon function appears normal. I do not visualize any tendon. Sensation is preserved. MDM MDM MDM Narrative Medical decision making narrative: Differential diagnosis includes but not limited to dog bite laceration abrasions foreign body tendon injury neurovascular injury fracture Patient received a dose of Motrin oxycodone as well as Augmentin and her tetanus was updated. Wounds will be cleansed and dressed. The little finger will be kept in extension with aluminum foam splint as the half centimeter laceration is just proximal to the joint it would most likely benefit from not being bent to allow for wound healing. I am hesitant to stitch this given the high risk of infection. Patient will continue Augmentin at home. Follow-up with primary care next week. History & Record Review Discussion w/independent historian: Patient Radiography Diagnostic Testing: Clinical Impression(s) from Imaging Studies Hand X-Ray 11/18/23 18:20 IMPRESSION: No acute radiographic abnormalities. Electronically Signed: Dick Knox MD at 18:52 EDT , Discharge Plan Triage Chief Complaint: Bite ED Provider: Jamir Rodriguez Dx/Rx/DC Orders Clinical Impression: Dog bite of left hand, [id number] (DTP) vaccination Instructions: ED Dog Bite Prescriptions: New oxycodone-acetaminophen 5-325 mg tablet 1 tab PO Q6H PRN PRN (Reason: Pain) 3 Days Qty: 9 0RF amoxicillin-pot clavulanate 875-125 mg tablet 875 mg PO Q12H Qty: 14 0RF No Action oxycodone-acetaminophen 5-325 mg tablet 1 tab PO Q6H PRN PRN (Reason: Pain) 3 Days Qty: 12 0RF lisinopril 20 mg tablet 20 mg PO DAILY Qty: 30 2RF clindamycin HCl [Cleocin HCl] 300 mg capsule 300 mg PO Q6H Qty: 40 0RF ibuprofen 600 mg tablet 600 mg PO Q6H PRN PRN (Reason: fever) Qty: 20 0RF hydrocodone-acetaminophen 5-325 mg tablet 1 tab PO Q6H PRN PRN (Reason: Pain) 3 Days Qty: 10 0RF Primary Care Provider: Brett Yanez Referrals: Brett Yanez MD [Primary Care Provider] - 5-7 Days Activity Restrictions/Additional Instructions: I would recommend soap and water with your showers. Antibiotic ointment once a day. I would keep the little finger in the aluminum splint at least for the next 5 days to allow proper wound healing. You are at high risk for infection please monitor your wounds closely. Print Language: Luxembourgish Disposition Disposition: Home, Self Care
[2023-11-18] MEDS: Amox/Clavulanate 875 MG Tablet PO (18:03)
[2023-11-18] MEDS: Diphth,Pertuss(Acell),Tet Vac 0.5 ML Vial IM (18:04)
[2023-11-18] MEDS: Ibuprofen 600 MG Tablet PO (18:04)
[2023-11-18] MEDS: oxyCODONE 5 MG Tablet PO (18:06)
--- NOTE | 2023-11-18 18:20 | RAD_ITS ---
INDICATION: dog bite EXAMINATION/TECHNIQUE: X-RAY - LEFT XR Hand Min 3 Views COMPARISON: None. FINDINGS: No acute fracture or malalignment. No blastic or lytic lesions. No degenerative changes are seen. The soft tissues are unremarkable. RAD/Hand Min 3 Views IMPRESSION: No acute radiographic abnormalities. Electronically Signed: Dick Knox MD at 18:52 EDT ,
== END 2023-11-18 19:40 | disposition home or self-care (01) ==
PROVIDERS: Emergency Provider Emergency Medicine; PCP Internal Medicine; Referring Provider Emergency Medicine; Visit Provider Emergency Medicine
DX: S61.452A Open bite of left hand, initial encounter (principal); E11.9 Type 2 diabetes mellitus without complications; Z87.891 Personal history of nicotine dependence; W54.0XXA Bitten by dog, initial encounter; I10 Essential (primary) hypertension; Z23 Encounter for immunization; Y93.89 Activity, other specified; Z79.899 Other long term (current) drug therapy; Z98.51 Tubal ligation status; Z90.49 Acquired absence of other specified parts of digestive tract
CPT/HCPCS: 73130; 90471; 90715; 99284

== ENCOUNTER 2024-01-04 09:39 | Emergency (ER) | payer MEDICAID, SELFPAY ==
[2024-01-04 09:39] VITALS: BP 176/110; PULSE 82; RESP 16; TEMP 36.8; O2SAT 99; BMI 37.7
--- NOTE | 2024-01-04 10:59 | EDS_ITS ---
HPI History of Present Illness Chief Complaint: Back Onset/Context/Timing Onset: Weeks (1.5) Context: Gradual Onset Injury: lifting Timing: Continuous Location: Lumbar Worsened by: improves with Ambulation Relieved by: Nothing Associated Symptoms Associated Symptoms: Numbness and Abdominal Pain; Negative for Tingling, Radiation to Right Leg, Radiation to Left Leg, Fever, Dysuria, Unable to Ambulate, Unable to Transfer, Urinary Retention, Urinary Incontinence, Constipation or Fecal Incontinence Narrative Narrative: Patient presents with back pain that has been getting worse over the past 1-1/2 weeks. Patient states she was doing extra lifting at work. Patient states her pain has been constant over the past week and a half. Patient describes it as throbbing. Patient states she has pain over her lower lumbar area. Patient denies any radiation of the pain. Patient admits to some numbness and tingling down her left leg. Patient relates her abdomen does radiate into her abdomen. Denies any bowel or bladder changes. Patient denies any saddle anesthesia. [facility] Medical History (Updated 01/04/24 @ 12:[address] Chandana London, ) Cellulitis of left little finger Blister History of renal disease Anemia Injury of head and neck Syncope Difficulty chewing Dietary restriction History of ulceration Gastric reflux Shortness of breath on exertion Neuropathy History of pain when walking History of edema History of echocardiogram History of stress test Hypertension Hydronephrosis Right ureteral stone H/O ETOH abuse Homelessness Bipolar disorder Former smoker Degenerative arthritis Bilateral carpal tunnel syndrome Paresthesia of upper extremity Chronic low back pain Pyelonephritis Renal stones Anxiety and depression Urticaria Open wound of both lower extremities Type 2 diabetes mellitus Osteoarthritis Diabetes Ectopic PTSD (post-traumatic stress disorder) Home Medications ?Medication ?Instructions ?Recorded ?Last Taken ?Type ibuprofen 600 mg tablet 600 mg PO Q6H PRN PRN fever #20 07/31/23 Unknown Rx TABLETS lisinopril 20 mg tablet 20 mg PO DAILY #30 tabs 07/31/23 Unknown Rx amoxicillin 875 mg-potassium 875 mg PO Q12H #14 TABLETS 11/18/23 Unknown Rx clavulanate 125 mg tablet metaxalone 800 mg tablet 800 mg PO QHS PRN PRN muscle pain 01/04/24 Unknown Rx #10 tabs naproxen 500 mg tablet (Naprosyn) 500 mg PO BID PRN pain #20 tabs 01/04/24 Unknown Rx Allergy/AdvReac Type Severity Reaction Status Date / Time venom-honey bee (bee venom Allergy Anaphylaxis Verified 01/04/24 09:41 (honey bee)) Family History Other Alcoholism Anxiety Arthritis Asthma Cancer Cervical cancer Depression Diabetes Heart disease Hypertension Myocardial infarction Ovarian cancer Surgical History (Updated 01/04/24 @ 11:[address] Chandana London DO) Hx of lithotripsy Hx of cystoscopy History of tubal ligation Hx of cholecystectomy Social History Smoking Status: Former smoker alcohol intake: current alcohol intake frequency: holidays/special occasions only substance use type: does not use what type of physical activity do you participate in: walking ROS ROS ED Constitutional Constitutional ED: Denies chills or fever(s) Eyes Eyes: Denies blurry vision or change in vision ENT ENT ED: Denies rhinorrhea or sore throat Cardiovascular Cardiovascular: Denies chest pain or palpitations Respiratory/Chest Respiratory/Chest: Denies cough or dyspnea Gastrointestinal Gastrointestinal: Reports abdominal pain; Denies nausea or vomiting Genitourinary Genitourinary ED: Denies dysuria or hematuria Musculoskeletal Musculoskeletal: Reports back pain; Denies neck pain Integumentary Denies abscess or rash Neurologic Neurologic: Reports headache(s); Denies weakness Allergic/Immunologic Allergic/Immunologic ED: Denies mouth swelling or urticaria EXAM Physical Exam Const Vital Signs: 01/04/24 09:39 Temperature 98.2 F Temperature Source Oral Pulse Rate 82 Respiratory Rate 16 Blood Pressure 176/110 H Blood Pressure Mean 132 Pulse Ox 99 Oxygen Delivery Method Room Air Positive well nourished and well developed General Appearance ED: well developed and NAD HEENT Reports moist mucous membranes Neck supple and no JVD Resp normal respiratory effort and clear to auscultation bilaterally Cardio regular rate and regular rhythm GI soft to palpation, non-tender and non-distended Back/Spine Back/Spine Narrative: There is mild tenderness of the lumbar spine and paraspinal muscles. There is no bony crepitance or step-off noted. Range of motion was limited in all motions of the lumbar spine secondary to pain. Strength is 5/5 bilateral in the lower extremities. There is pain with elevation of the left lower extremity however it is only in her back. There is no radicular pain with this. There are no sensory deficits noted. Deep tendon reflexes are 1+/4 bilaterally in the lower extremities. Lumbar Spine / Lower Back: ROM limited and straight leg raise negative bilaterally Extremity normal to inspection General Extremety ED: Negative for edema or tenderness General Extremity: Negative for edema Neuro oriented x3 and no sensory deficits noted Sensorium / Orientation: alert Motor Exam: strength 5/5 throughout Deep Tendon Reflexes: Rt Patellar (L4): 1+, Lt Patellar (L4): 1+, Rt Ankle (S1): 1+ and Lt Ankle (S1): 1+ Deep Tendon Reflexes Back: Rt Patellar (L4): 1+, Lt Patellar (L4): 1+, Rt Ankle (S1): 1+ and Lt Ankle (S1): 1+ Psych mental status grossly normal MDM MDM MDM Narrative Medical decision making narrative: Differential diagnosis includes lumbosacral strain, spondylolisthesis, and lumbar compression. X-rays of the lumbar spine will be examined fracture on the low states this. Radiography X-Ray: LS SPine, Read by ED Physician, Read by Radiologist, YIMI and Spondylolisthesis Diagnostic Testing: Clinical Impression(s) from Imaging Studies Lumbar Spine X-Ray 01/04/24 11:30 IMPRESSION: Multilevel endplate spondylosis. Grade 1 anterior spondylolisthesis of L4 on L5. Electronically Signed: Sissy Ovalles MD at 11:49 EDT Reading Location ID and State: [facility] / [place] Tel , Service support , X-rays of the lumbar spine were obtained. There are 2 views. On my independent interpretation, there is some mild degenerative changes noted. There is grade 1 spondylolisthesis of L4 on L5. There is no acute fracture. Radiologist also interpreted the x-rays and agrees. Treatment and Re-Evaluation Narrative: Patient was given injections of Toradol and Norflex here. The patient was advised of her findings. Patient was given a prescription for Naprosyn and Skelaxin. Patient was instructed to follow-up with her primary care physician in 5 to 7 days. Patient was instructed to return if worse in any way. Patient understood and was agreeable with the plan. All questions were answered. Discharge Plan Triage Chief Complaint: Back ED Provider: Chandana London Dx/Rx/DC Orders Clinical Impression: Acute myofascial strain of lumbosacral region, Chronic low back pain Instructions: ED Back Sprain/Strain Prescriptions: New naproxen [Naprosyn] 500 mg tablet 500 mg PO BID PRN (Reason: pain) Qty: 20 0RF metaxalone 800 mg tablet 800 mg PO QHS PRN PRN (Reason: muscle pain) Qty: 10 0RF No Action lisinopril 20 mg tablet 20 mg PO DAILY Qty: 30 2RF ibuprofen 600 mg tablet 600 mg PO Q6H PRN PRN (Reason: fever) Qty: 20 0RF amoxicillin-pot clavulanate 875-125 mg tablet 875 mg PO Q12H Qty: 14 0RF Stand Alone Forms: Work Status Form Primary Care Provider: Brett Yanez Referrals: Brett Yanez MD [Primary Care Provider] - 5-7 Days Print Language: Uruguayan Disposition Disposition: Home, Self Care
[2024-01-04] MEDS: Ketorolac 60 MG/2 ML Vial IM (11:24)
[2024-01-04] MEDS: Orphenadrine 60 MG/2 ML Ampul IM (11:24)
--- NOTE | 2024-01-04 11:30 | RAD_ITS ---
INDICATION: Injury/Pain EXAMINATION/TECHNIQUE: X-RAY - XR Spine Lumbar 2 or 3 Views COMPARISON: October 31, 2021 FINDINGS: VERTEBRAE: Preserved vertebral body height. There is multilevel endplate spondylosis. No fracture. No spondylolisthesis. There is a grade 1 anterior spondylolisthesis of L4 on L5. DISCS: Disc spaces are maintained. INCLUDED ABDOMEN: Included bowel gas pattern is non-obstructive. There are surgical clips within the right upper quadrant with prior ectomy. There is a tubal ligation clip visualized within the pelvis. RAD/Lumbar Spine 2 or 3 Views IMPRESSION: Multilevel endplate spondylosis. Grade 1 anterior spondylolisthesis of L4 on L5. Electronically Signed: Sissy Ovalles MD at 11:49 EDT ,
[2024-01-04 12:52] VITALS: BP 171/99; PULSE 89; RESP 18; TEMP 36.6; O2SAT 97
== END 2024-01-04 12:53 | disposition home or self-care (01) ==
PROVIDERS: Emergency Provider Emergency Medicine; PCP Internal Medicine; Visit Provider Emergency Medicine
DX: S39.012A Strain of muscle, fascia and tendon of lower back, initial encounter (principal); F31.9 Bipolar disorder, unspecified; E11.40 Type 2 diabetes mellitus with diabetic neuropathy, unspecified; I10 Essential (primary) hypertension; Z87.891 Personal history of nicotine dependence; G89.29 Other chronic pain; M43.16 Spondylolisthesis, lumbar region; R10.9 Unspecified abdominal pain; R51.9 Headache, unspecified; Z90.49 Acquired absence of other specified parts of digestive tract; Z98.51 Tubal ligation status; X50.0XXA Overexertion from strenuous movement or load, initial encounter; Y99.0 Civilian activity done for income or pay; Y92.89 Other specified places as the place of occurrence of the external cause
CPT/HCPCS: 72100; 96372; 99282

== ENCOUNTER 2024-08-28 14:02 | Emergency (ER) | payer MEDICAID, SELFPAY ==
[2024-08-28 14:02] VITALS: BP 210/111; BP 214/106; PULSE 114; PULSE 116; RESP 14; TEMP 36.7; O2SAT 100; O2SAT 98; BMI 40.8
--- NOTE | 2024-08-28 15:52 | ED.RN ---
pt complaining about wait in the waiting to other pt's. pt also giving her opinion as to who should go back first. I heard what that gujulien compliant was, you should have gone back before him pt stated to another pt and his family.
--- NOTE | 2024-08-28 16:10 | EDS_ITS ---
HPI History of Present Illness HPI Narrative: Patient presents with left knee pain that began 4 days ago. Patient states her knee had a valgus stress while pushing a van. Patient describes her pain as stabbing. Patient admits to some worsening pain with weightbearing. Patient states nothing makes it better. Patient states it is mainly over the posterior medial aspect of the left knee. Patient denies any paresthesias or weakness. Patient denies any other injuries. Patient also states that she feels like there is something in her left eye. Patient states it feels like there is something under her upper eyelid. Patient denies any trauma or injury. Patient denies any redness. Patient denies any visual changes. Chief Complaint: Lower Extremity Injury Informant: patient Occured/Mechanism Comment: Twisted left knee while pushing a car Onset/Context/Timing Onset: Days (4) Context: Sudden Onset Timing: Continuous Quality of Pain: Stabbing Location: Posterior medial aspect of left knee Worsened by: Weightbearing Relieved by: Nothing Associated Symptoms Associated Symptoms: Negative for Parasthesia, Weakness or Loss of Funtion PFSH PFS Medical History Cellulitis of left little finger Blister History of renal disease Anemia Injury of head and neck Syncope Difficulty chewing Dietary restriction History of ulceration Gastric reflux Shortness of breath on exertion Neuropathy History of pain when walking History of edema History of echocardiogram History of stress test Hypertension Hydronephrosis Right ureteral stone H/O ETOH abuse Homelessness Bipolar disorder Former smoker Degenerative arthritis Bilateral carpal tunnel syndrome Paresthesia of upper extremity Chronic low back pain Pyelonephritis Renal stones Anxiety and depression Urticaria Open wound of both lower extremities Type 2 diabetes mellitus Osteoarthritis Diabetes Ectopic PTSD (post-traumatic stress disorder) Home Medications ?Medication ?Instructions ?Recorded ?Last Taken ?Type cyclobenzaprine 5 mg tablet 5 mg PO TID PRN muscle spa sm #30 01/14/24 Unknown Rx tabs escitalopram oxalate 5 mg tablet 5 mg PO QDAY #30 tabs 01/14/24 Unknown Rx lisinopril 20 mg tablet 20 mg PO DAILY #30 tabs 10/29 Unknown Rx metformin 1,000 mg tablet 1,000 mg PO BID #60 tabs 10/29 Unknown Rx naproxen 500 mg tablet 500 mg PO BID PRN #20 tabs 0 08/28/24 Unknown Rx Allergy/AdvReac Type Severity Reaction Status Date / Time venom-honey bee (bee venom Allergy Anaphylaxis Verified 08/28/24 14:03 (honey bee)) Family History Other Alcoholism Anxiety Arthritis Asthma Cancer Cervical cancer Depression Diabetes Heart disease Hypertension Myocardial infarction Ovarian cancer Surgical History Hx of lithotripsy Hx of cystoscopy History of tubal ligation Hx of cholecystectomy Social History Smoking Status: Former smoker alcohol intake: current alcohol intake frequency: holidays/special occasions only substance use type: does not use what type of physical activity do you participate in: walking ROS ROS ED Constitutional Constitutional ED: Denies chills or fever(s) Eyes Eyes: Denies blurry vision or change in vision ENT ENT ED: Denies rhinorrhea or sore throat Cardiovascular Cardiovascular: Denies chest pain or palpitations Respiratory/Chest Respiratory/Chest: Denies cough or dyspnea Gastrointestinal Gastrointestinal: Denies nausea or vomiting Genitourinary Genitourinary ED: Denies dysuria or hematuria Musculoskeletal Musculoskeletal: Reports back pain; Denies neck pain Integumentary Denies abscess or rash Neurologic Neurologic: Reports headache(s); Denies weakness Allergic/Immunologic Allergic/Immunologic ED: Denies mouth swelling or urticaria EXAM Physical Exam Const Vital Signs: 08/28/24 14:02 08/28/24 14:02 Temperature 98.1 F Temperature Source Temporal Pulse Rate 114 H 116 H Respiratory Rate 14 14 Blood Pressure 210/111 H 214/106 H Blood Pressure Mean 144 142 Pulse Ox 98 100 Oxygen Delivery Method Room Air Room Air Positive well nourished and well developed General Appearance ED: well developed and NAD HEENT Reports moist mucous membranes Eyes PERRL Eyes Narrative: There is a small hordeolum over the medial aspect of the left upper eyelid. There are no foreign bodies noted. The eyelid was everted. There is no foreign body noted under the eyelid. Conjunctiva was clear bilaterally. The anterior chamber was clear. Neck full ROM and supple Extremity Extremity Narrative: There is tenderness over the posterior medial aspect of the left knee. There is no bony crepitance or step-off. There is no effusion noted. Range of motion was slightly limited in all motions of the left knee secondary to pain. Strength is 5/5 bilaterally in the lower extremities. There are no sensory deficits noted. Pedal pulses are equal bilaterally. Neuro oriented x3, CN's II-XII intact bilaterally, moves all extremities and no sensory deficits noted Sensorium / Orientation: alert Motor Exam: strength 5/5 throughout Psych mental status grossly normal MDM MDM MDM Narrative Medical decision making narrative: Differential diagnosis includes fracture, sprain, meniscus tear, and tendinitis. X-rays of the left knee will be obtained to assess for occult fracture. Radiography Diagnostic Testing: Clinical Impression(s) from Imaging Studies Knee X-Ray 08/28/24 16:25 IMPRESSION: Calcification measuring 2 mm projects over the medial joint space, possibly an intra-articular loose body, though superimposed soft tissue calcification could appear similar. Otherwise unremarkable left knee radiographs. Reading Location: [facility] X-rays of the left knee were obtained. There are 4 views. On my independent interpretation, there is no acute fracture. There is a questionable intra- articular loose body. Radiologist also interpreted the x-ray and agrees. Treatment and Re-Evaluation Narrative: The left eye was irrigated with normal saline. Patient was advised of her findings. Patient was instructed to ice and elevate the left knee. Patient was given a knee immobilizer. Patient was instructed to follow-up with her primary care physician in 5 to 7 days for further evaluation. Patient was also given a referral for orthopedics. Patient understood and was agreeable with the plan. All questions were answered. Discharge Plan Triage Chief Complaint: Lower Extremity Injury ED Provider: Chandana London Dx/Rx/DC Orders Clinical Impression: Acute pain of left knee, Sensation of foreign body in left eye Instructions: Knee Pain, ED Pain, Acute, Uncertain Cause Prescriptions: New naproxen 500 mg tablet 500 mg PO BID PRN Qty: 20 0RF Discontinued ibuprofen 600 mg tablet 600 mg PO Q6H PRN PRN (Reason: fever) Qty: 20 0RF No Action lisinopril 20 mg tablet 20 mg PO DAILY Qty: 30 2RF escitalopram oxalate 5 mg tablet 5 mg PO QDAY Qty: 30 2RF metformin 1,000 mg tablet 1,000 mg PO BID Qty: 60 2RF cyclobenzaprine 5 mg tablet 5 mg PO TID PRN (Reason: muscle spasm) Qty: 30 0RF Rx Instructions: Can take 1/2 tablet morning and afternoon and 1 full tablet at night Primary Care Provider: Brett Yanez Referrals: Brett Yanez MD [Primary Care Provider] - 5-7 Days Travis Sky DO [Med Staff - Active Staff] - 1 Week Print Language: Thai Disposition Disposition: Home, Self Care
--- NOTE | 2024-08-28 16:25 | RAD_ITS ---
PROCEDURE: KNEE 4 OR MORE VIEWS 08/28/2024 REASON FOR EXAM: INJURY/PAIN TECHNIQUE: KNEE 4 OR MORE VIEWS COMPARISON: Left knee radiographs 10/08/2020 FINDINGS: No acute fracture or traumatic malalignment. There is a calcification measuring 2 mm projecting over the medial joint space on the frontal view. Joint spaces are predominantly maintained. No significant knee joint effusion, with evaluation limited by patient positioning. Punctate mineralization in the prepatellar soft tissues is unchanged. RAD/Knee 4 or More Views IMPRESSION: Calcification measuring 2 mm projects over the medial joint space, possibly an intra-articular loose body, though superimposed soft tissue calcification could appear similar. Otherwise unremarkable left kn ee radiographs. Reading Location: [facility]
== END 2024-08-28 18:25 | disposition home or self-care (01) ==
PROVIDERS: Emergency Provider Emergency Medicine; PCP Internal Medicine; Referring Provider Emergency Medicine; Visit Provider Emergency Medicine
DX: M25.562 Pain in left knee (principal); E11.40 Type 2 diabetes mellitus with diabetic neuropathy, unspecified; Z87.891 Personal history of nicotine dependence; I10 Essential (primary) hypertension; Z90.49 Acquired absence of other specified parts of digestive tract; Z98.51 Tubal ligation status; M54.9 Dorsalgia, unspecified; R51.9 Headache, unspecified; H57.8A2 Foreign body sensation, left eye
CPT/HCPCS: 73564; 99284